=== PATIENT | male | born 1940 | race Caucasian/White ===

== ENCOUNTER 2017-05-15 10:20 | Inpatient (IN) | payer MEDICARE, BC ==
--- NOTE | 2017-04-29 21:50 | HP ---
HISTORY AND PHYSICAL: DATE OF ADMISSION/SURGERY: 05/15/17 DATE OF OFFICE VISIT: 04/28/17 SURGEON: Shiela Avalos MD* (dictated by SARAH Anderson). PROCEDURE: Right total hip arthroplasty. CHIEF COMPLAINT: Right hip pain. HISTORY OF PRESENT ILLNESS: Mr. 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 He has failed conservative management and has elected to proceed with a right total hip arthroplasty, which is scheduled for 05/15/17. PAST MEDICAL HISTORY: Epilepsy, hypertension, sleep apnea, AFib, Parkinson's, and glaucoma. PAST SURGICAL HISTORY: Appendectomy, cataract removal, bilateral total knee arthroplasties, and cholecystectomy. CURRENT MEDICATIONS: 1. Potassium chloride 20 mEq 3 tabs every day. 2. Propafenone HCl ER 425 mg every 12 hours. 3. Carbidopa and levodopa 25/100, take one and half tablets by mouth 20 minutes prior to breakfast, lunch, and dinner. 4. Metoprolol 125 mg daily. 5. Pradaxa 150 mg twice daily. 6. Depakote 500 mg 3 tabs every night. 7. Hydrochlorothiazide 25 mg daily. 8. Amlodipine 10 mg daily. 9. Citrucel 500 mg daily. 10. Allopurinol 100 mg 2 tabs daily. 11. Timolol maleate eyedrops. 12. Duloxetine 60 mg daily. 13. Cholestyramine 4 mg twice daily. ALLERGIES: To PENICILLIN. FAMILY HISTORY: Prostate cancer, breast cancer. SOCIAL HISTORY: He is a 77-year-old gentleman. He lives alone. He does not smoke, use drugs, or alcohol. REVIEW OF SYSTEMS: A complete 14-point review of systems was reviewed with the patient; it was positive for epilepsy. He denies history of DVT, PE, anesthesia problems, hepatitis C, or HIV. PHYSICAL EXAMINATION GENERAL: Well developed, well nourished, in no acute distress. VITAL SIGNS: He stands 5 feet 4 inches tall, weighs 233 pounds, his blood pressure is 130/64, his heart rate is 64. HEENT: Normocephalic, atraumatic. NECK: Supple. No palpable lymph nodes. PULMONARY: Lungs are clear to auscultation bilaterally. CARDIO: Regular rate and rhythm. Strong S1, S2. ABDOMEN: Soft, nontender, and nondistended. NEUROLOGICAL: Alert and oriented x3. Cranial nerves II through XII are intact. MUSCULOSKELETAL: Right lower extremity, the skin is intact. There are no open wounds or abrasions. He has decreased internal and external rotation of the right hip. He walks with an antalgic-type gait favoring his right leg. His lower extremity muscle group strengths are intact at 5/5. He has 2+ dorsalis pedis pulses and intact sensation. ASSESSMENT AND PLAN: Mr. Dewitt is a 77-year-old gentleman with complaints of right hip pain secondary to end-stage osteoarthritis. He has failed conservative management and has elected to proceed with a right total hip arthroplasty, which is scheduled for 05/15/[address] Avalos discussed the risks and benefits of the surgery at today's visit and all of his questions were answered. He will follow up with Dr. Avalos in 2 weeks after the surgery. SARAH ANDERSON [id number]/[facility] #: [id number] MTDAlida
[~2017-05-15 10:20] MED LIST: Buffered Lidocaine 0.9% SYRIN* 5 ML/SYR SYRINGE INTRADERM ONE; Gabapentin CAP(*) 400 MG PO ONE
[2017-05-15] MEDS ORDERED: ceFAZolin 2 GM PREMIX (*) 2 GM/50 ML BAG IVPB ONE (11:00)
[2017-05-15] MEDS ORDERED: Gabapentin CAP(*) 300 MG ONE (11:00)
[2017-05-15] MEDS ORDERED: fentaNYL* 50 MCG/ML 2 ML VIAL (100 MCG VIAL) ONE (13:47)
[2017-05-15] MEDS ORDERED: Midazolam* 1 MG/ML 10 ML VIAL (10 MG) ONE (13:47)
[2017-05-15] MEDS ORDERED: Morphine PF AMP (0.5MG/ML)* 5 MG/10 ML AMP ONE (13:47)
[2017-05-15] MEDS ORDERED: Bupivacaine 0.5% SDV PF* 30 ML VIAL ONE (13:48)
[2017-05-15] MEDS ORDERED: Polyethylene Glycol 3350* 17 GM PACKET PO PRN (14:49)
[2017-05-15] MEDS ORDERED: Bisacodyl SUPP* 10 MG SUPP PR PRN (14:49)
[2017-05-15] MEDS ORDERED: Nalbuphine* 20 MG/ML 1 ML VIAL IV PRN (15:06)
[2017-05-15] MEDS ORDERED: Naloxone* 0.4 MG/ML 1 ML VIAL IV PRN (15:06)
[2017-05-15] MEDS ORDERED: DiMENhydriNATE IV* 50 MG/ML VIAL IV PUSH PRN (15:06)
[2017-05-15] MEDS ORDERED: oxyCODONE/Acetamin 5/325 MG* TAB PO PRN (15:06)
--- NOTE | 2017-05-15 16:53 | RAD ---
INDICATION: Right total hip replacement surgery, preoperative study. COMPARISON: Comparison is made with a prior x-ray study of the right hip from April 28, 2017. TECHNIQUE: 2 portable AP films of the right hip were obtained in the OR prior to the patient's surgery. In addition a third film of the right hip was obtained during the patient's surgery. FINDINGS: The initial films demonstrate severe osteoarthritic change in the right hip. On the third film the patient is undergoing a total right hip replacement surgery. There is an acetabular prostheses in place and a femoral prostheses template in place. IMPRESSION: INTRAOPERATIVE CONTROL FILMS.
--- NOTE | 2017-05-15 18:34 | RAD ---
INDICATION: Status post total right hip replacement surgery. COMPARISON: Correlation is made with prior study from April 28, 2017. TECHNIQUE: An AP view of the pelvis and frontal and lateral views of the right hip were obtained. FINDINGS: The patient is status post total right hip replacement surgery. The bones and prostheses are in normal alignment. No fracture is seen. Incidental note is made of mild to moderate osteoarthritic change in the left hip. IMPRESSION: STATUS POST TOTAL RIGHT HIP REPLACEMENT SURGERY.
[2017-05-15] MEDS ORDERED: [UNRECOGNIZED DRUG - OTHER] PO SCH (21:00)
--- NOTE | 2017-05-15 21:31 | CONS ---
CC: Dr. Graeme Schwartz; Dr. Avalos * MEDICAL CONSULTATION REPORT: DATE OF CONSULT: 05/15/17 REQUESTING PROVIDER: Dr. Shiela Avalos. PRIMARY CARE PROVIDER: Dr. Graeme Schwartz. CONSULTING PROVIDER: SARAH Dougherty SUPERVISING PHYSICIAN: Dr. Clarita Leyva. CHIEF COMPLAINT: Status post right total hip arthroplasty with medical co- management consult for hospitalist. HISTORY OF PRESENT ILLNESS: This is a 77-year-old gentleman with Parkinson's as well as obstructive sleep apnea, paroxysmal atrial fibrillation, well- controlled seizure disorder, hypertension, and hyperlipidemia, who underwent elective right total hip arthroplasty with Dr. Avalos earlier today. Hospitalist group has been asked to consult for medical co-management. The patient was evaluated by his primary care provider as well as primary preparation department supervisor, Dr. Elliott, preoperatively. The patient underwent nuclear stress test earlier this month and his last echocardiogram was completed in February of this year as well. It appears that the patient was treated for urinary tract infection with 7 days of Macrobid preoperatively as his preop urinalysis and culture were positive for greater than 100,000 colonies of enterococcus. Recommendations from Dr. Elliott include holding his Pradaxa for 48 hours preoperatively and to resume postoperatively at the discretion of Orthopedic Surgery. The patient is instructed to continue his metoprolol and Rythmol perioperatively. At the time of evaluation, the patient is still somewhat sedated from anesthesia and unable to provide a full history but he does deny complaints of chest pain, shortness of breath, nausea, vomiting, or abdominal pain. Per primary care provider and Cardiology notes the patient is quite active, engages in regular exercise activities, and is able to climb at least 1 flight of stairs without stopping. PAST MEDICAL HISTORY: 1. Parkinson's. 2. Obstructive sleep apnea, noncompliant with CPAP. 3. Paroxysmal atrial fibrillation, maintained on Rythmol and metoprolol, and anticoagulated chronically with Pradaxa. 4. History of gout. 5. History of seizure disorder. 6. Hypertension. 7. Hyperlipidemia. PAST SURGICAL HISTORY: 1. Bilateral total knee arthroplasties. 2. Cholecystectomy. 3. Appendectomy. HOME MEDICATIONS: 1. Allopurinol 200 mg p.o. daily. 2. Amlodipine 10 mg p.o. daily. 3. Carbidopa/levodopa 1-1/2 tablets p.o. 3 times daily. 4. Pradaxa 150 mg p.o. twice daily. 5. Depakote 1500 mg p.o. at bedtime. 6. Duloxetine 60 mg p.o. daily. 7. Hydrochlorothiazide 25 mg p.o. daily. 8. Metoprolol tartrate 125 mg p.o. daily. 9. Potassium chloride 60 mEq p.o. daily. 10. Rythmol 425 mg p.o. twice daily. 11. Timolol 0.5% solution 1 drop in the right eye each evening. SOCIAL HISTORY: The patient is and lives alone. Nurse's aide helps with his providing medical care. He previously smoked a pipe and consumes 2 to 3 alcoholic beverages each evening. REVIEW OF SYSTEMS: As noted above in HPI, limited review of systems completed and noted to be negative. PHYSICAL EXAM: Most recent vitals, temperature 97.5 degrees Fahrenheit, pulse 52 beats per minute, respiratory rate 16, oxygen saturation 95% on 4 L, blood pressure 103/54 mmHg. General: This is a pleasant elderly gentleman, who is quite lethargic, still recovering from anesthesia in the recovery area. HEENT: Head is normocephalic, atraumatic. Mucous membranes are pink and moist. Cardiovascular: Heart has irregular rate and rhythm without murmurs, rubs, or gallops. Respiratory: Lungs are clear to auscultation without wheezes, crackles , or rhonchi. Abdomen: Abdomen is soft, nontender to palpation. Extremities: He has a hip pillow in place with surgical dressing over the right hip, no significant edema noted. Skin: Limited exam shows no concerning rashes or lesions. DIAGNOSTIC STUDIES/LAB DATA: Reviewed preop labs from 04/28/17, including a CBC and comprehensive metabolic panel. CBC is unremarkable with a preop hemoglobin of 15 g/dL. Preop metabolic panel is unremarkable with a creatinine of 0.95. Imaging: EKG from February 2017 showed sinus rhythm with first-degree block. Nuclear stress testing from 04/23/17 is read as low-risk study without evidence of ischemia or prior infarct. Echocardiogram from February of 2017 shows [id number] LVH with an EF of 55% to 60% and grade 1 diastolic dysfunction. ASSESSMENT AND PLAN: This is a 77-year-old gentleman with Parkinson's, obstructive sleep apnea, paroxysmal atrial fibrillation, seizure disorder, hypertension, hyperlipidemia, who underwent an elective total hip arthroplasty with Dr. Avalos earlier today. Hospitalist group has been consulted for medical co-management. 1. Status post right total hip arthroplasty - postoperative management including pain control, DVT prophylaxis, and discharge planning will be per Orthopedic Surgery. 2. Parkinson's - plan to continue his current home doses of Sinemet at this time. 3. Paroxysmal atrial fibrillation - plan to continue with Rythmol and metoprolol. Pradaxa has been held preoperatively, can be resumed postoperatively per clearance from Orthopedic Surgery. 4. Obstructive sleep apnea - the patient is not compliant with CPAP. 5. Seizure disorder - this is reportedly well controlled and we will plan to continue his home doses of Depakote and initiate seizure precautions during hospital stay. 6. Hypertension - the patient is hypotensive postoperatively. We will continue his beta erin but hold hydrochlorothiazide postop day 1 and if his metabolic panel is within normal limits, can resume for postop day 2. 7. Hyperlipidemia. 8. Code status. The patient is full code. 9. DVT prophylaxis will be per Orthopedic Surgery. He has Lovenox ordered. Recommend resuming Pradaxa when deemed appropriate by Orthopedic Surgery. 10. Healthcare proxy is the patient's daughter, Iamn Mcmanus. DISPOSITION: The patient is being admitted to orthopedic surgery service, hospitalist group will continue to follow along postoperatively. SARAH DOUGHERTY [id number]/[facility] #: [id number] RADHA
[2017-05-15] MEDS ORDERED: PROPAFENONE 325 MG PO ONE (22:00)
[2017-05-15] MEDS: Clindamycin 600 MG IVPREMIX(* 600 MG/50 ML SDV IV SCH (22:16)
[2017-05-15] MEDS: Timolol 0.5% OPTH.SOL* BTL RIGHT EYE SCH (22:20)
[2017-05-15] MEDS: Magnesium Hydroxide LIQ* 30 ML UDC PO SCH (22:22)
[2017-05-15] MEDS: Docusate CAP* 100 MG PO SCH (22:23)
[2017-05-15] MEDS: Divalproex DR TAB(*) 500 MG PO SCH (22:25)
[2017-05-16] MEDS: Clindamycin 600 MG IVPREMIX(* 600 MG/50 ML SDV IV SCH ×2 (04:09→11:21)
[2017-05-16] MEDS ORDERED: diPHENhydraMINE PO* 25 MG PO PRN (06:00)
[2017-05-16] MEDS ORDERED: Ondansetron INJ* 2 MG/ML VIAL IV PRN (06:00)
[2017-05-16] MEDS ORDERED: oxyCODONE TAB* 5 MG TAB PO PRN (06:00)
--- NOTE | 2017-05-16 07:08 | OP ---
OPERATIVE NOTE: DATE OF OPERATION: 05/15/17 DATE OF : 38 ATTENDING SURGEON: Shiela Avalos MD. METAL BONDING PRESS OPERATOR: SARAH Vásquez. Ms. Castro did help throughout the procedure with preparation of the leg, wound retraction, manipul ation of the hip, and would closure. ANESTHESIOLOGIST: Dr. Christian. ANESTHESIA: Spinal epidural. PRE-OP DIAGNOSIS: Severe endstage degenerative osteoarthritis of the right hip joint. POST-OP DIAGNOSIS: Severe endstage degenerative osteoarthritis of the right hip joint. OPERATIVE PROCEDURE: Right total hip arthroplasty. HARDWARE USED: This is uncemented Dierks total hip hardware. For the cup, a 58 cluster hole shell Tritanium cup. For the insert, a Trident X3 44F polyethylene insert, one single 25-mm cancellous bon e screw was used. For the femur, an Accolade TMZF, size 4.5 with a 127-degree neck. For the head, a 44 -2.5 ceramic V40 LFIT femoral head. COMPLICATIONS: None. EBL: 500 cc. SPECIMEN: Femoral head and acetabular reamings sent to pathology. BRIEF HISTORY/INDICATION: Mr. Dewitt is a 77-year-old gentleman with years of increasingly sever e right hip pain. He failed conservative treatment with antiinflammatories, pain medication, and amb ulatory assistive devices as well as physical therapy. Due to continued pain and decreased quality o f life, he elected to undergo a right total hip arthroplasty. Radiographs confirmed neap-ph-janh art hritis of the right hip. Informed consent was obtained from the patient. He understood the risks of surgery included but were not limited to bleeding, infection, damage to nearby structures, continued pain, need for further surgery, intraoperative fracture, nerve palsy, hardware failure or loosening, dislocation, leg length discrepancies, stroke, heart attack, blood clot, and . He wished to pr oceed. INTRAOPERATIVE FINDINGS: Intraoperatively, the patient had a markedly degenerative hip joint with fu ll-thickness loss of cartilage in the acetabulum and femoral head. He had a significant osteophyte fo rmation and calcification of the labrum. DESCRIPTION OF PROCEDURE: Mr. Dewitt was identified in the preanesthesia unit. His right lower e xtremity was marked as the correct operative site. Informed consent was signed and placed in the [facility] rt. The patient was taken to the operating room and placed under spinal epidural anesthesia without difficulty. Rubio catheter was placed. He was placed in the left lateral decubitus position on the peg board with all bony prominences well padded. Right lower extremity was prepped and draped in the usual sterile fashion. Preop time-out was made to correctly identify the patient, side, and site. Appropriate perioperative antibiotics were given within 1 hour of incision. A 16-cm posterior hip incision was made with a 10-blade. This was carried down sharply to the latera l fascia layer. There was at least 8 cm of subcutaneous fat. Lateral fascia layer was incised in matthew e with the skin incision. A large amount of fibrosis and bursitis along the trochanteric region was identified and excised. The piriformis and conjoint tendons were elevated off the posterolateral femu r using electrocautery and tagged with #5 Ethibonds. Next, the posterolateral capsular flap was made with electrocautery and tagged with #5 Ethibonds. The hip was carefully dislocated. Lesser troch t o center of the femoral head measured 60 mm. Oscillating saw was used to make the appropriate femora l neck cut and the femoral head was removed. The femur was carefully retracted anteriorly. After ap propriate placement of retractors, the acetabulum was easily visualized. There was a large amount of calcified labrum and osteophyte around the acetabulum. Anteriorly, some of this was removed. The ac etabulum was sequentially reamed up to a size 57 reamer. The 57 reamer had good fit with an establis hed subchondral bleeding bone bed. Trial 57 had good fit. Acetabular hardware chosen was a Tritaniu m cluster hole shell, size 58F. This was impacted without difficulty. Good stability was obtained. Appropriate abduction angle and anteversion was obtained. A single 25-mm screw was placed in the sup eroposterior quadrant for extra stability. A polyethylene liner was chosen. Trident X3 44F liner wa s chosen and impacted into the acetabulum. Stability of the liner was checked and rechecked and note d to be stable. Attention was next turned to preparation of the proximal femur. Canal finder and box cut osteotome w ere used to enter the proximal femur. Proximal femur was sequentially broached up to a size 4.5. e 4.5 broach had excellent fit. The 4.5 broach was left in and a 127 neck trial with a 44 head trial was chosen. Lesser troch to center of the femoral head measured 62 mm. The hip was reduced and carolyne en through range of motion. Hip was stable in all positions. There was good soft tissue tension and leg lengths were appropriate. The hip was carefully dislocated. The trials were all removed. Final implant chosen was an Accolade TMZF, size 4.5 with a 127-degree neck. This was impacted into the femoral canal without difficulty. This did sit up 2 mm more than the broach head. Therefore, a 44 -2.5 ceramic LFIT V40 femoral head was chosen as the final head. This was impacted onto the femoral neck without difficulty. Hip was reduced and taken through a range of motion. The hip was stable in all positions. The hip was copiou sly irrigated with sterile saline. Previously tagged capsule and tendons were reapproximated to the posterolateral femur through 2 trochanteric drill holes. The lateral fascia layer was closed using i nterrupted #1 Vicryls. The rest of the incision was closed in a layered fashion using 0 and 2-0 Vicry ls. Skin was closed using running Monocryl with Dermabond. Sterile Adaptic, 4x4s, and paper tape were used to cover the incision. The patient's anesthesia was reversed without difficulty. He was taken to the PACU in stable condition. Intended weightbearing w ill be weightbearing as tolerated. Intended DVT prophylaxis will be Coumadin with a Lovenox bridge. [id number]/[facility] #: [id number]
--- NOTE | 2017-05-16 07:41 | PN ---
Progress Note - Progress Note Date of Service: 05/16/17 SOAP: Subjective: Pt. is alert, nad. Low UOP overnight. Objective: RLE - hip dressing c/d/i. thigh swollen but compressible. distally nvi with + df/pf, full sens lt, 2+ dp pulse. Vital Signs: Temp Pulse Resp BP Pulse Ox 99.2 F 66 16 91/55 97 05/16/17 03:31 05/16/17 03:31 05/16/17 03:31 05/16/17 03:31 05/16/17 03:31 Laboratory Results - last 24 hr 05/15/17 05/15/17 10:36 10:36 INR (Anticoag Therapy) 1.00 APTT 31.4 Blood Type O Positive Antibody Screen Negative Assessment: 77 yo M pod 1 s/p RTHA Plan: PT/OT - wbat with post hip precautions Low UOP and hypotension - 1 L LR bolus given over 4 hours AM labs Pending lovenox in hospital - home on baseline pradaxa - no coumadin
[2017-05-16] MEDS ORDERED: Hydrochlorothiazide TAB* 25 MG PO SCH (09:00)
[2017-05-16] MEDS ORDERED: Potassium Chloride LIQUID* 20 MEQ PACKET PO SCH (09:00)
[2017-05-16] MEDS ORDERED: amLODIPine TAB* 5 MG PO SCH (09:00)
[2017-05-16] MEDS ORDERED: PROPAFENONE PO SCH ×2 (09:00)
[2017-05-16] MEDS: Metoprolol Tartrate TAB* 50 mg PO SCH (09:10)
[2017-05-16] MEDS: oxyCODONE/Acetamin 5/325 MG* TAB PO PRN ×3 (09:11→20:44)
[2017-05-16] MEDS: Vitamin THERAPEUTIC TAB PO SCH (09:11)
[2017-05-16] MEDS: Allopurinol TAB* 100 MG PO SCH (09:11)
[2017-05-16] MEDS: Docusate CAP* 100 MG PO SCH ×2 (09:11→20:44)
[2017-05-16] MEDS: DULoxetine DR CAP* 60 MG CAP.DR PO SCH (09:11)
[2017-05-16] MEDS: Enoxaparin(*) 40 MG/0.4 ML SYR SUBCUT SCH (09:12)
[2017-05-16] MEDS: Magnesium Hydroxide LIQ* 30 ML UDC PO SCH ×3 (09:12→20:49)
[2017-05-16] MEDS: PROPAFENONE PO SCH ×2 (09:16→20:47)
[2017-05-16 09:31] LABS: Hematocrit 30 % (42-52); Hemoglobin 9.9 g/dl (14.0-18.0)
[2017-05-16 09:41] LABS: Calcium 7.9 mg/dL (8.6-10.3); EGFR African American 46.3 (>60)
[2017-05-16 09:42] LABS: Potassium 5.5 mmol/L (3.5-5.0)
[2017-05-16] MEDS ORDERED: Dextrose 50% Syringe 50 ML* 25 GM/50 ML SYRINGE IV PUSH PRN ×3 (10:43→18:50)
[2017-05-16] MEDS ORDERED: Insulin LISPRO* 1 UNITS UNIT SUBCUT ONE ×3 (10:43→18:50)
[2017-05-16] MEDS ORDERED: NS 0.9% 1000 ML* 1,000 ML IV SCH (10:45)
[2017-05-16] MEDS ORDERED: Dextrose 50% VIAL 50 ml ONE (11:05)
[2017-05-16] MEDS: Carbidopa/Levodop 25/100 MG TAB(*) PO SCH ×2 (11:21→15:59)
[2017-05-16 14:20] LABS: BUN/Creatinine Ratio 16.7 (8-20); EGFR African American 38.4 (>60); EGFR Non-African American 29.9 (>60)
[2017-05-16 14:21] LABS: Potassium 5.4 mmol/L (3.5-5.0)
[2017-05-16] MEDS ORDERED: Sodium Polystyrene ORAL.SOL* 15 GM/60 ML BTL PO ONE ×2 (15:02→18:47)
[2017-05-16] MEDS: NS 0.9% 1000 ML* 1,000 ML IV SCH ×2 (15:13→22:43)
[2017-05-16 15:26] LABS: Urine Random Sodium < 18 mmol/L
[2017-05-16 16:29] LABS: Hematocrit 30 % (42-52); Hemoglobin 9.8 g/dl (14.0-18.0); Mean Corpuscular HGB Conc 33 g/dl (31-36); Mean Corpuscular Hemoglobin 33 pg (27-31); Mean Corpuscular Volume 101 fL (80-94); Mean Platelet Volume 8 um3 (7.4-10.4); Red Blood Count 2.97 10^6/ul (4.0-5.4); Red Cell Distribution Width 14 % (10.5-15); White Blood Count 18.5 10^3/ul (3.5-10.8)
[2017-05-16 16:30] LABS: Add Diff/Slide Review? Slide Review Added; Comments Flag Yes
--- NOTE | 2017-05-16 16:36 | PN ---
Subjective Date of Service: 05/16/17 Interval History: Patient is confused today with no comparison or family member to compare to baseline. Patient denies any pain or other acute complaint including palpitations, chest pain, SOB, dysuria, N/V, F/C, abdominal pain, or other pain. Patient had moderate hyperkalemia on morning labs with no symptoms or EKG changes. Insulin and dextrose given with only a drop for 5.5 to 5.4. Kayexelate given after. Family History: Unchanged from Admission Social History: Unchanged from Admission Past Medical History: Unchanged from Admission Objective Active Medications: Acetaminophen (Tylenol Tab*) 650 mg PO Q4H PRN PRN Reason: FEVER/PAIN Allopurinol (Zyloprim Tab*) 200 mg PO QAM [facility] Last Admin: 05/16/17 09:11 Dose: 200 mg Amlodipine Besylate (Norvasc Tab*) 10 mg PO QAM [facility] Last Admin: 05/16/17 09:11 Dose: 10 mg Bisacodyl (Dulcolax Supp*) 10 mg CO DAILY PRN PRN Reason: constipation Carbidopa/Levodopa (Sinemet 25/100 Tab(*)) 1.5 tab PO TID AC [facility] Last Admin: 05/16/17 15:59 Dose: 1.5 tab Dextrose (D50w Syringe 50 Ml*) 12.5 gm IV PUSH .FOR FS < 60 - SS PRN PRN Reason: FS < 60 Dextrose (D50w Syringe 50 Ml*) 25 gm IV PUSH ONCE PRN PRN Reason: FS < 60 Diphenhydramine HCl (Benadryl Po*) 25 mg PO Q6H PRN PRN Reason: itching Divalproex Sodium (Depakote Dr Tab(*)) 1,500 mg PO BEDTIME [facility] Last Admin: 05/15/17 22:25 Dose: 1,500 mg Docusate Sodium (Colace Cap*) 100 mg PO BID [facility] Last Admin: 05/16/17 09:11 Dose: 100 mg Duloxetine HCl (Cymbalta Cap*) 60 mg PO QAM [facility] Last Admin: 05/16/17 09:11 Dose: 60 mg Enoxaparin Sodium (Lovenox(*)) 40 mg SUBCUT Q24H [facility] Last Admin: 05/16/17 09:12 Dose: 40 mg Sodium Chloride (Ns 0.9% 1000 Ml*) 1,000 mls @ 250 mls/hr IV PER RATE [facility] Sodium Chloride (Ns 0.9% 1000 Ml*) 1,000 mls @ 150 mls/hr IV PER RATE [facility] Stop: 05/17/17 21:54 Last Admin: 05/16/17 15:13 Dose: 150 mls/hr Magnesium Hydroxide (Milk Of Magnesia Liq*) 30 ml PO BID [facility] Last Admin: 05/16/17 09:12 Dose: 30 ml Metoprolol Tartrate (Lopressor Tab*) 125 mg PO QAM [facility] Last Admin: 05/16/17 09:10 Dose: 125 mg Morphine Sulfate (Morphine Inj (Syringe)*) 2 mg IV Q2H PRN PRN Reason: PAIN - SEVERE Multivitamins (Theragran Tab*) 1 tab PO DAILY [facility] Last Admin: 05/16/17 09:11 Dose: 1 tab Pto: Propafenone Er (425 Cap) 1 admin PO BID [facility] Last Admin: 05/16/17 09:16 Dose: 1 admin Ondansetron HCl (Zofran Inj*) 4 mg IV Q6H PRN PRN Reason: nausea Oxycodone HCl (Roxycodone Tab*) 10 mg PO Q4H PRN PRN Reason: PAIN - MODERATE TO SEVERE Oxycodone/Acetaminophen (Percocet 5/325 Tab*) 1 tab PO Q4H PRN PRN Reason: PAIN Oxycodone/Acetaminophen (Percocet 5/325 Tab*) 2 tab PO Q4H PRN PRN Reason: PAIN Last Admin: 05/16/17 09:11 Dose: 2 tab Polyethylene Glycol/Electrolytes (Miralax*) 17 gm PO DAILY PRN PRN Reason: Constipation Timolol Maleate (Timoptic 0.5% Opth*) 1 drop RIGHT EYE QPM [facility] Last Admin: 05/15/17 22:20 Dose: 1 drop Vital Signs 05/15/17 05/15/17 05/15/17 17:15 17:20 17:25 Temperature 97.5 F Pulse Rate 52 52 53 Respiratory 16 14 14 Rate Blood Pressure 103/54 100/59 109/72 (mmHg) O2 Sat by Pulse 95 95 97 Oximetry 05/15/17 05/15/17 05/15/17 17:30 17:45 18:00 Temperature Pulse Rate 63 53 52 Respiratory 16 13 11 Rate Blood Pressure 110/47 104/33 107/46 (mmHg) O2 Sat by Pulse 98 98 98 Oximetry 05/15/17 05/15/17 05/15/17 18:15 18:30 19:00 Temperature Pulse Rate 53 53 53 Respiratory 12 13 12 Rate Blood Pressure 104/46 90/46 101/48 (mmHg) O2 Sat by Pulse 98 97 97 Oximetry 05/15/17 05/15/17 05/15/17 19:15 19:28 19:59 Temperature 97.5 F Pulse Rate 56 55 55 Respiratory 16 16 16 Rate Blood Pressure 102/45 102/47 117/51 (mmHg) O2 Sat by Pulse 98 97 97 Oximetry 05/15/17 05/15/17 05/15/17 20:33 21:29 21:59 Temperature 97.5 F Pulse Rate 56 59 Respiratory 14 18 18 Rate Blood Pressure 95/28 100/41 (mmHg) O2 Sat by Pulse 93 95 Oximetry 05/15/17 05/16/17 05/16/17 22:34 00:26 01:35 Temperature 98.4 F 97.9 F Pulse Rate 63 62 66 Respiratory 22 18 18 Rate Blood Pressure 96/45 92/43 93/45 (mmHg) O2 Sat by Pulse 96 93 93 Oximetry 05/16/17 05/16/17 05/16/17 03:31 07:19 08:00 Temperature 99.2 F 98.7 F Pulse Rate 66 67 Respiratory 16 17 18 Rate Blood Pressure 91/55 109/49 (mmHg) O2 Sat by Pulse 97 94 94 Oximetry 05/16/17 05/16/17 05/16/17 09:11 11:14 11:36 Temperature 98.3 F Pulse Rate 81 Respiratory 18 18 17 Rate Blood Pressure 87/38 (mmHg) O2 Sat by Pulse 98 Oximetry 05/16/17 05/16/17 05/16/17 11:40 15:32 16:00 Temperature 97.7 F Pulse Rate 63 Respiratory 17 Rate Blood Pressure 92/48 98/33 (mmHg) O2 Sat by Pulse 90 98 Oximetry Oxygen Devices in Use Now: Nasal Cannula - 2L Appearance: Patient is a 77yo male who appears stated age and is sitting in the chair in NAD. Eyes: No Scleral Icterus, PERRLA Ears/Nose/Mouth/Throat: NL Teeth, Lips, Gums, Clear Oropharnyx, - - Dry mucous membranes. Neck: NL Appearance and Movements; NL JVP, Trachea Midline Respiratory: Symmetrical Chest Expansion and Respiratory Effort, Clear to Auscultation Cardiovascular: NL Sounds; No Murmurs; No JVD, RRR, No Edema Abdominal: NL Sounds; No Tenderness; No Distention, No Hepatosplenomegaly Lymphatic: No Cervical Adenopathy Extremities: No Edema, No Clubbing, Cyanosis Skin: No Rash or Ulcers, No Nodules or Sclerosis Neurological: Alert and Oriented x 3, NL Sensation, NL Muscle Strength and Tone , - - CN II-XII intact. Slight tremor. Result Diagrams: 05/16/17 16:10 05/16/17 13:53 Assess/Plan/Problems-Billing Assessment: Patient is a 77yo male with a PMH significant for Parkinson's, HTN, HLD, Seizure disorder, and paroxysmal Atrial Fibrillation who is POD #1 from a R DORON. Patient has no pain, but has GLORIA with a FeNa of .1% and hyperkalemia. - Patient Problems (1) Post-operative state Current Visit: Yes Status: Acute Code(s): Z98.890 - OTHER SPECIFIED POSTPROCEDURAL STATES SNOMED Code(s): 55614720 Comment: Patient has no pain. Has a catheter and is producing only a small amout of urine. FeNa shows prerenal GLORIA. Patient has received 2L fluid and will continue with 2L more overnight. Patient has hyperkalemia without EKG changes which was unresopnsive to Insulin and Dextrose, patient given kayexelate. Patient denies BM or flatus. (2) GLORIA (acute kidney injury) Current Visit: Yes Status: Acute Code(s): N17.9 - ACUTE KIDNEY FAILURE, UNSPECIFIED SNOMED Code(s): 98041990 Comment: Patient has been hypotensive with a stable H/H. Responded somwhat to fluids. FeNa .1% indicating prerenal etiology, may represent early ATN. Patient had UTI preoperatively. Will recheck UA. Continue fluids, has received 2L and is scheduled for 2L more. Will recheck BMP tonight and in morning. (3) Hyperkalemia Current Visit: Yes Status: Acute Code(s): E87.5 - HYPERKALEMIA SNOMED Code (s): 95032756 Comment: Patient's K+ was 5.5 on morning lab which decreased to 5.4 after Insulin/ Dextrose. Given Kayexelate and will recheck. No EKG changes or symptoms. Likely related to GLORIA. (4) Parkinsons disease Current Visit: Yes Status: Acute Code(s): G20 - PARKINSON'S DISEASE SNOMED Code(s): 08184200 Comment: Signs of moderate Parkinson's, continue sinemet. (5) Paroxysmal A-fib Current Visit: Yes Status: Acute Code(s): I48.0 - PAROXYSMAL ATRIAL FIBRILLATION SNOMED Code(s): 773410148 Comment: Currently in NSR. Continue Metoprolol and Propafenone. Patient is hypotensive, will continue to monitor. (6) Hypertension Current Visit: Yes Status: Acute Code(s): I10 - ESSENTIAL (PRIMARY) HYPERTENSION SNOMED Code(s): 19172734 Comment: Hypotensive on metoprolol, continue to hold HCTZ, hold amlodipine, and hold timolol. Will resume when clinically indicated. (7) Seizure disorder Current Visit: Yes Status: Acute Code(s): G40.909 - EPILEPSY, UNSP, NOT INTRACTABLE, WITHOUT STATUS EPILEPTICUS SNOMED Code(s): 393035817 Comment: Well controlled. Continue depakote, seizure precautions. (8) MICHAEL (obstructive sleep apnea) Current Visit: Yes Status: Acute Code(s): G47.33 - OBSTRUCTIVE SLEEP APNEA ( ADULT) (PEDIATRIC) SNOMED Code(s): 65481536 Comment: Not Compliant with CPAP at home. (9) DVT prophylaxis Current Visit: Yes Status: Acute Code(s): BLB4105 - SNOMED Code(s): 427281192 Comment: Heparin SubQ and then Pradaxa at Discharge. (10) Full code status Current Visit: Yes Status: Acute Code(s): Z78.9 - OTHER SPECIFIED HEALTH STATUS SNOMED Code(s): 261678608 Status and Disposition: Disposition per primary team. Plan for PMRU on Friday.
[2017-05-16] MEDS: Timolol 0.5% OPTH.SOL* BTL RIGHT EYE SCH (16:43)
[2017-05-16 16:53] LABS: Eosinophils % 1 % (0-6); Immature Granulocytes 12 % (0-9); Neutrophil % 63 % (38-83)
[2017-05-16 16:54] LABS: Basophilic Stippling 1+; Macrocytosis 1+
[2017-05-16 18:16] LABS: BUN/Creatinine Ratio 16.1 (8-20); Calcium 7.8 mg/dL (8.6-10.3); EGFR African American 35.5 (>60); EGFR Non-African American 27.6 (>60)
[2017-05-16] MEDS ORDERED: Calcium Gluconate INJ* 1 GM in NS 0.9% 50 ML* 50 ML IVPB ONE (18:58)
[2017-05-16 19:15] LABS: Urine Bacteria Absent (Absent); Urine Bilirubin Negative (Negative); Urine Glucose Negative (Negative); Urine Nitrite Negative (Negative)
[2017-05-16] MEDS ORDERED: Insulin REGULAR(*) 1 UNITS UNIT IV PUSH ONE (20:05)
[2017-05-16] MEDS: Divalproex DR TAB(*) 500 MG PO SCH (20:44)
[2017-05-16 23:21] LABS: BUN/Creatinine Ratio 18.2 (8-20); Calcium 7.9 mg/dL (8.6-10.3); EGFR African American 37.4 (>60); EGFR Non-African American 29.1 (>60)
[2017-05-16 23:27] LABS: Potassium 5.5 mmol/L (3.5-5.0)
[2017-05-17] MEDS: oxyCODONE/Acetamin 5/325 MG* TAB PO PRN ×2 (01:02→21:11)
[2017-05-17] MEDS: Morphine INJ* 2 MG/ML 1 ML SYRINGE (TWO MG - NEW SYRINGE VERSION) IV PRN ×3 (01:06→20:46)
[2017-05-17 06:44] LABS: Hematocrit 28 % (42-52)
[2017-05-17 07:00] LABS: BUN/Creatinine Ratio 22.2 (8-20); Calcium 7.9 mg/dL (8.6-10.3); EGFR African American 44.6 (>60); EGFR Non-African American 34.7 (>60)
[2017-05-17 07:19] LABS: Potassium 5.4 mmol/L (3.5-5.0)
--- NOTE | 2017-05-17 08:20 | PN ---
Progress Note - Progress Note Date of Service: 05/17/17 SOAP: Subjective: Pt. is alert, states he has not had gas or BM. States he has not been OOB. Objective: RLE - dressing changed - inc c/d/i. thigh swollen, soft. distally nvi. B groin with skin crease breakdown. Vital Signs: Temp Pulse Resp BP Pulse Ox 97.8 F 75 16 104/43 93 05/17/17 07:19 05/17/17 07:19 05/17/17 07:19 05/17/17 07:19 05/17/17 07:19 Laboratory Results - last 24 hr 05/16/17 05/16/17 05/16/17 09:14 09:14 09:14 WBC RBC Hgb 9.9 L Hct 30 L MCV MCH MCHC RDW Plt Count MPV Immature Gran % (Auto) Neut % (Auto) Lymph % (Auto) Platte % (Auto) Eos % (Auto) Baso % (Auto) Absolute Neuts (auto) Absolute Lymphs (auto) Absolute Monos (auto) Absolute Eos (auto) Absolute Basos (auto) Absolute Nucleated RBC Neutrophils % Band Neutrophils % Lymphocytes % Monocytes % Eosinophils % Basophils % Nucleated RBC % Normal RBC Morphology Basophilic Stippling Macrocytosis INR (Anticoag Therapy) 1.16 H Sodium 134 Potassium 5.5 H Chloride 102 Carbon Dioxide 29 Anion Gap 3 BUN 33 H Creatinine 1.83 H Est GFR ( Amer) 46.3 Est GFR (Non-Af Amer) 36.0 BUN/Creatinine Ratio 18.0 Glucose 109 H POC Glucose (mg/dL) Calcium 7.9 L Urine Color Urine Appearance Urine pH Ur Specific [place] Urine Protein Urine Ketones Urine Blood Urine Nitrate Urine Bilirubin Urine Urobilinogen Ur Leukocyte Esterase Urine WBC (Auto) Urine RBC (Auto) Urine Bacteria Ur Random Creatinine Ur Random Sodium Urine Glucose 05/16/17 05/16/17 05/16/17 11:17 12:16 13:39 WBC RBC Hgb Hct MCV MCH MCHC RDW Plt Count MPV Immature Gran % (Auto) Neut % (Auto) Lymph % (Auto) Platte % (Auto) Eos % (Auto) Baso % (Auto) Absolute Neuts (auto) Absolute Lymphs (auto) Absolute Monos (auto) Absolute Eos (auto) Absolute Basos (auto) Absolute Nucleated RBC Neutrophils % Band Neutrophils % Lymphocytes % Monocytes % Eosinophils % Basophils % Nucleated RBC % Normal RBC Morphology Basophilic Stippling Macrocytosis INR (Anticoag Therapy) Sodium Potassium Chloride Carbon Dioxide Anion Gap BUN Creatinine Est GFR ( Amer) Est GFR (Non-Af Amer) BUN/Creatinine Ratio Glucose POC Glucose (mg/dL) 291 H 153 H 91 Calcium Urine Color Urine Appearance Urine pH Ur Specific [place] Urine Protein Urine Ketones Urine Blood Urine Nitrate Urine Bilirubin Urine Urobilinogen Ur Leukocyte Esterase Urine WBC (Auto) Urine RBC (Auto) Urine Bacteria Ur Random Creatinine Ur Random Sodium Urine Glucose 05/16/17 05/16/17 05/16/17 13:53 14:15 14:48 WBC RBC Hgb Hct MCV MCH MCHC RDW Plt Count MPV Immature Gran % (Auto) Neut % (Auto) Lymph % (Auto) Platte % (Auto) Eos % (Auto) Baso % (Auto) Absolute Neuts (auto) Absolute Lymphs (auto) Absolute Monos (auto) Absolute Eos (auto) Absolute Basos (auto) Absolute Nucleated RBC Neutrophils % Band Neutrophils % Lymphocytes % Monocytes % Eosinophils % Basophils % Nucleated RBC % Normal RBC Morphology Basophilic Stippling Macrocytosis INR (Anticoag Therapy) Sodium 134 Potassium 5.4 H Chloride 102 Carbon Dioxide 30 Anion Gap 2 BUN 36 H Creatinine 2.15 H Est GFR ( Amer) 38.4 Est GFR (Non-Af Amer) 29.9 BUN/Creatinine Ratio 16.7 Glucose 65 L POC Glucose (mg/dL) 102 H Calcium 8.0 L Urine Color Urine Appearance Urine pH Ur Specific [place] Urine Protein Urine Ketones Urine Blood Urine Nitrate Urine Bilirubin Urine Urobilinogen Ur Leukocyte Esterase Urine WBC (Auto) Urine RBC (Auto) Urine Bacteria Ur Random Creatinine 351.06 Ur Random Sodium < 18 Urine Glucose 05/16/17 05/16/17 05/16/17 16:10 17:53 18:30 WBC 18.5 H RBC 2.97 L Hgb 9.8 L Hct 30 L MCV 101 H MCH 33 H MCHC 33 RDW 14 Plt Count 182 MPV 8 Immature Gran % (Auto) 12 H Neut % (Auto) 69.5 Lymph % (Auto) 15.4 L Platte % (Auto) 14.1 H Eos % (Auto) 0.6 Baso % (Auto) 0.4 Absolute Neuts (auto) 12.9 H Absolute Lymphs (auto) 2.8 Absolute Monos (auto) 2.6 H Absolute Eos (auto) 0.1 Absolute Basos (auto) 0.1 Absolute Nucleated RBC 0 Neutrophils % 63 Band Neutrophils % 12 H Lymphocytes % 8 L Monocytes % 15 H Eosinophils % 1 Basophils % 1 Nucleated RBC % 0 Normal RBC Morphology Not Reportable Basophilic Stippling 1+ Macrocytosis 1+ INR (Anticoag Therapy) Sodium 135 Potassium 6.0 H Chloride 103 Carbon Dioxide 29 Anion Gap 3 BUN 37 H Creatinine 2.30 H Est GFR ( Amer) 35.5 Est GFR (Non-Af Amer) 27.6 BUN/Creatinine Ratio 16.1 Glucose 120 H POC Glucose (mg/dL) Calcium 7.8 L Urine Color [place] Urine Appearance Cloudy Urine pH 5.0 Ur Specific [place] 1.024 Urine Protein 1+(30 mg/dl) H Urine Ketones Trace H Urine Blood 2+ H Urine Nitrate Negative Urine Bilirubin Negative Urine Urobilinogen Negative Ur Leukocyte Esterase 1+ H Urine WBC (Auto) 3+(>20/hpf) H Urine RBC (Auto) 3+(>10/hpf) H Urine Bacteria Absent Ur Random Creatinine Ur Random Sodium Urine Glucose Negative 05/16/17 05/16/17 05/16/17 21:17 22:05 22:52 WBC RBC Hgb Hct MCV MCH MCHC RDW Plt Count MPV Immature Gran % (Auto) Neut % (Auto) Lymph % (Auto) Platte % (Auto) Eos % (Auto) Baso % (Auto) Absolute Neuts (auto) Absolute Lymphs (auto) Absolute Monos (auto) Absolute Eos (auto) Absolute Basos (auto) Absolute Nucleated RBC Neutrophils % Band Neutrophils % Lymphocytes % Monocytes % Eosinophils % Basophils % Nucleated RBC % Normal RBC Morphology Basophilic Stippling Macrocytosis INR (Anticoag Therapy) Sodium 134 Potassium 5.5 H Chloride 103 Carbon Dioxide 28 Anion Gap 3 BUN 40 H Creatinine 2.20 H Est GFR ( Amer) 37.4 Est GFR (Non-Af Amer) 29.1 BUN/Creatinine Ratio 18.2 Glucose 100 POC Glucose (mg/dL) 179 H 130 H Calcium 7.9 L Urine Color Urine Appearance Urine pH Ur Specific [place] Urine Protein Urine Ketones Urine Blood Urine Nitrate Urine Bilirubin Urine Urobilinogen Ur Leukocyte Esterase Urine WBC (Auto) Urine RBC (Auto) Urine Bacteria Ur Random Creatinine Ur Random Sodium Urine Glucose 05/16/17 05/17/17 05/17/17 23:34 00:45 05:46 WBC RBC Hgb 9.0 L Hct 28 L MCV MCH MCHC RDW Plt Count MPV Immature Gran % (Auto) Neut % (Auto) Lymph % (Auto) [place] % (Auto) Eos % (Auto) Baso % (Auto) Absolute Neuts (auto) Absolute Lymphs (auto) Absolute Monos (auto) Absolute Eos (auto) Absolute Basos (auto) Absolute Nucleated RBC Neutrophils % Band Neutrophils % Lymphocytes % Monocytes % Eosinophils % Basophils % Nucleated RBC % Normal RBC Morphology Basophilic Stippling Macrocytosis INR (Anticoag Therapy) Sodium Potassium Chloride Carbon Dioxide Anion Gap BUN Creatinine Est GFR ( Amer) Est GFR (Non-Af Amer) BUN/Creatinine Ratio Glucose POC Glucose (mg/dL) 133 H 131 H Calcium Urine Color Urine Appearance Urine pH Ur Specific [place] Urine Protein Urine Ketones Urine Blood Urine Nitrate Urine Bilirubin Urine Urobilinogen Ur Leukocyte Esterase Urine WBC (Auto) Urine RBC (Auto) Urine Bacteria Ur Random Creatinine Ur Random Sodium Urine Glucose 05/17/17 05:46 WBC RBC Hgb Hct MCV MCH MCHC RDW Plt Count MPV Immature Gran % (Auto) Neut % (Auto) Lymph % (Auto) [place]atte % (Auto) Eos % (Auto) Baso % (Auto) Absolute Neuts (auto) Absolute Lymphs (auto) Absolute Monos (auto) Absolute Eos (auto) Absolute Basos (auto) Absolute Nucleated RBC Neutrophils % Band Neutrophils % Lymphocytes % Monocytes % Eosinophils % Basophils % Nucleated RBC % Normal RBC Morphology Basophilic Stippling Macrocytosis INR (Anticoag Therapy) Sodium 135 Potassium 5.4 H Chloride 104 Carbon Dioxide 27 Anion Gap 4 BUN 42 H Creatinine 1.89 H Est GFR ( Amer) 44.6 Est GFR (Non-Af Amer) 34.7 BUN/Creatinine Ratio 22.2 H Glucose 95 POC Glucose (mg/dL) Calcium 7.9 L Urine Color Urine Appearance Urine pH Ur Specific [place] Urine Protein Urine Ketones Urine Blood Urine Nitrate Urine Bilirubin Urine Urobilinogen Ur Leukocyte Esterase Urine WBC (Auto) Urine RBC (Auto) Urine Bacteria Ur Random Creatinine Ur Random Sodium Urine Glucose Assessment: 77 yo M pod 2 s/p RTHA Plan: 1- need bid groin skin care, heel booties, qshift position changes 2- mobilize with PT TODAY - d/w desirae de la cruz PT 3- oobtc TID with all meals 4- appreciate hospitalist management of BESS and hyperkalemia
[2017-05-17] MEDS ORDERED: Sodium Polystyrene RECTAL* 30 GM/120 ML RECTAL.SUS PR ONE (08:30)
[2017-05-17] MEDS: Metoprolol Tartrate TAB* 50 mg PO SCH (08:43)
[2017-05-17] MEDS: DULoxetine DR CAP* 60 MG CAP.DR PO SCH (08:43)
[2017-05-17] MEDS: Vitamin THERAPEUTIC TAB PO SCH (08:43)
[2017-05-17] MEDS: Magnesium Hydroxide LIQ* 30 ML UDC PO SCH ×2 (08:44→21:08)
[2017-05-17] MEDS: Docusate CAP* 100 MG PO SCH ×2 (08:44→21:12)
[2017-05-17] MEDS: Carbidopa/Levodop 25/100 MG TAB(*) PO SCH ×3 (08:44→16:36)
[2017-05-17] MEDS: Allopurinol TAB* 100 MG PO SCH (08:44)
[2017-05-17] MEDS: Enoxaparin(*) 40 MG/0.4 ML SYR SUBCUT SCH (08:50)
[2017-05-17] MEDS: PROPAFENONE PO SCH ×2 (11:05→21:12)
[2017-05-17 11:08] LABS: BUN/Creatinine Ratio 24.4 (8-20); Calcium 8.1 mg/dL (8.6-10.3); EGFR African American 48.4 (>60); EGFR Non-African American 37.6 (>60); Potassium 4.9 mmol/L (3.5-5.0)
[2017-05-17] MEDS ORDERED: Magnesium Sulfate 2 GM IV* 2 GM/50 ML BAG IVPB ONE (11:40)
--- NOTE | 2017-05-17 11:58 | RAD ---
HISTORY: Altered mental status, weakness COMPARISONS: October 12, 2003 TECHNIQUE: Multiple contiguous axial CT scans were obtained of the head without intravenous contrast. FINDINGS: HEMORRHAGE/INFARCT: There is no hemorrhage or acute infarct. MASSES/SHIFT: There is no mass or shift. EXTRA-AXIAL SPACES: There are no extra-axial fluid collections. SULCI AND VENTRICLES: The sulci and ventricles are normal in size and position for the patient's stated age. CEREBRUM: There are no focal parenchymal abnormalities. BRAINSTEM: There are no focal parenchymal abnormalities. CEREBELLUM: There are no focal parenchymal abnormalities. VESSELS: The vessels are grossly normal. PARANASAL SINUSES: The paranasal sinuses are clear. ORBITS: There is a small radio opaque foreign body in the palpebral soft tissues of the right orbit, stable from 2003 BONES AND SOFT TISSUE: No bone or soft tissue abnormalities are noted. OTHER: None IMPRESSION: NO ACUTE INTRACRANIAL PATHOLOGY.
--- NOTE | 2017-05-17 11:59 | RAD ---
HISTORY: Tachypnea, dyspnea COMPARISONS: April 28, 2017 VIEWS: 3: Frontal and lateral views of the chest. FINDINGS: CARDIOMEDIASTINAL SILHOUETTE: The cardiomediastinal silhouette is normal. EZEKIEL: The ezekiel are normal. PLEURA: There is blunting of the costophrenic angles. LUNG PARENCHYMA: The lung volumes are low. The lungs are clear. ABDOMEN: The upper abdomen is clear. There is no subphrenic gas. BONES AND SOFT TISSUES: No bone or soft tissue abnormalities are noted. OTHER: None. IMPRESSION: LOW LUNG VOLUMES. SMALL BILATERAL PLEURAL EFFUSIONS. NO ACTIVE CARDIOPULMONARY DISEASE.
[2017-05-17] MEDS ORDERED: Furosemide TAB* 20 MG PO ONE (13:22)
--- NOTE | 2017-05-17 16:29 | PN ---
Subjective Date of Service: 05/17/17 Interval History: Patient has been consistently lethargic since the surgery, improving somewhat overnight but still sleeping frequently on and off. Patient is A/Ox3 and able to follow commands but is easily distractable. Family states patient is normally "sharp" but most recent MOCA with Neurologist was . Patient had weakness noted when PT attempted to work with him. Having only 2/5 strength in bilateral LE, worse in left than right. Patient was able to perform somewhat better with provider, with 3/5 strength in hip flexors and 4/5 strength in foot dorsiflexion and plantarflexion. Patient has improved weakness in LUE from exam yesterday when family was concerned. No cranial nerve abnormalities on exam. CT of the brain normal. Patient denies any complaints besides pain and heaviness in his B/L LE around the ankles. Patient had no CP. N/V, F/C, Abdominal pain, or other pain. Patient complained of mild and brief pain around catheter site. Patient had a small BM today. Family History: Unchanged from Admission Social History: Unchanged from Admission Past Medical History: Unchanged from Admission Objective Active Medications: Acetaminophen (Tylenol Tab*) 650 mg PO Q4H PRN PRN Reason: FEVER/PAIN Allopurinol (Zyloprim Tab*) 200 mg PO QAM [facility] Last Admin: 05/17/17 08:44 Dose: 200 mg Bisacodyl (Dulcolax Supp*) 10 mg [place] DAILY PRN PRN Reason: constipation Carbidopa/Levodopa (Sinemet 25/100 Tab(*)) 1.5 tab PO TID AC [facility] Last Admin: 05/17/17 12:15 Dose: 1.5 tab Dextrose (D50w Syringe 50 Ml*) 25 gm IV PUSH ONCE PRN PRN Reason: FS < 60 Last Admin: 05/16/17 20:37 Dose: 25 gm Diphenhydramine HCl (Benadryl Po*) 25 mg PO Q6H PRN PRN Reason: itching Divalproex Sodium (Depakote Dr Tab(*)) 1,500 mg PO BEDTIME [facility] Last Admin: 05/16/17 20:44 Dose: 1,500 mg Docusate Sodium (Colace Cap*) 100 mg PO BID [facility] Last Admin: 05/17/17 08:44 Dose: 100 mg Duloxetine HCl (Cymbalta Cap*) 60 mg PO QAM [facility] Last Admin: 05/17/17 08:43 Dose: 60 mg Enoxaparin Sodium (Lovenox(*)) 40 mg SUBCUT Q24H [facility] Last Admin: 05/17/17 08:50 Dose: 40 mg Magnesium Hydroxide (Milk Of Magnesia Liq*) 30 ml PO BID [facility] Last Admin: 05/17/17 08:44 Dose: 30 ml Metoprolol Tartrate (Lopressor Tab*) 125 mg PO QAM [facility] Last Admin: 05/17/17 08:43 Dose: 125 mg Morphine Sulfate (Morphine Inj (Syringe)*) 2 mg IV Q2H PRN PRN Reason: PAIN - SEVERE Last Admin: 05/17/17 12:14 Dose: 2 mg Multivitamins (Theragran Tab*) 1 tab PO DAILY [facility] Last Admin: 05/17/17 08:43 Dose: 1 tab Pto: Propafenone Er (425 Cap) 1 admin PO BID [facility] Last Admin: 05/17/17 11:05 Dose: 1 admin Ondansetron HCl (Zofran Inj*) 4 mg IV Q6H PRN PRN Reason: nausea Oxycodone HCl (Roxycodone Tab*) 10 mg PO Q4H PRN PRN Reason: PAIN - MODERATE TO SEVERE Oxycodone/Acetaminophen (Percocet 5/325 Tab*) 1 tab PO Q4H PRN PRN Reason: PAIN Last Admin: 05/17/17 01:02 Dose: 1 tab Oxycodone/Acetaminophen (Percocet 5/325 Tab*) 2 tab PO Q4H PRN PRN Reason: PAIN Last Admin: 05/16/17 09:11 Dose: 2 tab Polyethylene Glycol/Electrolytes (Miralax*) 17 gm PO DAILY PRN PRN Reason: Constipation Vital Signs 05/16/17 05/16/17 05/16/17 16:43 19:11 19:48 Temperature 98.1 F Pulse Rate 70 Respiratory 20 18 20 Rate Blood Pressure 102/50 (mmHg) O2 Sat by Pulse 93 Oximetry 05/16/17 05/16/17 05/16/17 20:00 20:44 23:55 Temperature 98.5 F Pulse Rate 72 Respiratory 20 22 20 Rate Blood Pressure 98/32 (mmHg) O2 Sat by Pulse 96 Oximetry 05/16/17 05/17/17 05/17/17 23:56 00:00 00:56 Temperature Pulse Rate Respiratory 20 Rate Blood Pressure 112/52 (mmHg) O2 Sat by Pulse 94 Oximetry 05/17/17 05/17/17 05/17/17 01:02 01:06 03:39 Temperature Pulse Rate Respiratory 22 22 16 Rate Blood Pressure (mmHg) O2 Sat by Pulse Oximetry 05/17/17 05/17/17 05/17/17 03:42 03:44 07:19 Temperature 97.2 F 97.8 F Pulse Rate 73 75 Respiratory 16 16 16 Rate Blood Pressure 101/41 104/43 (mmHg) O2 Sat by Pulse 95 93 Oximetry 05/17/17 05/17/17 05/17/17 08:00 10:34 11:45 Temperature 98.6 F Pulse Rate 77 Respiratory 28 20 20 Rate Blood Pressure 99/45 (mmHg) O2 Sat by Pulse 96 Oximetry 05/17/17 05/17/17 05/17/17 12:14 15:00 15:01 Temperature Pulse Rate Respiratory 20 18 20 Rate Blood Pressure (mmHg) O2 Sat by Pulse Oximetry 05/17/17 05/17/17 15:05 15:57 Temperature 97.4 F Pulse Rate 76 Respiratory 20 16 Rate Blood Pressure 109/49 (mmHg) O2 Sat by Pulse 96 Oximetry Oxygen Devices in Use Now: Nasal Cannula - 4.5L Appearance: Patient is a 77yo male who appears stated age and is sitting in the bed in NAD. Eyes: No Scleral Icterus, PERRLA Ears/Nose/Mouth/Throat: NL Teeth, Lips, Gums, Clear Oropharnyx, Mucous Membranes Moist Neck: NL Appearance and Movements; NL JVP, Trachea Midline Respiratory: Symmetrical Chest Expansion and Respiratory Effort, - - Slight inspiratory and expiratory crackles in B/L LL Cardiovascular: NL Sounds; No Murmurs; No JVD, RRR, - - 1+ pitting edema in B/L LE up to the knees. Pulses 2+ in B/L Radial and Left DP and PT areas. Pulses 1+ in DP and PT in R foot, brisk capillary refill. Abdominal: NL Sounds; No Tenderness; No Distention, No Hepatosplenomegaly Lymphatic: No Cervical Adenopathy Extremities: No Clubbing, Cyanosis Skin: No Nodules or Sclerosis, - - Surgical incision covered by CDI dressing. No signs of hematoma or ecchymosis. Neurological: Alert and Oriented x 3, NL Sensation, - - Reflexes 2+ in B/L Biceps, Patellar and Achilles tendons. Strength 5/5 in RUE distally and proximally. Strength 4/5 in LUE distally and proximally. Strength 3/5 and symmetric in B/L LE proximally and 4/5 in B/L LE distally. Result Diagrams: 05/17/17 05:46 05/17/17 10:37 Assess/Plan/Problems-Billing Assessment: Patient is a 77yo male with a PMH significant for Parkinson's, HTN, HLD, Seizure disorder, and paroxysmal Atrial Fibrillation who is POD #1 from a R DORON. Patient has no pain, but has GLORIA with a FeNa of .1% and hyperkalemia. - Patient Problems (1) Post-operative state Current Visit: Yes Status: Acute Code(s): Z98.890 - OTHER SPECIFIED POSTPROCEDURAL STATES SNOMED Code(s): 13400466 Comment: Patient has no pain at surgical incision. Has a catheter and is producing only a small amout of urine. FeNa shows prerenal GLORIA. Patient has received 4L fluid with improvement in Renal function. Hyperkalemia resolved. (2) GLORIA (acute kidney injury) Current Visit: Yes Status: Acute Code(s): N17.9 - ACUTE KIDNEY FAILURE, UNSPECIFIED SNOMED Code(s): 11273724 Comment: Patient has been low end of normotensive with a stable H/H. Responded to fluids , currently 1.81. FeNa .1% indicating prerenal etiology, may represent early ATN. Patient had UTI preoperatively. UA shows Blood, RBC, Leukocyte esterase and WBC. Patient was treated with Bactrim for UTI preoperatively. Waiting on culture, will not treat at this time. (3) Hyperkalemia Current Visit: Yes Status: Acute Code(s): E87.5 - HYPERKALEMIA SNOMED Code (s): 06927943 Comment: Patient's K+ now decreased to 4.7 after 45mL kayexalate and 2 rounds of 10u insulin and dextrose. Was asymptomatic, will continue to monitor. (4) Parkinsons disease Current Visit: Yes Status: Acute Code(s): G20 - PARKINSON'S DISEASE SNOMED Code(s): 79336410 Comment: Signs of moderate Parkinson's, continue sinemet. Could be contributing to postoperative weakness. (5) Paroxysmal A-fib Current Visit: Yes Status: Acute Code(s): I48.0 - PAROXYSMAL ATRIAL FIBRILLATION SNOMED Code(s): 818827248 Comment: Currently in NSR. Continue Metoprolol and Propafenone. Patient is normotensive, will continue to monitor. (6) Hypertension Current Visit: Yes Status: Acute Code(s): I10 - ESSENTIAL (PRIMARY) HYPERTENSION SNOMED Code(s): 56150389 Comment: Normotensive on metoprolol, continue to hold HCTZ, hold amlodipine, and hold timolol. Will resume when clinically indicated. (7) Weakness Current Visit: Yes Status: Acute Code(s): R53.1 - WEAKNESS SNOMED Code(s) : 26164766 Comment: Unable to work with PT today due to weakness. Slight improvement in interval between exams. Worse on left than right like parkinson's tremor. CT of the head shows no CVA. Could be due to hyperkalemia, hypomagnesemia, post operative state , parkinson's disease or some combination. Will fix electrolytes, continue simemet and encourage movement and consult neuro if no improvement. (8) Seizure disorder Current Visit: Yes Status: Acute Code(s): G40.909 - EPILEPSY, UNSP, NOT INTRACTABLE, WITHOUT STATUS EPILEPTICUS SNOMED Code(s): 803279124 Comment: Well controlled. Continue depakote, seizure precautions. (9) MICHAEL (obstructive sleep apnea) Current Visit: Yes Status: Acute Code(s): G47.33 - OBSTRUCTIVE SLEEP APNEA ( ADULT) (PEDIATRIC) SNOMED Code(s): 63872313 Comment: Not Compliant with CPAP at home. (10) DVT prophylaxis Current Visit: Yes Status: Acute Code(s): TQK2163 - SNOMED Code(s): 680841244 Comment: Heparin SubQ and then Pradaxa at Discharge. (11) Full code status Current Visit: Yes Status: Acute Code(s): Z78.9 - OTHER SPECIFIED HEALTH STATUS SNOMED Code(s): 638775987 Status and Disposition: Disposition per primary team. Plan for PMRU if able to participate.
[2017-05-17] MEDS: Divalproex DR TAB(*) 500 MG PO SCH (21:11)
[2017-05-18] MEDS: Morphine INJ* 2 MG/ML 1 ML SYRINGE (TWO MG - NEW SYRINGE VERSION) IV PRN ×2 (00:28→13:16)
[2017-05-18] MEDS: oxyCODONE/Acetamin 5/325 MG* TAB PO PRN ×2 (03:07→18:08)
[2017-05-18 05:24] LABS: Hematocrit 26 % (42-52); Hemoglobin 8.5 g/dl (14.0-18.0); Mean Corpuscular HGB Conc 33 g/dl (31-36); Mean Corpuscular Hemoglobin 33 pg (27-31); Mean Corpuscular Volume 100 fL (80-94); Mean Platelet Volume 8 um3 (7.4-10.4); Red Blood Count 2.57 10^6/ul (4.0-5.4); Red Cell Distribution Width 14 % (10.5-15); White Blood Count 12.9 10^3/ul (3.5-10.8)
[2017-05-18 05:25] LABS: Comments Flag Yes
[2017-05-18 05:54] LABS: Albumin 2.4 g/dL (3.2-5.2); BUN/Creatinine Ratio 32.7 (8-20); C Reactive Protein 278.63 mg/L (< 5.00); Calcium 8.2 mg/dL (8.6-10.3); EGFR African American 80.7 (>60); EGFR Non-African American 62.8 (>60); Globulin 2.5 g/dL (2-4); Magnesium 2.1 mg/dL (1.9-2.7); Potassium 4.6 mmol/L (3.5-5.0); Total Bilirubin 0.4 mg/dL (0.2-1.0); Total Protein 4.9 g/dL (6.4-8.9)
[2017-05-18] MEDS: Magnesium Hydroxide LIQ* 30 ML UDC PO SCH ×2 (08:26→21:46)
[2017-05-18] MEDS: DULoxetine DR CAP* 60 MG CAP.DR PO SCH (08:26)
[2017-05-18] MEDS: Vitamin THERAPEUTIC TAB PO SCH (08:26)
[2017-05-18] MEDS: Docusate CAP* 100 MG PO SCH ×2 (08:26→21:47)
[2017-05-18] MEDS: Allopurinol TAB* 100 MG PO SCH (08:26)
[2017-05-18] MEDS: Enoxaparin(*) 40 MG/0.4 ML SYR SUBCUT SCH (08:27)
[2017-05-18] MEDS: Carbidopa/Levodop 25/100 MG TAB(*) PO SCH ×3 (08:27→16:39)
[2017-05-18] MEDS: Metoprolol Tartrate TAB* 50 mg PO SCH (08:27)
[2017-05-18] MEDS: PROPAFENONE PO SCH ×2 (08:27→21:47)
--- NOTE | 2017-05-18 09:03 | PN ---
Progress Note - Progress Note Date of Service: 05/18/17 SOAP: Subjective: Pt. is alert, reports he got out of bed yesterday. He has had weakness BLE - CT head negative Objective: RLE - dressing c/d/i. thigh soft, distally +df/pf, 2+ dp pulse. Vital Signs: Temp Pulse Resp BP Pulse Ox 97.6 F 71 18 114/54 97 05/18/17 07:15 05/18/17 07:15 05/18/17 07:27 05/18/17 08:28 05/18/17 07:37 Laboratory Results - last 24 hr 05/17/17 05/17/17 05/18/17 10:37 10:37 05:05 WBC 12.9 H RBC 2.57 L Hgb 8.5 L Hct 26 L MCV 100 H MCH 33 H MCHC 33 RDW 14 Plt Count 129 L MPV 8 Neut % (Auto) 76.8 Lymph % (Auto) 9.0 L Jones % (Auto) 13.0 H Eos % (Auto) 0.8 Baso % (Auto) 0.4 Absolute Neuts (auto) 9.9 H Absolute Lymphs (auto) 1.2 Absolute Monos (auto) 1.7 H Absolute Eos (auto) 0.1 Absolute Basos (auto) 0.1 Absolute Nucleated RBC 0 Nucleated RBC % 0 Sodium 136 Potassium 4.9 Chloride 105 Carbon Dioxide 27 Anion Gap 4 BUN 43 H Creatinine 1.76 H Est GFR ( Amer) 48.4 Est GFR (Non-Af Amer) 37.6 BUN/Creatinine Ratio 24.4 H Glucose 99 Calcium 8.1 L Magnesium 1.7 L Total Bilirubin AST ALT Alkaline Phosphatase Total Creatine Kinase C-Reactive Protein Total Protein Albumin Globulin Albumin/Globulin Ratio 05/18/17 05:05 WBC RBC Hgb Hct MCV MCH MCHC RDW Plt Count MPV Neut % (Auto) Lymph % (Auto) Jones % (Auto) Eos % (Auto) Baso % (Auto) Absolute Neuts (auto) Absolute Lymphs (auto) Absolute Monos (auto) Absolute Eos (auto) Absolute Basos (auto) Absolute Nucleated RBC Nucleated RBC % Sodium 135 Potassium 4.6 Chloride 103 Carbon Dioxide 30 Anion Gap 2 BUN 37 H Creatinine 1.13 Est GFR ( Amer) 80.7 Est GFR (Non-Af Amer) 62.8 BUN/Creatinine Ratio 32.7 H Glucose 100 Calcium 8.2 L Magnesium 2.1 Total Bilirubin 0.40 AST 31 ALT 8 Alkaline Phosphatase 155 H Total Creatine Kinase 130 C-Reactive Protein 278.63 H Total Protein 4.9 L Albumin 2.4 L Globulin 2.5 Albumin/Globulin Ratio 1.0 Assessment: 77 yo M with multiple medical comorbidities POD 3 s/p RTHA Plan: wbat rle - post hip precautions pt/ot oobtc with meals heel protection and qshift position changes d/w hospitalist - will get neuro consult due to parkisons' and weakness renal insuff and hyperkalemia improving today
[2017-05-18] MEDS ORDERED: Furosemide TAB* 20 MG PO ONE ×2 (09:15→17:54)
[2017-05-18] MEDS ORDERED: Furosemide TAB* 20 MG ONE (18:06)
--- NOTE | 2017-05-18 18:43 | PN ---
Subjective Date of Service: 05/18/17 Interval History: Patient is still lethargic and weak today, hard to keep engaged in a conversation. Denies any acute complaints including SOB, N/V, F/C, abdominal pain or Diarrhea. Patient able to stand with PT and nursing staff, but unable to ambulate. Persistent weakness in LE and limited cooperation with testing. Family History: Unchanged from Admission Social History: Unchanged from Admission Past Medical History: Unchanged from Admission Objective Active Medications: Acetaminophen (Tylenol Tab*) 650 mg PO Q4H PRN PRN Reason: FEVER/PAIN Allopurinol (Zyloprim Tab*) 200 mg PO QAM [facility] Last Admin: 05/18/17 08:26 Dose: 200 mg Bisacodyl (Dulcolax Supp*) 10 mg [place] DAILY PRN PRN Reason: constipation Carbidopa/Levodopa (Sinemet 25/100 Tab(*)) 1.5 tab PO TID [facility] Last Admin: 05/18/17 16:39 Dose: 1.5 tab Dextrose (D50w Syringe 50 Ml*) 25 gm IV PUSH ONCE PRN PRN Reason: FS < 60 Last Admin: 05/16/17 20:37 Dose: 25 gm Diphenhydramine HCl (Benadryl Po*) 25 mg PO Q6H PRN PRN Reason: itching Divalproex Sodium (Depakote Dr Tab(*)) 1,500 mg PO BEDTIME [facility] Last Admin: 05/17/17 21:11 Dose: 1,500 mg Docusate Sodium (Colace Cap*) 100 mg PO BID [facility] Last Admin: 05/18/17 08:26 Dose: 100 mg Duloxetine HCl (Cymbalta Cap*) [facility] Last Admin: 05/18/17 08:26 Dose: 60 mg Enoxaparin Sodium (Lovenox(*)) 40 mg SUBCUT Q24H [facility] Last Admin: 05/18/17 08:27 Dose: 40 mg Magnesium Hydroxide (Milk Of Magnesia Liq*) 30 ml PO BID [facility] Last Admin: 05/18/17 08:26 Dose: 30 ml Metoprolol Tartrate (Lopressor Tab*) 125 mg PO QAM [facility] Last Admin: 05/18/17 08:27 Dose: 125 mg Multivitamins (Theragran Tab*) 1 tab PO DAILY [facility] Last Admin: 05/18/17 08:26 Dose: 1 tab Pto: Propafenone Er (425 Cap) 1 admin PO BID [facility] Last Admin: 05/18/17 08:27 Dose: 1 admin Ondansetron HCl (Zofran Inj*) 4 mg IV Q6H PRN PRN Reason: nausea Oxycodone HCl (Roxycodone Tab*) 10 mg PO Q4H PRN PRN Reason: PAIN - MODERATE TO SEVERE Oxycodone/Acetaminophen (Percocet 5/325 Tab*) 1 tab PO Q4H PRN PRN Reason: PAIN Last Admin: 05/18/17 18:08 Dose: 1 tab Oxycodone/Acetaminophen (Percocet 5/325 Tab*) 2 tab PO Q4H PRN PRN Reason: PAIN Last Admin: 05/16/17 09:11 Dose: 2 tab Polyethylene Glycol/Electrolytes (Miralax*) 17 gm PO DAILY PRN PRN Reason: Constipation Vital Signs 05/17/17 05/17/17 05/17/17 19:38 20:00 20:46 Temperature 97.7 F Pulse Rate 78 Respiratory 16 18 20 Rate Blood Pressure 117/43 (mmHg) O2 Sat by Pulse 98 Oximetry 05/17/17 05/17/17 05/17/17 21:11 22:27 23:57 Temperature 98.9 F Pulse Rate 79 Respiratory 18 18 16 Rate Blood Pressure 128/40 (mmHg) O2 Sat by Pulse 86 Oximetry 05/18/17 05/18/17 05/18/17 00:00 00:23 00:28 Temperature Pulse Rate Respiratory 20 20 Rate Blood Pressure (mmHg) O2 Sat by Pulse 92 Oximetry 05/18/17 05/18/17 05/18/17 00:31 03:07 03:12 Temperature Pulse Rate Respiratory 22 20 Rate Blood Pressure (mmHg) O2 Sat by Pulse 91 Oximetry 05/18/17 05/18/17 05/18/17 03:20 06:45 07:15 Temperature 98.8 F 97.6 F Pulse Rate 76 71 Respiratory 16 16 18 Rate Blood Pressure 113/40 105/42 (mmHg) O2 Sat by Pulse 98 97 Oximetry 05/18/17 05/18/17 05/18/17 07:27 07:37 08:28 Temperature Pulse Rate Respiratory 18 Rate Blood Pressure 114/54 (mmHg) O2 Sat by Pulse 97 Oximetry 05/18/17 05/18/17 05/18/17 11:20 11:30 13:16 Temperature 97.8 F Pulse Rate 65 Respiratory 18 18 Rate Blood Pressure 93/40 104/54 (mmHg) O2 Sat by Pulse 97 Oximetry 05/18/17 05/18/17 05/18/17 14:44 15:21 16:00 Temperature 98.6 F Pulse Rate 63 Respiratory 18 16 Rate Blood Pressure 108/40 (mmHg) O2 Sat by Pulse 96 96 Oximetry 05/18/17 18:08 Temperature Pulse Rate Respiratory 20 Rate Blood Pressure (mmHg) O2 Sat by Pulse Oximetry Oxygen Devices in Use Now: Nasal Cannula - 4L Appearance: Patient is a 77yo male who appears stated age and is sitting in the bed lethargically. Eyes: No Scleral Icterus, PERRLA Ears/Nose/Mouth/Throat: NL Teeth, Lips, Gums, Clear Oropharnyx, Mucous Membranes Moist Neck: NL Appearance and Movements; NL JVP, Trachea Midline Respiratory: Symmetrical Chest Expansion and Respiratory Effort, - - Slight crackles in B/L lung bases. Cardiovascular: NL Sounds; No Murmurs; No JVD, RRR, - - Swelling noted diffusely , not concentrated in legs. Pulses 2+ in B/L Radial, DP, PT areas. Abdominal: No Hepatosplenomegaly, - - BS present and normoactive in all 4 quadrants. No mass or tenderness. Distended. Lymphatic: No Cervical Adenopathy Extremities: No Clubbing, Cyanosis Skin: No Nodules or Sclerosis, - - CDI dressing over right hip wound. No signs of infection. No other rash. Neurological: Alert and Oriented x 3, - - CN II-XII intact. Diffuse weakness and poor participation with exam. Biceps, Quadriceps, Achilles reflexes 1+ B/L. Result Diagrams: 05/18/17 05:05 05/18/17 05:05 Microbiology and Other Data: Microbiology 05/16/17 18:30 Urine Culture - Final Urine No Growth (<1,000 CFU/mL) Assess/Plan/Problems-Billing Assessment: Patient is a 77yo male with a PMH significant for Parkinson's, HTN, HLD, Seizure disorder, and paroxysmal Atrial Fibrillation who is POD #1 from a R DORON. Patient has no pain, but has GLORIA with a FeNa of .1% and hyperkalemia. - Patient Problems (1) Post-operative state Current Visit: Yes Status: Acute Code(s): Z98.890 - OTHER SPECIFIED POSTPROCEDURAL STATES SNOMED Code(s): 28730453 Comment: Patient has increased pain at surgical incision whe pain medication decreased. Hyperkalemia resolved. Had large BM on 05/17, sarkar still in place for fluid monitoring and producing adequate concentrated urine. (2) GLORIA (acute kidney injury) Current Visit: Yes Status: Acute Code(s): N17.9 - ACUTE KIDNEY FAILURE, UNSPECIFIED SNOMED Code(s): 53121394 Comment: Patient has been low end of normotensive with H/H slowly decreasing with no evidence of continued bleeding. Responded to fluids, cret 1.13 which is near beasline. FeNa was .1% indicating prerenal etiology, may represent early ATN. Patient had UTI preoperatively. UA shows Blood, RBC, Leukocyte esterase and WBC. Patient was treated with Bactrim for UTI preoperatively. Culture negative, no other signs of UTI, will not give antibiotics at this time. (3) Hyperkalemia Current Visit: Yes Status: Acute Code(s): E87.5 - HYPERKALEMIA SNOMED Code (s): 60131616 Comment: Resolved, K+ now 4.6, will continue to monitor. (4) Parkinsons disease Current Visit: Yes Status: Acute Code(s): G20 - PARKINSON'S DISEASE SNOMED Code(s): 22550826 Comment: Signs of moderate Parkinson's, continue sinemet. Appreciate neurology input, likely not contributing greatly to weakness. (5) Paroxysmal A-fib Current Visit: Yes Status: Acute Code(s): I48.0 - PAROXYSMAL ATRIAL FIBRILLATION SNOMED Code(s): 483104555 Comment: Currently in NSR. Continue Metoprolol and Propafenone. Patient is normotensive, will continue to monitor. Will attempt to keep K+ above 4.0.. (6) Hypertension Current Visit: Yes Status: Acute Code(s): I10 - ESSENTIAL (PRIMARY) HYPERTENSION SNOMED Code(s): 50860026 Comment: Normotensive on metoprolol, continue to hold HCTZ, hold amlodipine, and hold timolol. Will resume when clinically indicated. (7) Weakness Current Visit: Yes Status: Acute Code(s): R53.1 - WEAKNESS SNOMED Code(s) : 33858436 Comment: Able to work with PT and stand today but not ambulate. Still significantly weak diffusely on exam. CT of the head shows no CVA. Hyperkalemia, hypomagnesemia corrected. Appreciate neurology input, not likely due to parkinson's. Most likely due to postoperative state, pain medication and poor oral intake. Will decrease pain medication, encourage high calorie intake and have nursing staff, PT and family work to get as active as possible. (8) Seizure disorder Current Visit: Yes Status: Acute Code(s): G40.909 - EPILEPSY, UNSP, NOT INTRACTABLE, WITHOUT STATUS EPILEPTICUS SNOMED Code(s): 589242725 Comment: Well controlled. Continue depakote, seizure precautions. Depakote level 51, ammonia 39. (9) MICHAEL (obstructive sleep apnea) Current Visit: Yes Status: Acute Code(s): G47.33 - OBSTRUCTIVE SLEEP APNEA ( ADULT) (PEDIATRIC) SNOMED Code(s): 35803015 Comment: Not Compliant with CPAP at home. Will do overnight pulse oximetry with oxygen on to see if this is contributing to daytime sedation. (10) Edema Current Visit: Yes Status: Acute Code(s): R60.9 - EDEMA, UNSPECIFIED SNOMED Code(s): 143901794 Comment: Generalized edema probably related to IV fluid and decreased urinary output. Treated with lasix 20mg POx3 to this point, will continue to gently diurese and monitor renal function. (11) Elevated C-reactive protein (CRP) Current Visit: Yes Status: Acute Code(s): R79.82 - ELEVATED C-REACTIVE PROTEIN (CRP) SNOMED Code(s): 972970859 Comment: Unknown etiology, WBC count decreasing, afebrile, urine culture negative, CXR shows no infiltrate. Surgical incision shows no signs of infection. Possibly due to surgery. Will actively monitor for signs of infection and treat if indicated. (12) DVT prophylaxis Current Visit: Yes Status: Acute Code(s): OQU3739 - SNOMED Code(s): 449822471 Comment: Heparin SubQ and then Pradaxa at Discharge. (13) Full code status Current Visit: Yes Status: Acute Code(s): Z78.9 - OTHER SPECIFIED HEALTH STATUS SNOMED Code(s): 556359006 Status and Disposition: Disposition per primary team. Plan for PMRU if able to participate.
[2017-05-18] MEDS: Divalproex DR TAB(*) 500 MG PO SCH (21:47)
--- NOTE | 2017-05-18 23:32 | CONS ---
CC: Dr. Jeimy Woodall * NEUROLOGY CONSULTATION: DATE OF CONSULTATION: 05/18/17 REFERRING PROVIDER: SARAH Ramirez LOCATION: He is an inpatient, 446. CHIEF COMPLAINT: Weakness, confusion, parkinsonism. HISTORY OF PRESENT ILLNESS: Lionel Dewitt is a 77-year-old man who underwent a right total hip replacement on 05/15/17. He follows with Dr. Jeimy Woodall for parkinsonism on Sinemet and a history of epilepsy, on Depakote. There was a question that he might have had a drug-induced parkinsonism from the Depakote, but it was planned to maintain it through the surgery and then possibly switch at followup. He is ambulatory with a wide-based gait according to Dr. Woodall's last note and has a bilateral upper extremity tremor. Postoperatively, he has been somewhat lethargic, confused, and generally weak. I was ask to see him in evaluation. PAST MEDICAL HISTORY: His past medical history is notable for parkinsonism, epilepsy, osteoarthritis, sleep apnea, atrial fibrillation, glaucoma, hypertension. MEDICATIONS: Medications at the time of admission included: 1. Depakote 1500 mg p.o. q.h.s. 2. Duloxetine 60 mg p.o. daily. 3. Sinemet 25/100 one and a half p.o. t.i.d. prior to meals. 4. Pradaxa 150 mg p.o. b.i.d. 5. Metoprolol 125 mg p.o. daily. 6. Hydrochlorothiazide 25 mg p.o. daily. 7. Amlodipine 10 mg p.o. daily. 8. Allopurinol 200 mg p.o. daily. 9. Propafenone ER 420 mg p.o. q.12 hours. 10. Potassium supplementation. ALLERGIES: He is said to be allergic to PENICILLIN. PHYSICAL EXAMINATION: He received IV morphine about 30 minutes before my evaluation and he is pretty lethargic. Vital Signs: Temperature 97.8 orally. Blood pressure 93/40 when last checked, 114/54 before that. Heart rates in the 60s and seems fairly regular. Lungs are clear anterolaterally. Neurologically, he is pretty lethargic, but wakes to answer some questions. He denies headache, but admits to feeling "lousy." He has hip pain and apparently some abdominal pain and has not been eating. Eye movements are full. Facial musculature reveals some mild hypomimia, which is symmetric. Speech is mildly dysarthric. 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 He has poor attention and concentration. He can wiggle both feet, but I did not test his proximal musculature. DIAGNOSTIC STUDIES/LABORATORY DATA: Laboratory data is reviewed and his hemoglobin most recently is 8.5, down from 15 on 04/28/17. His platelet counts are low at 129,000, down from 182 yesterday. White blood cell count is up to 12.9. Chemistry profile notable for BUN of 37, it was at a high of 43 yesterday. Creatinine is normal today at 1.13, it was up to 2.2 on 05/16/17. Calcium is low at 8.2, it was 7.9 on 05/16/17. Albumin is down to 2.4 from 3.8 preoperatively. Magnesium is 2.1 today after supplementation, it was 1.7 yesterday. The electrolytes are unremarkable. He had a preoperative valproic acid level on 04/30/[address] of the brain is reviewed and reveals atrophy, but I do not see any evidence of prior or acute infarctions. IMPRESSION AND PLAN: Impression is that of encephalopathy secondary to mild cognitive impairment at baseline, opioid use, azotemia which is corrected, and weakness which may have been in part from hyperkalemia and hypomagnesemia both of which have been corrected. He also may be becoming hypoxic in his sleep, has a history of sleep apnea. We recommend checking an ammonia level because of his chronic Depakote use, check another Depakote level, and also vitamin B12 level as MCV is elevated. Also, recommend an overnight oximetry study and initiation of CPAP if he is desaturating. Clearly it would be beneficial to minimize opioid analgesia as soon as possible in regards to his mentation. It would also be important to get calories into this gentleman as his albumin has dropped. I discussed my impression with Stepan Villasenor. [id number]/[facility] #: [id number] [facility]ER[facility] CHILDREN'S HOSPITALAlida
[2017-05-19] MEDS: oxyCODONE/Acetamin 5/325 MG* TAB PO PRN (03:50)
[2017-05-19 06:00] LABS: Hematocrit 24 % (42-52); Hemoglobin 8.2 g/dl (14.0-18.0); Mean Corpuscular HGB Conc 34 g/dl (31-36); Mean Corpuscular Hemoglobin 34 pg (27-31); Mean Corpuscular Volume 100 fL (80-94); Mean Platelet Volume 8 um3 (7.4-10.4); Red Blood Count 2.44 10^6/ul (4.0-5.4); Red Cell Distribution Width 14 % (10.5-15); White Blood Count 11.6 10^3/ul (3.5-10.8)
[2017-05-19 06:13] LABS: Albumin 2.3 g/dL (3.2-5.2); BUN/Creatinine Ratio 42.9 (8-20); EGFR African American 95.1 (>60); Globulin 2.5 g/dL (2-4); Magnesium 2.2 mg/dL (1.9-2.7); Potassium 4.7 mmol/L (3.5-5.0); Total Bilirubin 0.5 mg/dL (0.2-1.0); Total Protein 4.8 g/dL (6.4-8.9)
[2017-05-19] MEDS ORDERED: Furosemide IV* 10 MG/ML 2 ML VIAL (20 MG) IV ONE (09:01)
[2017-05-19] MEDS: Acetaminophen TAB* 325 MG PO PRN ×2 (09:02→14:00)
[2017-05-19] MEDS: Metoprolol Tartrate TAB* 50 mg PO SCH (09:03)
[2017-05-19] MEDS: Carbidopa/Levodop 25/100 MG TAB(*) PO SCH ×3 (09:11→17:17)
[2017-05-19] MEDS: DULoxetine DR CAP* 60 MG CAP.DR PO SCH (09:14)
[2017-05-19] MEDS: Enoxaparin(*) 40 MG/0.4 ML SYR SUBCUT SCH (09:16)
--- NOTE | 2017-05-19 09:38 | RAD ---
INDICATION: Hypoxia. COMPARISON: Comparison is made with a prior chest x-ray study from May 17, 2017. TECHNIQUE: A portable view of the chest was obtained. FINDINGS: Cardiac and mediastinal contours appear to be within normal limits. The lungs are underinflated and grossly clear. No pleural effusion is seen. IMPRESSION: NO EVIDENCE FOR ACUTE FINDING.
[2017-05-19 10:22] LABS: FIO2 4
[2017-05-19 10:27] LABS: PCO2 Arterial 53 mmHg (35-45)
--- NOTE | 2017-05-19 11:37 | PN ---
Progress Note - Progress Note Date of Service: 05/19/17 SOAP: Subjective: 77 y/o male s/p R DORON by DR. Avalos 05/15/2017. Patient continues to be lethargic , getting work up by hospitalist including PE/ DVT. Pt c/o b/l heel pain. Able to be roused, c/o decreased sleep overnight due to "night class". Daughter at bedside, concerned about post-op care at rehabilitation facility due to recent of family member at a SNF. Objective: General- reclined in chair, responsive to touch, questions, fatigued appearing. MSK- Incision C/D/I, no drainage noted, minimal ecchymosis around incision, thigh soft, no induration/ warmth. + calf tenderness b/l, however patient states tenderness with palpation in upper extremities as well. Vital Signs Temp 97.9 F 05/19/17 07:22 Pulse 66 05/19/17 07:22 Resp 16 05/19/17 07:22 BP 117/43 05/19/17 07:22 Pulse Ox 87 05/19/17 07:22 Intake & Output 05/18/17 05/19/17 05/19/17 18:59 06:59 18:59 Intake Total 470 100 500 Output Total 250 975 300 Balance 220 -875 200 Weight 224 lb 6.4 oz Intake: Oral 470 100 500 Output: Urine 0 400 Rubio 250 575 300 Other: Date of Last Bowel 05/19/17 Movement # Bowel Movements 1 Estimated Stool Amount Large Assessment: POD #4 s/p right DORON with Dr. Avalos. Plan: 1. PMRU consult placed 2. DVT/ PE workup 3. Continue lethargy - appreciate hospitalist input 4. Encourage OOB/ PT, increase activity 5. DVT prophylaxis lovenox 6. Acute renal failure - improved Active Medications Generic Name Dose Route Start Last Admin Trade Name Freq PRN Reason Stop Dose Admin Acetaminophen 650 mg 05/15/17 14:49 05/19/17 09:02 Tylenol Tab* PO 650 mg Q4H PRN Administration FEVER/PAIN Allopurinol 200 mg 05/16/17 09:00 05/19/17 12:44 Zyloprim Tab* PO 200 mg QAM PUSHPA Administration Bisacodyl 10 mg 05/15/17 14:49 Dulcolax Supp* [place] DAILY PRN constipation Carbidopa/Levodopa 1.5 tab 05/16/17 11:30 05/19/17 12:44 Sinemet 25/100 Tab(*) PO 1.5 tab TID AC PUSHPA Administration Dextrose 25 gm 05/16/17 18:50 05/16/17 20:37 D50w Syringe 50 Ml* IV PUSH 25 gm ONCE PRN Administration FS < 60 Diphenhydramine HCl 25 mg 05/16/17 06:00 Benadryl Po* PO Q6H PRN itching Divalproex Sodium 1,500 mg 05/15/17 21:00 05/18/17 21:[address] Tab(*) PO 1,500 mg BEDTIME PUSHPA Administration Docusate Sodium 100 mg 05/15/17 21:00 05/19/17 12:43 Colace Cap* PO 100 mg BID PUSHPA Administration Duloxetine HCl 60 mg 05/16/17 09:00 05/19/17 09:14 Cymbalta Cap* PO 60 mg QAM PUSHPA Administration Enoxaparin Sodium 40 mg 05/16/17 09:00 05/19/17 09:16 Lovenox(*) SUBCUT 40 mg Q24H PUSHPA Administration Magnesium Hydroxide 30 ml 05/15/17 21:00 05/19/17 12:56 Milk Of Magnesia Liq* PO Not Given BID PUSHPA Metoprolol Tartrate 125 mg 05/16/17 09:00 05/19/17 09:03 Lopressor Tab* PO 125 mg QAM PUSHPA Administration Multivitamins 1 tab 05/16/17 09:00 05/19/17 12:43 Theragran Tab* PO 1 tab DAILY PUSHPA Administration Pto: Propafenone Er 1 admin 05/16/17 09:00 05/19/17 12:46 425 Cap PO 1 admin BID PUSHPA Administration Ondansetron HCl 4 mg 05/16/17 06:00 Zofran Inj* IV Q6H PRN nausea Oxycodone HCl 10 mg 05/16/17 06:00 Roxycodone Tab* PO Q4H PRN PAIN - MODERATE TO SEVERE Oxycodone/Acetaminophen 1 tab 05/16/17 06:00 05/19/17 03:50 Percocet 5/325 Tab* PO 1 tab Q4H PRN Administration PAIN Oxycodone/Acetaminophen 2 tab 05/16/17 06:00 05/16/17 09:11 Percocet 5/325 Tab* PO 2 tab Q4H PRN Administration PAIN Polyethylene Glycol/Electrolytes 17 gm 05/15/17 14:49 Miralax* PO DAILY PRN Constipation Laboratory Results - last 24 hr 05/18/17 05/18/17 05/19/17 16:39 16:39 05:52 WBC 11.6 H RBC 2.44 L Hgb 8.2 L Hct 24 L MCV 100 H MCH 34 H MCHC 34 RDW 14 Plt Count 128 L MPV 8 Neut % (Auto) 76.9 Lymph % (Auto) 10.6 L Lawrence % (Auto) 10.6 H Eos % (Auto) 1.3 Baso % (Auto) 0.6 Absolute Neuts (auto) 8.9 H Absolute Lymphs (auto) 1.2 Absolute Monos (auto) 1.2 H Absolute Eos (auto) 0.2 Absolute Basos (auto) 0.1 Absolute Nucleated RBC 0.01 Nucleated RBC % 0 Patient Temperature ABG pH ABG pH (Temp Correct) ABG pCO2 ABG pCO2 (Temp Corrct ABG pO2 ABG pO2 (Temp Correct ABG HCO3 ABG O2 Saturation ABG Base Excess Respiration Rate O2 Delivery Device Ventilator Type Vent Mode FiO2 Inspiratory Time PEEP Pressure Support Pressure Control EPAP IPAP BiPAP Sodium Potassium Chloride Carbon Dioxide Anion Gap BUN Creatinine Est GFR ( Amer) Est GFR (Non-Af Amer) BUN/Creatinine Ratio Glucose Calcium Magnesium Total Bilirubin AST ALT Alkaline Phosphatase Ammonia 39 Total Protein Albumin Globulin Albumin/Globulin Ratio Prealbumin Vitamin B12 542 Valproic Acid 51.0 05/19/17 05/19/17 05:52 10:15 WBC RBC Hgb Hct MCV MCH MCHC RDW Plt Count MPV Neut % (Auto) Lymph % (Auto) Lawrence % (Auto) Eos % (Auto) Baso % (Auto) Absolute Neuts (auto) Absolute Lymphs (auto) Absolute Monos (auto) Absolute Eos (auto) Absolute Basos (auto) Absolute Nucleated RBC Nucleated RBC % Patient Temperature Not Reportable ABG pH 7.43 ABG pH (Temp Correct) Not Reportable ABG pCO2 53 H ABG pCO2 (Temp Corrct Not Reportable ABG pO2 81 ABG pO2 (Temp Correct Not Reportable ABG HCO3 32.4 H ABG O2 Saturation 97.3 ABG Base Excess 9.6 H Respiration Rate Not Reportable O2 Delivery Device nasal cannula Ventilator Type Not Reportable Vent Mode Not Reportable FiO2 4 Inspiratory Time Not Reportable PEEP Not Reportable Pressure Support Not Reportable Pressure Control Not Reportable EPAP Not Reportable IPAP Not Reportable BiPAP Not Reportable Sodium 136 Potassium 4.7 Chloride 101 Carbon Dioxide 33 H Anion Gap 2 BUN 42 H Creatinine 0.98 Est GFR ( Amer) 95.1 Est GFR (Non-Af Amer) 74.0 BUN/Creatinine Ratio 42.9 H Glucose 101 H Calcium 8.0 L Magnesium 2.2 Total Bilirubin 0.50 AST 24 ALT 7 Alkaline Phosphatase 157 H Ammonia Total Protein 4.8 L Albumin 2.3 L Globulin 2.5 Albumin/Globulin Ratio 0.9 L Prealbumin 7 L Vitamin B12 Valproic Acid
[2017-05-19] MEDS: Docusate CAP* 100 MG PO SCH ×2 (12:43→22:27)
[2017-05-19] MEDS: Vitamin THERAPEUTIC TAB PO SCH (12:43)
[2017-05-19] MEDS: Allopurinol TAB* 100 MG PO SCH (12:44)
[2017-05-19] MEDS: PROPAFENONE PO SCH ×2 (12:46→22:30)
--- NOTE | 2017-05-19 12:54 | PN ---
Subjective Date of Service: 05/19/17 Interval History: Patient very sedated and uncooperative when examined around 0800. O2 found to be down to 73% when cannula taken off. ABG ordered which showed slight hypercapnea. Complains of pain in B/L heels. No other complaints of pain. Palpable cord in right calf without tenderness. Patient has persistent anasarca which is symmetric in LE. US of LE pending to assess for Blood Clots. Patient's most recent narcotic pain medication at 0300. Incentive spirometer and importance of oral intake discussed with family. Patient gotten up to chair and stimulated by conversation with family and is much more alert when examined at 1230. Family History: Unchanged from Admission Social History: Unchanged from Admission Past Medical History: Unchanged from Admission Objective Active Medications: Acetaminophen (Tylenol Tab*) 650 mg PO Q4H PRN PRN Reason: FEVER/PAIN Last Admin: 05/19/17 09:02 Dose: 650 mg Allopurinol (Zyloprim Tab*) 200 mg PO QAM [facility] Last Admin: 05/18/17 08:26 Dose: 200 mg Bisacodyl (Dulcolax Supp*) 10 mg [place] DAILY PRN PRN Reason: constipation Carbidopa/Levodopa (Sinemet 25/100 Tab(*)) 1.5 tab PO TID AC [facility] Last Admin: 05/19/17 09:11 Dose: 1.5 tab Dextrose (D50w Syringe 50 Ml*) 25 gm IV PUSH ONCE PRN PRN Reason: FS < 60 Last Admin: 05/16/17 20:37 Dose: 25 gm Diphenhydramine HCl (Benadryl Po*) 25 mg PO Q6H PRN PRN Reason: itching Divalproex Sodium (Depakote Dr Tab(*)) 1,500 mg PO BEDTIME [facility] Last Admin: 05/18/17 21:47 Dose: 1,500 mg Docusate Sodium (Colace Cap*) 100 mg PO BID [facility] Last Admin: 05/18/17 21:47 Dose: 100 mg Duloxetine HCl (Cymbalta Cap*) 60 mg PO QAM [facility] Last Admin: 05/19/17 09:14 Dose: 60 mg Enoxaparin Sodium (Lovenox(*)) 40 mg SUBCUT Q24H [facility] Last Admin: 05/19/17 09:16 Dose: 40 mg Magnesium Hydroxide (Milk Of Magnesia Liq*) 30 ml PO BID [facility] Last Admin: 05/18/17 21:46 Dose: 30 ml Metoprolol Tartrate (Lopressor Tab*) 125 mg PO QAM [facility] Last Admin: 05/19/17 09:03 Dose: 125 mg Multivitamins (Theragran Tab*) 1 tab PO DAILY [facility] Last Admin: 05/18/17 08:26 Dose: 1 tab Pto: Propafenone Er (425 Cap) 1 admin PO BID [facility] Last Admin: 05/18/17 21:47 Dose: 1 admin Ondansetron HCl (Zofran Inj*) 4 mg IV Q6H PRN PRN Reason: nausea Oxycodone HCl (Roxycodone Tab*) 10 mg PO Q4H PRN PRN Reason: PAIN - MODERATE TO SEVERE Oxycodone/Acetaminophen (Percocet 5/325 Tab*) 1 tab PO Q4H PRN PRN Reason: PAIN Last Admin: 05/19/17 03:50 Dose: 1 tab Oxycodone/Acetaminophen (Percocet 5/325 Tab*) 2 tab PO Q4H PRN PRN Reason: PAIN Last Admin: 05/16/17 09:11 Dose: 2 tab Polyethylene Glycol/Electrolytes (Miralax*) 17 gm PO DAILY PRN PRN Reason: Constipation Vital Signs 05/18/17 05/18/17 05/18/17 13:16 14:44 15:21 Temperature 98.6 F Pulse Rate 63 Respiratory 18 18 16 Rate Blood Pressure 108/40 (mmHg) O2 Sat by Pulse 96 Oximetry 05/18/17 05/18/17 05/18/17 16:00 18:08 19:09 Temperature 97.8 F Pulse Rate 65 Respiratory 20 16 Rate Blood Pressure 113/37 (mmHg) O2 Sat by Pulse 96 98 Oximetry 05/18/17 05/18/17 05/18/17 19:51 20:00 21:24 Temperature Pulse Rate Respiratory 18 Rate Blood Pressure 114/48 (mmHg) O2 Sat by Pulse 93 Oximetry 05/18/17 05/18/17 05/19/17 23:28 23:48 00:00 Temperature 97.2 F Pulse Rate 66 Respiratory 18 20 Rate Blood Pressure 112/39 (mmHg) O2 Sat by Pulse 95 95 Oximetry 05/19/17 05/19/1705/19/17 03:11 03:50 07:20 Temperature Pulse Rate 66 Respiratory 20 18 16 Rate Blood Pressure 117/41 (mmHg) O2 Sat by Pulse 96 Oximetry 05/19/17 07:22 Temperature 97.9 F Pulse Rate 66 Respiratory 16 Rate Blood Pressure 117/43 (mmHg) O2 Sat by Pulse 87 Oximetry Oxygen Devices in Use Now: Nasal Cannula - 4L Appearance: Patient is a 77yo male who appears stated age and is sitting in the bed lethargically. Eyes: No Scleral Icterus, PERRLA Ears/Nose/Mouth/Throat: NL Teeth, Lips, Gums, Clear Oropharnyx, Mucous Membranes Moist Neck: NL Appearance and Movements; NL JVP, Trachea Midline Respiratory: Symmetrical Chest Expansion and Respiratory Effort, - - Slight crackles in Lower lobes, Stable from previous exam. Cardiovascular: NL Sounds; No Murmurs; No JVD, RRR, - - mild anasarca. Abdominal: NL Sounds; No Tenderness; No Distention, No Hepatosplenomegaly Lymphatic: No Cervical Adenopathy Extremities: No Clubbing, Cyanosis Skin: - - Surgical incision CDI without signs of infection. Neurological: Alert and Oriented x 3, - - CNII-XII intact. Generalized weakness present but somewhat improved since last exam. Result Diagrams: 05/19/17 05:52 05/19/17 05:52 Microbiology and Other Data: Microbiology 05/16/17 18:30 Urine Culture - Final Urine No Growth (<1,000 CFU/mL) Assess/Plan/Problems-Billing Assessment: Patient is a 77yo male with a PMH significant for Parkinson's, HTN, HLD, Seizure disorder, and paroxysmal Atrial Fibrillation who is POD #4 from a RTHA. Patient had GLORIA, Hyperkalemia which are now resolved. Patient has continued to be lethargic and weak, improving with decrease in pain medication and stimulation. - Patient Problems (1) Post-operative state Current Visit: Yes Status: Acute Code(s): Z98.890 - OTHER SPECIFIED POSTPROCEDURAL STATES SNOMED Code(s): 62854916 Comment: No pain at surgical site, only pain in B/L heels. Hyperkalemia resolved. Had large BM on 05/17 and 05/18, sarkar still in place for fluid monitoring and producing adequate concentrated urine. (2) GLORIA (acute kidney injury) Current Visit: Yes Status: Acute Code(s): N17.9 - ACUTE KIDNEY FAILURE, UNSPECIFIED SNOMED Code(s): 75747556 Comment: Patient normotensive with H/H slowly decreasing with no evidence of continued bleeding. Responded to fluids, cret at baseline. FeNa was .1% indicating prerenal etiology. Patient had UTI preoperatively. UA shows Blood, RBC, Leukocyte esterase and WBC. Patient was treated with Bactrim for UTI preoperatively. Culture negative, no other signs of UTI, will not give antibiotics at this time. (3) Hyperkalemia Current Visit: Yes Status: Acute Code(s): E87.5 - HYPERKALEMIA SNOMED Code (s): 49606239 Comment: Resolved, K+ now 4.7, will continue to monitor. (4) Parkinsons disease Current Visit: Yes Status: Acute Code(s): G20 - PARKINSON'S DISEASE SNOMED Code(s): 92141365 Comment: Signs of moderate Parkinson's, continue sinemet. Appreciate neurology input, likely not contributing greatly to weakness. (5) Paroxysmal A-fib Current Visit: Yes Status: Acute Code(s): I48.0 - PAROXYSMAL ATRIAL FIBRILLATION SNOMED Code(s): 402072888 Comment: Currently in NSR. Continue Metoprolol and Propafenone. Patient is normotensive, will continue to monitor. Will attempt to keep K+ above 4.0.. (6) Hypertension Current Visit: Yes Status: Acute Code(s): I10 - ESSENTIAL (PRIMARY) HYPERTENSION SNOMED Code(s): 14990996 Comment: Normotensive on metoprolol, continue to hold HCTZ, hold amlodipine, and hold timolol. Will resume when clinically indicated. (7) Weakness Current Visit: Yes Status: Acute Code(s): R53.1 - WEAKNESS SNOMED Code(s) : 14977988 Comment: Able to work with PT and stand today but not ambulate. Still significantly weak diffusely on exam. CT of the head shows no CVA. Hyperkalemia, hypomagnesemia corrected. Appreciate neurology input, not likely due to parkinson's. Most likely due to postoperative state, pain medication and poor oral intake. Will decrease pain medication, encourage high calorie intake and have nursing staff, PT and family work to get as active as possible. (8) Seizure disorder Current Visit: Yes Status: Acute Code(s): G40.909 - EPILEPSY, UNSP, NOT INTRACTABLE, WITHOUT STATUS EPILEPTICUS SNOMED Code(s): 490599732 Comment: Well controlled. Continue depakote, seizure precautions. Depakote level 51, ammonia 39. (9) MICHAEL (obstructive sleep apnea) Current Visit: Yes Status: Acute Code(s): G47.33 - OBSTRUCTIVE SLEEP APNEA ( ADULT) (PEDIATRIC) SNOMED Code(s): 72111527 Comment: Not Compliant with CPAP at home. Will do overnight pulse oximetry with oxygen on to see if this is contributing to daytime sedation. (10) Edema Current Visit: Yes Status: Acute Code(s): R60.9 - EDEMA, UNSPECIFIED SNOMED Code(s): 341996302 Comment: Generalized edema probably related to IV fluid and decreased urinary output. Treated with lasix 20mg POx3 and Lasix IV 20mg to this point, will continue to gently diurese and monitor renal function. (11) Elevated C-reactive protein (CRP) Current Visit: Yes Status: Acute Code(s): R79.82 - ELEVATED C-REACTIVE PROTEIN (CRP) SNOMED Code(s): 399462098 Comment: Unknown etiology, WBC count decreasing, afebrile, urine culture negative, CXR shows no infiltrate. Surgical incision shows no signs of infection. Possibly due to surgery. Will actively monitor for signs of infection and treat if indicated. (12) Anemia Current Visit: Yes Status: Acute Code(s): D64.9 - ANEMIA, UNSPECIFIED SNOMED Code(s): 432033508 Comment: Slow decrease in H/H at 8.5 down from 15.1 preoperatively. Likely represents intraoperative blood loss and dilutional change. No signs of current bleeding. B12 normal. (13) Hypoalbuminemia Current Visit: Yes Status: Acute Code(s): E88.09 - OTH DISORDERS OF PLASMA- PROTEIN METABOLISM, NEC SNOMED Code(s): 669822258 Comment: Likely represents acute malnutrition, prealbumin 7. Will encourage high calorie foods and monitor. 1+ protein in urine, despite anascarca, not likely representing protein wasting nephropathy. (14) Hypoxia Current Visit: Yes Status: Acute Code(s): R09.02 - HYPOXEMIA SNOMED Code(s ): 891644235 Comment: Patient continues to need 4L O2. CXR shows low lung volumes without infiltrate. B/L pleural effusions. Does not wear O2 at home. Possibly due to atelectasis. US LE to assess for blood clots. PE on differential due to post operative state. Will continue to diurese. (15) Full code status Current Visit: Yes Status: Acute Code(s): Z78.9 - OTHER SPECIFIED HEALTH STATUS SNOMED Code(s): 362603619 (16) DVT prophylaxis Current Visit: Yes Status: Acute Code(s): HVV5511 - SNOMED Code(s): 038870837 Comment: Heparin SubQ and then Pradaxa at Discharge. Status and Disposition: Disposition per primary team. Plan for PMRU if able to participate. YFN/Home being discussed.
[2017-05-19] MEDS: Magnesium Hydroxide LIQ* 30 ML UDC PO SCH ×2 (12:56→22:30)
--- NOTE | 2017-05-19 15:03 | RAD ---
HISTORY: Right greater than left lower extremity swelling and pain. The patient is status post right hip replacement 4 days earlier. TECHNIQUE: Multiple transverse and longitudinal ultrasound images were obtained of the veins of the bilateral lower extremities using grayscale, color Doppler, and spectral Doppler imaging with and without compression and with augmentation. FINDINGS: VEINS: The common femoral vein, deep femoral vein, femoral vein and popliteal vein are compressible throughout their course, with normal flow on color Doppler imaging and normal response to augmentation on spectral Doppler imaging. Bilaterally the peroneal veins exhibited appropriate augmentation but the Doppler flow is incomplete. SOFT TISSUES: Evidence of subcutaneous edema is seen overlying the bilateral legs, more severely affecting the right lower leg and the left. IMPRESSION: 1. No sonographic evidence of femoral-popliteal deep vein thrombosis. 2. There is questionable nonocclusive thrombus involving the peroneal veins, more severely affecting the right than the left. 3. Subcutaneous edema is evident overlying the right worse than left lower legs.
[2017-05-19] MEDS ORDERED: Iohexol 350* (CONTRAST) 500 ML MDV IV ONE (20:01)
--- NOTE | 2017-05-19 21:47 | RAD ---
INDICATION: RIGHT hip pain. Clinical concern for potential PE. COMPARISON: May 19, 2017 chest radiograph and March 22, 2004 CT. TECHNIQUE: Multidetector CT images were obtained from the lung apices to the upper abdomen with 85 mL Omnipaque 350 IV contrast. Pulmonary angiogram protocol. Multiplanar reformation including with maximum intensity projection. REPORT: Motion artifact degrades image quality. Calcified pleural plaques. Minimal bilateral dependent pleural effusions and mild dependent atelectasis. Negative for pneumothorax. 1.6 cm short axis diameter RIGHT infrahilar lymph node new compared with the 2004 exam. No additional enlarged thoracic lymph nodes evident. Upper normal heart size. Negative for pericardial effusion. Normal diameter thoracic aorta with mild atherosclerotic plaque. Negative for aortic dissection. Motion artifact limits sensitivity of the CT pulmonary angiogram. No compelling filling defects are identified at the mean through segmental and where visualized subsegmental pulmonary arteries to indicate pulmonary embolus. Images through the upper abdomen are remarkable for a 1.2 cm diameter splenic artery aneurysm without change compared with the 2004 exam. Multilevel segmental ossification of the anterior longitudinal ligament of the thoracic spine consistent with Diffuse Idiopathic Skeletal Hyperostosis (DISH). Negative for suspicious focal osseous lesions or fractures. IMPRESSION: 1. Calcified pleural plaques. 2. Minimal bilateral dependent pleural effusions and dependent atelectasis. 3. 1.6 cm short axis enlarged RIGHT infrahilar lymph node. 4. Limited CT pulmonary angiogram due to motion artifact without compelling evidence for pulmonary embolism.
[2017-05-19] MEDS: Divalproex DR TAB(*) 500 MG PO SCH (22:26)
[2017-05-20] MEDS: oxyCODONE/Acetamin 5/325 MG* TAB PO PRN (01:53)
[2017-05-20 06:18] LABS: Hematocrit 25 % (42-52); Hemoglobin 8.2 g/dl (14.0-18.0); Mean Corpuscular HGB Conc 34 g/dl (31-36); Mean Corpuscular Hemoglobin 33 pg (27-31); Mean Corpuscular Volume 99 fL (80-94); Mean Platelet Volume 8 um3 (7.4-10.4); Red Blood Count 2.47 10^6/ul (4.0-5.4); Red Cell Distribution Width 14 % (10.5-15); White Blood Count 10.5 10^3/ul (3.5-10.8)
[2017-05-20 06:35] LABS: Albumin 2.4 g/dL (3.2-5.2); BUN/Creatinine Ratio 46.2 (8-20); Calcium 8.3 mg/dL (8.6-10.3); EGFR African American 103.6 (>60); EGFR Non-African American 80.6 (>60); Globulin 2.5 g/dL (2-4); Magnesium 2.1 mg/dL (1.9-2.7); Potassium 4.4 mmol/L (3.5-5.0); Total Bilirubin 0.5 mg/dL (0.2-1.0); Total Protein 4.9 g/dL (6.4-8.9)
--- NOTE | 2017-05-20 07:49 | PN ---
Progress Note - Progress Note Date of Service: 05/20/17 SOAP: Subjective: Pt. is sleeping in bed, does wake up to my voice and follows commands. Objective: RLE - dressing c/d/i, distally nvi, distal edema improved. thigh swelling improved. Vital Signs: Temp Pulse Resp BP Pulse Ox 97.9 F 63 16 110/41 98 05/20/17 03:38 05/20/17 03:38 05/20/17 05:04 05/20/17 03:38 05/20/17 03:38 Laboratory Results - last 24 hr 05/19/17 05/20/17 05/20/17 10:15 05:51 05:51 WBC 10.5 RBC 2.47 L Hgb 8.2 L Hct 25 L MCV 99 H MCH 33 H MCHC 34 RDW 14 Plt Count 151 MPV 8 Neut % (Auto) 72.3 Lymph % (Auto) 14.2 L [place] % (Auto) 11.4 H Eos % (Auto) 1.8 Baso % (Auto) 0.3 Absolute Neuts (auto) 7.6 Absolute Lymphs (auto) 1.5 Absolute Monos (auto) 1.2 H Absolute Eos (auto) 0.2 Absolute Basos (auto) 0 Absolute Nucleated RBC 0.01 Nucleated RBC % 0.1 Patient Temperature Not Reportable ABG pH 7.43 ABG pH (Temp Correct) Not Reportable ABG pCO2 53 H ABG pCO2 (Temp Corrct Not Reportable ABG pO2 81 ABG pO2 (Temp Correct Not Reportable ABG HCO3 32.4 H ABG O2 Saturation 97.3 ABG Base Excess 9.6 H Respiration Rate Not Reportable O2 Delivery Device nasal cannula Ventilator Type Not Reportable Vent Mode Not Reportable FiO2 4 Inspiratory Time Not Reportable PEEP Not Reportable Pressure Support Not Reportable Pressure Control Not Reportable EPAP Not Reportable IPAP Not Reportable BiPAP Not Reportable Sodium 136 Potassium 4.4 Chloride 99 L Carbon Dioxide 35 H Anion Gap 2 BUN 42 H Creatinine 0.91 Est GFR ( Amer) 103.6 Est GFR (Non-Af Amer) 80.6 BUN/Creatinine Ratio 46.2 H Glucose 108 H Calcium 8.3 L Magnesium 2.1 Total Bilirubin 0.50 AST 23 ALT 14 Alkaline Phosphatase 206 H Total Creatine Kinase 54 Total Protein 4.9 L Albumin 2.4 L Globulin 2.5 Albumin/Globulin Ratio 1.0 Assessment: 77 yo M pod 5 s/p RTHA Plan: possible popliteal dvt - CT chest negative appreciate hospitalist and neuro consults oobtc for meals ambulate as tolerated - cont PT/OT MUST HAVE HEEL PROTECTION ON WHEN IN BED QSHIFT POSITION CHANGES
[2017-05-20] MEDS: Carbidopa/Levodop 25/100 MG TAB(*) PO SCH ×3 (08:19→16:37)
[2017-05-20] MEDS: Allopurinol TAB* 100 MG PO SCH (08:20)
[2017-05-20] MEDS: Metoprolol Tartrate TAB* 50 mg PO SCH (08:20)
[2017-05-20] MEDS: DULoxetine DR CAP* 60 MG CAP.DR PO SCH (08:20)
[2017-05-20] MEDS: Vitamin THERAPEUTIC TAB PO SCH (08:20)
[2017-05-20] MEDS: PROPAFENONE PO SCH ×2 (08:20→20:28)
[2017-05-20] MEDS: Magnesium Hydroxide LIQ* 30 ML UDC PO SCH ×3 (08:20→20:30)
[2017-05-20] MEDS: Docusate CAP* 100 MG PO SCH ×2 (08:20→20:27)
[2017-05-20] MEDS ORDERED: Dabigatran CAP(NF) 150 MG CAP PO SCH (09:00)
[2017-05-20] MEDS: CMC:Dabigatran CAP(NF) 150 MG CAP PO SCH ×2 (10:20→20:27)
--- NOTE | 2017-05-20 13:54 | PN ---
Subjective Date of Service: 05/20/17 Interval History: Patient has no acute complaints. Patient denies CP, SOB, N/V, F/C, Abdominal Pain, Diarrhea, or constipation. Patient continues to put out poor effort with PT/OT but is more alert in general. Discussed YFN placement with family and care management and they are amenable. Patient found to have possible B/L DVT on doppler and CTA was negative. Family History: Unchanged from Admission Social History: Unchanged from Admission Past Medical History: Unchanged from Admission Objective Active Medications: Acetaminophen (Tylenol Tab*) 650 mg PO Q4H PRN PRN Reason: FEVER/PAIN Last Admin: 05/19/17 14:00 Dose: 650 mg Allopurinol (Zyloprim Tab*) 200 mg PO QAM [facility] Last Admin: 05/20/17 08:20 Dose: 200 mg Bisacodyl (Dulcolax Supp*) 10 mg NC DAILY PRN PRN Reason: constipation Carbidopa/Levodopa (Sinemet 25/100 Tab(*)) 1.5 tab PO TID AC [facility] Last Admin: 05/20/17 12:05 Dose: 1.5 tab Dabigatran (Pradaxa Cap(Nf)) 150 mg PO BID [facility] Last Admin: 05/20/17 10:20 Dose: 150 mg Dextrose (D50w Syringe 50 Ml*) 25 gm IV PUSH ONCE PRN PRN Reason: FS < 60 Last Admin: 05/16/17 20:37 Dose: 25 gm Diphenhydramine HCl (Benadryl Po*) 25 mg PO Q6H PRN PRN Reason: itching Divalproex Sodium (Depakote Dr Tab(*)) 1,500 mg PO BEDTIME [facility] Last Admin: 05/19/17 22:26 Dose: 1,500 mg Docusate Sodium (Colace Cap*) 100 mg PO BID [facility] Last Admin: 05/20/17 08:20 Dose: 100 mg Duloxetine HCl (Cymbalta Cap*) 60 mg PO QAM [facility] Last Admin: 05/20/17 08:20 Dose: 60 mg Magnesium Hydroxide (Milk Of Magnesia Liq*) 30 ml PO BID [facility] Last Admin: 05/20/17 08:20 Dose: 30 ml Metoprolol Tartrate (Lopressor Tab*) 125 mg PO QAM [facility] Last Admin: 05/20/17 08:20 Dose: 125 mg Multivitamins (Theragran Tab*) 1 tab PO DAILY [facility] Last Admin: 05/20/17 08:20 Dose: 1 tab Pto: Propafenone Er (425 Cap) 1 admin PO BID [facility] Last Admin: 05/20/17 08:20 Dose: 1 admin Ondansetron HCl (Zofran Inj*) 4 mg IV Q6H PRN PRN Reason: nausea Oxycodone HCl (Roxycodone Tab*) 10 mg PO Q4H PRN PRN Reason: PAIN - MODERATE TO SEVERE Oxycodone/Acetaminophen (Percocet 5/325 Tab*) 1 tab PO Q4H PRN PRN Reason: PAIN Last Admin: 05/19/17 03:50 Dose: 1 tab Oxycodone/Acetaminophen (Percocet 5/325 Tab*) 2 tab PO Q4H PRN PRN Reason: PAIN Last Admin: 05/20/17 01:53 Dose: 2 tab Polyethylene Glycol/Electrolytes (Miralax*) 17 gm PO DAILY PRN PRN Reason: Constipation Vital Signs 05/19/17 05/19/17 05/19/17 15:13 16:00 19:37 Temperature 97.4 F 99.1 F Pulse Rate 63 66 Respiratory 16 16 Rate Blood Pressure 109/42 120/41 (mmHg) O2 Sat by Pulse 100 100 98 Oximetry 05/19/17 05/19/17 05/20/17 20:00 23:40 00:00 Temperature 98.8 F Pulse Rate 69 Respiratory 16 20 Rate Blood Pressure 131/48 (mmHg) O2 Sat by Pulse 99 99 Oximetry 05/20/17 05/20/17 05/20/17 01:53 03:38 05:04 Temperature 97.9 F Pulse Rate 63 Respiratory 16 14 16 Rate Blood Pressure 110/41 (mmHg) O2 Sat by Pulse 98 Oximetry 05/20/17 05/20/17 05/20/17 07:48 08:00 12:10 Temperature 98.3 F 97.2 F Pulse Rate 66 61 Respiratory 20 18 18 Rate Blood Pressure 121/43 114/43 (mmHg) O2 Sat by Pulse 96 96 100 Oximetry Oxygen Devices in Use Now: Nasal Cannula Appearance: Patient is a 77yo male who appears stated age and is sitting in the bed in [facility]. Eyes: No Scleral Icterus, PERRLA Ears/Nose/Mouth/Throat: NL Teeth, Lips, Gums, Clear Oropharnyx, Mucous Membranes Moist Neck: NL Appearance and Movements; NL JVP, Trachea Midline Respiratory: Symmetrical Chest Expansion and Respiratory Effort, - - Slight inspiratory crackles in lower lobes. Improved from previous exam. Cardiovascular: NL Sounds; No Murmurs; No JVD, RRR, - - Decreased widespread edema. Abdominal: NL Sounds; No Tenderness; No Distention, No Hepatosplenomegaly Lymphatic: No Cervical Adenopathy Extremities: No Edema, No Clubbing, Cyanosis, - - Surgical incision CDI without sign of infection. Skin: No Rash or Ulcers, No Nodules or Sclerosis, - Neurological: Alert and Oriented x 3, - - Widespread weakness, but poor effort with testing. Result Diagrams: 05/20/17 05:51 05/20/17 05:51 Microbiology and Other Data: Microbiology 05/16/17 18:30 Urine Culture - Final Urine No Growth (<1,000 CFU/mL) Assess/Plan/Problems-Billing Assessment: Patient is a 77yo male with a PMH significant for Parkinson's, HTN, HLD, Seizure disorder, and paroxysmal Atrial Fibrillation who is POD #4 from a RTHA. Patient had GLORIA, Hyperkalemia which are now resolved. Patient has continued to be lethargic and weak, improving with decrease in pain medication and stimulation. - Patient Problems (1) Post-operative state Current Visit: Yes Status: Acute Code(s): Z98.890 - OTHER SPECIFIED POSTPROCEDURAL STATES SNOMED Code(s): 64205293 Comment: No pain at surgical site, only pain in B/L heels. Hyperkalemia resolved. Had large BM on 05/17 and 05/18, sarkar still in place for fluid monitoring and producing adequate more dilute urine. (2) GLORIA (acute kidney injury) Current Visit: Yes Status: Acute Code(s): N17.9 - ACUTE KIDNEY FAILURE, UNSPECIFIED SNOMED Code(s): 79755602 Comment: Patient normotensive with H/H slowly decreasing with no evidence of continued bleeding. Responded to fluids, cret at baseline. FeNa was .1% indicating prerenal etiology. Patient had UTI preoperatively. UA shows Blood, RBC, Leukocyte esterase and WBC. Patient was treated with Bactrim for UTI preoperatively. Culture negative, no other signs of UTI, will not give antibiotics at this time. (3) Hyperkalemia Current Visit: Yes Status: Acute Code(s): E87.5 - HYPERKALEMIA SNOMED Code (s): 22276595 Comment: Resolved, K+ now 4.4, will continue to monitor. (4) Parkinsons disease Current Visit: Yes Status: Acute Code(s): G20 - PARKINSON'S DISEASE SNOMED Code(s): 32568347 Comment: Signs of moderate Parkinson's, continue sinemet. Appreciate neurology input, likely not contributing greatly to weakness. (5) Paroxysmal A-fib Current Visit: Yes Status: Acute Code(s): I48.0 - PAROXYSMAL ATRIAL FIBRILLATION SNOMED Code(s): 535315844 Comment: Currently in NSR. Continue Metoprolol and Propafenone. Patient is normotensive, will continue to monitor. Will attempt to keep K+ above 4.0.. (6) Hypertension Current Visit: Yes Status: Acute Code(s): I10 - ESSENTIAL (PRIMARY) HYPERTENSION SNOMED Code(s): 64949688 Comment: Normotensive on metoprolol, continue to hold HCTZ, hold amlodipine, and hold timolol. Will resume when clinically indicated. (7) Weakness Current Visit: Yes Status: Acute Code(s): R53.1 - WEAKNESS SNOMED Code(s) : 35190519 Comment: Able to work with PT and stand today but not ambulate. Still significantly weak diffusely on exam. CT of the head shows no CVA. Hyperkalemia, hypomagnesemia corrected. Appreciate neurology input, not likely due to parkinson's. Most likely due to postoperative state, pain medication and poor oral intake. Will decrease pain medication, encourage high calorie intake and have nursing staff, PT and family work to get as active as possible. (8) Seizure disorder Current Visit: Yes Status: Acute Code(s): G40.909 - EPILEPSY, UNSP, NOT INTRACTABLE, WITHOUT STATUS EPILEPTICUS SNOMED Code(s): 161547897 Comment: Well controlled. Continue depakote, seizure precautions. Depakote level 51, ammonia 39 on 05/18 (9) MICHAEL (obstructive sleep apnea) Current Visit: Yes Status: Acute Code(s): G47.33 - OBSTRUCTIVE SLEEP APNEA ( ADULT) (PEDIATRIC) SNOMED Code(s): 33647705 Comment: Not Compliant with CPAP at home. Overnight Pulse oximetry normal on O2 therapy. (10) Edema Current Visit: Yes Status: Acute Code(s): R60.9 - EDEMA, UNSPECIFIED SNOMED Code(s): 674699559 Comment: Generalized edema probably related to IV fluid and decreased urinary output. Treated with lasix 20mg POx3 and Lasix IV 20mg to this point, will continue to gently diurese and monitor renal function. (11) Elevated C-reactive protein (CRP) Current Visit: Yes Status: Acute Code(s): R79.82 - ELEVATED C-REACTIVE PROTEIN (CRP) SNOMED Code(s): 750434282 Comment: Unknown etiology, WBC count decreasing, afebrile, urine culture negative, CXR shows no infiltrate. Surgical incision shows no signs of infection. Possibly due to surgery. Will actively monitor for signs of infection and treat if indicated. (12) Anemia Current Visit: Yes Status: Acute Code(s): D64.9 - ANEMIA, UNSPECIFIED SNOMED Code(s): 694524637 Comment: Slow decrease in H/H at 8.2 down from 15.1 preoperatively. Likely represents intraoperative blood loss and dilutional change. No signs of current bleeding. B12 normal. (13) Hypoalbuminemia Current Visit: Yes Status: Acute Code(s): E88.09 - OTH DISORDERS OF PLASMA- PROTEIN METABOLISM, NEC SNOMED Code(s): 935305430 Comment: Likely represents acute malnutrition, prealbumin 7. Will encourage high calorie foods and monitor. 1+ protein in urine, despite anascarca, not likely representing protein wasting nephropathy. (14) Hypoxia Current Visit: Yes Status: Acute Code(s): R09.02 - HYPOXEMIA SNOMED Code(s ): 557814928 Comment: Patient continues to need 4L O2. CXR shows low lung volumes without infiltrate. B/L pleural effusions. Does not wear O2 at home. Possibly due to atelectasis. Small non-obstructed B/L LE blood clots. CTA negative. Will continue to diurese as indicated and wean O2 as tolerated. (15) Lower extremity deep venous thrombosis Current Visit: Yes Status: Acute Code(s): I82.409 - ACUTE EMBOLISM AND THOMBOS UNSP DEEP VN UNSP LOWER EXTREMITY SNOMED Code(s): 376726609 Comment: Possible small bilateral non-obstructing DVTs. Will resume pradaxa now and monitor. (16) Full code status Current Visit: Yes Status: Acute Code(s): Z78.9 - OTHER SPECIFIED HEALTH STATUS SNOMED Code(s): 467540120 (17) DVT prophylaxis Current Visit: Yes Status: Acute Code(s): YPF2251 - SNOMED Code(s): 471590037 Comment: Pradaxa Status and Disposition: Disposition per primary team. Plan for PMRU if able to participate. YFN/Home being discussed.
[2017-05-20] MEDS: Divalproex DR TAB(*) 500 MG PO SCH (20:27)
[2017-05-21] MEDS: oxyCODONE/Acetamin 5/325 MG* TAB PO PRN ×2 (00:34→15:27)
[2017-05-21 06:50] LABS: Hematocrit 24 % (42-52); Hemoglobin 8.1 g/dl (14.0-18.0); Mean Corpuscular HGB Conc 33 g/dl (31-36); Mean Corpuscular Hemoglobin 33 pg (27-31); Mean Corpuscular Volume 100 fL (80-94); Mean Platelet Volume 8 um3 (7.4-10.4); Red Blood Count 2.44 10^6/ul (4.0-5.4); Red Cell Distribution Width 14 % (10.5-15); White Blood Count 10.9 10^3/ul (3.5-10.8)
[2017-05-21 07:05] LABS: Albumin 2.3 g/dL (3.2-5.2); BUN/Creatinine Ratio 41.7 (8-20); Calcium 8.3 mg/dL (8.6-10.3); EGFR African American 113.7 (>60); EGFR Non-African American 88.4 (>60); Globulin 2.5 g/dL (2-4); Magnesium 2.1 mg/dL (1.9-2.7); Potassium 4.5 mmol/L (3.5-5.0); Total Bilirubin 0.5 mg/dL (0.2-1.0); Total Protein 4.8 g/dL (6.4-8.9)
[2017-05-21] MEDS: PROPAFENONE PO SCH ×2 (07:57→21:13)
[2017-05-21] MEDS: Carbidopa/Levodop 25/100 MG TAB(*) PO SCH ×3 (07:57→15:26)
[2017-05-21] MEDS: Metoprolol Tartrate TAB* 50 mg PO SCH (07:57)
[2017-05-21] MEDS: Vitamin THERAPEUTIC TAB PO SCH (07:57)
[2017-05-21] MEDS: Docusate CAP* 100 MG PO SCH ×2 (07:57→21:14)
[2017-05-21] MEDS: CMC:Dabigatran CAP(NF) 150 MG CAP PO SCH ×2 (07:57→21:14)
[2017-05-21] MEDS: Allopurinol TAB* 100 MG PO SCH (07:57)
[2017-05-21] MEDS: DULoxetine DR CAP* 60 MG CAP.DR PO SCH (07:57)
[2017-05-21] MEDS: Magnesium Hydroxide LIQ* 30 ML UDC PO SCH ×2 (07:57→21:14)
[2017-05-21 10:45] LABS: T4 4.33 mcg/mL (6.09-12.23)
[2017-05-21 10:48] LABS: TSH (Thyroid Stimulating Horm) 3.8 mcIU/mL (0.34-5.60)
[2017-05-21 10:55] LABS: Total T3 0.4 ng/mL (0.87-1.78)
--- NOTE | 2017-05-21 14:14 | PN ---
Progress Note - Progress Note Date of Service: 05/21/17 SOAP: Subjective: []Patient seen at bedside. He was lethargic but did respond appropriately to my questions. He denies hip pain, chest pain, shortness of breath. Objective: [] Vital Signs Temp 97.4 F 05/21/17 08:27 Pulse 65 05/21/17 08:27 Resp 16 05/21/17 08:27 BP 118/42 05/21/17 08:27 Pulse Ox 97 05/21/17 08:27 Intake & Output 05/20/17 05/21/17 05/21/17 18:59 06:59 18:59 Intake Total 300 600 Output Total 725 450 250 Balance -425 150 -250 Weight 244 lb 4.8 oz Intake: Oral 300 600 Output: Urine 0 Rubio 725 450 250 Other: # Bowel Movements 0 Laboratory Last Values WBC 10.9 10^3/ul (3.5-10.8) H 05/21/17 06:42 RBC 2.44 10^6/ul (4.0-5.4) L 05/21/17 06:42 Hgb 8.1 g/dl (14.0-18.0) L 05/21/17 06:42 Hct 24 % (42-52) L 05/21/17 06:42 MCV 100 fL (80-94) H 05/21/17 06:42 MCH 33 pg (27-31) H 05/21/17 06:42 MCHC 33 g/dl (31-36) 05/21/17 06:42 RDW 14 % (10.5-15) 05/21/17 06:42 Plt Count 164 10^3/ul (150-450) 05/21/17 06:42 MPV 8 um3 (7.4-10.4) 05/21/17 06:42 Immature Gran % (Auto) 12 % (0-9) H 05/16/17 16:10 Neut % (Auto) 65.8 % (38-83) 05/21/17 06:42 Lymph % (Auto) 17.3 % (25-47) L 05/21/17 06:42 [place] % (Auto) 12.5 % (1-9) H 05/21/17 06:42 Eos % (Auto) 3.4 % (0-6) 05/21/17 06:42 Baso % (Auto) 1.0 % (0-2) 05/21/17 06:42 Absolute Neuts (auto) 7.2 10^3/ul (1.5-7.7) 05/21/17 06:42 Absolute Lymphs (auto) 1.9 10^3/ul (1.0-4.8) 05/21/17 06:42 Absolute Monos (auto) 1.4 10^3/ul (0-0.8) H 05/21/17 06:42 Absolute Eos (auto) 0.4 10^3/ul (0-0.6) 05/21/17 06:42 Absolute Basos (auto) 0.1 10^3/ul (0-0.2) 05/21/17 06:42 Absolute Nucleated RBC 0.01 10^3/ul 05/21/17 06:42 Neutrophils % 63 % (38-83) 05/16/17 16:10 Band Neutrophils % 12 % (0-8) H 05/16/17 16:10 Lymphocytes % 8 % (25-47) L 05/16/17 16:10 Monocytes % 15 % (0-13) H 05/16/17 16:10 Eosinophils % 1 % (0-6) 05/16/17 16:10 Basophils % 1 % (0-2) 05/16/17 16:10 Nucleated RBC % 0.1 05/21/17 06:42 Normal RBC Morphology Not Reportable 05/16/17 16:10 Basophilic Stippling 1+ 05/16/17 16:10 Macrocytosis 1+ 05/16/17 16:10 INR (Anticoag Therapy) 1.16 (0.89-1.11) H 05/16/17 09:14 APTT 31.4 seconds (26.0-36.3) 05/15/17 10:36 Patient Temperature Not Reportable 05/19/17 10:15 ABG pH 7.43 (7.35-7.45) 05/19/17 10:15 ABG pH (Temp Correct) Not Reportable 05/19/17 10:15 ABG pCO2 53 mmHg (35-45) H 05/19/17 10:15 ABG pCO2 (Temp Corrct Not Reportable 05/19/17 10:15 ABG pO2 81 mmHg (80-100) 05/19/17 10:15 ABG pO2 (Temp Correct Not Reportable 05/19/17 10:15 ABG HCO3 32.4 mmol/L (19-31) H 05/19/17 10:15 ABG O2 Saturation 97.3 % (95-98) 05/19/17 10:15 ABG Base Excess 9.6 (-2.0-2.0) H 05/19/17 10:15 Respiration Rate Not Reportable 05/19/17 10:15 O2 Delivery Device nasal cannula 05/19/17 10:15 Ventilator Type Not Reportable 05/19/17 10:15 Vent Mode Not Reportable 05/19/17 10:15 FiO2 4 05/19/17 10:15 Inspiratory Time Not Reportable 05/19/17 10:15 PEEP Not Reportable 05/19/17 10:15 Pressure Support Not Reportable 05/19/17 10:15 Pressure Control Not Reportable 05/19/17 10:15 EPAP Not Reportable 05/19/17 10:15 IPAP Not Reportable 05/19/17 10:15 BiPAP Not Reportable 05/19/17 10:15 Sodium 137 mmol/L (133-145) 05/21/17 06:42 Potassium 4.5 mmol/L (3.5-5.0) 05/21/17 06:42 Chloride 99 mmol/L (101-111) L 05/21/17 06:42 Carbon Dioxide 34 mmol/L (22-32) H 05/21/17 06:42 Anion Gap 4 mmol/L (2-11) 05/21/17 06:42 BUN 35 mg/dL (6-24) H 05/21/17 06:42 Creatinine 0.84 mg/dL (0.67-1.17) 05/21/17 06:42 Est GFR ( Amer) 113.7 (>60) 05/21/17 06:42 Est GFR (Non-Af Amer) 88.4 (>60) 05/21/17 06:42 BUN/Creatinine Ratio 41.7 (8-20) H 05/21/17 06:42 Glucose 99 mg/dL (70-100) 05/21/17 06:42 POC Glucose (mg/dL) 131 mg/dL (70-100) H 05/17/17 00:45 Calcium 8.3 mg/dL (8.6-10.3) L 05/21/17 06:42 Magnesium 2.1 mg/dL (1.9-2.7) 05/21/17 06:42 Total Bilirubin 0.50 mg/dL (0.2-1.0) 05/21/17 06:42 AST 25 U/L (13-39) 05/21/17 06:42 ALT 17 U/L (7-52) 05/21/17 06:42 Alkaline Phosphatase 208 U/L (34-104) H 05/21/17 06:42 Ammonia 39 mol/L (16-53) 05/18/17 16:39 Total Creatine Kinase 54 U/L (10-223) 05/20/17 05:51 C-Reactive Protein 278.63 mg/L (< 5.00) H 05/18/17 05:05 Total Protein 4.8 g/dL (6.4-8.9) L 05/21/17 06:42 Albumin 2.3 g/dL (3.2-5.2) L 05/21/17 06:42 Globulin 2.5 g/dL (2-4) 05/21/17 06:42 Albumin/Globulin Ratio 0.9 (1-3) L 05/21/17 06:42 Prealbumin 7 mg/dL (18-38) L 05/19/17 05:52 Vitamin B12 542 pg/mL (180-914) 05/18/17 16:39 TSH 3.80 mcIU/mL (0.34-5.60) 05/21/17 06:42 Thyroxine (T4) 4.33 mcg/mL (6.09-12.23) L 05/21/17 06:42 Total T3 0.40 ng/mL (0.87-1.78) L 05/21/17 06:42 Urine Color [place] 05/16/17 18:30 Urine Appearance Cloudy 05/16/17 18:30 Urine pH 5.0 (5-9) 05/16/17 18:30 Ur Specific [place] 1.024 (1.010-1.030) 05/16/17 18:30 Urine Protein 1+(30 mg/dl) (Negative) H 05/16/17 18:30 Urine Ketones Trace (Negative) H 05/16/17 18:30 Urine Blood 2+ (Negative) H 05/16/17 18:30 Urine Nitrate Negative (Negative) 05/16/17 18:30 Urine Bilirubin Negative (Negative) 05/16/17 18:30 Urine Urobilinogen Negative (Negative) 05/16/17 18:30 Ur Leukocyte Esterase 1+ (Negative) H 05/16/17 18:30 Urine WBC (Auto) 3+(>20/hpf) (Absent) H 05/16/17 18:30 Urine RBC (Auto) 3+(>10/hpf) (Absent) H 05/16/17 18:30 Urine Bacteria Absent (Absent) 05/16/17 18:30 Ur Random Creatinine 351.06 mg/dL 05/16/17 14:15 Ur Random Sodium < 18 mmol/L 05/16/17 14:15 Urine Glucose Negative (Negative) 05/16/17 18:30 Valproic Acid 51.0 mcg/mL (50-100) 05/18/17 16:39 Blood Type O Positive 05/15/17 10:36 Antibody Screen Negative 05/15/17 10:36 General: Laying in bed lethargic. Cooperative. RLE: Dressing changed. Incision is clean, dry, intact without erythema of wound edge and no discharge. Bilateral lower extremities: DF/PF intact, DP/PT pulses 2+. 2+ pitting edema bl. Sensation intact distally. Assessment: []s/p right total hip arthroplasty 05/15/17, Dr. Avalos possible b/l DVT, no PE Plan: []Ambulate as tolerated. Out of bed to chair for meals. Continue PT/OT Hospitalist co-managing YFN planned 05/22 or 05/23
--- NOTE | 2017-05-21 15:19 | PN ---
Subjective Date of Service: 05/21/17 Interval History: Patient lethargic in the morning but improved later in the day. Still A/Ox3 but has new behavioral concerns consisting of making inappropriate comments to female staff members and stating that he feels his family has trapped him here and will not believe that he has problems with his hip. Family History: Unchanged from Admission Social History: Unchanged from Admission Past Medical History: Unchanged from Admission Objective Active Medications: Acetaminophen (Tylenol Tab*) 650 mg PO Q4H PRN PRN Reason: FEVER/PAIN Last Admin: 05/19/17 14:00 Dose: 650 mg Allopurinol (Zyloprim Tab*) 200 mg PO QAM [facility] Last Admin: 05/21/17 07:57 Dose: 200 mg Bisacodyl (Dulcolax Supp*) 10 mg [place] DAILY PRN PRN Reason: constipation Carbidopa/Levodopa (Sinemet 25/100 Tab(*)) 1.5 tab PO TID AC [facility] Last Admin: 05/21/17 11:59 Dose: 1.5 tab Dabigatran (Pradaxa Cap(Nf)) 150 mg PO BID [facility] Last Admin: 05/21/17 07:57 Dose: 150 mg Dextrose (D50w Syringe 50 Ml*) 25 gm IV PUSH ONCE PRN PRN Reason: FS < 60 Last Admin: 05/16/17 20:37 Dose: 25 gm Diphenhydramine HCl (Benadryl Po*) 25 mg PO Q6H PRN PRN Reason: itching Divalproex Sodium (Depakote Dr Tab(*)) 1,500 mg PO BEDTIME [facility] Last Admin: 05/20/17 20:27 Dose: 1,500 mg Docusate Sodium (Colace Cap*) 100 mg PO BID [facility] Last Admin: 05/21/17 07:57 Dose: 100 mg Duloxetine HCl (Cymbalta Cap*) 60 mg PO QAM [facility] Last Admin: 05/21/17 07:57 Dose: 60 mg Magnesium Hydroxide (Milk Of Magnesia Liq*) 30 ml PO BID [facility] Last Admin: 05/21/17 07:57 Dose: 30 ml Metoprolol Tartrate (Lopressor Tab*) 125 mg PO QAM [facility] Last Admin: 05/21/17 07:57 Dose: 125 mg Multivitamins (Theragran Tab*) 1 tab PO DAILY [facility] Last Admin: 05/21/17 07:57 Dose: 1 tab Pto: Propafenone Er (425 Cap) 1 admin PO BID [facility] Last Admin: 05/21/17 07:57 Dose: 1 admin Ondansetron HCl (Zofran Inj*) 4 mg IV Q6H PRN PRN Reason: nausea Oxycodone/Acetaminophen (Percocet 5/325 Tab*) 1 tab PO Q4H PRN PRN Reason: PAIN Last Admin: 05/19/17 03:50 Dose: 1 tab Polyethylene Glycol/Electrolytes (Miralax*) 17 gm PO DAILY PRN PRN Reason: Constipation Vital Signs 05/20/17 05/20/17 05/20/17 15:34 15:57 19:18 Temperature 97.9 F 98.3 F Pulse Rate 66 69 Respiratory 17 18 Rate Blood Pressure 119/41 119/42 (mmHg) O2 Sat by Pulse 94 94 98 Oximetry 05/20/17 05/20/17 05/21/17 19:31 23:48 00:00 Temperature 98.5 F Pulse Rate 72 Respiratory 17 20 Rate Blood Pressure 119/45 (mmHg) O2 Sat by Pulse 93 93 Oximetry 05/21/17 05/21/17 05/21/17 00:34 02:43 03:30 Temperature 99.4 F Pulse Rate 66 Respiratory 20 20 20 Rate Blood Pressure 146/45 (mmHg) O2 Sat by Pulse 90 Oximetry 05/21/17 05/21/17 05/21/17 07:29 08:00 08:06 Temperature 97.7 F Pulse Rate 64 Respiratory 18 Rate Blood Pressure 122/42 (mmHg) O2 Sat by Pulse 97 97 Oximetry 05/21/17 08:27 Temperature 97.4 F Pulse Rate 65 Respiratory 16 Rate Blood Pressure 118/42 (mmHg) O2 Sat by Pulse 97 Oximetry Oxygen Devices in Use Now: Nasal Cannula Appearance: Patient is a 77yo male who appears stated age and is sitting in the bed in [facility]. Eyes: No Scleral Icterus, PERRLA Ears/Nose/Mouth/Throat: NL Teeth, Lips, Gums, Clear Oropharnyx, Mucous Membranes Moist Neck: NL Appearance and Movements; NL JVP, Trachea Midline Respiratory: Symmetrical Chest Expansion and Respiratory Effort, - - Slight insipratory crackles in B/L LL Cardiovascular: NL Sounds; No Murmurs; No JVD, RRR, - - 3+ pitting edema in RLE and 2+ pitting edema in LLE. Continued swelling in subcutaneous tissues diffusely. Unchanged from previous exam. Abdominal: NL Sounds; No Tenderness; No Distention, No Hepatosplenomegaly Lymphatic: No Cervical Adenopathy Extremities: No Edema, No Clubbing, Cyanosis Skin: No Rash or Ulcers, No Nodules or Sclerosis Neurological: Alert and Oriented x 3, - - Diffusely weak with poor effort. Normal Reflexes, sensation intact. Result Diagrams: 05/21/17 06:42 05/21/17 06:42 Microbiology and Other Data: Microbiology 05/16/17 18:30 Urine Culture - Final Urine No Growth (<1,000 CFU/mL) Assess/Plan/Problems-Billing Assessment: Patient is a 77yo male with a PMH significant for Parkinson's, HTN, HLD, Seizure disorder, and paroxysmal Atrial Fibrillation who is POD #5 from a RTHA. Patient had GLORIA, Hyperkalemia which are now resolved. Patient has continued to be lethargic and weak, improving with decrease in pain medication and stimulation. - Patient Problems (1) Post-operative state Current Visit: Yes Status: Acute Code(s): Z98.890 - OTHER SPECIFIED POSTPROCEDURAL STATES SNOMED Code(s): 84582514 Comment: No pain at surgical site, only pain in B/L heels. Hyperkalemia resolved. Had large BM on 05/17 and 05/18, Rubio removed and incontinent of urine without retention. (2) GLORIA (acute kidney injury) Current Visit: Yes Status: Acute Code(s): N17.9 - ACUTE KIDNEY FAILURE, UNSPECIFIED SNOMED Code(s): 38092169 Comment: Patient normotensive with H/H slowly decreasing with no evidence of continued bleeding. Responded to fluids, cret at baseline. FeNa was .1% indicating prerenal etiology. Patient had UTI preoperatively. UA shows Blood, RBC, Leukocyte esterase and WBC. Patient was treated with Bactrim for UTI preoperatively. Culture negative, no other signs of UTI, will not give antibiotics at this time. (3) Delirium Current Visit: Yes Status: Acute Code(s): R41.0 - DISORIENTATION, UNSPECIFIED SNOMED Code(s): 6135933 Comment: Patient showing signs of delirium with fluctuating mental status, hypoactivity, and significant risk factors including immobilization, hospitalization, and narcotic pain medication. No other cause identified. Underlying dementia with a MOCA of 18/30 at most recent neurologist appointment. (4) Hyperkalemia Current Visit: Yes Status: Acute Code(s): E87.5 - HYPERKALEMIA SNOMED Code (s): 53028422 Comment: Resolved, K+ now 4.5, will continue to monitor. (5) Parkinsons disease Current Visit: Yes Status: Acute Code(s): G20 - PARKINSON'S DISEASE SNOMED Code(s): 29611926 Comment: Signs of moderate Parkinson's, continue sinemet. Appreciate neurology input, likely not contributing greatly to weakness. (6) Paroxysmal A-fib Current Visit: Yes Status: Acute Code(s): I48.0 - PAROXYSMAL ATRIAL FIBRILLATION SNOMED Code(s): 213071602 Comment: Currently in NSR. Continue Metoprolol and Propafenone. Patient is normotensive, will continue to monitor. Will attempt to keep K+ above 4.0.. (7) Hypertension Current Visit: Yes Status: Acute Code(s): I10 - ESSENTIAL (PRIMARY) HYPERTENSION SNOMED Code(s): 78360485 Comment: Normotensive on metoprolol, continue to hold HCTZ, hold amlodipine, and hold timolol. Will resume when clinically indicated. (8) Weakness Current Visit: Yes Status: Acute Code(s): R53.1 - WEAKNESS SNOMED Code(s) : 71188725 Comment: Able to work with PT and stand today but not ambulate. Still significantly weak diffusely on exam. CT of the head shows no CVA. Hyperkalemia, hypomagnesemia corrected. Appreciate neurology input, not likely due to parkinson's. Most likely due to postoperative state, pain medication and poor oral intake. Will decrease pain medication, encourage high calorie intake and have nursing staff, PT and family work to get as active as possible. (9) Seizure disorder Current Visit: Yes Status: Acute Code(s): G40.909 - EPILEPSY, UNSP, NOT INTRACTABLE, WITHOUT STATUS EPILEPTICUS SNOMED Code(s): 427772009 Comment: Well controlled. Continue depakote, seizure precautions. Depakote level 51, ammonia 39 on 05/18 (10) MICHAEL (obstructive sleep apnea) Current Visit: Yes Status: Acute Code(s): G47.33 - OBSTRUCTIVE SLEEP APNEA ( ADULT) (PEDIATRIC) SNOMED Code(s): 18178402 Comment: Not Compliant with CPAP at home. Overnight Pulse oximetry normal on O2 therapy. (11) Edema Current Visit: Yes Status: Acute Code(s): R60.9 - EDEMA, UNSPECIFIED SNOMED Code(s): 875765581 Comment: Generalized edema probably related to IV fluid and decreased urinary output. Treated with lasix 20mg POx3 and Lasix IV 20mg to this point, will continue to gently diurese and monitor renal function. (12) Elevated C-reactive protein (CRP) Current Visit: Yes Status: Acute Code(s): R79.82 - ELEVATED C-REACTIVE PROTEIN (CRP) SNOMED Code(s): 464673805 Comment: Unknown etiology, WBC count decreasing, afebrile, urine culture negative, CXR shows no infiltrate. Surgical incision shows no signs of infection. Possibly due to surgery. Will actively monitor for signs of infection and treat if indicated. (13) Anemia Current Visit: Yes Status: Acute Code(s): D64.9 - ANEMIA, UNSPECIFIED SNOMED Code(s): 295849443 Comment: Slow decrease in H/H at 8.1 down from 15.1 preoperatively. Likely represents intraoperative blood loss and dilutional change. No signs of current bleeding. B12 normal. (14) Hypoalbuminemia Current Visit: Yes Status: Acute Code(s): E88.09 - OTH DISORDERS OF PLASMA- PROTEIN METABOLISM, NEC SNOMED Code(s): 850880391 Comment: Likely represents acute malnutrition, prealbumin 7. Will encourage high calorie foods and monitor. 1+ protein in urine, despite anascarca, not likely representing protein wasting nephropathy. (15) Hypoxia Current Visit: Yes Status: Acute Code(s): R09.02 - HYPOXEMIA SNOMED Code(s ): 109517548 Comment: Patient continues to need 3L O2. CXR shows low lung volumes without infiltrate. B/L pleural effusions. Does not wear O2 at home. Possibly due to atelectasis and anemia. Small non-obstructed B/L LE blood clots. CTA negative. Will continue to diurese as indicated and wean O2 as tolerated. (16) Lower extremity deep venous thrombosis Current Visit: Yes Status: Acute Code(s): I82.409 - ACUTE EMBOLISM AND THOMBOS UNSP DEEP VN UNSP LOWER EXTREMITY SNOMED Code(s): 377647847 Comment: Possible small bilateral non-obstructing DVTs. Will resume pradaxa now and monitor. (17) Full code status Current Visit: Yes Status: Acute Code(s): Z78.9 - OTHER SPECIFIED HEALTH STATUS SNOMED Code(s): 272888809 (18) DVT prophylaxis Current Visit: Yes Status: Acute Code(s): DPV7977 - SNOMED Code(s): 331097230 Comment: Pradaxa Status and Disposition: Discharge to [facility] being discussed. Estimated within next 1-2 days.
[2017-05-21] MEDS: Divalproex DR TAB(*) 500 MG PO SCH (21:14)
[2017-05-22 05:26] LABS: Add Diff/Slide Review? Slide Review Added; Comments Flag Yes; Hematocrit 25 % (42-52); Hemoglobin 8.3 g/dl (14.0-18.0); Mean Corpuscular HGB Conc 34 g/dl (31-36); Mean Corpuscular Hemoglobin 33 pg (27-31); Mean Corpuscular Volume 99 fL (80-94); Mean Platelet Volume 8 um3 (7.4-10.4); Red Blood Count 2.48 10^6/ul (4.0-5.4); Red Cell Distribution Width 14 % (10.5-15); White Blood Count 12.6 10^3/ul (3.5-10.8)
[2017-05-22 05:43] LABS: BUN/Creatinine Ratio 37.8 (8-20); Calcium 8.1 mg/dL (8.6-10.3); EGFR African American 116.9 (>60); EGFR Non-African American 90.9 (>60); Potassium 4.4 mmol/L (3.5-5.0)
[2017-05-22] MEDS: oxyCODONE/Acetamin 5/325 MG* TAB PO PRN (05:54)
--- NOTE | 2017-05-22 09:17 | PN ---
Progress Note - Progress Note Date of Service: 05/22/17 SOAP: Subjective: []Patient seen out of bed in chair. He complains of pain over his surgical site. He denies chest pain, shortness of breath, leg numbness. Objective: [] Vital Signs Temp 98.0 F 05/22/17 03:10 Pulse 66 05/22/17 03:10 Resp 16 05/22/17 09:58 BP 116/44 05/22/17 03:10 Pulse Ox 98 05/22/17 03:10 Intake & Output 05/21/17 05/22/17 05/22/17 18:59 06:59 18:59 Intake Total 590 440 120 Output Total 250 Balance 340 440 120 Weight 242 lb Intake: Oral 590 440 120 Output: Rubio 250 Other: Estimated Void Large # Bowel Movements 0 # Voids 2 Laboratory Last Values WBC 12.6 10^3/ul (3.5-10.8) H 05/22/17 05:15 RBC 2.48 10^6/ul (4.0-5.4) L 05/22/17 05:15 Hgb 8.3 g/dl (14.0-18.0) L 05/22/17 05:15 Hct 25 % (42-52) L 05/22/17 05:15 MCV 99 fL (80-94) H 05/22/17 05:15 MCH 33 pg (27-31) H 05/22/17 05:15 MCHC 34 g/dl (31-36) 05/22/17 05:15 RDW 14 % (10.5-15) 05/22/17 05:15 Plt Count 204 10^3/ul (150-450) 05/22/17 05:15 MPV 8 um3 (7.4-10.4) 05/22/17 05:15 Immature Gran % (Auto) 12 % (0-9) H 05/16/17 16:10 Neut % (Auto) 69.5 % (38-83) 05/22/17 05:15 Lymph % (Auto) 14.2 % (25-47) L 05/22/17 05:15 [place] % (Auto) 11.9 % (1-9) H 05/22/17 05:15 Eos % (Auto) 3.2 % (0-6) 05/22/17 05:15 Baso % (Auto) 1.2 % (0-2) 05/22/17 05:15 Absolute Neuts (auto) 8.8 10^3/ul (1.5-7.7) H 05/22/17 05:15 Absolute Lymphs (auto) 1.8 10^3/ul (1.0-4.8) 05/22/17 05:15 Absolute Monos (auto) 1.5 10^3/ul (0-0.8) H 05/22/17 05:15 Absolute Eos (auto) 0.4 10^3/ul (0-0.6) 05/22/17 05:15 Absolute Basos (auto) 0.1 10^3/ul (0-0.2) 05/22/17 05:15 Absolute Nucleated RBC 0.02 10^3/ul 05/22/17 05:15 Neutrophils % 63 % (38-83) 05/16/17 16:10 Band Neutrophils % 12 % (0-8) H 05/16/17 16:10 Lymphocytes % 8 % (25-47) L 05/16/17 16:10 Monocytes % 15 % (0-13) H 05/16/17 16:10 Eosinophils % 1 % (0-6) 05/16/17 16:10 Basophils % 1 % (0-2) 05/16/17 16:10 Nucleated RBC % 0.1 05/22/17 05:15 Normal RBC Morphology Not Reportable 05/16/17 16:10 Basophilic Stippling 1+ 05/16/17 16:10 Macrocytosis 1+ 05/16/17 16:10 INR (Anticoag Therapy) 1.16 (0.89-1.11) H 05/16/17 09:14 APTT 31.4 seconds (26.0-36.3) 05/15/17 10:36 Patient Temperature Not Reportable 05/19/17 10:15 ABG pH 7.43 (7.35-7.45) 05/19/17 10:15 ABG pH (Temp Correct) Not Reportable 05/19/17 10:15 ABG pCO2 53 mmHg (35-45) H 05/19/17 10:15 ABG pCO2 (Temp Corrct Not Reportable 05/19/17 10:15 ABG pO2 81 mmHg (80-100) 05/19/17 10:15 ABG pO2 (Temp Correct Not Reportable 05/19/17 10:15 ABG HCO3 32.4 mmol/L (19-31) H 05/19/17 10:15 ABG O2 Saturation 97.3 % (95-98) 05/19/17 10:15 ABG Base Excess 9.6 (-2.0-2.0) H 05/19/17 10:15 Respiration Rate Not Reportable 05/19/17 10:15 O2 Delivery Device nasal cannula 05/19/17 10:15 Ventilator Type Not Reportable 05/19/17 10:15 Vent Mode Not Reportable 05/19/17 10:15 FiO2 4 05/19/17 10:15 Inspiratory Time Not Reportable 05/19/17 10:15 PEEP Not Reportable 05/19/17 10:15 Pressure Support Not Reportable 05/19/17 10:15 Pressure Control Not Reportable 05/19/17 10:15 EPAP Not Reportable 05/19/17 10:15 IPAP Not Reportable 05/19/17 10:15 BiPAP Not Reportable 05/19/17 10:15 Sodium 136 mmol/L (133-145) 05/22/17 05:15 Potassium 4.4 mmol/L (3.5-5.0) 05/22/17 05:15 Chloride 98 mmol/L (101-111) L 05/22/17 05:15 Carbon Dioxide 35 mmol/L (22-32) H 05/22/17 05:15 Anion Gap 3 mmol/L (2-11) 05/22/17 05:15 BUN 31 mg/dL (6-24) H 05/22/17 05:15 Creatinine 0.82 mg/dL (0.67-1.17) 05/22/17 05:15 Est GFR ( Amer) 116.9 (>60) 05/22/17 05:15 Est GFR (Non-Af Amer) 90.9 (>60) 05/22/17 05:15 BUN/Creatinine Ratio 37.8 (8-20) H 05/22/17 05:15 Glucose 111 mg/dL (70-100) H 05/22/17 05:15 POC Glucose (mg/dL) 131 mg/dL (70-100) H 05/17/17 00:45 Calcium 8.1 mg/dL (8.6-10.3) L 05/22/17 05:15 Magnesium 2.1 mg/dL (1.9-2.7) 05/21/17 06:42 Total Bilirubin 0.50 mg/dL (0.2-1.0) 05/21/17 06:42 AST 25 U/L (13-39) 05/21/17 06:42 ALT 17 U/L (7-52) 05/21/17 06:42 Alkaline Phosphatase 208 U/L (34-104) H 05/21/17 06:42 Ammonia 39 mol/L (16-53) 05/18/17 16:39 Total Creatine Kinase 54 U/L (10-223) 05/20/17 05:51 C-Reactive Protein 126.29 mg/L (< 5.00) H 05/22/17 05:15 Total Protein 4.8 g/dL (6.4-8.9) L 05/21/17 06:42 Albumin 2.3 g/dL (3.2-5.2) L 05/21/17 06:42 Globulin 2.5 g/dL (2-4) 05/21/17 06:42 Albumin/Globulin Ratio 0.9 (1-3) L 05/21/17 06:42 Prealbumin 7 mg/dL (18-38) L 05/19/17 05:52 Vitamin B12 542 pg/mL (180-914) 05/18/17 16:39 TSH 3.80 mcIU/mL (0.34-5.60) 05/21/17 06:42 Thyroxine (T4) 4.33 mcg/mL (6.09-12.23) L 05/21/17 06:42 Total T3 0.40 ng/mL (0.87-1.78) L 05/21/17 06:42 Urine Color [place] 05/16/17 18:30 Urine Appearance Cloudy 05/16/17 18:30 Urine pH 5.0 (5-9) 05/16/17 18:30 Ur Specific [place] 1.024 (1.010-1.030) 05/16/17 18:30 Urine Protein 1+(30 mg/dl) (Negative) H 05/16/17 18:30 Urine Ketones Trace (Negative) H 05/16/17 18:30 Urine Blood 2+ (Negative) H 05/16/17 18:30 Urine Nitrate Negative (Negative) 05/16/17 18:30 Urine Bilirubin Negative (Negative) 05/16/17 18:30 Urine Urobilinogen Negative (Negative) 05/16/17 18:30 Ur Leukocyte Esterase 1+ (Negative) H 05/16/17 18:30 Urine WBC (Auto) 3+(>20/hpf) (Absent) H 05/16/17 18:30 Urine RBC (Auto) 3+(>10/hpf) (Absent) H 05/16/17 18:30 Urine Bacteria Absent (Absent) 05/16/17 18:30 Ur Random Creatinine 351.06 mg/dL 05/16/17 14:15 Ur Random Sodium < 18 mmol/L 05/16/17 14:15 Urine Glucose Negative (Negative) 05/16/17 18:30 Valproic Acid 51.0 mcg/mL (50-100) 05/18/17 16:39 Blood Type O Positive 05/15/17 10:36 Antibody Screen Negative 05/15/17 10:36 General: Lethargic though more interactive than yesterday. Calm, cooperative. RLE: incision clean, dry and intact though dressing shows evidence of yellow nonpurulant discharge. Dressing changed. Calf with 3+ pitting edema. DF/PF intact. Capillary refill brisk distally. DP/PT 1+ difficult to palpate with edema LLE: 2+ pitting edema. DF/PF intact. DP/PT 2+. Assessment: []s/p right total hip arthroplasty Dr Avalos. Plan: []WBAT PT/OT Has bed offers from nursing homes, family deciding. Appreciate hospitalist co-managing- not yet medically stable for discharge. Has bed accepted at [facility]
--- NOTE | 2017-05-22 09:55 | PN ---
Subjective Date of Service: 05/22/17 Interval History: Mr. Dewitt states that he is feeling better today though he remains weak. He reports pain in his right wrist. He denies other complaint including chest pain, SOB, nausea, or abdominal pain. Family History: Unchanged from Admission Social History: Unchanged from Admission Past Medical History: Unchanged from Admission Objective Active Medications: Acetaminophen (Tylenol Tab*) 650 mg PO Q4H PRN Allopurinol (Zyloprim Tab*) 200 mg PO QAM [facility] Bisacodyl (Dulcolax Supp*) 10 mg [place] DAILY PRN Carbidopa/Levodopa (Sinemet 25/100 Tab(*)) 1.5 tab PO TID AC [facility] Dabigatran (Pradaxa Cap(Nf)) 150 mg PO BID [facility] Dextrose (D50w Syringe 50 Ml*) 25 gm IV PUSH ONCE PRN Diphenhydramine HCl (Benadryl Po*) 25 mg PO Q6H PRN Divalproex Sodium (Depakote Dr Tab(*)) 1,500 mg PO BEDTIME [facility] Docusate Sodium (Colace Cap*) 100 mg PO BID [facility] Duloxetine HCl (Cymbalta Cap*) 60 mg PO QAM [facility] Magnesium Hydroxide (Milk Of Magnesia Liq*) 30 ml PO BID [facility] Metoprolol Tartrate (Lopressor Tab*) 125 mg PO QAM [facility] Multivitamins (Theragran Tab*) 1 tab PO DAILY [facility] Pto: Propafenone Er (425 Cap) 1 admin PO BID [facility] Ondansetron HCl (Zofran Inj*) 4 mg IV Q6H PRN Oxycodone/Acetaminophen (Percocet 5/325 Tab*) 1 tab PO Q4H PRN Polyethylene Glycol/Electrolytes (Miralax*) 17 gm PO DAILY PRN Vital Signs: Temp Pulse Resp BP Pulse Ox 98.0 F 66 16 116/44 98 05/22/17 03:10 05/22/17 03:10 05/22/17 09:58 05/22/17 03:10 05/22/17 03:10 Oxygen Devices in Use Now: None, Nasal Cannula Appearance: Male sitting up in chair in NAD Eyes: No Scleral Icterus Ears/Nose/Mouth/Throat: Mucous Membranes Moist Neck: Trachea Midline Respiratory: Symmetrical Chest Expansion and Respiratory Effort, Clear to Auscultation Cardiovascular: NL Sounds; No Murmurs; No JVD, No Edema Abdominal: NL Sounds; No Tenderness; No Distention Lymphatic: No Cervical Adenopathy Extremities: - - +2 pitting edema to R LE, + 1 edema otherwise Neurological: - - Alert and oriented x 3, generally weak but has +3-4 strength in extremities Nutrition: Taking PO's Result Diagrams: 05/22/17 05:15 05/22/17 05:15 Microbiology and Other Data: . Assess/Plan/Problems-Billing Assessment: Mr. Dewitt is a 77yo male with a PMH significant for Parkinson's, HTN, HLD, seizure disorder, and paroxysmal Atrial Fibrillation who is POD #5 from a RTHA. Patient had GLORIA and hyperkalemia which are now resolved. - Patient Problems (1) Weakness Comment: - Still significantly weak diffusely on exam, though improved. - Appreciate neurology input, not likely due to parkinson's. Most likely due to postoperative state, pain medication and poor oral intake. CT brain negative. Will decrease pain medication, encourage high calorie intake and have nursing staff, PT and family work to get as active as possible. (2) Delirium Comment: - Improved today. - Patient showing signs of delirium with fluctuating mental status, hypoactivity , and significant risk factors including immobilization, hospitalization, and narcotic pain medication. No other cause identified. Underlying dementia with a MOCA of 18/30 at most recent neurologist appointment. (3) Edema Comment: - Continued edema though primarily in R (operative) leg. - 40mg IV lasix x 1 now, creatinine normal. Thus far has been treated with lasix 20mg PO x 3 and Lasix IV 20mg to this point. (4) Hypoxia Comment: - Resolved. - CXR shows low lung volumes without infiltrate. B/L pleural effusions. Does not wear O2 at home. Possibly due to atelectasis and anemia. Small non- obstructed B/L LE blood clots. CTA negative. Will continue to diurese as indicated. (5) Hypothyroidism Comment: - TSH 3 but T4 low. - Start low dose levothyroxine. (6) Lower extremity deep venous thrombosis Comment: - Possible small bilateral non-obstructing DVTs. - Continue pradaxa. (7) Status post total hip replacement, right Comment: - No acute issues identified per ortho, ok for discharge from their perspective. (8) GLORIA (acute kidney injury) Comment: - Resolved. (9) Anemia Comment: - Stable. - Slow decrease in H/H at 8.1 down from 15.1 preoperatively. Likely represents intraoperative blood loss and dilutional change. No signs of current bleeding. (10) Elevated C-reactive protein (CRP) Comment: - Resolving. - Unknown etiology but suspect secondary to surgery. WBC count decreasing, afebrile, urine culture negative, CXR shows no infiltrate. Surgical incision shows no signs of infection. Possibly due to surgery. Will actively monitor for signs of infection and treat if indicated. (11) Hyperkalemia Comment: Resolved, K+ now 4.5, will continue to monitor. (12) Hypertension Comment: Normotensive on metoprolol, continue to hold HCTZ, hold amlodipine, and hold timolol. Will resume when clinically indicated. (13) Hypoalbuminemia Comment: Likely represents acute malnutrition, prealbumin 7. Will encourage high calorie foods and monitor. 1+ protein in urine, despite anascarca, not likely representing protein wasting nephropathy. (14) MICHAEL (obstructive sleep apnea) Comment: - Not Compliant with CPAP at home. - Overnight Pulse oximetry normal on O2 therapy. - Component of CO2 retention likely contributing to encephalopathy. (15) Parkinsons disease Comment: - Signs of moderate Parkinson's, Appreciate neurology input, likely not contributing greatly to weakness. - Continue sinemet. (16) Paroxysmal A-fib Comment: - Currently in NSR. - Continue Metoprolol and Propafenone. (17) Seizure disorder Comment: - Well controlled. Continue depakote, seizure precautions. - Depakote level 51, ammonia 39 on 05/18 (18) DVT prophylaxis Comment: Pradaxa (19) Full code status Status and Disposition: Discharge to [facility] being discussed. Estimated within next 1-2 days.
[2017-05-22] MEDS: Carbidopa/Levodop 25/100 MG TAB(*) PO SCH ×3 (10:07→17:05)
[2017-05-22] MEDS: PROPAFENONE PO SCH ×2 (10:07→21:15)
[2017-05-22] MEDS: Vitamin THERAPEUTIC TAB PO SCH (10:08)
[2017-05-22] MEDS: Metoprolol Tartrate TAB* 50 mg PO SCH (10:08)
[2017-05-22] MEDS: DULoxetine DR CAP* 60 MG CAP.DR PO SCH (10:09)
[2017-05-22] MEDS: CMC:Dabigatran CAP(NF) 150 MG CAP PO SCH ×2 (10:09→21:14)
[2017-05-22] MEDS: Allopurinol TAB* 100 MG PO SCH (10:09)
[2017-05-22] MEDS: Magnesium Hydroxide LIQ* 30 ML UDC PO SCH ×3 (10:10→21:18)
[2017-05-22] MEDS: Docusate CAP* 100 MG PO SCH ×2 (10:10→21:18)
[2017-05-22] MEDS ORDERED: Furosemide IV* 10 MG/ML VIAL (40 MG) IV ONE (10:42)
[2017-05-22 10:43] LABS: C Reactive Protein 126.29 mg/L (< 5.00)
--- NOTE | 2017-05-22 16:54 | RAD ---
INDICATION: RIGHT wrist pain and limited range of motion. Osteoarthritis. COMPARISON: None. TECHNIQUE: AP, lateral, and oblique views RIGHT wrist. REPORT: Mild diastases at the scapholunate interval and increased scapholunate angle suspicious for some age indeterminate scapholunate ligament tear. No fracture evident. Mild chondrocalcinosis throughout. Mild osteophytosis and moderately severe joint space narrowing at the basal joint of the thumb. Suggestion of small loose bodies along the volar and dorsal margin of the carpus on the lateral view. Soft tissue swelling most prominent along the ulnar aspect. 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 Stigmata of age indeterminate scapholunate ligament tear. Soft tissue swelling most prominent along the ulnar aspect.
[2017-05-22] MEDS: Divalproex DR TAB(*) 500 MG PO SCH (21:14)
--- NOTE | 2017-05-22 23:00 | CONS ---
NEUROLOGY CONSULT FOLLOWUP: DATE OF FOLLOWUP: 05/22/17. He is an inpatient, room 446. HOSPITALIST: Savana Abla NP CHIEF COMPLAINT: Mental status changes. Since my last visit with Mr. Dewitt, on 05/18/17 he has had a very slow progression with a fluctuating course, specifically in regard to his mental status. Sometimes, he is described as confused and somnolent and other times, he is more interactive. He is variably interactive with the physical therapist and is not always willing to participate. He denies headaches or change in vision. He said he is eating okay and denies abdominal problems. MEDICATIONS: Medications are reviewed and he remains on carbidopa/levodopa one and a half tablets t.i.d., Pradaxa 150 mg p.o. b.i.d., allopurinol 200 mg p.o. q.a.m., Depakote 1500 mg p.o. q.h.s., Cymbalta 60 mg p.o. q.a.m., levothyroxine , metoprolol 125 mg p.o. q.a.m., oxycodone/acetaminophen 5/325 which he has been getting about 1 a day. PHYSICAL EXAMINATION: He has been afebrile for several days at least, his blood pressure is running typically between about 40 to 50 diastolic and about a 120 systolic. Oxygen saturations are in the high 90s on supplemental oxygen. He is quite alert and recognizes me when I come in the room. He recalls that one of my partners is Dr. Jeimy Woodall, who is his neurologist. He recalls he first started seeing her down in [facility]. His memory seems pretty good at the moment and language is generally fluent. There is some mild psychomotor retardation, but he is able to ask questions and make some jokes as well. Mr. Dewitt is making a slow recovery from his surgery, but I do not think it is too unusual in the setting with the patient with at least a mild dementia before the procedure and some postoperative complications in terms of azotemia. He is still pretty anemic, and with his history of sleep apnea and refuses to use the CPAP machine, he may be having significant carbon dioxide retention contributing to his encephalopathy. This is a difficult situation to treat; however, he refuses CPAP. Currently, he seems to be doing pretty well and I reviewed the case and examined Mr. Dewitt. Savana Alba will continue to follow and call me if changes develop. [id number]/[facility] #: [id number] RADHA
[2017-05-23] MEDS ORDERED: Levothyroxine TAB* 25 MCG TAB PO SCH (06:00)
[2017-05-23 07:04] LABS: Hematocrit 27 % (42-52); Hemoglobin 8.9 g/dl (14.0-18.0); Mean Corpuscular HGB Conc 34 g/dl (31-36); Mean Corpuscular Hemoglobin 33 pg (27-31); Mean Corpuscular Volume 99 fL (80-94); Mean Platelet Volume 7 um3 (7.4-10.4); Red Blood Count 2.68 10^6/ul (4.0-5.4); Red Cell Distribution Width 14 % (10.5-15); White Blood Count 16.3 10^3/ul (3.5-10.8)
[2017-05-23 07:10] LABS: Add Diff/Slide Review? Slide Review Added; Comments Flag Yes
[2017-05-23 07:23] LABS: BUN/Creatinine Ratio 35.3 (8-20); Calcium 8.3 mg/dL (8.6-10.3); EGFR African American 112.1 (>60); EGFR Non-African American 87.2 (>60); Potassium 4.1 mmol/L (3.5-5.0)
[2017-05-23] MEDS: Metoprolol Tartrate TAB* 50 mg PO SCH (08:23)
[2017-05-23] MEDS: DULoxetine DR CAP* 60 MG CAP.DR PO SCH (08:23)
[2017-05-23] MEDS: CMC:Dabigatran CAP(NF) 150 MG CAP PO SCH ×2 (08:23→21:48)
[2017-05-23] MEDS: PROPAFENONE PO SCH ×2 (08:24→21:49)
[2017-05-23] MEDS: Allopurinol TAB* 100 MG PO SCH (08:24)
[2017-05-23] MEDS: Vitamin THERAPEUTIC TAB PO SCH (08:24)
[2017-05-23] MEDS: Docusate CAP* 100 MG PO SCH ×2 (08:24→21:49)
[2017-05-23] MEDS: Magnesium Hydroxide LIQ* 30 ML UDC PO SCH ×2 (08:24→21:49)
[2017-05-23] MEDS: Carbidopa/Levodop 25/100 MG TAB(*) PO SCH ×3 (08:24→16:51)
[2017-05-23 09:18] LABS: FIO2 2
[2017-05-23 09:20] LABS: PCO2 Arterial 48 mmHg (35-45)
--- NOTE | 2017-05-23 09:37 | RAD ---
HISTORY: Hypoxia COMPARISONS: May 19, 2017 VIEWS: 1: frontal portable view of the chest at 9:09 AM FINDINGS: LINES AND TUBES: None. CARDIOMEDIASTINAL SILHOUETTE: The cardiomediastinal silhouette is normal for portable technique. PLEURA: The costophrenic angles are sharp. No pleural abnormalities are noted. LUNG PARENCHYMA: The lung volumes are low. The lungs are clear accounting for the phase of respiration. ABDOMEN: The upper abdomen is clear. There is no subphrenic gas. BONES AND SOFT TISSUES: No bone or soft tissue abnormalities are noted. IMPRESSION: LOW LUNG VOLUMES. NO ACTIVE CARDIOPULMONARY DISEASE.
--- NOTE | 2017-05-23 12:38 | PN ---
Progress Note - Progress Note Date of Service: 05/23/17 SOAP: Subjective: 77 y/o male s/p R DORON with complications post-op. Patient responsive to questions, confused about place ("i'm at the [facility]") and time (believes [facility] president). Denies pain, no other complaints/ concerns. VSS, poor O2 stats on RA. Objective: General- Well appearing, nAD, A not oriented resting in bed MSK- + DF/PF b/l, neg homans sign, dressing intact, no drainage noted, incision c/d/i, PT 2+ b/l, moderate edema b/l LEs Vital Signs Temp 97.5 F 05/23/17 11:15 Pulse 65 05/23/17 11:15 Resp 18 05/23/17 11:15 BP 114/41 05/23/17 11:15 Pulse Ox 98 05/23/17 11:15 Intake & Output 05/22/17 05/23/17 05/23/17 18:59 06:59 18:59 Intake Total 560 660 250 Balance 560 660 250 Weight 112.128 kg Intake: Oral 560 660 250 Other: Estimated Void Large Large # Bowel Movements 1 Estimated Stool Amount Small # Voids 2 2 Assessment: Stable 77 y/o male s/p R DORON orthopedically with multiple medical co- morbidities. Plan: - Continued abnoraml labs, ABGs with ALkalosis- Patient under hospitalist service, will continue to monitor and clear when able to go to SNF - SNF bed- currently accepted at [facility] - Continue PT, OOB as much as possible - Active Medications Generic Name Dose Route Start Last Admin Trade Name Freq PRN Reason Stop Dose Admin Acetaminophen 650 mg 05/15/17 14:49 05/19/17 14:00 Tylenol Tab* PO 650 mg Q4H PRN Administration FEVER/PAIN Allopurinol 200 mg 05/16/17 09:00 05/23/17 08:24 Zyloprim Tab* PO 200 mg QAM PUSHPA Administration Bisacodyl 10 mg 05/15/17 14:49 Dulcolax Supp* [place] DAILY PRN constipation Carbidopa/Levodopa 1.5 tab 05/16/17 11:30 05/23/17 08:24 Sinemet 25/100 Tab(*) PO 1.5 tab TID AC PUSHPA Administration Dabigatran 150 mg 05/20/17 09:00 05/23/17 08:23 Pradaxa Cap(Nf) PO 150 mg BID PUSHPA Administration Dextrose 25 gm 05/16/17 18:50 05/16/17 20:37 D50w Syringe 50 Ml* IV PUSH 25 gm ONCE PRN Administration FS < 60 Divalproex Sodium 1,500 mg 05/15/17 21:00 05/22/17 21:[address] Tab(*) PO 1,500 mg BEDTIME PUSHPA Administration Docusate Sodium 100 mg 05/15/17 21:00 05/23/17 08:24 Colace Cap* PO 100 mg BID PUSHPA Administration Duloxetine HCl 30 mg 05/23/17 10:04 Cymbalta Cap* PO QAM PUSHPA Magnesium Hydroxide 30 ml 05/15/17 21:00 05/23/17 08:24 Milk Of Magnesia Liq* PO Not Given BID PUSHPA Metoprolol Tartrate 125 mg 05/16/17 09:00 05/23/17 08:23 Lopressor Tab* PO 125 mg QAM PUSHPA Administration Multivitamins 1 tab 05/16/17 09:00 05/23/17 08:24 Theragran Tab* PO 1 tab DAILY PUSHPA Administration Pto: Propafenone Er 1 admin 05/16/17 09:00 05/23/17 08:24 425 Cap PO 1 admin BID PUSHPA Administration Ondansetron HCl 4 mg 05/16/17 06:00 Zofran Inj* IV Q6H PRN nausea Polyethylene Glycol/Electrolytes 17 gm 05/15/17 14:49 Miralax* PO DAILY PRN Constipation
--- NOTE | 2017-05-23 16:35 | PN ---
Subjective Date of Service: 05/23/17 Interval History: Mr. Dewitt's mental status has waxed and waned today. On follow up this afternoon, he is appropriate and visiting with multiple family members. He reports pain to his right wrist but denies other complaint including chest pain , SOB, nasuea, or abdominal pain. Family History: Unchanged from Admission Social History: Unchanged from Admission Past Medical History: Unchanged from Admission Objective Active Medications: Acetaminophen (Tylenol Tab*) 650 mg PO Q4H PRN Allopurinol (Zyloprim Tab*) 200 mg PO QAM PUSHPA Bisacodyl (Dulcolax Supp*) [address] DAILY PRN Carbidopa/Levodopa (Sinemet 25/100 Tab(*)) 1.5 tab PO TID AC PUSHPA Dabigatran (Pradaxa Cap(Nf)) 150 mg PO BID PUSHPA Dextrose (D50w Syringe 50 Ml*) 25 gm IV PUSH ONCE PRN Divalproex Sodium (Depakote Dr Tab(*)) 1,500 mg PO BEDTIME PUSHPA Docusate Sodium (Colace Cap*) 100 mg PO BID PUSHPA Duloxetine HCl (Cymbalta Cap*) 30 mg PO QAM PUSHPA Cefazolin Sodium 1 gm/ Sodium (Chloride) 50 mls @ 200 mls/hr IVPB Q8H PUSHPA Magnesium Hydroxide (Milk Of Magnesia Liq*) 30 ml PO BID PUSHPA Metoprolol Tartrate (Lopressor Tab*) 125 mg PO QAM PUSHPA Multivitamins (Theragran Tab*) 1 tab PO DAILY PUSHPA Pto: Propafenone Er (425 Cap) 1 admin PO BID PUSHPA Ondansetron HCl (Zofran Inj*) 4 mg IV Q6H PRN Polyethylene Glycol/Electrolytes (Miralax*) 17 gm PO DAILY PRN Vital Signs: Temp Pulse Resp BP Pulse Ox 97.5 F 65 18 114/41 98 05/23/17 11:15 05/23/17 11:15 05/23/17 11:15 05/23/17 11:15 05/23/17 11:15 Oxygen Devices in Use Now: Nasal Cannula, Other - Intermittent O2 needs, primarily at night Appearance: Elderly male sitting up in chair in NAD Eyes: No Scleral Icterus Ears/Nose/Mouth/Throat: NL Teeth, Lips, Gums Respiratory: Symmetrical Chest Expansion and Respiratory Effort, Clear to Auscultation Cardiovascular: NL Sounds; No Murmurs; No JVD, - - + 2 edema in R hand and in R leg, no significant edema otherwise Abdominal: NL Sounds; No Tenderness; No Distention Extremities: - - see above Skin: No Rash or Ulcers Neurological: Alert and Oriented x 3, - - +4 strength Nutrition: Taking PO's Result Diagrams: 05/23/17 06:55 05/23/17 06:55 Microbiology and Other Data: . Assess/Plan/Problems-Billing Assessment: Mr. Dewitt is a 77yo male with a PMH significant for Parkinson's, HTN, HLD, seizure disorder, and paroxysmal Atrial Fibrillation who is POD #5 from a RTHA. Patient had GLORIA and hyperkalemia which are now resolved. - Patient Problems (1) Weakness Comment: - Symptoms wax and wane, patient has been better in the afternoons. - Appreciate neurology input, suspect related to delirium. Not likely due to parkinson's. (2) Delirium Comment: - Waxes and wanes. - Patient showing signs of delirium with fluctuating mental status, hypoactivity , and significant risk factors including immobilization, hospitalization, and narcotic pain medication. No other cause identified. Underlying dementia with a MOCA of 18/30 at most recent neurologist appointment. - Stopped oxycodone, tramadol available prn. Reduced cymbalta. (3) Leukocytosis Comment: - WBC rising but CRP falling, afebrile. - Recheck in AM and continue to monitor for active infection. Could be related to wrist cellulitis. Will check procalcitonin. (4) Elevated C-reactive protein (CRP) Comment: - Resolving. - Unknown etiology but suspect secondary to surgery. WBC count decreasing, afebrile, urine culture negative, CXR shows no infiltrate. Surgical incision shows no signs of infection. Possibly due to surgery. Will actively monitor for signs of infection and treat if indicated. (5) Edema Comment: - Continued edema though primarily in R (operative) leg. - Patient now with CONTRACTION ALKALOSIS secondary to diuretic therapy. - Recommend to elevate R U and LE at all times. (6) Hypoxia Comment: - Appears to primarily be noted at night, suspect related to MICHAEL. - CXR shows low lung volumes without infiltrate. B/L pleural effusions. CTA negative. (7) Right wrist pain Comment: - Suspect secondary to cellulitis and edema related to IV and fluids. - Wrist xray negative. - IV site moved, started cefazolin. (8) Hypothyroidism Comment: - TSH 3, no thyroid replacement therapy indicated. (9) Lower extremity deep venous thrombosis Comment: - Possible small bilateral non-obstructing DVTs. - Continue pradaxa. (10) Status post total hip replacement, right Comment: - No acute issues identified per ortho, ok for discharge from their perspective. (11) GLORIA (acute kidney injury) Comment: - Resolved. (12) Anemia Comment: - Stable. - Slow decrease in H/H at 8.9 down from 15.1 preoperatively. Likely represents intraoperative blood loss and dilutional change. No signs of current bleeding. (13) Hypertension Comment: Normotensive on metoprolol, continue to hold HCTZ, amlodipine, and timolol. Will resume when clinically indicated. (14) Hypoalbuminemia Comment: Likely represents acute malnutrition, prealbumin 7. Will encourage high calorie foods and monitor. Only 1+ protein in urine. (15) MICHAEL (obstructive sleep apnea) Comment: - Not Compliant with CPAP at home. - Overnight Pulse oximetry normal on O2 therapy. - Component of CO2 retention likely contributing to encephalopathy. (16) Parkinsons disease Comment: - Signs of moderate Parkinson's, Appreciate neurology input, likely not contributing greatly to weakness. - Continue sinemet. (17) Paroxysmal A-fib Comment: - Currently in NSR. - Continue Metoprolol and Propafenone. (18) Seizure disorder Comment: - Well controlled. Continue depakote, seizure precautions. - Depakote level 51, ammonia 39 on 05/18 (19) DVT prophylaxis Comment: Pradaxa (20) Full code status Status and Disposition: Discharge to [facility] being discussed. Estimated within next 1-2 days.
[2017-05-23] MEDS: ceFAZolin 1 GM VIAL(*) 1 GM in NS 0.9% 50 ML* 50 ML IVPB SCH (16:52)
[2017-05-23] MEDS ORDERED: diPHENhydraMINE PO* 25 MG PO PRN (21:44)
[2017-05-23] MEDS: Divalproex DR TAB(*) 500 MG PO SCH (21:49)
[2017-05-24] MEDS: ceFAZolin 1 GM VIAL(*) 1 GM in NS 0.9% 50 ML* 50 ML IVPB SCH ×3 (01:08→17:02)
[2017-05-24 06:45] LABS: Hematocrit 23 % (42-52); Mean Corpuscular HGB Conc 34 g/dl (31-36); Mean Corpuscular Hemoglobin 33 pg (27-31); Mean Corpuscular Volume 98 fL (80-94); Mean Platelet Volume 7 um3 (7.4-10.4); Red Cell Distribution Width 14 % (10.5-15); White Blood Count 13.7 10^3/ul (3.5-10.8)
[2017-05-24 06:49] LABS: Comments Flag Yes
[2017-05-24 06:53] LABS: BUN/Creatinine Ratio 29.9 (8-20); Calcium 7.8 mg/dL (8.6-10.3); EGFR African American 109.1 (>60); EGFR Non-African American 84.9 (>60); Potassium 3.8 mmol/L (3.5-5.0)
[2017-05-24] MEDS: Allopurinol TAB* 100 MG PO SCH (08:04)
[2017-05-24] MEDS: PROPAFENONE PO SCH ×2 (08:05→21:53)
[2017-05-24] MEDS: Carbidopa/Levodop 25/100 MG TAB(*) PO SCH ×4 (08:05→17:02)
[2017-05-24] MEDS: Metoprolol Tartrate TAB* 50 mg PO SCH (08:05)
[2017-05-24] MEDS: Vitamin THERAPEUTIC TAB PO SCH (08:05)
[2017-05-24] MEDS: DULoxetine DR CAP* 30 MG CAP.DR PO SCH (08:05)
[2017-05-24] MEDS: CMC:Dabigatran CAP(NF) 150 MG CAP PO SCH ×2 (08:05→21:53)
[2017-05-24] MEDS: Docusate CAP* 100 MG PO SCH ×2 (08:10→21:53)
[2017-05-24] MEDS: Magnesium Hydroxide LIQ* 30 ML UDC PO SCH ×2 (08:11→21:53)
[2017-05-24 09:32] LABS: Urine Bilirubin Negative (Negative); Urine Glucose Negative (Negative); Urine Nitrite Negative (Negative)
--- NOTE | 2017-05-24 09:42 | PN ---
Progress Note - Progress Note Date of Service: 05/24/17 SOAP: Subjective: Pt. is awake and alert today. Objective: RUE - wrist is swollen and ttp. Pain with movement. NVI RLE - dressing c/d/i. thigh swollen. distally +df/pf. Vital Signs: Temp Pulse Resp BP Pulse Ox 98.8 F 71 18 121/38 92 05/24/17 07:30 05/24/17 07:30 05/24/17 07:30 05/24/17 07:30 05/24/17 07:30 Laboratory Results - last 24 hr 05/24/17 05/24/17 05/24/17 05:58 05:58 05:58 WBC 13.7 H RBC 2.40 L Hgb 8.0 L Hct 23 L MCV 98 H MCH 33 H MCHC 34 RDW 14 Plt Count 329 MPV 7 L Neut % (Auto) 66.9 Lymph % (Auto) 17.[address] [place] % (Auto) 13.0 H Eos % (Auto) 2.6 Baso % (Auto) 0.3 Absolute Neuts (auto) 9.2 H Absolute Lymphs (auto) 2.4 Absolute Monos (auto) 1.8 H Absolute Eos (auto) 0.4 Absolute Basos (auto) 0 Absolute Nucleated RBC 0.01 Nucleated RBC % 0.1 Sodium 133 Potassium 3.8 Chloride 94 L Carbon Dioxide 36 H Anion Gap 3 BUN 26 H Creatinine 0.87 Est GFR ( Amer) 109.1 Est GFR (Non-Af Amer) 84.9 BUN/Creatinine Ratio 29.9 H Glucose 95 Calcium 7.8 L Procalcitonin 0.2 Urine Color Urine Appearance Urine pH Ur Specific [place] Urine Protein Urine Ketones Urine Blood Urine Nitrate Urine Bilirubin Urine Urobilinogen Ur Leukocyte Esterase Urine Glucose Urine Ascorbic Acid Blood Type Antibody Screen Crossmatch 05/24/17 05/24/17 05:58 09:00 WBC RBC Hgb Hct MCV MCH MCHC RDW Plt Count MPV Neut % (Auto) Lymph % (Auto) [place] % (Auto) Eos % (Auto) Baso % (Auto) Absolute Neuts (auto) Absolute Lymphs (auto) Absolute Monos (auto) Absolute Eos (auto) Absolute Basos (auto) Absolute Nucleated RBC Nucleated RBC % Sodium Potassium Chloride Carbon Dioxide Anion Gap BUN Creatinine Est GFR ( Amer) Est GFR (Non-Af Amer) BUN/Creatinine Ratio Glucose Calcium Procalcitonin Urine Color Yellow Urine Appearance Clear Urine pH 7.0 Ur Specific [place] 1.017 Urine Protein Negative Urine Ketones Trace H Urine Blood Negative Urine Nitrate Negative Urine Bilirubin Negative Urine Urobilinogen Negative Ur Leukocyte Esterase Negative Urine Glucose Negative Urine Ascorbic Acid * H Blood Type O Positive Antibody Screen Negative Crossmatch See Detail Assessment: 77 yo M s/p LTHA- postop course complicated with renal insuff, lab abnormalities , generalized weakness and delirium Plan: appreciate hospitalist care R wrist - will order removable splint for immobilization. xrays show advanced OA RLE - wbat PT/OT plan d/c to snf when medically stable
--- NOTE | 2017-05-24 15:59 | PN ---
Subjective Date of Service: 05/24/17 Interval History: Mr. Dewitt is more lethargic today on examination. He does awaken and follow commands. He asks to be left alone and is annoyed with questioning. He only seems to complain of pain to his right wrist. Family History: Unchanged from Admission Social History: Unchanged from Admission Past Medical History: Unchanged from Admission Objective Active Medications: Acetaminophen (Tylenol Tab*) 650 mg PO Q4H PRN Allopurinol (Zyloprim Tab*) 200 mg PO QAM PUSHPA Bisacodyl (Dulcolax Supp*) 10 mg NM DAILY PRN Carbidopa/Levodopa (Sinemet 25/100 Tab(*)) 1.5 tab PO TID AC PUSHPA Dabigatran (Pradaxa Cap(Nf)) 150 mg PO BID PUSHPA Dextrose (D50w Syringe 50 Ml*) 25 gm IV PUSH ONCE PRN Diphenhydramine HCl (Benadryl Po*) 25 mg PO BEDTIME PRN Divalproex Sodium (Depakote Dr Tab(*)) 1,500 mg PO BEDTIME PUSHPA Docusate Sodium (Colace Cap*) 100 mg PO BID PUSHPA Duloxetine HCl (Cymbalta Cap*) 30 mg PO QAM PUSHPA Cefazolin Sodium 1 gm/ Sodium (Chloride) 50 mls @ 200 mls/hr IVPB Q8H PUSHPA Magnesium Hydroxide (Milk Of Magnesia Liq*) 30 ml PO BID PUSHPA Metoprolol Tartrate (Lopressor Tab*) 125 mg PO QAM PUSHPA Multivitamins (Theragran Tab*) 1 tab PO DAILY PUSHPA Pto: Propafenone Er (425 Cap) 1 admin PO BID PUSHPA Ondansetron HCl (Zofran Inj*) 4 mg IV Q6H PRN Polyethylene Glycol/Electrolytes (Miralax*) 17 gm PO DAILY PRN Tramadol HCl (Ultram*) 50 mg PO Q8H PRN Vital Signs: Temp Pulse Resp BP Pulse Ox 98.6 F 65 16 117/34 98 05/24/17 15:30 05/24/17 15:30 05/24/17 15:30 05/24/17 15:30 05/24/17 15:50 Oxygen Devices in Use Now: Nasal Cannula Appearance: Elderly male lying in bed in NAD Eyes: No Scleral Icterus Ears/Nose/Mouth/Throat: Mucous Membranes Moist Neck: Trachea Midline Respiratory: Symmetrical Chest Expansion and Respiratory Effort, Clear to Auscultation Cardiovascular: NL Sounds; No Murmurs; No JVD, - - +3 edema to R LE, +2 to L LE , +2 to R UE, +1 LUE Abdominal: NL Sounds; No Tenderness; No Distention Skin: No Rash or Ulcers Neurological: - - Awakens to mild physical stimuli, follows commands, reluctant to move R hand and wrist due to pain but otherwise noted to move all extremities equally though very weakly, no facial asymmetry, speech clear Nutrition: Taking PO's Result Diagrams: 05/24/17 05:58 05/24/17 05:58 Microbiology and Other Data: . Assess/Plan/Problems-Billing Assessment: Mr. Dewitt is a 77yo male with a PMH significant for Parkinson's, HTN, HLD, seizure disorder, and paroxysmal Atrial Fibrillation who is POD #5 from a RTHA. Patient had GLORIA and hyperkalemia which are now resolved. - Patient Problems (1) Weakness Comment: - Symptoms wax and wane, though he is less interactive today. - Appreciate neurology input, suspect related to delirium. Not likely due to parkinson's. (2) Delirium Comment: - Waxes and wanes. - Patient showing signs of delirium with fluctuating mental status, hypoactivity , and significant risk factors including immobilization, hospitalization, and narcotic pain medication. No other cause identified. Underlying dementia with a MOCA of 18/30 at most recent neurologist appointment. - Stopped oxycodone, tramadol available prn. Reduced cymbalta. (3) Anemia Comment: - Stable but drifted down to 8. - Plan for one unit PRBC given patient's age and overall poor recovery thus far. (4) Leukocytosis Comment: - WBC falling again. CRP falling, afebrile. (5) Elevated C-reactive protein (CRP) Comment: - Resolving. - Unknown etiology but suspect secondary to surgery. WBC count decreasing, afebrile, urine culture negative, CXR shows no infiltrate. Surgical incision shows no signs of infection. Possibly due to surgery. Will actively monitor for signs of infection and treat if indicated. (6) Edema Comment: - Continued edema though primarily in R (operative) leg. - Patient now with CONTRACTION ALKALOSIS secondary to diuretic therapy. - Recommend to elevate R U and LE at all times. - Likely driven by patient's very low protein stores, nutrition consult ordered , protein shakes provided at meals. (7) Hypoxia Comment: - Pt with 2L NC requirement. - CXR shows low lung volumes without infiltrate. B/L pleural effusions. CTA negative. - Recommend mobility and incentive spirometry. (8) Right wrist pain Comment: - Appreciate ortho assessing wrist, question osteoarthritis. I also question if it could be gout based on severity of pain even to light touch and history of gout, will start colchicine. Could also be secondary to cellulitis and edema related to IV and fluids, continue cefazolin for now. - Wrist xray negative. (9) Hypothyroidism Comment: - TSH 3, no thyroid replacement therapy indicated. (10) Lower extremity deep venous thrombosis Comment: - Possible small bilateral non-obstructing DVTs. - Continue pradaxa. (11) Status post total hip replacement, right Comment: - No acute issues identified per ortho, ok for discharge from their perspective. (12) GLORIA (acute kidney injury) Comment: - Resolved. (13) Hypertension Comment: - Normotensive. - Continue metoprolol, continue to hold HCTZ, amlodipine, and timolol. Will resume when clinically indicated. (14) Hypoalbuminemia Comment: - Likely represents acute malnutrition, prealbumin 7, family confirm signs of depression. Will encourage high calorie foods and monitor. Only 1+ protein in urine. (15) MICHAEL (obstructive sleep apnea) Comment: - Not Compliant with CPAP at home. - Overnight Pulse oximetry normal on O2 therapy. - Component of CO2 retention likely contributing to encephalopathy. (16) Parkinsons disease Comment: - Signs of moderate Parkinson's, Appreciate neurology input, likely not contributing greatly to weakness. - Continue sinemet. (17) Paroxysmal A-fib Comment: - Currently in NSR. - Continue Metoprolol and Propafenone. (18) Seizure disorder Comment: - Well controlled. Continue depakote, seizure precautions. - Depakote level 51, ammonia 39 on 05/18 (19) DVT prophylaxis Comment: - Pradaxa (20) Full code status Status and Disposition: Discharge to [facility] being discussed.
[2017-05-24] MEDS ORDERED: Colchicine* 0.6 MG TAB PO SCH (16:00)
[2017-05-24] MEDS: traMADol TAB* 50 MG PO PRN (17:02)
[2017-05-24] MEDS: Divalproex DR TAB(*) 500 MG PO SCH (21:52)
[2017-05-25] MEDS: ceFAZolin 1 GM VIAL(*) 1 GM in NS 0.9% 50 ML* 50 ML IVPB SCH ×3 (01:09→16:37)
[2017-05-25] MEDS: traMADol TAB* 50 MG PO PRN ×2 (03:31→22:11)
[2017-05-25 05:50] LABS: Hematocrit 26 % (42-52); Hemoglobin 8.6 g/dl (14.0-18.0)
[2017-05-25] MEDS: Carbidopa/Levodop 25/100 MG TAB(*) PO SCH ×3 (07:19→16:37)
[2017-05-25] MEDS: Magnesium Hydroxide LIQ* 30 ML UDC PO SCH ×2 (08:29→22:08)
[2017-05-25] MEDS: Docusate CAP* 100 MG PO SCH ×2 (08:29→22:07)
[2017-05-25] MEDS: DULoxetine DR CAP* 30 MG CAP.DR PO SCH (09:43)
[2017-05-25] MEDS: Allopurinol TAB* 100 MG PO SCH (09:43)
[2017-05-25] MEDS: Colchicine* 0.6 MG TAB PO SCH ×2 (09:44→22:11)
[2017-05-25] MEDS: PROPAFENONE PO SCH ×2 (09:44→22:11)
[2017-05-25] MEDS: CMC:Dabigatran CAP(NF) 150 MG CAP PO SCH ×2 (09:44→22:11)
[2017-05-25] MEDS: Vitamin THERAPEUTIC TAB PO SCH (09:54)
[2017-05-25] MEDS: Metoprolol Tartrate TAB* 50 mg PO SCH (09:54)
--- NOTE | 2017-05-25 11:28 | PN ---
Subjective Date of Service: 05/25/17 Interval History: Mr. Dewitt is doing ok today. He is a bit drowsy but reponds to questions appropriately. He is able to move his right hand and wrist with a little less pain. There seems to be some improvement in his edema. He denies other complaint. Family History: Unchanged from Admission Social History: Unchanged from Admission Past Medical History: Unchanged from Admission Objective Active Medications: Acetaminophen (Tylenol Tab*) 650 mg PO Q4H PRN Allopurinol (Zyloprim Tab*) 200 mg PO QAM PUSHPA Bisacodyl (Dulcolax Supp*) 10 mg VT DAILY PRN Carbidopa/Levodopa (Sinemet 25/100 Tab(*)) 1.5 tab PO TID AC PUSHPA Colchicine (Colcrys*) 0.6 mg PO BID PUSHPA Dabigatran (Pradaxa Cap(Nf)) 150 mg PO BID PUSHPA Dextrose (D50w Syringe 50 Ml*) 25 gm IV PUSH ONCE PRN Diphenhydramine HCl (Benadryl Po*) 25 mg PO BEDTIME PRN Divalproex Sodium (Depakote Dr Tab(*)) 1,500 mg PO BEDTIME PUSHPA Docusate Sodium (Colace Cap*) 100 mg PO BID PUSHPA Duloxetine HCl (Cymbalta Cap*) 30 mg PO QAM PUSHPA Cefazolin Sodium 1 gm/ Sodium (Chloride) 50 mls @ 200 mls/hr IVPB Q8H PUSHPA Magnesium Hydroxide (Milk Of Magnesia Liq*) 30 ml PO BID PUSHPA Metoprolol Tartrate (Lopressor Tab*) 125 mg PO QAM PUSHPA Multivitamins (Theragran Tab*) 1 tab PO DAILY [facility] Pto: Propafenone Er (425 Cap) 1 admin PO BID PUSHPA Ondansetron HCl (Zofran Inj*) 4 mg IV Q6H PRN Polyethylene Glycol/Electrolytes (Miralax*) 17 gm PO DAILY PRN Tramadol HCl (Ultram*) 50 mg PO Q8H PRN Vital Signs: Temp Pulse Resp BP Pulse Ox 99.7 F 70 22 128/43 96 05/25/17 07:23 05/25/17 07:23 05/25/17 07:23 05/25/17 07:23 05/25/17 07:23 Oxygen Devices in Use Now: Nasal Cannula Appearance: Male sitting up in chair in NAD Eyes: No Scleral Icterus Ears/Nose/Mouth/Throat: Mucous Membranes Moist Neck: Trachea Midline Respiratory: Symmetrical Chest Expansion and Respiratory Effort, Clear to Auscultation Cardiovascular: NL Sounds; No Murmurs; No JVD, - - +3 edema, R > L Abdominal: NL Sounds; No Tenderness; No Distention Lymphatic: No Cervical Adenopathy Skin: No Rash or Ulcers Neurological: - - Awakens easily to voice, answers questions appropriately, moves all extremities weakly Nutrition: Taking PO's Result Diagrams: 05/25/17 05:05 05/24/17 05:58 Microbiology and Other Data: . Assess/Plan/Problems-Billing Assessment: Mr. Dewitt is a 77yo male with a PMH significant for Parkinson's, HTN, HLD, seizure disorder, and paroxysmal Atrial Fibrillation who is POD #5 from a RTHA. Patient had GLORIA and hyperkalemia which are now resolved. - Patient Problems (1) Weakness Comment: - Symptoms continue to wax and wane, but he remains very weak, uses EZ stand for transfers. - Appreciate neurology input, suspect related to delirium. Not likely due to parkinson's. (2) Delirium Comment: - Waxes and wanes. - Patient showing signs of delirium with fluctuating mental status, hypoactivity , and significant risk factors including immobilization, hospitalization, and narcotic pain medication. No other cause identified. Underlying dementia with a MOCA of 18/30 at most recent neurologist appointment. - Stopped oxycodone, tramadol available prn. Reduced cymbalta. (3) Anemia Comment: - Hgb responded approproiately to one unit PRBC given yesterday. Now 8.6. - Secondary to acute blood loss after hip surgery. (4) Leukocytosis Comment: - WBC falling again. CRP falling, afebrile. - Recheck in AM. (5) Elevated C-reactive protein (CRP) Comment: - Resolving. - Suspect secondary to surgery. WBC count decreasing, afebrile, urine culture negative, CXR shows no infiltrate. Surgical incision shows no signs of infection. Possibly due to surgery. - Treating for possible cellulitis to right wrist. (6) Edema Comment: - Continued edema though primarily in R (operative) leg. - Patient developed contraction alkalosis secondary to diuretic therapy. - Recommend to elevate R U and LE at all times. - Likely driven by patient's very low protein stores, nutrition consult ordered , protein shakes provided at meals. (7) Hypoxia Comment: - Pt with 2L NC requirement. - CXR shows low lung volumes without infiltrate. B/L pleural effusions. CTA negative. - Recommend mobility and incentive spirometry. (8) Right wrist pain Comment: - Appreciate ortho assessing wrist, question osteoarthritis. I also question if it could be gout based on severity of pain even to light touch and history of gout, will continue colchicine. Could also be secondary to cellulitis and edema related to IV site and fluids, continue cefazolin for now. - Wrist xray negative. (9) Hypothyroidism Comment: - TSH 3, no thyroid replacement therapy indicated. (10) Lower extremity deep venous thrombosis Comment: - Possible small bilateral non-obstructing DVTs. - Continue pradaxa. (11) Status post total hip replacement, right Comment: - No acute issues identified per ortho, ok for discharge from their perspective. (12) GLORIA (acute kidney injury) Comment: - Resolved. (13) Hypertension Comment: - Normotensive. - Continue metoprolol, continue to hold HCTZ, amlodipine, and timolol. Will resume when clinically indicated. (14) Hypoalbuminemia Comment: - Acute malnutrition, prealbumin 7, family confirm signs of depression. Will encourage high calorie foods and monitor. Only 1+ protein in urine. (15) MICHAEL (obstructive sleep apnea) Comment: - Not Compliant with CPAP at home. - Overnight Pulse oximetry normal on O2 therapy. (16) Parkinsons disease Comment: - Signs of moderate Parkinson's, Appreciate neurology input, likely not contributing greatly to weakness. - Continue sinemet. (17) Paroxysmal A-fib Comment: - Currently in NSR. - Continue Metoprolol and Propafenone. (18) Seizure disorder Comment: - Well controlled. Continue depakote, seizure precautions. - Depakote level 51, ammonia 39 on 05/18 (19) DVT prophylaxis Comment: - Pradaxa (20) Full code status Status and Disposition: Discharge to [facility], likely 05/26/17 if medically stable.
--- NOTE | 2017-05-25 12:53 | PN ---
Progress Note - Progress Note Date of Service: 05/25/17 SOAP: Subjective: Pt. is alert, son at bedside. Reports R wrist is painful. Objective: RUE - wrist with edema. nvi. RLE l- distally +df/pf, inc c/d/i. Vital Signs: Temp Pulse Resp BP Pulse Ox 98.0 F 66 20 113/42 93 05/25/17 11:39 05/25/17 11:39 05/25/17 11:39 05/25/17 11:39 05/25/17 11:39 Laboratory Results - last 24 hr 05/24/17 05/25/17 05:58 05:05 Hgb 8.6 L Hct 26 L Blood Type O Positive Antibody Screen Negative Crossmatch See Detail Assessment: 77 yo M s/p RTHA with postop complications - including gm, delirium, weakness. Plan: wbat rue/rle oobtc pt/ot plan snf tomorrow
[2017-05-25] MEDS: Divalproex DR TAB(*) 500 MG PO SCH (22:10)
[2017-05-26] MEDS: ceFAZolin 1 GM VIAL(*) 1 GM in NS 0.9% 50 ML* 50 ML IVPB SCH ×2 (01:25→09:00)
[2017-05-26 05:32] LABS: Hematocrit 25 % (42-52); Hemoglobin 8.6 g/dl (14.0-18.0); Mean Corpuscular HGB Conc 34 g/dl (31-36); Mean Corpuscular Hemoglobin 32 pg (27-31); Mean Corpuscular Volume 96 fL (80-94); Mean Platelet Volume 7 um3 (7.4-10.4); Red Blood Count 2.66 10^6/ul (4.0-5.4); Red Cell Distribution Width 15 % (10.5-15); White Blood Count 14.6 10^3/ul (3.5-10.8)
[2017-05-26 05:33] LABS: Add Diff/Slide Review? Slide Review Added; Comments Flag Yes
[2017-05-26] MEDS: PROPAFENONE PO SCH (09:00)
[2017-05-26] MEDS: Metoprolol Tartrate TAB* 50 mg PO SCH (09:00)
[2017-05-26] MEDS: DULoxetine DR CAP* 30 MG CAP.DR PO SCH (09:01)
[2017-05-26] MEDS: Carbidopa/Levodop 25/100 MG TAB(*) PO SCH ×2 (09:01→11:17)
[2017-05-26] MEDS: Allopurinol TAB* 100 MG PO SCH (09:02)
[2017-05-26] MEDS: CMC:Dabigatran CAP(NF) 150 MG CAP PO SCH (09:02)
[2017-05-26] MEDS: Vitamin THERAPEUTIC TAB PO SCH (09:02)
[2017-05-26] MEDS: Colchicine* 0.6 MG TAB PO SCH (09:02)
[2017-05-26] MEDS: Docusate CAP* 100 MG PO SCH (09:02)
[2017-05-26] MEDS: Magnesium Hydroxide LIQ* 30 ML UDC PO SCH (09:04)
[2017-05-26 11:10] VITALS: BP 115/46
--- NOTE | 2017-05-26 11:43 | DS ---
CC: Dr. Avalos; Dr. Woodall; [facility] * DATE OF ADMISSION: 05/15/2017. DATE OF DISCHARGE: 05/26/2017. DISCHARGING PROVIDER: SARAH Dougherty. SUPERVISING PHYSICIAN: Dr. Moiz Johnson * (dictated by SARAH Dougherty). PRIMARY CARE PROVIDER: Dr. Graeme Schwartz. CONSULTING NEUROLOGIST: Dr. Cesar. PRIMARY NEUROLOGIST: Dr. Woodall. ORTHOPEDIC SURGEON: Dr. Avalos. PRIMARY DISCHARGE DIAGNOSES: 1. Status post right total hip arthroplasty. 2. Acute encephalopathy with postoperative delirium - resolving. 3. Postop anemia with one unit of packed red blood cells transfused 05/24/2017. 4. Right wrist pain - perhaps secondary to gouty flare or exacerbation of osteoarthritis treated empirically with Colchicine and Cefazolin. 5. Lower extremity edema - likely secondary to hypoalbuminemia and immobilization. 6. Lower extremity DVT's, small, possible bilateral nonobstructing DVT's chronically anticoagulated on Pradaxa. 7. Acute kidney injury and hypotension postoperatively - now resolved. SECONDARY DISCHARGE DIAGNOSES: 1. Hypertension. 2. Obstructive sleep apnea, noncompliant with CPAP therapy. 3. Parkinson's disease, followed by Dr. Woodall. 4. Paroxysmal A-fib which is currently rate controlled and chronically anticoagulated. 5. Seizure disorder with therapeutic Depakote levels, normal ammonia. DISCHARGE MEDICATIONS: 1. Allopurinol 200 mg p.o. daily. 2. Amlodipine 10 mg p.o. daily. 3. Sinemet 1.5 tablets p.o. 3 times daily. 4. Colchicine 0.6 mg p.o. twice daily times 7 days. 5. Pradaxa 150 mg p.o. twice daily. 6. Diphenhydramine/acetaminophen one tablet p.o. at bedtime as needed for insomnia. 7. Depakote 1500 mg p.o. at bedtime. 8. Cymbalta 60 mg p.o. daily. 9. Hydrochlorothiazide 25 mg p.o. daily. 10. Methylcellulose one tablet p.o. daily. 11. Metoprolol tartrate 125 mg p.o. daily. 12. Rythmol 425 mg p.o. twice daily. 13. Timolol 0.5% solution one drop in the right eye each evening. 14. Tramadol 50 mg p.o. q.8 hours as needed for pain. Medication changes: 1. Colchicine times 7 days. 2. Tramadol as needed. HOSPITAL COURSE: This is a 77-year-old gentleman with a known history of Parkinson's disease, as well as paroxysmal A-fib, seizure disorder, obstructive sleep apnea, hypertension, and hypothyroidism who presented to the hospital for an elective right total hip arthroplasty with Dr. Avalos on 05/15/2017. The patient's postoperative course was complicated by hypotension, acute kidney injury and delirium. The patient did have some mild to moderate postoperative anemia requiring transfusion of one unit of packed red blood cells with a hemoglobin of 8.0 at the lowest, transfused up to 8.6 at the time of discharge. The patient's acute kidney injury resolved with IV fluid, resuscitation and his creatinine is 0.8 at the time of discharge. The patient was evaluated by Neurology with his postop delirium and associated diffuse weakness. Neurology suggested checking ammonia levels due to his chronic Depakote therapy which are within normal limits and checking serum Depakote levels which were therapeutic. Imaging of his brain showed no acute process. The patient's opiate use was limited and his mental status improved slowly throughout his hospital stay and was not quite back to baseline, but near at the time of discharge. The patient was noted to have significant lower extremity edema. Lower extremity Doppler was completed which showed a questionable nonocclusive thrombus involving the peroneal veins bilaterally, but no evidence of femoral popliteal DVT's. A CTA of his chest was also completed to evaluate for PE as he was mildly hypoxic. There was no evidence of PE appreciated on CTA. The patient was previously anticoagulated with Pradaxa which had been interrupted briefly for his surgery and subsequently reinitiated. His lower extremity edema was thought to be more likely due to the IV fluids that he received and associated hypoalbuminemia. The patient was complaining of right wrist pain without known associated trauma. He underwent x-rays of the wrist which showed some osteoarthritis, but no other acute changes. His wrist was evaluated by Orthopedic Surgery. There was questions as to whether he had an associated cellulitis versus a gouty flare versus exacerbation of his osteoarthritis. He was empirically treated with Colchicine and Cefazolin with limited improvement in his wrist. He is still complaining of some pain and limited range of motion at the time of discharge. DISPOSITION AND FOLLOW-UP PLAN: The patient is being discharged to [facility] for subacute rehab. He has generalized weakness. Pain at surgical sites is well-controlled with rare use of Tramadol. He is still complaining of right wrist pain and has some intermittent confusion, although seems to be well-oriented at the time of discharge exam. He requires follow-up with Dr. Avalos in approximately one week. This appointment has been made for him on his behalf for the 02 of June at 1:[address] Avalos's office. Recommend follow-up with his primary care provider following discharge from [facility]. SARAH DOUGHERTY [id number]/CPS #: [id number] RADHA
--- NOTE | 2017-05-26 14:35 | PN ---
Progress Note - Progress Note Date of Service: 05/26/17 SOAP: Subjective: []Patient seen at bedside. He denies hip pain, SOB, chest pain or leg numbness. Objective: [] Vital Signs Temp 98.1 F 05/26/17 11:05 Pulse 63 05/26/17 11:05 Resp 16 05/26/17 11:05 BP 115/46 05/26/17 11:05 Pulse Ox 100 05/26/17 11:05 Intake & Output 05/25/17 05/26/17 05/26/17 18:59 06:59 18:59 Intake Total 1443 715 220 Output Total 0 0 Balance 1443 715 220 Weight 248 lb 9.6 oz Intake: IV Fluids 45 30 30 ABX - CEFAZOLIN 45 30 30 IVPB 58 55 70 ABX - CEFAZOLIN 58 55 70 Oral 1340 630 120 Output: Urine 0 0 Other: Estimated Void Large Small # Bowel Movements 1 Estimated Stool Amount Small Small # Voids 2 1 Laboratory Last Values WBC 14.6 10^3/ul (3.5-10.8) H 05/26/17 05:24 RBC 2.66 10^6/ul (4.0-5.4) L 05/26/17 05:24 Hgb 8.6 g/dl (14.0-18.0) L 05/26/17 05:24 Hct 25 % (42-52) L 05/26/17 05:24 MCV 96 fL (80-94) H 05/26/17 05:24 MCH 32 pg (27-31) H 05/26/17 05:24 MCHC 34 g/dl (31-36) 05/26/17 05:24 RDW 15 % (10.5-15) 05/26/17 05:24 Plt Count 446 10^3/ul (150-450) 05/26/17 05:24 MPV 7 um3 (7.4-10.4) L 05/26/17 05:24 Immature Gran % (Auto) 12 % (0-9) H 05/16/17 16:10 Neut % (Auto) 64.1 % (38-83) 05/26/17 05:24 Lymph % (Auto) 17.2 % (25-47) L 05/26/17 05:24 [place] % (Auto) 13.6 % (1-9) H 05/26/17 05:24 Eos % (Auto) 4.2 % (0-6) 05/26/17 05:24 Baso % (Auto) 0.9 % (0-2) 05/26/17 05:24 Absolute Neuts (auto) 9.4 10^3/ul (1.5-7.7) H 05/26/17 05:24 Absolute Lymphs (auto) 2.5 10^3/ul (1.0-4.8) 05/26/17 05:24 Absolute Monos (auto) 2.0 10^3/ul (0-0.8) H 05/26/17 05:24 Absolute Eos (auto) 0.6 10^3/ul (0-0.6) 05/26/17 05:24 Absolute Basos (auto) 0.1 10^3/ul (0-0.2) 05/26/17 05:24 Absolute Nucleated RBC 0 10^3/ul 05/26/17 05:24 Neutrophils % 63 % (38-83) 05/16/17 16:10 Band Neutrophils % 12 % (0-8) H 05/16/17 16:10 Lymphocytes % 8 % (25-47) L 05/16/17 16:10 Monocytes % 15 % (0-13) H 05/16/17 16:10 Eosinophils % 1 % (0-6) 05/16/17 16:10 Basophils % 1 % (0-2) 05/16/17 16:10 Nucleated RBC % 0 05/26/17 05:24 Normal RBC Morphology Not Reportable 05/16/17 16:10 Basophilic Stippling 1+ 05/16/17 16:10 Macrocytosis 1+ 05/16/17 16:10 INR (Anticoag Therapy) 1.16 (0.89-1.11) H 05/16/17 09:14 APTT 31.4 seconds (26.0-36.3) 05/15/17 10:36 Patient Temperature Not Reportable 05/23/17 09:10 ABG pH 7.51 (7.35-7.45) H 05/23/17 09:10 ABG pH (Temp Correct) Not Reportable 05/23/17 09:10 ABG pCO2 48 mmHg (35-45) H 05/23/17 09:10 ABG pCO2 (Temp Corrct Not Reportable 05/23/17 09:10 ABG pO2 75 mmHg (80-100) L 05/23/17 09:10 ABG pO2 (Temp Correct Not Reportable 05/23/17 09:10 ABG HCO3 35.5 mmol/L (19-31) H 05/23/17 09:10 ABG O2 Saturation 97.3 % (95-98) 05/23/17 09:10 ABG Base Excess 13.7 (-2.0-2.0) H 05/23/17 09:10 Respiration Rate Not Reportable 05/23/17 09:10 O2 Delivery Device nasal cannula 05/23/17 09:10 Ventilator Type Not Reportable 05/23/17 09:10 Vent Mode Not Reportable 05/23/17 09:10 FiO2 2 05/23/17 09:10 Inspiratory Time Not Reportable 05/23/17 09:10 PEEP Not Reportable 05/23/17 09:10 Pressure Support Not Reportable 05/23/17 09:10 Pressure Control Not Reportable 05/23/17 09:10 EPAP Not Reportable 05/23/17 09:10 IPAP Not Reportable 05/23/17 09:10 BiPAP Not Reportable 05/23/17 09:10 Sodium 133 mmol/L (133-145) 05/24/17 05:58 Potassium 3.8 mmol/L (3.5-5.0) 05/24/17 05:58 Chloride 94 mmol/L (101-111) L 05/24/17 05:58 Carbon Dioxide 36 mmol/L (22-32) H 05/24/17 05:58 Anion Gap 3 mmol/L (2-11) 05/24/17 05:58 BUN 26 mg/dL (6-24) H 05/24/17 05:58 Creatinine 0.87 mg/dL (0.67-1.17) 05/24/17 05:58 Est GFR ( Amer) 109.1 (>60) 05/24/17 05:58 Est GFR (Non-Af Amer) 84.9 (>60) 05/24/17 05:58 BUN/Creatinine Ratio 29.9 (8-20) H 05/24/17 05:58 Glucose 95 mg/dL (70-100) 05/24/17 05:58 POC Glucose (mg/dL) 131 mg/dL (70-100) H 05/17/17 00:45 Calcium 7.8 mg/dL (8.6-10.3) L 05/24/17 05:58 Magnesium 2.1 mg/dL (1.9-2.7) 05/21/17 06:42 Total Bilirubin 0.50 mg/dL (0.2-1.0) 05/21/17 06:42 AST 25 U/L (13-39) 05/21/17 06:42 ALT 17 U/L (7-52) 05/21/17 06:42 Alkaline Phosphatase 208 U/L (34-104) H 05/21/17 06:42 Ammonia 39 mol/L (16-53) 05/18/17 16:39 Total Creatine Kinase 54 U/L (10-223) 05/20/17 05:51 C-Reactive Protein 126.29 mg/L (< 5.00) H 05/22/17 05:15 Total Protein 4.8 g/dL (6.4-8.9) L 05/21/17 06:42 Albumin 2.3 g/dL (3.2-5.2) L 05/21/17 06:42 Globulin 2.5 g/dL (2-4) 05/21/17 06:42 Albumin/Globulin Ratio 0.9 (1-3) L 05/21/17 06:42 Prealbumin 7 mg/dL (18-38) L 05/19/17 05:52 Vitamin B12 542 pg/mL (180-914) 05/18/17 16:39 Procalcitonin 0.2 ng/mL (<0.6) 05/24/17 05:58 TSH 3.80 mcIU/mL (0.34-5.60) 05/21/17 06:42 Thyroxine (T4) 4.33 mcg/mL (6.09-12.23) L 05/21/17 06:42 Total T3 0.40 ng/mL (0.87-1.78) L 05/21/17 06:42 Urine Color Yellow 05/24/17 09:00 Urine Appearance Clear 05/24/17 09:00 Urine pH 7.0 (5-9) 05/24/17 09:00 Ur Specific [place] 1.017 (1.010-1.030) 05/24/17 09:00 Urine Protein Negative (Negative) 05/24/17 09:00 Urine Ketones Trace (Negative) H 05/24/17 09:00 Urine Blood Negative (Negative) 05/24/17 09:00 Urine Nitrate Negative (Negative) 05/24/17 09:00 Urine Bilirubin Negative (Negative) 05/24/17 09:00 Urine Urobilinogen Negative (Negative) 05/24/17 09:00 Ur Leukocyte Esterase Negative (Negative) 05/24/17 09:00 Urine WBC (Auto) 3+(>20/hpf) (Absent) H 05/16/17 18:30 Urine RBC (Auto) 3+(>10/hpf) (Absent) H 05/16/17 18:30 Urine Bacteria Absent (Absent) 05/16/17 18:30 Ur Random Creatinine 351.06 mg/dL 05/16/17 14:15 Ur Random Sodium < 18 mmol/L 05/16/17 14:15 Urine Glucose Negative (Negative) 05/24/17 09:00 Urine Ascorbic Acid * (Negative) H 05/24/17 09:00 Valproic Acid 51.0 mcg/mL (50-100) 05/18/17 16:39 Blood Type O Positive 05/24/17 05:58 Antibody Screen Negative 05/24/17 05:58 Crossmatch See Detail 05/24/17 05:58 General: Patient seen OOB in chair. He was calm and cooperative, in no acute distress RLE: incision CDI without erythema of wound edge. Bilateral lower extremities: 2+ edema distally, calves are nontender and nonerythematous. DF/PF intact. Assessment: []s/p right total hip arthroplasty postop complications - including gm, delirium, weakness. Plan: []WBAT DC to [facility] today Daily dressing change and PRN Pradaxa
== END 2017-05-26 12:50 | DRG 469 ==
LOC: AA 10:20 → SSU 20:24 → MEDTELE 05-16 19:09
PROVIDERS: ADMIT Orthopaedic Surgery Adult Reconstructive Orthopaedic Surgery; ATTEND Internal Medicine
PROC: 0SR904A Replacement of Right Hip Joint with Ceramic on Polyethylene Synthetic Substitute, Uncemented, Open Approach (ICD-10-PCS; principal; 2017-05-15 13:00)
PROC: 30233N1 Transfusion of Nonautologous Red Blood Cells into Peripheral Vein, Percutaneous Approach (ICD-10-PCS; 2017-05-24)
DX: M16.11 Unilateral primary osteoarthritis, right hip (principal); G93.40 Encephalopathy, unspecified; N17.9 Acute kidney failure, unspecified; J90 Pleural effusion, not elsewhere classified; E87.3 Alkalosis; F05 Delirium due to known physiological condition; I95.9 Hypotension, unspecified; E87.5 Hyperkalemia; D62 Acute posthemorrhagic anemia; L03.113 Cellulitis of right upper limb; I82.493 Acute embolism and thrombosis of other specified deep vein of lower extremity, bilateral; E83.42 Hypomagnesemia; G20 Parkinson's disease; I48.0 Paroxysmal atrial fibrillation; G40.909 Epilepsy, unspecified, not intractable, without status epilepticus; E78.5 Hyperlipidemia, unspecified; G47.33 Obstructive sleep apnea (adult) (pediatric); H40.9 Unspecified glaucoma; F11.90 Opioid use, unspecified, uncomplicated; I10 Essential (primary) hypertension; Z96.653 Presence of artificial knee joint, bilateral; M25.751 Osteophyte, right hip; R47.1 Dysarthria and anarthria; R79.89 Other specified abnormal findings of blood chemistry; R09.02 Hypoxemia; R79.82 Elevated C-reactive protein (CRP); E03.9 Hypothyroidism, unspecified; F02.80 Dementia in other diseases classified elsewhere, unspecified severity, without behavioral disturbance, psychotic disturbance, mood disturbance, and anxiety; M19.031 Primary osteoarthritis, right wrist; M10.9 Gout, unspecified; Z79.01 Long term (current) use of anticoagulants; Z90.49 Acquired absence of other specified parts of digestive tract; Z88.0 Allergy status to penicillin; Z80.3 Family history of malignant neoplasm of breast; Z80.42 Family history of malignant neoplasm of prostate; Z91.19 Patient's noncompliance with other medical treatment and regimen; Z98.49 Cataract extraction status, unspecified eye
CPT/HCPCS: 36415; 36600; 70450; 71010; 71020; 71275; 80048; 80053; 80164; 81003; 81015; 82140; 82550; 82570; 82607; 82803; 83735; 84134; 84145; 84300; 84436; 84443; 84479; 85014; 85018; 85025; 85610; 85730; 86140; 86850; 86900; 86901; 86922; 87040; 87086; 88304; 88311; 93005; 93970; 94762; A9270-GY; C1713; C1776; J0610; J0690; J1650; J1940; J2250; J2270; J3010; J3475; P9040; Q9967

== ENCOUNTER 2017-10-16 15:26 | Emergency (ER) | payer MEDICARE, BC ==
--- NOTE | 2017-10-16 16:12 | ED ---
Laceration/Wound HPI - HPI Summary HPI Summary: 77-year-old male presents with left leg laceration today. He states he is walking he struck his leg on a screw on his walker. He denies any fall. He denies any pain. He has a laceration to his left joiner that continues to bleed. He is on blood thinner but does not know which one. On blood thinner for A. fib. He has full range of motion of his leg. Believes his immunizations are up -to-date. No foreign body in the wound. has history of parkinson so decreased sensation at baseline. - History of Current Complaint Stated Complaint: LFT LEG LAC. Time Seen by Provider: 10/16/17 15:30 Pain Intensity: 0 - Additional Pertinent History Primary Care Physician: [id number] - Allergy/Home Medications Allergies/Adverse Reactions: Allergies Allergy/AdvReac Type Severity Reaction Status Date / Time Penicillins Allergy Hives Verified 10/16/17 15:28 PMH/Surg Hx/FS Hx/Imm Hx Endocrine/Hematology History: Reports: Hx Anticoagulant Therapy - aggregnox Cardiovascular History: Reports: Hx Hypercholesterolemia, Hx Hypertension, Other Cardiovascular Problems/Disorders - 2017 ANTI QUAGULATION MEDS Respiratory History: Reports: Hx Sleep Apnea - current CPAP user GI History: Reports: Hx Gall Bladder Disease, Other GI Disorders - CONSTIPATION AND DIARRHEA ISSUES IN THE PAST Musculoskeletal History: Reports: Hx Arthritis - ARTHRITIS IN KNEES AND HIPS Sensory History: Reports: Hx Cataracts, Hx Glaucoma - RIGHT, Hx Hearing Aid Denies: Hx Contacts or Glasses Opthamlomology History: Reports: Hx Cataracts, Hx Glaucoma - RIGHT Denies: Hx Contacts or Glasses Neurological History: Reports: Hx Seizures Psychiatric History: Reports: Hx Depression - ON MEDS after wifes - Surgical History Surgery Procedure, Year, and Place: cholecystectomy; bilat TKR; appendectomy; cateracts; right DORON Hx Anesthesia Reactions: No Infectious Disease History: No Infectious Disease History: Denies: Traveled Outside the [place] in Last 30 Days - Family History Known Family History: Positive: Unknown - Social History Alcohol Use: None Substance Use Type: Reports: None Smoking Status (MU): Never Smoked Tobacco Review of Systems Negative: Fever Negative: Chest Pain Negative: Shortness Of Breath Positive: Other - left leg lac All Other Systems Reviewed And Are Negative: Yes Physical Exam Triage Information Reviewed: Yes Vital Signs On Initial Exam: Initial Vitals Temp Pulse Resp BP Pulse Ox 98 F 62 16 130/56 96 10/16/17 15:27 10/16/17 15:27 10/16/17 15:27 10/16/17 15:27 10/16/17 15:27 Vital Signs Reviewed: Yes Appearance: Positive: Well-Appearing Skin: Positive: Warm, Dry, Other - 6cm by 4cm flap like skin tear Head/Face: Positive: Normal Head/Face Inspection Eyes: Positive: Normal, Conjunctiva Clear Respiratory/Lung Sounds: Positive: Clear to Auscultation, Breath Sounds Present Cardiovascular: Positive: Normal, RRR Musculoskeletal: Positive: Strength/ROM Intact - left leg, Other - good pulses, capillary refill<2 secs Neurological: Positive: Normal Psychiatric: Positive: Normal Procedures - Laceration/Wound Repair 1 Location: Other - left leg Description: Irregular Length, Depth and Shape: 6cm by 4cm flap like skin tear Irrigated w/ Saline (ccs): 500 Laceration/Wound Explored: no foreign body removed Closure: Skin Adhesive, SteriStrips Sterile Dressing Applied?: Yes - xeroform, telfa, and coband Diagnostics - Vital Signs Vital Signs Temp Pulse Resp BP Pulse Ox 10/16/17 15:27 98 F 62 16 130/56 96 - Laboratory Lab Statement: Any lab studies that have been ordered have been reviewed, and results considered in the medical decision making process. Laceration Repair Course/Dx - Course Course Of Treatment: 77-year-old male presents with left leg laceration today. He states he is walking he struck his leg on a screw on his walker. He denies any fall. He denies any pain. He has a laceration to his left joiner that continues to bleed. He is on blood thinner but does not know which one. On blood thinner for A. fib. He has full range of motion of his leg. Believes his immunizations are up-to-date. No foreign body in the wound. On exam has a 6 cm x 4 cm flap-like skin tear of left joiner. Minimal bleeding present. Cleaned area and tried to realign as best as possible and glue and steriistriped. Placed pressure dressing. Unable to suture due to thinness of skin will try through. Will have continue to placed pressure dressing on area. Patient understands agrees plan. - Differential Dx Differental Diagnoses: Abrasion, Avulsion, Laceration - Clinical Impression Provider Diagnoses: Laceration of left leg Discharge - Sign-Out/Discharge Documenting (check all that apply): Discharge - Discharge Plan Condition: Good Disposition: HOME Patient Education Materials: Skin Adhesive Care (ED) Referrals: Graeme Schwartz MD [Primary Care Provider] - Additional Instructions: Place ice on area, elevate Take Tylenol for pain as needed every 6 hours Glue will fall off on own Keep pressure dressing on area and change once a day until starts to heal Keep dry for first 48 hours Return to ED if develop any signs of infection or any new or worsening symptoms - Billing Disposition and Condition Condition: GOOD Disposition: HOME
[2017-10-16 16:20] VITALS: BP 120/57
== END 2017-10-16 16:31 | disposition home or self-care (01) ==
LOC: ED 15:26
DX: S81.812A Laceration without foreign body, left lower leg, initial encounter (principal); W22.8XXA Striking against or struck by other objects, initial encounter; Y92.9 Unspecified place or not applicable; I48.91 Unspecified atrial fibrillation; Z79.01 Long term (current) use of anticoagulants; E78.00 Pure hypercholesterolemia, unspecified; I10 Essential (primary) hypertension; G47.30 Sleep apnea, unspecified; F32.9 Major depressive disorder, single episode, unspecified; Z88.0 Allergy status to penicillin
CPT/HCPCS: 12002; 99281

== ENCOUNTER 2017-12-28 12:49 | Observation (INO) | payer MEDICARE, BC ==
[2017-12-28] MEDS ORDERED: methylPREDNISolone 125 MG* 2 ML VIAL IV ONE (14:58)
--- OUTSIDE RECORDS SUMMARY | 2017-12-28 15:19 | XMS REPORT ---
:1940 External Reference #:[id number] Author Organization [employer] Address [address] [place] [address] [place] [address] Phone [phone] Care Team Providers Name Role Phone Citlaly Riley DO Care Team Information Stave Inspector Unavailable Jeni Schwartz M.D. Primary Care Physician Unavailable Payers Type Date Identification Numbers Payment Provider Subscriber Medicare Primary Policy Number: [id number] Medicare Juju Dewitt SR Group Name: Retired [address] PayID: [id number] JUDY Coulter [id number] [facility] B Policy Number: [id number] [facility] Juju Dewitt SR Group Number: [id number] [address] Group Name: [place] [address] PayID: [id number] Problems Date Description Provider Status Onset: 04/19/2014 Obstructive sleep apnea of Pricila Altamirano DNP, RN, Active adult [employer] Onset: 07/08/2014 Obstructive sleep apnea Samantha Shipley MD Active syndrome Onset: 07/08/2014 Obesity Samantha Shipley MD Active Onset: 02/08/2015 Thoracic Aortic Ectasia Zuhair Elliott M.D., [facility], Active FASNC Onset: 03/29/2015 Restless legs Jeimy Woodall M.D. Active Onset: 03/29/2015 Parkinson's disease Jeimy Woodall M.D. Active Note: ideopathic vs. medication side effect Onset: 03/29/2015 Localization-related epilepsy Jeimy Woodall M.D. Active Onset: 07/28/2015 Localized, primary osteoarthritis of Shiela Avalos M.D. Active the pelvic region and thigh Onset: 10/19/2015 Morbid obesity Samantha Shipley MD Active Onset: 03/05/2016 Paroxysmal atrial fibrillation Zuhair Elliott M.D., Active FAC, FASNC Onset: 10/21/2016 Mild cognitive disorder Jeimy Woodall M.D. Active Note: MoCA: October 2016: (of note, admits to baseline difficulty with math) Family History Date Family Member(s) Problem(s) Comments General Prostate Cancer Mother ; pt not sure of what Social History Type Date Description Comments Marital Status Lives With Occupation Retired ETOH Use Denies alcohol use Smoking Patient is a former smoker smoked a pipe when he was 15 yrs old, for one year Recreational Drug Use Denies Drug Use Daily Caffeine soda once in a while Exercise Type/Frequency Exercises regularly Physical therapy, along with home exercises General Hx Text Allergies, Adverse Reactions, Alerts Date Description Reaction Status Severity Comments 11/10/2013 Penicillin active Medications Medication Date Status Form Strength Qnty SIG Indications Ordering Provider Carbidopa-Levodopa 10/28 Active Tablets 10-100mg tab 1 by G20 mouth three [place], times a day [employer] [employer] [facility] Acetaminophen 10/28 Active Tablets 325mg 60tab 2 tablets s by mouth [place], every 6 [facility] hours as needed for pain/fever Cymbalta 10/[address] 60mg 30cap 1 by mouth F33.9 Part s every day [place], [employer] Diphenhydramine-Ac 10/28 Active 25-500 1 tab Po Kristin etaminophen prn at hs [place], [facility] Colace 10/28 Active Capsules 100mg 90cap 1 tab by s mouth bid [place], [facility] Methylcellulose 10/28 Active 1 tab PO qd K59.00 Kristin Tablet prn [place], TURNER Vitamin D3 10/28 Active Tablets 5000Unit 90tab take 1 tab E55.9 s by mouth [place], daily [facility] Walker Mccormick 05/13 Active Misc 1-07/14" 1unit Use as Shiela Wheels/ s ivonne. Robbie, Adjustment dx: lewis SAL M.D. Holes/-07/14" Commode Bedside 05/13 Active Misc 1unit Use as s directed Robbie, dx: lewis SAL M.D. Raised Toilet Seat 04/28 Active Misc 1unit use after M25.551 s right total Robbie, hip M.D. arthroplast y Propafenone HCL ER 07/28 Active Caps ER 425mg 180ca one tab by Zuhair 12HR ps mouth every Brownlee 12 hours Too Elliott, [facility], [facility] Metoprolol 01/25 Active Tablets 100mg 90tab 1 by mouth I10 Zuhair Succinate ER 24HR s every day Kem Elliott M.D., [facility], [facility] Pradaxa 12/14 Active Capsules 150mg 180ca 1 cap by Zuhair ps mouth twice Brownlee a day Too Elliott, [facility], [facility] Depakote ER 11/12 Active Tablets 500mg 270ta take 3 ER 24HR bs tablets by Arsenio, mouth every M.D. night at bedtime Amlodipine Active Tablets 10mg 90tab 1 by mouth Unknown Besylate /0000 s every day Ascorbic Acid Active Tablets 500mg 30tab 1 by mouth Unknown /0000 s every day Allopurinol Active Tablets 100mg give 300 mg Unknown /0000 PO qd Timolol Maleate Active Solution 0.5% 1 gtt right Unknown /0000 eye Q hs Prednisone Active Tablets 10mg one tab by Unknown /0000 mouth daily Tramadol HCL Active Tablets 50mg 1 tablets Unknown /0000 by mouth every 6 hours as needed pain Bactrim DS 04/29 Hx Tablets 800-160mg 6tabs take 1 by mouth twice Robbie, - a day for 3 M.D. Levetiracetam 01/22 Hx Tablets 500mg 120ta take 1 by G40.209 bs mouth at [facility], - night x 2 M.D. 04/08 weeks; 1 twice a day x 2 weeks; then 1 in am and 1 in pm x 2 weeks; then 2 tabs 2x a day Potassium Chloride 05/14 Hx Tablets 20Meq 270ta 3 tabs by Zuhair ER ER bs mouth every - day 10/28 M.D., FACC, ELLEN Potassium Chloride 05/13 Hx Tablets 20Meq 240ta 3 tabs by Zuhair ER ER bs mouth every - day , 05/13 M.D. FACC, ELLEN Lortab 07/28 Hx Tablets 5-325mg 60tab 1 or 2 M25.561 Shiela s tablets q8 Robbie, - hours as M.D. 03/14 needed pain Carbidopa-Levodopa 12/08 Hx Tablets 25-100mg 405ta take 1.5 G20 Jeimy bs tablet by Talisha, - mouth 20 M.D. prior to breakfast, lunch and dinner Metoprolol 01/25 Hx Tablets 25mg 90tab 1 by mouth Zuhair Succinate ER 24HR s every day Brownlee - along with , 10/28 a 100mg tab M.D., FACC, ELLEN Metoprolol 01/21 Hx Tablets 125mg 1 by mouth Zuhair Succinate ER 24HR every day Kem Elliott, 01/25 M.D., FACC, ELLEN Rythmol SR 02/15 Hx Caps ER 325mg 180ca 1 cap by Zuhair 12HR ps mouth twice - a day Elliott, 02/15 M.D., FACC, ELLEN Rythmol SR 02/15 Hx Caps ER 425mg 180ca one tablet 12HR ps by mouth Brownlee - every , 07/27 hours M.D. FACC, ELLEN Metoprolol 12/21 Hx Tablets 25mg 30tab 1 by mouth Zuhair Succinate ER ER 24HR s every day Brownlee - along with Elliott, 01/21 100mg M.D., tablet FACC, ELLEN Metoprolol 11/23 Hx Tablets 100mg 30tab 1 by mouth Zuhair Succinate ER ER 24HR s every day Kem Elliott, 01/21 M.D., FACC, ELLEN Rythmol SR 05/21 Hx Caps ER 325mg 180ca 1 po bid Zuhair 12HR ps Kem Elliott, 02/15 M.D., FAC, ELLEN Magnesium 05/14 Hx Tablets 200mg 30tab 1 po qd Zuhair s Kem Elliott, 11/08 M.D., FAC, ELLEN Klor-Con M20 05/14 Hx Tablets 20Meq 270ta 3 tabs by ER bs mouth every - Earl, 07/27 M.D., [facility], ELLEN Rythmol SR 04/20 Hx Caps ER 225mg 180ca 1 po bid 12HR ps Kem Elliott, 05/21 M.D., FAC, ELLEN Klor-Con M20 04/08 Hx Tablets 20Meq 180ta 2 Tabs PO Zuhair ER bs Daily Kem Elliott, 05/14 M.D., [facility], ELLEN Cholestyramine Hx Packet 4gm 1 packet [place], twice a MD Ric - day. mixed 10/20 w (patient not taking) Hydrochlorothiazid Hx Tablets 25mg 90tab 1 by mouth Unknown e /0000 s every day - 10/28 Vitamin D High Hx Capsules 1000Unit 1 by mouth Unknown Potency /0000 every day - 03/04 Combivent Hx Aerosol 18-103mcg 1unit 2 puffs by Unknown /0000 /Act s mouth twice - a day 07/27 Potassium Chloride Hx Solution 20Meq/50M 3 tabs once Jeimy /0000 L a day Jordin Woodall M.D. 05/[address] 60mg take 1 Unknown /0000 Part capsule by - mouth once 10/28 Nystatin-Triamcino Hx Ointment 300769-0. apply to Unknown lone /0000 1Unit/GM- affected - % area On The 03/07 Skin twice a day Cholestyramine Hx Packet 4gm 2x a day Unknown /0000 - 10/28 Lactobacillus Hx Capsules 1 tab by Unknown Extra Strength /0000 mouth bid - 12/18 Medications Administered in Office Medication Date Status Form Strength Qnty SIG Indications Ordering Provider Technetium TC Administered Injection Ica Nuclear 99M 017 Schedule Tetrofosmin, Per Unit Dose Up To 40 Millicuries Inj, Administered Injection Karri S. Regadenoson, 017 Adams, DO 0.1 MG FACC Technetium TC Administered Injection Karri S. 99M 017 Adams, DO Tetrofosmin, FACC Per Unit Dose Up To 40 Millicuries Vital Signs Date Vital Result Comment 10/24/2017 Height 64 inches 5'4" Heart Rate 62 /min BP Systolic Sitting 128 mmHg BP Diastolic Sitting 78 mmHg Pain Level 0 O2 % BldC Oximetry 91 % 06/02/2017 Height 64 inches 5'4" Weight 233.00 lb Heart Rate 68 /min BP Systolic 104 mmHg BP Diastolic 60 mmHg Body Temperature 96.8 F Pain Level 0 BMI (Body Mass Index) 40.0 kg/m2 04/30/2017 Height 64 inches 5'4" Weight 233.00 lb with shoes Heart Rate 76 /min BP Systolic Sitting 90 mmHg Lue lg cuff BP Diastolic Sitting 60 mmHg Lue lg cuff BP Systolic Standing 90 mmHg Lue lg cuff BP Diastolic Standing 64 mmHg Lue lg cuff BMI (Body Mass Index) 40.0 kg/m2 Ejection Fraction 55-60% date 02/05/17 ECHO 04/28/2017 Height 64 inches 5'4" Weight 233.00 lb Heart Rate 64 /min BP Systolic 130 mmHg BP Diastolic 64 mmHg BMI (Body Mass Index) 40.0 kg/m2 04/09/2017 Height 64 inches 5'4" Weight 224.00 lb Heart Rate 64 /min BP Systolic Sitting 140 mmHg BP Diastolic Sitting 84 mmHg Respiratory Rate 16 /min BMI (Body Mass Index) 38.4 kg/m2 03/24/2017 Height 64 inches 5'4" Weight 231.00 lb Heart Rate 48 /min BP Systolic 116 mmHg BP Diastolic 67 mmHg Body Temperature 97.6 F Pain Level 5 BMI (Body Mass Index) 39.6 kg/m2 03/03/2017 Height 64 inches 5'4" Weight 232.00 lb with shoes Heart Rate 66 /min BP Systolic Sitting 118 mmHg Rue reg cuff BP Diastolic Sitting 70 mmHg Rue reg cuff Respiratory Rate 17 /min BMI (Body Mass Index) 39.8 kg/m2 Ejection Fraction 55-60% 02/05/2017-echo 01/22/2017 Height 64 inches 5'4" Weight 226.00 lb Heart Rate 62 /min BP Systolic Sitting 126 mmHg BP Diastolic Sitting 72 mmHg Respiratory Rate 16 /min BMI (Body Mass Index) 38.8 kg/m2 12/06/2016 Height 64 inches 5'4" Weight 236.00 lb Heart Rate 58 /min BP Systolic 118 mmHg BP Diastolic 68 mmHg Respiratory Rate 13 /min Pain Level 8 BMI (Body Mass Index) 40.5 kg/m2 10/21/2016 Height 64 inches 5'4" Weight 239.00 lb Heart Rate 72 /min BP Systolic Sitting 120 mmHg BP Diastolic Sitting 74 mmHg Respiratory Rate 14 /min BMI (Body Mass Index) 41.0 kg/m2 06/20/2016 Height 64 inches 5'4" Weight 238.00 lb Heart Rate 68 /min BP Systolic Sitting 122 mmHg BP Diastolic Sitting 76 mmHg Respiratory Rate 14 /min BMI (Body Mass Index) 40.8 kg/m2 03/05/2016 Height 64 inches 5'4" Weight 245.50 lb with shoes Heart Rate 62 /min BP Systolic Sitting 126 mmHg BP Diastolic Sitting 64 mmHg Respiratory Rate 18 /min BMI (Body Mass Index) 42.1 kg/m2 Ejection Fraction 55-60% 01/31/16 10/19/2015 Height 64 inches 5'4" Weight 256.00 lb Heart Rate 65 /min BP Systolic Sitting 126 mmHg BP Diastolic Sitting 70 mmHg Respiratory Rate 20 /min O2 % BldC Oximetry 96 % BMI (Body Mass Index) 43.9 kg/m2 10/04/2015 Height 64 inches 5'4" Weight 256.00 lb Heart Rate 62 /min BP Systolic Sitting 120 mmHg BP Diastolic Sitting 62 mmHg BMI (Body Mass Index) 43.9 kg/m2 08/28/2015 Height 64 inches 5'4" Weight 262.00 lb Pain Level 0 BMI (Body Mass Index) 45.0 kg/m2 07/28/2015 Height 64 inches 5'4" Weight 262.00 lb Heart Rate 62 /min BP Systolic 117 mmHg BP Diastolic 61 mmHg BMI (Body Mass Index) 45.0 kg/m2 03/29/2015 Weight 284.00 lb Heart Rate 60 /min BP Systolic Sitting 126 mmHg BP Diastolic Sitting 76 mmHg Respiratory Rate 16 /min 02/28/2015 Heart Rate 64 /min BP Systolic Sitting 136 mmHg BP Diastolic Sitting 78 mmHg Respiratory Rate 22 /min O2 % BldC Oximetry 97 % 02/08/2015 Height 68 inches 5'8" Weight 276.00 lb Heart Rate 62 /min BP Systolic Sitting 126 mmHg LA, Lg cuff BP Diastolic Sitting 70 mmHg LA, Lg cuff BP Systolic Standing 128 mmHg LA BP Diastolic Standing 70 mmHg LA Respiratory Rate 16 /min BMI (Body Mass Index) 42.0 kg/m2 Ejection Fraction 55-60% 01/23/2015 12/08/2014 Height 68 inches 5'8" Weight 300.00 lb Heart Rate 68 /min BP Systolic Sitting 130 mmHg BP Diastolic Sitting 64 mmHg Respiratory Rate 16 /min BMI (Body Mass Index) 45.6 kg/m2 10/10/2014 Height 68 inches 5'8" Weight 299.00 lb Heart Rate 64 /min BP Systolic Sitting 118 mmHg BP Diastolic Sitting 62 mmHg Respiratory Rate 16 /min BMI (Body Mass Index) 45.5 kg/m2 07/08/2014 Height 68 inches 5'8" Weight 300.00 lb Heart Rate 61 /min BP Systolic Sitting 136 mmHg BP Diastolic Sitting 78 mmHg Respiratory Rate 20 /min O2 % BldC Oximetry 97 % BMI (Body Mass Index) 45.6 kg/m2 05/18/2014 Height 66 inches 5'6" Weight 308.00 lb Heart Rate 60 /min BP Systolic Sitting 118 mmHg BP Diastolic Sitting 60 mmHg Respiratory Rate 20 /min BMI (Body Mass Index) 49.7 kg/m2 04/19/2014 Height 66 inches 5'6" Weight 302.00 lb Heart Rate 62 /min BP Systolic Sitting 133 mmHg BP Diastolic Sitting 54 mmHg Respiratory Rate 20 /min O2 % BldC Oximetry 97 % Ra BMI (Body Mass Index) 48.7 kg/m2 01/21/2014 Height 66 inches 5'6" Weight 303.50 lb Heart Rate 60 /min BP Systolic Sitting 124 mmHg BP Diastolic Sitting 64 mmHg BP Systolic Standing 122 mmHg BP Diastolic Standing 60 mmHg Respiratory Rate 16 /min BMI (Body Mass Index) 49.0 kg/m2 11/10/2013 Height 66 inches 5'6" Weight 297.00 lb Heart Rate 62 /min BP Systolic Sitting 130 mmHg BP Diastolic Sitting 70 mmHg Respiratory Rate 16 /min BMI (Body Mass Index) 47.9 kg/m2 Results Test Date Test Result H/L Range Note Laboratory test finding 10/29/2017 C Reactive Protein 3.69 mg/L < 5.00 1 , 2 Erythrocyte Sed Rate 8 mm/Hr 0-40 1, 3 Uric Acid 6.2 mg/dL 4.4-7.6 1, 4 Connective Tissue Panel 10/29/2017 Anti-Nuclear Antibody 0.4 U 1, 5 Cyclic Citrullinated Peptide <15.6 U 1, 6 Interpretation See Comment 1, 7 Laboratory test finding 10/29/2017 Rheumatoid Factor <10 IU/mL 0-14 1, 8 Hla B27 10/29/2017 Hla B27 Negative 1, 9 Hla B27 Interp See Comment 1, 10 Laboratory test finding 10/29/2017 Lyme Disease Serology Negative Negative 1, 11 Laboratory test finding 04/30/2017 Valproic Acid 90.0 g/mL 50-100 12 (Depakene) Comp Metabolic Panel 04/28/2017 Sodium 143 mmol/L 133-145 13 Potassium 4.3 mmol/L 3.5-5.0 13 Chloride 103 mmol/L 101-111 13 Co2 Carbon Dioxide 36 mmol/L High 22-32 13 Anion Gap 4 mmol/L 2-11 13 Glucose 82 mg/dL 70-100 13 Blood Urea Nitrogen 26 mg/dL High 6-24 13 Creatinine 0.95 mg/dL 0.67-1.17 13 BUN/Creatinine Ratio 27.4 High 8-20 13 Calcium 9.1 mg/dL 8.6-10.3 13 Total Protein 6.6 g/dL 6.4-8.9 13 Albumin 3.8 g/dL 3.2-5.2 13 Globulin 2.8 g/dL 2-4 13 Albumin/Globulin Ratio 1.4 1-3 13 Total Bilirubin 0.30 mg/dL 0.2-1.0 13 Alkaline Phosphatase 89 U/L 34-104 13 Alt 14 U/L 7-52 13 Ast 16 U/L 13-39 13 Egfr Non- 76.7 >60 13 Egfr 98.6 >60 13, 14 Urine Culture And 04/28/2017 Urine Culture SEE RESULT BELOW 13, 15 Sensitivities CBC No Diff 04/28/2017 White Blood Count 8.4 10^3/uL 3.5-10.8 13 Red Blood Count 4.49 10^6/uL 4.0-5.4 13 Hemoglobin 15.0 g/dL 14.0-18.0 13 Hematocrit 46 % 42-52 13 Mean Corpuscular Volume 101 fL High 80-94 13 Mean Corpuscular Hemoglobin 33 pg High 27-31 13 Mean Corpuscular HGB Conc 33 g/dL 31-36 13 Red Cell Distribution Width 14 % 10.5-15 13 Platelet Count 196 10^3/uL 150-450 13 Mean Platelet Volume 8 um3 7.4-10.4 13 Urinalysis Profile 04/28/2017 Urine Color [place] 13 Urine Appearance Cloudy 13 Urine Specific [place] 1.027 1.010-1.030 13 Urine pH 5.0 5-9 13 Urine Urobilinogen Negative Negative 13 Urine Ketones Trace Negative 13 Urine Protein 1+(30 mg/dL) Negative 13 Urine Leukocytes 2+ Negative 13 Urine Blood Negative Negative 13 * * Negative 13, 16 Urine Nitrite Negative Negative 13 Urine Bilirubin Negative Negative 13 Urine Glucose Negative Negative 13 Urine White Blood Cell 3+(>20/hpf) Absent 13 Urine Red Blood Cell Trace(0-2/hpf) Absent 13 Urine Bacteria 1+ Absent 13 Urine Squamous Epithelial Cell Present Absent 13 Urine Hyaline Casts Present Absent 13 Urine Amorphous Crystals Present Absent 13 Inr/Protime 04/28/2017 Inr 1.10 0.89-1.11 13 Type & Screen 04/28/2017 Patient Blood Type O Positive 13 Antibody Screen NEGATIVE 13 Laboratory test 04/28/2017 Partial Thrombo 43.0 seconds High 26.0-36.3 13 , 17 finding Time PTT Laboratory test 04/09/2017 Valproic Acid 38.0 g/mL Low 50-100 finding (Depakene) CBC Auto Diff 02/18/2017 White Blood Count 9.7 10^3/uL 3.5-10.8 Red Blood Count 4.38 10^6/uL 4.0-5.4 Hemoglobin 14.4 g/dL 14.0-18.0 Hematocrit 44 % 42-52 Mean Corpuscular Volume 99 fL High 80-94 Mean Corpuscular Hemoglobin 33 pg High 27-31 Mean Corpuscular HGB Conc 33 g/dL 31-36 Red Cell Distribution Width 14 % 10.5-15 Platelet Count 223 10^3/uL 150-450 Mean Platelet Volume 8 um3 7.4-10.4 Abs Neutrophils 5.1 10^3/uL 1.5-7.7 Abs Lymphocytes 3.2 10^3/uL 1.0-4.8 Abs Monocytes 0.9 10^3/uL High 0-0.8 Abs Eosinophils 0.4 10^3/uL 0-0.6 Abs Basophils 0.1 10^3/uL 0-0.2 Abs Nucleated RBC 0 10^3/uL Granulocyte % 53.0 % 38-83 Lymphocyte % 32.8 % 25-47 Monocyte % 8.9 % 1-9 Eosinophil % 4.0 % 0-6 Basophil % 1.3 % 0-2 Nucleated Red Blood Cells % 0 Comp Metabolic Panel 02/18/2017 Sodium 139 mmol/L 133-145 Potassium 4.6 mmol/L 3.5-5.0 Chloride 103 mmol/L 101-111 Co2 Carbon Dioxide 30 mmol/L 22-32 Anion Gap 6 mmol/L 2-11 Glucose 95 mg/dL 70-100 Blood Urea Nitrogen 34 mg/dL High 6-24 Creatinine 1.09 mg/dL 0.67-1.17 BUN/Creatinine Ratio 31.2 High 8-20 Calcium 8.7 mg/dL 8.6-10.3 Total Protein 6.2 g/dL Low 6.4-8.9 Albumin 3.6 g/dL 3.2-5.2 Globulin 2.6 g/dL 2-4 Albumin/Globulin Ratio 1.4 1-3 Total Bilirubin 0.40 mg/dL 0.2-1.0 Alkaline Phosphatase 95 U/L 34-104 Alt 13 U/L 7-52 Ast 18 U/L 13-39 Egfr Non- 65.4 >60 Egfr 84.1 >60 18 Lipid Profile (Trig/Chol/HDL) 02/18/2017 Triglycerides 106 mg/dL 19 Cholesterol 116 mg/dL 20 HDL Cholesterol 32.7 mg/dL 21 LDL Cholesterol 62 mg/dL 22 Vitamin B12 And Folate Serum 10/29/2016 Vitamin B12 438 pg/mL 180-914 23 Folate 16.35 ng/mL >3.99 Laboratory test finding 10/29/2016 TSH (Thyroid Stimulating 2.03 mcIU/mL 0.34-5.60 Horm) Free T4 0.99 ng/dL 0.61-1.12 CBC Auto Diff 06/20/2016 White Blood Count 9.5 10^3/uL 3.5-10.8 Red Blood Count 4.52 10^6/uL 4.0-5.4 Hemoglobin 14.8 g/dL 14.0-18.0 Hematocrit 44 % 42-52 Mean Corpuscular Volume 98 fL High 80-94 Mean Corpuscular Hemoglobin 33 pg High 27-31 Mean Corpuscular HGB Conc 33 g/dL 31-36 Red Cell Distribution Width 15 % 10.5-15 Platelet Count 216 10^3/uL 150-450 Mean Platelet Volume 8 um3 7.4-10.4 Abs Neutrophils 6.3 10^3/uL 1.5-7.7 Abs Lymphocytes 2.3 10^3/uL 1.0-4.8 Abs Monocytes 0.6 10^3/uL 0-0.8 Abs Eosinophils 0.2 10^3/uL 0-0.6 Abs Basophils 0.1 10^3/uL 0-0.2 Abs Nucleated RBC 0 10^3/uL Granulocyte % 66.4 % 38-83 Lymphocyte % 23.7 % Low 25-47 Monocyte % 6.3 % 1-9 Eosinophil % 2.1 % 0-6 Basophil % 1.5 % 0-2 Nucleated Red Blood Cells % 0 Liver Function Panel 06/20/2016 Total Protein 6.5 g/dL 6.4-8.9 Albumin 3.7 g/dL 3.2-5.2 Globulin 2.8 g/dL 2-4 Albumin/Globulin Ratio 1.3 1-3 Total Bilirubin 0.40 mg/dL 0.2-1.0 Direct Bilirubin 0.10 mg/dL 0.03-0.18 Indirect Bilirubin 0.3 mg/dL 0.3-1.0 Alkaline Phosphatase 102 U/L 34-104 Alt 6 U/L Low 7-52 Ast 14 U/L 13-39 Laboratory test finding 06/20/2016 Valproic Acid (Depakene) 77.0 g/mL 50-100 24 CBC Auto Diff 09/19/2015 White Blood Count 7.6 10^3/uL 3.5-10.8 Red Blood Count 4.44 10^6/uL 4.0-5.4 Hemoglobin 15.1 g/dL 14.0-18.0 Hematocrit 45 % 42-52 Mean Corpuscular Volume 101 fL High 80-94 Mean Corpuscular Hemoglobin 34 pg High 27-31 Mean Corpuscular HGB Conc 34 g/dL 31-36 Red Cell Distribution Width 14 % 10.5-15 Platelet Count 171 10^3/uL 150-450 Mean Platelet Volume 8 um3 7.4-10.4 Abs Neutrophils 4.6 10^3/uL 1.5-7.7 Abs Lymphocytes 2.2 10^3/uL 1.0-4.8 Abs Monocytes 0.5 10^3/uL 0-0.8 Abs Eosinophils 0.2 10^3/uL 0-0.6 Abs Basophils 0.1 10^3/uL 0-0.2 Abs Nucleated RBC 0 10^3/uL Granulocyte % 60.5 % 38-83 Lymphocyte % 29.7 % 25-47 Monocyte % 6.9 % 1-9 Eosinophil % 2.2 % 0-6 Basophil % 0.7 % 0-2 Nucleated Red Blood Cells % 0 Comp Metabolic Panel 09/19/2015 Sodium 138 mmol/L 133-145 Potassium 4.0 mmol/L 3.5-5.0 Chloride 103 mmol/L 101-111 Co2 Carbon Dioxide 26 mmol/L 22-32 Anion Gap 9 mmol/L 2-11 Glucose 109 mg/dL High 70-100 Blood Urea Nitrogen 12 mg/dL 6-24 Creatinine 0.87 mg/dL 0.67-1.17 BUN/Creatinine Ratio 13.8 8-20 Calcium 9.0 mg/dL 8.6-10.3 Total Protein 6.2 g/dL Low 6.4-8.9 Albumin 3.8 g/dL 3.2-5.2 Globulin 2.4 g/dL 2-4 Albumin/Globulin Ratio 1.6 1-3 Total Bilirubin 0.50 mg/dL 0.2-1.0 Alkaline Phosphatase 77 U/L 34-104 Alt 4 U/L Low 7-52 Ast 11 U/L Low 13-39 Egfr Non- 85.3 >60 Egfr 109.7 >60 25 Lipid Profile (Trig/Chol/HDL) 09/19/2015 Triglycerides 121 mg/dL 26 Cholesterol 128 mg/dL 27 HDL Cholesterol 28.7 mg/dL 28 LDL Cholesterol 75 mg/dL 29 Laboratory test finding 09/19/2015 Uric Acid 5.5 mg/dL 4.4-7.6 Comp Metabolic Panel 04/04/2015 Sodium 140 mmol/L 133-145 Potassium 4.2 mmol/L 3.5-5.0 Chloride 106 mmol/L 101-111 Co2 Carbon Dioxide 28 mmol/L 22-32 Anion Gap 6 mmol/L 2-11 Glucose 95 mg/dL 70-100 Blood Urea Nitrogen 14 mg/dL 6-24 Creatinine 0.76 mg/dL 0.67-1.17 BUN/Creatinine Ratio 18.4 8-20 Calcium 8.9 mg/dL 8.6-10.3 Total Protein 6.1 g/dL Low 6.4-8.9 Albumin 3.9 g/dL 3.2-5.2 Globulin 2.2 g/dL 2-4 Albumin/Globulin Ratio 1.8 1-3 Total Bilirubin 0.40 mg/dL 0.2-1.0 Alkaline Phosphatase 61 U/L 34-104 Alt < 3 U/L Low 7-52 Ast 9 U/L Low 13-39 Egfr Non- 99.7 >60 Egfr 128.2 >60 30 CBC Auto Diff 04/04/2015 White Blood Count 7.6 10^3/uL 4.8-10.8 Red Blood Count 4.38 10^6/uL 4.0-5.4 Hemoglobin 14.6 g/dL 14.0-18.0 Hematocrit 45 % 42-52 Mean Corpuscular Volume 102 fL High 80-94 Mean Corpuscular Hemoglobin 33 pg High 27-31 Mean Corpuscular HGB Conc 33 g/dL 31-36 Red Cell Distribution Width 15 % 10.5-15 Platelet Count 185 10^3/uL 150-450 Mean Platelet Volume 8 um3 7.4-10.4 Abs Neutrophils 4.5 10^3/uL 1.5-7.7 Abs Lymphocytes 2.5 10^3/uL 1.0-4.8 Abs Monocytes 0.4 10^3/uL 0-0.8 Abs Eosinophils 0.2 10^3/uL 0-0.6 Abs Basophils 0.1 10^3/uL 0-0.2 Abs Nucleated RBC 0 10^3/uL Granulocyte % 58.4 % 38-83 Lymphocyte % 32.2 % 25-47 Monocyte % 5.7 % 1-9 Eosinophil % 2.4 % 0-6 Basophil % 1.3 % 0-2 Nucleated Red Blood Cells % 0.1 Laboratory test finding 04/04/2015 Valproic Acid (Depakene) 57.0 g/mL 50-100 CBC Auto Diff 10/20/2014 White Blood Count 7.3 10^3/uL 4.8-10.8 Red Blood Count 4.47 10^6/uL 4.0-5.4 Hemoglobin 14.5 g/dL 14.0-18.0 Hematocrit 44 % 42-52 Mean Corpuscular Volume 99 fL High 80-94 Mean Corpuscular Hemoglobin 33 pg High 27-31 Mean Corpuscular HGB Conc 33 g/dL 31-36 Red Cell Distribution Width 14 % 10.5-15 Platelet Count 177 10^3/uL 150-450 Mean Platelet Volume 8 um3 7.4-10.4 Abs Neutrophils 4.4 10^3/uL 1.5-7.7 Abs Lymphocytes 2.2 10^3/uL 1.0-4.8 Abs Monocytes 0.5 10^3/uL 0-0.8 Abs Eosinophils 0.1 10^3/uL 0-0.6 Abs Basophils 0 10^3/uL 0-0.2 Abs Nucleated RBC 0 10^3/uL Granulocyte % 60.1 % 38-83 Lymphocyte % 30.2 % 25-47 Monocyte % 7.2 % 1-9 Eosinophil % 1.8 % 0-6 Basophil % 0.7 % 0-2 Nucleated Red Blood Cells % 0 Liver Function Panel 10/20/2014 Total Protein 6.5 g/dL 6.4-8.9 Albumin 3.9 g/dL 3.2-5.2 Globulin 2.6 g/dL 2-4 Albumin/Globulin Ratio 1.5 1-3 Total Bilirubin 0.40 mg/dL 0.2-1.0 Direct Bilirubin 0.10 mg/dL 0.03-0.18 Indirect Bilirubin 0.3 mg/dL 0.3-1.0 Alkaline Phosphatase 66 U/L 34-104 Alt 6 U/L Low 7-52 Ast 8 U/L Low 13-39 Comp Metabolic Panel 10/20/2014 Sodium 141 mmol/L 133-145 Potassium 4.5 mmol/L 3.5-5.0 Chloride 104 mmol/L 101-111 Co2 Carbon Dioxide 32 mmol/L 22-32 Anion Gap 5 mmol/L 2-11 Glucose 85 mg/dL 70-100 Blood Urea Nitrogen 19 mg/dL 6-24 Creatinine 1.00 mg/dL 0.67-1.17 BUN/Creatinine Ratio 19.0 8-20 Calcium 9.1 mg/dL 8.6-10.3 Total Protein 6.6 g/dL 6.4-8.9 Albumin 3.9 g/dL 3.2-5.2 Globulin 2.7 g/dL 2-4 Albumin/Globulin Ratio 1.4 1-3 Total Bilirubin 0.50 mg/dL 0.2-1.0 Alkaline Phosphatase 67 U/L 34-104 Alt 6 U/L Low 7-52 Ast 8 U/L Low 13-39 Egfr Non- 72.8 >60 Egfr 93.7 >60 31 Lipid Profile (Trig/Chol/HDL) 10/20/2014 Triglycerides 99 mg/dL 32 Cholesterol 110 mg/dL 33 HDL Cholesterol 29.4 mg/dL 34 LDL Cholesterol 61 mg/dL 35 Laboratory test finding 10/20/2014 Uric Acid 7.5 mg/dL 4.4-7.6 Magnesium 1.9 mg/dL 1.9-2.7 Vitamin B12 And Folate Serum 11/10/2013 Vitamin B12 479 pg/mL 180-914 36 Folate 13.10 ng/mL >3.99 Laboratory test finding 11/03/2013 Valproic Acid 52 g/mL 50.0-100.0 CBC Auto Diff 09/10/2013 White Blood Count 9.8 10^3/uL 4.8-10.8 Red Blood Count 4.36 10^6/uL 4.0-5.4 Hemoglobin 14.6 g/dL 14.0-18.0 Hematocrit 43 % 42-52 Mean Corpuscular Volume 99 fL High 80-94 Mean Corpuscular Hemoglobin 33 pg High 27-31 Mean Corpuscular HGB Conc 34 g/dL 31-36 Red Cell Distribution Width 14 % 10.5-15 Platelet Count 241 10^3/uL 150-450 Mean Platelet Volume 8 um3 7.4-10.4 Abs Neutrophils 6.3 10^3/uL 1.5-7.7 Abs Lymphocytes 2.2 10^3/uL 1.0-4.8 Abs Monocytes 1.0 10^3/uL High 0-0.8 Abs Eosinophils 0.2 10^3/uL 0-0.6 Abs Basophils 0.1 10^3/uL 0-0.2 Abs Nucleated RBC 0 10^3/uL Granulocyte % 65.0 % 38-83 Lymphocyte % 22.1 % Low 25-47 Monocyte % 9.8 % High 1-9 Eosinophil % 2.0 % 0-6 Basophil % 1.1 % 0-2 Nucleated Red Blood Cells % 0 Comp Metabolic Panel 09/10/2013 Sodium 140 mmol/L 133-145 Potassium 4.7 mmol/L 3.7-5.6 Chloride 105 mmol/L 101-111 Co2 Carbon Dioxide 25 mmol/L 22-32 Anion Gap 10 mmol/L 2-11 Glucose 98 mg/dL 70-100 Blood Urea Nitrogen 20 mg/dL 6-24 Creatinine 1.04 mg/dL 0.67-1.17 BUN/Creatinine Ratio 19.2 8-20 Calcium 8.9 mg/dL 8.6-10.3 Total Protein 6.7 g/dL 6.4-8.9 Albumin 4.1 g/dL 3.2-5.2 Globulin 2.6 g/dL 2-4 Albumin/Globulin Ratio 1.6 1-3 Total Bilirubin 0.50 mg/dL 0.2-1.0 Alkaline Phosphatase 61 U/L 34-104 Alt 8 U/L 7-52 Ast 10 U/L Low 13-39 Egfr Non- 69.8 >60 Egfr 89.8 >60 37 Lipid Profile (Trig/Chol/HDL) 09/10/2013 Triglycerides 91 mg/dL 38 Cholesterol 109 mg/dL 39 HDL Cholesterol 31.1 mg/dL 40 LDL Cholesterol 60 mg/dL 41 Laboratory test finding 09/10/2013 Uric Acid 8.4 mg/dL High 4.4-7.6 42 PSA Screening 0.222 ng/mL 0-4.000 43 Laboratory test finding 05/18/2013 Magnesium 1.9 mg/dL 1.7-2.6 Laboratory test finding 02/17/2013 Magnesium 1.9 mg/dL 1.7-2.6 44 TSH (Thyroid Stimulating Horm) 2.33 miu/mL 0.34-5.60 45 Basic Metabolic Panel 02/17/2013 Sodium 142 mmol/L 133-145 Potassium 4.4 mmol/L 3.5-5.0 Chloride 107 mmol/L 101-111 Co2 Carbon Dioxide 29.0 mmol/L 22-32 Anion Gap 6.0 mmol/L 2-11 Glucose 103 mg/dL High 70-100 Blood Urea Nitrogen 19 mg/dL 6-24 Creatinine 0.90 mg/dL 0.50-1.40 BUN/Creatinine Ratio 21.1 High 8-20 Calcium 9.5 mg/dL 8.1-9.9 Egfr Non- 82.5 >60 Egfr 106.1 >60 46 CBC No Diff 02/17/2013 White Blood Count 9.5 10^3/uL 4.8-10.8 Red Blood Count 4.69 10^6/uL 4.0-5.4 Hemoglobin 15.2 g/dL 14.0-18.0 Hematocrit 46 % 42-52 Mean Corpuscular Volume 98 fL High 80-94 Mean Corpuscular Hemoglobin 32 pg High 27-31 Mean Corpuscular HGB Conc 33 g/dL 31-36 Red Cell Distribution Width 14 % 10.5-15 Platelet Count 179 10^3/uL 150-450 Mean Platelet Volume 8 um3 7.4-10.4 Laboratory test finding 05/22/2012 Magnesium 2.0 mg/dL 1.7-2.6 Basic Metabolic Panel 05/22/2012 Sodium 138 mmol/L 133-145 Potassium 4.4 mmol/L 3.5-5.0 Chloride 104 mmol/L 101-111 Co2 Carbon Dioxide 26.0 mmol/L 22-32 Anion Gap 8.0 mmol/L 2-11 Glucose 93 mg/dL 70-100 Blood Urea Nitrogen 14 mg/dL 6-24 Creatinine 0.90 mg/dL 0.50-1.40 BUN/Creatinine Ratio 15.6 8-20 Calcium 8.8 mg/dL 8.1-9.9 Egfr Non- 82.7 >60 Egfr 106.4 >60 47 Laboratory test finding 05/13/2012 Magnesium 1.8 mg/dL 1.7-2.6 TSH (Thyroid Stimulating Horm) 2.56 MIU/ML 0.34-5.60 Basic Metabolic Panel 05/13/2012 Sodium 142 mmol/L 133-145 Potassium 3.6 mmol/L 3.5-5.0 Chloride 106 mmol/L 101-111 Co2 Carbon Dioxide 28.0 mmol/L 22-32 Anion Gap 8.0 mmol/L 2-11 Glucose 98 mg/dL 70-100 Blood Urea Nitrogen 19 mg/dL 6-24 Creatinine 1.00 mg/dL 0.50-1.40 BUN/Creatinine Ratio 19.0 8-20 Calcium 8.6 mg/dL 8.1-9.9 Egfr Non- 73.2 >60 Egfr 94.2 >60 48 CBC No Diff 05/13/2012 White Blood Count 8.6 10^3/uL 4.8-10.8 Red Blood Count 4.16 10^6/uL 4.0-5.4 Hemoglobin 13.7 g/dL Low 14.0-18.0 Hematocrit 40 % Low 42-52 Mean Corpuscular Volume 96 fL High 80-94 Mean Corpuscular Hemoglobin 33 pg High 27-31 Mean Corpuscular HGB Conc 34 g/dL 31-36 Red Cell Distribution Width 15 % 10.5-15 Platelet Count 132 10^3/uL Low 150-450 Mean Platelet Volume 9 um3 7.4-10.4 Basic Metabolic Panel 04/07/2012 Sodium 135 mmol/L 133-145 Potassium 3.8 mmol/L 3.5-5.0 Chloride 105 mmol/L 101-111 Co2 Carbon Dioxide 28.0 mmol/L 22-32 Anion Gap 2.0 mmol/L 2-11 Glucose 108 mg/dL High 70-100 Blood Urea Nitrogen 14 mg/dL 6-24 Creatinine 1.20 mg/dL 0.50-1.40 BUN/Creatinine Ratio 11.7 8-20 Calcium 8.4 mg/dL 8.1-9.9 Egfr Non- 59.3 >60 Egfr 76.3 >60 49 1 [id number] [facility] Room Number 109 2 Acute inflammation: >10.00 3 [id number] [facility], Room Number 109 [id number] [place] [address] [address], Room Number 109 5 REFERENCE VALUE <=1.0 (Negative) 6 REFERENCE VALUE <20.0 (Negative) 7 Tests for antibodies to dsDNA and ZAKIA antigens are not performed automatically unless the JUNI result is > or= 3.0 U. Studies performed at [facility] indicate that positive JUNI results <3.0 U are rarely accompanied by positive second order tests. Test Performed by: [facility] [place] [facility] [address] [place] [address] 8 Performed by [employer], [address] [place] [id number] [email or web address], Axel Bush MD - Lab. Director Test Performed by: [employer] [facility] [address] [place] [address] 9 REFERENCE VALUE Not Applicable 10 RESULT: HLA-B27 antigen was not detected. ADDITIONAL INFORMATION Method: Flow Cytometry Performing Laboratory CLIA# [id number] Test Performed by: [facility] - [address] [address] 11 No evidence of antibodies to B. burgdorferi detected. False negative results may occur in recently infected patients (<=2 weeks) due to low or undetectable antibody levels to B. burgdorferi. If recent exposure is suspected, a second sample should be collected and tested in 2-4 weeks. Test Performed by: [facility] [address] [place] [address] 12 ORDERED 04/12/17 EXPIRES 10/11/17 DRAW IN AM PRIOR TO FIRST DOSE CC:[email or web address] 13 AA 05/15 14 Because ethnic data is not always readily available, this report includes an eGFR for both -Americans and non- Americans. The National Kidney Disease Education Program (NKDEP) does not endorse the use of the MDRD equation for patients that are not between the ages of 18 and 70, are , have extremes of body size, muscle mass, or nutritional status, or are non- or non-. According to the National Kidney Foundation, irrespective of diagnosis, the stage of the disease is based on the level of kidney function: Stage Description GFR(mL/min/1.73 m(2)) 1 Kidney damage with normal or decreased GFR 90 2 Kidney damage with mild decrease in GFR 60-89 3 Moderate decrease in GFR 30-59 4 Severe decrease in GFR 15-29 5 Kidney failure <15 (or dialysis) 15 SEE RESULT BELOW Name: JOEL GUTIERREZJUJU Cooper : [address]: Shiela Avalos MD Acct: [id number] Unit: [id number] AGE: 77 Location: PAT Re04/28/17 SEX: M Status: REG REF SPEC: [id number] DALE: 04/28/[address]: Shiela Avalos MD REQ: [id number] RECD: 04/28/17 STATUS: NATALYA BROWN DR: Zuhair Woodall MD _ SOURCE: URINE SPDESC: ORDERED: Urine Culture COMMENTS: YELENA 05/15 QUERIES: Urine Source: Clean Catch Procedure Result Reported Site Urine Culture Final 04/30/17822 ML Organism 1 ENTEROCOCCUS FAECALIS [place] Count >100,000 (Many) CFU/ML 1. ENTEROCOCCUS FAECALIS M.I.C. RX --------- ------ Ampicillin <=2 S Penicillin 8 S Ciprofloxacin 1 S Gentamicin High Level R Levofloxacin 1 S Linezolid 1 S Nitrofurantoin <=16 S * Quinupristin/Dalfopristin 4 R * Streptomycin High Level S Tetracycline >=16 R Tigecycline <=0.12 S Vancomycin <=0.5 S Imipenem-Deduced S * Ampicillin/Sulbactam-Deduced S CONTINUED ON NEXT PAGE * ML=Testing performed at Main Lab DEPARTMENT OF PATHOLOGY, [address] [place] [address] Héctor Block M.D. Director [facility] # [id number] Patient: JUJU DEWITT SR [id number] (Continued) Specimen: [id number] Collected: 04/28/17 Received: 04/28/17 (Continued) Procedure Result Reported Site Urine Culture Final (continued) * These antibiotics are not available in the [facility] Formulary Contact the Microbiology Department for any additional antibiotic reporting. * ML - MAIN LAB (PSC1) . END OF REPORT * ML=Testing performed at Main Lab DEPARTMENT OF PATHOLOGY, [address] [place] [address] Héctor Block M.D. Director [facility] # [id number] 16 *Ascorbic acid is present which may interfere with detection of blood. 17 AA 05/15 18 Because ethnic data is not always readily available, this report includes an eGFR for both -Americans and non- Americans. The National Kidney Disease Education Program (NKDEP) does not endorse the use of the MDRD equation for patients that are not between the ages of 18 and 70, are , have extremes of body size, muscle mass, or nutritional status, or are non- or non-. According to the National Kidney Foundation, irrespective of diagnosis, the stage of the disease is based on the level of kidney function: Stage Description GFR(mL/min/1.73 m(2)) 1 Kidney damage with normal or decreased GFR 90 2 Kidney damage with mild decrease in GFR 60-89 3 Moderate decrease in GFR 30-59 4 Severe decrease in GFR 15-29 5 Kidney failure <15 (or dialysis) 19 Desirable <150 Borderline high 150-199 High 200-499 Very High >500 20 Desirable <200 Borderline high 200-239 High >239 21 Low <40 Desirable: 40-60 High: >60 22 Desirable: <100 mg/dL Near Optimal: 100-129 mg/dL Borderline High: 130-159 mg/dL High: 160-189 mg/dL Very High: >189 mg/dL 23 Normal Range 180 to 914 Indeterminate Range 145 to 180 Deficient Range <145 24 Draw prior to AM dose of medication Copy Result to: JENI SCHWARTZ ([id number]) 25 Because ethnic data is not always readily available, this report includes an eGFR for both -Americans and non- Americans. The National Kidney Disease Education Program (NKDEP) does not endorse the use of the MDRD equation for patients that are not between the ages of 18 and 70, are , have extremes of body size, muscle mass, or nutritional status, or are non- or non-. According to the National Kidney Foundation, irrespective of diagnosis, the stage of the disease is based on the level of kidney function: Stage Description GFR(mL/min/1.73 m(2)) 1 Kidney damage with normal or decreased GFR 90 2 Kidney damage with mild decrease in GFR 60-89 3 Moderate decrease in GFR 30-59 4 Severe decrease in GFR 15-29 5 Kidney failure <15 (or dialysis) 26 Desirable <150 Borderline high 150-199 High 200-499 Very High >500 27 Desirable <200 Borderline high 200-239 High >239 28 Low <40 Desirable: 40-60 High: >60 29 Desirable: <100 mg/dL Near Optimal: 100-129 mg/dL Borderline High: 130-159 mg/dL High: 160-189 mg/dL Very High: >189 mg/dL 30 Because ethnic data is not always readily available, this report includes an eGFR for both -Americans and non- Americans. The National Kidney Disease Education Program (NKDEP) does not endorse the use of the MDRD equation for patients that are not between the ages of 18 and 70, are , have extremes of body size, muscle mass, or nutritional status, or are non- or non-. According to the National Kidney Foundation, irrespective of diagnosis, the stage of the disease is based on the level of kidney function: Stage Description GFR(mL/min/1.73 m(2)) 1 Kidney damage with normal or decreased GFR 90 2 Kidney damage with mild decrease in GFR 60-89 3 Moderate decrease in GFR 30-59 4 Severe decrease in GFR 15-29 5 Kidney failure <15 (or dialysis) 31 Because ethnic data is not always readily available, this report includes an eGFR for both -Americans and non- Americans. The National Kidney Disease Education Program (NKDEP) does not endorse the use of the MDRD equation for patients that are not between the ages of 18 and 70, are , have extremes of body size, muscle mass, or nutritional status, or are non- or non-. According to the National Kidney Foundation, irrespective of diagnosis, the stage of the disease is based on the level of kidney function: Stage Description GFR(mL/min/1.73 m(2)) 1 Kidney damage with normal or decreased GFR 90 2 Kidney damage with mild decrease in GFR 60-89 3 Moderate decrease in GFR 30-59 4 Severe decrease in GFR 15-29 5 Kidney failure <15 (or dialysis) 32 Desirable <150 Borderline high 150-199 High 200-499 Very High >500 33 Desirable <200 Borderline high 200-239 High >239 34 Low <40 Desirable: 40-60 High: >60 35 Desirable: <100 mg/dL Near Optimal: 100-129 mg/dL Borderline High: 130-159 mg/dL High: 160-189 mg/dL Very High: >189 mg/dL 36 Normal Range 180 to 914 Indeterminate Range 145 to 180 Deficient Range <145 37 Because ethnic data is not always readily available, this report includes an eGFR for both -Americans and non- Americans. The National Kidney Disease Education Program (NKDEP) does not endorse the use of the MDRD equation for patients that are not between the ages of 18 and 70, are , have extremes of body size, muscle mass, or nutritional status, or are non- or non-. According to the National Kidney Foundation, irrespective of diagnosis, the stage of the disease is based on the level of kidney function: Stage Description GFR(mL/min/1.73 m(2)) 1 Kidney damage with normal or decreased GFR 90 2 Kidney damage with mild decrease in GFR 60-89 3 Moderate decrease in GFR 30-59 4 Severe decrease in GFR 15-29 5 Kidney failure <15 (or dialysis) 38 Desirable <150 Borderline high 150-199 High 200-499 Very High >500 39 Desirable <200 Borderline high 200-239 High >239 40 Low <40 Desirable: 40-60 High: >60 41 Desirable <100 Near Optimal 100-129 Borderline high 130-159 High 160-189 Very High >189 42 FASTING 43 Serum levels of PSA measured using the [employer] DXI Hybritech immunoassay should not be interpreted as absolute evidence of the presence or absence of disease. The PSA value should be used in conjunction with other pertinent clinical diagnostic procedures. A PSA value in the range of 0.1 to 0.6 ng/ml is indeterminate if being used as an indicator of recurrent or residual disease. The values obtained with different assay methods or kits cannot be used interchangeably. 44 PT HAS PROCEDURE AT 1PM TODAY RUN TEST GRUPO 45 PT HAS PROCEDURE AT 1PM TODAY RUN TEST GRUPO 46 Because ethnic data is not always readily available, this report includes an eGFR for both -Americans and non- Americans. The National Kidney Disease Education Program (NKDEP) does not endorse the use of the MDRD equation for patients that are not between the ages of 18 and 70, are , have extremes of body size, muscle mass, or nutritional status, or are non- or non-. According to the National Kidney Foundation, irrespective of diagnosis, the stage of the disease is based on the level of kidney function: Stage Description GFR(mL/min/1.73 m(2)) 1 Kidney damage with normal or decreased GFR 90 2 Kidney damage with mild decrease in GFR 60-89 3 Moderate decrease in GFR 30-59 4 Severe decrease in GFR 15-29 5 Kidney failure <15 (or dialysis) 47 Because ethnic data is not always readily available, this report includes an eGFR for both -Americans and non- Americans. The National Kidney Disease Education Program (NKDEP) does not endorse the use of the MDRD equation for patients that are not between the ages of 18 and 70, are , have extremes of body size, muscle mass, or nutritional status, or are non- or non-. According to the National Kidney Foundation, irrespective of diagnosis, the stage of the disease is based on the level of kidney function: Stage Description GFR(mL/min/1.73 m(2)) 1 Kidney damage with normal or decreased GFR 90 2 Kidney damage with mild decrease in GFR 60-89 3 Moderate decrease in GFR 30-59 4 Severe decrease in GFR 15-29 5 Kidney failure <15 (or dialysis) 48 Because ethnic data is not always readily available, this report includes an eGFR for both -Americans and non- Americans. The National Kidney Disease Education Program (NKDEP) does not endorse the use of the MDRD equation for patients that are not between the ages of 18 and 70, are , have extremes of body size, muscle mass, or nutritional status, or are non- or non-. According to the National Kidney Foundation, irrespective of diagnosis, the stage of the disease is based on the level of kidney function: Stage Description GFR(mL/min/1.73 m(2)) 1 Kidney damage with normal or decreased GFR 90 2 Kidney damage with mild decrease in GFR 60-89 3 Moderate decrease in GFR 30-59 4 Severe decrease in GFR 15-29 5 Kidney failure <15 (or dialysis) 49 Because ethnic data is not always readily available, this report includes an eGFR for both -Americans and non- Americans. The National Kidney Disease Education Program (NKDEP) does not endorse the use of the MDRD equation for patients that are not between the ages of 18 and 70, are , have extremes of body size, muscle mass, or nutritional status, or are non- or non-. According to the National Kidney Foundation, irrespective of diagnosis, the stage of the disease is based on the level of kidney function: Stage Description GFR(mL/min/1.73 m(2)) 1 Kidney damage with normal or decreased GFR 90 2 Kidney damage with mild decrease in GFR 60-89 3 Moderate decrease in GFR 30-59 4 Severe decrease in GFR 15-29 5 Kidney failure <15 (or dialysis) Procedures Date CPT Code Description Status 05/16/2017 59803 EKG, Interpretation Only Completed 05/15/2017 72714 THR Total Hip Replacement Completed 05/15/2017 89822 THR Total Hip Replacement Completed 04/30/2017 76244 EKG Tracing & Interpretation Completed 04/21/2017 75390 Stress Test Completed 04/21/2017 79174 Myocardial Perfusion Imaging Tomographic (Spect) Completed Multiple Studies 03/03/2017 13423 EKG Tracing & Interpretation Completed 02/05/2017 27263 ECHO Transthoracic, Real-Time 2D With Doppler And Color Completed Flow 03/05/2016 74837 EKG Tracing & Interpretation Completed 01/31/2016 08513 ECHO Transthoracic, Real-Time 2D With Doppler And Color Completed Flow 02/08/2015 77155 EKG Tracing & Interpretation Completed 01/23/2015 29620 ECHO Transthoracic, Real-Time 2D With Doppler And Color Completed Flow 01/21/2014 29495 EKG Tracing & Interpretation Completed 12/30/2013 44765 ECHO Transthoracic, Real-Time 2D With Doppler And Color Completed Flow 03/22/2013 51102 EKG Tracing & Interpretation Completed 02/17/2013 21810 Cardioversion Completed 02/17/2013 53061 EKG Tracing & Interpretation Completed 02/17/2013 29982 EKG Tracing & Interpretation Completed 02/17/2013 52034 EKG, Interpretation Only Completed 12/18/2012 74001 ECHO Transthoracic, Real-Time 2D With Doppler And Color Completed Flow 07/23/2012 96025 EKG Tracing & Interpretation Completed 05/21/2012 36682 EKG Tracing & Interpretation Completed 05/13/2012 70466 EKG, Interpretation Only Completed 05/13/2012 43526 EKG Tracing & Interpretation Completed 05/13/2012 23376 Cardioversion Completed 04/27/2012 73584 EKG Tracing & Interpretation Completed 03/03/2012 63471 Polysomnography Sleep Staging 4+ Parameters W/Cpap Completed 01/16/2012 94606 Polysomnography Sleep Staging 4+ Parameters W/Cpap Completed 12/23/2011 88409 Polysomnography Sleep Staging 4+ Parameters Completed 12/23/2011 53787 Polysomnography Sleep Staging 4+ Parameters Completed 08/14/2009 81462 EKG, Interpretation Only Completed 08/14/2009 02642 Insert Non-Tunneled Venous Catether Completed Encounters Type Date Location Provider CPT E/M Dx Office Visit 12/19/2017 1:45p [facility] Jeimy Woodall M.D. 08867 G20 [facility] [place] F03.90 G40.909 Office Visit 12/01/2017 8:[facility]a [facility] Kristin Lynntory, [place] [address] G20 R60.0 I10 M10.9 S81.802D Z96.641 I48.0 G40.89 Office Visit 11/21/2017 9:15a [facility] Citlaly Riley D.O. 49432 G20 I48.0 M10.9 S81.802D Office Visit 10/24/2017 10:00a [facility] Alejandro Holland, 17869 M10.9 Delma Gage M10.031 M25.571 M06.4 Office Visit 10/09/2017 11:30a [facility] Citlaly Riley D.O. 99873 G20 Z96.641 M10.031 I48.0 Office Visit 08/22/2017 8:15a [facility] Kristin Twyla, [place] [address] G20 R60.0 R19.5 Z96.641 Office Visit 08/20/2017 8:30a [facility] [place] [address] R60.0 M25.531 M25.572 M25.571 Office Visit 08/18/2017 8:30a [facility] Kristin Leahtory, [place] [address]49 M10.031 L03.116 Office Visit 07/28/2017 8:00a [facility] Kristindillon [place], [place] [address] M25.531 R60.0 Office Visit 07/23/2017 8:15a [facility] [place] [address] M10.031 Office Visit 07/22/2017 9:00a [facility] [place] [address] M25.531 Office Visit 07/17/2017 11:30a [facility] [place] [address] R60.0 Office Visit 07/08/2017 8:30a [facility] Nasrin Nunez, [place] [address] K62.5 Office Visit 06/28/2017 9:15a [facility] Svitlana Mae M.D. 40419 M10.031 M10.071 R60.0 Z96.641 Office Visit 06/11/2017 8:45a [facility] Kristin [place], [facility] 33174 M25.531 Office Visit 06/03/2017 8:15a [facility] Citlaly Riley D.O. 59853 I48.0 G20 I10 G47.33 Z96.641 Office Visit 05/30/2017 8:00a [facility] Kristin [place], [facility] 86255 R60.0 M25.531 Z96.641 Office Visit 05/26/2017 12:40p [facility] [address] N17.9 Assoc,pc [place] Hospitalists I48.0 Z96.641 G20 Office Visit 05/25/2017 12:39p [facility]pc Savana Alba N.P. 49262 N17.9 Hospitalists I48.0 Z96.641 G20 Office Visit 05/24/2017 12:38p [facility]pc Savana Alba, N.P. 41030 N17.9 Hospitalists I48.0 Z96.641 G20 Office Visit 05/23/2017 12:38p [facility]pc Savana Alba N.P. 26507 N17.9 Hospitalists I48.0 Z96.641 G20 Office Visit 05/22/2017 12:37p [facility]pc Savana Alba N.P. 90337 N17.9 Hospitalists I48.0 Z96.641 G20 Office Visit 05/22/2017 2:04p [facility] [place] 57578 G93.40 Too Cesar Office Visit 05/21/2017 12:36p [facility],anthony Villasenor, 49541 Z96.641 Hospitalists PA G20 I48.0 N17.9 Office Visit 05/20/2017 10:16a [facility],pc SARAH Ramirez 40083 G20 Hospitalists I48.0 N17.9 Z96.641 Office Visit 05/19/2017 10:15a [facility],SARAH De La Vega 39562 G20 Hospitalists I48.0 N17.9 Z96.641 Office Visit 05/18/2017 10:14a [facility],pc SARAH Ramirez 86533 G20 Hospitalists I48.0 N17.9 Z96.641 Office Visit 05/18/2017 9:49a [facility] [place] 09147 G93.40 Too Cesar Office Visit 05/17/2017 10:13a [facility],pc Stepan Villasenor, 49863 G20 Hospitalists PA I48.0 N17.9 Z96.641 Office Visit 05/16/2017 10:13a [facility],pc SARAH Ramirez 24765 G20 Hospitalists I48.0 N17.9 Office Visit 05/15/2017 10:11a [facility] Margi, 81488 G20 Assoc, SARAH Hospitalists I48.0 G40.909 Z96.641 Office Visit 04/30/2017 11:30a [facility] Zuhair Elliott, 34061 I48.0 Delma Gage, [facility] M16.11 Z01.810 Office Visit 04/09/2017 3:00p [facility] Jeimy Woodall M.D. 34960 G40.209 Services Of Sustainability Analyst G20 Office Visit 03/24/2017 2:00p [facility] Shiela Avalos M.D. 60432 M25.551 C.M.A. M16.11 Office Visit 03/03/2017 1:15p [facility] Zuhair Elliott, 11517 I48.0 Delma Gage, [facility] Office Visit 01/22/2017 2:30p [facility] Jeimy Woodall M.D. 80870 G20 Services Of [employer]ustainability Analyst G25.81 G40.209 G31.84 Office Visit 12/06/2016 10:15a [facility] Shiela Avalos M.D. 58691 M16.11 C.M.A. M25.551 Office Visit 10/21/2016 2:00p [facility] Jeimy Woodall M.D. 83457 G20 Services Of Sustainability Analyst G25.81 G40.209 Office Visit 06/20/2016 2:30p [facility] Jeimy Woodall M.D. 84796 G20 Services Of Sustainability Analyst G25.81 G40.209 Z79.899 Office Visit 03/05/2016 2:00p [facility] Zuhair Elliott, 70806 I48.0 Delma Gage, NATHANAEL, [facility] Office Visit 10/19/2015 3:15p [facility] [address] G47.33 Services Of Sustainability Analyst E66.01 Office Visit 10/04/2015 11:00a [facility] Jeimy Woodall M.D. 78170 G20 Services Of [employer]ustainability Analyst G25.81 G40.209 F32.9 Office Visit 08/28/2015 1:00p [facility] Shiela Avalos M.D. 17091 M16.11 C.M.A. M25.551 M25.512 Office Visit 07/28/2015 10:30a [facility] Shiela Avalos M.D. 98058 M25.561 C.M.A. M25.551 M16.11 M25.461 Office Visit 03/29/2015 11:45a [facility] Jeimy Woodall M.D. 79225 G25.81 Services Of Sustainability Analyst G20 G40.009 Z79.899 Office Visit 02/28/2015 10:45a [facility] [place] [address] 327.23 Services Of Sustainability Analyst 278.00 Office Visit 02/08/2015 10:30a [facility] Zuhair Elliott, 19322 447.71 [facility] Gage, [facility] 401.9 Office Visit 12/08/2014 11:45a [facility] Jeimy Woodall M.D. 08761 345.40 Services Of Sustainability Analyst 332.0 333.94 Office Visit 10/10/2014 2:45p [facility] Jeimy Woodall M.D. 69511 345.40 Services Of Sustainability Analyst 333.1 332.0 Office Visit 07/08/2014 10:45a [facility] [place] [address] 327.23 Services Of Sustainability Analyst 278.00 Office Visit 05/18/2014 11:00a [facility] Jeimy Woodall M.D. 31360 345.40 Services Of Sustainability Analyst 333.1 Office Visit 04/19/2014 1:30p [facility] Pricila Altamirano, 11394 327.23 Services Of [facility] DNP, RN, [employer]- Office Visit 01/21/2014 10:45a [facility] Zuhair Brownlee Elliott, 92258 427.31 Sustainability Analyst Too, FACC, [facility] Office Visit 11/10/2013 11:00a [facility] Jeimy Woodall M.D. 77349 345.40 Services Of [facility] 333.1 780.79 Office Visit 03/22/2013 9:45a [facility] Brownlee Elliott, 28411 427.32 Sustainability Analyst Too, FACC, FASUT Office Visit 02/17/2013 12:39p [facility] Brownlee Elliott, 56758 427.32 Sustainability Analyst Too, FACC, FASUT Office Visit 12/28/2012 10:30a [facility] Brownlee Elliott, 50041 441.2 Sustainability Analyst Too, FACC, FASUT Office Visit 11/12/2012 11:30a [facility] Jeimy Woodall, 82483 345.40 Services Of Sustainability Analyst M.DNunu Office Visit 07/23/2012 11:30a [facility] Zuh[facility] Brownlee Elliott, 23019 785.1 Sustainability Analyst Too, FACC, [facility] 427.31 Office Visit 05/21/2012 10:30a [facility] Brownlee Elliott, 35641 427.31 Sustainability Analyst Too, FACC, FASUT Office Visit 05/13/2012 9:23a [facility] Brownlee Elliott, 53703 427.81 Sustainability Analyst Too, FACC, FASNC Office Visit 03/10/2012 9:54a [facility] Chip Cabrera 26740 327.23 Center M.D. Office Visit 01/27/2012 11:28a [facility] Chip Cabrera 58491 327.23 Center M.D. Office Visit 01/15/2012 11:25a [facility] Chip Cabrera 43027 327.23 Center M.D. Office Visit 08/19/2009 2:45a [facility], Clarita Ocampo, 34092 274.9 Hospitalists M.D. 715.90 Office Visit 08/18/2009 3:30a [facility], Clarita Ocampo, 99798 274.9 Hospitalists M.D. Office Visit 08/17/2009 12:45a [facility], Corey Anderson, 42353 585.6 Hospitalists M.D. 575.0 285.9 401.9 Office Visit 08/16/2009 12:30a [facility], Zaki Zepeda D.O. 53177 585.6 Hospitalists 575.0 285.9 401.9 Office Visit 08/15/2009 12:30a [facility], Alida Belcher.ONunu 92620 575.0 Hospitalists 458.9 276.2 285.9 518.0 Office Visit 08/14/2009 2:15a [facility], Alida Belcher.O. 36338 575.0 Hospitalists 518.81 584.9 458.9 285.9 345.90 278.00 Plan of Care Future Appointment(s):08/21/2018 3:15 pm - Jeimy Woodall M.D. at [facility]05/29/2018 3:00 pm - Jeimy Woodall M.D. at [facility] Of [facility]12/19/2017 - Jeimy Woodall M.D.G20 Parkinson's diseaseFollow up:please update HIPPA with son Juju Please schedule every 3 month visit. (30 min)F03.90 Unspecified dementia without behavioral disturbanceRecommendations:You can not drive. for memory: 1. Exercise 2. Hydration 3. Regular meals 4. Socialization 5. Sleep: goal is 8 hours.G40.909 Epilepsy, unsp, not intractable, without status epilepticus
--- NOTE | 2017-12-28 15:32 | RAD ---
INDICATION: Right ankle injury COMPARISON: None TECHNIQUE: AP, lateral, and oblique views were obtained. FINDINGS: There is no acute bony change. There is mild tibiotalar osteoarthritis. There are prominent heel spurs. There are extensive vascular calcifications. There is edema. IMPRESSION: NO ACUTE BONY FINDINGS.
--- NOTE | 2017-12-28 15:32 | RAD ---
INDICATION: Right foot pain COMPARISON: None TECHNIQUE: AP, lateral, and oblique views were obtained. FINDINGS: There is moderate underlying osteoarthritic change about the midfoot. There is moderate to advanced osteoarthritis but the first MTP joint. There is osteoarthritis but the tibiotalar joint. Diffuse edema is present over the dorsum of foot but there is also generalized foot and ankle edema. There are vascular calcifications. IMPRESSION: UNDERLYING OSTEOARTHRITIS. NO DEFINITIVE ACUTE FINDINGS. DEPENDENT EDEMA.
--- NOTE | 2017-12-28 15:32 | RAD ---
INDICATION: Right elbow pain COMPARISON: None TECHNIQUE: AP, lateral, and oblique views were obtained. FINDINGS: There is osteopenia. There are osteoarthritic changes about the coronoid process. There are mild irregularities about the medial and lateral condyles consistent with epicondylitis. There are mild irregularities about the radial head but there is no definitive fracture. There may been a remote injury. There is no fat-pad displacement. A true lateral was not included, however. IMPRESSION: NO DEFINITIVE FRACTURE. UNDERLYING OSTEOARTHRITIS. SUGGEST FOLLOW-UP INDICATED.
[2017-12-28 15:40] LABS: ABS Basophils 0.1 10^3/ul (0-0.2); ABS Eosinophils 0.1 10^3/ul (0-0.6); ABS Lymphocytes 1.7 10^3/ul (1.0-4.8); ABS Monocytes 1.1 10^3/ul (0-0.8); ABS Neutrophils 6.1 10^3/ul (1.5-7.7); ABS Nucleated RBC 0 10^3/ul; Eosinophil % 0.8 % (0-6); Hematocrit 36 % (42-52); Hemoglobin 12.2 g/dl (14.0-18.0); Lymphocyte % 18.4 % (25-47); Mean Corpuscular HGB Conc 34 g/dl (31-36); Mean Corpuscular Hemoglobin 33 pg (27-31); Mean Corpuscular Volume 100 fL (80-94); Mean Platelet Volume 7.7 um3 (7.4-10.4); Nucleated Red Blood Cells % 0; Platelet Count 179 10^3/ul (150-450); Red Blood Count 3.66 10^6/ul (4.00-5.40); Red Cell Distribution Width 15 % (10.5-15); White Blood Count 9.1 10^3/ul (3.5-10.8)
[2017-12-28 15:56] LABS: EGFR Non-African American 87.2 (>60)
[2017-12-28] MEDS: Colchicine* 0.6 MG TAB PO SCH (16:23)
[2017-12-28 18:39] LABS: Urine Appearance Clear; Urine Blood Negative (Negative); Urine Color Yellow; Urine Ketones Trace (Negative); Urine Protein Negative (Negative); Urine Specific Gravity 1.023 (1.010-1.030); Urine Urobilinogen Negative (Negative)
[2017-12-28] MEDS ORDERED: Ketorolac INJ* 30 MG/ML 1 ML VIAL IV PUSH ONE (19:56)
[2017-12-28 21:26] LABS: Uric Acid 3.5 mg/dL (4.4-7.6)
[2017-12-28] MEDS ORDERED: Morphine INJ* 2 MG/ML 1 ML CARPUJECT IV PRN (21:27)
[2017-12-28] MEDS ORDERED: Morphine VIAL* 4 MG/ML VIAL (1 ml vial) IV ONE ×2 (21:39)
--- NOTE | 2017-12-28 22:23 | ED ---
Blanca Lino Elizabeth, scribed for Ashlyn Boyer MD on 12/28/17 at 1421 . Lower Extremity - HPI Summary HPI Summary: This patient is a 77 year old M presenting to [facility] with a chief complaint of worsening difficulty ambulating since this morning. The patients son reports that the patient hit his right elbow on the side of the bed 2 days ago. The patient rates the pain 9/10 in severity. Symptoms aggravated by bearing weight. Symptoms alleviated by nothing. Patient reports pain in his right ankle, in his right calf, and in his right elbow since 1 day ago. The patients son also reports that the patients elbow is warm to the touch and the patients right calf is more erythematous than usual. Patient denies shortness of breath or any numbness or tingling. Patient has hx of gout in his wrists and the patients son notes that his symptoms are similar to a previous flare-up. The patient lives at [facility] and typically ambulates with the aid of a walker. Patient has hx of HTN and Parkinson's. - History of Current Complaint Chief Complaint: EDExtremityLower Stated Complaint: WEAKNESS Time Seen by Provider: 12/28/17 13:11 Hx Obtained From: Patient, Family/Assembly Line Worker - patient's son Mechanism Of Injury: Unknown Onset of Pain: Hours - since this morning Onset/Duration: Still Present - 2 days Severity Initially: Moderate Severity Currently: Moderate Pain Intensity: 9 Pain Scale Used: 0-10 Numeric Timing: Constant Location: Is Discrete @ - right elbow, right ankle Associated Signs And Symptoms: Positive: Swelling, Redness Aggravating Factor(s): Standing, Ambulation, Weight Bearing Alleviating Factor(s): Nothing Able to Bear Weight: No - Allergies/Home Medications Allergies/Adverse Reactions: Allergies Allergy/AdvReac Type Severity Reaction Status Date / Time Penicillins Allergy Hives Verified 10/16/17 15:28 PMH/Surg Hx/FS Hx/Imm Hx Endocrine/Hematology History: Reports: Hx Anticoagulant Therapy - aggregnox Cardiovascular History: Reports: Hx Hypercholesterolemia, Hx Hypertension, Other Cardiovascular Problems/Disorders - 2017 ANTI QUAGULATION MEDS Respiratory History: Reports: Hx Sleep Apnea - current CPAP user GI History: Reports: Hx Gall Bladder Disease, Other GI Disorders - CONSTIPATION AND DIARRHEA ISSUES IN THE PAST Musculoskeletal History: Reports: Hx Arthritis - ARTHRITIS IN KNEES AND HIPS Sensory History: Reports: Hx Cataracts, Hx Glaucoma - RIGHT, Hx Hearing Aid Denies: Hx Contacts or Glasses Opthamlomology History: Reports: Hx Cataracts, Hx Glaucoma - RIGHT Denies: Hx Contacts or Glasses Neurological History: Reports: Hx Seizures Psychiatric History: Reports: Hx Depression - ON MEDS after wifes - Surgical History Surgery Procedure, Year, and Place: cholecystectomy; bilat TKR; appendectomy; cateracts; right DORON Hx Anesthesia Reactions: No Infectious Disease History: No Infectious Disease History: Denies: Traveled Outside the [place] in Last 30 Days - Family History Known Family History: Positive: Unknown - Social History Alcohol Use: None Substance Use Type: Reports: None Smoking Status (MU): Never Smoked Tobacco Review of Systems Negative: Epistaxis Negative: Shortness Of Breath, Cough Negative: Vomiting Positive: Arthralgia - right ankle pain, right elbow pain, Myalgia - right calf pain, Edema - in right ankle, right calf All Other Systems Reviewed And Are Negative: Yes Physical Exam - Summary Physical Exam Summary: Appearance: Well-appearing, Well-nourished Skin: Warm Eyes: Normal ENT: Normal Neck: Supple, nontender Respiratory: Clear to auscultation Cardiovascular: Regular rate, regular rhythm. Normal S1, S2. Abdomen: Soft, nontender Musculoskeletal: Right olecranon erythema, tenderness, swelling. Right malleolar erythema, gendernalized tenderness, and swelling over the medial and lateral right ankle. Neurological: Normal, A&Ox3 Psychiatric: Normal General: No acute distress Triage Information Reviewed: Yes Vital Signs On Initial Exam: Initial Vitals Pulse Pulse Ox 65 93 12/28/17 12:59 12/28/17 12:59 Vital Signs Reviewed: Yes Diagnostics - Vital Signs Vital Signs Temp Pulse Resp BP Pulse Ox 12/28/17 13:01 65 92 12/28/17 13:00 98.6 F 65 18 108/48 92 12/28/17 12:59 65 93 - Laboratory Lab Results: Lab Results 12/28/17 12/28/17 12/28/17 Range/Units 15:32 15:32 18:02 WBC 9.1 (3.5-10.8) 10^3/ul RBC 3.66 L (4.00-5.40) 10^6/ul Hgb 12.2 L (14.0-18.0) g/dl Hct 36 L (42-52) % MCV 100 H (80-94) fL MCH 33 H (27-31) pg MCHC 34 (31-36) g/dl RDW 15 (10.5-15) % Plt Count 179 (150-450) 10^3/ul MPV 7.7 (7.4-10.4) um3 Neut % (Auto) 67.0 (38-83) % Lymph % (Auto) 18.4 L (25-47) % [place] % (Auto) 12.5 H (0-7) % Eos % (Auto) 0.8 (0-6) % Baso % (Auto) 1.3 (0-2) % Absolute Neuts (auto) 6.1 (1.5-7.7) 10^3/ul Absolute Lymphs (auto) 1.7 (1.0-4.8) 10^3/ul Absolute Monos (auto) 1.1 H (0-0.8) 10^3/ul Absolute Eos (auto) 0.1 (0-0.6) 10^3/ul Absolute Basos (auto) 0.1 (0-0.2) 10^3/ul Absolute Nucleated RBC 0 10^3/ul Nucleated RBC % 0 Sodium 138 (135-145) mmol/L Potassium 4.1 (3.5-5.0) mmol/L Chloride 104 (101-111) mmol/L Carbon Dioxide 30 (22-32) mmol/L Anion Gap 4 (2-11) mmol/L BUN 15 (6-24) mg/dL Creatinine 0.85 (0.67-1.17) mg/dL Est GFR ( Amer) 105.5 (>60) Est GFR (Non-Af Amer) 87.2 (>60) BUN/Creatinine Ratio 17.6 (8-20) Glucose 111 H (70-100) mg/dL Calcium 8.7 (8.6-10.3) mg/dL Total Bilirubin 0.40 (0.2-1.0) mg/dL AST 11 L (13-39) U/L ALT 4 L (7-52) U/L Alkaline Phosphatase 113 H (34-104) U/L Total Protein 5.8 L (6.4-8.9) g/dL Albumin 3.0 L (3.2-5.2) g/dL Globulin 2.8 (2-4) g/dL Albumin/Globulin Ratio 1.1 (1-3) Urine Color Yellow Urine Appearance Clear Urine pH 5.0 (5-9) Ur Specific [place] 1.023 (1.010-1.030) Urine Protein Negative (Negative) Urine Ketones Trace A (Negative) Urine Blood Negative (Negative) Urine Nitrate Negative (Negative) Urine Bilirubin Negative (Negative) Urine Urobilinogen Negative (Negative) Ur Leukocyte Esterase Negative (Negative) Urine Glucose Negative (Negative) Urine Ascorbic Acid * A (Negative) Result Diagrams: 12/28/17 15:32 12/28/17 15:32 Lab Statement: Any lab studies that have been ordered have been reviewed, and results considered in the medical decision making process. - Radiology Right Foot XR Xray Interpretation: No Acute Changes - IMPRESSION: UNDERLYING OSTEOARTHRITIS. NO DEFINITIVE ACUTE FINDINGS. DEPENDENT EDEMA. Dr. Boyer has reviewed this report. Radiology Interpretation Completed By: Radiologist Right Ankle XR Xray Interpretation: No Acute Changes - IMPRESSION: NO ACUTE BONY FINDINGS. Dr. Boyer has reviewed this report. Radiology Interpretation Completed By: Radiologist Right Elbow XR Xray Interpretation: No Acute Changes - IMPRESSION: NO DEFINITIVE FRACTURE. UNDERLYING OSTEOARTHRITIS. SUGGEST FOLLOW-UP INDICATED. Dr. Boyer has reviewed this report. Radiology Interpretation Completed By: Radiologist Lower Extremity Course/Dx - Course Course Of Treatment: Pt still cannot ambulate on his own after dose of solumerol and colchicine. XR right elbow and right ankle neg for fx. Spoke to Dr Andrews and erna admit for intractable pain for his current gouty flare - Diagnoses Provider Diagnoses: Gout flare, Intractable pain Discharge - Sign-Out/Discharge Documenting (check all that apply): Discharge/Admit/Transfer - Discharge Plan Condition: Stable Disposition: ADMITTED TO [facility] Discharge Disposition Comment: admit to [facility] [place] Referrals: Graeme Schwartz MD [Primary Care Provider] - The documentation as recorded by the Blanca queen Elizabeth accurately reflects the service I personally performed and the decisions made by Merlin fall Euni, MD.
--- NOTE | 2017-12-28 22:33 | HP ---
H&P (Free Text) History and Physical: PCP: Tawny Schwartz MD Date/Time: 12/28/2017 4820 CC: pain HPI: Mr Dewitt is a 77YO male HX Parkinsonism, AFIB, seizure disorder, HTN, MICHAEL, gout who presents with onset this AM of R elbow and R ankle pain. He recalls bumping his R elbow yesterday and states this feels like his previous attacks of gout. The pain and swelling are preventing him from being able to ambulate despite 2 doses of IV analgesics in ED. He denies chest pain, abdominal pain, SOB, palpitations, N/V/D, F/C, cough, congestion, changes in bowel/bladder, or other issues. PMedHx Parkinsonism AFIB seizure disorder HTN MICHAEL gout Ambulatory Orders Nursing to reconcile. Dabigatran CAP(NF) [Pradaxa CAP(NF)] 150 mg PO BID 04/23/12 Diphenhydramine-Acetaminophen [Tylenol Pm Extra Strength] 1 tab PO BEDTIME PRN 04/23/[address] TAB(*) [Depakote DR TAB(*)] 1,500 mg PO BEDTIME 04/23/12 Hydrochlorothiazide TAB* [Hydrodiuril TAB*] 25 mg PO QAM 04/23/12 Metoprolol Tartrate TAB* [Lopressor TAB*] 125 mg PO QAM 04/23/12 amLODIPine TAB* [Norvasc 5 mg TAB*] 10 mg PO QAM 04/23/12 Propafenone ER (NF) [Rythmol SR (NF)] 425 mg PO BID 08/11/12 Anti Diarrhea Medication 1 cap PO Q6HR PRN 01/07/14 Methylcellulose [Citrucel] 1 tab PO QAM 01/07/14 Allopurinol TAB* [Zyloprim 100 MG TAB*] 200 mg PO QAM 04/28/17 Cabidopa-Levodopa 1.5 tab PO TID 04/28/[address] CAP* [Cymbalta CAP*] 60 mg PO QAM 04/28/17 Timolol 0.5% OPTH.HAMIDA* [Timoptic 0.5% Opth*] 1 drop RIGHT EYE QPM 04/28/17 Colchicine* [Colcrys*] 0.6 mg PO BID #0 tab 05/26/17 traMADol TAB* [Ultram*] 50 mg PO Q8H PRN tab MDD 150 mg 05/26/17 Allergies Penicillins Allergy (Verified 10/16/17 15:28) Hives PSurgHx cataract extraction cholecystectomy appendectomy R DORON B TKA SocHx: no tobacco, alcohol, or recreational drugs; lives alone; full code status FamHx: positive for prostate CA & breast CA ROS: as above, otherwise reviewed and all were negative vitals: Vital Signs Temp 37.0 C 12/28/17 13:00 Pulse 66 12/28/17 18:29 Resp 18 12/28/17 21:44 BP 105/50 12/28/17 21:29 Pulse Ox 91 12/28/17 18:29 Intake & Output 12/27/17 12/28/17 12/28/17 23:59 11:59 23:59 Intake Total 4 Balance 4 Weight 108.862 kg Intake: IV Fluids 2 IVPB 2 Constitutional: NAD, normally developed, overweight elderly white male HEENM: atraumatic; sclera/conjunctiva: anicteric/clear; hearing: clinically mildly decreased; oropharynx: clear, mucosa moist Neck: soft tissue: non-tender; thyroid: normal Pulmonary: clear to auscultation bilaterally, good aeration, no accessory muscle use CV: RR/RR, normal S1S2, no carotid bruit, no jugular venous distention, 2+ B DP/ PT, 1+ LLE/2+ RLE edema, 1+ R elbow edema Abdominal: soft, non-distended, non-tender, no rebound/guarding/rigidity, normoactive bowel sounds, no hepatosplenomegaly or masses, no costovertebral angle tenderness Musculoskeletal: general: grossly intact, moderately tender R Integumental: normal appearance and texture of exposed skin Psychiatric orientation: AA&O to PP, mostly situation affect: calm mood: cooperative eye contact: good content: mostly reliable (initially stated it was his hip bothering him, but corrected when his son spoke up) memory: mildly off ? recent pain medication responses: timely insight: fair to good Testing: Lab Results 12/28/17 12/28/17 12/28/17 Range/Units 15:32 15:32 18:02 WBC 9.1 (3.5-10.8) 10^3/ul RBC 3.66 L (4.00-5.40) 10^6/ul Hgb 12.2 L (14.0-18.0) g/dl Hct 36 L (42-52) % MCV 100 H (80-94) fL MCH 33 H (27-31) pg MCHC 34 (31-36) g/dl RDW 15 (10.5-15) % Plt Count 179 (150-450) 10^3/ul MPV 7.7 (7.4-10.4) um3 Neut % (Auto) 67.0 (38-83) % Lymph % (Auto) 18.4 L (25-47) % [place] % (Auto) 12.5 H (0-7) % Eos % (Auto) 0.8 (0-6) % Baso % (Auto) 1.3 (0-2) % Absolute Neuts (auto) 6.1 (1.5-7.7) 10^3/ul Absolute Lymphs (auto) 1.7 (1.0-4.8) 10^3/ul Absolute Monos (auto) 1.1 H (0-0.8) 10^3/ul Absolute Eos (auto) 0.1 (0-0.6) 10^3/ul Absolute Basos (auto) 0.1 (0-0.2) 10^3/ul Absolute Nucleated RBC 0 10^3/ul Nucleated RBC % 0 Sodium 138 (135-145) mmol/L Potassium 4.1 (3.5-5.0) mmol/L Chloride 104 (101-111) mmol/L Carbon Dioxide 30 (22-32) mmol/L Anion Gap 4 (2-11) mmol/L BUN 15 (6-24) mg/dL Creatinine 0.85 (0.67-1.17) mg/dL Est GFR ( Amer) 105.5 (>60) Est GFR (Non-Af Amer) 87.2 (>60) BUN/Creatinine Ratio 17.6 (8-20) Glucose 111 H (70-100) mg/dL Uric Acid 3.5 L (4.4-7.6) mg/dL Calcium 8.7 (8.6-10.3) mg/dL Total Bilirubin 0.40 (0.2-1.0) mg/dL AST 11 L (13-39) U/L ALT 4 L (7-52) U/L Alkaline Phosphatase 113 H (34-104) U/L Total Protein 5.8 L (6.4-8.9) g/dL Albumin 3.0 L (3.2-5.2) g/dL Globulin 2.8 (2-4) g/dL Albumin/Globulin Ratio 1.1 (1-3) Urine Color Yellow Urine Appearance Clear Urine pH 5.0 (5-9) Ur Specific [employer] 1.023 (1.010-1.030) Urine Protein Negative (Negative) Urine Ketones Trace A (Negative) Urine Blood Negative (Negative) Urine Nitrate Negative (Negative) Urine Bilirubin Negative (Negative) Urine Urobilinogen Negative (Negative) Ur Leukocyte Esterase Negative (Negative) Urine Glucose Negative (Negative) Urine Ascorbic Acid * A (Negative) XRY elbow, personally reviewed: IMPRESSION: NO DEFINITIVE FRACTURE. UNDERLYING OSTEOARTHRITIS. SUGGEST FOLLOW-UP INDICATED. XRY ankle, personally reviewed: IMPRESSION: NO ACUTE BONY FINDINGS. XRY foot, personally reviewed: IMPRESSION: UNDERLYING OSTEOARTHRITIS. NO DEFINITIVE ACUTE FINDINGS. DEPENDENT EDEMA. Impression: 77M HX Parkinsonism, AFIB, seizure disorder, HTN, MICHAEL, gout presents with intractable pain suspected 2nd acute gout attack DIAGNOSIS & PLAN Primary intractable R elbow & ankle pain suspected 2nd acute gout attack : given 30mg IV ketoroac, 125mg methylprednisolone, & 4mg IV morphine in ED : continue pain control : check ESR & CRP : PT evaluation : consider US R U&L extremities in AM, if no improvement : supportive care Secondary Parkinsonism : review meds once reconciled AFIB : review meds once reconciled seizure disorder : review meds once reconciled HTN : review meds once reconciled MICHAEL : intolerant of CPAP : uses 1.5L HS oxygen, continue gout : review meds once reconciled Admission Rational: observation for intractable pain DVTp: continue dabigatran, SCDs Code Status: full HCP: sonLionel
[2017-12-28] MEDS ORDERED: Melatonin 3 MG TAB PO PRN (23:19)
[2017-12-28] MEDS ORDERED: oxyCODONE TAB* 5 MG TAB PO PRN (23:19)
[2017-12-28] MEDS ORDERED: Ondansetron ODT TAB* 4 MG PO PRN (23:21)
[2017-12-28] MEDS ORDERED: Ibuprofen TAB* 400 MG PO PRN (23:21)
[2017-12-29] MEDS ORDERED: Divalproex DR TAB(*) 500 MG PO SCH (01:00)
[2017-12-29] MEDS ORDERED: PROPAFENONE 225 MG PO ONE (01:00)
[2017-12-29] MEDS: CMCS: Dabigatran CAP(NF) 150 MG CAP PO SCH ×2 (02:15→09:31)
[2017-12-29] MEDS ORDERED: Omeprazole CAP* 20 MG PO SCH (06:00)
[2017-12-29 07:07] LABS: ABS Basophils 0 10^3/ul (0-0.2); ABS Eosinophils 0 10^3/ul (0-0.6); ABS Lymphocytes 1.5 10^3/ul (1.0-4.8); ABS Monocytes 0.1 10^3/ul (0-0.8); ABS Neutrophils 8.6 10^3/ul (1.5-7.7); ABS Nucleated RBC 0 10^3/ul; Eosinophil % 0 % (0-6); Hematocrit 36 % (42-52); Hemoglobin 12.2 g/dl (14.0-18.0); Lymphocyte % 14.4 % (25-47); Mean Corpuscular HGB Conc 34 g/dl (31-36); Mean Corpuscular Hemoglobin 33 pg (27-31); Mean Corpuscular Volume 99 fL (80-94); Mean Platelet Volume 7.7 um3 (7.4-10.4); Nucleated Red Blood Cells % 0.1; Platelet Count 194 10^3/ul (150-450); Red Blood Count 3.67 10^6/ul (4.00-5.40); Red Cell Distribution Width 15 % (10.5-15); White Blood Count 10.2 10^3/ul (3.5-10.8)
[2017-12-29 07:25] LABS: EGFR Non-African American 75.8 (>60)
[2017-12-29] MEDS ORDERED: Metoprolol Succinate XL TAB* 100 MG PO SCH (09:00)
[2017-12-29] MEDS ORDERED: amLODIPine TAB* 5 MG PO SCH (09:00)
[2017-12-29] MEDS ORDERED: Docusate CAP* 100 MG PO SCH (09:00)
[2017-12-29] MEDS ORDERED: DULoxetine DR CAP* 60 MG CAP.DR PO SCH (09:00)
[2017-12-29] MEDS ORDERED: Hydrochlorothiazide TAB* 25 MG PO SCH (09:00)
[2017-12-29] MEDS: Carbidopa/Levodop 10/100 MG TAB(*) PO SCH ×2 (09:31→14:46)
[2017-12-29] MEDS: PROPAFENONE 425 MG PO SCH ×2 (09:41→12:11)
[2017-12-29] MEDS: Colchicine* 0.6 MG TAB PO SCH (11:19)
--- NOTE | 2017-12-29 11:41 | PN ---
Subjective Date of Service: 12/29/17 Interval History: Seen this AM with daughter at bedside Elbow and ankle improved but he was unable to stand and walk with PT today Not requiring pain medications unless walking Feels LE are more swollen x months Objective Active Medications: Amlodipine Besylate (Norvasc Tab*) 10 mg PO QAM [facility] Last Admin: 12/29/17 09:29 Dose: 10 mg Carbidopa/Levodopa (Sinemet 10/100 Tab(*)) 1 tab PO TID [facility] Last Admin: 12/29/17 09:31 Dose: 1 tab Colchicine (Colcrys*) 0.6 mg PO DAILY [facility] Last Admin: 12/29/17 11:19 Dose: 0.6 mg Dabigatran (Pradaxa Cap(Nf)) 150 mg PO BID [facility] Last Admin: 12/29/17 09:31 Dose: 150 mg Divalproex Sodium (Depakote Dr Tab(*)) 1,500 mg PO BEDTIME [facility] Last Admin: 12/29/17 02:16 Dose: Not Given Docusate Sodium (Colace Cap*) 200 mg PO BID [facility] Last Admin: 12/29/17 09:29 Dose: 200 mg Duloxetine HCl (Cymbalta Cap*) [facility] [place] Admin: 12/29/17 09:31 Dose: 60 mg Hydrochlorothiazide (Hydrodiuril Tab*) [facility] [place] Admin: 12/29/17 09:30 Dose: 25 mg Ibuprofen (Motrin Tab*) 400 mg PO Q6H PRN PRN Reason: pain Melatonin (Melatonin) 3 mg PO BEDTIME PRN; Protocol PRN Reason: Sleep Metoprolol Succinate (Toprol Xl Tab*) [facility] [place] Admin: 12/29/17 09:30 Dose: 100 mg Omeprazole (Prilosec Cap*) 20 mg PO DAILY@0600 [facility] Last Admin: 12/29/17 05:53 Dose: 20 mg Ondansetron HCl (Zofran Odt Tab*) 4 mg PO Q6H PRN PRN Reason: n/v Oxycodone HCl (Roxycodone Tab*) 5 mg PO Q4H PRN PRN Reason: PAIN Propafenone HCl (Rythmol Er (Nf)) 425 mg PO BID [facility] Last Admin: 12/29/17 09:41 Dose: Not Given Timolol Maleate (Timoptic 0.5% Opth*) 1 drop RIGHT EYE QPM [facility]USH[facility] Vital Signs - 8 hr 12/29/17 12/29/17 04:10 07:38 Temperature 97.9 F 97.9 F Pulse Rate 60 61 Respiratory 16 16 Rate Blood Pressure 145/44 119/53 (mmHg) O2 Sat by Pulse 94 91 Oximetry Oxygen Devices in Use Now: None Appearance: NAD Eyes: No Scleral Icterus, PERRLA Ears/Nose/Mouth/Throat: Clear Oropharnyx, Mucous Membranes Moist Neck: NL Appearance and Movements; NL JVP, Trachea Midline Respiratory: Symmetrical Chest Expansion and Respiratory Effort, Clear to Auscultation Cardiovascular: RRR Abdominal: NL Sounds; No Tenderness; No Distention, No Hepatosplenomegaly Lymphatic: No Cervical Adenopathy Extremities: - - 2+ LE edema Skin: - - left pre tibial ulcer, dry, no cellulitis Neurological: Alert and Oriented x 3, - - difficult hearing Result Diagrams: 12/29/17 06:47 12/29/17 06:47 Additional Lab and Data: Lab Results 12/28/17 12/28/17 12/28/17 Range/Units 15:32 15:32 18:02 WBC 9.1 (3.5-10.8) 10^3/ul RBC 3.66 L (4.00-5.40) 10^6/ul Hgb 12.2 L (14.0-18.0) g/dl Hct 36 L (42-52) % MCV 100 H (80-94) fL MCH 33 H (27-31) pg MCHC 34 (31-36) g/dl RDW 15 (10.5-15) % Plt Count 179 (150-450) 10^3/ul MPV 7.7 (7.4-10.4) um3 Neut % (Auto) 67.0 (38-83) % Lymph % (Auto) 18.4 L (25-47) % [place] % (Auto) 12.5 H (0-7) % Eos % (Auto) 0.8 (0-6) % Baso % (Auto) 1.3 (0-2) % Absolute Neuts (auto) 6.1 (1.5-7.7) 10^3/ul Absolute Lymphs (auto) 1.7 (1.0-4.8) 10^3/ul Absolute Monos (auto) 1.1 H (0-0.8) 10^3/ul Absolute Eos (auto) 0.1 (0-0.6) 10^3/ul Absolute Basos (auto) 0.1 (0-0.2) 10^3/ul Absolute Nucleated RBC 0 10^3/ul Nucleated RBC % 0 Sodium 138 (135-145) mmol/L Potassium 4.1 (3.5-5.0) mmol/L Chloride 104 (101-111) mmol/L Carbon Dioxide 30 (22-32) mmol/L Anion Gap 4 (2-11) mmol/L BUN 15 (6-24) mg/dL Creatinine 0.85 (0.67-1.17) mg/dL Est GFR ( Amer) 105.5 (>60) Est GFR (Non-Af Amer) 87.2 (>60) BUN/Creatinine Ratio 17.6 (8-20) Glucose 111 H (70-100) mg/dL Calcium 8.7 (8.6-10.3) mg/dL Total Bilirubin 0.40 (0.2-1.0) mg/dL AST 11 L (13-39) U/L ALT 4 L (7-52) U/L Alkaline Phosphatase 113 H (34-104) U/L Total Protein 5.8 L (6.4-8.9) g/dL Albumin 3.0 L (3.2-5.2) g/dL Globulin 2.8 (2-4) g/dL Albumin/Globulin Ratio 1.1 (1-3) Urine Color Yellow Urine Appearance Clear Urine pH 5.0 (5-9) Ur Specific [place] 1.023 (1.010-1.030) Urine Protein Negative (Negative) Urine Ketones Trace A (Negative) Urine Blood Negative (Negative) Urine Nitrate Negative (Negative) Urine Bilirubin Negative (Negative) Urine Urobilinogen Negative (Negative) Ur Leukocyte Esterase Negative (Negative) Urine Glucose Negative (Negative) Urine Ascorbic Acid * A (Negative) Assess/Plan/Problems-Billing Assessment: 77 yo M h/o gout, afib, seizure d/o, HTN, MICHAEL, parkinsonism p/w right elbow and right foot/ankle pain - Patient Problems (1) Pain Comment: Describes fall with elbow strike. Predominantly used right foot to stand. Suspect ankle strain in setting of fall 2/2 parkinsons. Gout in setting of trauma possible with rapid improvement s/p high dose steroids IV c/w allopurinol, colchicine oxycodone PRN PT/OT Ice to right foot/ankle (2) Parkinsons disease Comment: Continue sinemet. walks with walker at baseline suspect contributed to fall (3) Paroxysmal A-fib Comment: Continue Metoprolol and Propafenone. (4) Seizure disorder Comment: Continue depakote, seizure precautions. (5) DVT prophylaxis Comment: Pradaxa
[2017-12-29 16:42] VITALS: BP 122/50
[2017-12-29] MEDS ORDERED: Timolol 0.5% OPTH.SOL* BTL RIGHT EYE SCH (18:00)
--- NOTE | 2017-12-30 03:49 | DS ---
CC: Dr. Schwartz * DISCHARGE SUMMARY: DATE OF ADMISSION: 12/28/17 DATE OF DISCHARGE: 12/29/17 PRIMARY CARE PROVIDER: Dr. Schwartz. FOLLOWUP: With Dr. Schwartz today at 04:30 p.m. PRIMARY DIAGNOSES: Right elbow and right ankle pain. SECONDARY DIAGNOSES: Include: 1. Parkinsonism with mild dementia. 2. Atrial fibrillation. 3. Seizure disorder. 4. Hypertension. 5. Obstructive sleep apnea. 6. Gout. MEDICATIONS ON DISCHARGE: Unchanged from admission, include: 1. Tramadol 50 mg every 8 hours as needed. 2. Amlodipine 10 mg daily. 3. Timolol eyedrops 0.5% right eye in the evening. 4. Propafenone 425 mg twice daily. 5. Metoprolol tartrate 125 mg daily. 6. Methylcellulose 1 tab daily. 7. Hydrochlorothiazide 25 mg daily. 8. Depakote 1500 mg at bedtime. 9. Tylenol PM 1 tab bedtime as needed. 10. Dabigatran 150 mg twice daily. 11. Duloxetine 60 mg in the morning. 12. Colchicine 0.6 mg twice daily. 13. Carbidopa levodopa 1.5 mg every 3 hours. 14. Antidiarrheal medication as needed every 6 hours. 15. Allopurinol 200 mg in the morning. PERTINENT LABORATORY DATA: ESR 33, CRP 76, white blood cell count 9.1, 67% neutrophils. PERTINENT IMAGING: Ankle, elbow, and foot plain films without evidence of fracture, but with evidence of osteoarthritis. HISTORY OF PRESENT ILLNESS AND HOSPITAL COURSE: This is a 77-year-old man with past medical history as outlined in the history of present illness on the day of admission, presented to the hospital with about a week of decreasing exertional tolerance, unclear to identify limited by what, although daughter indicates has had bilateral lower extremity edema for at least 1 week and then yesterday or the day before (history is varying) had a fall and hit his right elbow on the railing of his bed without head strike or loss of consciousness. He had worsening right elbow and right ankle pain and presented to the emergency room where he required IV analgesics and was admitted to the hospital for pain control. He received ketorolac as well as a 125 mg IV methylprednisolone and several doses of morphine with last dose prior to midnight on the day prior to discharge with resolution of his right elbow pain and his right ankle pain. On my exam on the day of discharge, there was no erythema on the right elbow nor the right ankle and he had no pain with passive or active range of motion or palpation. No effusions. He notes his pain was similar to previous history of gouty pain, although his resolution was faster. I discussed at length with patient and his daughter that he should maintain his legs elevated when in bed and compression stockings when out of bed to target improvement in his lower extremity edema. He is to continue allopurinol and colchicine without change from home medication. I suspected that his pain was potentially of mild gouty flare in the setting of trauma with fall and having potentially twisting of his ankle, had resolved on the day of discharge. He is to follow up with Dr. Schwartz today. I encouraged and discussed further interrogation of his lower extremity edema if necessary, although first line of therapy would remain elevation of his legs and compression stockings. The patient's daughter acknowledged understanding. Additionally of note, he has an approximately 2 cm healing ulcer in his pretibial region of his left lower extremity, which he obtained from a fall while he was at [facility]. There is no evidence of cellulitis or infection surrounding this area. Reasons to return to the hospital included, but not limited to recurrent or worsening symptoms including chest pain, shortness of breath, nausea, vomiting, lightheadedness, fevers, chills, night sweats, erythema, worsening pain in any of his joints, inability to obtain or tolerate medications, bleeding from any source discussed with the patient and his daughter, they acknowledged understanding. TIME SPENT: Greater than 60 minutes were spent on discharge of this patient, greater than half the time spent [id number] with the patient. [id number]/[facility] #: [id number] [facility]
== END 2017-12-29 17:49 | disposition home or self-care (01) ==
LOC: ED 12:49 → MED 22:17
PROVIDERS: ADMIT Hospitalist; ATTEND Internal Medicine
DX: M25.521 Pain in right elbow (principal); M25.571 Pain in right ankle and joints of right foot; M10.9 Gout, unspecified; G31.83 Neurocognitive disorder with Lewy bodies; F02.80 Dementia in other diseases classified elsewhere, unspecified severity, without behavioral disturbance, psychotic disturbance, mood disturbance, and anxiety; I48.91 Unspecified atrial fibrillation; I10 Essential (primary) hypertension; G47.33 Obstructive sleep apnea (adult) (pediatric)
CPT/HCPCS: 36415; 80048; 80053; 81003; 84550; 85025; 85652; 86140; 96365; 96375; 99285; A9270-GY; G0378; G8978-GP-CL; G8979-GP-CI; G8987-GO-CJ; G8988-GO-CI; J1885; J2270; J2930

== ENCOUNTER 2018-01-27 09:37 | Inpatient (IN) | payer MEDICARE, OTHER ==
--- OUTSIDE RECORDS SUMMARY | 2018-01-27 10:04 | XMS REPORT ---
:1940 External Reference #:[id number] Author Organization [facility] Address [address] [place] [address] Phone [phone] Care Team Providers Name Role Phone Graeme Schwartz M.D. 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 Active stage Onset: 04/11/2015 Presence of intraocular lens Alejandro Shelton M.D. Active Onset: Gout Active Onset: Decreased hearing Active Onset: 05/07/2016 Bilateral primary open angle glaucoma Alejandro Shelton M.D. Active Onset: 11/12/2016 Bilateral primary open angle glaucoma Alejandro Shelton M.D. 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 Family History Date Family Member(s) Problem(s) Comments General No Current Problems Social History Type Date Description Comments Marital Status Legal Status: Occupation [employer] Work[employer] Work Status Retired ETOH Use Denies alcohol use Smoking Patient has never smoked Recreational Drug Use Denies Drug Use Daily Caffeine Does Not Consume Caffeine Allergies, Adverse Reactions, Alerts Date Description Reaction Status Severity Comments 10/03/2014 Penicillin active Medications Medication Date Status Form Strength Qnty SIG Indications Ordering Provider Timolol Maleate 08/28/ Active GFS 0.5% 90 1 drop Alejandro Carcamo Ophthalmic Gel 2012 right eye Skyler Shelton every day M.DNunu Cholestyramine / Active Packet 4gm Unknown 0000 Pradaxa / Active Capsules 150mg Unknown 0000 Amlodipine / Active Tablets 10mg Unknown Besylate 0000 Allopurinol / Active Tablets 100mg Unknown 0000 Propafenone HCL / Active Caps ER 425mg Unknown ER 0000 12HR Metoprolol / Active Tablets ER 100mg Unknown Succinate ER 0000 24HR Colcrys / Active Tablets 0.6mg Unknown 0000 Nystatin-Triamci / Active Ointment 840135-4. Unknown nolone 0000 1Unit/GM- % Duloxetine HCL / Active Caps DR 60mg Unknown 0000 Part Tramadol HCL / Active Tablets 50mg Unknown 0000 Carbidopa-Levodo / Active Tablets 10-100mg Unknown pa 0000 Divalproex / Active Tablets DR 500mg Unknown Sodium 0000 Ra Vitamin D-3 / Active Tablets 1000Unit take 1 Unknown 0000 tablet by mouth once daily for Supplement Betamethasone / Hx Cream 0.05% apply to Unknown Dipropionate 0000 - affected 10/29/ area twice 2016 a day if needed Results Description No Information Procedures Date CPT Code Description Status 06/19/2017 91470 Patient No Show For Appt Completed 11/12/2016 08442 Visual Field Exam Extended Completed 11/12/2016 74593 Est Patient Intermediate Exam Completed 05/07/2016 69378 Scanning Computerized Ophthalmic Diagnostic Imag Completed Posterior Seg On 05/07/2016 02698 Est Patient Comprehensive Exam Completed 10/31/2015 91470 Visual Field Exam Extended Completed 10/31/2015 04011 Est Patient Intermediate Exam Completed 04/11/2015 34133 Fundus Photography With Interpretation And Report Completed 04/11/2015 13528 Est Patient Comprehensive Exam Completed 10/03/2014 71222 Visual Field Exam Extended Completed 10/03/2014 13551 Gonioscopy Completed 10/03/2014 14903 Est Patient Intermediate Exam Completed 04/01/2014 11418 Est Patient Comprehensive Exam Completed 04/01/2014 55442 Visual Field Exam Extended Completed 04/01/2014 33106 Fundus Photography With Interpretation And Report Completed 09/21/2013 42787 Est Patient Intermediate Exam Completed 09/17/2013 00793 Visual Field Exam Extended Completed 03/30/2013 38285 Scanning Computerized Ophthalmic Diagnostic Imag Completed Posterior Seg On 03/30/2013 50796 Est Patient Comprehensive Exam Completed 09/29/2012 71574 Visual Field Exam Extended Completed 09/29/2012 61814 Est Patient Intermediate Exam Completed 03/31/2012 67840 Est Patient Intermediate Exam Completed 01/13/2012 55078 Visual Field Exam Extended Completed 12/31/2011 47523 Scanning Computerized Ophthalmic Diagnostic Imag Completed Posterior Seg On 12/31/2011 57885 Est Patient Intermediate Exam Completed 06/25/2011 09281 Fundus Photography With Interpretation And Report Completed 06/25/2011 41582 Visual Field Exam Extended Completed 06/25/2011 51975 Est Patient Intermediate Exam Completed 01/08/2011 15725 Est Patient Intermediate Exam Completed 01/08/2011 36616 Visual Field Exam Extended Completed 07/05/2010 99230 Scanning Laser W/Interp And Report Completed 07/05/2010 37929 Est Patient Comprehensive Exam Completed 12/26/2009 77247 Visual Field Exam Extended Completed 12/26/2009 07226 Est Patient Comprehensive Exam Completed 06/27/2009 14090 Scanning Laser W/Interp And Report Completed 06/27/2009 56653 Est Patient Intermediate Exam Completed 12/07/2008 28796 Fundus Photography With Interpretation And Report Completed 12/07/2008 43760 Visual Field Exam Extended Completed 12/07/2008 09294 Est Patient Intermediate Exam Completed 09/20/2008 30963 Trabeculoplasty By Laser Surgery Completed 07/26/2008 40021 Trabeculoplasty By Laser Surgery Completed 06/28/2008 86441 Visual Field Exam Extended Completed 05/20/2008 83510 Visual Field Exam Extended Completed 05/20/2008 34994 Est Patient Intermediate Exam Completed 01/13/2008 70984 Est Patient Intermediate Exam Completed 10/14/2007 17633 Visual Field Exam Extended Completed 10/14/2007 65755 Est Patient Intermediate Exam Completed 07/10/2007 33833 Scanning Laser W/Interp And Report Completed 01/29/2007 94514 Est Patient Intermediate Exam Completed 10/29/2006 86576 Extracapsular Cataract Extraction W/Intraocular Lens Completed 10/23/2006 51938 Ophthalmic Biometry Completed 10/22/2006 55449 Extracapsular Cataract Extraction W/Intraocular Lens Completed 10/17/2006 95040 Ophthalmic Biometry Completed 10/17/2006 42342 Computerized Corneal Topography Completed 09/17/2006 49479 Scanning Laser W/Interp And Report Completed 09/17/2006 88959 Visual Field Exam Extended Completed 09/17/2006 41829 Pachymetry Completed 09/11/2006 35904 Fundus Photography With Interpretation And Report Completed 09/11/2006 51429 New Patient Intermediate Exam Completed Encounters Type Date Location Provider CPT E/M Dx Office Visit 10/22/2013 10:15a Alejandro Shelton MD, Estela Yadav O.D. [id number] 365.73 pc Office Visit 03/10/2009 8:45a Alejandro Shelton MD, Alejandro Shelton, 76627 365.11 pc M.D. Office Visit 11/04/2008 9:00a Alejandro Shelton MD, Alejandro Shelton, 93613 365.11 pc M.D. Office Visit 09/08/2008 10:30a Alejandro Shelton MD, Alejandro Shelton, 03946 365.11 pc M.D. Office Visit 06/28/2008 9:45a Alejandro Shelton MD, Alejandro Shelton, 77706 365.11 pc M.D. Office Visit 07/10/2007 10:15a Alejandro Shelton MD, Alejandro Shelton, 43902 365.11 pc M.D. Office Visit 09/25/2006 9:15a Alejandro Shelton MD, Alejandro Shelton, 54066 365.11 anthony Gage Plan of Care 01/02/2018 - Alejandro Shelton M.D.[id number] Primary open-angle glaucoma, bilateral, moderate stageComments:Smoking can increase the risk of developing or worsening any eye related disease, as well as affect your overall health. If you are a smoker, we strongly recommend that you quit.If you are not a smoker , we strongly recommend that you do not start. Your glaucoma is stable at this time.Your eye pressure is within an acceptable range, and your testing does not show any further deterioration at this time. Please continue your treatment.Follow up:6 Month Follow Up DFE/IOP Photos You can expect to have your eyes dilated at your next visit. If Dr. Shelton orders any additional testing , it may require extra time. We recommend that you bring sunglasses, as dilation drops often make you light sensitive until they wear off. We always recommend you bring someone to drive you home if you are uncomfortable driving with your eyes dilated. If you have any questions before your next visit, feel free to call our office at .[email or web address]. Presence of intraocular lensComments:The artificial lens implants in both eyes appear to be stable at this time.D23.11 Ot benign neoplasm skin/ right eyelid, including canthusComments:USE CUTEMOL LOTION ON THE RIGHT LOWER LID SPOT 2 TIMES A DAY
--- OUTSIDE RECORDS SUMMARY | 2018-01-27 10:04 | XMS REPORT ---
:1940 External Reference #:[id number] Author Organization [facility] Address [address] [place] [address] Phone [phone] Care Team Providers Name Role Phone Graeme Schwartz M.D. Primary Care Physician Unavailable Payers Type Date Identification Numbers Payment Provider Subscriber Medicare Primary Effective: Policy Number: Medicare - NGS Lionel Cooper 1999 [id number] Renate PayID: [id number] [address] [place] [address] Commercial Policy Number: [id number] [place] Plan Lionel Dewitt Group Number: [id number] [address] PayID: [id number] [place] [address] Medigap Part B Policy Number: [id number] BS [place] [employer] Lionel Dewitt PayID: [id number] [address] [address] [place] [address] Problems Date Description Provider Status Onset: Appendectomy [...] Description Comments Marital Status 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 Unknown nolone 0000 1Unit/GM- % Duloxetine HCL [...] Procedures Date CPT Code Description Status 06/19/2017 16369 Patient No Show For Appt Completed 11/12/2016 85611 Visual Field Exam Extended Completed 11/12/2016 98754 Est Patient Intermediate Exam Completed 05/07/2016 88364 Scanning Computerized Ophthalmic Diagnostic Imag Completed Posterior Seg On 05/07/2016 02933 Est Patient Comprehensive Exam Completed 10/31/2015 50689 Visual Field Exam Extended Completed 10/31/2015 91212 Est Patient Intermediate Exam Completed 04/11/2015 31306 Fundus Photography With Interpretation And Report Completed 04/11/2015 46101 Est Patient Comprehensive Exam Completed 10/03/2014 06346 Visual Field Exam Extended Completed 10/03/2014 89968 Gonioscopy Completed 10/03/2014 09731 Est Patient Intermediate Exam Completed 04/01/2014 21735 Est Patient Comprehensive Exam Completed 04/01/2014 42358 Visual Field Exam Extended Completed 04/01/2014 69589 Fundus Photography With Interpretation And Report Completed 09/21/2013 22720 Est Patient Intermediate Exam Completed 09/17/2013 05839 Visual Field Exam Extended Completed 03/30/2013 58241 Scanning Computerized Ophthalmic Diagnostic Imag Completed Posterior Seg On 03/30/2013 87950 Est Patient Comprehensive Exam Completed 09/29/2012 45309 Visual Field Exam Extended Completed 09/29/2012 47989 Est Patient Intermediate Exam Completed 03/31/2012 71308 Est Patient Intermediate Exam Completed 01/13/2012 31123 Visual Field Exam Extended Completed 12/31/2011 89597 Scanning Computerized Ophthalmic Diagnostic Imag Completed Posterior Seg On 12/31/2011 64544 Est Patient Intermediate Exam Completed 06/25/2011 73922 Fundus Photography With Interpretation And Report Completed 06/25/2011 13960 Visual Field Exam Extended Completed 06/25/2011 86374 Est Patient Intermediate Exam Completed 01/08/2011 25425 Est Patient Intermediate Exam Completed 01/08/2011 55582 Visual Field Exam Extended Completed 07/05/2010 95403 Scanning Laser W/Interp And Report Completed 07/05/2010 41018 Est Patient Comprehensive Exam Completed 12/26/2009 28058 Visual Field Exam Extended Completed 12/26/2009 10605 Est Patient Comprehensive Exam Completed 06/27/2009 26782 Scanning Laser W/Interp And Report Completed 06/27/2009 05725 Est Patient Intermediate Exam Completed 12/07/2008 42766 Fundus Photography With Interpretation And Report Completed 12/07/2008 04924 Visual Field Exam Extended Completed 12/07/2008 20384 Est Patient Intermediate Exam Completed 09/20/2008 74520 Trabeculoplasty By Laser Surgery Completed 07/26/2008 28946 Trabeculoplasty By Laser Surgery Completed 06/28/2008 01826 Visual Field Exam Extended Completed 05/20/2008 17407 Visual Field Exam Extended Completed 05/20/2008 37575 Est Patient Intermediate Exam Completed 01/13/2008 82695 Est Patient Intermediate Exam Completed 10/14/2007 96006 Visual Field Exam Extended Completed 10/14/2007 24654 Est Patient Intermediate Exam Completed 07/10/2007 41215 Scanning Laser W/Interp And Report Completed 01/29/2007 35031 Est Patient Intermediate Exam Completed 10/29/2006 40620 Extracapsular Cataract Extraction W/Intraocular Lens Completed 10/23/2006 69743 Ophthalmic Biometry Completed 10/22/2006 15205 Extracapsular Cataract Extraction W/Intraocular Lens Completed 10/17/2006 58599 Ophthalmic Biometry Completed 10/17/2006 24415 Computerized Corneal Topography Completed 09/17/2006 59532 Scanning Laser W/Interp And Report Completed 09/17/2006 36584 Visual Field Exam Extended Completed 09/17/2006 29689 Pachymetry Completed 09/11/2006 63797 Fundus Photography With Interpretation And Report Completed 09/11/2006 70286 New Patient Intermediate Exam Completed Encounters Type Date Location Provider CPT E/M Dx Office Visit 10/22/2013 10:15a Alejandro Shelton MD, Estela Yadav O.D. 92928 365.73 pc Office Visit 03/10/2009 8:45a Alejandro Shelton MD, Alejandro Shelton, 91144 365.11 pc M.D. Office Visit 11/04/2008 9:00a Alejandro Shelton MD, Alejandro Shelton, 26161 365.11 pc M.D. Office Visit 09/08/2008 10:30a Alejandro Shelton MD, Alejandro Shelton, 11804 365.11 pc M.D. Office Visit 06/28/2008 9:45a Alejandro Shelton MD, Alejandro Shelton, 28653 365.11 pc M.D. Office Visit 07/10/2007 10:15a Alejandro Shelton MD, Alejandro Shelton, 03765 365.11 pc M.D. Office Visit 09/25/2006 9:15a Alejandro Shelton MD, Alejandro [place], 82426 365.11 anthony Gage Plan of Care Future Appointment(s):07/09/2018 12:00 pm - Alejandro Shelton M.D. at Alejandro Shelton MD, 01/02/2018 - Alejandro Shelton M.D.[id number] Primary open-angle glaucoma, bilateral, moderate stageComments:Smoking can increase the risk of developing or worsening any eye related disease, as well as affect your overall health. If you are a smoker, we strongly recommend that you quit.If you are not a smoker, we strongly recommend that you do not start. Your glaucoma is stable at this time.Your eye pressure is within an acceptable range, and your testing does not show any further deterioration at this time. Please continue your treatment.Follow up:6 Month Follow Up DFE/IOP Photos You can expect to have your eyes dilated at your next visit. If Dr. Shelton orders any additional testing, it may require extra time. We recommend that you bring sunglasses, as dilation drops often make you light sensitive until they wear off. We always recommend you bring someone to drive you home if you are uncomfortable driving with your eyes dilated. If you have any questions before your next visit, feel free to call our office at .Z96.1 Presence of intraocular lensComments:The artificial lens implants in both eyes appear to be stable at this time.D23.11 Ot benign neoplasm skin/ right eyelid, including canthusComments:USE CUTEMOL LOTION ON THE RIGHT LOWER LID SPOT 2 TIMES A DAY
[2018-01-27 10:09] LABS: Urine Appearance Clear; Urine Blood Negative (Negative); Urine Color Straw; Urine Ketones Negative (Negative); Urine Protein Negative (Negative); Urine Specific Gravity 1.006 (1.010-1.030); Urine Urobilinogen Negative (Negative)
[2018-01-27 10:25] LABS: ABS Basophils 0.1 10^3/ul (0-0.2); ABS Eosinophils 0.3 10^3/ul (0-0.6); ABS Monocytes 1.2 10^3/ul (0-0.8); ABS Neutrophils 6.9 10^3/ul (1.5-7.7); ABS Nucleated RBC 0 10^3/ul; Eosinophil % 2.8 % (0-6); Hematocrit 38 % (42-52); Hemoglobin 12.6 g/dl (14.0-18.0); Lymphocyte % 18.9 % (25-47); Mean Corpuscular HGB Conc 33 g/dl (31-36); Mean Corpuscular Hemoglobin 33 pg (27-31); Mean Corpuscular Volume 99 fL (80-94); Mean Platelet Volume 7.6 um3 (7.4-10.4); Nucleated Red Blood Cells % 0.1; Platelet Count 201 10^3/ul (150-450); Red Blood Count 3.84 10^6/ul (4.00-5.40); Red Cell Distribution Width 16 % (10.5-15); White Blood Count 10.4 10^3/ul (3.5-10.8)
[2018-01-27 10:39] LABS: EGFR Non-African American 69.7 (>60)
--- NOTE | 2018-01-27 10:57 | RAD ---
HISTORY: pain, subacute trauma, flank pain COMPARISONS: None TECHNIQUE: Multiple contiguous axial CT scans were obtained of the lumbar spine without intravenous contrast, with coronal and sagittal multiplanar reformations. FINDINGS: SPINAL CANAL: Evaluation of the central canal is limited on CT technique; however, there is no obvious canalicular mass or epidural hemorrhage. ALIGNMENT: There is trace retrolisthesis of L1 on L2. There is a mild scoliotic curvature of the spine. VERTEBRAL BODIES: There is diffuse osteopenia. There is multilevel anterolateral marginal osteophyte formation the vertebral bodies are preserved in height. There is a hemangioma of L1. There is no displaced fracture. JOINTS: There is extensive facet osteoarthritis. MUSCULATURE: Unremarkable INTERVERTEBRAL DISCS: There is diffuse loss of intervertebral disc height throughout the spine. AXIAL IMAGES: T11-T12: There is mild right neural foraminal area. There is a prominent osteophyte from the right facet joint with mild narrowing of the central canal. T12-L1: There is bilateral facet hypertrophy. There is moderate bilateral neuroforaminal narrowing. There is no osseous central canal stenosis. L1-L2: There is bilateral uncovertebral and facet hypertrophy. There is severe bilateral neural foraminal narrowing. There is no osseous central canal stenosis. L2-L3: There is bilateral facet hypertrophy. There is ligamentous hypertrophy. There is marginal osteophyte formation at the neural foramina bilaterally. There is severe bilateral neural foraminal narrowing. There is moderate narrowing of the central canal. L3-L4: There is bilateral facet hypertrophy. There is marginal osteophyte formation at the neural foramina bilaterally. There is severe bilateral neural foraminal narrowing. There is moderate narrowing of the central canal. L4-L5: There is bilateral facet hypertrophy. There is marginal osteophyte formation at the neural foramina bilaterally. There is severe bilateral neuroforaminal narrowing. There is moderate narrowing of the central canal. L5-S1: There is bilateral facet hypertrophy. There is marginal osteophyte formation at the neural foramina bilaterally. There is severe bilateral neuroforaminal narrowing. There is moderate narrowing of the central canal. SOFT TISSUES: The visualized soft tissues of the abdomen are unremarkable. OTHER: There is a nondisplaced fracture of the posterior aspect of the right 11th rib. This is best seen on axial image 5 of series 2. IMPRESSION: 1. OSTEOPENIA. 2. DEGENERATIVE DISC DISEASE AND OSTEOARTHRITIS. 3. THERE IS MODERATE NARROWING OF CENTRAL CANAL AT L2-L3 THROUGH L5-S1 WITH MILD NARROWING AT T11-T12. 4. THERE IS MULTILEVEL NEUROFORAMINAL NARROWING DESCRIBED ABOVE. 5. THERE IS A NONDISPLACED FRACTURE OF THE POSTERIOR RIGHT 11TH RIB
--- NOTE | 2018-01-27 13:01 | RAD ---
HISTORY: pain, subacute trauma, right hip pain COMPARISONS: May 15, 2017 VIEWS: 3, Frontal view of the pelvis with frontal and frog-leg views of the right hip FINDINGS: BONE DENSITY: There is diffuse osteopenia. BONES: The patient is status post right hip arthroplasty. There is no hardware failure or osteolysis. JOINTS: The patient status post right hip arthroplasty. There is osteoporosis of the left hip and SI joints. ALIGNMENT: There is no dislocation. SOFT TISSUES: Unremarkable. OTHER FINDINGS: Degenerative changes are noted of the spine. IMPRESSION: 1. OSTEOPENIA. 2. STATUS POST RIGHT HIP ARTHROPLASTY. 3. NO ACUTE OSSEOUS INJURY. IF SYMPTOMS PERSIST, RECOMMEND REPEAT IMAGING
--- NOTE | 2018-01-27 13:02 | RAD ---
INDICATION: Rib injury status post fall. COMPARISON: There is is made with prior chest x-ray study from May 17, 2017. TECHNIQUE: AP views of the ribs were obtained and an AP view of the chest was obtained sitting. FINDINGS: No fracture or significant focal osseous abnormality is seen. The heart is within normal limits in size. The lungs are clear. There is no evidence for pneumothorax or pleural effusion. IMPRESSION: NO EVIDENCE FOR FRACTURE.
--- NOTE | 2018-01-27 13:40 | ED ---
Back Pain - HPI Summary HPI Summary: Patient is a 78-year-old male who presents emergency department with chief complaint of low back pain. Patient currently resides with his son who is present and who history was obtained from. Patient's son states that he has been complaining of worsening, diffuse pain over the last several days. He states that patient typically ambulate with a walker but has been unable to walk secondary to pain. He is prescribed tramadol which she took today which did improve pain. Patient's son states that he didn't have a small fall several days ago where he lost his balance on the toilet and injured right side of ribs and right hip pain. Otherwise patient has not been sick recently, no chest pain, shortness of breath, fever, abdominal pain, vomiting, diarrhea, urinary symptoms. Symptoms are moderate in severity. Movement makes symptoms worse. Rest makes symptoms better. - History of Current Complaint Chief Complaint: EDFlankPain Stated Complaint: FLANK PAIN Time Seen by Provider: 01/27/18 09:45 Hx Obtained From: Family/Viscosity Inspector Pain Intensity: 8 - Allergies/Home Medications Allergies/Adverse Reactions: Allergies Allergy/AdvReac Type Severity Reaction Status Date / Time Penicillins Allergy Hives Verified 10/16/17 15:28 Home Medications: Home Medications Allopurinol TAB* [Zyloprim 100 MG TAB*] 100 mg PO BID 01/27/18 [History Confirmed 01/27/18] Carbidopa/Levodop 25/100 MG(*) [Sinemet 25/100 TAB(*)] 1.5 tab PO TID 01/27/18 [ History Confirmed 01/27/18] Cholecalciferol TAB* [Vitamin D TAB*] 5,000 unit PO DAILY 01/27/18 [History Confirmed 01/27/18] DULoxetine DR CAP* [Cymbalta CAP*] 60 mg PO QAM 01/27/18 [History Confirmed ] Dabigatran CAP(NF) [Pradaxa CAP(NF)] 150 mg PO BID 01/27/18 [History Confirmed 01/27/18] Furosemide TAB* [Lasix TAB*] 20 mg PO QAM 01/27/18 [History Confirmed 01/27/18] Metoprolol Succinate XL TAB* [Toprol XL TAB*] 100 mg PO DAILY 01/27/18 [History Confirmed 01/27/18] Potassium Chlor TAB* [Klor Con ER TAB*] 10 meq PO DAILY 01/27/18 [History Confirmed 01/27/18] Propafenone HCl [Propafenone HCl ER] 425 mg PO BID 01/27/18 [History Confirmed 01/27/18] Timolol 0.5% OPTH.HAMIDA* [Timoptic 0.5% Opth*] 1 drop RIGHT EYE DAILY 01/27/18 [ History Confirmed 01/27/18] amLODIPine TAB* [Norvasc 5 mg TAB*] 10 mg PO DAILY 01/27/18 [History Confirmed 01/27/18] PMH/Surg Hx/FS Hx/Imm Hx Previously Healthy: Yes Endocrine/Hematology History: Reports: Hx Anticoagulant Therapy - aggregnox Cardiovascular History: Reports: Hx Hypercholesterolemia, Hx Hypertension, Other Cardiovascular Problems/Disorders - 2017 ANTI QUAGULATION MEDS Respiratory History: Reports: Hx Sleep Apnea - current CPAP user GI History: Reports: Hx Gall Bladder Disease, Other GI Disorders - CONSTIPATION AND DIARRHEA ISSUES IN THE PAST Musculoskeletal History: Reports: Hx Arthritis - ARTHRITIS IN KNEES AND HIPS, Hx Gout Sensory History: Reports: Hx Cataracts, Hx Glaucoma - RIGHT, Hx Hearing Problem Denies: Hx Contacts or Glasses, Hx Hearing Aid Opthamlomology History: Reports: Hx Cataracts, Hx Glaucoma - RIGHT Denies: Hx Contacts or Glasses Neurological History: Reports: Hx Seizures, Other Neuro Impairments/Disorders - Parkinsons Psychiatric History: Reports: Hx Depression - ON MEDS after wifes - Surgical History Surgery Procedure, Year, and Place: cholecystectomy; bilat TKR; appendectomy; cateracts; right DORON Hx Anesthesia Reactions: No Infectious Disease History: No Infectious Disease History: Denies: Traveled Outside the [place] in Last 30 Days - Family History Known Family History: Positive: Unknown - Social History Occupation: Retired Lives: With Family Alcohol Use: None Substance Use Type: Reports: None Smoking Status (MU): Never Smoked Tobacco Review of Systems Constitutional: Negative Eyes: Negative ENT: Negative Cardiovascular: Negative Respiratory: Negative Gastrointestinal: Negative Genitourinary: Negative Positive: Other - Back pain Positive: Other - Chronic wound to left lower leg Neurological: Negative All Other Systems Reviewed And Are Negative: Yes Physical Exam Triage Information Reviewed: Yes Vital Signs On Initial Exam: Initial Vitals Pulse BP Pulse Ox 59 118/57 98 01/27/18 09:38 01/27/18 09:38 01/27/18 09:38 Vital Signs Reviewed: Yes Appearance: Positive: Well-Appearing - Pt. lying in bed in NAD. Family present. Skin: Positive: Warm, Dry, Other - Superficial healing wound to left LEs. Head/Face: Positive: Normal Head/Face Inspection Eyes: Positive: Normal Neck: Positive: Supple Respiratory/Lung Sounds: Positive: Clear to Auscultation, Breath Sounds Present Cardiovascular: Positive: Normal, RRR Abdomen Description: Positive: Nontender, Soft Musculoskeletal: Positive: Other - 5/5 strength in bilateral LEs. No pitting edema. No calf tenderness. Mid midline lumbar tenderness. Neurological: Positive: CN Intact II-III Psychiatric: Positive: Affect/Mood Appropriate Diagnostics - Vital Signs Vital Signs Temp Pulse Resp BP Pulse Ox 01/27/18 11:08 60 128/57 96 01/27/18 11:00 60 98 01/27/18 10:38 60 114/71 97 01/27/18 10:08 59 125/59 99 01/27/18 10:04 60 99 01/27/18 09:40 97.2 F 58 16 118/57 97 01/27/18 09:38 59 118/57 98 - Laboratory Lab Results: Lab Results 01/27/18 01/27/18 01/27/18 Range/Units 09:52 10:08 10:08 WBC 10.4 (3.5-10.8) 10^3/ul RBC 3.84 L (4.00-5.40) 10^6/ul Hgb 12.6 L (14.0-18.0) g/dl Hct 38 L (42-52) % MCV 99 H (80-94) fL MCH 33 H (27-31) pg MCHC 33 (31-36) g/dl RDW 16 H (10.5-15) % Plt Count 201 (150-450) 10^3/ul MPV 7.6 (7.4-10.4) um3 Neut % (Auto) 66.2 (38-83) % Lymph % (Auto) 18.9 L (25-47) % [place] % (Auto) 11.4 H (0-7) % Eos % (Auto) 2.8 (0-6) % Baso % (Auto) 0.7 (0-2) % Absolute Neuts (auto) 6.9 (1.5-7.7) 10^3/ul Absolute Lymphs (auto) 2.0 (1.0-4.8) 10^3/ul Absolute Monos (auto) 1.2 H (0-0.8) 10^3/ul Absolute Eos (auto) 0.3 (0-0.6) 10^3/ul Absolute Basos (auto) 0.1 (0-0.2) 10^3/ul Absolute Nucleated RBC 0 10^3/ul Nucleated RBC % 0.1 Sodium 137 (135-145) mmol/L Potassium 4.2 (3.5-5.0) mmol/L Chloride 98 L (101-111) mmol/L Carbon Dioxide 34 H (22-32) mmol/L Anion Gap 5 (2-11) mmol/L BUN 18 (6-24) mg/dL Creatinine 1.03 (0.67-1.17) mg/dL Est GFR ( Amer) 84.3 (>60) Est GFR (Non-Af Amer) 69.7 (>60) BUN/Creatinine Ratio 17.5 (8-20) Glucose 104 H (70-100) mg/dL Calcium 8.8 (8.6-10.3) mg/dL Total Bilirubin 0.50 (0.2-1.0) mg/dL AST 10 L (13-39) U/L ALT < 3 L (7-52) U/L Alkaline Phosphatase 118 H (34-104) U/L C-React Prot High Sens 35.15 H (<2.00) mg/L Total Protein 6.0 L (6.4-8.9) g/dL Albumin 3.1 L (3.2-5.2) g/dL Globulin 2.9 (2-4) g/dL Albumin/Globulin Ratio 1.1 (1-3) Urine Color Straw Urine Appearance Clear Urine pH 5.0 (5-9) Ur Specific [place] 1.006 L (1.010-1.030) Urine Protein Negative (Negative) Urine Ketones Negative (Negative) Urine Blood Negative (Negative) Urine Nitrate Negative (Negative) Urine Bilirubin Negative (Negative) Urine Urobilinogen Negative (Negative) Ur Leukocyte Esterase Negative (Negative) Urine Glucose Negative (Negative) Result Diagrams: 01/27/18 10:08 01/27/18 10:08 Lab Statement: Any lab studies that have been ordered have been reviewed, and results considered in the medical decision making process. Back Pain Course/Dx - Course Course Of Treatment: Patient presenting for evaluation of low back pain and difficulty walking. He is afebrile with stable vital signs. Initially patient states he was [address] scan and lumbar spine ordered. Blood work is at patient's baseline. CT scan shows no spinous stenosis and degenerative disc disease, also noted is a nondisplaced fracture of the posterior right 11th rib. X-ray of chest, ribs and right hip were also obtained which are negative for acute findings. Results were discussed with patient and son. He is concerned there is something else going on given patient's symptoms today. Patient was examined by Dr. Sen, who is like a CT scan of brain and pelvis. He is concerned with patient's weakness to legs. Pt. will be signed out to Dr. Sen for CT results and neuro consult. - Diagnoses Provider Diagnoses: Back pain, Weakness, Ambulatory dysfunction Discharge - Sign-Out/Discharge Documenting (check all that apply): Sign-Out Patient Signing out patient TO: Clayton Sen - Discharge Plan Condition: Stable Referrals: Graeme Schwartz MD [Primary Care Provider] - - Billing Disposition and Condition Condition: STABLE
[2018-01-27] MEDS ORDERED: Ondansetron ODT TAB* 4 MG PO ONE (14:40)
[2018-01-27] MEDS ORDERED: Morphine VIAL* 4 MG/ML VIAL (1 ml vial) IV ONE (14:40)
--- NOTE | 2018-01-27 15:17 | RAD ---
HISTORY: FALL WEAKNESS COMPARISONS: May 17, 2017 TECHNIQUE: Multiple contiguous axial CT scans were obtained of the head without intravenous contrast. FINDINGS: HEMORRHAGE/INFARCT: There is no hemorrhage or acute infarct. MASSES/SHIFT: There is no mass or shift. EXTRA-AXIAL SPACES: There are no extra-axial fluid collections. SULCI AND VENTRICLES: There is mild diffuse and proportional enlargement of the sulci and ventricles. CEREBRUM: There are no focal parenchymal abnormalities. BRAINSTEM: There are no focal parenchymal abnormalities. CEREBELLUM: There are no focal parenchymal abnormalities. VESSELS: The vessels are grossly normal. PARANASAL SINUSES: The paranasal sinuses are clear. ORBITS: The orbits are unremarkable. BONES AND SOFT TISSUE: No bone or soft tissue abnormalities are noted. OTHER: None IMPRESSION: NO ACUTE INTRACRANIAL PATHOLOGY.
[2018-01-27] MEDS ORDERED: Morphine INJ* 2 MG/ML 1 ML SYRINGE (TWO MG - NEW SYRINGE VERSION) ONE (15:23)
--- NOTE | 2018-01-27 15:23 | RAD ---
HISTORY: FALL R HIP PAIN COMPARISONS: Plain film dated January 27, 2018 TECHNIQUE: Multiple contiguous axial CT images are obtained of the pelvis, with coronal and sagittal multiplanar reconstructions, without intravenous contrast administration. FINDINGS: BONE DENSITY: There is diffuse osteopenia. BONES: The patient is status post right hip arthroplasty. There is no hardware failure or osteolysis or appreciable periprosthetic fracture. Elsewhere, there is no displaced fracture. JOINTS: The patient is status post right hip arthroplasty. There is moderate osteoarthritis of the left hip. There is moderate osteoarthritis of the SI joints. MUSCULATURE: There is moderate atrophy. ALIGNMENT: There is no dislocation. SOFT TISSUES: There is atherosclerosis of the abdominal aorta. There is mild soft tissue edema of the right anterior thigh, without appreciable intramuscular hematoma. OTHER FINDINGS: There is degenerative disc disease and osteoarthritis of the lower lumbar spine as described on the CT of the lumbar spine performed the same date. IMPRESSION: 1. OSTEOPENIA. 2. STATUS POST RIGHT HIP ARTHROPLASTY. 3. OSTEOARTHRITIS. 4. NO ACUTE OSSEOUS INJURY. IF SYMPTOMS PERSIST, RECOMMEND REPEAT IMAGING.
--- NOTE | 2018-01-27 18:05 | ADMNOTE ---
Subjective Date of Service: 01/27/18 Interval History: ADMISSION HISTORY AND PHYSICAL EXAM: Allergies Allergy/AdvReac Type Severity Reaction Status Date / Time Penicillins Allergy Hives Verified 10/16/17 15:28 Home Medications Medication Instructions Recorded Confirmed Type Allopurinol TAB* [Zyloprim 100 MG 100 mg PO BID 01/27/18 01/27/18 History TAB*] Carbidopa/Levodop 25/100 MG(*) 1.5 tab PO TID 01/27/18 01/27/18 History [Sinemet 25/100 TAB(*)] Cholecalciferol TAB* [Vitamin D 5,000 unit PO DAILY 01/27/18 01/27/18 History TAB*] DULoxetine DR CAP* [Cymbalta CAP*] 60 mg PO QAM 01/27/18 01/27/18 History Dabigatran CAP(NF) [Pradaxa 150 mg PO BID 01/27/18 01/27/18 History CAP(NF)] Furosemide TAB* [Lasix TAB*] 20 mg PO QAM 01/27/18 01/27/18 History Metoprolol Succinate XL TAB* 100 mg PO DAILY 01/27/18 01/27/18 History [Toprol XL TAB*] Potassium Chlor TAB* [Klor Con ER 10 meq PO DAILY 01/27/18 01/27/18 History TAB*] Propafenone HCl [Propafenone HCl 425 mg PO BID 01/27/18 01/27/18 History ER] Timolol 0.5% OPTH.HAMIDA* [Timoptic 1 drop RIGHT EYE DAILY 01/27/18 01/27/18 History 0.5% Opth*] amLODIPine TAB* [Norvasc 5 mg TAB*] 10 mg PO DAILY 01/27/18 01/27/18 History HPI: The patient fell on 01/28 but did not c/o low back pain untl 01/30. It became progressively worse and yesterday he did not get out of bed all day. He has aides 3 hrs/d 7 d/wk. He did respond somewhat to tramadol.but still hurt too much to get OOB. The ambulance brought him here. He took all his Family History: Findings - Prostate and breast ca. Social History: Findings - QUit pipe smoking many yrs ago. Lives with his son who is his SDM. 2 daughters. No alcohol abuse. Past Medical History: Findings - Parkinson's, gout, atrial fib, seizure disorder 20 yrs ago--no AED, MICHAEL won't use CPAP. R DORON, BTKA, cholecystectomy, appy, cataract sx. Review of Systems - Measurements Intake and Output: Intake and Output Last 24 Hours 01/25/18 01/26/18 01/27/18 01/28/18 06:59 06:59 06:59 06:59 Weight 280 lb - Review of Systems Constitutional Symptoms: Negative: Weight Gain, Weight Loss, Weakness, Fatigue, Fever, Night Sweats, Unexplained Falls, Other Dermatology: Positive: Normal HEENT: Positive: Normal Eyes: Positive: Normal Thyroid: Positive: Normal Pulmonary: Positive: Normal Cardiology: Positive: Swelling of Ankles - in past, reason for furosemide Gastroenterology: Positive: Normal Genital - Urinary: Positive: Normal Musculoskeletal: Positive: Low Back Pain Endocrinology: Positive: Normal Hematologic/Lymphatic: Positive: Use of Anticoagulant Neurology: Positive: Other - Parkinson's Psychiatry: Positive: Normal Allergic/Immunologic: Negative: Hx Anaphylaxis, Hx Angioedema, Hx Environmental, Hx Seasonal, Athsma, Hx HIV, Immunocompromise, Swollen Glands LymphNodes, Other Objective Vital Signs - 8 hr 01/27/18 01/27/18 01/27/18 10:04 10:08 10:38 Pulse Rate 60 59 60 Respiratory Rate Blood Pressure 125/59 114/71 (mmHg) O2 Sat by Pulse 99 99 97 Oximetry 01/27/18 01/27/18 01/27/18 11:00 11:08 11:38 Pulse Rate 60 60 60 Respiratory Rate Blood Pressure 128/57 111/52 (mmHg) O2 Sat by Pulse 98 96 97 Oximetry 01/27/18 01/27/18 01/27/18 12:00 12:08 13:00 Pulse Rate 61 60 60 Respiratory Rate Blood Pressure 110/48 (mmHg) O2 Sat by Pulse 98 97 97 Oximetry 01/27/18 01/27/18 01/27/18 13:08 13:38 14:00 Pulse Rate 60 61 61 Respiratory Rate Blood Pressure 131/65 128/56 (mmHg) O2 Sat by Pulse 97 98 98 Oximetry 01/27/18 01/27/18 01/27/18 14:08 14:19 14:20 Pulse Rate 60 61 61 Respiratory Rate Blood Pressure 134/66 134/66 134/66 (mmHg) O2 Sat by Pulse 96 97 96 Oximetry 01/27/18 01/27/18 14:38 15:26 Pulse Rate Respiratory 18 Rate Blood Pressure 136/63 (mmHg) O2 Sat by Pulse Oximetry Oxygen Devices in Use Now: None Appearance: Alert, supine on ED stretcher. Neutral affect. Looks comfortable at rest but winces when others change his position. Eyes: No Scleral Icterus Ears/Nose/Mouth/Throat: Clear Oropharnyx, Mucous Membranes Moist Neck: NL Appearance and Movements; NL JVP, No Thyroid Enlargement, Masses Respiratory: Symmetrical Chest Expansion and Respiratory Effort, Clear to Auscultation, Clear to Percussion Cardiovascular: NL Sounds; No Murmurs; No JVD, RRR, No Edema, - Abdominal: NL Sounds; No Tenderness; No Distention, No Hepatosplenomegaly, - Extremities: No Edema, No Clubbing, Cyanosis, - Skin: No Rash or Ulcers, No Nodules or Sclerosis, - Neurological: Alert and Oriented x 3, NL Sensation, - - Hand sports marketing specialist 4/5 BL, foot dorsiflexion 4/5 BL. Result Diagrams: 01/27/18 10:08 01/27/18 10:08 Additional Lab and Data: Lab Results 01/27/18 01/27/18 01/27/18 Range/Units 09:52 10:08 10:08 WBC 10.4 (3.5-10.8) 10^3/ul RBC 3.84 L (4.00-5.40) 10^6/ul Hgb 12.6 L (14.0-18.0) g/dl Hct 38 L (42-52) % MCV 99 H (80-94) fL MCH 33 H (27-31) pg MCHC 33 (31-36) g/dl RDW 16 H (10.5-15) % Plt Count 201 (150-450) 10^3/ul MPV 7.6 (7.4-10.4) um3 Neut % (Auto) 66.2 (38-83) % Lymph % (Auto) 18.9 L (25-47) % [place] % (Auto) 11.4 H (0-7) % Eos % (Auto) 2.8 (0-6) % Baso % (Auto) 0.7 (0-2) % Absolute Neuts (auto) 6.9 (1.5-7.7) 10^3/ul Absolute Lymphs (auto) 2.0 (1.0-4.8) 10^3/ul Absolute Monos (auto) 1.2 H (0-0.8) 10^3/ul Absolute Eos (auto) 0.3 (0-0.6) 10^3/ul Absolute Basos (auto) 0.1 (0-0.2) 10^3/ul Absolute Nucleated RBC 0 10^3/ul Nucleated RBC % 0.1 Sodium 137 (135-145) mmol/L Potassium 4.2 (3.5-5.0) mmol/L Chloride 98 L (101-111) mmol/L Carbon Dioxide 34 H (22-32) mmol/L Anion Gap 5 (2-11) mmol/L BUN 18 (6-24) mg/dL Creatinine 1.03 (0.67-1.17) mg/dL Est GFR ( Amer) 84.3 (>60) Est GFR (Non-Af Amer) 69.7 (>60) BUN/Creatinine Ratio 17.5 (8-20) Glucose 104 H (70-100) mg/dL Calcium 8.8 (8.6-10.3) mg/dL Total Bilirubin 0.50 (0.2-1.0) mg/dL AST 10 L (13-39) U/L ALT < 3 L (7-52) U/L Alkaline Phosphatase 118 H (34-104) U/L C-React Prot High Sens 35.15 H (<2.00) mg/L Total Protein 6.0 L (6.4-8.9) g/dL Albumin 3.1 L (3.2-5.2) g/dL Globulin 2.9 (2-4) g/dL Albumin/Globulin Ratio 1.1 (1-3) Urine Color Straw Urine Appearance Clear Urine pH 5.0 (5-9) Ur Specific [place] 1.006 L (1.010-1.030) Urine Protein Negative (Negative) Urine Ketones Negative (Negative) Urine Blood Negative (Negative) Urine Nitrate Negative (Negative) Urine Bilirubin Negative (Negative) Urine Urobilinogen Negative (Negative) Ur Leukocyte Esterase Negative (Negative) Urine Glucose Negative (Negative) Assess/Plan/Problems-Billing Assessment: - Patient Problems (1) Low back pain Current Visit: Yes Status: Acute Code(s): M54.5 - LOW BACK PAIN SNOMED Code(s): 231923589 Comment: MRI pending. Tramadol PRN plus scheduled APAP. (2) Parkinsons disease Current Visit: No Status: Acute Code(s): G20 - PARKINSON'S DISEASE SNOMED Code(s): 70959997 Comment: Continue home dose of sinemet. Pain is currently limting his ambulation. (3) Paroxysmal A-fib Current Visit: No Status: Acute Code(s): I48.0 - PAROXYSMAL ATRIAL FIBRILLATION SNOMED Code(s): 713919790 Comment: Continue Metoprolol and Propafenone, dabigatran. (4) Hypoxia Current Visit: No Status: Acute Code(s): R09.02 - HYPOXEMIA SNOMED Code(s) : 912172690 Comment: - Pt with 2L NC requirement. - CXR shows low lung volumes without infiltrate. B/L pleural effusions. CTA negative. - Recommend mobility and incentive spirometry. (5) MICHAEL (obstructive sleep apnea) Current Visit: No Status: Acute Code(s): G47.33 - OBSTRUCTIVE SLEEP APNEA ( ADULT) (PEDIATRIC) SNOMED Code(s): 99465232 Comment: - Not Compliant with CPAP at home--last used abaout 3 yrs ago. - Overnight Pulse oximetry on RA ordered.
[2018-01-27] MEDS: Carbidopa/Levodop 25/100 MG TAB(*) PO SCH ×2 (18:29→22:04)
--- NOTE | 2018-01-27 19:32 | RAD ---
INDICATION: Evaluate for metallic foreign body. TECHNIQUE: Frontal and lateral views of the orbits were obtained. FINDINGS: There appears to be a 2.5 mm metallic foreign body present within the right orbit. No significant osseous abnormality is noted. IMPRESSION: THERE IS A METALLIC FOREIGN BODY WITHIN THE RIGHT ORBIT WHICH IS A CONTRAINDICATION TO MRI SCANNING.
[2018-01-27] MEDS: Dexamethasone TAB* 4 MG PO ONE ×2 (21:00→21:55)
[2018-01-27] MEDS ORDERED: PROPAFENONE 425 MG PO SCH (21:00)
[2018-01-27] MEDS: CMC: Dabigatran CAP(NF) 150 MG CAP PO SCH (21:06)
[2018-01-27] MEDS: Acetaminophen TAB* 325 MG PO SCH (21:06)
[2018-01-27] MEDS: Allopurinol TAB* 100 MG PO SCH (21:07)
--- NOTE | 2018-01-27 21:28 | CONS ---
NEUROLOGY CONSULTATION REPORT: DATE OF CONSULT: 01/27/18 CONSULTING PHYSICIAN: Clayton Sen MD REASON FOR NEUROLOGICAL CONSULTATION: Bilateral lower extremity weakness and recurrent falls. CHIEF COMPLAINT: Leg weakness. HISTORY OF PRESENT ILLNESS: Mr. Lionel Dewitt is a 78-year-old right- handed man, who has history of Parkinson's disease for 10-15 years. The patient follows up with Dr. Woodall. He was last seen by Dr. Woodall 1 month ago. His Sinemet was adjusted and changed to Sinemet 25/100 1.5 tablets 3 times daily. He was taking 10/100 one tablet 3 times daily for 9 months prior to this adjustment. Since this adjustment, the tremors have improved significantly and the patient's gait essentially improved. The patient was hospitalized from May due to elective right hip replacement surgery.. He was in a rehabilitation for close to 9 months. He continued to have restriction in his mobility since the surgery. He is heavily dependent on a walker. Today, the patient is accompanied by his son, Lionel Staley, who provided most of the medical history. The patient has had a subacute progression of worsening gait problems, lower extremity weakness, and falls for the last 1 week. It all started last Friday/Friday, 01/20/18-01/21/18. The patient at baseline walks with a walker. A week and half ago, he was able to ambulate with a walker independently. He was cleared by PT 2 weeks ago as there were no further recommendations in regard to his ambulation. Earlier last week, the patient started developing edema in the lower extremity. He was still walking with a walker, but holding the walker "extremely tightly." He was tired. He could not walk for more than 25 feet. His son stated that he would tip over at times. On Friday, the patient was using the commode when he slipped off the commode and fell to the ground. He did not lose consciousness. He did not hit his head. Since then, the patient's left lower extremities became weaker. By night, the patient was complaining of back pain radiating to the left hip. By Friday, he had a visiting nurse come and see him and he was having trouble ambulating with the nurse. The patient spent the days in bed on Friday and Friday. Since he was not improving, the son decided to bring him to the emergency room for further evaluation. The patient denied any urinary incontinence. The patient denied any neck pain. He states that he has a 3/10 back pain that mostly is localized in the low back region. The pain does not radiate into the lower extremities. The pain is dull and achy in nature. He denied any fevers or chills. He does moan in pain when trying to move around in bed. This type of back pain is new and has been there for a few days now. The patient was on prednisone for approximately 4 months. The prednisone was discontinued 1 month ago. The patient's son stated that since this discontinuation of prednisone, the patient's gait has worsened. The patient does not take any statins. He denied any neck pain. PAST MEDICAL HISTORY: Parkinson's disease, on Sinemet; atrial fibrillation, on Pradaxa and propafenone. PAST SURGICAL HISTORY: Right hip surgery, bilateral knee replacement, cholecystectomy, cataract surgery. MEDICATIONS: 1. Vitamin D. 2. Amlodipine 10 mg daily. 3. Potassium chloride 10 mEq daily. 4. Furosemide 20 mg p.o. every morning. 5. Timolol 0.5% ophthalmic solution 1 drop in the right eye daily. 6. Metoprolol succinate 100 mg p.o. daily. 7. Propafenone 425 mg p.o. twice daily. 8. Dabigatran 150 mg p.o. twice daily. 9. Cymbalta 60 mg every morning. 10. Carbidopa/levodopa 25/100, 1.5 tablets by mouth 3 times daily. 11. Allopurinol 100 mg by mouth twice daily. ALLERGIES: To PENICILLIN. FAMILY HISTORY: His mother of alcohol abuse. He has no family history of stroke or seizures. 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 He denied any tobacco or alcohol use. REVIEW OF SYSTEMS: A 14-point review of systems was obtained and otherwise negative except for what was mentioned in the HPI. PHYSICAL EXAM: Vitals: Temperature of 97.2, pulse rate of 60, oxygen saturation 97% on room air, blood pressure of 118/57. General: Well-nourished , well- developed, elderly man, who appears to be fatigued. He is cooperative. He is hard of hearing. Head: Normocephalic, atraumatic without any obvious abnormalities. Eyes: Conjunctivae/corneas are clear with no scleral icterus. Neck: Supple and symmetrical with no carotid bruits. No lymphadenopathy. Lungs are clear to auscultation bilaterally with nonlabored breathing. Cardiovascular: Regular rate, rhythm with normal S1, S2. Extremities: Limited range of motion of bilateral upper extremities at the shoulder region due to rotator cuff injury. Skin: No skin lesion. He does have a laceration on the left lower extremity that is covered. Dressing is clean. Psych: Affect is broad and normal mood. Neurological Examination: Mental Status: Awake and alert, oriented to person, place, time, and general circumstances. He does have psychomotor slowing. He has no dysarthria. He has hypophonia. Cranial Nerves: Normal confrontation bilaterally. Pupils mid range and reactive to light. Normal consensual response. Extraocular muscles are intact. No ptosis. Sensation intact on forehead, cheeks, and jaw region. Questionable mild facial droop on the right side of the face, but this is chronic according to his son. Difficulty in hearing throughout the history process and I needed to speak slightly louder due to hearing impairment. Symmetrical palatal elevation. Normal strength against shoulder shrug resistance. Tongue is symmetrical and midline with no atrophy. Motor: There is no abnormal movement except for slight resting tremor mostly at the ankles and foot and mildly in the upper extremity. The frequency is about 4 to 6 Hz high amplitude tremor. Otherwise, minimal cogwheel rigidity. No fasciculation. Again, restricted range of motion of the shoulder. Shoulder abduction was 4/ 5 bilaterally, more weaker on the left than the right. Otherwise, elbow flexion and extension, wrist flexion and extension, finger abduction is 5/5. Hip flexion is now 4/5 on the right and 3/5 on the left. Hip abduction is 4/5 on the right, 4/5 on the left. Knee flexion 4/5 on the left and 5/5 on the right, extension 5/5 bilaterally. Ankle dorsiflexion and plantarflexion are 5/ 5 bilaterally. Great toe extension is 4/5 on the right and 4- /5 on the left. Reflexes: Right/left, brachioradialis 1/1, biceps 1/1, triceps 1/1, patella 1/0 , ankle 0/0, plantar flexor bilaterally. Sensation is reduced to light touch, pinprick, and temperature sensation in distal to proximal sensory gradient demarcation around the mid shins bilaterally. He had absent vibratory sensation at the great toes and reduced vibratory sensation at the medial malleolus at 4 seconds on the right and 5 seconds on the left. Proprioception at the great toe was intact. He also had decreased sensation in the left leg in a dermatomal distribution at L2-3 and L3-4. Coordination: Normal finger-to- nose. Gait was not assessed due to the patient's lower extremity weakness. DIAGNOSTIC STUDIES/LAB DATA: WBC of 10.4, hemoglobin 12.6, hematocrit of 38, platelet function of 201. Sodium of 137, potassium of 4.2, anion gap of 5, BUN of 18, creatinine of 1.03. Urinalysis: No pyuria. CT of the head was obtained today and showed no acute intracranial abnormality. He has global cerebral atrophy. CT of the lumbar spine showed moderate narrowing of the central canal at L2-L3 through L5-S1. He has osteopenia. He has degenerative disk disease. He had multilevel neural foraminal stenosis, worse on the right L2-L3, L3-L4 than the left. Pelvis CT showed no acute osseous injury. ASSESSMENT: 1. Mr. Linoel Dewitt is a 78-year-old man with history of Parkinson's disease, on Sinemet, who presents with progressive lower extremity weakness mostly involving the left lower extremity as well as one fall last week - I suspect that the cause of his presentation is multifactorial and is mostly related to degenerative disk disease of the lumbar spine affecting the L2-L3 and L3-L4 myotomal distribution. In addition, the patient has longstanding Parkinson's disease as well as peripheral neuropathy on examination that are I am sure causing some worsening of his mobility in addition to the lumbar spine disease. 2. Parkinson's disease - on Sinemet 25/100 1.5 tablets 3 times a day. He seems to be stable in the sense that he has minimal tremors and no cogwheel rigidity. I will continue the same dose at this time. 3. History of atrial fibrillation, on Pradaxa - the patient is at high risk for falls. We will continue the anticoagulation therapy for now. PLAN: 1. I ordered the following laboratory testing: TSH, CK, and B12 to evaluate for metabolic causes of lower extremity weakness. 2. Start the patient on Decadron 4 mg p.o. daily for the next 5-7 days. Please start the patient on a PPI and continue his vitamin D and calcium supplementation while he is on steroids. 3. The elevation in CRP needs further evaluation. Can this be elevated due to his history of gout. We may consider also ordering an ESR level. 4. Please consult Physical Therapy. 5. The patient will need rehabilitation. 6. If the patient tolerates steroids, I may start Azilect in order to help with the patient's Parkinson's disease and especially his gait. I did not want to initiate both medications the same time. 7. Continue neuro checks every 4 hours. 8. Please admit to the hospitalist service. 9. I ordered an MRI of the lumbar spine without contrast to evaluate the degree of lumbar spine disease. The patient would not be a candidate nor does the patient want any surgery, but this is to confirm the degree of his arthritis in the low back. I discussed these findings with the patient's son, Lionel Staley, as well as Dr. Sen. TIME SPENT: I spent a total of 75 minutes and greater than 50% of that was spent directly reviewing the medical chart, obtaining history, examining the patient, and discussing the treatment plan and prognosis. Our goal here is to get him back on his feet, may be ambulate using a walker by participating in rehabilitation and therapies. [id number]/CPS #: [id number] RADHA
[2018-01-27] MEDS ORDERED: PROPAFENONE 225 MG PO ONE (22:00)
[2018-01-28] MEDS ORDERED: Furosemide TAB* 20 MG PO SCH (09:00)
[2018-01-28] MEDS: Carbidopa/Levodop 25/100 MG TAB(*) PO SCH ×3 (09:27→20:59)
[2018-01-28] MEDS: Acetaminophen TAB* 325 MG PO SCH ×4 (09:28→20:58)
[2018-01-28] MEDS: Potassium Chlor TAB* 10 MEQ TAB.ER PO SCH (09:30)
[2018-01-28] MEDS: Allopurinol TAB* 100 MG PO SCH ×2 (09:30→20:57)
[2018-01-28] MEDS: Timolol 0.5% OPTH.SOL* BTL RIGHT EYE SCH (09:31)
[2018-01-28] MEDS: CMC: Dabigatran CAP(NF) 150 MG CAP PO SCH ×2 (09:32→20:58)
[2018-01-28] MEDS: DULoxetine DR CAP* 30 MG CAP.DR PO SCH (09:32)
[2018-01-28] MEDS: Metoprolol Succinate XL TAB* 100 MG PO SCH (09:38)
[2018-01-28] MEDS: traMADol TAB* 50 MG PO PRN (09:45)
[2018-01-28] MEDS: Cholecalciferol TAB* 1000 UNITS PO SCH (11:30)
[2018-01-28] MEDS: PROPAFENONE 425 MG PO SCH ×2 (11:43→20:59)
--- NOTE | 2018-01-28 16:05 | PN ---
Subjective Date of Service: 01/28/18 Interval History: Pain about the same as yesterday. No bowel c/o. Appetite OK. No new c/o. Family History: Findings - Prostate and breast ca. Social History: Findings - QUit pipe smoking many yrs ago. Lives with his son who is his SDM. 2 daughters. No alcohol abuse. Past Medical History: Findings - Parkinson's, gout, atrial fib, seizure disorder 20 yrs ago--no AED, MICHAEL won't use CPAP. R DORON, BTKA, cholecystectomy, appy, cataract sx. Objective Active Medications: Acetaminophen (Tylenol Tab*) 650 mg PO QID [facility] Last Admin: 01/28/18 13:43 Dose: 650 mg Allopurinol (Zyloprim Tab*) 100 mg PO BID [facility] Last Admin: 01/28/18 09:30 Dose: 100 mg Baclofen (Lioresal Tab*) 5 mg PO BID [facility] Carbidopa/Levodopa (Sinemet 25/100 Tab(*)) 1.5 tab PO TID [facility] Last Admin: 01/28/18 13:42 Dose: 1.5 tab Cholecalciferol (Vitamin D Tab*) 2,000 units PO DAILY [facility] Last Admin: 01/28/18 11:30 Dose: 2,000 units Dabigatran (Pradaxa Cap(Nf)) 150 mg PO BID [facility] Last Admin: 01/28/18 09:32 Dose: 150 mg Duloxetine HCl (Cymbalta Cap*) 30 mg PO QAM [facility] Last Admin: 01/28/18 09:32 Dose: 30 mg Metoprolol Succinate (Toprol Xl Tab*) 50 mg PO DAILY [facility] Last Admin: 01/28/18 09:38 Dose: 50 mg Potassium Chloride (Klor Con Er Tab*) 10 meq PO DAILY [facility] Last Admin: 01/28/18 09:30 Dose: 10 meq Prednisone (Deltasone Tab*) 40 mg PO DAILY [facility] Stop: 01/30/18 23:59 Propafenone HCl (Rythmol Er (Nf)) 425 mg PO BID [facility] Last Admin: 01/28/18 11:43 Dose: 425 mg Timolol Maleate (Timoptic 0.5% Opth*) 1 drop RIGHT EYE DAILY [facility] Last Admin: 01/28/18 09:31 Dose: 1 drop Tramadol HCl (Ultram*) 50 mg PO Q8H PRN PRN Reason: PAIN Last Admin: 01/28/18 09:45 Dose: 50 mg Vital Signs - 8 hr 01/28/18 01/28/18 01/28/18 08:00 09:45 10:36 Temperature Pulse Rate 67 Respiratory 12 12 12 Rate Blood Pressure 111/47 (mmHg) O2 Sat by Pulse 98 Oximetry 01/28/18 01/28/18 11:08 12:53 Temperature 97.1 F Pulse Rate 64 Respiratory 15 15 Rate Blood Pressure 112/49 (mmHg) O2 Sat by Pulse 99 Oximetry Oxygen Devices in Use Now: None Appearance: Alert, in a chair. Flat affect, looks comfortable. Eyes: No Scleral Icterus Extremities: No Edema, No Clubbing, Cyanosis, - Neurological: Alert and Oriented x 3, NL Sensation - Parkinsonian facies. No tremo. Result Diagrams: 01/27/18 10:08 01/27/18 10:08 Additional Lab and Data: Lab Results 01/27/18 01/27/18 01/27/18 Range/Units 09:52 10:08 10:08 WBC 10.4 (3.5-10.8) 10^3/ul RBC 3.84 L (4.00-5.40) 10^6/ul Hgb 12.6 L (14.0-18.0) g/dl Hct 38 L (42-52) % MCV 99 H (80-94) fL MCH 33 H (27-31) pg MCHC 33 (31-36) g/dl RDW 16 H (10.5-15) % Plt Count 201 (150-450) 10^3/ul MPV 7.6 (7.4-10.4) um3 Neut % (Auto) 66.2 (38-83) % Lymph % (Auto) 18.9 L (25-47) % [place] % (Auto) 11.4 H (0-7) % Eos % (Auto) 2.8 (0-6) % Baso % (Auto) 0.7 (0-2) % Absolute Neuts (auto) 6.9 (1.5-7.7) 10^3/ul Absolute Lymphs (auto) 2.0 (1.0-4.8) 10^3/ul Absolute Monos (auto) 1.2 H (0-0.8) 10^3/ul Absolute Eos (auto) 0.3 (0-0.6) 10^3/ul Absolute Basos (auto) 0.1 (0-0.2) 10^3/ul Absolute Nucleated RBC 0 10^3/ul Nucleated RBC % 0.1 Sodium 137 (135-145) mmol/L Potassium 4.2 (3.5-5.0) mmol/L Chloride 98 L (101-111) mmol/L Carbon Dioxide 34 H (22-32) mmol/L Anion Gap 5 (2-11) mmol/L BUN 18 (6-24) mg/dL Creatinine 1.03 (0.67-1.17) mg/dL Est GFR ( Amer) 84.3 (>60) Est GFR (Non-Af Amer) 69.7 (>60) BUN/Creatinine Ratio 17.5 (8-20) Glucose 104 H (70-100) mg/dL Calcium 8.8 (8.6-10.3) mg/dL Total Bilirubin 0.50 (0.2-1.0) mg/dL AST 10 L (13-39) U/L ALT < 3 L (7-52) U/L Alkaline Phosphatase 118 H (34-104) U/L C-React Prot High Sens 35.15 H (<2.00) mg/L Total Protein 6.0 L (6.4-8.9) g/dL Albumin 3.1 L (3.2-5.2) g/dL Globulin 2.9 (2-4) g/dL Albumin/Globulin Ratio 1.1 (1-3) Urine Color Straw Urine Appearance Clear Urine pH 5.0 (5-9) Ur Specific [place] 1.006 L (1.010-1.030) Urine Protein Negative (Negative) Urine Ketones Negative (Negative) Urine Blood Negative (Negative) Urine Nitrate Negative (Negative) Urine Bilirubin Negative (Negative) Urine Urobilinogen Negative (Negative) Ur Leukocyte Esterase Negative (Negative) Urine Glucose Negative (Negative) Assess/Plan/Problems-Billing Assessment: - Patient Problems (1) Low back pain Current Visit: Yes Status: Acute Code(s): M54.5 - LOW BACK PAIN SNOMED Code(s): 306583015 Comment: He can't have MRI due to metallic FB in R orbit. Tramadol PRN plus scheduled APAP. Short course prednisone 40 mg daily start 01/28 4 PM. He had DXM 8 mg in ED 01/27. (2) Parkinsons disease Current Visit: No Status: Acute Code(s): G20 - PARKINSON'S DISEASE SNOMED Code(s): 74267036 Comment: Continue home dose of sinemet. Dr. Mosquera ordered baclofen to start 01/28 PM. Pain is currently limting his ambulation. (3) Paroxysmal A-fib Current Visit: No Status: Acute Code(s): I48.0 - PAROXYSMAL ATRIAL FIBRILLATION SNOMED Code(s): 040225818 Comment: Continue Metoprolol and Propafenone, dabigatran. (4) Hypoxia Current Visit: No Status: Acute Code(s): R09.02 - HYPOXEMIA SNOMED Code(s) : 908018337 Comment: - Pt with 2L NC requirement. - CXR shows low lung volumes without infiltrate. B/L pleural effusions. CTA negative. - Recommend mobility and incentive spirometry. (5) MICHAEL (obstructive sleep apnea) Current Visit: No Status: Acute Code(s): G47.33 - OBSTRUCTIVE SLEEP APNEA ( ADULT) (PEDIATRIC) SNOMED Code(s): 25537911 Comment: - Not Compliant with CPAP at home--last used abaout 3 yrs ago. - Overnight Pulse oximetry on RA ordered.
[2018-01-28] MEDS: predniSONE TAB* 20 MG PO SCH (16:49)
[2018-01-28] MEDS: Baclofen TAB* 10 MG PO SCH (21:01)
[2018-01-29] MEDS ORDERED: Melatonin 3 MG TAB PO PRN (03:09)
[2018-01-29] MEDS: Timolol 0.5% OPTH.SOL* BTL RIGHT EYE SCH (09:48)
[2018-01-29] MEDS: Cholecalciferol TAB* 1000 UNITS PO SCH (09:48)
[2018-01-29] MEDS: predniSONE TAB* 20 MG PO SCH (09:49)
[2018-01-29] MEDS: Allopurinol TAB* 100 MG PO SCH ×2 (09:49→21:52)
[2018-01-29] MEDS: Potassium Chlor TAB* 10 MEQ TAB.ER PO SCH (09:49)
[2018-01-29] MEDS: DULoxetine DR CAP* 30 MG CAP.DR PO SCH (09:49)
[2018-01-29] MEDS: Acetaminophen TAB* 325 MG PO SCH ×4 (09:49→21:49)
[2018-01-29] MEDS: CMC: Dabigatran CAP(NF) 150 MG CAP PO SCH ×2 (09:50→21:50)
[2018-01-29] MEDS: PROPAFENONE 425 MG PO SCH ×2 (09:51→21:45)
[2018-01-29] MEDS: Baclofen TAB* 10 MG PO SCH ×2 (09:53→21:52)
[2018-01-29] MEDS: Metoprolol Succinate XL TAB* 100 MG PO SCH (09:54)
[2018-01-29] MEDS: Carbidopa/Levodop 25/100 MG TAB(*) PO SCH ×3 (09:55→21:49)
[2018-01-29] MEDS: traMADol TAB* 50 MG PO PRN (10:50)
--- NOTE | 2018-01-29 11:30 | PN ---
NEUROLOGY PROGRESS NOTE: DATE OF SERVICE: 01/28/18 PRIMARY PROVIDER: Lukasz Cintron MD CHIEF COMPLAINT: Neurology is following for evaluation of lower extremity weakness and back pain. SUBJECTIVE: The patient continues to complain of back pain. He received Decadron, which seemed to slightly help as he is able to sit at the nearby chair today. However, the pain is mostly localized into the lower spine, it is achy in nature, nonradiating today, and not associated with any impairment in his bowel or bladder functions. He denied any fevers or chills. He has trouble moving around due to stimulation and induction of the pain. REVIEW OF SYSTEMS: He denies any neck pain. He denies any new weakness. I discussed the case wit Dr. Roberts from Radiology. The patient was unable to undergo an MRI of the lumbar spine yesterday due to some metal behind his eye. This is a problem because further evaluation cannot be completed at this time. CT myelogram is not really indicated if surgery is not considered since the family and the patient refused any potential surgical interventions. After reviewing the case with Dr. 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 Typically, patients with this condition can develop significant amount of low back pain. MEDICATIONS: 1. Acetaminophen 650 mg by mouth 4 times a day. 2. Allopurinol 100 mg by mouth twice daily. 3. Carbidopa/levodopa 1.5 tablets p.o. 3 times daily. 4. Vitamin D 2000 units p.o. daily. 5. Pradaxa 150 mg p.o. twice daily. 6. Cymbalta 30 mg in the morning. 7. Metoprolol 50 mg daily. 8. Potassium chloride 10 mEq p.o. daily. 9. Propafenone 425 mg twice daily. 10. Timolol 1 drop in the right eye. 11. Tramadol 50 mg p.o. every 8 hours as needed. PHYSICAL EXAMINATION: Vitals: Temperature 97.1, pulse rate of 64, respiratory rate of 18, oxygen saturation 99, blood pressure of 112/48. General: A well- nourished, well-developed elderly man who appears to be slightly distressed due to the low back pain. He is cooperative. He is hard of hearing. Head: Normocephalic, atraumatic. Neck: Supple, symmetrical with no carotid bruit. No lymphadenopathy. Cardiovascular: Regular rate, rhythm. Normal S1, S2. Extremities: Limited range of motion of bilateral upper extremity due to rotator cuff injury. Psych: Affect is broad and normal mood. Neurological Examination: The patient is awake and alert; oriented to person, place, time, and general circumstances. He does have psychomotor slowing. He has no dysarthria. He does have mild hypophonia. He has masked facies. Cranial Nerves: Normal confrontation bilaterally. Pupils equal, round, reactive to light. There are no facial asymmetry. Tongue is symmetric in midline. He has difficulty in hearing throughout the history process. Motor: There is no abnormal movement except for slight resting tremor, mostly at the ankles. There were no tremors, steady on upper extremities. The patient had trouble with hip flexion, which was graded as 4/5 on the right and 3/5 on the left. He also has trouble with knee extension, which is graded as 4/5 on the left and 4+ on the right. Otherwise, he is 5/5 in the distal lower extremities. Reflexes 1 + throughout except 0 at the left patella and 0 at bilateral ankles. Plantar flexor bilaterally. Sensation is reduced to light touch and pinprick and temperature sensation in the distal to proximal sensory gradient, demarcation around the mid shins bilaterally. Did not assess gait due to his pain. ASSESSMENT: Mr. Lionel Dewitt is a 78-year-old with history of Parkinson's , on Sinemet. The Parkinson's seems to be well control. He has subacute low back pain limiting his ability to mobilize with some associated symptoms of lower extremity weakness, mostly involving the left lower extremity. 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 I do not suspect the patient has an epidural abscess given the lack of fever and normal white count. I am not quite sure why the CRP is elevated at this point. I wonder if the patient has any underlying inflammatory disease or it could be elevated related to gout although he does not appear to be in a flare-up. I do not suspect he has an epidural hematoma since it would have been picked up on the CT of the lumbar spine. CT myelogram is not indicated as the patient is not interested in any surgical prevention and wants to focus on conservative management with medication and physical therapy. This should be our goal at this point. I started the patient on prednisone 40 mg daily for the next 3-4 days. Also started the patient on low-dose baclofen 5 mg twice daily. Side effects of baclofen include but are not limited to, and were discussed with the patient, drowsiness. He should not stop baclofen abruptly. We can consider starting gabapentin or other medications to help with his pain if this is ineffective. Epidural steroid injection may be an option in the future, but he would need to be off Pradaxa. 2. Parkinson's disease, stable on Sinemet 25/100 mg 1.5 tablets 3 times daily. I am not going to add Azilect since the patient's Parkinson is under control. He needs physical therapy. I discussed the case with Dr. Lukasz Cintron MD TIME SPENT: I also spent a total of 30 minutes and greater than 50% was spent directly reviewing the medical chart, examining the patient, education, counseling, and discussing the treatment plan. I discussed the treatment plan with the patient's granddaughter, who is Lionel Gonzalez's niece, who is a nurse here at [facility], who verbalized understanding. I will follow up in the morning. [id number]/[facility] #: [id number] RADHA
[2018-01-29] MEDS: Gabapentin CAP(*) 100 MG PO SCH ×2 (13:32→21:50)
--- NOTE | 2018-01-29 15:35 | PN ---
Subjective Date of Service: 01/29/18 Interval History: Pt seen and examined. Meds and labs reviewed ROS: Complains of 10/10 back pain. Denied WAGNER/dizziness, F/C, N/V, CP, SOB, increased cough, sputum production, abd pain, diarrhea, constipation, dysuria, myalgias, arthralgias, throat pain, and new skin lesions. The rest of the 14 point ROS are unremarkable. PHYSICAL EXAM: GEN APPEARANCE: Awake, not in acute distress HEENT: NC/AT, PERRLA, moist oral mucosa, (-) throat erythema NECK: Soft, supple, (-) cervical LAD, (-)JVD HEART: S1S2 WNL, RRR, No MRG CHEST: CTA, BL, GAE, No W/R/R ABD: Soft, ND/NT, NABS 4x Q EXT: No C/C/E SKIN: Warm to touch PSYCH: No active psychosis, hallucinations, depression, SI/HI Family History: Findings - Prostate and breast ca. Social History: Findings - QUit pipe smoking many yrs ago. Lives with his son who is his SDM. 2 daughters. No alcohol abuse. Past Medical History: Findings - Parkinson's, gout, atrial fib, seizure disorder 20 yrs ago--no AED, MICHAEL won't use CPAP. R DORON, BTKA, cholecystectomy, appy, cataract sx. Objective Active Medications: Acetaminophen (Tylenol Tab*) 650 mg PO QID [facility] Last Admin: 01/29/18 13:31 Dose: 650 mg Allopurinol (Zyloprim Tab*) 100 mg PO BID [facility] Last Admin: 01/29/18 09:49 Dose: 100 mg Baclofen (Lioresal Tab*) 5 mg PO BID [facility] Last Admin: 01/29/18 09:53 Dose: 5 mg Carbidopa/Levodopa (Sinemet 25/100 Tab(*)) 1.5 tab PO TID [facility] Last Admin: 01/29/18 13:32 Dose: 1.5 tab Cholecalciferol (Vitamin D Tab*) 2,000 units PO DAILY [facility] Last Admin: 01/29/18 09:48 Dose: 2,000 units Dabigatran (Pradaxa Cap(Nf)) 150 mg PO BID [facility] Last Admin: 01/29/18 09:50 Dose: 150 mg Duloxetine HCl (Cymbalta Cap*) 30 mg PO QAM [facility] Last Admin: 01/29/18 09:49 Dose: 30 mg Gabapentin (Neurontin Cap(*)) 100 mg PO TID [facility] Last Admin: 01/29/18 13:32 Dose: 100 mg Lidocaine (Lidoderm 5% Patch*) 1 patch TRANSDERM DAILY [facility] Melatonin (Melatonin) 3 mg PO BEDTIME PRN; Protocol PRN Reason: Sleep Last Admin: 01/29/18 03:29 Dose: 3 mg Metoprolol Succinate (Toprol Xl Tab*) 50 mg PO DAILY [facility] Last Admin: 01/29/18 09:54 Dose: 50 mg Morphine Sulfate (Ms Contin(*)) 15 mg PO BID [facility] Pharmacy Profile Note (Lidocaine Patch Remove*) 1 note N/A 2100 [facility] Potassium Chloride (Klor Con Er Tab*) 10 meq PO DAILY [facility] Last Admin: 01/29/18 09:49 Dose: 10 meq Prednisone (Deltasone Tab*) 40 mg PO DAILY [facility] Stop: 01/30/18 23:59 Last Admin: 01/29/18 09:49 Dose: 40 mg Propafenone HCl (Rythmol Er (Nf)) 425 mg PO BID [facility] Last Admin: 01/29/18 09:51 Dose: 425 mg Timolol Maleate (Timoptic 0.5% Opth*) 1 drop RIGHT EYE DAILY [facility] Last Admin: 01/29/18 09:48 Dose: 1 drop Tramadol HCl (Ultram*) 50 mg PO Q8H PRN PRN Reason: PAIN Last Admin: 01/29/18 10:50 Dose: 50 mg Vital Signs - 8 hr 01/29/18 01/29/18 01/29/18 08:00 08:34 10:50 Temperature 98.2 F Pulse Rate 65 Respiratory 17 19 18 Rate Blood Pressure 135/62 (mmHg) O2 Sat by Pulse 97 Oximetry 01/29/18 01/29/18 01/29/18 11:15 12:20 13:32 Temperature 97.5 F Pulse Rate 65 Respiratory 20 18 17 Rate Blood Pressure 108/44 (mmHg) O2 Sat by Pulse 99 Oximetry Oxygen Devices in Use Now: Nasal Cannula Result Diagrams: 01/27/18 10:08 01/27/18 10:08 Additional Lab and Data: Lab Results 01/27/18 01/27/18 01/27/18 Range/Units 09:52 10:08 10:08 WBC 10.4 (3.5-10.8) 10^3/ul RBC 3.84 L (4.00-5.40) 10^6/ul Hgb 12.6 L (14.0-18.0) g/dl Hct 38 L (42-52) % MCV 99 H (80-94) fL MCH 33 H (27-31) pg MCHC 33 (31-36) g/dl RDW 16 H (10.5-15) % Plt Count 201 (150-450) 10^3/ul MPV 7.6 (7.4-10.4) um3 Neut % (Auto) 66.2 (38-83) % Lymph % (Auto) 18.9 L (25-47) % [place] % (Auto) 11.4 H (0-7) % Eos % (Auto) 2.8 (0-6) % Baso % (Auto) 0.7 (0-2) % Absolute Neuts (auto) 6.9 (1.5-7.7) 10^3/ul Absolute Lymphs (auto) 2.0 (1.0-4.8) 10^3/ul Absolute Monos (auto) 1.2 H (0-0.8) 10^3/ul Absolute Eos (auto) 0.3 (0-0.6) 10^3/ul Absolute Basos (auto) 0.1 (0-0.2) 10^3/ul Absolute Nucleated RBC 0 10^3/ul Nucleated RBC % 0.1 Sodium 137 (135-145) mmol/L Potassium 4.2 (3.5-5.0) mmol/L Chloride 98 L (101-111) mmol/L Carbon Dioxide 34 H (22-32) mmol/L Anion Gap 5 (2-11) mmol/L BUN 18 (6-24) mg/dL Creatinine 1.03 (0.67-1.17) mg/dL Est GFR ( Amer) 84.3 (>60) Est GFR (Non-Af Amer) 69.7 (>60) BUN/Creatinine Ratio 17.5 (8-20) Glucose 104 H (70-100) mg/dL Calcium 8.8 (8.6-10.3) mg/dL Total Bilirubin 0.50 (0.2-1.0) mg/dL AST 10 L (13-39) U/L ALT < 3 L (7-52) U/L Alkaline Phosphatase 118 H (34-104) U/L C-React Prot High Sens 35.15 H (<2.00) mg/L Total Protein 6.0 L (6.4-8.9) g/dL Albumin 3.1 L (3.2-5.2) g/dL Globulin 2.9 (2-4) g/dL Albumin/Globulin Ratio 1.1 (1-3) Urine Color Straw Urine Appearance Clear Urine pH 5.0 (5-9) Ur Specific [place] 1.006 L (1.010-1.030) Urine Protein Negative (Negative) Urine Ketones Negative (Negative) Urine Blood Negative (Negative) Urine Nitrate Negative (Negative) Urine Bilirubin Negative (Negative) Urine Urobilinogen Negative (Negative) Ur Leukocyte Esterase Negative (Negative) Urine Glucose Negative (Negative) Assess/Plan/Problems-Billing Assessment: - Patient Problems (1) Low back pain Current Visit: Yes Status: Acute Code(s): M54.5 - LOW BACK PAIN SNOMED Code(s): 511923554 Comment: -Likely mostly related to degenerative disc disease affecting L2-L3 and L3-L4 mytomal distribution -Continue PT - He can't have MRI due to metallic FB in R orbit. Tramadol PRN plus scheduled APAP. Short course prednisone 40 mg daily start 01/28 4 PM. He had DXM 8 mg in ED 01/27. -Continue Prednisone, Tramadol, Tylenol -Will add Gabapentin and Lidocaine patch (2) Parkinsons disease Current Visit: No Status: Acute Code(s): G20 - PARKINSON'S DISEASE SNOMED Code(s): 53806521 Comment: -Continue home dose of sinemet. Dr. Mosquera ordered baclofen to start 01/28 PM. -Pain is currently limting his ambulation. -Appreciate Dr. Gandhi input (3) Paroxysmal A-fib Current Visit: No Status: Acute Code(s): I48.0 - PAROXYSMAL ATRIAL FIBRILLATION SNOMED Code(s): 567260687 Comment: Continue Metoprolol and Propafenone, dabigatran. (4) Hypoxia Current Visit: Yes Status: Acute Code(s): R09.02 - HYPOXEMIA SNOMED Code(s ): 413988780 Comment: -Likely due to MICHAEL - Pt with 2L NC requirement at night and will ask for pt to have repeat O/N oximetry to titrate Sats>/=90% - CXR shows NAD - Recommend mobility and incentive spirometry. (5) MICHAEL (obstructive sleep apnea) Current Visit: No Status: Acute Code(s): G47.33 - OBSTRUCTIVE SLEEP APNEA ( ADULT) (PEDIATRIC) SNOMED Code(s): 10176129 Comment: - Not Compliant with CPAP at home--last used abaout 3 yrs ago. - Please see above discussion (6) DVT prophylaxis Current Visit: No Status: Acute Code(s): GXP9943 - SNOMED Code(s): 512475191 Comment: -Pt on Dabigatran Status and Disposition: -For possible STR placement
[2018-01-29] MEDS: Lidocaine PATCH 5%* 1 PATCH TRANSDERM SCH (17:05)
[2018-01-29] MEDS ORDERED: Acetaminophen TAB* 325 MG PO SCH (21:00)
[2018-01-29] MEDS: Morphine TAB Extended Release (*) 15 MG TAB.ER PO SCH (21:46)
[2018-01-30] MEDS: Lidocaine Patch REMOVE* 1 NOTE MISC SCH ×2 (00:14→21:22)
--- NOTE | 2018-01-30 03:00 | PN ---
NEUROLOGY PROGRESS NOTE: DATE OF SERVICE: 01/29/18 PRIMARY PROVIDER: Dr. Childress. CHIEF COMPLAINT: Mild back pain. SUBJECTIVE: The patient's back pain decreased from 10/10 to 1/10 this afternoon. He participated with physical therapy. He was able to walk with a walker. He is impressed with his progress. He continues to have memory problem due to his chronic dementia. MEDICATIONS: 1. Acetaminophen 650 mg 4 times a day as scheduled. 2. Allopurinol 100 mg p.o. twice daily. 3. Baclofen 5 mg p.o. twice daily. 4. Carbidopa levodopa 25/100, 1.5 tablets by mouth 3 times a day. 5. Vitamin D 2000 units p.o. daily. 6. Dabigatran 150 mg p.o. twice daily. 7. Cymbalta 30 mg p.o. in the morning. 8. Gabapentin that was added today by Dr. Childress, 100 mg by mouth 3 times daily. 9. Lidocaine patch, 1 patch transdermal daily. 10. Melatonin 3 mg p.o. at bedtime. 11. Metoprolol 50 mg p.o. daily. 12. Morphine sulfate 15 mg p.o. twice daily. 13. Potassium chloride 10 mEq p.o. daily. 14. Prednisone 40 mg p.o. daily for the next 3 days. 15. Propafenone 425 mg p.o. twice daily. 16. Tramadol 50 mg by mouth every 8 hours as needed for pain. REVIEW OF SYSTEMS: He denied any chest pain, shortness of breath, or palpitations. He denied any neck pain. He denied any new weakness. He actually thinks his lower extremity weakness is significantly improved. PHYSICAL EXAMINATION: Vitals: Temperature 97.5, pulse rate of 65, respiratory rate of 18, oxygen saturation of 99%, blood pressure 108/44. General: A well- nourished, well-developed elderly man, who is presently demented, who is in no acute distress at this time. He is impressed by the lack of significant back pain. He is cooperative. He is hard of hearing and he has his hearing aids on. Head: Normocephalic, atraumatic. Neck is supple, symmetrical with no carotid bruits. Neurologic Examination: The patient is awake and alert, oriented to person, place, and time and general circumstances. He does have psychomotor slowing. He has no dysarthria. He has mild hypophonia. He has masked facies. Cranial Nerves: Normal confrontation bilaterally. No facial asymmetry. Motor : There is no abnormal movement except for mild tremors in the upper extremities bilaterally. The tremors are resting tremors with a frequency of 3 to 4 Hz, moderate to high in amplitude. The patient has 4/5 strength in hip flexion on the left, mostly restricted due to slight tenderness in the low back , otherwise he has 5/5 strength in the lower extremity, which has improved compared to yesterday. Reflexes: 1+ throughout the upper extremity except 0 at ankles and knees bilaterally. Sensation is intact to light touch throughout. He still has distal to proximal sensory greatly demarcated around the mid shins bilaterally. He is able to stand with minimal assistance. LABORATORY DATA: No new laboratory data was obtained since 01/27/18. ASSESSMENT: 1. Mr. Lionel Dewitt is a 78-year-old male with history of Parkinson's disease controlled on Sinemet. He presented to [facility] on with subacute low back pain. During the same time, he had a fall last week. The pain seems to be under control this afternoon. The patient was able to participate with physical therapy and was able to walk, which he has not done so for a few days. Dr. Childress has added lidocaine patch as well as gabapentin. We can continue the prednisone for a total of 4 days and then discontinue. Continue low-dose baclofen 5 mg twice daily. He should be discharged with this medication. 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 I do not suspect any epidural abscess or epidural hematoma in the setting of anticoagulation therapy since the studies have been negative. Plus he is clinical improving and his pain is getting better. MRI testing cannot be performed due to metallic behind the eye. 2. Parkinson's disease. He is stable on the current regimen, Sinemet 25/100 mg one and half tablets 3 times daily. Please follow up with Dr. Hedy Woodall in 3- 4 weeks after discharge. We will arrange for a followup appointment. The patient will benefit from rehabilitation. I do not have any further neurological recommendations at this point. I will sign off, please contact me for any questions or concerns. [id number]/[facility] #: [id number] RADHA
[2018-01-30] MEDS ORDERED: NS 0.9% 1000 ML* 500 ML IV ONE (03:45)
[2018-01-30 07:09] LABS: ABS Basophils 0 10^3/ul (0-0.2); ABS Eosinophils 0 10^3/ul (0-0.6); ABS Lymphocytes 1.5 10^3/ul (1.0-4.8); ABS Monocytes 1.2 10^3/ul (0-0.8); ABS Neutrophils 12.4 10^3/ul (1.5-7.7); ABS Nucleated RBC 0 10^3/ul; Eosinophil % 0 % (0-6); Hematocrit 37 % (42-52); Hemoglobin 12.1 g/dl (14.0-18.0); Mean Corpuscular HGB Conc 33 g/dl (31-36); Mean Corpuscular Hemoglobin 33 pg (27-31); Mean Corpuscular Volume 99 fL (80-94); Mean Platelet Volume 7.3 um3 (7.4-10.4); Nucleated Red Blood Cells % 0; Platelet Count 262 10^3/ul (150-450); Red Blood Count 3.71 10^6/ul (4.00-5.40); Red Cell Distribution Width 16 % (10.5-15); White Blood Count 15.2 10^3/ul (3.5-10.8)
[2018-01-30 07:23] LABS: EGFR Non-African American 78.4 (>60)
[2018-01-30] MEDS: Timolol 0.5% OPTH.SOL* BTL RIGHT EYE SCH (08:37)
[2018-01-30] MEDS: Baclofen TAB* 10 MG PO SCH ×2 (08:39→21:16)
[2018-01-30] MEDS: Carbidopa/Levodop 25/100 MG TAB(*) PO SCH ×3 (08:40→21:16)
[2018-01-30] MEDS: Lidocaine PATCH 5%* 1 PATCH TRANSDERM SCH (08:41)
[2018-01-30] MEDS: Metoprolol Succinate XL TAB* 100 MG PO SCH (08:41)
[2018-01-30] MEDS: PROPAFENONE 425 MG PO SCH ×2 (08:42→21:18)
[2018-01-30] MEDS: Acetaminophen TAB* 325 MG PO SCH ×4 (08:42→21:15)
[2018-01-30] MEDS: CMC: Dabigatran CAP(NF) 150 MG CAP PO SCH ×2 (08:43→21:17)
[2018-01-30] MEDS: predniSONE TAB* 20 MG PO SCH (08:43)
[2018-01-30] MEDS: DULoxetine DR CAP* 30 MG CAP.DR PO SCH (08:43)
[2018-01-30] MEDS: Gabapentin CAP(*) 100 MG PO SCH ×3 (08:44→21:17)
[2018-01-30] MEDS: Cholecalciferol TAB* 1000 UNITS PO SCH (08:44)
[2018-01-30] MEDS: Morphine TAB Extended Release (*) 15 MG TAB.ER PO SCH ×2 (08:45→21:18)
[2018-01-30] MEDS: Potassium Chlor TAB* 10 MEQ TAB.ER PO SCH (08:45)
[2018-01-30] MEDS: Allopurinol TAB* 100 MG PO SCH ×2 (08:45→21:18)
[2018-01-30] MEDS ORDERED: NS 0.9% 1000 ML* 1,000 ML IV SCH (10:15)
--- NOTE | 2018-01-30 10:42 | RAD ---
Indication: Leukocytosis. Comparison: January 27, 2018 Technique: Upright AP 1050 hours Report: Suboptimal inspiration with resulting mild crowding of the pulmonary markings. No focal pulmonary lesion, compelling alveolar consolidation, pleural effusion, pneumothorax. Cardiomegaly. Unremarkable central pulmonary vasculature and mediastinal contours. IMPRESSION: #. Low lung volumes with mild crowding of the pulmonary markings. #. No evidence for pneumonia.
--- NOTE | 2018-01-30 16:57 | PN ---
Subjective Date of Service: 01/30/18 Interval History: Pt seen and examined. Meds and labs reviewed. No O/N issues. Pt no longer complains of back pain since med changes yesterday. Family requests a NeuroSx consult. Spoke with Dr. Hurst. Please see discussion below. ROS: Denied WAGNER/dizziness, F/C, N/V, CP, SOB, increased cough, sputum production , abd pain, diarrhea, constipation, dysuria, myalgias, arthralgias, throat pain , and new skin lesions. The rest of the 14 point ROS are unremarkable. PHYSICAL EXAM: GEN APPEARANCE: Awake, not in acute distress HEENT: NC/AT, PERRLA, moist oral mucosa, (-) throat erythema NECK: Soft, supple, (-) cervical LAD, (-)JVD HEART: S1S2 WNL, RRR, No MRG CHEST: CTA, BL, GAE, No W/R/R ABD: Soft, ND/NT, NABS 4x Q EXT: No C/C/E SKIN: Warm to touch PSYCH: No active psychosis, hallucinations, depression, SI/HI Family History: Findings - Prostate and breast ca. Social History: Findings - QUit pipe smoking many yrs ago. Lives with his son who is his SDM. 2 daughters. No alcohol abuse. Past Medical History: Findings - Parkinson's, gout, atrial fib, seizure disorder 20 yrs ago--no AED, MICHAEL won't use CPAP. R DORON, BTKA, cholecystectomy, appy, cataract sx. Objective Active Medications: Acetaminophen (Tylenol Tab*) 650 mg PO QID [facility] Last Admin: 01/30/18 14:04 Dose: 650 mg Allopurinol (Zyloprim Tab*) 100 mg PO BID [facility] Last Admin: 01/30/18 08:45 Dose: 100 mg Baclofen (Lioresal Tab*) 5 mg PO BID [facility] Last Admin: 01/30/18 08:39 Dose: 5 mg Carbidopa/Levodopa (Sinemet 25/100 Tab(*)) 1.5 tab PO TID [facility] Last Admin: 01/30/18 14:03 Dose: 1.5 tab Cholecalciferol (Vitamin D Tab*) 2,000 units PO DAILY [facility] Last Admin: 01/30/18 08:44 Dose: 2,000 units Dabigatran (Pradaxa Cap(Nf)) 150 mg PO BID [facility] Last Admin: 01/30/18 08:43 Dose: 150 mg Duloxetine HCl (Cymbalta Cap*) 30 mg PO QAM [facility] Last Admin: 01/30/18 08:43 Dose: 30 mg Gabapentin (Neurontin Cap(*)) 100 mg PO TID [facility] Last Admin: 01/30/18 14:04 Dose: 100 mg Sodium Chloride (Ns 0.9% 1000 Ml*) 1,000 mls @ 75 mls/hr IV PER RATE [facility] Stop: 01/30/18 23:34 Last Admin: 01/30/18 10:50 Dose: 75 mls/hr Lidocaine (Lidoderm 5% Patch*) 1 patch TRANSDERM DAILY [facility] Last Admin: 01/30/18 08:41 Dose: 1 patch Melatonin (Melatonin) 3 mg PO BEDTIME PRN; Protocol PRN Reason: Sleep Last Admin: 01/29/18 03:29 Dose: 3 mg Metoprolol Succinate (Toprol Xl Tab*) 50 mg PO DAILY [facility] Last Admin: 01/30/18 08:41 Dose: 50 mg Morphine Sulfate (Ms Contin(*)) 15 mg PO BID [facility] Last Admin: 01/30/18 08:45 Dose: 15 mg Pharmacy Profile Note (Lidocaine Patch Remove*) 1 note N/A 2100 [facility] Last Admin: 01/30/18 00:14 Dose: 1 note Potassium Chloride (Klor Con Er Tab*) 10 meq PO DAILY [facility] Last Admin: 01/30/18 08:45 Dose: 10 meq Prednisone (Deltasone Tab*) 40 mg PO DAILY [facility] Stop: 01/30/18 23:59 Last Admin: 01/30/18 08:43 Dose: 40 mg Propafenone HCl (Rythmol Er (Nf)) 425 mg PO BID [facility] Last Admin: 01/30/18 08:42 Dose: 425 mg Timolol Maleate (Timoptic 0.5% Opth*) 1 drop RIGHT EYE DAILY [facility] Last Admin: 01/30/18 08:37 Dose: 1 drop Tramadol HCl (Ultram*) 50 mg PO Q8H PRN PRN Reason: PAIN Last Admin: 01/29/18 10:50 Dose: 50 mg Vital Signs - 8 hr 01/30/18 01/30/18 01/30/18 10:50 10:51 11:15 Temperature 97.4 F Pulse Rate 58 Respiratory 16 16 20 Rate Blood Pressure 125/56 (mmHg) O2 Sat by Pulse 100 Oximetry 01/30/18 01/30/18 14:04 15:11 Temperature 98.2 F Pulse Rate 61 Respiratory 19 20 Rate Blood Pressure 104/52 (mmHg) O2 Sat by Pulse 100 Oximetry Oxygen Devices in Use Now: Nasal Cannula Result Diagrams: 01/30/18 06:49 01/30/18 06:49 Additional Lab and Data: Lab Results 01/27/18 01/27/18 01/27/18 Range/Units 09:52 10:08 10:08 WBC 10.4 (3.5-10.8) 10^3/ul RBC 3.84 L (4.00-5.40) 10^6/ul Hgb 12.6 L (14.0-18.0) g/dl Hct 38 L (42-52) % MCV 99 H (80-94) fL MCH 33 H (27-31) pg MCHC 33 (31-36) g/dl RDW 16 H (10.5-15) % Plt Count 201 (150-450) 10^3/ul MPV 7.6 (7.4-10.4) um3 Neut % (Auto) 66.2 (38-83) % Lymph % (Auto) 18.9 L (25-47) % [place] % (Auto) 11.4 H (0-7) % Eos % (Auto) 2.8 (0-6) % Baso % (Auto) 0.7 (0-2) % Absolute Neuts (auto) 6.9 (1.5-7.7) 10^3/ul Absolute Lymphs (auto) 2.0 (1.0-4.8) 10^3/ul Absolute Monos (auto) 1.2 H (0-0.8) 10^3/ul Absolute Eos (auto) 0.3 (0-0.6) 10^3/ul Absolute Basos (auto) 0.1 (0-0.2) 10^3/ul Absolute Nucleated RBC 0 10^3/ul Nucleated RBC % 0.1 Sodium 137 (135-145) mmol/L Potassium 4.2 (3.5-5.0) mmol/L Chloride 98 L (101-111) mmol/L Carbon Dioxide 34 H (22-32) mmol/L Anion Gap 5 (2-11) mmol/L BUN 18 (6-24) mg/dL Creatinine 1.03 (0.67-1.17) mg/dL Est GFR ( Amer) 84.3 (>60) Est GFR (Non-Af Amer) 69.7 (>60) BUN/Creatinine Ratio 17.5 (8-20) Glucose 104 H (70-100) mg/dL Calcium 8.8 (8.6-10.3) mg/dL Total Bilirubin 0.50 (0.2-1.0) mg/dL AST 10 L (13-39) U/L ALT < 3 L (7-52) U/L Alkaline Phosphatase 118 H (34-104) U/L C-React Prot High Sens 35.15 H (<2.00) mg/L Total Protein 6.0 L (6.4-8.9) g/dL Albumin 3.1 L (3.2-5.2) g/dL Globulin 2.9 (2-4) g/dL Albumin/Globulin Ratio 1.1 (1-3) Urine Color Straw Urine Appearance Clear Urine pH 5.0 (5-9) Ur Specific [place] 1.006 L (1.010-1.030) Urine Protein Negative (Negative) Urine Ketones Negative (Negative) Urine Blood Negative (Negative) Urine Nitrate Negative (Negative) Urine Bilirubin Negative (Negative) Urine Urobilinogen Negative (Negative) Ur Leukocyte Esterase Negative (Negative) Urine Glucose Negative (Negative) Assess/Plan/Problems-Billing Assessment: - Patient Problems (1) Low back pain Current Visit: Yes Status: Acute Code(s): M54.5 - LOW BACK PAIN SNOMED Code(s): 315593072 Comment: -Likely mostly related to degenerative disc disease affecting L2-L3 and L3-L4 mytomal distribution -Spoke with Dr. Hurst and suggested MRI, however, per MR tech, pt failed orbital x-ray and has a metallic foreign body due to his previous occupation that precludes MRI -Will await any further reccomendations from Dr. Hurst -Continue PT - He can't have MRI due to metallic FB in R orbit. Tramadol PRN plus scheduled APAP. Short course prednisone 40 mg daily start 01/28 4 PM. He had DXM 8 mg in ED 01/27. -Continue Prednisone, Tramadol, Tylenol -Continue with Morphine, Gabapentin, and Lidocaine patch -Appreciate Dr. Gandhi F/UContinue Prednisone for 4 more days, then D/C; F/U with Dr. Woodall in 3-4 weeks -Continue low dose Baclofen (2) Parkinsons disease Current Visit: No Status: Acute Code(s): G20 - PARKINSON'S DISEASE SNOMED Code(s): 27300812 Comment: -Continue home dose of sinemet. Dr. Mosquera ordered baclofen to start 01/28 PM. -Pain control has improved -Appreciate Dr. Gandhi input (3) Paroxysmal A-fib Current Visit: No Status: Acute Code(s): I48.0 - PAROXYSMAL ATRIAL FIBRILLATION SNOMED Code(s): 426471846 Comment: Continue Metoprolol and Propafenone, dabigatran. (4) Hypoxia Current Visit: Yes Status: Acute Code(s): R09.02 - HYPOXEMIA SNOMED Code(s ): 334868432 Comment: -Likely due to MICHAEL - Pt with 2L NC requirement at night due to desaturation due to MICHAEL - CXR shows NAD - Recommend mobility and incentive spirometry. (5) MICHAEL (obstructive sleep apnea) Current Visit: No Status: Acute Code(s): G47.33 - OBSTRUCTIVE SLEEP APNEA ( ADULT) (PEDIATRIC) SNOMED Code(s): 16522236 Comment: - Not Compliant with CPAP at home--last used abaout 3 yrs ago. - Please see above discussion (6) DVT prophylaxis Current Visit: No Status: Acute Code(s): HKP7022 - SNOMED Code(s): 995343696 Comment: -Pt on Dabigatran Status and Disposition: -Accepted to [facility] with bed availability this Friday
[2018-01-30 23:37] LABS: Urine Appearance Clear; Urine Blood Negative (Negative); Urine Color Amber; Urine Ketones Trace (Negative); Urine Protein Negative (Negative); Urine Specific Gravity 1.026 (1.010-1.030); Urine Urobilinogen Negative (Negative)
[2018-01-31] MEDS: Metoprolol Succinate XL TAB* 100 MG PO SCH (09:47)
[2018-01-31] MEDS: Carbidopa/Levodop 25/100 MG TAB(*) PO SCH ×3 (09:48→20:33)
[2018-01-31] MEDS: DULoxetine DR CAP* 30 MG CAP.DR PO SCH (09:48)
[2018-01-31] MEDS: Cholecalciferol TAB* 1000 UNITS PO SCH (09:48)
[2018-01-31] MEDS: Allopurinol TAB* 100 MG PO SCH ×2 (09:48→20:35)
[2018-01-31] MEDS: Morphine TAB Extended Release (*) 15 MG TAB.ER PO SCH ×2 (09:49→20:36)
[2018-01-31] MEDS: CMC: Dabigatran CAP(NF) 150 MG CAP PO SCH ×2 (09:50→20:35)
[2018-01-31] MEDS: Baclofen TAB* 10 MG PO SCH ×2 (09:50→20:35)
[2018-01-31] MEDS: Acetaminophen TAB* 325 MG PO SCH ×4 (09:51→20:39)
[2018-01-31] MEDS: Potassium Chlor TAB* 10 MEQ TAB.ER PO SCH (09:51)
[2018-01-31] MEDS: Gabapentin CAP(*) 100 MG PO SCH ×3 (09:51→20:37)
[2018-01-31] MEDS: PROPAFENONE 425 MG PO SCH ×2 (09:52→20:40)
[2018-01-31] MEDS: Timolol 0.5% OPTH.SOL* BTL RIGHT EYE SCH (09:52)
--- NOTE | 2018-01-31 11:05 | CONSULT ---
Consult Consult: Neurosurgery Consult Date of Admission: 01/27/18 Date of Consult: 01/31/18 Reason for Consult: Low back pain Referring Provider: Dr. Childress HPI: This is a 78 year old male with past medical history significant for parkinsons disease and afib who [place] [facility] [place] with complaint of low back pain and lower extremity weakness with recent fall. He is unable to provide many details of the history. He states that he fell while in the bathroom recently. He states that the back pain began after he arrived at the ED. However , he states that he has experienced lower extremity pain and weakness with ambulation for a long time. He uses a rolling walker at home. He denies numbness and tingling in the lower extremities. CT of the lumbar spine was reviewed today showing stenosis. Past Medical History: 1. Parkinsons Disease 2. Atrial fibrillation 3. MICHAEL 4. Gout Past Surgical History: 1. Right DORON 2. Bilateral TKA 3. Appendectomy 4. Cataract extractions Home Medications: 1. Allopurinol TAB* [Zyloprim 100 MG TAB*] 100 mg PO BID 01/27/18 [History Confirmed 01/27/18] 2. Carbidopa/Levodop 25/100 MG(*) [Sinemet 25/100 TAB(*)] 1.5 tab PO TID [History Confirmed 01/27/18] 3. Cholecalciferol TAB* [Vitamin D TAB*] 5,000 unit PO DAILY 01/27/18 [History Confirmed 01/27/18] 4. DULoxetine DR CAP* [Cymbalta CAP*] 60 mg PO QAM 01/27/18 [History Confirmed 01/27/18] 5. Dabigatran CAP(NF) [Pradaxa CAP(NF)] 150 mg PO BID 01/27/18 [History Confirmed 01/27/18] 6. Furosemide TAB* [Lasix TAB*] 20 mg PO QAM 01/27/18 [History Confirmed ] 7. Metoprolol Succinate XL TAB* [Toprol XL TAB*] 100 mg PO DAILY 01/27/18 [ History Confirmed 01/27/18] 8. Potassium Chlor TAB* [Klor Con ER TAB*] 10 meq PO DAILY 01/27/18 [History Confirmed 01/27/18] 9. Propafenone HCl [Propafenone HCl ER] 425 mg PO BID 01/27/18 [History Confirmed 01/27/18] 10. Timolol 0.5% OPTH.HAMIDA* [Timoptic 0.5% Opth*] 1 drop RIGHT EYE DAILY [History Confirmed 01/27/18] 11. amLODIPine TAB* [Norvasc 5 mg TAB*] 10 mg PO DAILY 01/27/18 [History Confirmed 01/27/18] Allergies: 1. Penicillins Social History: This patient currently lives with his son. No tobacco or alcohol use. ROS: Full ROS completed. Pertinent findings stated in HPI and all others negative. Patient unable to provide accurate history. Physical Exam: Vital Signs: Temp Pulse Resp BP Pulse Ox 97.8 F 56 16 138/63 99 01/31/18 07:32 01/31/18 07:32 01/31/18 09:51 01/31/18 07:32 01/31/18 07:32 General: Patient is alert and laying comfortably in bed. NAD. Oriented to person and place. HEENT: Head is normocephalic and atraumatic. PERRL, EOMI. Hearing decreased. Moist mucus membranes. Neck: Supple and symmetric. Nontender. CV: Pedal pulses difficult to palpate secondary to pedal edema bilaterally. Lungs: Breathing is nonlabored and lungs are clear. Abdomen: The abdomen is rounded, soft, nontender. NABS. Neuro: Speech is clear, able to answer questions. Disoriented to time. CN II- XII intact. Sensation intact throughout. Upper extremity strength 5/5 bilaterally. Lower extremity strength: Hip flexors 4/5 bilateral, quadriceps 4/ 5 bilaterally, hamstrings 5/5 bilaterally, dorsiflexion and plantarflexion 5/5 bilaterally, EHL 5/[address] lumbar spine on 01/27/18 shows stenosis and degenerative disc disease. Assessment and Plan: This is a 78 year old male with past medical history significant for parkinsons and afib who [place] [facility] [place] a [place] with complaint of low back pain and lower extremity weakness. CT lumbar spine shows stenosis and degenerative disc disease. He is unable to undergo MRI secondary to metal fragment in the eye. I have discussed with the patient that the additional imaging with CT myelogram would need to be obtained in order to discuss possible surgical options. However, he is not interested in lumbar spine surgery and would like to continue with current therapies. Physical therapy and rehab is recommended.
[2018-01-31] MEDS: Lidocaine PATCH 5%* 1 PATCH TRANSDERM SCH (13:19)
--- NOTE | 2018-01-31 15:19 | PN ---
Subjective Date of Service: 01/31/18 Interval History: Pt seen and examined. Meds and labs reviewed ROS: 6/10 back pain. Denied WAGNER/dizziness, F/C, N/V, CP, SOB, increased cough, sputum production, abd pain, diarrhea, constipation, dysuria, , throat pain, and new skin lesions. The rest of the 14 point ROS are unremarkable. PHYSICAL EXAM: GEN APPEARANCE: Awake, not in acute distress HEENT: NC/AT, PERRLA, moist oral mucosa, (-) throat erythema NECK: Soft, supple, (-) cervical LAD, (-)JVD HEART: S1S2 WNL, RRR, No MRG CHEST: CTA, BL, GAE, No W/R/R ABD: Soft, ND/NT, NABS 4x Q EXT: No C/C/E SKIN: Warm to touch PSYCH: No active psychosis, hallucinations, depression, SI/HI Family History: Findings - Prostate and breast ca. Social History: Findings - QUit pipe smoking many yrs ago. Lives with his son who is his SDM. 2 daughters. No alcohol abuse. Past Medical History: Findings - Parkinson's, gout, atrial fib, seizure disorder 20 yrs ago--no AED, MICHAEL won't use CPAP. R DORON, BTKA, cholecystectomy, appy, cataract sx. Objective Active Medications: Acetaminophen (Tylenol Tab*) 650 mg PO QID [facility] Last Admin: 01/31/18 13:52 Dose: 650 mg Allopurinol (Zyloprim Tab*) 100 mg PO BID [facility] Last Admin: 01/31/18 09:48 Dose: 100 mg Baclofen (Lioresal Tab*) 5 mg PO BID [facility] Last Admin: 01/31/18 09:50 Dose: 5 mg Carbidopa/Levodopa (Sinemet 25/100 Tab(*)) 1.5 tab PO TID [facility] Last Admin: 01/31/18 13:51 Dose: 1.5 tab Cholecalciferol (Vitamin D Tab*) 2,000 units PO DAILY [facility] Last Admin: 01/31/18 09:48 Dose: 2,000 units Dabigatran (Pradaxa Cap(Nf)) 150 mg PO BID [facility] Last Admin: 01/31/18 09:50 Dose: 150 mg Duloxetine HCl (Cymbalta Cap*) 30 mg PO QAM [facility] Last Admin: 01/31/18 09:48 Dose: 30 mg Gabapentin (Neurontin Cap(*)) 200 mg PO TID [facility] Lidocaine (Lidoderm 5% Patch*) 1 patch TRANSDERM DAILY [facility] Last Admin: 01/31/18 13:19 Dose: 1 patch Melatonin (Melatonin) 3 mg PO BEDTIME PRN; Protocol PRN Reason: Sleep Last Admin: 01/29/18 03:29 Dose: 3 mg Metoprolol Succinate (Toprol Xl Tab*) 50 mg PO DAILY [facility] Last Admin: 01/31/18 09:47 Dose: 50 mg Morphine Sulfate (Ms Contin(*)) 15 mg PO BID [facility] Last Admin: 01/31/18 09:49 Dose: 15 mg Pharmacy Profile Note (Lidocaine Patch Remove*) 1 note N/A 2100 [facility] Last Admin: 01/30/18 21:22 Dose: 1 note Potassium Chloride (Klor Con Er Tab*) 10 meq PO DAILY [facility] Last Admin: 01/31/18 09:51 Dose: 10 meq Propafenone HCl (Rythmol Er (Nf)) 425 mg PO BID [facility] Last Admin: 01/31/18 09:52 Dose: 425 mg Timolol Maleate (Timoptic 0.5% Opth*) 1 drop RIGHT EYE DAILY [facility] Last Admin: 01/31/18 09:52 Dose: 1 drop Tramadol HCl (Ultram*) 50 mg PO Q8H PRN PRN Reason: PAIN Last Admin: 01/29/18 10:50 Dose: 50 mg Vital Signs - 8 hr 01/31/18 01/31/18 01/31/18 07:32 09:49 09:51 Temperature 97.8 F Pulse Rate 56 Respiratory 13 16 16 Rate Blood Pressure 138/63 (mmHg) O2 Sat by Pulse 99 Oximetry 01/31/18 13:50 Temperature Pulse Rate Respiratory 14 Rate Blood Pressure (mmHg) O2 Sat by Pulse Oximetry Oxygen Devices in Use Now: Nasal Cannula Result Diagrams: 01/30/18 06:49 01/30/18 06:49 Additional Lab and Data: Lab Results 01/27/18 01/27/18 01/27/18 Range/Units 09:52 10:08 10:08 WBC 10.4 (3.5-10.8) 10^3/ul RBC 3.84 L (4.00-5.40) 10^6/ul Hgb 12.6 L (14.0-18.0) g/dl Hct 38 L (42-52) % MCV 99 H (80-94) fL MCH 33 H (27-31) pg MCHC 33 (31-36) g/dl RDW 16 H (10.5-15) % Plt Count 201 (150-450) 10^3/ul MPV 7.6 (7.4-10.4) um3 Neut % (Auto) 66.2 (38-83) % Lymph % (Auto) 18.9 L (25-47) % [place] % (Auto) 11.4 H (0-7) % Eos % (Auto) 2.8 (0-6) % Baso % (Auto) 0.7 (0-2) % Absolute Neuts (auto) 6.9 (1.5-7.7) 10^3/ul Absolute Lymphs (auto) 2.0 (1.0-4.8) 10^3/ul Absolute Monos (auto) 1.2 H (0-0.8) 10^3/ul Absolute Eos (auto) 0.3 (0-0.6) 10^3/ul Absolute Basos (auto) 0.1 (0-0.2) 10^3/ul Absolute Nucleated RBC 0 10^3/ul Nucleated RBC % 0.1 Sodium 137 (135-145) mmol/L Potassium 4.2 (3.5-5.0) mmol/L Chloride 98 L (101-111) mmol/L Carbon Dioxide 34 H (22-32) mmol/L Anion Gap 5 (2-11) mmol/L BUN 18 (6-24) mg/dL Creatinine 1.03 (0.67-1.17) mg/dL Est GFR ( Amer) 84.3 (>60) Est GFR (Non-Af Amer) 69.7 (>60) BUN/Creatinine Ratio 17.5 (8-20) Glucose 104 H (70-100) mg/dL Calcium 8.8 (8.6-10.3) mg/dL Total Bilirubin 0.50 (0.2-1.0) mg/dL AST 10 L (13-39) U/L ALT < 3 L (7-52) U/L Alkaline Phosphatase 118 H (34-104) U/L C-React Prot High Sens 35.15 H (<2.00) mg/L Total Protein 6.0 L (6.4-8.9) g/dL Albumin 3.1 L (3.2-5.2) g/dL Globulin 2.9 (2-4) g/dL Albumin/Globulin Ratio 1.1 (1-3) Urine Color Straw Urine Appearance Clear Urine pH 5.0 (5-9) Ur Specific [place] 1.006 L (1.010-1.030) Urine Protein Negative (Negative) Urine Ketones Negative (Negative) Urine Blood Negative (Negative) Urine Nitrate Negative (Negative) Urine Bilirubin Negative (Negative) Urine Urobilinogen Negative (Negative) Ur Leukocyte Esterase Negative (Negative) Urine Glucose Negative (Negative) Microbiology and Other Data: Microbiology 01/30/18 13:51 Aerobic Blood Culture - Preliminary Blood Venous No Growth Day 1 Anaerobic Blood Culture - Preliminary No Growth Day 1 01/30/18 12:58 Aerobic Blood Culture - Preliminary Blood Venous No Growth Day 1 Anaerobic Blood Culture - Preliminary No Growth Day 1 Assess/Plan/Problems-Billing Assessment: - Patient Problems (1) Low back pain Current Visit: Yes Status: Acute Code(s): M54.5 - LOW BACK PAIN SNOMED Code(s): 166611786 Comment: -Appreciate F/U by NeuroSx (Ms. Buenrostro) and given pt is not interested in surgical intervention, CT myelogram would need to be obtained, given this would only be helpful per Ms. Buenrostro if surgery is being considered; for optimized medical therapy -Will increase Gabapentin -Likely mostly related to degenerative disc disease affecting L2-L3 and L3-L4 mytomal distribution -Spoke with Dr. Hurst and suggested MRI, however, per MR tech, pt failed orbital x-ray and has a metallic foreign body due to his previous occupation that precludes MRI -Will await any further reccomendations from Dr. Hurst -Continue PT -Continue Prednisone, Tramadol, Tylenol -Continue with Morphine, Gabapentin, and Lidocaine patch -Appreciate Dr. Gandhi F/UContinue Prednisone for 3 more days, then D/C; F/U with Dr. Woodall in 3-4 weeks -Continue low dose Baclofen (2) Parkinsons disease Current Visit: No Status: Acute Code(s): G20 - PARKINSON'S DISEASE SNOMED Code(s): 58381808 Comment: -Continue home dose of sinemet. Dr. Mosquera ordered baclofen to start 01/28 PM. -Pain control has improved -Appreciate Dr. Gandhi input (3) Paroxysmal A-fib Current Visit: No Status: Acute Code(s): I48.0 - PAROXYSMAL ATRIAL FIBRILLATION SNOMED Code(s): 572467583 Comment: Continue Metoprolol and Propafenone, dabigatran. (4) Hypoxia Current Visit: Yes Status: Acute Code(s): R09.02 - HYPOXEMIA SNOMED Code(s ): 668021171 Comment: -Likely due to MICHAEL - Pt with 2L NC requirement at night due to desaturation due to MICHAEL - CXR shows NAD - Recommend mobility and incentive spirometry. (5) MICHAEL (obstructive sleep apnea) Current Visit: No Status: Acute Code(s): G47.33 - OBSTRUCTIVE SLEEP APNEA ( ADULT) (PEDIATRIC) SNOMED Code(s): 25447689 Comment: - Not Compliant with CPAP at home--last used abaout 3 yrs ago. - Please see above discussion (6) DVT prophylaxis Current Visit: No Status: Acute Code(s): EYE3684 - SNOMED Code(s): 822370462 Comment: -Pt on Dabigatran Status and Disposition: -Accepted to [facility] with bed availability this Friday
[2018-01-31] MEDS: Lidocaine Patch REMOVE* 1 NOTE MISC SCH (20:45)
[2018-01-31] MEDS ORDERED: Tamsulosin CAP* 0.4 MG PO SCH (21:00)
[2018-01-31] MEDS ORDERED: Magnesium Hydroxide LIQ* 30 ML UDC PO ONE (21:51)
[2018-02-01] MEDS: Acetaminophen TAB* 325 MG PO SCH ×2 (08:47→12:14)
[2018-02-01] MEDS: CMC: Dabigatran CAP(NF) 150 MG CAP PO SCH (08:48)
[2018-02-01] MEDS: Allopurinol TAB* 100 MG PO SCH (08:48)
[2018-02-01] MEDS: Gabapentin CAP(*) 100 MG PO SCH ×2 (08:49→14:10)
[2018-02-01] MEDS: DULoxetine DR CAP* 30 MG CAP.DR PO SCH (08:49)
[2018-02-01] MEDS: Potassium Chlor TAB* 10 MEQ TAB.ER PO SCH (08:49)
[2018-02-01] MEDS: Baclofen TAB* 10 MG PO SCH (08:50)
[2018-02-01] MEDS: Morphine TAB Extended Release (*) 15 MG TAB.ER PO SCH (08:50)
[2018-02-01] MEDS: Cholecalciferol TAB* 1000 UNITS PO SCH (08:51)
[2018-02-01] MEDS: Metoprolol Succinate XL TAB* 100 MG PO SCH (08:51)
[2018-02-01] MEDS: Carbidopa/Levodop 25/100 MG TAB(*) PO SCH ×2 (08:52→14:09)
[2018-02-01] MEDS: Timolol 0.5% OPTH.SOL* BTL RIGHT EYE SCH (08:53)
[2018-02-01] MEDS: Lidocaine PATCH 5%* 1 PATCH TRANSDERM SCH (08:53)
[2018-02-01] MEDS: PROPAFENONE 425 MG PO SCH (09:03)
[2018-02-01] MEDS ORDERED: predniSONE TAB* 10 MG PO ONE (09:19)
[2018-02-01] MEDS ORDERED: Torsemide TAB* 20 MG PO SCH (11:00)
[2018-02-01 12:18] VITALS: BP 112/54
--- NOTE | 2018-02-01 13:35 | DS ---
CC: Dr. Cintron; Dr. Clayton Sen; Dr. Hurst; Dr. Graeme Schwartz DISCHARGE SUMMARY: DATE OF ADMISSION: DATE OF DISCHARGE: 02/01/18 DISCHARGE DIAGNOSES: As follows: 1. Severe low back pain secondary to lumbar spine stenosis and degenerative disk disease, MRI could not be done secondary to metal fragment in right eye discovered by x-ray screen. 2. History of Parkinson's disease. 3. History of paroxysmal atrial fibrillation. 4. Hypoxia, likely secondary to obstructive sleep apnea, deferred to PCP for outpatient sleep study, for 2 L nasal cannula placement q.h.s. 5. Bilateral lower extremity edema, chronic. HISTORY OF PRESENT ILLNESS/HOSPITAL COURSE: The patient is a 78-year-old gentleman with history of Parkinson's disease, atrial fibrillation, and MICHAEL, who presented to see [facility] due to his complaints of low back pain and lower extremity weakness with his recent fall. He, unfortunately, is a poor historian and unable to provide many details of his history. He mentioned that when he fell in the bathroom recently, his severe back pain began. During his hospitalization stay, his pain medications were titrated to effect with good results with currently 0/10 back pain. More specifically, he was placed on gabapentin, lidocaine patch, scheduled Tylenol dosing, prednisone, tramadol, and morphine. He was also seen in consultation by both neurosurgery service and Neurology. Neurology mentions to continue rapid titration of prednisone and currently will require only 2 more days of prednisone therapy, then discontinue, and once discharged, will be given prednisone 20 mg x1 on Friday and then 10 mg x1 on Friday, then discontinue. Per Neurosurgery, given the patient declined any further surgical modality to control his pain and given the metallic fragment incidentally found on his x-ray screen, Neurosurgery declined to do any CT myelography given this is only done for any prospective surgical candidate and hence will defer. The patient's pain has been well controlled as described above and prior to his discharge, his diuretics were then resumed and his Lasix was changed to torsemide. He was given a dose of torsemide prior to his discharge. He had been advised to follow up and/or call his PCP/facility MD at [facility] within 3 days post discharge and we will defer to any subsequent medication changes on official evaluation. To continue with weight management, heart-healthy, and low - salt diet, and to call my office regarding any questions, concerns, and/or further clarifications regarding his discharge plans and/or prescriptions and to take his medications as prescribed. PHYSICAL EXAMINATION: Shows the most recent vital signs of record with blood pressure of 110/50, 57 beats per minute heart rate, 95% saturation, temperature of 98.3 degrees Fahrenheit. General appearance: The patient is awake, alert, and oriented x3, not in acute distress. HEENT: Normocephalic, atraumatic. PERRLA. Extraocular muscles intact. Negative for icterus. Moist oral mucosa. Negative throat erythema. Neck is soft, supple with no cervical lymphadenopathy. No JVD. Heart: S1, S2 within normal limits. Regular rate and rhythm. No murmurs, rubs, or gallops. Chest: Clear to auscultation bilaterally. Good air entry. No wheezes, rales, or rhonchi. Abdomen is soft, nondistended, nontender. Normoactive bowel sounds times 4 quadrants. Extremities: No cyanosis, clubbing, with 1 to 2+ bilateral lower extremity edema, chronic. Psychiatric: No active psychosis or depression. No suicidal or homicidal ideation. Skin is warm to touch. DISCHARGE MEDICATIONS: As follows: 1. Tylenol 650 mg p.o. four times a day. 2. Allopurinol 100 mg p.o. b.i.d. 3. Baclofen 5 mg p.o. b.i.d. 4. Sinemet 25/100 mg tab, 1.5 tabs p.o. t.i.d. 5. Cholecalciferol supplementation. 6. Dabigatran 150 mg p.o. b.i.d. 7. Duloxetine 60 mg p.o. q.a.m. 8. Gabapentin 200 mg p.o. t.i.d. 9. Lidocaine patch to lower back. 10. Melatonin 3 mg p.o. q.h.s. 11. Metoprolol succinate 50 mg p.o. daily. 12. Potassium 10 mEq p.o. daily. 13. Propafenone 425 mg p.o. b.i.d. 14. Tamsulosin 0.4 mg p.o. q.h.s. 15. Timolol eye drops to right eye daily. 16. Torsemide 20 mg p.o. daily. 17. Tramadol 50 mg p.o. q.8 p.r.n. TIME SPENT: The total time spent evaluating the patient, reviewing pertinent data, and appropriate documentation is greater than 30 minutes. [id number]/[facility] #: [id number] MTDD
== END 2018-02-01 14:27 | DRG 552 ==
LOC: ED 09:37 → MED 17:54
PROVIDERS: ADMIT Internal Medicine; ATTEND Student in an Organized Health Care Education/Training Program
DX: M51.36 Other intervertebral disc degeneration, lumbar region (principal); M48.061 Spinal stenosis, lumbar region without neurogenic claudication; G20 Parkinson's disease; I48.0 Paroxysmal atrial fibrillation; G47.33 Obstructive sleep apnea (adult) (pediatric); R60.0 Localized edema; M48.27 Kissing spine, lumbosacral region; R09.02 Hypoxemia; M10.9 Gout, unspecified; Z96.641 Presence of right artificial hip joint; Z96.653 Presence of artificial knee joint, bilateral; Z88.0 Allergy status to penicillin; Z79.899 Other long term (current) drug therapy; Z80.3 Family history of malignant neoplasm of breast; Z80.42 Family history of malignant neoplasm of prostate; Z87.891 Personal history of nicotine dependence; Z81.1 Family history of alcohol abuse and dependence
CPT/HCPCS: 36415; 70030; 70450; 71045; 71111; 72131; 72192; 80053; 81003; 82550; 82607; 83735; 84100; 84443; 85025; 86141; 87040; 94762; 99284; A9270-GY; G8978-GP-CM; G8979-GP-CK; G8987-GO-CM; G8988-GO-CJ; J2270; J7512; J8540

== ENCOUNTER 2018-02-01 11:36 | Inpatient (IN) | payer MEDICARE, BC ==
[2018-02-01] MEDS ORDERED: Senna TAB PO PRN (14:46)
[2018-02-01] MEDS ORDERED: Magnesium Hydroxide LIQ* 30 ML UDC PO PRN (14:46)
[2018-02-01] MEDS ORDERED: Bisacodyl SUPP* 10 MG SUPP PR PRN (14:46)
[2018-02-01] MEDS ORDERED: Polyethylene Glycol 3350* 17 GM PACKET PO PRN (15:00)
[2018-02-01] MEDS: Morphine TAB Extended Release (*) 15 MG TAB.ER PO SCH (15:40)
--- NOTE | 2018-02-01 18:20 | HP ---
ADMISSION HISTORY AND PHYSICAL: DATE OF ADMISSION: 02/01/18 REASON FOR ADMISSION: Parkinson's disease. HISTORY OF PRESENT ILLNESS: Lionel Dewitt is a 77-year-old male with Parkinson's disease. The patient had a right total hip replacement done in May of 2017. Following the right total hip replacement, the patient had an acute encephalopathy, which was slowly resolving. The patient went to [facility] to do rehabilitation. He had a long stay at [facility] and stayed there until December of 2017. In December of 2017, his son felt, he could not return home and he moved in with his son. The patient had an additional hospitalization in late December of 2017 when he had what was felt to be an acute gouty flare causing him right ankle and right elbow pain. He has been on allopurinol since. The patient came into the hospital acutely on 01/27/18. He was not able to ambulate, which was a change in his status. After examining him in the emergency room, it was felt that he seemed to have an episode of back pain, which was causing him to be unable to ambulate. He was admitted to the hospital. An attempt was made to get an MRI, but the patient apparently has metal in his eye, which precludes him from having an MRI. He was seen by Neurology, who started him on low-dose morphine, MS Contin 15 mg twice a day, as well as a steroid pack and baclofen. The patient seemed to do better following this. He has failed to have physical therapy and occupational therapy needs. He is now being admitted for inpatient rehab so that he might return to independent living. PAST MEDICAL HISTORY: Significant for atrial fibrillation. He is on chronic anticoagulation because of it. In addition, he has a history of obstructive sleep apnea, although does not tolerate a CPAP machine. He has a history of gout, hypertension, and Parkinson's disease. CURRENT MEDICATIONS: Include: 1. Allopurinol. 2. Baclofen. 3. Sinemet. 4. Pradaxa. 5. Cymbalta. 6. Neurontin. 7. Toprol. 8. MS Contin. 9. Demadex. 10. Potassium. 11. Prednisone. 12. Rythmol. 13. Flomax, which was started acutely during this hospitalization because of trouble urinating. ALLERGIES: The patient has allergies listed to PENICILLIN. SOCIAL HISTORY: The patient is moving in to an apartment that the son is building him in his garage. There will be no steps to enter. Family will be nearby. Currently, the son administers his morning and afternoon medications as well as his evening medications. The son is his healthcare proxy and power of ruffling machine operator. The patient is a nonsmoker, nondrinker. REVIEW OF SYSTEMS: The patient reports some difficulty with constipation. PHYSICAL EXAMINATION VITAL SIGNS: The patient's temperature is 98.1, blood pressure is 110/54, pulse 56, respirations 14. HEENT: His extraocular movements appear to be intact. He does have a hearing aid bilaterally. NECK: Supple. LUNGS: Sound clear to auscultation bilaterally. HEART: Sounds are regular. S1 and S2 are audible. ABDOMEN: Soft and nontender. EXTREMITIES: Show a slightly increased tone. I did not detect any tremor. His peripheral pulses were intact. NEUROLOGIC: The patient is awake. He is alert. He is oriented to himself. Muscle strength is about 4+/5 throughout. FUNCTIONAL EXAM: He transfers with [id number] amount of assistance. ASSESSMENT: 1. Parkinson's disease. 2. Low back pain. PLAN: Our plan is to integrate him into a comprehensive and therapeutic rehab program on the following goals: 1. Physical Therapy will see the patient. They are going to work on functional transfer training, ambulation training with a walker. 2. Occupational Therapy will see the patient, work on his activities of daily living including toileting and toilet transfers. 3. Continue Pradaxa for both atrial fibrillation and DVT prophylaxis. 4. For his Parkinson's disease, we are going to continue his Sinemet. 5. For his back pain, for now, we are going to continue his gabapentin, his baclofen, and his morphine. He also has been using a Lidoderm patch. 6. For his atrial fibrillation, we will continue his Toprol-XL, his Rythmol, and his Pradaxa. 7. For prostatic hypertrophy and urinary hesitancy, we are going to continue Flomax. 8. We will taper him down of his prednisone. 9. Family training as appropriate. 10. For gout, we will continue allopurinol. 11. client services account manager will be closely involved to make sure that any services and equipment the patient requires are in place prior to discharge. 12. Home with appropriate services. ESTIMATED LENGTH OF STAY: 10 days. [id number]/[facility] #: [id number] MTDAlida
[2018-02-01] MEDS: Lidocaine Patch REMOVE* 1 NOTE MISC SCH (21:30)
[2018-02-01] MEDS: Carbidopa/Levodop 25/100 MG TAB(*) PO SCH (21:40)
[2018-02-01] MEDS: Gabapentin CAP(*) 100 MG PO SCH (21:41)
[2018-02-01] MEDS: Baclofen TAB* 10 MG PO SCH (21:42)
[2018-02-01] MEDS: CMCS - Dabigatran CAP(NF) 150 MG CAP PO SCH (21:42)
[2018-02-01] MEDS: Allopurinol TAB* 100 MG PO SCH (21:43)
[2018-02-01] MEDS: Docusate CAP* 100 MG PO SCH (21:43)
[2018-02-01] MEDS: Tamsulosin CAP* 0.4 MG PO SCH (21:44)
[2018-02-01] MEDS: PROPAFENONE 425 MG PO SCH (21:46)
[2018-02-02] MEDS: Morphine TAB Extended Release (*) 15 MG TAB.ER PO SCH (04:18)
[2018-02-02 05:49] LABS: ABS Basophils 0 10^3/ul (0-0.2); ABS Eosinophils 0.1 10^3/ul (0-0.6); ABS Lymphocytes 1.6 10^3/ul (1.0-4.8); ABS Monocytes 0.8 10^3/ul (0-0.8); ABS Neutrophils 8.6 10^3/ul (1.5-7.7); ABS Nucleated RBC 0 10^3/ul; Eosinophil % 0.6 % (0-6); Hematocrit 35 % (42-52); Hemoglobin 11.3 g/dl (14.0-18.0); Lymphocyte % 14.2 % (25-47); Mean Corpuscular HGB Conc 33 g/dl (31-36); Mean Corpuscular Hemoglobin 32 pg (27-31); Mean Corpuscular Volume 98 fL (80-94); Mean Platelet Volume 6.9 um3 (7.4-10.4); Nucleated Red Blood Cells % 0; Platelet Count 244 10^3/ul (150-450); Red Blood Count 3.52 10^6/ul (4.00-5.40); Red Cell Distribution Width 15 % (10.5-15); White Blood Count 11.1 10^3/ul (3.5-10.8)
[2018-02-02 06:08] LABS: EGFR Non-African American 81.4 (>60)
[2018-02-02] MEDS: PROPAFENONE 425 MG PO SCH ×2 (09:12→21:35)
[2018-02-02] MEDS: DULoxetine DR CAP* 30 MG CAP.DR PO SCH (09:14)
[2018-02-02] MEDS: Allopurinol TAB* 100 MG PO SCH ×2 (09:14→21:22)
[2018-02-02] MEDS: Carbidopa/Levodop 25/100 MG TAB(*) PO SCH ×3 (09:14→21:22)
[2018-02-02] MEDS: Torsemide TAB* 20 MG PO SCH (09:14)
[2018-02-02] MEDS: CMCS - Dabigatran CAP(NF) 150 MG CAP PO SCH ×2 (09:14→21:19)
[2018-02-02] MEDS: Gabapentin CAP(*) 100 MG PO SCH ×3 (09:14→21:19)
[2018-02-02] MEDS: Metoprolol Succinate XL TAB* 50 MG PO SCH (09:15)
[2018-02-02] MEDS: Timolol 0.5% OPTH.SOL* BTL RIGHT EYE SCH (09:15)
[2018-02-02] MEDS: Docusate CAP* 100 MG PO SCH ×2 (09:15→21:19)
[2018-02-02] MEDS: Potassium Chlor TAB* 10 MEQ TAB.ER PO SCH (09:15)
[2018-02-02] MEDS: predniSONE TAB* 20 MG PO SCH (09:15)
[2018-02-02] MEDS: Baclofen TAB* 10 MG PO SCH ×2 (09:28→21:21)
[2018-02-02] MEDS: Lidocaine PATCH 5%* 1 PATCH TRANSDERM SCH (09:28)
[2018-02-02 15:19] LABS: Urine Appearance Clear; Urine Blood Negative (Negative); Urine Color Straw; Urine Ketones Negative (Negative); Urine Protein Negative (Negative); Urine Red Blood Cell 1+(3-5/hpf) (Absent); Urine Specific Gravity 1.006 (1.010-1.030); Urine Urobilinogen Negative (Negative); Urine White Blood Cell 3+(>20/hpf) (Absent)
--- NOTE | 2018-02-02 17:15 | PN ---
Progress Note Date of Service: 02/02/18 Note: JUJU MALDONADO was visited. Therapy notes read and reviewed. He has seen slightly more confused according to the granddaughter. His urine was foul smelling and we sent a urine c/w a UTI. He is PCN allergic. Current Medications: Active Medications Generic Name Dose Route Start Last Admin Trade Name Freq PRN Reason Stop Dose Admin Acetaminophen 650 mg 02/01/18 14:46 Tylenol Tab* PO Q6H PRN FEVER/HEADACHE Allopurinol 100 mg 02/01/18 21:00 02/02/18 09:14 Zyloprim Tab* PO 100 mg BID PUSHPA Administration Baclofen 5 mg 02/01/18 21:00 02/02/18 09:28 Lioresal Tab* PO 5 mg BID PUSHPA Administration Bisacodyl 10 mg 02/01/18 14:46 Dulcolax Supp* OH DAILY PRN CONSTIPATION Carbidopa/Levodopa 1.5 tab 02/01/18 21:00 02/02/18 14:07 Sinemet 25/100 Tab(*) PO 1.5 tab TID PUSHPA Administration Dabigatran 150 mg 02/01/18 21:00 02/02/18 09:14 Pradaxa Cap(Nf) PO 150 mg BID PUSHPA Administration Docusate Sodium 100 mg 02/01/18 21:00 02/02/18 09:15 Colace Cap* PO 100 mg BID PUSHPA Administration Duloxetine HCl 30 mg 02/02/18 09:00 02/02/18 09:14 Cymbalta Cap* PO 30 mg DAILY PUSHPA Administration Gabapentin 200 mg 02/01/18 21:00 02/02/18 14:06 Neurontin Cap(*) PO 200 mg TID PUSHPA Administration Lidocaine 1 patch 02/02/18 09:00 02/02/18 09:28 Lidoderm 5% Patch* TRANSDERM 1 patch DAILY PUSHPA Administration Magnesium Hydroxide 30 ml 02/01/18 14:46 Milk Of Magnesia Liq* PO Q6H PRN CONSTIPATION Metoprolol Succinate 50 mg 02/02/18 09:00 02/02/18 09:15 Toprol Xl Tab* PO 50 mg DAILY PUSHPA Administration Pharmacy Profile Note 1 note 02/01/18 21:00 02/01/18 21:30 Lidocaine Patch Remove* N/A 1 note 2100 PUSHPA Administration Polyethylene Glycol/Electrolytes 17 gm 02/01/18 15:00 Miralax* PO DAILY PRN CONSTIPATION Potassium Chloride 10 meq 02/02/18 09:00 02/02/18 09:15 Klor Con Er Tab* PO 10 meq DAILY PUSHPA Administration Prednisone 20 mg 02/02/18 09:00 02/02/18 09:15 Deltasone Tab* PO 02/03/18 23:59 20 mg DAILY PUSHPA Administration Propafenone HCl 425 mg 02/01/18 21:00 02/02/18 09:12 Rythmol Er (Nf) PO Not Given Q12HR PUSHPA Senna 2 tab 02/01/18 14:46 Senokot Tab* PO BEDTIME PRN CONSTIPATION Tamsulosin HCl 0.4 mg 02/01/18 21:00 02/01/18 21:44 Flomax Cap* PO 0.4 mg BEDTIME PUSHPA Administration Timolol Maleate 1 drop 02/02/18 09:00 02/02/18 09:15 Timoptic 0.5% Opth* RIGHT EYE 1 drop DAILY PUSHPA Administration Torsemide 20 mg 02/02/18 09:00 02/02/18 09:14 Demadex* PO 20 mg DAILY PUSHPA Administration Trimethoprim/Sulfamethoxazole 1 tab 02/02/18 21:00 Bactrim Ds 800/160 Tab* PO 02/07/18 23:59 BID PUSHPA Vital Signs: Vital Signs Temp Pulse Resp BP Pulse Ox 98.5 F 67 18 116/52 95 02/02/18 15:57 02/02/18 15:57 02/02/18 15:57 02/02/18 15:57 02/02/18 15:57 Lab Results: Laboratory Results - last 24 hr 02/02/18 02/02/18 02/02/18 05:27 05:27 14:45 WBC 11.1 H RBC 3.52 L Hgb 11.3 L Hct 35 L MCV 98 H MCH 32 H MCHC 33 RDW 15 Plt Count 244 MPV 6.9 L Neut % (Auto) 77.4 Lymph % (Auto) 14.2 L Gregg % (Auto) 7.6 H Eos % (Auto) 0.6 Baso % (Auto) 0.2 Absolute Neuts (auto) 8.6 H Absolute Lymphs (auto) 1.6 Absolute Monos (auto) 0.8 Absolute Eos (auto) 0.1 Absolute Basos (auto) 0 Absolute Nucleated RBC 0 Nucleated RBC % 0 Sodium 138 Potassium 4.5 Chloride 97 L Carbon Dioxide 36 H Anion Gap 5 BUN 34 H Creatinine 0.90 Est GFR ( Amer) 98.5 Est GFR (Non-Af Amer) 81.4 BUN/Creatinine Ratio 37.8 H Glucose 118 H Calcium 8.5 L Total Bilirubin 0.50 AST 23 ALT 9 Alkaline Phosphatase 197 H Total Protein 5.6 L Albumin 3.2 Globulin 2.4 Albumin/Globulin Ratio 1.3 Urine Color Straw Urine Appearance Clear Urine pH 5.0 Ur Specific [place] 1.006 L Urine Protein Negative Urine Ketones Negative Urine Blood Negative Urine Nitrate Negative Urine Bilirubin Negative Urine Urobilinogen Negative Ur Leukocyte Esterase 3+ A Urine WBC (Auto) 3+(>20/hpf) A Urine RBC (Auto) 1+(3-5/hpf) A Urine Bacteria Absent Urine Glucose Negative Exam: GENERAL: In good spirits, answers questions LUNGS: Clear bilaterally HEART: reg rhythm ABDOMEN: Soft +BS EXTREMITIES: Slightly increased tone NEUROLOGIC: alert oriented to self. Muscle strength 4+/5 Assessment/Plan: 1. Parkinson's Disease: PT/OT. Sinemet TID 2. Confusion: Holding MS COntin. Treat UTI 3. UTI: Will try Bactrim. 4. Back Pain: Taper prednisone 5. Paroxysmal A fib: Pradaxa/Toprol/Rythmol 6. Urinary Hesitancy: Flomax 7. DVT prophylaxis: Pradaxa 8. Advanced Directives: DNR. Has MOLST 02/02/18 17:12
[2018-02-02] MEDS: Tamsulosin CAP* 0.4 MG PO SCH (21:19)
[2018-02-02] MEDS: Sulfamethox/Trimethoprim DS 800/160* TAB PO SCH (21:21)
[2018-02-02] MEDS: Lidocaine Patch REMOVE* 1 NOTE MISC SCH (21:30)
[2018-02-03] MEDS: Baclofen TAB* 10 MG PO SCH ×2 (09:08→20:53)
[2018-02-03] MEDS: Carbidopa/Levodop 25/100 MG TAB(*) PO SCH ×3 (09:09→20:56)
[2018-02-03] MEDS: predniSONE TAB* 20 MG PO SCH (09:10)
[2018-02-03] MEDS: PROPAFENONE 425 MG PO SCH ×2 (09:10→20:56)
[2018-02-03] MEDS: Allopurinol TAB* 100 MG PO SCH ×2 (09:10→21:00)
[2018-02-03] MEDS: Sulfamethox/Trimethoprim DS 800/160* TAB PO SCH ×2 (09:10→20:56)
[2018-02-03] MEDS: Torsemide TAB* 20 MG PO SCH (09:10)
[2018-02-03] MEDS: DULoxetine DR CAP* 30 MG CAP.DR PO SCH (09:11)
[2018-02-03] MEDS: Metoprolol Succinate XL TAB* 50 MG PO SCH (09:11)
[2018-02-03] MEDS: Potassium Chlor TAB* 10 MEQ TAB.ER PO SCH (09:11)
[2018-02-03] MEDS: Gabapentin CAP(*) 100 MG PO SCH ×3 (09:11→20:55)
[2018-02-03] MEDS: CMCS - Dabigatran CAP(NF) 150 MG CAP PO SCH ×2 (09:12→20:55)
[2018-02-03] MEDS: Lidocaine PATCH 5%* 1 PATCH TRANSDERM SCH (09:13)
[2018-02-03] MEDS: Docusate CAP* 100 MG PO SCH ×2 (09:13→20:55)
[2018-02-03] MEDS: Timolol 0.5% OPTH.SOL* BTL RIGHT EYE SCH (12:15)
--- NOTE | 2018-02-03 12:46 | PMRUTEAM ---
PMRU: Team Meeting Current Status: Nursing: Current Status Skin Deviations [right thumb] Other Skin Deviations [Right Elbow] Laceration Skin Deviations [Left Lower Abrasion Leg] Skin Deviation Description [ nail bitten down into nail bed; pt declines any right thumb] intervention Skin Deviation Description [ healing Right Elbow] Skin Deviation Description [ 4 months old injury from walker. Left Lower Leg] Bladder Current Status voids, incontinent. UTI Bowel Current Status bm 02/02. colace held Nutrition Current Status appetite good Medication Current Status needs reinforcement Physical Therapy: Current Status Bed Mobility Assistance Min Assist,Mod Assist,Not Tested Transfer Moblility Assistance Supervision,Contact Guard Assist Transfer/Bed Mobility Rolling Walker Recommended Devices Ambulation Assistance Supervision,Contact Guard Assist,Not Tested Ambulation Assistive Devices Rolling Walker Number of Feet Patient 50' x 2 Ambulated Stairs Assistance Not Tested Stairs Recommended Devices Two Rails Number of Stairs 6 Occupational Therapy: Current Status Upper Body Dressing Mod Assist Lower Body Dressing Max Asst Bathing Mod Assist Toileting Max Asst Toilet Transfer Contact Guard Assist Shower Transfer Min Assist Eating Independent Rec Therapy: Current Status Summary of Assessment and Pt. was open to conversation - engaged and Clinical Impression cooperative. Pt. identified with interests and active involvement in them prior to admission. Pt . was open to continued visits. Treatment Goals Pt. will engage in leisure activities while on the unit. Treatment Plan Provide RT services and encourage involvement. Social Work: Current Status Discharge Plan return home with home care svs and family support Potential for Family Training pt's family is involved and supportive Anticipated Discharge Home Destination Discharge With home care svs and family support Nutrition: Current Status Monitoring Adm for rehab r/t parkinsons disease, low back pain. Receiving regular diet/texture, and intake is good/meeting needs. No issues with constipation or skin breakdown. Slight hyperglycemia noted (118) but likely not significant. No specific further nutrition intervention anticipated. Goals: Physical Therapy: Initial Goals Bed Mobility Assistance Independent Transfer Mobility Assistance Independent Transfer/Bed Mobility Rolling Walker Recommended Devices Ambulation Independent Ambulation Recommended Devices Rolling Walker Ambulation Distance 150 Stairs Assistance Independent Stair Recommended Devices Two Rails Number of Stairs 5 Physical Therapy: Updated Goals Bed Mobility Assistance Independent Transfer Mobility Assistance Independent Transfer/Bed Mobility Rolling Walker Recommended Devices Ambulation Assistance Independent Ambulation Distance (ft) 150 Stairs Assistance Independent Stairs Recommended Devices Two Rails Number of Stairs 5 Occupational Therapy: Initial Goals Goals to be Completed in (Days 10-14 ) Upper Body Bathing Routine Supervision/Set Up Lower Body Bathing Routine Minimal Contact Assist Upper Body Dressing Routine Supervision/Set Up Lower Body Dressing Routine Minimal Contact Assist Toilet Hygeine and Clothing Modified Independent with Management Routine Toilet Transfer Routine Modified Independent with Step-In Shower Transfer Supervision/Set Up Routine Functional Transfers for ADL Modified Independent with Grooming Routine Modified Independent with Feeding Routine Modified Independent with Nursing: Goals Bladder Goal independent Bowel Goal independent Nutrition Goal 100% of all meals Medication Goal supervision Nutrition: Goals Intervention Goals 1. Maintain adequate oral intake to support maintenance of lean body mass w/o contributing to undesirable weight gain. 2. Maintain glycemic control per inpatient parameters. Social Work: Goals Discharge Plan return home with home care svs and family support Potential for Family Training pt's family is involved and supportive Anticipated Discharge Home Destination Discharge With home care svs and family support Care Plan: Care Plan ADL's - Improve/Maintain Start: 02/02/18 15:08 Freq: DAILY Status: Active Target: Protocol: Activity Type Activity Date Activity User E-Sign Co-Sign Detail Recorded Client Recorded Date Recorded By Document 02/03/18 10:26 [id number] 02/03/18 10:26 [id number] 02/03/18 10:26 [facility] Outcome: ADL's/ADL Transfers Orders/Interventions Occupational Therapy Evaluation & Treatment Device Yes Patient to receive OT 5x/wk for 60-120 Therex min/day Self Care Management Group Therapy Neuromuscular ReEducation UE/LE ADL's with Assist Yes ADL Transfers with Assist Yes Toileting: Transfers,Clothing Management Yes ,Hygeine w/Assist Light Kitchen/Laundry w/Assist Yes Progression Toward Outcome/Goals Progressing Outcome/Goals Met Pt. educated on the use of AE for LB dressing this date. Pt . continues to require the same amount of assist but anticipated to increase independence with practice and time. DVT Prophylaxis- Improve/Maintain Start: 02/01/18 19:29 Freq: QSHIFT Status: Active Target: Protocol: Activity Type Activity Date Activity User E-Sign Co-Sign Detail Recorded Client Recorded Date Recorded By Document 02/03/18 02:22 [id number] 02/03/18 02:23 [id number] 02/03/18 02:22 [facility] Outcome: DVT Prophylaxis Outcome/Goals Complies with DVT Prophylaxis /Treatment Demonstrates Knowledge of DVT Prevention/ Treatment Progression Toward Outcome/Goals Progressing Discharge Planning - Improve/Maintain Start: 02/01/18 19:29 Freq: DAILY Status: Active Target: Protocol: Activity Type Activity Date Activity User E-Sign Co-Sign Detail Recorded Client Recorded Date Recorded By Document 02/03/18 02:22 [id number] 02/03/18 02:23 [id number] 02/03/18 02:22 [facility] Outcome: Discharge Planning Update Patient Family Yes Outcome/Goals Demonstrates Understanding of Discharge Plan Progression Toward Outcome/Goals Progressing Neurological- Improve/Maintain Start: 02/01/18 19:29 Freq: QSHIFT Status: Active Target: Protocol: Activity Type Activity Date Activity User E-Sign Co-Sign Detail Recorded Client Recorded Date Recorded By Document 02/03/18 02:22 [id number] 02/03/18 02:23 [id number] 02/03/18 02:22 [facility] Outcome: Neurological Weakness/Aphasia Weakness Outcome/Goals Prevent Avoidable Neurological Decline Demonstrate Knowledge of Prevention/Tx of Neuro Disorders/ Complication Progression Toward Outcome/Goals Progressing Pain/Comfort- Improve/Maintain Start: 02/01/18 19:29 Freq: QSHIFT Status: Active Target: Protocol: Activity Type Activity Date Activity User E-Sign Co-Sign Detail Recorded Client Recorded Date Recorded By Document 02/03/18 02:22 [id number] 02/03/18 02:23 [id number] 02/03/18 02:22 [facility] Outcome: Pain/Comfort Outcome/Goals Demonstrates Knowledge and Use of Available Comfort Measures Achieves Acceptable Comfort/Pain Level as Determined by Patient/Condit Progression Toward Outcome/Goals Progressing Outcome/Goals Met Comment pt denied pain Respiratory - Improve/Maintain Start: 02/01/18 19:29 Freq: QSHIFT Status: Active Target: Protocol: Activity Type Activity Date Activity User E-Sign Co-Sign Detail Recorded Client Recorded Date Recorded By Document 02/03/18 02:22 [id number] 02/03/18 02:23 [id number] 02/03/18 02:22 [facility] Outcome: Respiratory Does Patient Have a Trach No Outcome/Goals Maintain/ Improve Baseline Respiratory Status Prevent Pneumonia/ Atelectasis Progression Toward Outcome/Goals Progressing Outcome/Goals Met Comment [address] Safety- Improve/Maintain Start: 02/01/18 19:29 Freq: QSHIFT Status: Active Target: Protocol: Activity Type Activity Date Activity User E-Sign Co-Sign Detail Recorded Client Recorded Date Recorded By Document 02/03/18 02:22 [id number] 02/03/18 02:23 [id number] 02/03/18 02:22 [facility] Outcome: Safety Outcome/Goals Remain Free of Injury or Harm Progression Toward Outcome/Goals Progressing Outcome/Goals Met Comment RODO armed Medicine Note: Length of Stay: 10 days Anticipated Discharge Destination: Home Tentative Discharge Date: February 13, 2018 Discharged to: Home with son
--- NOTE | 2018-02-03 13:06 | PN ---
Progress Note Date of Service: 02/03/18 Note: JUJU Cooper JOEL was visited. Therapy notes read and reviewed. He was discussed in interdisciplinary team rounds. Some concerns about his ability to live alone, even with aide time. His urine grew out Proteus. Await sensitivities Current Medications: Active Medications Generic Name Dose Route Start Last Admin Trade Name Freq PRN Reason Stop Dose Admin Acetaminophen 650 mg 02/01/18 14:46 Tylenol Tab* PO Q6H PRN FEVER/HEADACHE Allopurinol 100 mg 02/01/18 21:00 02/03/18 09:10 Zyloprim Tab* PO 100 mg BID PUSHPA Administration Baclofen 5 mg 02/01/18 21:00 02/03/18 09:08 Lioresal Tab* PO 5 mg BID PUSHPA Administration Bisacodyl 10 mg 02/01/18 14:46 Dulcolax Supp* [place] DAILY PRN CONSTIPATION Carbidopa/Levodopa 1.5 tab 02/01/18 21:00 02/03/18 09:09 Sinemet 25/100 Tab(*) PO 1.5 tab TID PUSHPA Administration Dabigatran 150 mg 02/01/18 21:00 02/03/18 09:12 Pradaxa Cap(Nf) PO 150 mg BID PUSHPA Administration Docusate Sodium 100 mg 02/01/18 21:00 02/03/18 09:13 Colace Cap* PO Not Given BID PUSHPA Duloxetine HCl 30 mg 02/02/18 09:00 02/03/18 09:11 Cymbalta Cap* PO 30 mg DAILY PUSHPA Administration Gabapentin 200 mg 02/01/18 21:00 02/03/18 09:11 Neurontin Cap(*) PO 200 mg TID PUSHPA Administration Lidocaine 1 patch 02/02/18 09:00 02/03/18 09:13 Lidoderm 5% Patch* TRANSDERM 1 patch DAILY PUSHPA Administration Magnesium Hydroxide 30 ml 02/01/18 14:46 Milk Of Magnesia Liq* PO Q6H PRN CONSTIPATION Metoprolol Succinate 50 mg 02/02/18 09:00 02/03/18 09:11 Toprol Xl Tab* PO 50 mg DAILY PUSHPA Administration Pharmacy Profile Note 1 note 02/01/18 21:00 02/02/18 21:30 Lidocaine Patch Remove* N/A 1 note 2100 PUSHPA Administration Polyethylene Glycol/Electrolytes 17 gm 02/01/18 15:00 Miralax* PO DAILY PRN CONSTIPATION Potassium Chloride 10 meq 02/02/18 09:00 02/03/18 09:11 Klor Con Er Tab* PO 10 meq DAILY PUSHPA Administration Prednisone 20 mg 02/02/18 09:00 02/03/18 09:10 Deltasone Tab* PO 02/03/18 23:59 20 mg DAILY PUSHPA Administration Propafenone HCl 425 mg 02/01/18 21:00 02/03/18 09:10 Rythmol Er (Nf) PO 425 mg Q12HR PUSHPA Administration Senna 2 tab 02/01/18 14:46 Senokot Tab* PO BEDTIME PRN CONSTIPATION Tamsulosin HCl 0.4 mg 02/01/18 21:00 02/02/18 21:19 Flomax Cap* PO 0.4 mg BEDTIME PUSHPA Administration Timolol Maleate 1 drop 02/02/18 09:00 02/03/18 12:15 Timoptic 0.5% Opth* RIGHT EYE 1 drop DAILY PUSHPA Administration Torsemide 20 mg 02/02/18 09:00 02/03/18 09:10 Demadex* PO 20 mg DAILY PUSHPA Administration Trimethoprim/Sulfamethoxazole 1 tab 02/02/18 21:00 02/03/18 09:10 Bactrim Ds 800/160 Tab* PO 02/07/18 23:59 1 tab BID PUSHPA Administration Vital Signs: Vital Signs Temp Pulse Resp BP Pulse Ox 97.9 F 69 18 125/62 99 02/02/18 23:54 02/02/18 23:54 02/03/18 12:18 02/02/18 23:54 02/03/18 00:05 Lab Results: Laboratory Results - last 24 hr 02/02/18 14:45 Urine Color Straw Urine Appearance Clear Urine pH 5.0 Ur Specific [place] 1.006 L Urine Protein Negative Urine Ketones Negative Urine Blood Negative Urine Nitrate Negative Urine Bilirubin Negative Urine Urobilinogen Negative Ur Leukocyte Esterase 3+ A Urine WBC (Auto) 3+(>20/hpf) A Urine RBC (Auto) 1+(3-5/hpf) A Urine Bacteria Absent Urine Glucose Negative Exam: GENERAL: In good spirits, answers questions LUNGS: Clear bilaterally HEART: reg rhythm ABDOMEN: Soft +BS EXTREMITIES: Slightly increased tone NEUROLOGIC: alert oriented to self. Muscle strength 4+/5 Assessment/Plan: 1. Parkinson's Disease: PT/OT. Sinemet TID 2. Confusion: Holding MS COntin. Treat UTI 3. UTI: Cx: 25-50K Proteus. Await sensitivities. Bactrim day #2. 4. Back Pain: Taper prednisone 5. Paroxysmal A fib: Pradaxa/Toprol/Rythmol 6. Urinary Hesitancy: Flomax 7. DVT prophylaxis: Pradaxa 8. Advanced Directives: DNR. Has MOLST 02/03/18 13:07
[2018-02-03] MEDS: Tamsulosin CAP* 0.4 MG PO SCH (21:00)
[2018-02-03] MEDS: Lidocaine Patch REMOVE* 1 NOTE MISC SCH (21:16)
[2018-02-04] MEDS: PROPAFENONE 425 MG PO SCH ×2 (08:12→20:24)
[2018-02-04] MEDS: Baclofen TAB* 10 MG PO SCH ×2 (08:12→20:25)
[2018-02-04] MEDS: Sulfamethox/Trimethoprim DS 800/160* TAB PO SCH ×2 (08:13→20:24)
[2018-02-04] MEDS: CMCS - Dabigatran CAP(NF) 150 MG CAP PO SCH ×2 (08:13→20:24)
[2018-02-04] MEDS: Allopurinol TAB* 100 MG PO SCH ×2 (08:13→20:26)
[2018-02-04] MEDS: Potassium Chlor TAB* 10 MEQ TAB.ER PO SCH (08:13)
[2018-02-04] MEDS: Torsemide TAB* 20 MG PO SCH (08:13)
[2018-02-04] MEDS: Docusate CAP* 100 MG PO SCH ×2 (08:13→20:24)
[2018-02-04] MEDS: Metoprolol Succinate XL TAB* 50 MG PO SCH (08:13)
[2018-02-04] MEDS: Carbidopa/Levodop 25/100 MG TAB(*) PO SCH ×3 (08:14→20:25)
[2018-02-04] MEDS: Gabapentin CAP(*) 100 MG PO SCH ×3 (08:14→20:24)
[2018-02-04] MEDS: DULoxetine DR CAP* 30 MG CAP.DR PO SCH (08:14)
[2018-02-04] MEDS: Timolol 0.5% OPTH.SOL* BTL RIGHT EYE SCH (08:19)
[2018-02-04] MEDS: Lidocaine PATCH 5%* 1 PATCH TRANSDERM SCH (12:01)
[2018-02-04] MEDS ORDERED: Valproic Acid CAP(*) 250 MG PO ONE (15:16)
--- NOTE | 2018-02-04 20:20 | PN ---
Progress Note Date of Service: 02/04/18 Note: JUJU MALDONADO was visited. Therapy notes read and reviewed. He had another episode of staring followed by feeling like he needed to sit. I called neurology and spoke with Dr. Cesar who reviewed his records and informed the the patient has a history of seizures and normally takes Depakote ER 1500 mg at bedtime. Not sure how this fell off his med list. I gave him a dose of short- acting depakote at 1600 and will resume Depakote ER. This likely explains his episodes. Current Medications: Active Medications Generic Name Dose Route Start Last Admin Trade Name Freq PRN Reason Stop Dose Admin Acetaminophen 650 mg 02/01/18 14:46 Tylenol Tab* PO Q6H PRN FEVER/HEADACHE Allopurinol 100 mg 02/01/18 21:00 02/04/18 08:13 Zyloprim Tab* PO 100 mg BID PUSHPA Administration Baclofen 5 mg 02/01/18 21:00 02/04/18 08:12 Lioresal Tab* PO 5 mg BID PUSHPA Administration Bisacodyl 10 mg 02/01/18 14:46 Dulcolax Supp* [place] DAILY PRN CONSTIPATION Carbidopa/Levodopa 1.5 tab 02/01/18 21:00 02/04/18 13:00 Sinemet 25/100 Tab(*) PO 1.5 tab TID PUSHPA Administration Dabigatran 150 mg 02/01/18 21:00 02/04/18 08:13 Pradaxa Cap(Nf) PO 150 mg BID PUSHPA Administration Divalproex Sodium 1,500 mg 02/04/18 21:00 Depakote Er Tab(*) PO BEDTIME PUSHPA Docusate Sodium 100 mg 02/01/18 21:00 02/04/18 08:13 Colace Cap* PO 100 mg BID PUSHPA Administration Duloxetine HCl 30 mg 02/02/18 09:00 02/04/18 08:14 Cymbalta Cap* PO 30 mg DAILY PUSHPA Administration Gabapentin 200 mg 02/01/18 21:00 02/04/18 13:01 Neurontin Cap(*) PO 200 mg TID PUSHPA Administration Lidocaine 1 patch 02/02/18 09:00 02/04/18 12:01 Lidoderm 5% Patch* TRANSDERM 1 patch DAILY PUSHPA Administration Magnesium Hydroxide 30 ml 02/01/18 14:46 Milk Of Magnesia Liq* PO Q6H PRN CONSTIPATION Metoprolol Succinate 50 mg 02/02/18 09:00 02/04/18 08:13 Toprol Xl Tab* PO 50 mg DAILY PUSHPA Administration Pharmacy Profile Note 1 note 02/01/18 21:00 02/03/18 21:16 Lidocaine Patch Remove* N/A 1 note 2100 PUSHPA Administration Polyethylene Glycol/Electrolytes 17 gm 02/01/18 15:00 Miralax* PO DAILY PRN CONSTIPATION Potassium Chloride 10 meq 02/02/18 09:00 02/04/18 08:13 Klor Con Er Tab* PO 10 meq DAILY PUSHPA Administration Propafenone HCl 425 mg 02/01/18 21:00 02/04/18 08:12 Rythmol Er (Nf) PO 425 mg Q12HR PUSHPA Administration Senna 2 tab 02/01/18 14:46 02/03/18 20:55 Senokot Tab* PO 2 tab BEDTIME PRN Administration CONSTIPATION Tamsulosin HCl 0.4 mg 02/01/18 21:00 02/03/18 21:00 Flomax Cap* PO 0.4 mg BEDTIME PUSHPA Administration Timolol Maleate 1 drop 02/02/18 09:00 02/04/18 08:19 Timoptic 0.5% Opth* RIGHT EYE 1 drop DAILY PUSHPA Administration Torsemide 20 mg 02/02/18 09:00 02/04/18 08:13 Demadex* PO 20 mg DAILY PUSHPA Administration Trimethoprim/Sulfamethoxazole 1 tab 02/02/18 21:00 02/04/18 08:13 Bactrim Ds 800/160 Tab* PO 02/07/18 23:59 1 tab BID PUSHPA Administration Vital Signs: Vital Signs Temp Pulse Resp BP Pulse Ox 97.9 F 66 16 128/49 97 02/04/18 16:16 02/04/18 16:16 02/04/18 16:16 02/04/18 16:16 02/04/18 18:28 Exam: GENERAL: In good spirits, answers questions LUNGS: Clear bilaterally HEART: reg rhythm ABDOMEN: Soft +BS EXTREMITIES: Slightly increased tone NEUROLOGIC: alert oriented to self. Muscle strength 4+/5 Assessment/Plan: 1. Parkinson's Disease: PT/OT. Sinemet TID 2. Confusion: Treat UTI and seizures 3. UTI: Cx: 25-50K Proteus. Sensitive to Bactrim. Bactrim day #09/08. 4. Back Pain: Taper prednisone 5. Paroxysmal A fib: Pradaxa/Toprol/Rythmol 6. Urinary Hesitancy: Flomax 7. DVT prophylaxis: Pradaxa 8. Advanced Directives: DNR. Has MOLST 9. Seizure Disorder: Depakote ER 1500 mg at HS 02/04/18 20:20
[2018-02-04] MEDS: Divalproex ER TAB(*) 500 MG PO SCH (20:23)
[2018-02-04] MEDS: Tamsulosin CAP* 0.4 MG PO SCH (20:24)
[2018-02-04] MEDS: Lidocaine Patch REMOVE* 1 NOTE MISC SCH (20:30)
[2018-02-04] MEDS: Acetaminophen TAB* 325 MG PO PRN (23:07)
[2018-02-05] MEDS: PROPAFENONE 425 MG PO SCH ×2 (08:38→21:12)
[2018-02-05] MEDS: Sulfamethox/Trimethoprim DS 800/160* TAB PO SCH ×2 (08:38→21:08)
[2018-02-05] MEDS: Potassium Chlor TAB* 10 MEQ TAB.ER PO SCH (08:38)
[2018-02-05] MEDS: Baclofen TAB* 10 MG PO SCH ×2 (08:38→21:08)
[2018-02-05] MEDS: Torsemide TAB* 20 MG PO SCH (08:38)
[2018-02-05] MEDS: Docusate CAP* 100 MG PO SCH ×2 (08:39→21:08)
[2018-02-05] MEDS: Allopurinol TAB* 100 MG PO SCH ×2 (08:39→21:11)
[2018-02-05] MEDS: DULoxetine DR CAP* 30 MG CAP.DR PO SCH (08:39)
[2018-02-05] MEDS: Gabapentin CAP(*) 100 MG PO SCH ×3 (08:39→21:08)
[2018-02-05] MEDS: Carbidopa/Levodop 25/100 MG TAB(*) PO SCH ×3 (08:39→21:06)
[2018-02-05] MEDS: Metoprolol Succinate XL TAB* 50 MG PO SCH (08:39)
[2018-02-05] MEDS: CMCS - Dabigatran CAP(NF) 150 MG CAP PO SCH ×2 (08:39→21:08)
[2018-02-05] MEDS: Timolol 0.5% OPTH.SOL* BTL RIGHT EYE SCH (08:43)
[2018-02-05] MEDS: Lidocaine PATCH 5%* 1 PATCH TRANSDERM SCH (11:43)
--- NOTE | 2018-02-05 18:22 | PN ---
Progress Note Date of Service: 02/05/18 Note: JUJU MALDONADO was visited. Therapy notes read and reviewed. On Depakote ER with no further events. Did ok with therapy today. On Bactrim for UTI Current Medications: Active Medications Generic Name Dose Route Start Last Admin Trade Name Freq PRN Reason Stop Dose Admin Acetaminophen 650 mg 02/01/18 14:46 02/04/18 23:07 Tylenol Tab* PO 650 mg Q6H PRN Administration FEVER/HEADACHE Allopurinol 100 mg 02/01/18 21:00 02/05/18 08:39 Zyloprim Tab* PO 100 mg BID PUSHPA Administration Baclofen 5 mg 02/01/18 21:00 02/05/18 08:38 Lioresal Tab* PO 5 mg BID PUSHPA Administration Bisacodyl 10 mg 02/01/18 14:46 Dulcolax Supp* [place] DAILY PRN CONSTIPATION Carbidopa/Levodopa 1.5 tab 02/01/18 21:00 02/05/18 13:56 Sinemet 25/100 Tab(*) PO 1.5 tab TID PUSHPA Administration Dabigatran 150 mg 02/01/18 21:00 02/05/18 08:39 Pradaxa Cap(Nf) PO 150 mg BID PUSHPA Administration Divalproex Sodium 1,500 mg 02/04/18 21:00 02/04/18 20:23 Depakote Er Tab(*) PO 1,500 mg BEDTIME PUSHPA Administration Docusate Sodium 100 mg 02/01/18 21:00 02/05/18 08:39 Colace Cap* PO 100 mg BID PUSHPA Administration Duloxetine HCl 30 mg 02/02/18 09:00 02/05/18 08:39 Cymbalta Cap* PO 30 mg DAILY PUSHPA Administration Gabapentin 200 mg 02/01/18 21:00 02/05/18 13:56 Neurontin Cap(*) PO 200 mg TID PUSHPA Administration Lidocaine 1 patch 02/02/18 09:00 02/05/18 11:43 Lidoderm 5% Patch* TRANSDERM 1 patch DAILY PUSHPA Administration Magnesium Hydroxide 30 ml 02/01/18 14:46 Milk Of Magnesia Liq* PO Q6H PRN CONSTIPATION Metoprolol Succinate 50 mg 02/02/18 09:00 02/05/18 08:39 Toprol Xl Tab* PO 50 mg DAILY PUSHPA Administration Pharmacy Profile Note 1 note 02/01/18 21:00 02/04/18 20:30 Lidocaine Patch Remove* N/A 1 note 2100 PUSHPA Administration Polyethylene Glycol/Electrolytes 17 gm 02/01/18 15:00 Miralax* PO DAILY PRN CONSTIPATION Potassium Chloride 10 meq 02/02/18 09:00 02/05/18 08:38 Klor Con Er Tab* PO 10 meq DAILY PUSHPA Administration Propafenone HCl 425 mg 02/01/18 21:00 02/05/18 08:38 Rythmol Er (Nf) PO 425 mg Q12HR PUSHPA Administration Senna 2 tab 02/01/18 14:46 02/03/18 20:55 Senokot Tab* PO 2 tab BEDTIME PRN Administration CONSTIPATION Tamsulosin HCl 0.4 mg 02/01/18 21:00 02/04/18 20:24 Flomax Cap* PO 0.4 mg BEDTIME PUSHPA Administration Timolol Maleate 1 drop 02/02/18 09:00 02/05/18 08:43 Timoptic 0.5% Opth* RIGHT EYE 1 drop DAILY PSUHPA Administration Torsemide 20 mg 02/02/18 09:00 02/05/18 08:38 Demadex* PO 20 mg DAILY PUSHPA Administration Trimethoprim/Sulfamethoxazole 1 tab 02/02/18 21:00 02/05/18 08:38 Bactrim Ds 800/160 Tab* PO 02/07/18 23:59 1 tab BID PUSHPA Administration Vital Signs: Vital Signs Temp Pulse Resp BP Pulse Ox 98.5 F 66 20 109/50 99 02/05/18 16:25 02/05/18 16:25 02/05/18 18:00 02/05/18 16:25 02/05/18 17:43 Exam: GENERAL: In good spirits, answers questions LUNGS: Clear bilaterally HEART: reg rhythm ABDOMEN: Soft +BS EXTREMITIES: Slightly increased tone NEUROLOGIC: alert oriented to self. Muscle strength 4+/5 Assessment/Plan: 1. Parkinson's Disease: PT/OT. Sinemet TID 2. Confusion: Treat UTI and seizures 3. UTI: Cx: 25-50K Proteus. Sensitive to Bactrim. Bactrim day #4/5. 4. Back Pain: Prednisone finished. Gabapentin, low dose 5. Paroxysmal A fib: Pradaxa/Toprol/Rythmol 6. Urinary Hesitancy: Flomax 7. DVT prophylaxis: Pradaxa 8. Advanced Directives: DNR. Has MOLST 9. Seizure Disorder: Depakote ER 1500 mg at HS 02/05/18 18:24
[2018-02-05] MEDS: Tamsulosin CAP* 0.4 MG PO SCH (21:06)
[2018-02-05] MEDS: Divalproex ER TAB(*) 500 MG PO SCH (21:12)
[2018-02-05] MEDS: Lidocaine Patch REMOVE* 1 NOTE MISC SCH (21:18)
[2018-02-06] MEDS: CMCS - Dabigatran CAP(NF) 150 MG CAP PO SCH ×2 (09:26→20:58)
[2018-02-06] MEDS: DULoxetine DR CAP* 30 MG CAP.DR PO SCH (09:26)
[2018-02-06] MEDS: Torsemide TAB* 20 MG PO SCH (09:26)
[2018-02-06] MEDS: Allopurinol TAB* 100 MG PO SCH ×2 (09:26→20:59)
[2018-02-06] MEDS: PROPAFENONE 425 MG PO SCH ×2 (09:26→21:03)
[2018-02-06] MEDS: Baclofen TAB* 10 MG PO SCH ×2 (09:26→20:56)
[2018-02-06] MEDS: Sulfamethox/Trimethoprim DS 800/160* TAB PO SCH ×2 (09:27→20:58)
[2018-02-06] MEDS: Metoprolol Succinate XL TAB* 50 MG PO SCH (09:27)
[2018-02-06] MEDS: Gabapentin CAP(*) 100 MG PO SCH ×3 (09:27→20:54)
[2018-02-06] MEDS: Docusate CAP* 100 MG PO SCH ×2 (09:27→20:55)
[2018-02-06] MEDS: Carbidopa/Levodop 25/100 MG TAB(*) PO SCH ×3 (09:27→20:59)
[2018-02-06] MEDS: Potassium Chlor TAB* 10 MEQ TAB.ER PO SCH (09:27)
[2018-02-06] MEDS: Timolol 0.5% OPTH.SOL* BTL RIGHT EYE SCH (09:35)
[2018-02-06] MEDS: Lidocaine PATCH 5%* 1 PATCH TRANSDERM SCH (09:35)
--- NOTE | 2018-02-06 12:19 | PN ---
Progress Note Date of Service: 02/06/18 Note: JUJU Cooper JOEL was visited. Nursing and therapy notes read and reviewed. No chest pain, shortness of breath or abdominal pain. We discussed his history of "dizziness." This has been going on for months intermittently when he is up walking and is no worse here than it was at home. When it occurs he stops what he is doing and finds a place to sit and rest. He feels better after 20-30 minutes. No vertigo. It is more of a light-headed sensation. Current Medications: Active Medications Generic Name Dose Route Start Last Admin Trade Name Freq PRN Reason Stop Dose Admin Acetaminophen 650 mg 02/01/18 14:46 02/04/18 23:07 Tylenol Tab* PO 650 mg Q6H PRN Administration FEVER/HEADACHE Allopurinol 100 mg 02/01/18 21:00 02/06/18 09:26 Zyloprim Tab* PO 100 mg BID PUSHPA Administration Baclofen 5 mg 02/01/18 21:00 02/06/18 09:26 Lioresal Tab* PO 5 mg BID PUSHPA Administration Bisacodyl 10 mg 02/01/18 14:46 Dulcolax Supp* [place] DAILY PRN CONSTIPATION Carbidopa/Levodopa 1.5 tab 02/01/18 21:00 02/06/18 09:27 Sinemet 25/100 Tab(*) PO 1.5 tab TID PUSHPA Administration Dabigatran 150 mg 02/01/18 21:00 02/06/18 09:26 Pradaxa Cap(Nf) PO 150 mg BID PUSHPA Administration Divalproex Sodium 1,500 mg 02/04/18 21:00 02/05/18 21:12 Depakote Er Tab(*) PO 1,500 mg BEDTIME PUSHPA Administration Docusate Sodium 100 mg 02/01/18 21:00 02/06/18 09:27 Colace Cap* PO 100 mg BID PUSHPA Administration Duloxetine HCl 30 mg 02/02/18 09:00 02/06/18 09:26 Cymbalta Cap* PO 30 mg DAILY PUSHPA Administration Gabapentin 200 mg 02/01/18 21:00 02/06/18 09:27 Neurontin Cap(*) PO 200 mg TID PUSHPA Administration Lidocaine 1 patch 02/02/18 09:00 02/06/18 09:35 Lidoderm 5% Patch* TRANSDERM 1 patch DAILY PUSHPA Administration Magnesium Hydroxide 30 ml 02/01/18 14:46 Milk Of Magnesia Liq* PO Q6H PRN CONSTIPATION Metoprolol Succinate 50 mg 02/02/18 09:00 02/06/18 09:27 Toprol Xl Tab* PO 50 mg DAILY PUSHPA Administration Pharmacy Profile Note 1 note 02/01/18 21:00 02/05/18 21:18 Lidocaine Patch Remove* N/A 1 note 2100 PUSHPA Administration Polyethylene Glycol/Electrolytes 17 gm 02/01/18 15:00 Miralax* PO DAILY PRN CONSTIPATION Potassium Chloride 10 meq 02/02/18 09:00 02/06/18 09:27 Klor Con Er Tab* PO 10 meq DAILY PUSHPA Administration Propafenone HCl 425 mg 02/01/18 21:00 02/06/18 09:26 Rythmol Er (Nf) PO 425 mg Q12HR PUSHPA Administration Senna 2 tab 02/01/18 14:46 02/03/18 20:55 Senokot Tab* PO 2 tab BEDTIME PRN Administration CONSTIPATION Tamsulosin HCl 0.4 mg 02/01/18 21:00 02/05/18 21:06 Flomax Cap* PO 0.4 mg BEDTIME PUSHPA Administration Timolol Maleate 1 drop 02/02/18 09:00 02/06/18 09:35 Timoptic 0.5% Opth* RIGHT EYE 1 drop DAILY PUSHPA Administration Torsemide 20 mg 02/02/18 09:00 02/06/18 09:26 Demadex* PO 20 mg DAILY PUSHPA Administration Trimethoprim/Sulfamethoxazole 1 tab 02/02/18 21:00 02/06/18 09:27 Bactrim Ds 800/160 Tab* PO 02/07/18 23:59 1 tab BID PUSHPA Administration Vital Signs: Vital Signs Temp Pulse Resp BP Pulse Ox 98.3 F 65 16 111/50 97 02/06/18 05:10 02/06/18 05:10 02/06/18 09:27 02/06/18 05:10 02/06/18 05:10 Exam: GENERAL: No acute distress. Alert and appropriate. LUNGS: Clear to auscultation bilaterally HEART: regular rate and rhythm ABDOMEN: Soft, +BS, non-tender, non-distended EXTREMITIES: No edema NEUROLOGIC: Muscle strength 4+/5 BUE/BLE with normal sensation. Assessment/Plan: 1. Parkinson's Disease: PT/OT. Sinemet TID 2. Confusion: Treat UTI and seizures 3. UTI: Cx: 25-50K Proteus. Sensitive to Bactrim. Bactrim day #11/08. 4. Back Pain: Prednisone finished. Gabapentin, low dose 5. Paroxysmal A fib: Pradaxa/Toprol/Rythmol 6. Urinary Hesitancy: Flomax 7. DVT prophylaxis: Pradaxa 8. Advanced Directives: DNR. Has MOLST 9. Seizure Disorder: Depakote ER 1500 mg at HS 10. Dizziness: This is a chronic issue. 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 I discussed importance of recognizing his dizziness and finding a place to sit. At home he will have a new apartment and thinks this will be a good place. 02/06/18 12:20
[2018-02-06] MEDS: Tamsulosin CAP* 0.4 MG PO SCH (20:55)
[2018-02-06] MEDS: Divalproex ER TAB(*) 500 MG PO SCH (20:56)
[2018-02-06] MEDS: Lidocaine Patch REMOVE* 1 NOTE MISC SCH (21:06)
[2018-02-07] MEDS: PROPAFENONE 425 MG PO SCH ×2 (09:01→21:54)
[2018-02-07] MEDS: Carbidopa/Levodop 25/100 MG TAB(*) PO SCH ×3 (09:01→21:56)
[2018-02-07] MEDS: Docusate CAP* 100 MG PO SCH ×2 (09:02→21:59)
[2018-02-07] MEDS: Torsemide TAB* 20 MG PO SCH (09:02)
[2018-02-07] MEDS: DULoxetine DR CAP* 30 MG CAP.DR PO SCH (09:02)
[2018-02-07] MEDS: Gabapentin CAP(*) 100 MG PO SCH ×3 (09:02→21:58)
[2018-02-07] MEDS: Allopurinol TAB* 100 MG PO SCH ×2 (09:03→21:59)
[2018-02-07] MEDS: Potassium Chlor TAB* 10 MEQ TAB.ER PO SCH (09:03)
[2018-02-07] MEDS: Baclofen TAB* 10 MG PO SCH ×2 (09:03→21:55)
[2018-02-07] MEDS: Metoprolol Succinate XL TAB* 50 MG PO SCH (09:04)
[2018-02-07] MEDS: Sulfamethox/Trimethoprim DS 800/160* TAB PO SCH ×2 (09:04→21:58)
[2018-02-07] MEDS: Timolol 0.5% OPTH.SOL* BTL RIGHT EYE SCH (09:06)
[2018-02-07] MEDS: CMCS - Dabigatran CAP(NF) 150 MG CAP PO SCH ×2 (09:06→21:56)
[2018-02-07] MEDS: Lidocaine PATCH 5%* 1 PATCH TRANSDERM SCH (10:50)
--- NOTE | 2018-02-07 13:04 | PN ---
Progress Note Date of Service: 02/07/18 Note: JUJU SALGADOCHER was visited. Nursing and therapy notes read and reviewed. Therapists report 2-3 staring episodes daily in therapy when he is standing. He is less responsive. Pt reports he is aware of these events which are the same as what was happening at home. He recognizes these as precursors to getting a seizure, but it has been over a year since he has had a seizure. At home he sits when this occurs. No chest pain, shortness of breath or abdominal pain. Current Medications: Active Medications Generic Name Dose Route Start Last Admin Trade Name Freq PRN Reason Stop Dose Admin Acetaminophen 650 mg 02/01/18 14:46 02/04/18 23:07 Tylenol Tab* PO 650 mg Q6H PRN Administration FEVER/HEADACHE Allopurinol 100 mg 02/01/18 21:00 02/07/18 09:03 Zyloprim Tab* PO 100 mg BID PUSHPA Administration Baclofen 5 mg 02/01/18 21:00 02/07/18 09:03 Lioresal Tab* PO 5 mg BID PUSHPA Administration Bisacodyl 10 mg 02/01/18 14:46 Dulcolax Supp* [place] DAILY PRN CONSTIPATION Carbidopa/Levodopa 1.5 tab 02/01/18 21:00 02/07/18 09:01 Sinemet 25/100 Tab(*) PO 1.5 tab TID PUSHPA Administration Dabigatran 150 mg 02/01/18 21:00 02/07/18 09:06 Pradaxa Cap(Nf) PO 150 mg BID PUSHPA Administration Divalproex Sodium 1,500 mg 02/04/18 21:00 02/06/18 20:56 Depakote Er Tab(*) PO 1,500 mg BEDTIME PUSHPA Administration Docusate Sodium 100 mg 02/01/18 21:00 02/07/18 09:02 Colace Cap* PO 100 mg BID PUSHPA Administration Duloxetine HCl 30 mg 02/02/18 09:00 02/07/18 09:02 Cymbalta Cap* PO 30 mg DAILY PUSHPA Administration Gabapentin 200 mg 02/01/18 21:00 02/07/18 09:02 Neurontin Cap(*) PO 200 mg TID PUSHPA Administration Lidocaine 1 patch 02/02/18 09:00 02/07/18 10:50 Lidoderm 5% Patch* TRANSDERM 1 patch DAILY PUSHPA Administration Magnesium Hydroxide 30 ml 02/01/18 14:46 Milk Of Magnesia Liq* PO Q6H PRN CONSTIPATION Metoprolol Succinate 50 mg 02/02/18 09:00 02/07/18 09:04 Toprol Xl Tab* PO 50 mg DAILY PUSHPA Administration Pharmacy Profile Note 1 note 02/01/18 21:00 02/06/18 21:06 Lidocaine Patch Remove* N/A 1 note 2100 PUSHPA Administration Polyethylene Glycol/Electrolytes 17 gm 02/01/18 15:00 Miralax* PO DAILY PRN CONSTIPATION Potassium Chloride 10 meq 02/02/18 09:00 02/07/18 09:03 Klor Con Er Tab* PO 10 meq DAILY PUSHPA Administration Propafenone HCl 425 mg 02/01/18 21:00 02/07/18 09:01 Rythmol Er (Nf) PO 425 mg Q12HR PUSHPA Administration Senna 2 tab 02/01/18 14:46 02/03/18 20:55 Senokot Tab* PO 2 tab BEDTIME PRN Administration CONSTIPATION Tamsulosin HCl 0.4 mg 02/01/18 21:00 02/06/18 20:55 Flomax Cap* PO 0.4 mg BEDTIME PUSHPA Administration Timolol Maleate 1 drop 02/02/18 09:00 02/07/18 09:06 Timoptic 0.5% Opth* RIGHT EYE 1 drop DAILY PUSHPA Administration Torsemide 20 mg 02/02/18 09:00 02/07/18 09:02 Demadex* PO 20 mg DAILY PUSHPA Administration Trimethoprim/Sulfamethoxazole 1 tab 02/02/18 21:00 02/07/18 09:04 Bactrim Ds 800/160 Tab* PO 02/07/18 23:59 1 tab BID PUSHPA Administration Vital Signs: Vital Signs Temp Pulse Resp BP Pulse Ox 97.9 F 63 18 116/50 97 02/07/18 05:32 02/07/18 05:32 02/07/18 11:21 02/07/18 05:32 02/07/18 08:00 Exam: GENERAL: No acute distress. Alert and appropriate. LUNGS: Clear to auscultation bilaterally HEART: regular rate and rhythm ABDOMEN: Soft, +BS, non-tender, non-distended EXTREMITIES: No edema NEUROLOGIC: Muscle strength 4+/5 BUE/BLE with normal sensation. Assessment/Plan: 1. Parkinson's Disease: PT/OT. Sinemet TID 2. Seizure Disorder: I d/w with neurologist transverse abdominal muscle surgeon. I ordered valproic acid level. If normal, will order EEG for Friday. If low, consider need to reload. For now, continue Depakote ER 1500 mg at HS 3. UTI: Cx: 25-50K Proteus sensitive to Bactrim. Bactrim ends today. 4. Back Pain: Prednisone finished. Gabapentin, low dose 5. Paroxysmal A fib: Pradaxa/Toprol/Rythmol 6. Urinary Hesitancy: Flomax 7. DVT prophylaxis: Pradaxa 8. Advanced Directives: DNR. Has MOLST 02/07/18 13:02
[2018-02-07] MEDS: Divalproex ER TAB(*) 500 MG PO SCH (21:53)
[2018-02-07] MEDS: Tamsulosin CAP* 0.4 MG PO SCH (21:54)
[2018-02-07] MEDS: Lidocaine Patch REMOVE* 1 NOTE MISC SCH (22:01)
[2018-02-08] MEDS: Carbidopa/Levodop 25/100 MG TAB(*) PO SCH ×3 (09:37→20:22)
[2018-02-08] MEDS: CMCS - Dabigatran CAP(NF) 150 MG CAP PO SCH ×2 (09:38→20:24)
[2018-02-08] MEDS: Potassium Chlor TAB* 10 MEQ TAB.ER PO SCH (09:38)
[2018-02-08] MEDS: Gabapentin CAP(*) 100 MG PO SCH ×3 (09:38→20:25)
[2018-02-08] MEDS: Allopurinol TAB* 100 MG PO SCH ×2 (09:38→20:25)
[2018-02-08] MEDS: Docusate CAP* 100 MG PO SCH ×2 (09:38→20:24)
[2018-02-08] MEDS: Baclofen TAB* 10 MG PO SCH ×2 (09:38→20:21)
[2018-02-08] MEDS: Metoprolol Succinate XL TAB* 50 MG PO SCH (09:39)
[2018-02-08] MEDS: Torsemide TAB* 20 MG PO SCH (09:39)
[2018-02-08] MEDS: DULoxetine DR CAP* 30 MG CAP.DR PO SCH (09:39)
[2018-02-08] MEDS: PROPAFENONE 425 MG PO SCH ×2 (09:40→20:25)
[2018-02-08] MEDS: Timolol 0.5% OPTH.SOL* BTL RIGHT EYE SCH (09:47)
[2018-02-08] MEDS: Lidocaine PATCH 5%* 1 PATCH TRANSDERM SCH (11:21)
--- NOTE | 2018-02-08 11:22 | PN ---
Progress Note Date of Service: 02/08/18 Note: JUJU Cooper JOEL was visited. Nursing notes read and reviewed. Pt denies any aura episodes yesterday, as does nursing, but not up as much as during the week with therapies. No chest pain, shortness of breath or abdominal pain. Current Medications: Active Medications Generic Name Dose Route Start Last Admin Trade Name Freq PRN Reason Stop Dose Admin Acetaminophen 650 mg 02/01/18 14:46 02/04/18 23:07 Tylenol Tab* PO 650 mg Q6H PRN Administration FEVER/HEADACHE Allopurinol 100 mg 02/01/18 21:00 02/08/18 09:38 Zyloprim Tab* PO 100 mg BID PUSHPA Administration Baclofen 5 mg 02/01/18 21:00 02/08/18 09:38 Lioresal Tab* PO 5 mg BID PUSHPA Administration Bisacodyl 10 mg 02/01/18 14:46 Dulcolax Supp* [place] DAILY PRN CONSTIPATION Carbidopa/Levodopa 1.5 tab 02/01/18 21:00 02/08/18 09:37 Sinemet 25/100 Tab(*) PO 1.5 tab TID PUSHPA Administration Dabigatran 150 mg 02/01/18 21:00 02/08/18 09:38 Pradaxa Cap(Nf) PO 150 mg BID PUSHPA Administration Divalproex Sodium 1,500 mg 02/04/18 21:00 02/07/18 21:53 Depakote Er Tab(*) PO 1,500 mg BEDTIME PUSHPA Administration Docusate Sodium 100 mg 02/01/18 21:00 02/08/18 09:38 Colace Cap* PO 100 mg BID PUSHPA Administration Duloxetine HCl 30 mg 02/02/18 09:00 02/08/18 09:39 Cymbalta Cap* PO 30 mg DAILY PUSHPA Administration Gabapentin 200 mg 02/01/18 21:00 02/08/18 09:38 Neurontin Cap(*) PO 200 mg TID PUSHPA Administration Lidocaine 1 patch 02/02/18 09:00 02/07/18 10:50 Lidoderm 5% Patch* TRANSDERM 1 patch DAILY PUSHPA Administration Magnesium Hydroxide 30 ml 02/01/18 14:46 Milk Of Magnesia Liq* PO Q6H PRN CONSTIPATION Metoprolol Succinate 50 mg 02/02/18 09:00 02/08/18 09:39 Toprol Xl Tab* PO 50 mg DAILY PUSHPA Administration Pharmacy Profile Note 1 note 02/01/18 21:00 02/07/18 22:01 Lidocaine Patch Remove* N/A 1 note 2100 PUSHPA Administration Polyethylene Glycol/Electrolytes 17 gm 02/01/18 15:00 Miralax* PO DAILY PRN CONSTIPATION Potassium Chloride 10 meq 02/02/18 09:00 02/08/18 09:38 Klor Con Er Tab* PO 10 meq DAILY PUSHPA Administration Propafenone HCl 425 mg 02/01/18 21:00 02/08/18 09:40 Rythmol Er (Nf) PO 425 mg Q12HR PUSHPA Administration Senna 2 tab 02/01/18 14:46 02/03/18 20:55 Senokot Tab* PO 2 tab BEDTIME PRN Administration CONSTIPATION Tamsulosin HCl 0.4 mg 02/01/18 21:00 02/07/18 21:54 Flomax Cap* PO 0.4 mg BEDTIME PUSHPA Administration Timolol Maleate 1 drop 02/02/18 09:00 02/08/18 09:47 Timoptic 0.5% Opth* RIGHT EYE 1 drop DAILY PUSHPA Administration Torsemide 20 mg 02/02/18 09:00 02/08/18 09:39 Demadex* PO 20 mg DAILY PUSHPA Administration Vital Signs: Vital Signs Temp Pulse Resp BP Pulse Ox 97.9 F 65 18 103/31 97 02/08/18 06:55 02/08/18 06:55 02/08/18 09:38 02/08/18 06:55 02/08/18 06:55 Orthostatics: Can't get standing since he puts significant weight through his arms. Lying 116/42, 65; Sitting 103/31, 65 Lab Results: Laboratory Results - last 24 hr 02/07/18 13:28 Valproic Acid 57.0 Exam: GENERAL: No acute distress. Alert and appropriate. LUNGS: Clear to auscultation bilaterally HEART: regular rate and rhythm ABDOMEN: Soft, +BS, non-tender, non-distended EXTREMITIES: No edema NEUROLOGIC: Muscle strength 4+/5 BUE/BLE with normal sensation. Assessment/Plan: 1. Parkinson's Disease: PT/OT. Sinemet TID 2. 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 Valproic acid level is in normal range. EEG on Friday. Continue Depakote ER 1500 mg at HS. I updated daughter here visiting on 02/07. 3. UTI: Proteus sensitive to Bactrim. s/p 5 days bactrim. 4. Back Pain: Prednisone finished. Gabapentin, low dose 5. Paroxysmal A fib: Pradaxa/Toprol/Rythmol 6. Urinary Hesitancy: Flomax 7. DVT prophylaxis: Pradaxa 8. Advanced Directives: DNR. Has MOLST 02/08/18 11:18
[2018-02-08] MEDS: Tamsulosin CAP* 0.4 MG PO SCH (20:21)
[2018-02-08] MEDS: Divalproex ER TAB(*) 500 MG PO SCH (20:27)
[2018-02-08] MEDS: Lidocaine Patch REMOVE* 1 NOTE MISC SCH (20:39)
[2018-02-09] MEDS: Acetaminophen TAB* 325 MG PO PRN ×3 (00:28→13:28)
[2018-02-09 05:14] LABS: ABS Basophils 0.1 10^3/ul (0-0.2); ABS Eosinophils 0.4 10^3/ul (0-0.6); ABS Lymphocytes 2.8 10^3/ul (1.0-4.8); ABS Monocytes 0.7 10^3/ul (0-0.8); ABS Neutrophils 6.5 10^3/ul (1.5-7.7); ABS Nucleated RBC 0 10^3/ul; Eosinophil % 3.5 % (0-6); Hematocrit 32 % (42-52); Hemoglobin 10.9 g/dl (14.0-18.0); Lymphocyte % 27.2 % (25-47); Mean Corpuscular HGB Conc 34 g/dl (31-36); Mean Corpuscular Hemoglobin 33 pg (27-31); Mean Corpuscular Volume 98 fL (80-94); Mean Platelet Volume 7.4 um3 (7.4-10.4); Nucleated Red Blood Cells % 0; Platelet Count 253 10^3/ul (150-450); Red Blood Count 3.28 10^6/ul (4.00-5.40); Red Cell Distribution Width 16 % (10.5-15); White Blood Count 10.5 10^3/ul (3.5-10.8)
[2018-02-09] MEDS: Carbidopa/Levodop 25/100 MG TAB(*) PO SCH ×3 (08:04→20:35)
[2018-02-09] MEDS: Baclofen TAB* 10 MG PO SCH ×2 (08:04→20:37)
[2018-02-09] MEDS: Potassium Chlor TAB* 10 MEQ TAB.ER PO SCH (08:05)
[2018-02-09] MEDS: Docusate CAP* 100 MG PO SCH ×2 (08:05→20:36)
[2018-02-09] MEDS: Torsemide TAB* 20 MG PO SCH (08:05)
[2018-02-09] MEDS: PROPAFENONE 425 MG PO SCH ×2 (08:05→20:38)
[2018-02-09] MEDS: Allopurinol TAB* 100 MG PO SCH ×2 (08:06→20:35)
[2018-02-09] MEDS: Metoprolol Succinate XL TAB* 50 MG PO SCH (08:06)
[2018-02-09] MEDS: DULoxetine DR CAP* 30 MG CAP.DR PO SCH (08:06)
[2018-02-09] MEDS: Gabapentin CAP(*) 100 MG PO SCH ×3 (08:07→20:36)
[2018-02-09] MEDS: CMCS - Dabigatran CAP(NF) 150 MG CAP PO SCH ×2 (08:08→20:34)
[2018-02-09] MEDS: Lidocaine PATCH 5%* 1 PATCH TRANSDERM SCH (08:09)
[2018-02-09] MEDS: Timolol 0.5% OPTH.SOL* BTL RIGHT EYE SCH (08:09)
--- NOTE | 2018-02-09 17:58 | PN ---
Progress Note Date of Service: 02/09/18 Note: JUJU Cooper JOEL was visited. Therapy notes read and reviewed. A bit of concern about his returning home. However, his skilled benefit may be used up. Will need to discuss with family Current Medications: Active Medications Generic Name Dose Route Start Last Admin Trade Name Freq PRN Reason Stop Dose Admin Acetaminophen 650 mg 02/01/18 14:46 02/09/18 13:28 Tylenol Tab* PO 650 mg Q6H PRN Administration FEVER/HEADACHE Allopurinol 100 mg 02/01/18 21:00 02/09/18 08:06 Zyloprim Tab* PO 100 mg BID PUSHPA Administration Baclofen 5 mg 02/01/18 21:00 02/09/18 08:04 Lioresal Tab* PO 5 mg BID PUSHPA Administration Bisacodyl 10 mg 02/01/18 14:46 Dulcolax Supp* [place] DAILY PRN CONSTIPATION Carbidopa/Levodopa 1.5 tab 02/01/18 21:00 02/09/18 13:28 Sinemet 25/100 Tab(*) PO 1.5 tab TID PUSHPA Administration Dabigatran 150 mg 02/01/18 21:00 02/09/18 08:08 Pradaxa Cap(Nf) PO 150 mg BID PUSHPA Administration Divalproex Sodium 1,500 mg 02/04/18 21:00 02/08/18 20:27 Depakote Er Tab(*) PO 1,500 mg BEDTIME PUSHPA Administration Docusate Sodium 100 mg 02/01/18 21:00 02/09/18 08:05 Colace Cap* PO 100 mg BID PUSHPA Administration Duloxetine HCl 30 mg 02/02/18 09:00 02/09/18 08:06 Cymbalta Cap* PO 30 mg DAILY PUSHPA Administration Gabapentin 200 mg 02/01/18 21:00 02/09/18 13:28 Neurontin Cap(*) PO 200 mg TID PUSHPA Administration Lidocaine 1 patch 02/02/18 09:00 02/09/18 08:09 Lidoderm 5% Patch* TRANSDERM 1 patch DAILY PUSHPA Administration Magnesium Hydroxide 30 ml 02/01/18 14:46 Milk Of Magnesia Liq* PO Q6H PRN CONSTIPATION Metoprolol Succinate 50 mg 02/02/18 09:00 02/09/18 08:06 Toprol Xl Tab* PO 50 mg DAILY PUSHPA Administration Pharmacy Profile Note 1 note 02/01/18 21:00 02/08/18 20:39 Lidocaine Patch Remove* N/A 1 note 2100 PUSHPA Administration Polyethylene Glycol/Electrolytes 17 gm 02/01/18 15:00 02/09/18 11:36 Miralax* PO 17 gm DAILY PRN Administration CONSTIPATION Potassium Chloride 10 meq 02/02/18 09:00 02/09/18 08:05 Klor Con Er Tab* PO 10 meq DAILY PUSHPA Administration Propafenone HCl 425 mg 02/01/18 21:00 02/09/18 08:05 Rythmol Er (Nf) PO 425 mg Q12HR PUSHPA Administration Senna 2 tab 02/01/18 14:46 02/03/18 20:55 Senokot Tab* PO 2 tab BEDTIME PRN Administration CONSTIPATION Tamsulosin HCl 0.4 mg 02/01/18 21:00 02/08/18 20:21 Flomax Cap* PO 0.4 mg BEDTIME PUSHPA Administration Timolol Maleate 1 drop 02/02/18 09:00 02/09/18 08:09 Timoptic 0.5% Opth* RIGHT EYE 1 drop DAILY PUSHPA Administration Torsemide 20 mg 02/02/18 09:00 02/09/18 08:05 Demadex* PO 20 mg DAILY PUSHPA Administration Vital Signs: Vital Signs Temp Pulse Resp BP Pulse Ox 98.4 F 65 22 109/51 98 02/09/18 16:04 02/09/18 16:04 02/09/18 16:04 02/09/18 16:04 02/09/18 16:04 Lab Results: Laboratory Results - last 24 hr 02/09/18 02/09/18 04:52 04:52 WBC 10.5 RBC 3.28 L Hgb 10.9 L Hct 32 L MCV 98 H MCH 33 H MCHC 34 RDW 16 H Plt Count 253 MPV 7.4 Neut % (Auto) 61.8 Lymph % (Auto) 27.2 [place] % (Auto) 6.9 Eos % (Auto) 3.5 Baso % (Auto) 0.6 Absolute Neuts (auto) 6.5 Absolute Lymphs (auto) 2.8 Absolute Monos (auto) 0.7 Absolute Eos (auto) 0.4 Absolute Basos (auto) 0.1 Absolute Nucleated RBC 0 Nucleated RBC % 0 Sodium 138 Potassium 4.2 Chloride 102 Carbon Dioxide 31 Anion Gap 5 BUN 31 H Creatinine 1.19 H Est GFR ( Amer) 71.4 Est GFR (Non-Af Amer) 59.0 BUN/Creatinine Ratio 26.1 H Glucose 91 Calcium 8.9 Total Bilirubin 0.40 AST 12 L ALT 7 Alkaline Phosphatase 196 H Total Protein 5.7 L Albumin 3.1 L Globulin 2.6 Albumin/Globulin Ratio 1.2 Exam: GENERAL: No acute distress. Alert and appropriate. LUNGS: Clear to auscultation bilaterally HEART: regular rate and rhythm ABDOMEN: Soft, +BS, non-tender, non-distended EXTREMITIES: No edema NEUROLOGIC: Muscle strength 4+/5 BUE/BLE with normal sensation. Assessment/Plan: 1. Parkinson's Disease: PT/OT. Sinemet TID 2. Seizure Disorder: EEG today. Continue Depakote ER 1500 mg at HS. 3. Back Pain: Prednisone finished. Gabapentin, low dose 4. Paroxysmal A fib: Pradaxa/Toprol/Rythmol 5. Urinary Hesitancy: Flomax 6. DVT prophylaxis: Pradaxa 7. Advanced Directives: DNR. Has MOLST 02/09/18 17:59
[2018-02-09] MEDS: Divalproex ER TAB(*) 500 MG PO SCH (20:37)
[2018-02-09] MEDS: Tamsulosin CAP* 0.4 MG PO SCH (20:37)
[2018-02-09] MEDS: Lidocaine Patch REMOVE* 1 NOTE MISC SCH (20:43)
--- NOTE | 2018-02-10 00:40 | EEG ---
ELECTROENCEPHALOGRAPHY: DATE OF STUDY: 02/09/18 - ROOM #[id number] DATE READ: 02/09/18 DURATION OF STUDY: 10:14 AM - 11:01 AM ORDERING PROVIDER: Irlanda Philip MD MEDICATIONS: Neurontin, Cymbalta, Colace, Dabigatran, Sinemet, Lioresal, Zyloprim CLINICAL PROBLEM: The patient is a 78-year-old male with history of intermittent dizziness and past medical history of epilepsy. This EEG was ordered to evaluate for epileptiform abnormalities. CLINICAL STATUS: Awake and drowsy. REPORT: The background consisted of a mixed frequency slowing the delta and theta range with appropriate organization and clearly defined anterior- posterior voltage. There was awake and slow background rhythm of 7 Hz, which was symmetrical and showed normal reactivity. There were intermittent, rare, low-amplitude, polymorphic, but predominantly delta slowing seen diffusely throughout the recording lasting 1 to 2 seconds. Attenuation of the occipital rhythm accompanied drowsiness. Hyperventilation photic stimulations were not performed. There were no electrographic seizures. CLINICAL IMPRESSION: This is an abnormal awake and drowsy EEG due to a slow posterior dominant rhythm and rare intermittent diffuse slowing. Otherwise, there is normal organization reactivity. These findings are suggestive of a mild nonspecific encephalopathy, which can be seen in the setting of toxic- metabolic disturbance, hypoxic-ischemic encephalopathy, or as a result of sedative use. Clinical correlation is recommended. [id number] #: [id number] MTDD
[2018-02-10] MEDS: PROPAFENONE 425 MG PO SCH ×2 (09:01→21:38)
[2018-02-10] MEDS: CMCS - Dabigatran CAP(NF) 150 MG CAP PO SCH ×2 (09:01→21:41)
[2018-02-10] MEDS: Carbidopa/Levodop 25/100 MG TAB(*) PO SCH ×3 (09:01→21:44)
[2018-02-10] MEDS: Baclofen TAB* 10 MG PO SCH ×2 (09:01→21:41)
[2018-02-10] MEDS: DULoxetine DR CAP* 30 MG CAP.DR PO SCH (09:02)
[2018-02-10] MEDS: Acetaminophen TAB* 325 MG PO PRN ×2 (09:03→14:11)
[2018-02-10] MEDS: Allopurinol TAB* 100 MG PO SCH ×2 (09:03→21:43)
[2018-02-10] MEDS: Gabapentin CAP(*) 100 MG PO SCH ×3 (09:04→21:39)
[2018-02-10] MEDS: Docusate CAP* 100 MG PO SCH ×2 (09:04→21:43)
[2018-02-10] MEDS: Torsemide TAB* 20 MG PO SCH (09:04)
[2018-02-10] MEDS: Potassium Chlor TAB* 10 MEQ TAB.ER PO SCH (09:05)
[2018-02-10] MEDS: Metoprolol Succinate XL TAB* 50 MG PO SCH (09:05)
[2018-02-10] MEDS: Timolol 0.5% OPTH.SOL* BTL RIGHT EYE SCH (09:06)
[2018-02-10] MEDS: Lidocaine PATCH 5%* 1 PATCH TRANSDERM SCH (09:38)
--- NOTE | 2018-02-10 12:49 | PMRUTEAM ---
PMRU: Team Meeting Current Status: Nursing: Current Status Skin Deviations [right thumb] Wound Skin Deviations [Right Elbow] Abrasion Skin Deviations [Left Lower Abrasion Leg] Skin Deviation Description [ improving right thumb] Skin Deviation Description [ no deviation noted Right Elbow] Skin Deviation Description [ scar Left Lower Leg] Bladder Current Status voids, incontinent Bowel Current Status bm 02/09 Nutrition Current Status appetite good Medication Current Status needs reinforcement Physical Therapy: Current Status Bed Mobility Assistance Supervision Transfer Moblility Assistance Supervision,Contact Guard Assist Transfer/Bed Mobility Rolling Walker Recommended Devices Ambulation Assistance Supervision,Contact Guard Assist Ambulation Assistive Devices Rolling Walker Number of Feet Patient 150' Ambulated Stairs Assistance Not Tested Stairs Recommended Devices Two Rails Number of Stairs 3 Occupational Therapy: Current Status Upper Body Dressing Supervision,Mod Assist Lower Body Dressing Min Assist,Mod Assist Bathing Min Assist,Mod Assist Toileting Contact Guard Assist,Min Assist Toilet Transfer Supervision,Contact Guard Assist Shower Transfer Supervision,Contact Guard Assist Eating Ind with Adaptive Equip Rec Therapy: Current Status Summary of Assessment and Pt. was open to conversation - engaged and Clinical Impression cooperative. Pt. identified with interests and active involvement in them prior to admission. Pt . was open to continued visits. Treatment Goals Pt. will engage in leisure activities while on the unit. Treatment Plan Provide RT services and encourage involvement. Social Work: Current Status Discharge Plan return home with home care svs and family support Potential for Family Training pt's family is involved and supportive Anticipated Discharge Home Destination Discharge With home care svs and family support Nutrition: Current Status Monitoring Adm for rehab r/t parkinsons disease, low back pain. Receiving regular diet/texture, and intake is good/meeting needs. No issues with constipation or skin breakdown. Slight hyperglycemia noted (118) but likely not significant. No specific further nutrition intervention anticipated. Speech: Current Status Assessment Patient is progressing as expected. Speech Current Status Goal 1 Moderate Impairment Goals: Physical Therapy: Initial Goals Bed Mobility Assistance Independent Transfer Mobility Assistance Independent Transfer/Bed Mobility Rolling Walker Recommended Devices Ambulation Independent Ambulation Recommended Devices Rolling Walker Ambulation Distance 150 Stairs Assistance Independent Stair Recommended Devices Two Rails Number of Stairs 5 Physical Therapy: Updated Goals Bed Mobility Assistance Independent Transfer Mobility Assistance Independent Transfer/Bed Mobility Rolling Walker Recommended Devices Ambulation Assistance Independent Ambulation Distance (ft) 150 Stairs Assistance Independent Stairs Recommended Devices Two Rails Number of Stairs 5 Occupational Therapy: Initial Goals Goals to be Completed in (Days 10-14 ) Upper Body Bathing Routine Supervision/Set Up Lower Body Bathing Routine Minimal Contact Assist Upper Body Dressing Routine Supervision/Set Up Lower Body Dressing Routine Minimal Contact Assist Toilet Hygeine and Clothing Modified Independent with Management Routine Toilet Transfer Routine Modified Independent with Step-In Shower Transfer Supervision/Set Up Routine Functional Transfers for ADL Modified Independent with Grooming Routine Modified Independent with Feeding Routine Modified Independent with Nursing: Goals Bladder Goal independent Bowel Goal independent Nutrition Goal 100% of all meals Medication Goal supervision Nutrition: Goals Intervention Goals 1. Adequate PO intake to maintain lean body mass and hydration w/o promoting undesired gain 2. Electrolytes will remain WNL w/ adequate PO intake 3. Intake will support skin integrity w/o pressure related breakdown 4. Achieve regularity of BM w/o constipation or diarrhea Speech: Goals Speech Goal 1 Problem Solving Speech Evaluation Status Goal Moderate Impairment 1 Speech Current Status Goal 1 Moderate Impairment Speech Discharge Status Goal 1 Mild Impairment Goal 1 Comments Problem Solving Long-Term Goal: Pt will use compensatory strategies to solve moderately complex routine problems, with 100% accuracy, Independently, for ADLs such as shopping, time and money management. Short-Term Goal: Pt will use compensatory strategies to solve moderately complex routine problems, with 80% accuracy, given Moderate skilled instruction and cueing. Status: Progressing as expected. LONG LINE TEAMSTER presented verbal and printed instruction in memory strategies to encode and retrieve items. Given 4 pictures for 15 seconds, patient kael'ly recalled 3/4 immediately. For each item, LONG LINE TEAMSTER instructed patient to attend to each by naming it, gesturing, describing, and relating a personal story. Patient consistently recalled each item up to 4/4 items immediately after attending to each, and continue dot recall 4/4 for delays up to 3 minutes. After 10 minute delay concentrating on another activity, patient recalled 2/4 i'ly, and 2 more given his gestural cue. LONG LINE TEAMSTER presented a short article fo patient to read, and patient summarized the action accurately without detiuals such as names. LONG LINE TEAMSTER directed patient to reread and select detail keywords, including 2 personal names, a place name and a distance number. After review of selected detials, patient recalled 2/4 new details I'ly, and required reminders to recall 2 more details. Speech Goal 2 Memory Speech Goal 2 Comments Memory Long-Term Goal: Pt will use compensatory strategies to encode and retrieve 5/5 new items after delay of 30 minutes, Independently, for independence in mobility safety, ADLs and community access. Short-term Goal: Pt will use compensatory strategies to encode and retrieve 3/4 new items after delay of 5 minutes, given Moderate skilled instruction and cueing. Social Work: Goals Discharge Plan return home with home care svs and family support Potential for Family Training pt's family is involved and supportive Anticipated Discharge Home Destination Discharge With home care svs and family support Care Plan: Care Plan ADL's - Improve/Maintain Start: 02/02/18 15:08 Freq: DAILY Status: Active Target: Protocol: Activity Type Activity Date Activity User E-Sign Co-Sign Detail Recorded Client Recorded Date Recorded By Document 02/05/18 14:40 [id number] [id number] 02/05/18 14:40 [id number] 02/05/18 14:40 PMRU Outcome: ADL's/ADL Transfers Orders/Interventions Occupational Therapy Evaluation & Treatment Device Yes Patient to receive OT 5x/wk for 60-120 Therex min/day Self Care Management Group Therapy Neuromuscular ReEducation UE/LE ADL's with Assist Yes ADL Transfers with Assist Yes Toileting: Transfers,Clothing Management Yes ,Hygeine w/Assist Light Kitchen/Laundry w/Assist Yes Progression Toward Outcome/Goals Progressing Outcome/Goals Met Pt no longer reports feeling nauseous or lightheaded during self- care routine. Pt needs verbal cueing for hip precautions. Pt able to don socks using sock aide, though afterward reported that he doesn't wear socks at home. Communication-Improve/Maintain Start: 02/03/18 17:53 Freq: DAILY Status: Active Target: Protocol: Activity Type Activity Date Activity User E-Sign Co-Sign Detail Recorded Client Recorded Date Recorded By Document 02/09/18 21:23 [id number] 02/09/18 21:24 [id number] 02/09/18 21:23 PMRU Outcome: Communication/Cognitive Status Other Outcomes/Goals Problem Solving Long-Term Goal: Pt will use compensatory strategies to solve moderately complex routine problems, with 100% accuracy, Independently, for ADLs such as shopping, time and money management. Short-Term Goal : Pt will use compensatory strategies to solve moderately complex routine problems, with 80% accuracy, given Moderate skilled instruction and cueing. Status: Progressing as expected. Memory Long-Term Goal: Pt will use compensatory strategies to encode and retrieve 5/5 new items after delay of 30 minutes, Independently, for independence in mobility safety, ADLs and community access. Short-term Goal : Pt will use compensatory strategies to encode and retrieve 3/4 new items after delay of 5 minutes, given Moderate skilled instruction and cueing. Status: Progressing as expected. Progression Toward Outcomes/Goals Progressing DVT Prophylaxis- Improve/Maintain Start: 02/01/18 19:29 Freq: QSHIFT Status: Active Target: Protocol: Activity Type Activity Date Activity User E-Sign Co-Sign Detail Recorded Client Recorded Date Recorded By Document 02/10/18 08:30 [id number] 02/10/18 10:49 [id number] 02/10/18 08:30 PMRU Outcome: DVT Prophylaxis Outcome/Goals Complies with DVT Prophylaxis /Treatment Demonstrates Knowledge of DVT Prevention/ Treatment TEDS Stockings on Every AM, Off at HS Progression Toward Outcome/Goals Progressing Discharge Planning - Improve/Maintain Start: 02/01/18 19:29 Freq: DAILY Status: Active Target: Protocol: Activity Type Activity Date Activity User E-Sign Co-Sign Detail Recorded Client Recorded Date Recorded By Document 02/09/18 21:23 [id number] 02/09/18 21:24 [id number] 02/09/18 21:23 PMRU Outcome: Discharge Planning Update Patient Family No Outcome/Goals Demonstrates Understanding of Discharge Plan Progression Toward Outcome/Goals Progressing Neurological- Improve/Maintain Start: 02/01/18 19:29 Freq: QSHIFT Status: Active Target: Protocol: Activity Type Activity Date Activity User E-Sign Co-Sign Detail Recorded Client Recorded Date Recorded By Document 02/10/18 08:30 [id number] 02/10/18 10:49 [id number] 02/10/18 08:30 PMRU Outcome: Neurological Weakness/Aphasia Weakness Outcome/Goals Improve Neurological Status Prevent Avoidable Neurological Decline Demonstrate Knowledge of Prevention/Tx of Neuro Disorders/ Complication Maintain/ Improve Strength/ROM Progression Toward Outcome/Goals Progressing Pain/Comfort- Improve/Maintain Start: 02/01/18 19:29 Freq: QSHIFT Status: Complete Target: Protocol: Activity Type Activity Date Activity User E-Sign Co-Sign Detail Recorded Client Recorded Date Recorded By Document 02/08/18 08:00 [id number] 02/08/18 15:49 [id number] 02/08/18 08:00 PMRU Outcome: Pain/Comfort Outcome/Goals Demonstrates Knowledge and Use of Available Comfort Measures Achieves Acceptable Comfort/Pain Level as Determined by Patient/Condit Outcome/Goals Met Demonstrates Knowledge and Use of Available Comfort Measures Achieves Acceptable Comfort/Pain Level as Determined by Patient/Condit Respiratory - Improve/Maintain Start: 02/01/18 19:29 Freq: QSHIFT Status: Active Target: Protocol: Activity Type Activity Date Activity User E-Sign Co-Sign Detail Recorded Client Recorded Date Recorded By Document 02/10/18 08:30 [id number] 02/10/18 10:54 [id number] 02/10/18 08:30 PMRU Outcome: Respiratory Does Patient Have a Trach No Outcome/Goals Maintain/ Improve Baseline Respiratory Status Prevent Pneumonia/ Atelectasis Progression Toward Outcome/Goals Progressing Outcome/Goals Met Comment 02 placed at HS Safety- Improve/Maintain Start: 02/01/18 19:29 Freq: QSHIFT Status: Active Target: Protocol: Activity Type Activity Date Activity User E-Sign Co-Sign Detail Recorded Client Recorded Date Recorded By Document 02/10/18 08:30 [id number] 02/10/18 10:54 [id number] 02/10/18 08:30 PMRU Outcome: Safety Outcome/Goals Remain Free of Injury or Harm Cooperates with Safety Measures for Least Restrictive Environment Prevent Falls/ Injury Progression Toward Outcome/Goals Progressing Medicine Note: Length of Stay: 3 days Anticipated Discharge Destination: Home Tentative Discharge Date: TBD Discharged to: [facility]
--- NOTE | 2018-02-10 17:23 | PN ---
Progress Note Date of Service: 02/10/18 Note: JUJU Cooper JOEL was visited. Therapy notes read and reviewed. He was discussed in interdisciplinary team rounds. Concerns about his returning home to his apartment, but he may not have benefit for skilled time. Trying to find that out Current Medications: Active Medications Generic Name Dose Route Start Last Admin Trade Name Freq PRN Reason Stop Dose Admin Acetaminophen 650 mg 02/01/18 14:46 02/10/18 14:11 Tylenol Tab* PO 650 mg Q6H PRN Administration FEVER/HEADACHE Allopurinol 100 mg 02/01/18 21:00 02/10/18 09:03 Zyloprim Tab* PO 100 mg BID PUSHPA Administration Baclofen 5 mg 02/01/18 21:00 02/10/18 09:01 Lioresal Tab* PO 5 mg BID PUSHPA Administration Bisacodyl 10 mg 02/01/18 14:46 Dulcolax Supp* [place] DAILY PRN CONSTIPATION Carbidopa/Levodopa 1.5 tab 02/01/18 21:00 02/10/18 14:12 Sinemet 25/100 Tab(*) PO 1.5 tab TID PUSHPA Administration Dabigatran 150 mg 02/01/18 21:00 02/10/18 09:01 Pradaxa Cap(Nf) PO 150 mg BID PUSHPA Administration Divalproex Sodium 1,500 mg 02/04/18 21:00 02/09/18 20:37 Depakote Er Tab(*) PO 1,500 mg BEDTIME PUSHPA Administration Docusate Sodium 100 mg 02/01/18 21:00 02/10/18 09:04 Colace Cap* PO 100 mg BID PUSHPA Administration Duloxetine HCl 30 mg 02/02/18 09:00 02/10/18 09:02 Cymbalta Cap* PO 30 mg DAILY PUSHPA Administration Gabapentin 200 mg 02/01/18 21:00 02/10/18 14:12 Neurontin Cap(*) PO 200 mg TID PUSHPA Administration Lidocaine 1 patch 02/02/18 09:00 02/10/18 09:38 Lidoderm 5% Patch* TRANSDERM 1 patch DAILY PUSHPA Administration Magnesium Hydroxide 30 ml 02/01/18 14:46 Milk Of Magnesia Liq* PO Q6H PRN CONSTIPATION Metoprolol Succinate 50 mg 02/02/18 09:00 02/10/18 09:05 Toprol Xl Tab* PO 50 mg DAILY PUSHPA Administration Pharmacy Profile Note 1 note 02/01/18 21:00 02/09/18 20:43 Lidocaine Patch Remove* N/A 1 note 2100 PUSHPA Administration Polyethylene Glycol/Electrolytes 17 gm 02/01/18 15:00 02/09/18 11:36 Miralax* PO 17 gm DAILY PRN Administration CONSTIPATION Potassium Chloride 10 meq 02/02/18 09:00 02/10/18 09:05 Klor Con Er Tab* PO 10 meq DAILY PUSHPA Administration Propafenone HCl 425 mg 02/01/18 21:00 02/10/18 09:01 Rythmol Er (Nf) PO 425 mg Q12HR PUSHPA Administration Senna 2 tab 02/01/18 14:46 02/03/18 20:55 Senokot Tab* PO 2 tab BEDTIME PRN Administration CONSTIPATION Tamsulosin HCl 0.4 mg 02/01/18 21:00 02/09/18 20:37 Flomax Cap* PO 0.4 mg BEDTIME PUSHPA Administration Timolol Maleate 1 drop 02/02/18 09:00 02/10/18 09:06 Timoptic 0.5% Opth* RIGHT EYE 1 drop DAILY PUSHPA Administration Torsemide 20 mg 02/02/18 09:00 02/10/18 09:04 Demadex* PO 20 mg DAILY PUSHPA Administration Vital Signs: Vital Signs Temp Pulse Resp BP Pulse Ox 98.2 F 65 16 118/32 99 02/10/18 16:19 02/10/18 16:19 02/10/18 17:03 02/10/18 16:19 02/10/18 16:19 Exam: GENERAL: No acute distress. Alert and appropriate. LUNGS: Clear to auscultation bilaterally HEART: regular rate and rhythm ABDOMEN: Soft, +BS, non-tender, non-distended EXTREMITIES: No edema NEUROLOGIC: Muscle strength 4+/5 BUE/BLE with normal sensation. Assessment/Plan: 1. Parkinson's Disease: PT/OT. Sinemet TID 2. Seizure Disorder: Continue Depakote ER 1500 mg at HS. EEG did not show epileptiform activity 3. Back Pain: Prednisone finished. Gabapentin, low dose 4. Paroxysmal A fib: Pradaxa/Toprol/Rythmol 5. Urinary Hesitancy: Flomax 6. DVT prophylaxis: Pradaxa 7. Advanced Directives: DNR. Has MOLST 02/10/18 17:23
[2018-02-10] MEDS: Divalproex ER TAB(*) 500 MG PO SCH (21:40)
[2018-02-10] MEDS: Tamsulosin CAP* 0.4 MG PO SCH (21:43)
[2018-02-10] MEDS: Lidocaine Patch REMOVE* 1 NOTE MISC SCH (21:48)
[2018-02-11] MEDS: Gabapentin CAP(*) 100 MG PO SCH ×3 (09:51→21:37)
[2018-02-11] MEDS: Allopurinol TAB* 100 MG PO SCH ×2 (09:52→21:38)
[2018-02-11] MEDS: Baclofen TAB* 10 MG PO SCH ×2 (09:52→21:40)
[2018-02-11] MEDS: Carbidopa/Levodop 25/100 MG TAB(*) PO SCH ×3 (09:53→21:40)
[2018-02-11] MEDS: CMCS - Dabigatran CAP(NF) 150 MG CAP PO SCH ×2 (09:54→21:38)
[2018-02-11] MEDS: PROPAFENONE 425 MG PO SCH ×2 (09:55→21:39)
[2018-02-11] MEDS: Potassium Chlor TAB* 10 MEQ TAB.ER PO SCH (09:55)
[2018-02-11] MEDS: Metoprolol Succinate XL TAB* 50 MG PO SCH (09:55)
[2018-02-11] MEDS: DULoxetine DR CAP* 30 MG CAP.DR PO SCH (09:55)
[2018-02-11] MEDS: Docusate CAP* 100 MG PO SCH ×2 (09:55→21:38)
[2018-02-11] MEDS: Torsemide TAB* 20 MG PO SCH (09:56)
[2018-02-11] MEDS: Timolol 0.5% OPTH.SOL* BTL RIGHT EYE SCH (09:56)
[2018-02-11] MEDS: Lidocaine PATCH 5%* 1 PATCH TRANSDERM SCH (09:56)
--- NOTE | 2018-02-11 18:39 | PN ---
Progress Note Date of Service: 02/11/18 Note: JUJU Cooper JOEL was visited. Therapy notes read and reviewed. I had a long meeting with his son who is not sure whether to take him home or go back to [facility]. He has exhausted his SNF benefit and so a three week stay at [facility] would cost $7K. There is no guarantee that he would be independent after three weeks. The son will let us know his decision tomorrow. He will want to see a therapy session if he decides to take him home. He is aware of the significant risk of falling if he elects to bring his father home. Much of what is being observed here (the patient abruptly trying to sit while walking) was happening before he came in. Current Medications: Active Medications Generic Name Dose Route Start Last Admin Trade Name Freq PRN Reason Stop Dose Admin Acetaminophen 650 mg 02/01/18 14:46 02/10/18 14:11 Tylenol Tab* PO 650 mg Q6H PRN Administration FEVER/HEADACHE Allopurinol 100 mg 02/01/18 21:00 02/11/18 09:52 Zyloprim Tab* PO 100 mg BID PUSHPA Administration Baclofen 5 mg 02/01/18 21:00 02/11/18 09:52 Lioresal Tab* PO 5 mg BID PUSHPA Administration Bisacodyl 10 mg 02/01/18 14:46 Dulcolax Supp* UT DAILY PRN CONSTIPATION Carbidopa/Levodopa 1.5 tab 02/01/18 21:00 02/11/18 14:48 Sinemet 25/100 Tab(*) PO 1.5 tab TID PUSHPA Administration Dabigatran 150 mg 02/01/18 21:00 02/11/18 09:54 Pradaxa Cap(Nf) PO 150 mg BID PUSHPA Administration Divalproex Sodium 1,500 mg 02/04/18 21:00 02/10/18 21:40 Depakote Er Tab(*) PO 1,500 mg BEDTIME PUSHPA Administration Docusate Sodium 100 mg 02/01/18 21:00 02/11/18 09:55 Colace Cap* PO 100 mg BID PUSHPA Administration Duloxetine HCl 30 mg 02/02/18 09:00 02/11/18 09:55 Cymbalta Cap* PO 30 mg DAILY PUSHPA Administration Gabapentin 200 mg 02/11/18 21:00 Neurontin Cap(*) PO BID PUSHPA Magnesium Hydroxide 30 ml 02/01/18 14:46 Milk Of Magnesia Liq* PO Q6H PRN CONSTIPATION Metoprolol Succinate 50 mg 02/02/18 09:00 02/11/18 09:55 Toprol Xl Tab* PO 50 mg DAILY PUSHPA Administration Pharmacy Profile Note 1 note 02/01/18 21:00 02/10/18 21:48 Lidocaine Patch Remove* N/A 1 note 2100 PUSHPA Administration Polyethylene Glycol/Electrolytes 17 gm 02/01/18 15:00 02/09/18 11:36 Miralax* PO 17 gm DAILY PRN Administration CONSTIPATION Potassium Chloride 10 meq 02/02/18 09:00 02/11/18 09:55 Klor Con Er Tab* PO 10 meq DAILY PUSHPA Administration Propafenone HCl 425 mg 02/01/18 21:00 02/11/18 09:55 Rythmol Er (Nf) PO 425 mg Q12HR PUSHPA Administration Senna 2 tab 02/01/18 14:46 02/03/18 20:55 Senokot Tab* PO 2 tab BEDTIME PRN Administration CONSTIPATION Tamsulosin HCl 0.4 mg 02/01/18 21:00 02/10/18 21:43 Flomax Cap* PO 0.4 mg BEDTIME PUSHPA Administration Timolol Maleate 1 drop 02/02/18 09:00 02/11/18 09:56 Timoptic 0.5% Opth* RIGHT EYE 1 drop DAILY PUSHPA Administration Torsemide 20 mg 02/02/18 09:00 02/11/18 09:56 Demadex* PO 20 mg DAILY PUSHPA Administration Vital Signs: Vital Signs Temp Pulse Resp BP Pulse Ox 98.2 F 71 18 111/45 97 02/11/18 16:33 02/11/18 16:33 02/11/18 16:33 02/11/18 16:33 02/11/18 16:33 Exam: GENERAL: No acute distress. Alert and appropriate. LUNGS: Clear to auscultation bilaterally HEART: regular rate and rhythm ABDOMEN: Soft, +BS, non-tender, non-distended EXTREMITIES: No edema NEUROLOGIC: Muscle strength 4+/5 BUE/BLE with normal sensation. Assessment/Plan: 1. Parkinson's Disease: PT/OT. Sinemet TID 2. Seizure Disorder: Continue Depakote ER 1500 mg at HS. EEG did not show epileptiform activity 3. Back Pain: Prednisone finished. Gabapentin, low dose 4. Paroxysmal A fib: Pradaxa/Toprol/Rythmol 5. Urinary Hesitancy: Flomax 6. DVT prophylaxis: Pradaxa 7. Advanced Directives: DNR. Has MOLST 02/11/18 18:39
[2018-02-11] MEDS: Tamsulosin CAP* 0.4 MG PO SCH (21:39)
[2018-02-11] MEDS: Divalproex ER TAB(*) 500 MG PO SCH (21:39)
[2018-02-11] MEDS: Lidocaine Patch REMOVE* 1 NOTE MISC SCH (21:48)
[2018-02-12] MEDS: Metoprolol Succinate XL TAB* 50 MG PO SCH (07:38)
[2018-02-12] MEDS: PROPAFENONE 425 MG PO SCH ×2 (07:38→21:23)
[2018-02-12] MEDS: Torsemide TAB* 20 MG PO SCH (07:39)
[2018-02-12] MEDS: DULoxetine DR CAP* 30 MG CAP.DR PO SCH (07:39)
[2018-02-12] MEDS: CMCS - Dabigatran CAP(NF) 150 MG CAP PO SCH ×2 (07:39→21:24)
[2018-02-12] MEDS: Baclofen TAB* 10 MG PO SCH ×2 (07:39→21:25)
[2018-02-12] MEDS: Potassium Chlor TAB* 10 MEQ TAB.ER PO SCH (07:39)
[2018-02-12] MEDS: Carbidopa/Levodop 25/100 MG TAB(*) PO SCH ×3 (07:39→21:23)
[2018-02-12] MEDS: Docusate CAP* 100 MG PO SCH ×2 (07:39→21:24)
[2018-02-12] MEDS: Allopurinol TAB* 100 MG PO SCH ×2 (07:39→21:24)
[2018-02-12] MEDS: Gabapentin CAP(*) 100 MG PO SCH ×2 (07:40→21:24)
[2018-02-12] MEDS: Timolol 0.5% OPTH.SOL* BTL RIGHT EYE SCH (07:46)
--- NOTE | 2018-02-12 19:31 | PN ---
Progress Note Date of Service: 02/12/18 Note: JUJU Cooper JOEL was visited. Therapy notes read and reviewed. Son is leaning toward a short stay at [facility]. Juju is doing ok overall. Current Medications: Active Medications Generic Name Dose Route Start Last Admin Trade Name Freq PRN Reason Stop Dose Admin Acetaminophen 650 mg 02/01/18 14:46 02/10/18 14:11 Tylenol Tab* PO 650 mg Q6H PRN Administration FEVER/HEADACHE Allopurinol 100 mg 02/01/18 21:00 02/12/18 07:39 Zyloprim Tab* PO 100 mg BID PUSHPA Administration Baclofen 5 mg 02/01/18 21:00 02/12/18 07:39 Lioresal Tab* PO 5 mg BID PUSHPA Administration Bisacodyl 10 mg 02/01/18 14:46 Dulcolax Supp* MS DAILY PRN CONSTIPATION Carbidopa/Levodopa 1.5 tab 02/01/18 21:00 02/12/18 14:11 Sinemet 25/100 Tab(*) PO 1.5 tab TID PUSHPA Administration Dabigatran 150 mg 02/01/18 21:00 02/12/18 07:39 Pradaxa Cap(Nf) PO 150 mg BID PUSHPA Administration Divalproex Sodium 1,500 mg 02/04/18 21:00 02/11/18 21:39 Depakote Er Tab(*) PO 1,500 mg BEDTIME PUSHPA Administration Docusate Sodium 100 mg 02/01/18 21:00 02/12/18 07:39 Colace Cap* PO 100 mg BID PUSHPA Administration Duloxetine HCl 30 mg 02/02/18 09:00 02/12/18 07:39 Cymbalta Cap* PO 30 mg DAILY PUSHPA Administration Gabapentin 200 mg 02/11/18 21:00 02/12/18 07:40 Neurontin Cap(*) PO 200 mg BID PUSHPA Administration Magnesium Hydroxide 30 ml 02/01/18 14:46 Milk Of Magnesia Liq* PO Q6H PRN CONSTIPATION Metoprolol Succinate 50 mg 02/02/18 09:00 02/12/18 07:38 Toprol Xl Tab* PO 50 mg DAILY PUSHPA Administration Pharmacy Profile Note 1 note 02/01/18 21:00 02/11/18 21:48 Lidocaine Patch Remove* N/A 1 note 2100 PUSHPA Administration Polyethylene Glycol/Electrolytes 17 gm 02/01/18 15:00 02/09/18 11:36 Miralax* PO 17 gm DAILY PRN Administration CONSTIPATION Potassium Chloride 10 meq 02/02/18 09:00 02/12/18 07:39 Klor Con Er Tab* PO 10 meq DAILY PUSHPA Administration Propafenone HCl 425 mg 02/01/18 21:00 02/12/18 07:38 Rythmol Er (Nf) PO 425 mg Q12HR PUSHPA Administration Senna 2 tab 02/01/18 14:46 02/03/18 20:55 Senokot Tab* PO 2 tab BEDTIME PRN Administration CONSTIPATION Tamsulosin HCl 0.4 mg 02/01/18 21:00 02/11/18 21:39 Flomax Cap* PO 0.4 mg BEDTIME PUSHPA Administration Timolol Maleate 1 drop 02/02/18 09:00 02/12/18 07:46 Timoptic 0.5% Opth* RIGHT EYE 1 drop DAILY PUSHPA Administration Torsemide 20 mg 02/02/18 09:00 02/12/18 07:39 Demadex* PO 20 mg DAILY PUSHPA Administration Vital Signs: Vital Signs Temp Pulse Resp BP Pulse Ox 97.7 F 66 16 111/79 99 02/12/18 15:55 02/12/18 15:55 02/12/18 15:55 02/12/18 15:55 02/12/18 15:55 Exam: GENERAL: No acute distress. Alert and appropriate. LUNGS: Clear to auscultation bilaterally HEART: regular rate and rhythm ABDOMEN: Soft, +BS, non-tender, non-distended EXTREMITIES: No edema NEUROLOGIC: Muscle strength 4+/5 BUE/BLE with normal sensation. Assessment/Plan: 1. Parkinson's Disease: PT/OT. Sinemet TID 2. Seizure Disorder: Continue Depakote ER 1500 mg at HS. EEG did not show epileptiform activity 3. Back Pain: Prednisone finished. Gabapentin, low dose 4. Paroxysmal A fib: Pradaxa/Toprol/Rythmol 5. Urinary Hesitancy: Flomax 6. DVT prophylaxis: Pradaxa 7. Advanced Directives: DNR. Has MOLST 02/12/18 19:32
[2018-02-12] MEDS: Divalproex ER TAB(*) 500 MG PO SCH (21:23)
[2018-02-12] MEDS: Tamsulosin CAP* 0.4 MG PO SCH (21:25)
[2018-02-12] MEDS: Lidocaine Patch REMOVE* 1 NOTE MISC SCH (21:28)
[2018-02-13 06:19] VITALS: BP 138/63
[2018-02-13] MEDS: Acetaminophen TAB* 325 MG PO PRN (06:37)
[2018-02-13] MEDS: PROPAFENONE 425 MG PO SCH (08:15)
[2018-02-13] MEDS: Metoprolol Succinate XL TAB* 50 MG PO SCH (08:16)
[2018-02-13] MEDS: DULoxetine DR CAP* 30 MG CAP.DR PO SCH (08:16)
[2018-02-13] MEDS: Potassium Chlor TAB* 10 MEQ TAB.ER PO SCH (08:16)
[2018-02-13] MEDS: Torsemide TAB* 20 MG PO SCH (08:16)
[2018-02-13] MEDS: Allopurinol TAB* 100 MG PO SCH (08:17)
[2018-02-13] MEDS: CMCS - Dabigatran CAP(NF) 150 MG CAP PO SCH (08:17)
[2018-02-13] MEDS: Carbidopa/Levodop 25/100 MG TAB(*) PO SCH ×2 (08:18→13:09)
[2018-02-13] MEDS: Baclofen TAB* 10 MG PO SCH (08:19)
[2018-02-13] MEDS: Gabapentin CAP(*) 100 MG PO SCH (08:20)
[2018-02-13] MEDS: Docusate CAP* 100 MG PO SCH (08:28)
[2018-02-13] MEDS: Timolol 0.5% OPTH.SOL* BTL RIGHT EYE SCH (08:47)
--- NOTE | 2018-02-13 13:10 | TRS ---
CC: Dr. Jeimy Woodall; Dr. Graeme Schwartz* TRANSFER SUMMARY: DATE OF ADMISSION: 02/01/18 DATE OF TRANSFER: 02/13/18 DISPOSITION: The patient is being transferred to [facility]*. DISCHARGE DIAGNOSES: 1. Parkinson's disease. 2. Atrial fibrillation. 3. Obstructive sleep apnea. 4. Gout. 5. Hypertension. 6. Urinary tract infection. 7. Seizure disorder. 8. Benign prostatic hypertrophy. HISTORY OF ILLNESS AND HOSPITAL COURSE: For complete history of the events leading up to his rehab stay, please see the history and physical dictated by me on 02/01/18. While on the rehab unit, the patient did have a urinalysis sent , which grew out 50,000 Proteus mirabilis sensitive to Bactrim. He was treated with a 5- day course of Bactrim. The patient appeared to be having seizures while on the rehab unit. It was eventually found that the patient had already been diagnosed with partial seizures and had been on Depakote ER 1500 mg at bedtime, which he was not on since he was admitted to the acute hospital. This was restarted. The patient later had continued aura after restarting his Depakote. His valproic acid level was in the normal range and he had an EEG done, which did not show any epileptiform activity. The patient was tapered off prednisone, which had been started on the acute service for back pain. He also continued to take gabapentin for his back pain. Otherwise, the patient was medically stable. He was seen by both Physical Therapy and Occupational Therapy. He did make gains with both disciplines. With physical therapy at the time of admission, the patient required contact guard to transfer, min assist to ambulate. He was able to ambulate about 100 feet. By the time of discharge, he was supervision to transfer and supervision to ambulate 400 feet. The patient was not able to achieve independence. With occupational therapy at the time of admission, the patient was min assist upper body dressing, min assist lower body dressing. By the time of discharge, he remained min assist for lower body dressing, was able to toilet himself independently. The patient was at some risk for falls at the time of discharge. He is going to be transferred to [facility] to undergo therapy on a slower scale so that he can return home with his son to independent living. DISCHARGE DIET: Regular. DISCHARGE MEDICATIONS: 1. Allopurinol 100 mg twice a day. 2. Baclofen 5 mg twice a day. 3. Sinemet 25/100, [id number] tablets 3 times a day. 4. Pradaxa 150 mg twice daily. 5. Depakote ER 1500 mg at bedtime. 6. Cymbalta 30 mg daily. 7. Neurontin 200 mg twice daily. 8. Toprol-XL 50 mg daily. 9. Rythmol 425 mg every 12 hours. 10. Potassium chloride 10 mEq daily. 11. Flomax 0.4 mg at bedtime. 12. Demadex 20 mg daily. 13. Timoptic 0.5% ophthalmic solution 1 drop to his right eye daily. SERVICES AFTER DISCHARGE: He should have restorative physical therapy and occupational therapy. FOLLOWUP: He can follow up with his neurologist, Dr. Jeimy Woodall as needed. He will also follow up with his primary care doctor, Dr. Graeme Schwartz. [id number]/[facility] #: [id number] [facility]
== END 2018-02-13 14:10 | DRG 57 ==
LOC: PMRU 14:30
PROVIDERS: ADMIT Physical Medicine & Rehabilitation; ATTEND Physical Medicine & Rehabilitation
PROC: F07Z5ZZ Bed Mobility Treatment (ICD-10-PCS; principal; 2018-02-01)
PROC: F07Z9ZZ Gait Training/Functional Ambulation Treatment (ICD-10-PCS; 2018-02-01)
PROC: F07Z8ZZ Transfer Training Treatment (ICD-10-PCS; 2018-02-01)
PROC: F08Z0ZZ Bathing/Showering Techniques Treatment (ICD-10-PCS; 2018-02-01)
PROC: F08Z1ZZ Dressing Techniques Treatment (ICD-10-PCS; 2018-02-01)
PROC: F08Z3ZZ Feeding/Eating Treatment (ICD-10-PCS; 2018-02-01)
DX: G20 Parkinson's disease (principal); N39.0 Urinary tract infection, site not specified; I48.0 Paroxysmal atrial fibrillation; G47.33 Obstructive sleep apnea (adult) (pediatric); M10.9 Gout, unspecified; I10 Essential (primary) hypertension; B96.4 Proteus (mirabilis) (morganii) as the cause of diseases classified elsewhere; G40.909 Epilepsy, unspecified, not intractable, without status epilepticus; N40.1 Benign prostatic hyperplasia with lower urinary tract symptoms; R39.11 Hesitancy of micturition; R42 Dizziness and giddiness; M54.5 Low back pain; Z66 Do not resuscitate; Z96.641 Presence of right artificial hip joint; Z79.01 Long term (current) use of anticoagulants; Z79.891 Long term (current) use of opiate analgesic; Z79.52 Long term (current) use of systemic steroids; Z79.899 Other long term (current) drug therapy; Z88.0 Allergy status to penicillin
CPT/HCPCS: 36415; 80053; 80164; 81003; 81015; 85025; 87077; 87086; 87186; 94762; 95819; A9270-GY; G0515-GO; J7512

== ENCOUNTER 2018-03-24 14:38 | Emergency (ER) | payer MEDICARE, BC ==
--- OUTSIDE RECORDS SUMMARY | 2018-03-24 15:56 | XMS REPORT ---
:1940 External Reference #:[id number] Author Organization [employer] Address [address] [place] [address] [place] [address] Phone [phone] Care Team Providers Name Role Phone Jeni Schwartz M.D. Primary Care Physician Unavailable Payers Type Date Identification Numbers Payment Provider Subscriber Medicare Primary Policy Number: [id number] Medicare Juju Dewitt SR Group Name: Retired [address] PayID: [id number] JUDY Coulter [id number] [facility] Number: [id number] [facility] Juju Dewitt SR Group Number: [id number] [address] Group Name: [place] [address] PayID: [id number] Problems Date Description Provider Status Onset: 04/19/2014 Obstructive sleep apnea of Pricila Altamirano DNP RN, Active adult [employer] Onset: 07/08/2014 Obstructive sleep apnea Samantha Shipley MD Active syndrome Onset: 07/08/2014 Obesity Samantha Shipley MD Active Onset: 02/08/2015 Thoracic Aortic Ectasia Zuhair Elliott M.D., [facility], Active [facility] Onset: 03/29/2015 Restless legs [...] Paroxysmal atrial fibrillation Zuhair Elliott M.D., Active [facility], [facility] Onset: 10/21/2016 Mild cognitive disorder Jeimy Woodall [...] along with home exercises General Hx Text right handed Allergies, Adverse Reactions, Alerts Date Description Reaction Status Severity Comments 11/10/2013 Penicillin active Medications Medication Date Status Form Strength Qnty SIG Indications Ordering Provider Hydrocodone-Acetam 02/17 Active 5-325mg 1 tablet po Unknown ino every 4 hours as needed pain Duloxetine HCL 02/[address] 30mg 1 by mouth Part every day ( Given at [facility] as of 02/14/18) Flomax 02/14 Active Capsules 0.4mg 1 by mouth every day Potassium Chloride 02/14 Active Tablets 10Meq 1 by mouth Unknown ER ER every day Torsemide 02/14 Active Tablets 20mg 1 by mouth every day Oxygen 02/13 Active Misc please use o2 at 2l/min at bedtime Gabapentin 02/13 Active Capsules 100mg 2 cap po twice daily Carbidopa-Levodopa 01/15 Active Tablets 25-100mg 135ta 1.5 tabs by G20 bs mouth, 30 Cowdery, min before M.D. meals, three times a day. Semi-Electric 12/24 Active Misc 1unit for daily [facility] Bed /2017 s use at home Too Woodall Acetaminophen 10/28 Active Tablets 325mg 60tab 2 tablets s by mouth [place], every 6 [employer] hours as needed for pain/fever Cymbalta 10/[address] 60mg 30cap 1 by mouth F33.9 Part s every day( [place], Med change [employer] given a lower dose 30mg daily at [facility]) Diphenhydramine-Ac 10/28 Active 25-500 1 tab Po Kristin etaminophen prn at hs Twyla, [employer] Colace 10/28 Active Capsules 100mg 90cap 1 tab by s mouth bid Twyla, [employer] Methylcellulose 10/28 Active 1 tab PO qd K59.00 Kristin Tablet prn Twyla, [employer] Vitamin D3 10/28 Active Tablets 5000Unit 90tab take 1 tab E55.9 s by mouth [place], daily [employer] Walker [place] 05/13 Active Misc -07/14" 1unit Use as Shiela Wheels/ s directed. Trupti Avalos dx: lewis SAL M.D. Holes/-07/14" Commode Bedside 05/13 Active Misc 1unit Use as Shiela s directed Robbie, dx: lewis SAL M.D. Raised Toilet Seat 04/28 Active Misc 1unit use after M25.551 Shiela s right total seamus Avalos M.D. arthroplast y Propafenone HCL ER 07/28 Active Caps ER 425mg 180ca one tab by Zuhair 12HR ps mouth every Brownlee 12 hours Too Elliott, NATHANAEL, [facility] Pradaxa 12/14 Active Capsules 150mg 180ca 1 cap by Zuhair ps mouth twice Brownlee a day Too Elliott, [facility], [facility] Depakote ER 11/12 Active Tablets 500mg 90tab take 3 ER 24HR s tablets by Cowdery, mouth every M.D. night at bedtime Amlodipine Active Tablets 10mg 90tab 1 by mouth Unknown Bes s every day Ascorbic Acid Active Tablets 500mg 30tab 1 by mouth Unknown /0000 s every day Allopurinol Active Tablets 100mg give 200 mg Unknown PO bid Timolol Maleate Active Solution 0.5% 1 gtt right Unknown / eye Q hs Prednisone Active Tablets 10mg one tab po Unknown daily for gout taper dose Tramadol HCL Active Tablets 50mg 1 tablets Unknown /0000 by mouth every 6 hours as needed pain Bacitracin Active Ointment 500Unit/G apply to Unknown (External) /0000 M affected areas twice a day x 10 days Lactobacillus Active Tablets 1 by mouth Unknown /0000 twice daily Baclofen Active Tablets 5mg 1 tablet po Unknown 0000 every 12 hours as needed muscle spasms Bengay Ultra Active Patches 5% applied to Unknown Strength /0000 L hip topically one time a day for left hip pain Metoprolol Active Tablets 50mg 1 by mouth Unknown Succinate ER /0000 ER 24HR every day ( [facility] discharge 02/01/18 ) Carbidopa-Levodopa 10/28 Hx Tablets 10-100mg 90tab tab 1 by G20 Jeimy s mouth three Cowdery, - times a day M.D. 01/15 Bactrim DS 04/29 Hx Tablets 800-160mg 6tabs take 1 by Shiela mouth twice Robbie, - a day for 3 M.D. Levetiracetam 01/22 Hx Tablets 500mg 120ta take 1 by G40.209 Jeimy bs mouth at [facility], - night x 2 M.D. 04/08 weeks; 1 twice a day x 2 weeks; then 1 in am and 1 in pm x 2 weeks; then 2 tabs 2x a day Potassium Chloride 05/14 Hx Tablets 20Meq 270ta 3 tabs by Zuhair ER bs mouth every - Elliott, 10/28 [facility]. [facility] Potassium Chloride 05/13 Hx Tablets 20Meq 240ta 3 tabs by Zuhair ER ER bs mouth every Brownlee - day Elliott, 05/13 M.D. [facility], ELLEN Lortab 07/28 Hx Tablets 5-325mg 60tab 1 or 2 M25.561 Shiela s tablets q8 Robbie, - hours as M.D. 03/14 needed pain Carbidopa-Levodopa 12/08 Hx Tablets 25-100mg 405ta take 1.5 G20 Jeimy bs tablet by Talisha, - mouth 20 M.D. prior to breakfast, lunch and dinner Metoprolol 01/25 Hx Tablets 25mg 90tab 1 by mouth Zuhair Succinate ER ER 24HR s every day Brownlee - along with Earl, 10/28 a 100mg tab M.D., FACC, ELLEN Metoprolol 01/25 Hx Tablets 100mg 90tab 1 by mouth I10 Zuhair Succinate ER ER 24HR s every day Kem Elliott, 03/02 M.D., FACC, FASDAVID Metoprolol 01/21 Hx Tablets 125mg 1 by mouth Zuhair Succinate ER ER 24HR every day Brownlee - Earl, 01/25 M.D., FACC, FASNC Rythmol SR 02/15 Hx Caps ER 325mg 180ca 1 cap by Zuhair 12HR ps mouth twice - a day Elliott, 02/15 M.D., FACC, MIGUELNC Rythmol SR 02/15 Hx Caps ER 425mg 180ca one tablet Zuhair 12HR ps by mouth - every , 07/27 hours M.D., FACC, ELLEN Metoprolol 12/21 Hx Tablets 25mg 30tab 1 by mouth Zuhair Succinate ER 24HR s every day Brownlee - along with , 01/21 100mg M.D., tablet FACC, ELLEN Metoprolol 11/23 Hx Tablets 100mg 30tab 1 by mouth Zuhair Succinate ER 24HR s every day Kem Elliott, 01/21 M.D., FACC, MIGUELNC Rythmol SR 05/21 Hx Caps ER 325mg 180ca 1 po bid Zuhair 12HR ps Kem Elliott, 02/15 M.D., FACC, ELLEN Magnesium 05/14 Hx Tablets 200mg 30tab 1 po qd Zuhair s Kem Elliott, 11/08 M.D., FACC, ELLEN Klor-Con M20 05/14 Hx Tablets 20Meq 270ta 3 tabs by Zuhair ER bs mouth every - day Elliott, 07/27 M.D., FACC, ELLEN Rythmol SR 04/20 Hx Caps ER 225mg 180ca 1 po bid Zuhair 12HR ps Kem Elliott, 05/21 Too ELLEN SALAZAR Klor-Con M20 04/08 Hx Tablets 20Meq 180ta 2 Tabs PO ER bs Daily Kem Elliott, 05/14 Too ELLEN SALAZAR Cholestyramine Hx Packet 4gm 1 packet [place], / twice a MD Ric - day. mixed [...] - mouth once 10/28 Nystatin-Triamcino Hx Ointment 220363-8. apply to Unknown lone /0000 1Unit/GM- affected - % area On The 03/07 Skin a day Cholestyramine Hx Packet 4gm 2x a day Unknown /0000 - 10/28 Lactobacillus Hx Capsules 1 tab by Unknown Extra Strength /0000 mouth bid - 12/18 Nystatin Hx Powder [id number] topical Unknown /0000 t/GM twice a day - as needed 02/25 Medications Administered in Office Medication Date Status [...] Millicuries Vital Signs Date Vital Result Comment 03/03/2018 Height 64 inches 5'4" Weight 232.00 lb with shoes Heart Rate 68 /min BP Systolic Sitting 110 mmHg Lue reg cuff BP Diastolic Sitting 60 mmHg Lue reg cuff BP Systolic Standing 92 mmHg Lue reg cuff pt states "lightheaded" BP Diastolic Standing 60 mmHg Lue reg cuff pt states "lightheaded" Respiratory Rate 16 /min BMI (Body Mass Index) 39.8 kg/m2 Ejection Fraction 60-65% date 02/25/18 ECHO 02/26/2018 Height 64 inches 5'4" Weight 236.00 lb Heart Rate 78 /min BP Systolic 138 mmHg BP Diastolic 78 mmHg Respiratory Rate 18 /min BMI (Body Mass Index) 40.5 kg/m2 10/24/2017 Height 64 inches 5'4" Heart Rate [...] H/L Range Note Laboratory test finding 10/29/2017 Lyme Disease Serology Negative Negative 1, 2 Laboratory test finding 10/29/2017 C Reactive Protein 3.69 mg/L < 5.00 1 , 3 Erythrocyte Sed Rate 8 mm/Hr 0-40 1, 4 Uric Acid 6.2 mg/dL 4.4-7.6 1, 5 Connective Tissue Panel 10/29/2017 Anti-Nuclear Antibody 0.4 U 1, 6 Cyclic Citrullinated Peptide <15.6 U 1, 7 Interpretation See Comment 1, 8 Hla B27 10/29/2017 Hla B27 Negative 1, 9 Hla B27 Interp See Comment 1, 10 Laboratory test finding 10/29/2017 Rheumatoid Factor <10 IU/mL 0-14 1, 11 Laboratory test finding 04/30/2017 Valproic [...] >60 13 Egfr 98.6 >60 13, 14 CBC No Diff 04/28/2017 White Blood Count [...] 13 Urine Appearance Cloudy 13 Urine Specific [place] 1.027 1.010-1.030 13 Urine pH 5.0 5-9 13 Urine Urobilinogen Negative Negative 13 Urine Ketones Trace Negative 13 Urine Protein 1+(30 mg/dL) Negative 13 Urine Leukocytes 2+ Negative 13 Urine Blood Negative Negative 13 * * Negative 13, 15 Urine Nitrite Negative Negative 13 Urine Bilirubin Negative Negative 13 Urine Glucose Negative Negative 13 Urine White Blood Cell 3+(>20/hpf) Absent 13 Urine Red Blood Cell Trace(0-2/hpf) Absent 13 Urine Bacteria 1+ Absent 13 Urine Squamous Epithelial Cell Present Absent 13 Urine Hyaline Casts Present Absent 13 Urine Amorphous Crystals Present Absent 13 Inr/Protime 04/28/2017 Inr 1.10 0.89-1.11 13 Laboratory test 04/28/2017 Partial Thrombo 43.0 seconds High 26.0-36.3 13 , 16 finding Time PTT Type & Screen 04/28/2017 Patient Blood O Positive 13 Type Antibody Screen NEGATIVE 13 Urine Culture And 04/28/2017 Urine Culture SEE RESULT 13, 17 Sensitivities BELOW Laboratory test 04/09/2017 Valproic Acid 38.0 g/mL [...] finding 11/03/2013 Valproic Acid 52 g/mL 50.0-100.0 Laboratory test finding 09/10/2013 Uric Acid 8.4 mg/dL High 4.4-7.6 37 PSA Screening 0.222 ng/mL 0-4.000 38 Lipid Profile (Trig/Chol/HDL) 09/10/2013 Triglycerides 91 mg/dL 39 Cholesterol 109 mg/dL 40 HDL Cholesterol 31.1 mg/dL 41 LDL Cholesterol 60 mg/dL 42 Comp Metabolic Panel 09/10/2013 Sodium 140 mmol/L [...] Egfr Non- 69.8 >60 Egfr 89.8 >60 43 CBC Auto Diff 09/10/2013 White Blood Count [...] 0-2 Nucleated Red Blood Cells % 0 Laboratory test finding 05/18/2013 Magnesium 1.9 mg/dL [...] Non- 82.7 >60 Egfr 106.4 >60 47 Basic Metabolic Panel 05/13/2012 Sodium 142 mmol/L [...] 150-450 Mean Platelet Volume 9 um3 7.4-10.4 Laboratory test finding 05/13/2012 Magnesium 1.8 mg/dL 1.7-2.6 TSH (Thyroid Stimulating Horm) 2.56 MIU/ML 0.34-5.60 Basic Metabolic Panel 04/07/2012 Sodium 135 mmol/L 133-145 Potassium 3.8 mmol/L 3.5-5.0 Chloride 105 mmol/L 101-111 Co2 Carbon Dioxide 28.0 mmol/L 22-32 Anion Gap 2.0 mmol/L 2-11 Glucose 108 mg/dL High 70-100 Blood Urea Nitrogen 14 mg/dL 6-24 Creatinine 1.20 mg/dL 0.50-1.40 BUN/Creatinine Ratio 11.7 8-20 Calcium 8.4 mg/dL 8.1-9.9 Egfr Non- 59.3 >60 Egfr 76.3 >60 49 1 [id number] [facility] [address], Room Number 109P 2 No evidence of antibodies to B. burgdorferi detected. False negative results may occur in recently infected patients (<=2 weeks) due to low or undetectable antibody levels to B. burgdorferi. If recent exposure is suspected, a second sample should be collected and tested in 2-4 weeks. Test Performed by: [facility] [address] [place] [address] 3 Acute inflammation: >10.00 4 [id number] [facility] [address], Room Number 109P 5 [id number] [facility] [address], Room Number 109P 6 REFERENCE VALUE <=1.0 (Negative) 7 REFERENCE VALUE <20.0 (Negative) 8 Tests for antibodies to dsDNA and ZAKIA antigens are not performed automatically unless the JUNI result is > or= 3.0 U. Studies performed at [facility] indicate that positive JUNI results <3.0 U are rarely accompanied by positive second order tests. Test Performed by: [facility] - [address] [address] 9 REFERENCE VALUE Not Applicable 10 RESULT: HLA-B27 antigen was not detected. ADDITIONAL INFORMATION Method: Flow Cytometry Performing Laboratory CLIA# [id number] Test Performed by: [facility] - [address] [address] 11 Performed by [facility], [address] [place] [id number] [email or web address], Axel Bush MD - Lab. Director Test Performed by: [facility] [address] [place] [address] 12 ORDERED 04/12/17 EXPIRES 10/11/17 DRAW IN [...] 5 Kidney failure <15 (or dialysis) 15 *Ascorbic acid is present which may interfere with detection of blood. 16 05/15 17 SEE RESULT BELOW Name: JUJU DEWITT SR : [address]: Shiela Avalos MD Acct: [id number] Unit: [id number] AGE: 77 Location: [facility] Re04/28/17 SEX: M Status: REG REF SPEC: [id number] DLAE: 04/28/[address] [facility] [address]: Shiela Avalos MD REQ: [id number] RECD: 04/28/17 STATUS: NATALYA BROWN DR: Zuhair Woodall MD _ SOURCE: URINE SPDESC: ORDERED: Urine Culture COMMENTS: 05/15 QUERIES: Urine Source: Clean Catch Procedure Result Reported Site Urine Culture Final 04/30/17- 0823 ML Organism 1 ENTEROCOCCUS FAECALIS [place] Count >100,000 (Many) CFU/ML 1. ENTEROCOCCUS FAECALIS [...] performed at Main Lab DEPARTMENT OF PATHOLOGY, [address] [place] [address] Héctor Block M.D. Director JERILYN # [id number] Patient: JUJU DEWITT SR [id number] (Continued) Specimen: [id number] Collected: 04/28/17 Received: 04/28/17 (Continued) Procedure Result Reported Site Urine Culture Final (continued) * These antibiotics are not available in the [facility] Formulary Contact the Microbiology Department for any additional antibiotic reporting. * ML - MAIN LAB ([facility]) . END OF REPORT * ML=Testing performed at Main Lab DEPARTMENT OF PATHOLOGY, [address] [place] [address] Héctor Block M.D. Director [facility] # [id number] 18 Because ethnic data is not always [...] of medication Copy Result to: JENI SCHWARTZ ([id number]) 25 Because ethnic data is not always [...] 145 to 180 Deficient Range <145 37 FASTING 38 Serum levels of PSA measured using the HexaTech DXI Hybritech immunoassay should not be interpreted [...] methods or kits cannot be used interchangeably. 39 Desirable <150 Borderline high 150-199 High 200-499 Very High >500 40 Desirable <200 Borderline high 200-239 High >239 41 Low <40 Desirable: 40-60 High: >60 42 Desirable <100 Near Optimal 100-129 Borderline high 130-159 High 160-189 Very High >189 43 Because ethnic data is not always readily [...] 15-29 5 Kidney failure <15 (or dialysis) 44 PT HAS PROCEDURE AT 1PM TODAY [...] dialysis) Procedures Date CPT Code Description Status 03/03/2018 00936 EKG Tracing & Interpretation Completed 02/25/2018 52077 ECHO Transthoracic, Real-Time 2D With Doppler And Color Completed Flow 02/09/2018 95504 Electroencephalogram (EEG) Extended Monitoring 41-60 Completed Minutes 05/16/2017 07420 EKG, Interpretation Only Completed 05/15/2017 27095 THR Total Hip Replacement Completed 05/15/2017 49966 THR Total Hip Replacement Completed 04/30/2017 58460 EKG Tracing & Interpretation Completed 04/21/2017 07047 Myocardial Perfusion Imaging Tomographic (Spect) Completed Multiple Studies 04/21/2017 46938 Stress Test Completed 03/03/2017 10478 EKG Tracing & Interpretation Completed 02/05/2017 03579 ECHO Transthoracic, Real-Time 2D With Doppler And Color Completed Flow 03/05/2016 50459 EKG Tracing & Interpretation Completed 01/31/2016 43563 ECHO Transthoracic, Real-Time 2D With Doppler And Color Completed Flow 02/08/2015 89841 EKG Tracing & Interpretation Completed 01/23/2015 80824 ECHO Transthoracic, Real-Time 2D With Doppler And Color Completed Flow 01/21/2014 29751 EKG Tracing & Interpretation Completed 12/30/2013 05278 ECHO Transthoracic, Real-Time 2D With Doppler And Color Completed Flow 03/22/2013 73580 EKG Tracing & Interpretation Completed 02/17/2013 87524 EKG, Interpretation Only Completed 02/17/2013 54966 EKG Tracing & Interpretation Completed 02/17/2013 60270 EKG Tracing & Interpretation Completed 02/17/2013 74300 Cardioversion Completed 12/18/2012 98126 ECHO Transthoracic, Real-Time 2D With Doppler And Color Completed Flow 07/23/2012 06922 EKG Tracing & Interpretation Completed 05/21/2012 37766 EKG Tracing & Interpretation Completed 05/13/2012 96828 Cardioversion Completed 05/13/2012 70196 EKG Tracing & Interpretation Completed 05/13/2012 66279 EKG, Interpretation Only Completed 04/27/2012 77427 EKG Tracing & Interpretation Completed 03/03/2012 76267 Polysomnography Sleep Staging 4+ Parameters W/Cpap Completed 01/16/2012 19649 Polysomnography Sleep Staging 4+ Parameters W/Cpap Completed 12/23/2011 73143 Polysomnography Sleep Staging 4+ Parameters Completed 12/23/2011 51276 Polysomnography Sleep Staging 4+ Parameters Completed 08/14/2009 49838 EKG, Interpretation Only Completed 08/14/2009 33692 Insert Non-Tunneled Venous Catether Completed Encounters Type Date Location Provider CPT E/M Dx Office Visit 03/03/2018 [facility] Zuhair Brownlee Elliott, [address] I48.0 1:45p Delma Gage, [facility], FASIA I77.810 Office Visit 02/26/2018 1:00p [facility] Jeimy Woodall M.D. 09603 G40.909 Services [facility] G20 M25.539 M25.579 Office Visit 02/01/2018 1:57p [facility],anthony Dickens 02155 M54.5 Nicolas Childress MD R09.02 G47.33 Office Visit 01/31/2018 7:00a Neurosurgery Services Carmen Buenrostro PA-C 60923 M48.061 Of [facility] M51.36 Office Visit 01/31/2018 1:56p [facility],anthony Dickens 12153 M54.5 Nicolas Childress MD R09.02 Office Visit 01/30/2018 1:56p [facility] hoff 79466 M54.5 Hospitallilibeth Childress MD R09.02 Office Visit 01/29/2018 7:00a [facility] [address] G20 M51.36 Office Visit 01/29/2018 1:55p [facility],anthony Dickens 63019 M54.5 Nicolas Childress MD R09.02 Office Visit 01/28/2018 7:00a [facility] [address] G20 M51.36 R79.82 Office Visit 01/28/2018 1:55p [facility],anthony Cintron 04665 M54.5 Nicolas Gage R09.02 Office Visit 01/27/2018 1:55p [facility],pc Klever Cintron, 35728 M54.5 Hospitalists Too R09.02 Office Visit 01/27/2018 7:00a [facility] [address] G20 M51.36 G62.9 Office Visit 12/29/2017 11:16a [facility], Chip Gaffney, 61392 M25.521 Hospitalists Too M25.571 Office Visit 12/28/2017 [facility] 77512 M25.521 Assoc,pc Hospitallilibeth BENAVIDES M.D. M25.571 Office Visit 12/19/2017 1:45p [facility] Jeimy Woodall M.D. 32708 G20 Services [facility] F03.90 G40.909 Office Visit 12/01/2017 8[facility] [place] [address] G20 R60.0 I10 M10.9 S81.802D Z96.641 I48.0 G40.89 Office Visit 11/21/2017 9:15a [facility] Citlaly Riley D.O. 06114 G20 I48.0 M10.9 S81.802D Office Visit 10/24/2017 10:00a Rheumatology Services Of Alejandro Holland, 21937 M10.9 Delma Gage M10.031 M25.571 M06.4 Office Visit 10/09/2017 11:30a [facility] Sol Trinh.O. 06135 G20 Z96.641 M10.031 I48.0 Office Visit 08/22/2017 8:15a [facility] [place] [address] G20 R60.0 R19.5 Z96.641 Office Visit 08/20/2017 8:30a [facility] [place] [address] R60.0 M25.531 M25.572 M25.571 Office Visit 08/18/2017 8:30a [facility] [place] [address] M10.031 L03.116 Office Visit 07/28/2017 8:00a Prashant [place], [employer] 33229 M25.531 R60.0 Office Visit 07/23/2017 8:15a Prashant Nunez, [employer] 96313 M10.031 Office Visit 07/22/2017 9:00a Prashant Nunez, [employer] 96890 M25.531 Office Visit 07/17/2017 11:30a Prashant Nunez, [employer] 58007 R60.0 Office Visit 07/08/2017 8:30a Prashant Nunez, [employer] 23141 K62.5 Office Visit 06/28/2017 9:15a Prashant Bean Svitlana Mae M.D. 41146 M10.031 M10.071 R60.0 Z96.641 Office Visit 06/11/2017 8:45a Prashant [place], [employer] 37178 M25.531 Office Visit 06/03/2017 8:15a [facility] Citlaly Riley D.O. 02264 I48.0 G20 I10 G47.33 Z96.641 Office Visit 05/30/2017 8:00a Prashant [place], [employer] 07664 R60.0 M25.531 Z96.641 Office Visit 05/26/2017 12:40p [facility] Moe Kiser, 04590 N17.9 Assoc,pc [place] Hospitalists I48.0 Z96.641 G20 Office Visit 05/25/2017 12:39p [facility],pc Savana Alba, N.P. 04204 N17.9 Hospitalists I48.0 Z96.641 G20 Office Visit 05/24/2017 12:38p [facility],pc Savana Alba N.P. 05628 N17.9 Hospitalists I48.0 Z96.641 G20 Office Visit 05/23/2017 12:38p [facility],pc Savana Alba N.P. 73287 N17.9 Hospitalists I48.0 Z96.641 G20 Office Visit 05/22/2017 12:37p [facility],pc Savana Alba, N.P. 53145 N17.9 Hospitalists I48.0 Z96.641 G20 Office Visit 05/22/2017 2:04p [facility] Adams Orta 95420 G93.40 Too Cesar Office Visit 05/21/2017 12:36p [facility], Stepan Villasenor, 61429 Z96.641 Hospitalists PA G20 I48.0 N17.9 Office Visit 05/20/2017 10:16a [facility], SARAH Ramirez 26846 G20 Hospitalists I48.0 N17.9 Z96.641 Office Visit 05/19/2017 10:15a [facility], SARAH Ramirez 37221 G20 Hospitalists I48.0 N17.9 Z96.641 Office Visit 05/18/2017 10:14a [facility], SARAH Raimrez 64767 G20 Hospitalists I48.0 N17.9 Z96.641 Office Visit 05/18/2017 9:49a [facility] [place] 18187 G93.40 Too Cesar Office Visit 05/17/2017 10:13a [facility], Stepan Villaseonr, 83643 G20 Hospitalists PA I48.0 N17.9 Z96.641 Office Visit 05/16/2017 10:13a [facility], SARAH Ramirez 84121 G20 Hospitalists I48.0 N17.9 Office Visit 05/15/2017 10:11a [facility] Moe Kiser, 16102 G20 Assoc, [place] Hospitalists I48.0 G40.909 Z96.641 Office Visit 04/30/2017 11:30a [facility] Of Zuhair Elliott, 83588 I48.0 Delma aGge, [facility], [facility] M16.11 Z01.810 Office Visit 04/09/2017 3:00p [facility] Jeimy Woodall M.D. 40781 G40.209 Services Of [employer] G20 Office Visit 03/24/2017 2:00p Orthopedic Services Of Shiela Avalos M.D. 58207 M25.551 C.M.ANunu M16.11 Office Visit 03/03/2017 1:15p [facility] Zuhair Elliott, 95224 I48.0 Delma Gage, [facility], [facility] Office Visit 01/22/2017 2:30p [facility] Jeimy Woodall M.D. 35629 G20 Services Of [employer] G25.81 G40.209 G31.84 Office Visit 12/06/2016 10:15a Orthopedic Services Of Shiela Avalos M.D. 76687 M16.11 C.M.A. M25.551 Office Visit 10/21/2016 2:00p [facility] Jeimy Woodall M.D. 00517 G20 Services Of [employer] G25.81 G40.209 Office Visit 06/20/2016 2:30p [facility] Jeimy Woodall M.D. 50531 G20 Services Of [employer] G25.81 G40.209 Z79.899 Office Visit 03/05/2016 2:00p [facility] Zuhair Elliott, 77653 I48.0 Delma Gage, [facility] Office Visit 10/19/2015 3:15p [facility] [place] [address] G47.33 Services Of [employer] E66.01 Office Visit 10/04/2015 11:00a [facility] Jeimy Woodall M.D. 05149 G20 Services Of [employer] G25.81 G40.209 F32.9 Office Visit 08/28/2015 1:00p Orthopedic Services Of Shiela Avalos M.D. 36522 M16.11 C.M.A. M25.551 M25.512 Office Visit 07/28/2015 10:30a [facility] Services Of Shiela Avalos M.D. 81929 M25.561 C.M.A. M25.551 M16.11 M25.461 Office Visit 03/29/2015 11:45a [facility] Jeimy Woodall M.D. 41280 G25.81 Services Of [employer] G20 G40.009 Z79.899 Office Visit 02/28/2015 10:45a [facility] [place] [address] 327.23 Services Of [employer] 278.00 Office Visit 02/08/2015 10:30a [facility] Elliott, 19668 447.71 Delma Gage, FACC, FASNC 401.9 Office Visit 12/08/2014 11:45a [facility] Jeimy Woodall M.D. 46445 345.40 Services Of Cephal[facility]st 332.0 333.94 Office Visit 10/10/2014 2:45p [facility] Jeimy Woodall M.D. 40002 345.40 Services Of Cephalometric [facility]st 333.1 332.0 Office Visit 07/08/2014 10:45a [facility] [place] [address] 327.23 Services Of [facility] 278.00 Office Visit 05/18/2014 11:00a [facility] Jeimy Woodall M.D. 35927 345.40 Services Of [facility] 333.1 Office Visit 04/19/2014 1:30p [facility] Pricila Altamirano 71863 327.23 Services Of [facility] TERE, RN, ELEVATOR RUNNER- Office Visit 01/21/2014 10:45a [facility], 29143 427.31 Delma Gage, FACC, FASIA Office Visit 11/10/2013 11:00a [facility] Jeimy Woodall M.D. 78421 345.40 Services Of [facility] 333.1 780.79 Office Visit 03/22/2013 9:45a [facility], 92260 427.32 Delma Gage, FACC, FASNC Office Visit 02/17/2013 12:39p [facility], 98400 427.32 Cephalometric Analyst Too, FACC, FASNC Office Visit 12/28/2012 10:30a [facility], 32802 441.2 Delma Gage, FACC, FASNC Office Visit 11/12/2012 11:30a [facility] Jeimy Woodall 33908 345.40 Services Of Cephalometric Analyst Too Office Visit 07/23/2012 11:30a [facility], 06500 785.1 Delma Gage, FACC, FASNC 427.31 Office Visit 05/21/2012 10:30a [facility] Kem Elliott, 99993 427.31 Cephalometric Analyst Adalberto.Mateusz, [facility], [facility] Office Visit 05/13/2012 9:23a [facility] [place] Elliott, 38020 427.81 Cephalometric Analyst Too, [facility], [facility] Office Visit 03/10/2012 9:54a [facility] Chip Cabrera, 57651 327.23 Center M.D. Office Visit 01/27/2012 11:28a [facility] Chip Cabrera, 46335 327.23 Center M.D. Office Visit 01/15/2012 11:25a [facility] Chip Cabrera, 67475 327.23 Center M.D. Office Visit 08/19/2009 2:45a [facility], Clarita Ocampo, 68516 274.9 Hospitalists M.D. 715.90 Office Visit 08/18/2009 3:30a [facility], Clarita Ocampo, 06122 274.9 Hospitalists M.D. Office Visit 08/17/2009 12:45a [facility], Corey Barron, 41736 585.6 Hospitalists M.D. 575.0 285.9 401.9 Office Visit 08/16/2009 12:30a [facility], Zaki Zepeda D.O. 92364 585.6 Hospitalists 575.0 285.9 401.9 Office Visit 08/15/2009 12:30a [facility], Zaki Zepeda D.O. 03025 575.0 Hospitalists 458.9 276.2 285.9 518.0 Office Visit 08/14/2009 2:15a [facility], Zaki Zepeda D.O. 23171 575.0 Hospitalists 518.81 584.9 458.9 285.9 345.90 278.00 Plan of Care Future Appointment(s):08/21/2018 3:15 pm - Jeimy Woodall M.D. at [facility]05/29/2018 3:00 pm - Jeimy Woodall M.D. at [facility]03/03/2018 - [facility] Elliott M.D., [facility], BKTRFH47.0 Paroxysmal atrial fibrillationComments:As discussed, I feel your heart and aorta are stable. Please elevate your legs as much as possible.Follow up:one year after echoI77.810 Thoracic aortic ectasiaNew Orders:Echocardiogram
--- OUTSIDE RECORDS SUMMARY | 2018-03-24 15:57 | XMS REPORT ---
:1940 External Reference #:[id number] Author Organization [employer] Address [address] [place] [address] [place] [address] Phone [phone] Care Team Providers Name Role Phone Jeni Schwartz M.D. Primary Care Physician Unavailable Payers Type Date Identification Numbers Payment Provider Subscriber Medicare Primary Policy Number: [id number] Medicare Juju Dewitt SR Group Name: Retired [address] PayID: [id number] JUDY Coulter [id number] [facility] Number: [id number] [facility] Juju Dewitt SR Group Number: [id number] [address] Group Name: [place] [address] PayID: [id number] Problems Date Description Provider Status Onset: 04/19/2014 Obstructive sleep apnea of Pricila Altamirano DNP RN, Active adult MAP PLOTTER-BC Onset: 07/08/2014 Obstructive sleep apnea Samantha Shipley MD Active syndrome Onset: 07/08/2014 Obesity Samantha Shipley MD Active Onset: 02/08/2015 Thoracic Aortic Ectasia Zuhair Elliott M.D., [facility], Active [facility] Onset: 03/29/2015 Restless legs Jeimy [...] Paroxysmal atrial fibrillation Zuhair Elliott M.D., Active [facility] Onset: 10/21/2016 Mild cognitive disorder Jeimy Woodall [...] Strength Qnty SIG Indications Ordering Provider Carbidopa-Levodopa 01/15 Active Tablets 25-100mg 135ta 1.5 tabs by G20 Jeimy bs mouth, 30 Cowdery, min before M.D. meals, three times a day. Semi-Electric 12/24 Active Misc 1unit for daily [facility] Bed /2017 s use at home Too Woodall Acetaminophen 10/28 Active Tablets 325mg 60tab 2 tablets s by mouth [place], every 6 [employer] hours as needed for pain/fever Cymbalta 10/[address] 60mg 30cap 1 by mouth F33.9 Part s every day [place] Diphenhydramine-Ac 10/28 Active 25-500 1 tab Po Kristin etaminophen prn at hs Twyla, TURNER Colace 10/28 Active Capsules 100mg 90cap 1 tab by s mouth bid [place] Methylcellulose 10/28 Active 1 tab PO qd K59.00 Kristin Tablet prn [place] Vitamin D3 10/28 Active Tablets 5000Unit 90tab take 1 tab E55.9 s by mouth [place], daily [employer]IVER Walker Parker 05/13 Active Misc 1-07/14" 1unit Use as Shiela Wheels/ s directed. Robbie, Trupti dx: lewis SAL M.D. Holes/-07/14" Commode Bedside 05/13 Active Misc 1unit Use as s directed Robbie, dx: lewis SAL M.D. Raised Toilet Seat 04/28 Active Misc 1unit use after M25.551 s right total Robbie, hip M.DNunu arthroplast y Propafenone HCL ER 07/28 Active Caps ER 425mg 180ca one tab by Zuhair 12HR ps mouth every Brownlee 12 hours Too Elliott, [facility] Metoprolol 01/25 Active Tablets 100mg 90tab 1 by mouth I10 Zuhair Succinate ER 24HR s every day Kem Elliott M.D., [facility] Pradaxa 12/14 Active Capsules 150mg 180ca 1 cap by Zuhair ps mouth twice Brownlee a day Too Elliott, [facility] Depakote ER 11/12 Active Tablets 500mg 90tab take 3 ER 24HR s tablets by Cowdery, mouth every M.D. night at bedtime Amlodipine Active Tablets 10mg 90tab 1 by mouth Unknown Besylate /0000 s every day Ascorbic Acid Active Tablets 500mg 30tab 1 by mouth Unknown /0000 s every day Allopurinol Active Tablets 100mg give 200 mg Unknown /0000 PO bid Timolol Maleate Active Solution 0.5% 1 gtt right Unknown /0000 eye Q hs Prednisone Active Tablets 5mg one tab by Unknown /0000 mouth daily Tramadol HCL Active Tablets 50mg 1 tablets Unknown /0000 by mouth every 6 hours as needed pain Bacitracin Active Ointment 500Unit/G apply to Unknown (External) /0000 M affected areas twice a day x 10 days Lactobacillus Active Tablets 1 by mouth Unknown /0000 twice daily Carbidopa-Levodopa 10/28 Hx Tablets 10-100mg 90tab tab 1 by G20 s mouth three Cowdery, - times a day M.D. 01/15 Bactrim DS 04/29 Hx Tablets 800-160mg 6tabs take 1 by mouth twice Robbie, - a day for 3 M.D. Levetiracetam 01/22 Hx Tablets 500mg 120ta take 1 by G40.209 bs mouth at [facility], - night x 2 M.D. 04/08 weeks; 1 twice a day x 2 weeks; then 1 in am and 1 in pm x 2 weeks; then 2 tabs 2x a day Potassium Chloride 05/14 Hx Tablets 20Meq 270ta 3 tabs by Zuhair ER bs mouth every - , 10/28 M.D., FACC, ELLEN Potassium Chloride 05/13 Hx Tablets 20Meq 240ta 3 tabs by Zuhair ER ER bs mouth every - , 05/13 M.D. FACC, ELLEN Lortab 07/28 Hx Tablets 5-325mg 60tab 1 or 2 M25.561 s tablets q8 Robbie, - hours as M.D. 03/14 needed Carbidopa-Levodopa 12/08 Hx Tablets 25-100mg 405ta take 1.5 G20 bs tablet by [facility], - mouth 20 M.D. prior to breakfast, lunch and dinner Metoprolol 01/25 Hx Tablets 25mg 90tab 1 by mouth Zuhair Succinate ER 24HR s every day Brownlee - along with , 10/28 a 100mg tab M.D., FACC, ELLEN Metoprolol 01/21 Hx Tablets 125mg 1 by mouth Zuhair Succinate ER 24HR every day Brownlee - , 01/25 M.D. FACC, ELLEN Rythmol SR 02/15 Hx Caps ER 325mg 180ca 1 cap by Zuhair 12HR ps mouth twice Brownlee - a day Elliott, 02/15 M.D. FACC, ELLEN Rythmol SR 02/15 Hx Caps ER 425mg 180ca one tablet Zuhair 12HR ps by mouth Brownlee - every [...] Caps ER 325mg 180ca 1 po bid 12HR ps Kem Elliott, 02/15 M.D., FACC, ELLEN Magnesium 05/14 Hx Tablets 200mg 30tab 1 po qd Zuhair s Kem Elliott, 11/08 M.D., FACC, ELLEN Klor-Con M20 05/14 Hx Tablets 20Meq 270ta 3 tabs by Zuhair ER bs mouth every , 07/27 M.D., FACC, ELLEN Rythmol SR 04/20 Hx Caps ER 225mg 180ca 1 po bid 12HR ps Kem Elliott, 05/21 M.D., FACC, ELLEN Klor-Con M20 04/08 Hx Tablets 20Meq 180ta 2 Tabs PO ER bs Daily Kem Elliott, 05/14 M.D., FAC, ELLEN Cholestyramine Hx Packet 4gm 1 packet [...] - mouth once 10/28 Nystatin-Triamcino Hx Ointment 965462-2. apply to Unknown lone /0000 1Unit/GM- affected - % area On The 03/07 Skin twice /2016 a day Cholestyramine Hx Packet 4gm 2x a day Unknown /0000 - 10/28 Lactobacillus Hx Capsules 1 tab by Unknown Extra Strength /0000 mouth bid - 12/18 Nystatin Hx Powder [id number] topical Unknown /0000 t/GM twice a day [...] Millicuries Vital Signs Date Vital Result Comment 02/26/2018 Height 64 inches 5'4" Weight 236.00 [...] 13 Urine Appearance Cloudy 13 Urine Specific [place] 1.027 1.010-1.030 13 Urine pH 5.0 5-9 [...] 59.3 >60 Egfr 76.3 >60 49 1 [id number] [facility], Room Number 109P 2 Acute inflammation: >10.00 3 [id number] [facility], Room Number 109P 4 [id number] [facility], Room Number 109P 5 REFERENCE VALUE <=1.0 (Negative) 6 REFERENCE VALUE <20.0 (Negative) 7 Tests for antibodies to dsDNA and ZAKIA antigens are not performed automatically unless the JUNI result is > or= 3.0 U. Studies performed at [facility] indicate that positive JUNI results <3.0 U are rarely accompanied by positive second order tests. Test Performed by: [facility] - [address] [address] 8 Performed by [facility], [address] [place] [address] [email or web address], Axel Bush MD - Lab. Director Test Performed by: [facility] [address] [place] [address] 9 REFERENCE VALUE Not Applicable 10 RESULT: HLA-B27 antigen was not detected. ADDITIONAL INFORMATION Method: Flow Cytometry Performing Laboratory CLIA# [id number] Test Performed by: [address] [address] 11 No evidence of antibodies to B. burgdorferi detected. False negative results may occur in recently infected patients (<=2 weeks) due to low or undetectable antibody levels to B. burgdorferi. If recent exposure is suspected, a second sample should be collected and tested in 2-4 weeks. Test Performed by: [facility] - [facility] [address] [place] [address] 12 ORDERED 04/12/17 EXPIRES 10/11/17 DRAW IN [...] (or dialysis) 15 SEE RESULT BELOW Name: JUJU DEWITT SR : [address]: Shiela Avalos MD Acct: [id number] Unit: [id number] AGE: 77 Location: [facility] Re04/28/17 SEX: M Status: REG REF SPEC: [id number] DALE: 04/28/[address]: Shiela Avalos MD REQ: [id number] RECD: 04/28/17 STATUS: COMP DR: Zuhair Woodall MD _ SOURCE: URINE SPDESC: ORDERED: Urine Culture COMMENTS: YELENA 05/15 QUERIES: Urine Source: Clean Catch Procedure Result Reported Site Urine Culture Final 04/30/17- 0823 ML Organism 1 ENTEROCOCCUS FAECALIS Mobile Count >100,000 (Many) CFU/ML 1. ENTEROCOCCUS FAECALIS [...] performed at Main Lab DEPARTMENT OF PATHOLOGY, [address] [place] [address] Héctor Block M.D. Director [facility] # [id number] Patient: JUJU DEWITT SR [id number] (Continued) Specimen: [id number] Collected: 04/28/17 Received: 04/28/17 (Continued) Procedure Result Reported Site Urine Culture Final (continued) * These antibiotics are not available in the [facility] Formulary Contact the Microbiology Department for any additional antibiotic reporting. * ML - MAIN LAB ([facility]) . END OF REPORT * ML=Testing performed at Main Lab DEPARTMENT OF PATHOLOGY, [address] [place] [address] Héctor Block M.D. Director [facility] # [id number] 16 *Ascorbic acid is present which may [...] of medication Copy Result to: JENI SCHWARTZ ([id number]) 25 Because ethnic data is not always [...] Serum levels of PSA measured using the [employer] DXI Hybritech immunoassay should not be interpreted [...] dialysis) Procedures Date CPT Code Description Status 02/25/2018 69676 ECHO Transthoracic, Real-Time 2D With Doppler And Color Completed Flow 05/16/2017 53228 EKG, Interpretation Only Completed 05/15/2017 02437 THR Total Hip Replacement Completed 05/15/2017 90362 THR Total Hip Replacement Completed 04/30/2017 79878 EKG Tracing & Interpretation Completed 04/21/2017 18575 Stress Test Completed 04/21/2017 91743 Myocardial Perfusion Imaging Tomographic (Spect) Completed Multiple Studies 03/03/2017 42639 EKG Tracing & Interpretation Completed 02/05/2017 82551 ECHO Transthoracic, Real-Time 2D With Doppler And Color Completed Flow 03/05/2016 93047 EKG Tracing & Interpretation Completed 01/31/2016 01551 ECHO Transthoracic, Real-Time 2D With Doppler And Color Completed Flow 02/08/2015 69125 EKG Tracing & Interpretation Completed 01/23/2015 06078 ECHO Transthoracic, Real-Time 2D With Doppler And Color Completed Flow 01/21/2014 34687 EKG Tracing & Interpretation Completed 12/30/2013 41897 ECHO Transthoracic, Real-Time 2D With Doppler And Color Completed Flow 03/22/2013 33756 EKG Tracing & Interpretation Completed 02/17/2013 75151 Cardioversion Completed 02/17/2013 02344 EKG Tracing & Interpretation Completed 02/17/2013 42793 EKG Tracing & Interpretation Completed 02/17/2013 91991 EKG, Interpretation Only Completed 12/18/2012 99299 ECHO Transthoracic, Real-Time 2D With Doppler And Color Completed Flow 07/23/2012 44116 EKG Tracing & Interpretation Completed 05/21/2012 12005 EKG Tracing & Interpretation Completed 05/13/2012 00510 EKG, Interpretation Only Completed 05/13/2012 71679 EKG Tracing & Interpretation Completed 05/13/2012 50064 Cardioversion Completed 04/27/2012 58621 EKG Tracing & Interpretation Completed 03/03/2012 84020 Polysomnography Sleep Staging 4+ Parameters W/Cpap Completed 01/16/2012 37650 Polysomnography Sleep Staging 4+ Parameters W/Cpap Completed 12/23/2011 60591 Polysomnography Sleep Staging 4+ Parameters Completed 12/23/2011 59621 Polysomnography Sleep Staging 4+ Parameters Completed 08/14/2009 40837 EKG, Interpretation Only Completed 08/14/2009 48384 Insert Non-Tunneled Venous Catether Completed Encounters Type Date Location Provider CPT E/M Dx Office Visit 02/26/2018 [facility] Jeimy Woodall M.D. 87201 G40.909 1:00p [facility] G20 M25.50 Office Visit 02/01/2018 1:57p [facility],anthony Dickens 55384 M54.5 Hospitalists MD [place] R09.02 G47.33 Office Visit 01/31/2018 1:56p [facility],anthony Dickens 47296 M54.5 Nicolas Childress MD R09.02 Office Visit 01/31/2018 7:00a Neurosurgery Services Carmen Buenrostro PA-C 32367 M48.061 [facility] M51.36 Office Visit 01/30/2018 1:56p [facility],anthony Dickens 58539 M54.5 Nicolas Childress MD R09.02 Office Visit 01/29/2018 1:55p [facility],anthony Dickens 36600 M54.5 Nicolas Childress MD R09.02 Office Visit 01/29/2018 7:00a [facility] [address] G20 M51.36 Office Visit 01/28/2018 7:00a [facility] [address] G20 M51.36 R79.82 Office Visit 01/28/2018 1:55p [facility],pc Klever Cintron, 79958 M54.5 Hospitalists Too R09.02 Office Visit 01/27/2018 7:00a [facility] [address] G20 M51.36 G62.9 Office Visit 01/27/2018 1:55p [facility],pc Klever Cintron, 51177 M54.5 Hospitalists Too R09.02 Office Visit 12/29/2017 11:16a [facility], Chip Gaffney 57175 M25.521 Hospitalists Too M25.571 Office Visit 12/28/2017 11[facility] 26541 M25.521 Assoc, Nicolas BENAVIDES M.D. M25.571 Office Visit 12/19/2017 1:45p [facility] Jeimy Woodall M.D. 54968 G20 [facility] F03.90 G40.909 Office Visit 12/01/2017 8:45a [facility] Kristin Wakefield, TURNER [address]77 G20 R60.0 I10 M10.9 S81.802D Z96.641 I48.0 G40.89 Office Visit 11/21/2017 9:15a [facility] Mateusz TrinhONunu 72114 G20 I48.0 M10.9 S81.802D Office Visit 10/24/2017 10:00a Rheumatology Services Of Alejandro Holland, 08715 M10.9 Delma Gage M10.031 M25.571 M06.4 Office Visit 10/09/2017 11:30a [facility] Sol Trinh.ONunu 19460 G20 Z96.641 M10.031 I48.0 Office Visit 08/22/2017 8:15a [facility] Kristin Wakefield, TURNER 57694 G20 R60.0 R19.5 Z96.641 Office Visit 08/20/2017 8:30a [facility] [place] [address] R60.0 M25.531 M25.572 M25.571 Office Visit 08/18/2017 8:30a Prashant [place], [employer] M[employer] TRUCK DRIVER 13669 M10.031 L03.116 Office Visit 07/28/2017 8:00a Prashant Wakefield, [employer] M[employer] TRUCK DRIVER 42989 M25.531 R60.0 Office Visit 07/23/2017 8:15a Prashant Nunez, [employer] M[employer] TRUCK DRIVER 68072 M10.031 Office Visit 07/22/2017 9:00a Prashant Nunez, READ[employer] M[employer] TRUCK DRIVER 68019 M25.531 Office Visit 07/17/2017 11:30a Prashant Nunez, [employer] M[employer] TRUCK DRIVER 76170 R60.0 Office Visit 07/08/2017 8:30a Prashant Nunez, READ[employer] M[employer] TRUCK DRIVER 67905 K62.5 Office Visit 06/28/2017 9:15a [facility] Svitlana Mae M.D. 81173 M10.031 M10.071 R60.0 Z96.641 Office Visit 06/11/2017 8:45a Prashant [place], [employer] M[employer] TRUCK DRIVER 90849 M25.531 Office Visit 06/03/2017 8:15a [facility] Citlaly Riley D.O. 15276 I48.0 G20 I10 G47.33 Z96.641 Office Visit 05/30/2017 8:00a Prashant [place], [employer] M[employer] TRUCK DRIVER 79982 R60.0 M25.531 Z96.641 Office Visit 05/26/2017 12:40p [facility] Moe Kiser, 58748 N17.9 Assoc,pc PA Hospitalists I48.0 Z96.641 G20 Office Visit 05/25/2017 12:39p [facility],pc Savana Alba N.P. 88020 N17.9 Hospitalists I48.0 Z96.641 G20 Office Visit 05/24/2017 12:38p [facility],pc Savana Alba N.P. 71524 N17.9 Hospitalists I48.0 Z96.641 G20 Office Visit 05/23/2017 12:38p [facility],anthony Alba N.P. 61539 N17.9 Hospitalists I48.0 Z96.641 G20 Office Visit 05/22/2017 12:37p [facility],pc Savana Alba N.P. 17379 N17.9 Hospitalists I48.0 Z96.641 G20 Office Visit 05/22/2017 2:04p [facility] Adams Orta 23209 G93.40 Too Cesar Office Visit 05/21/2017 12:36p [facility],pc Stepan Villasenor, 75494 Z96.641 Hospitalists PA G20 I48.0 N17.9 Office Visit 05/20/2017 10:16a [facility],SARAH De La Vega 77664 G20 Hospitalists I48.0 N17.9 Z96.641 Office Visit 05/19/2017 10:15a [facility],SARAH D eLa Vega 50834 G20 Hospitalists I48.0 N17.9 Z96.641 Office Visit 05/18/2017 10:14a [facility],SARAH De La Vega 02807 G20 Hospitalists I48.0 N17.9 Z96.641 Office Visit 05/18/2017 9:49a [facility] [place] Orta 21807 G93.40 Too Cesar Office Visit 05/17/2017 10:13a [facility], Stepan Villasenor, 05206 G20 Hospitalists PA I48.0 N17.9 Z96.641 Office Visit 05/16/2017 10:13a [facility], SARAH Ramirez 60294 G20 Hospitalists I48.0 N17.9 Office Visit 05/15/2017 10:11a [facility] Moe Kiser, 27144 G20 Assoc, PA Hospitalists I48.0 G40.909 Z96.641 Office Visit 04/30/2017 11:30a [facility] Of Zuhair Elliott, 03303 I48.0 Delma Gage, [facility] M16.11 Z01.810 Office Visit 04/09/2017 3:00p [facility] Jeimy Woodall M.D. 36740 G40.209 [facility] G20 Office Visit 03/24/2017 2:00p Orthopedic Services Of Shiela Avalos M.D. 81552 M25.551 C.M.A. M16.11 Office Visit 03/03/2017 1:15p [facility] Of Zuhair Elliott, 13401 I48.0 Delma Gage, [facility] Office Visit 01/22/2017 2:30p [facility] Jeimy Woodall M.D. 87494 G20 Services Of Banquet Waiter/Waitress G25.81 G40.209 G31.84 Office Visit 12/06/2016 10:15a [facility]opedic Services Of Shiela Avalos M.D. 99354 M16.11 C.M.ANunu M25.551 Office Visit 10/21/2016 2:00p [facility] Jeimy Woodall M.D. 11389 G20 Services Of Banquet Waiter/Waitress G25.81 G40.209 Office Visit 06/20/2016 2:30p [facility] Jeimy Woodall M.D. 06352 G20 Services Of Banquet Waiter/Waitress G25.81 G40.209 Z79.899 Office Visit 03/05/2016 2:00p [facility] Of Zuhair Elliott, 29487 I48.0 Delma Gage, [facility] Office Visit 10/19/2015 3:15p Pul[facility] [address] G47.33 Services Of [employer]quet Waiter/Waitress E66.01 Office Visit 10/04/2015 11:00a [facility] Jeimy Woodall M.D. 08895 G20 Services Of Banquet Waiter/Waitress G25.81 G40.209 F32.9 Office Visit 08/28/2015 1:00p Orthopedic Services Of Shiela Avalos M.D. 48133 M16.11 C.M.A. M25.551 M25.512 Office Visit 07/28/2015 10:30a [facility] Of Shiela Avalos M.D. 21752 M25.561 C.M.A. M25.551 M16.11 M25.461 Office Visit 03/29/2015 11:45a [facility] Jeimy Woodall M.D. 99982 G25.81 Services Of Banquet Waiter/Waitress G20 G40.009 Z79.899 Office Visit 02/28/2015 10:45a [facility] [place] [address] 327.23 Services Of Banquet Waiter/Waitress 278.00 Office Visit 02/08/2015 10:30a [facility] Of Zuhairtran Elliott, 63445 447.71 Delma Gage, FACC, FASNC 401.9 Office Visit 12/08/2014 11:45a [facility] Jeimy Woodall M.D. 41248 345.40 Services Of Ban[facility] Waiter/Waitress 332.0 333.94 Office Visit 10/10/2014 2:45p [facility] Jeimy Woodall M.D. 65949 345.40 Services Of Banquet Waiter/Waitress 333.1 332.0 Office Visit 07/08/2014 10:45a [facility] [place] [address] 327.23 Services Of Banquet Waiter/Waitress 278.00 Office Visit 05/18/2014 11:00a [facility] Jeimy Woodall M.D. 84615 345.40 Services Of Banquet Waiter/Waitress 333.1 Office Visit 04/19/2014 1:30p [facility] Pricila Altamirano 59144 327.23 [facility] TERE, RN, MAP PLOTTER- Office Visit 01/21/2014 10:45a [facility] Of Zuhairtran Elliott, 71296 427.31 Delma Gage, FACC, FASGA Office Visit 11/10/2013 11:00a [facility] Jeimy Woodall M.D. 45110 345.40 Services Of Banquet Waiter/Waitress 333.1 780.79 Office Visit 03/22/2013 9:45a [facility] Of Zuhairtran Elliott, 73382 427.32 Delma Gage, FACC, FASNC Office Visit 02/17/2013 12:39p [facility] Of Zuhairtran Elliott, 10409 427.32 Delma Gage, FACC, FASNC Office Visit 12/28/2012 10:30a [facility] Zuhair Kem Elliott, 12752 441.2 Delma Gage, FACC, FASNC Office Visit 11/12/2012 11:30a [facility] Jeimy Woodall 78659 345.40 Services Of Delma Gage Office Visit 07/23/2012 11:30a [facility] Zuhair Kem Elliott, 50918 785.1 Delma Gage, [facility] 427.31 Office Visit 05/21/2012 10:30a [facility] Of Zuhair Brownlee Elliott, 28482 427.31 Banquet Waiter/Waitress Too, [facility] Office Visit 05/13/2012 9:23a [facility] Zuhair Kem Elliott, 85791 427.81 Banquet Waiter/Waitress Too, [facility] Office Visit 03/10/2012 9:54a [facility] Chip Cabrera, 64968 327.23 Beaumont M.D. Office Visit 01/27/2012 11:28a [facility] Chip Cabrera, 56309 327.23 Beaumont M.D. Office Visit 01/15/2012 11:25a [facility] Chip Cabrera, 94778 327.23 Beaumont M.D. Office Visit 08/19/2009 2:45a [facility], Clarita Ocampo, 05853 274.9 Hospitalists M.D. 715.90 Office Visit 08/18/2009 3:30a [facility], Clarita Ocampo, 96851 274.9 Hospitalists M.D. Office Visit 08/17/2009 12:45a [facility], Corey Barron, 96086 585.6 Hospitalists M.D. 575.0 285.9 401.9 Office Visit 08/16/2009 12:30a [facility], Zaki Zepeda D.O. 83955 585.6 Hospitalists 575.0 285.9 401.9 Office Visit 08/15/2009 12:30a [facility], Zaki Zepeda D.O. 64513 575.0 Hospitalists 458.9 276.2 285.9 518.0 Office Visit 08/14/2009 2:15a [facility], Zaki Zepeda D.O. 70202 575.0 Hospitalists 518.81 584.9 458.9 285.9 345.90 278.00 Plan of Care Future Appointment(s):03/03/2018 1:45 pm - Zuhair Elliott M.D., [facility], [facility] at [facility]08/21/2018 3:15 pm - Jeimy Woodall M.D. at [facility]05/29/2018 3:00 pm - Jeimy Woodall M.D. at [facility]02/26/2018 - Jeimy Woodall M.D.G40.909 Epilepsy, unsp , not intractable, without status epilepticusFollow up:keep follow up in May as scheduled.G20 Parkinson's vggxcvlR20.50 Pain in unspecified jointComments:Our records and patient's son indicate patient was on allopurinol 100mg taking two tablets twice a day. [facility] 100[facility] one tablet twice a day. Perhaps this contributed to the recent joint pain and swelling?Note: med list above has yet to be adjusted. Son will call with clarification after discharge from [facility]
--- NOTE | 2018-03-24 16:26 | RAD ---
HISTORY: WAGNER s/p fall COMPARISONS: November 27, 2017 TECHNIQUE: Multiple contiguous axial CT scans were obtained of the head without intravenous contrast. FINDINGS: HEMORRHAGE/INFARCT: There is no hemorrhage or acute infarct. MASSES/SHIFT: There is no mass or shift. EXTRA-AXIAL SPACES: There are no extra-axial fluid collections. SULCI AND VENTRICLES: The sulci and ventricles are normal in size and position for the patient's stated age. CEREBRUM: There are no focal parenchymal abnormalities. BRAINSTEM: There are no focal parenchymal abnormalities. CEREBELLUM: There are no focal parenchymal abnormalities. VESSELS: The vessels are grossly normal. PARANASAL SINUSES: The paranasal sinuses are clear. 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 BONES AND SOFT TISSUE: No bone or soft tissue abnormalities are noted. OTHER: None IMPRESSION: NO ACUTE INTRACRANIAL PATHOLOGY.
--- NOTE | 2018-03-24 16:31 | RAD ---
HISTORY: Neck pain, fall COMPARISONS: None TECHNIQUE: Multiple contiguous axial CT scans were obtained of the cervical spine without intravenous contrast, with coronal and sagittal multiplanar reformations. FINDINGS: BRAIN: The visualized brain is unremarkable CENTRAL CANAL: Evaluation of the central canal is limited on CT technique, however there is no obvious canalicular mass or epidural hemorrhage. ALIGNMENT: The alignment is normal, without subluxation or dislocation. VERTEBRAL BODIES: There is diffuse osteopenia. Is multilevel anterolateral marginal osteophyte formation. There is no displaced fracture. JOINTS: There is multilevel uncovertebral and facet osteoarthritic change. There is no subluxation or dislocation. MUSCULATURE: Unremarkable INTERVERTEBRAL DISCS: There is diffuse loss of intervertebral disc height. AXIAL IMAGES: There is multilevel degenerative disc disease and osteoarthritis. There is multilevel neuroforaminal narrowing. There is no osseous central canal stenosis.. SOFT TISSUES: The visualized soft tissues of the neck are unremarkable. The prevertebral fat stripe is preserved. OTHER: None. IMPRESSION: OSTEOPENIA. DEGENERATIVE DISC DISEASE AND OSTEOARTHRITIS. NO ACUTE OSSEOUS INJURY TO THE CERVICAL SPINE.
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
--- NOTE | 2018-03-24 16:59 | RAD ---
HISTORY: back pain COMPARISONS: CT dated January 27, 2018 VIEWS: 2 , Frontal and lateral views of the lumbar spine FINDINGS: ALIGNMENT: The alignment is normal. VERTEBRAL BODIES: There is diffuse osteopenia. There is multilevel anterolateral marginal osteophyte formation. The vertebral bodies are stable in height and appearance compared to the January 27, 2018 examination. JOINTS: There is diffuse facet osteoarthritis. INTERVERTEBRAL DISCS: There is diffuse loss of intervertebral disc height. SOFT TISSUE: Unremarkable. OTHER: The pelvis is unremarkable. The lung bases are clear. IMPRESSION: OSTEOPENIA. DEGENERATIVE DISC DISEASE AND OSTEOARTHRITIS.
[2018-03-24 17:53] VITALS: BP 103/50
== END 2018-03-24 17:51 | disposition home or self-care (01) ==
LOC: ED 14:38
DX: S00.03XA Contusion of scalp, initial encounter (principal); W19.XXXA Unspecified fall, initial encounter; Y92.9 Unspecified place or not applicable; G20 Parkinson's disease; F02.80 Dementia in other diseases classified elsewhere, unspecified severity, without behavioral disturbance, psychotic disturbance, mood disturbance, and anxiety; I48.91 Unspecified atrial fibrillation; I10 Essential (primary) hypertension; M85.88 Other specified disorders of bone density and structure, other site; M50.30 Other cervical disc degeneration, unspecified cervical region; M47.812 Spondylosis without myelopathy or radiculopathy, cervical region; M47.816 Spondylosis without myelopathy or radiculopathy, lumbar region; Z79.01 Long term (current) use of anticoagulants; Z79.899 Other long term (current) drug therapy; Z88.0 Allergy status to penicillin
CPT/HCPCS: 70450; 72100; 72125; 99283

== ENCOUNTER 2019-02-11 20:25 | Inpatient (IN) | payer MEDICARE, BC ==
--- OUTSIDE RECORDS SUMMARY | 2019-02-11 20:34 | XMS REPORT | Continuity of Care Document ---
:1940 External Reference #:[id number] Author Name CalvinAamir shelbyley Care Team Providers Name Role Phone Jeni Schwartz M.D. Primary Care Physician Unavailable Payers Date Identification Numbers Payment Provider Subscriber Policy Number: [id number] Medicare Juju Dewitt SR Group Name: Retired [address] PayID: [id number] [place] [address] Policy Number: [id number] [facility] Juju Dewitt SR Group Number: [id number] [address] Group Name: [place] [address] PayID: [id number] Advance Directives Type Date Description Status Comment MOL 05/26/2017 [facility] Current and Verified Problems Active Problems Provider Date Obstructive sleep apnea of adult Pricila Altamirano DNP, RN, [employer]IN [employer]IVER- Onset: Obstructive sleep apnea syndrome Samantha Shipley MD Onset: 07/08/2014 Obesity Samantha Shipley MD Onset: 07/08/2014 Thoracic Aortic Ectasia Zuhair Elliott M.D., [facility], Onset: 02/08/2015 FASNC Restless legs Jeimy Woodall M.D. Onset: 03/29/2015 Parkinson's disease Jeimy Woodall M.D. Onset: 03/29/2015 Note: ideopathic vs. medication side effect Localization-related epilepsy Jeimy Woodall M.D. Onset: 03/29/2015 Localized, primary osteoarthritis of the Shielaroger Avalos M.D. Onset: 07/28/2015 pelvic region and thigh Morbid obesity Samantha Shipley MD Onset: 10/19/2015 Paroxysmal atrial fibrillation Zuhair Elliott M.D., Onset: 03/05/2016 ELLEN SALAZAR Mild cognitive disorder Jeimy Woodall M.D. Onset: 10/21/2016 Note: MoCA: October 2016: (of note, admits to baseline difficulty with math); 12/22: 15 Closed fracture of midcervical section of femur Robert Ramirez MD Onset: 05/2019 Family History Date Family Member(s) Observation Comments General Prostate Cancer Mother ; pt not sure of what Social History Type Date Description Comments Sex Unknown Marital Status Lives With Occupation Retired ETOH Use Denies alcohol use Tobacco Use Start: Unknown End: Patient is a former smoked a pipe when Unknown smoker he was 15 yrs old, for one year Recreational Drug Use Denies Drug Use Smoking Status Reviewed: 01/12/19 Patient is a former smoked a pipe when smoker he was 15 yrs old, for one year Exercise Type/Frequency Exercises regularly Physical therapy, along with home exercises Allergies, Adverse Reactions, Alerts Active Allergies Reaction Severity Comments Date Penicillin 11/10/2013 Medications Active Medications SIG Qnty Indications Ordering Provider Date Prednisone take 6 tablets 120tabs M35.3 Becki Mccoy, 01/28/2019 1mg Tablets by mouth for 4 [employer] 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 2 weeks, then 1 by mouth each day x 2 weeks, then 2 by mouth every day. Propafenone HCL ER 2 tabs twice a Zuhair Elliott, 01/06/2019 225mg Caps day M.D., ELLEN SALAZAR ER 12HR Trazodone HCL 1/2 by mouth 30tabs Robert Ramirez MD 11/02/2018 50mg Tablets every day Methotrexate take 3 36tabs M35.3 DANIEL Javier 06/22/2018 2.5mg Tablets capsules/tablets by mouth once weekly Z79.899 Folic Acid take one 90tabs Alejandro Greenr, 06/22/2018 1mg Tablets capsule/tablet daily M.D. by mouth Caltrate 600+D take one 60tabs M35.3 Alejandro Larsondor, 06/22/2018 capsule/tablet by M.DNunu [id number] mouth twice daily Tablets Flomax 1 by mouth every day Unknown 02/14/2018 0.4mg Capsules Oxygen please use o2 at Unknown 02/13/2018 [facility] 2l/min at bedtime Carbidopa-Levodopa 1.5 tabs by mouth, 30 135tabs G20 Jeimy Woodall, 2017 min before meals, M.D. 25-100mg Tablets three times a day. Semi-Electric for daily use at home 1units Jeimy Woodall, 12/24/2017 Hospital Bed M.DNunu [facility] Acetaminophen 2 tablets by mouth 60tabs [facility] 10/28/2017 325mg every 6 hours as [place] Tablets needed for pain/fever Cymbalta 1 by mouth every day 30caps F33.9 [facility] 10/28/[address] Twyla NP Part Walker Coram Wheels/5 Use as directed. dx: r 1unadwoa Avalos, 2016 Adjustment DORON Gage Holes/-07/14" -07/14" [facility] Commode Bedside Use as directed dx: r 1unadwoa Avalos, 05/13/2017 [facility] DORON Too Raised Toilet Seat use after right total 1units M25.551 Shiela Avalos, hip arthroplasty M.DNunu [facility] Pradaxa 1 cap by mouth twice a 180caps Zuhair Kem 12/14/2012 150mg Capsules day Too Elliott, [facility] Depakote ER take 3 tablets by 90tabs Jeimy Woodall, 11/12/2012 500mg mouth every night at M.D. Tablets ER 24HR bedtime Lisinopril 1 by mouth every day Unknown 2.5mg Tablets Furosemide 1 by mouth every day Unknown 20mg Tablets Ranitidine 150 one by mouth twice a Unknown Maximum Strength day as needed with 150mg prednisone Tablets Metoprolol Succinate 1 tab by mouth every Unknown ER day 50mg Tablets ER 24HR Timolol Maleate 1 gtt right eye Q hs Unknown 0.5% Solution Allopurinol 100 MG daily Unknown 100mg Tablets History Medications Prednisone take two tablets 360tabs Alejandro 08/10/2018 - 1mg Tablets by mouth once Too [place] 01/28/2019 daily in addition to 5mg prednisone, taper by 1 mg every month Prednisone Take one 90tabs Alejandro 06/22/2018 - 5mg Tablets capsule/tablet Too [place] 01/28/2019 daily by mouth Hydrocodone-Acetaminophen 1 tablet po every Unknown 02/17/2018 - 4 hours as needed 06/22/2018 5-325mg pain Duloxetine HCL 1 by mouth every Unknown 02/14/2018 - 30mg Caps DR day ( Given at 06/22/2018 Part [facility] as of 02/14/18) Potassium Chloride ER 1 by mouth every Unknown 02/14/2018 - 10Meq day 01/05/2019 Tablets ER Torsemide 1 by mouth every Unknown 02/14/2018 - 20mg Tablets day 06/22/2018 Gabapentin 2 cap po twice Unknown 02/13/2018 - 100mg Capsules daily 06/22/2018 Carbidopa-Levodopa tab 1 by mouth 90tabs G20 Jeimy 10/28/2017 - 10-100mg three times a day Too Woodall 01/15/2018 Tablets Diphenhydramine-Acetamino 1 tab Po prn at hs [facility] 10/28/2017 - phen [place] 06/22/2018 25-500 Colace 1 tab by mouth bid 90caps [facility] 10/28/2017 - 100mg Capsules (as needed_ [place] 08/06/2018 Methylcellulose Tablet 1 tab PO qd prn K59.00 [facility] 10/28/2017 - [place] 06/22/2018 Vitamin D3 take 1 tab by 90tabs E55.9 [facility] 10/28/2017 - 5000Unit Tablets mouth daily [place] 06/22/2018 Bactrim DS take 1 by mouth 6tabs Shiela Avalos 04/29/2017 - 800-160mg Tablets twice a day for 3 M.D. 04/29/2017 days Levetiracetam take 1 by mouth at 120tabs G40.20 Jeimy 01/22/2017 - 500mg Tablets night x 2 weeks; 9 Too Woodall 04/08/2017 then 1 twice a day x 2 weeks; then 1 in am and 1 in pm x 2 weeks; then 2 tabs 2x a day Potassium Chloride ER 3 tabs by mouth 270tabs Zuhair Brownlee 05/14/2016 - 20Meq every day Too Elliott, 10/28/2017 Tablets ER FACC, FASNC Potassium Chloride ER 3 tabs by mouth 240tabs Zuhair Brownlee 05/13/2016 - 20Meq every day Too Elliott, 05/13/2016 Tablets ER FACC, FASNC Propafenone HCL ER one tab by mouth 180caps Zuhair Brownlee 07/28/2015 - 425mg Caps every 12 hours Too Elliott, 01/06/2019 ER 12HR FACC, FASNC Lortab 1 or 2 tablets q8 60tabs M25.56 Shiela Avalos, 07/28/2015 - 5-325mg Tablets hours as needed 1 M.D. 03/14/2017 pain Carbidopa-Levodopa take 1.5 tablet by 405tabs G20 Jeimy 12/08/2014 - 25-100mg mouth 20 minutes Too Woodall 10/28/2017 Tablets prior to breakfast, lunch and dinner Metoprolol Succinate ER 1 by mouth every 90tabs Zuhair Brownlee 01/25/2014 - 25mg day along with tammie Elliott M.D., 10/28/2017 Tablets ER 24HR 100mg tab FACC, ELLEN Metoprolol Succinate ER 1 by mouth every 90tabs I10 Zuhair Brownlee 01/25/2014 - 100mg day Too Elliott, 03/02/2018 Tablets ER 24HR FACC, FASNC Metoprolol Succinate ER 1 by mouth every Zuhair Brownlee 01/21/2014 - 125mg day Too Elliott, 01/25/2014 Tablets ER 24HR FACC, FASNC Rythmol SR 1 cap by mouth 180caps Zuhair Brownlee 02/15/2013 - 325mg Caps ER 12HR twice a day Too Elliott, 02/15/2013 FACC, ELLEN Rythmol SR one tablet by 180caps Zuhair Brownlee 02/15/2013 - 425mg Caps ER 12HR mouth every 12 Too Elliott, 07/27/2015 hours FACC, ELLEN Metoprolol Succinate ER 1 by mouth every 30tabs Zuhair Kem 12/21/2012 - 25mg day along with Too Elliott, 01/21/2014 Tablets ER 24HR 100mg tablet FACC, ELLEN Metoprolol Succinate ER 1 by mouth every 30tabs Zuhair Kem 11/23/2012 - 100mg day Too Elliott, 01/21/2014 Tablets ER 24HR FACC, FASDAVID Rythmol SR 1 po bid 180caps Zuhair Kem 05/21/2012 - 325mg Caps ER 12HR Too Elliott, 02/15/2013 FACC, ELLEN Klor-Con M20 3 tabs by mouth 270tabs Zuhair Kem 05/14/2012 - 20Meq Tablets ER every day Too Elliott, 07/27/2015 FACC, ELLEN Magnesium 1 po qd 30tabs Zuhair Kem 05/14/2012 - 200mg Tablets Too Elliott, 11/08/2013 FACC, FASNC Rythmol SR 1 po bid 180caps Zuhair Kem 04/20/2012 - 225mg Caps ER 12HR Too Elliott, 05/21/2012 FACC, MIGUELNC Klor-Con M20 2 Tabs PO Daily 180tabs Zuhair Kem 04/08/2012 - 20Meq Tablets ER Too Elliott, 05/14/2012 FACC, ELLEN Diflucan one by mouth x 7 Unknown - 100mg Tablets days 11/01/2018 Miralax take 1 packet Unknown - 3350NF Packet daily as needed 11/01/2018 for constipation Bengay Ultra Strength applied to L hip Unknown - 5% topically one time 08/06/2018 Patches a day for left hip pain Baclofen 1 tablet po every Unknown - 5mg Tablets 12 hours as needed 06/22/2018 muscle spasms Lactobacillus 1 by mouth twice Unknown - Tablets daily 06/22/2018 Bacitracin (External) apply to affected Unknown - areas twice a day 08/06/2018 500Unit/GM Ointment x 10 days Nystatin topical twice a Unknown - 723119Pvlk/GM Powder day as needed 02/25/2018 Tramadol HCL 1 tablets by mouth Unknown - 50mg Tablets every 6 hours as 06/22/2018 needed pain Prednisone one tab po daily Unknown - 10mg Tablets for gout taper 06/22/2018 dose Lactobacillus Extra 1 tab by mouth bid Unknown - Strength 12/18/2017 Capsules Cholestyramine 2x a day Unknown - 4gm Packet 10/28/2017 Nystatin-Triamcinolone apply to affected Unknown - area On The Skin 03/07/2017 225516-5.1Unit/GM-% twice a day Ointment Duloxetine HCL take 1 capsule by Unknown - 60mg Caps DR mouth once daily 10/28/2017 Part Potassium Chloride 3 tabs once a day Jeimy - 20Meq/50ML Too Woodall 05/14/2016 Solution Ascorbic Acid 1 by mouth every 30tabs Unknown - 500mg Tablets day 06/22/2018 Combivent 2 puffs by mouth 1units Unknown - 18-103mcg/Act Aerosol twice a day 07/27/2015 Vitamin D High Potency 1 by mouth every Unknown - 1000Unit day 03/04/2016 Capsules Amlodipine Besylate 1 by mouth every 90tabs Unknown - 10mg day 01/11/2019 Tablets Hydrochlorothiazide 1 by mouth every 90tabs Unknown - 25mg day 10/28/2017 Tablets Cholestyramine 1 packet twice a Ric Webster - 4gm Packet day. mixed w juice 10/20/2016 (patient not taking) Medications Administered in Office Medication SIG Qnty Indications Ordering Provider Date Technetium TC 99M Ica Nuclear Schedule 04/23/2017 Tetrofosmin, Per Unit Dose Up To 40 Millicuries Injection Inj, Regadenoson, 0.1 MG Karri Adams, DO FACC 04/21/2017 Injection Technetium TC 99M Karri Adams, DO FAC 04/21/2017 Tetrofosmin, Per Unit Dose Up To 40 Millicuries Injection Immunizations CPT Code Status Date Vaccine Lot # [id number] Given 06/19/2015 Pneumococcal Conjugate Vaccine 13 Valent For Intramuscular Use [id number] Given 06/22/2008 Pneumonia Vaccine Vital Signs Date Vital Result Comment 01/28/2019 9:58am Height 66 inches 5'6" Heart Rate 80 /min BP Systolic 110 mmHg BP Diastolic 56 mmHg Body Temperature 96.9 F O2 % BldC Oximetry 91 % 01/12/2019 1:28pm Height 66 inches 5'6" Heart Rate 67 /min BP Systolic 138 mmHg BP Diastolic 64 mmHg Respiratory Rate 18 /min 01/06/2019 9:54am Height 66 inches 5'6" Weight 230.00 lb Heart Rate 72 /min BP Systolic Sitting 114 mmHg BP Diastolic Sitting 60 mmHg Respiratory Rate 16 /min BMI (Body Mass Index) 37.1 kg/m2 11/02/2018 1:09pm Height 66 inches 5'6" Weight 230.00 lb Heart Rate 68 /min BP Systolic 108 mmHg BP Diastolic 64 mmHg Respiratory Rate 16 /min BMI (Body Mass Index) 37.1 kg/m2 10/30/2018 8:15am BP Systolic Sitting 84 mmHg BP Diastolic Sitting 58 mmHg 10/29/2018 9:34am Height 70 inches 5'10" Weight 230.00 lb Heart Rate 67 /min BP Systolic 91 mmHg BP Diastolic 57 mmHg Body Temperature 96.7 F O2 % BldC Oximetry 92 % BMI (Body Mass Index) 33.0 kg/m2 10/05/2018 11:08am Height 70 inches 5'10" Weight 250.00 lb BP Systolic 102 mmHg BP Diastolic 58 mmHg Body Temperature 98.5 F Pain Level 0 BMI (Body Mass Index) 35.9 kg/m2 08/10/2018 3:34pm Height 70 inches 5'10" Weight 250.25 lb Heart Rate 61 /min BP Systolic 124 mmHg BP Diastolic 70 mmHg Pain Level 0 O2 % BldC Oximetry 96 % BMI (Body Mass Index) 35.9 kg/m2 08/07/2018 2:57pm Height 70 inches 5'10" Weight 250.25 lb Heart Rate 64 /min BP Systolic Sitting 100 mmHg BP Diastolic Sitting 54 mmHg BMI (Body Mass Index) 35.9 kg/m2 07/08/2018 5:51pm Weight 192.00 lb 06/22/2018 3:34pm Height 64 inches 5'4" Weight 224.00 lb Heart Rate 60 /min BP Systolic Sitting 115 mmHg BP Diastolic Sitting 66 mmHg Respiratory Rate 16 /min Pain Level 0 BMI (Body Mass Index) 38.4 kg/m2 03/03/2018 1:14pm Height 64 inches 5'4" Weight 232.00 lb [...] Ejection Fraction 60-65% date 02/25/18 ECHO 02/26/2018 1:18pm Height 64 inches 5'4" Weight 236.00 lb Heart Rate 78 /min BP Systolic 138 mmHg BP Diastolic 78 mmHg Respiratory Rate 18 /min BMI (Body Mass Index) 40.5 kg/m2 10/24/2017 9:40am Height 64 inches 5'4" Heart Rate 62 /min BP Systolic Sitting 128 mmHg BP Diastolic Sitting 78 mmHg Pain Level 0 O2 % BldC Oximetry 91 % 06/02/2017 1:09pm Height 64 inches 5'4" Weight 233.00 lb Heart Rate 68 /min BP Systolic 104 mmHg BP Diastolic 60 mmHg Body Temperature 96.8 F Pain Level 0 BMI (Body Mass Index) 40.0 kg/m2 04/30/2017 11:01am Height 64 inches 5'4" Weight 233.00 lb with shoes Heart Rate 76 /min BP Systolic Sitting 90 mmHg Lue lg cuff BP Diastolic Sitting 60 mmHg Lue lg cuff BP Systolic Standing 90 mmHg Lue lg cuff BP Diastolic Standing 64 mmHg Lue lg cuff BMI (Body Mass Index) 40.0 kg/m2 Ejection Fraction 55-60% date 02/05/17 ECHO 04/28/2017 1:34pm Height 64 inches 5'4" Weight 233.00 lb Heart Rate 64 /min BP Systolic 130 mmHg BP Diastolic 64 mmHg BMI (Body Mass Index) 40.0 kg/m2 04/09/2017 3:12pm Height 64 inches 5'4" Weight 224.00 lb Heart Rate 64 /min BP Systolic Sitting 140 mmHg BP Diastolic Sitting 84 mmHg Respiratory Rate 16 /min BMI (Body Mass Index) 38.4 kg/m2 03/24/2017 2:10pm Height 64 inches 5'4" Weight 231.00 lb Heart Rate 48 /min BP Systolic 116 mmHg BP Diastolic 67 mmHg Body Temperature 97.6 F Pain Level 5 BMI (Body Mass Index) 39.6 kg/m2 03/03/2017 12:39pm Height 64 inches 5'4" Weight 232.00 lb with shoes Heart Rate 66 /min BP Systolic Sitting 118 mmHg Rue reg cuff BP Diastolic Sitting 70 mmHg Rue reg cuff Respiratory Rate 17 /min BMI (Body Mass Index) 39.8 kg/m2 Ejection Fraction 55-60% 02/05/2017-echo 01/22/2017 2:38pm Height 64 inches 5'4" Weight 226.00 lb Heart Rate 62 /min BP Systolic Sitting 126 mmHg BP Diastolic Sitting 72 mmHg Respiratory Rate 16 /min BMI (Body Mass Index) 38.8 kg/m2 12/06/2016 9:43am Height 64 inches 5'4" Weight 236.00 lb Heart Rate 58 /min BP Systolic 118 mmHg BP Diastolic 68 mmHg Respiratory Rate 13 /min Pain Level 8 BMI (Body Mass Index) 40.5 kg/m2 10/21/2016 1:48pm Height 64 inches 5'4" Weight 239.00 lb Heart Rate 72 /min BP Systolic Sitting 120 mmHg BP Diastolic Sitting 74 mmHg Respiratory Rate 14 /min BMI (Body Mass Index) 41.0 kg/m2 06/20/2016 2:36pm Height 64 inches 5'4" Weight 238.00 lb Heart Rate 68 /min BP Systolic Sitting 122 mmHg BP Diastolic Sitting 76 mmHg Respiratory Rate 14 /min BMI (Body Mass Index) 40.8 kg/m2 03/05/2016 1:24pm Height 64 inches 5'4" Weight 245.50 lb with shoes Heart Rate 62 /min BP Systolic Sitting 126 mmHg BP Diastolic Sitting 64 mmHg Respiratory Rate 18 /min BMI (Body Mass Index) 42.1 kg/m2 Ejection Fraction 55-60% 01/31/16 10/19/2015 2:38pm Height 64 inches 5'4" Weight 256.00 lb Heart Rate 65 /min BP Systolic Sitting 126 mmHg BP Diastolic Sitting 70 mmHg Respiratory Rate 20 /min O2 % BldC Oximetry 96 % BMI (Body Mass Index) 43.9 kg/m2 10/04/2015 10:47am Height 64 inches 5'4" Weight 256.00 lb Heart Rate 62 /min BP Systolic Sitting 120 mmHg BP Diastolic Sitting 62 mmHg BMI (Body Mass Index) 43.9 kg/m2 08/28/2015 12:50pm Height 64 inches 5'4" Weight 262.00 lb Pain Level 0 BMI (Body Mass Index) 45.0 kg/m2 07/28/2015 10:50am Height 64 inches 5'4" Weight 262.00 lb Heart Rate 62 /min BP Systolic 117 mmHg BP Diastolic 61 mmHg BMI (Body Mass Index) 45.0 kg/m2 03/29/2015 11:59am Weight 284.00 lb Heart Rate 60 /min BP Systolic Sitting 126 mmHg BP Diastolic Sitting 76 mmHg Respiratory Rate 16 /min 02/28/2015 10:14am Heart Rate 64 /min BP Systolic Sitting 136 mmHg BP Diastolic Sitting 78 mmHg Respiratory Rate 22 /min O2 % BldC Oximetry 97 % 02/08/2015 10:12am Height 68 inches 5'8" Weight 276.00 lb Heart Rate 62 /min BP Systolic Sitting 126 mmHg LA, Lg cuff BP Diastolic Sitting 70 mmHg LA, Lg cuff BP Systolic Standing 128 mmHg LA BP Diastolic Standing 70 mmHg LA Respiratory Rate 16 /min BMI (Body Mass Index) 42.0 kg/m2 Ejection Fraction 55-60% 01/23/2015 12/08/2014 11:48am Height 68 inches 5'8" Weight 300.00 lb Heart Rate 68 /min BP Systolic Sitting 130 mmHg BP Diastolic Sitting 64 mmHg Respiratory Rate 16 /min BMI (Body Mass Index) 45.6 kg/m2 10/10/2014 2:54pm Height 68 inches 5'8" Weight 299.00 lb Heart Rate 64 /min BP Systolic Sitting 118 mmHg BP Diastolic Sitting 62 mmHg Respiratory Rate 16 /min BMI (Body Mass Index) 45.5 kg/m2 07/08/2014 11:02am Height 68 inches 5'8" Weight 300.00 lb Heart Rate 61 /min BP Systolic Sitting 136 mmHg BP Diastolic Sitting 78 mmHg Respiratory Rate 20 /min O2 % BldC Oximetry 97 % BMI (Body Mass Index) 45.6 kg/m2 05/18/2014 11:01am Height 66 inches 5'6" Weight 308.00 lb Heart Rate 60 /min BP Systolic Sitting 118 mmHg BP Diastolic Sitting 60 mmHg Respiratory Rate 20 /min BMI (Body Mass Index) 49.7 kg/m2 04/19/2014 1:27pm Height 66 inches 5'6" Weight 302.00 lb Heart Rate 62 /min BP Systolic Sitting 133 mmHg BP Diastolic Sitting 54 mmHg Respiratory Rate 20 /min O2 % BldC Oximetry 97 % Ra BMI (Body Mass Index) 48.7 kg/m2 01/21/2014 10:46am Height 66 inches 5'6" Weight 303.50 lb Heart Rate 60 /min BP Systolic Sitting 124 mmHg BP Diastolic Sitting 64 mmHg BP Systolic Standing 122 mmHg BP Diastolic Standing 60 mmHg Respiratory Rate 16 /min BMI (Body Mass Index) 49.0 kg/m2 11/10/2013 10:51am Height 66 inches 5'6" Weight 297.00 lb Heart Rate 62 /min BP Systolic Sitting 130 mmHg BP Diastolic Sitting 70 mmHg Respiratory Rate 16 /min BMI (Body Mass Index) 47.9 kg/m2 Results Test Date Facility Test Result H/L Range Note Laboratory test 10/29/2018 [facility] C Reactive 7.13 mg/L N < 8.[address] [place] [address] [phone] Erythrocyte Sed Rate 27 mm/Hr High 0-19 Vitamin D Total 25(Oh) 44.7 ng/mL N 20-50 1 Comp Metabolic Panel 10/29/2018 [facility] Sodium 142 mmol/L N 135-[address] [place] [address] [phone] Potassium 4.4 mmol/L N 3.5-5.0 Chloride 102 mmol/L N 101-111 Co2 Carbon Dioxide 31 mmol/L N 22-32 Anion Gap 9 mmol/L N 2-11 Calcium 8.8 mg/dL N 8.6-10.3 Albumin 3.2 g/dL N 3.2-5.2 Total Bilirubin 0.30 mg/dL N 0.2-1.0 Glucose 120 mg/dL High 70-100 Blood Urea Nitrogen 25 mg/dL High 6-24 Creatinine 0.90 mg/dL N 0.67-1.17 BUN/Creatinine Ratio 27.8 High 8-20 Total Protein 5.6 g/dL Low 6.4-8.9 Globulin 2.4 g/dL N 2-4 Albumin/Globulin Ratio 1.3 N 1-3 Alkaline Phosphatase 105 U/L High 34-104 Alt 5 U/L Low 7-52 Ast 13 U/L N 13-39 Egfr Non- 81.4 >60 Egfr 98.5 >60 2 CBC Auto Diff 10/29/2018 [facility] White Blood 10.0 10^3/uL N 3.5-10.[address] [place] [address] [phone] Red Blood Count 3.40 10^6/uL Low 4.18-5.48 Hemoglobin 11.2 g/dL Low 14.0-18.0 Hematocrit 34 % Low 36-46 Mean Corpuscular Volume 101 fL High 80-94 Mean Corpuscular Hemoglobin 33 pg High 27-31 Mean Corpuscular HGB Conc 33 g/dL N 31-36 Red Cell Distribution Width 16 % High 10.5-15 Platelet Count 240 10^3/uL N 150-450 Mean Platelet Volume 7.0 fL Low 7.4-10.4 Abs Neutrophils 8.2 10^3/uL High 1.5-7.7 Abs Lymphocytes 1.3 10^3/uL N 1.0-4.8 Abs Monocytes 0.3 10^3/uL N 0-0.8 Abs Eosinophils 0.1 10^3/uL N 0-0.6 Abs Basophils 0 10^3/uL N 0-0.2 Abs Nucleated RBC 0 10^3/uL Granulocyte % 81.6 % Lymphocyte % 13.3 % Monocyte % 3.4 % Eosinophil % 1.3 % Basophil % 0.4 % Nucleated Red Blood Cells % 0 Vitamin B12 And 09/01/2018 [facility] Vitamin B12 367 pg/mL N 180-914 3 Folate Serum [address] [place] [address] [phone] Folate > 20.00 ng/mL >3.99 Iron & Iron Binding 09/01/2018 [facility] Iron 56 g/dL N 50- [address] [place] [address] [phone] Unsaturated Iron Binding < 283 g/dL Total Iron Binding Capacity 298 g/dL N 250-450 Transferrin 213 mg/dL N 203-362 % Iron Saturation 19 % N 15-55 Laboratory test 09/01/2018 [facility] Ferritin 48.4 ng/mL N 24 -[address] [place] [address] [phone] Comp Metabolic Panel 09/01/2018 [facility] Albumin 3.7 g/dL N 3.2-5.[address] [place] [address] [phone] Total Protein 6.0 g/dL Low 6.4-8.9 Globulin 2.3 g/dL N 2-4 Albumin/Globulin Ratio 1.6 N 1-3 Sodium 142 mmol/L N 135-145 Potassium 4.9 mmol/L N 3.5-5.0 Chloride 102 mmol/L N 101-111 Co2 Carbon Dioxide 28 mmol/L N 22-32 Anion Gap 12 mmol/L High 2-11 Glucose 95 mg/dL N 70-100 Blood Urea Nitrogen 27 mg/dL High 6-24 Creatinine 1.10 mg/dL N 0.67-1.17 BUN/Creatinine Ratio 24.5 High 8-20 Calcium 9.0 mg/dL N 8.6-10.3 Total Bilirubin 0.60 mg/dL N 0.2-1.0 Alkaline Phosphatase 60 U/L N 34-104 Alt 8 U/L N 7-52 Ast 16 U/L N 13-39 Egfr Non- 64.6 >60 Egfr 78.1 >60 4 CBC Auto Diff 09/01/2018 [facility] White Blood 8.1 10^3/uL N 3.5-10.[address] [place] [address] [phone] Red Blood Count 3.42 10^6/uL Low 4.00-5.40 Hemoglobin 11.7 g/dL Low 14.0-18.0 Hematocrit 36 % Low 42-52 Mean Corpuscular Volume 106 fL High 80-94 5 Mean Corpuscular Hemoglobin 34 pg High 27-31 Mean Corpuscular HGB Conc 33 g/dL N 31-36 Red Cell Distribution Width 17 % High 10.5-15 Platelet Count 142 10^3/uL Low 150-450 Mean Platelet Volume 7.9 fL N 7.4-10.4 Abs Neutrophils 6.4 10^3/uL N 1.5-7.7 Abs Lymphocytes 1.3 10^3/uL N 1.0-4.8 Abs Monocytes 0.4 10^3/uL N 0-0.8 Abs Eosinophils 0 10^3/uL N 0-0.6 Abs Basophils 0 10^3/uL N 0-0.2 Abs Nucleated RBC 0 10^3/uL Granulocyte % 79.0 % Lymphocyte % 16.1 % Monocyte % 4.4 % Eosinophil % 0.3 % Basophil % 0.2 % Nucleated Red Blood Cells % 0.1 Laboratory test 09/01/2018 [facility] Erythrocyte Sed 6 mm/Hr N 0-20 [address] [place] [address] [phone] C Reactive Protein 2.43 mg/L N <8.01 Laboratory test 08/07/2018 [facility] Erythrocyte Sed 14 mm/Hr N 0-[address] [place] [address] [phone] C Reactive Protein 2.95 mg/L N <8.01 CBC Auto Diff 08/07/2018 [facility] White Blood 10.0 10^3/uL N 3.5-10.[address] [place] [address] [phone] Red Blood Count 3.35 10^6/uL Low 4.00-5.40 Hemoglobin 11.6 g/dL Low 14.0-18.0 Hematocrit 36 % Low 42-52 Mean Corpuscular Volume 107 fL High 80-94 7 Mean Corpuscular Hemoglobin 35 pg High 27-31 Mean Corpuscular HGB Conc 33 g/dL N 31-36 Red Cell Distribution Width 17 % High 10.5-15 Platelet Count 181 10^3/uL N 150-450 Mean Platelet Volume 7.8 fL N 7.4-10.4 Abs Neutrophils 7.3 10^3/uL N 1.5-7.7 Abs Lymphocytes 2.0 10^3/uL N 1.0-4.8 Abs Monocytes 0.6 10^3/uL N 0-0.8 Abs Eosinophils 0 10^3/uL N 0-0.6 Abs Basophils 0 10^3/uL N 0-0.2 Abs Nucleated RBC 0 10^3/uL Granulocyte % 73.3 % Lymphocyte % 20.2 % Monocyte % 6.0 % Eosinophil % 0.3 % Basophil % 0.2 % Nucleated Red Blood Cells % 0.1 Comp Metabolic Panel 08/07/2018 [facility] Sodium 140 mmol/L N 135-[address] [place] [address] [phone] Potassium 5.2 mmol/L High 3.5-5.0 Chloride 100 mmol/L Low 101-111 Co2 Carbon Dioxide 28 mmol/L N 22-32 Anion Gap 12 mmol/L High 2-11 Glucose 81 mg/dL N 70-100 Blood Urea Nitrogen 27 mg/dL High 6-24 Creatinine 1.40 mg/dL High 0.67-1.17 BUN/Creatinine Ratio 19.3 N 8-20 Calcium 8.7 mg/dL N 8.6-10.3 Total Protein 6.0 g/dL Low 6.4-8.9 Albumin 3.8 g/dL N 3.2-5.2 Globulin 2.2 g/dL N 2-4 Albumin/Globulin Ratio 1.7 N 1-3 Total Bilirubin 0.30 mg/dL N 0.2-1.0 Alkaline Phosphatase 70 U/L N 34-104 Alt 8 U/L N 7-52 Ast 13 U/L N 13-39 Egfr Non- 48.9 >60 Egfr 59.2 >60 8 Laboratory test 08/07/2018 [facility] Uric Acid 3.8 mg/dL Low 4.4-7.[address] [place] [address] [phone] Vitamin D Total 25(Oh) 39.8 ng/mL N 20-50 Laboratory test 10/29/2017 [facility] C Reactive 3.69 mg/L N < 5.00 9, [address] [place] [address] [phone] Erythrocyte Sed Rate 8 mm/Hr N 0-40 11 Uric Acid 6.2 mg/dL N 4.4-7.6 12 Connective Tissue 10/29/2017 [facility] Anti-Nuclear 0.4 U [address] [place] [address] [phone] Cyclic Citrullinated Peptide <15.6 U 14 Interpretation See Comment 15 Laboratory test 10/29/2017 [facility] Rheumatoid <10 IU/mL 0- 14 [address] [place] [address] [phone] Hla B27 10/29/2017 [facility] Hla B27 Negative [address] [place] [address] [phone] Hla B27 Interp See Comment 18 Laboratory test 10/29/2017 [facility] Lyme Disease Negative Negative [address] [place] [address] [phone] Laboratory test 04/30/2017 [facility] Valproic Acid 90.0 g/mL N 50-[address] (Depakene) [place] [address] [phone] Comp Metabolic 04/28/2017 [facility] Sodium 143 mmol/L N 133- [address] [place] [address] [phone] Potassium 4.3 mmol/L N 3.5-5.0 Chloride 103 mmol/L N 101-111 Co2 Carbon Dioxide 36 mmol/L High 22-32 Anion Gap 4 mmol/L N 2-11 Glucose 82 mg/dL N 70-100 Blood Urea Nitrogen 26 mg/dL High 6-24 Creatinine 0.95 mg/dL N 0.67-1.17 BUN/Creatinine Ratio 27.4 High 8-20 Calcium 9.1 mg/dL N 8.6-10.3 Total Protein 6.6 g/dL N 6.4-8.9 Albumin 3.8 g/dL N 3.2-5.2 Globulin 2.8 g/dL N 2-4 Albumin/Globulin Ratio 1.4 N 1-3 Total Bilirubin 0.30 mg/dL N 0.2-1.0 Alkaline Phosphatase 89 U/L N 34-104 Alt 14 U/L N 7-52 Ast 16 U/L N 13-39 Egfr Non- 76.7 N >60 Egfr 98.6 N >60 22 CBC No Diff 04/28/2017 [facility] White Blood 8.4 10^3/uL N 3.5-10.[address] [place] [address] [phone] Red Blood Count 4.49 10^6/uL N 4.0-5.4 Hemoglobin 15.0 g/dL N 14.0-18.0 Hematocrit 46 % N 42-52 Mean Corpuscular Volume 101 fL High 80-94 Mean Corpuscular Hemoglobin 33 pg High 27-31 Mean Corpuscular HGB Conc 33 g/dL N 31-36 Red Cell Distribution Width 14 % N 10.5-15 Platelet Count 196 10^3/uL N 150-450 Mean Platelet Volume 8 um3 N 7.4-10.4 Urinalysis Profile 04/28/2017 [facility] Urine Color Iona N [address] [place] [address] [phone] Urine Appearance Cloudy N Urine Specific [place] 1.027 N 1.010-1.030 Urine pH 5.0 N 5-9 Urine Urobilinogen Negative N Negative Urine Ketones Trace Abnormal Negative Urine Protein 1+(30 mg/dL) Abnormal Negative Urine Leukocytes 2+ Abnormal Negative Urine Blood Negative N Negative * * Abnormal Negative 23 Urine Nitrite Negative N Negative Urine Bilirubin Negative N Negative Urine Glucose Negative N Negative Urine White Blood Cell 3+(>20/hpf) Abnormal Absent Urine Red Blood Cell Trace(0-2/hpf) N Absent Urine Bacteria 1+ Abnormal Absent Urine Squamous Epithelial Cell Present Abnormal Absent Urine Hyaline Casts Present Abnormal Absent Urine Amorphous Crystals Present Abnormal Absent Inr/Protime 04/28/2017 [facility] Inr 1.10 N 0.89-1.[address] [place] [address] [phone] Laboratory test 04/28/2017 [facility] Partial 43.0 seconds High 26.0-36.[address] [place] [address] Time PTT [phone] Type & Screen 04/28/2017 [facility] Patient O Positive N [address] [place] [address] [phone] Antibody Screen NEGATIVE N Urine Culture And 04/28/2017 [facility] Urine Culture SEE RESULT [address] [place] [address] [phone] Laboratory test 04/09/2017 [facility] Valproic Acid 38.0 g/mL Low 50-[address] (Depakene) 0 [place], [place] [id number] [phone] CBC Auto Diff 02/18/2017 [facility] White Blood 9.7 10^3/uL N 3.5-[address] Count 0.8 [place], [place] [id number] [phone] Red Blood Count 4.38 10^6/uL N 4.0-5.4 Hemoglobin 14.4 g/dL N 14.0-18.0 Hematocrit 44 % N 42-52 Mean Corpuscular Volume 99 fL High 80-94 Mean Corpuscular Hemoglobin 33 pg High 27-31 Mean Corpuscular HGB Conc 33 g/dL N 31-36 Red Cell Distribution Width 14 % N 10.5-15 Platelet Count 223 10^3/uL N 150-450 Mean Platelet Volume 8 um3 N 7.4-10.4 Abs Neutrophils 5.1 10^3/uL N 1.5-7.7 Abs Lymphocytes 3.2 10^3/uL N 1.0-4.8 Abs Monocytes 0.9 10^3/uL High 0-0.8 Abs Eosinophils 0.4 10^3/uL N 0-0.6 Abs Basophils 0.1 10^3/uL N 0-0.2 Abs Nucleated RBC 0 10^3/uL N Granulocyte % 53.0 % N 38-83 Lymphocyte % 32.8 % N 25-47 Monocyte % 8.9 % N 1-9 Eosinophil % 4.0 % N 0-6 Basophil % 1.3 % N 0-2 Nucleated Red Blood Cells % 0 N Comp Metabolic Panel 02/18/2017 [facility] Sodium 139 mmol/L N 133-145 [address] [place] [address] [phone] Potassium 4.6 mmol/L N 3.5-5.0 Chloride 103 mmol/L N 101-111 Co2 Carbon Dioxide 30 mmol/L N 22-32 Anion Gap 6 mmol/L N 2-11 Glucose 95 mg/dL N 70-100 Blood Urea Nitrogen 34 mg/dL High 6-24 Creatinine 1.09 mg/dL N 0.67-1.17 BUN/Creatinine Ratio 31.2 High 8-20 Calcium 8.7 mg/dL N 8.6-10.3 Total Protein 6.2 g/dL Low 6.4-8.9 Albumin 3.6 g/dL N 3.2-5.2 Globulin 2.6 g/dL N 2-4 Albumin/Globulin Ratio 1.4 N 1-3 Total Bilirubin 0.40 mg/dL N 0.2-1.0 Alkaline Phosphatase 95 U/L N 34-104 Alt 13 U/L N 7-52 Ast 18 U/L N 13-39 Egfr Non- 65.4 N >60 Egfr 84.1 N >60 26 Lipid Profile 02/18/2017 [facility] Triglycerides 106 mg/dL N 27 (Trig/Chol/HDL) [address] [place] [address] [phone] Cholesterol 116 mg/dL N 28 HDL Cholesterol 32.7 mg/dL N 29 LDL Cholesterol 62 mg/dL N 30 Vitamin B12 And 10/29/2016 [facility] Vitamin B12 438 pg/mL N 180-914 31 Folate Serum [address] [place], [place] [id number] [phone] Folate 16.35 ng/mL N >3.99 Laboratory test 10/29/2016 [facility] TSH (Thyroid 2.03 N 0.34 -5.[address] Stimulating mcIU/[place] [address] Horm) [phone] Free T4 0.99 ng/dL N 0.61-1.12 CBC Auto Diff 06/20/2016 [facility] White Blood 9.5 10^3/uL N 3.5-10.[address] [place] [address] [phone] Red Blood Count 4.52 10^6/uL N 4.0-5.4 Hemoglobin 14.8 g/dL N 14.0-18.0 Hematocrit 44 % N 42-52 Mean Corpuscular Volume 98 fL High 80-94 Mean Corpuscular Hemoglobin 33 pg High 27-31 Mean Corpuscular HGB Conc 33 g/dL N 31-36 Red Cell Distribution Width 15 % N 10.5-15 Platelet Count 216 10^3/uL N 150-450 Mean Platelet Volume 8 um3 N 7.4-10.4 Abs Neutrophils 6.3 10^3/uL N 1.5-7.7 Abs Lymphocytes 2.3 10^3/uL N 1.0-4.8 Abs Monocytes 0.6 10^3/uL N 0-0.8 Abs Eosinophils 0.2 10^3/uL N 0-0.6 Abs Basophils 0.1 10^3/uL N 0-0.2 Abs Nucleated RBC 0 10^3/uL N Granulocyte % 66.4 % N 38-83 Lymphocyte % 23.7 % Low 25-47 Monocyte % 6.3 % N 1-9 Eosinophil % 2.1 % N 0-6 Basophil % 1.5 % N 0-2 Nucleated Red Blood Cells % 0 N Liver Function 06/20/2016 [facility] Total Protein 6.5 g/dL N 6.4-8.9 Panel [address] [place] [address] [phone] Albumin 3.7 g/dL N 3.2-5.2 Globulin 2.8 g/dL N 2-4 Albumin/Globulin Ratio 1.3 N 1-3 Total Bilirubin 0.40 mg/dL N 0.2-1.0 Direct Bilirubin 0.10 mg/dL N 0.03-0.18 Indirect Bilirubin 0.3 mg/dL N 0.3-1.0 Alkaline Phosphatase 102 U/L N 34-104 Alt 6 U/L Low 7-52 Ast 14 U/L N 13-39 Laboratory test 06/20/2016 [facility] Valproic Acid 77.0 N 50- 100 32 finding 101 [facility] (Depakene) g/[place] [address] [phone] Laboratory test 09/19/2015 [facility] Uric Acid 5.5 mg/dL N 4.4-7.6 finding [address] [place] [address] [phone] Lipid Profile 09/19/2015 [facility] Triglycerides 121 mg/dL N 33 (Trig/Chol/HDL) [address] [place] [address] [phone] Cholesterol 128 mg/dL N 34 HDL Cholesterol 28.7 mg/dL N 35 LDL Cholesterol 75 mg/dL N 36 Comp Metabolic Panel 09/19/2015 [facility] Sodium 138 mmol/L N 133-145 [address] [place] [address] [phone] Potassium 4.0 mmol/L N 3.5-5.0 Chloride 103 mmol/L N 101-111 Co2 Carbon Dioxide 26 mmol/L N 22-32 Anion Gap 9 mmol/L N 2-11 Glucose 109 mg/dL High 70-100 Blood Urea Nitrogen 12 mg/dL N 6-24 Creatinine 0.87 mg/dL N 0.67-1.17 BUN/Creatinine Ratio 13.8 N 8-20 Calcium 9.0 mg/dL N 8.6-10.3 Total Protein 6.2 g/dL Low 6.4-8.9 Albumin 3.8 g/dL N 3.2-5.2 Globulin 2.4 g/dL N 2-4 Albumin/Globulin Ratio 1.6 N 1-3 Total Bilirubin 0.50 mg/dL N 0.2-1.0 Alkaline Phosphatase 77 U/L N 34-104 Alt 4 U/L Low 7-52 Ast 11 U/L Low 13-39 Egfr Non- 85.3 N >60 Egfr 109.7 N >60 37 CBC Auto Diff 09/19/2015 [facility] White Blood 7.6 10^3/uL N 3.5-10.[address] [place] [address] [phone] Red Blood Count 4.44 10^6/uL N 4.0-5.4 Hemoglobin 15.1 g/dL N 14.0-18.0 Hematocrit 45 % N 42-52 Mean Corpuscular Volume 101 fL High 80-94 Mean Corpuscular Hemoglobin 34 pg High 27-31 Mean Corpuscular HGB Conc 34 g/dL N 31-36 Red Cell Distribution Width 14 % N 10.5-15 Platelet Count 171 10^3/uL N 150-450 Mean Platelet Volume 8 um3 N 7.4-10.4 Abs Neutrophils 4.6 10^3/uL N 1.5-7.7 Abs Lymphocytes 2.2 10^3/uL N 1.0-4.8 Abs Monocytes 0.5 10^3/uL N 0-0.8 Abs Eosinophils 0.2 10^3/uL N 0-0.6 Abs Basophils 0.1 10^3/uL N 0-0.2 Abs Nucleated RBC 0 10^3/uL N Granulocyte % 60.5 % N 38-83 Lymphocyte % 29.7 % N 25-47 Monocyte % 6.9 % N 1-9 Eosinophil % 2.2 % N 0-6 Basophil % 0.7 % N 0-2 Nucleated Red Blood Cells % 0 N Comp Metabolic Panel 04/04/2015 [facility] Sodium 140 mmol/L N 133-[address] [place] [address] [phone] Potassium 4.2 mmol/L N 3.5-5.0 Chloride 106 mmol/L N 101-111 Co2 Carbon Dioxide 28 mmol/L N 22-32 Anion Gap 6 mmol/L N 2-11 Glucose 95 mg/dL N 70-100 Blood Urea Nitrogen 14 mg/dL N 6-24 Creatinine 0.76 mg/dL N 0.67-1.17 BUN/Creatinine Ratio 18.4 N 8-20 Calcium 8.9 mg/dL N 8.6-10.3 Total Protein 6.1 g/dL Low 6.4-8.9 Albumin 3.9 g/dL N 3.2-5.2 Globulin 2.2 g/dL N 2-4 Albumin/Globulin Ratio 1.8 N 1-3 Total Bilirubin 0.40 mg/dL N 0.2-1.0 Alkaline Phosphatase 61 U/L N 34-104 Alt < 3 U/L Low 7-52 Ast 9 U/L Low 13-39 Egfr Non- 99.7 N >60 Egfr 128.2 N >60 38 CBC Auto Diff 04/04/2015 [facility] White Blood 7.6 10^3/uL N 4.8-10.[address] [place] [address] [phone] Red Blood Count 4.38 10^6/uL N 4.0-5.4 Hemoglobin 14.6 g/dL N 14.0-18.0 Hematocrit 45 % N 42-52 Mean Corpuscular Volume 102 fL High 80-94 Mean Corpuscular Hemoglobin 33 pg High 27-31 Mean Corpuscular HGB Conc 33 g/dL N 31-36 Red Cell Distribution Width 15 % N 10.5-15 Platelet Count 185 10^3/uL N 150-450 Mean Platelet Volume 8 um3 N 7.4-10.4 Abs Neutrophils 4.5 10^3/uL N 1.5-7.7 Abs Lymphocytes 2.5 10^3/uL N 1.0-4.8 Abs Monocytes 0.4 10^3/uL N 0-0.8 Abs Eosinophils 0.2 10^3/uL N 0-0.6 Abs Basophils 0.1 10^3/uL N 0-0.2 Abs Nucleated RBC 0 10^3/uL N Granulocyte % 58.4 % N 38-83 Lymphocyte % 32.2 % N 25-47 Monocyte % 5.7 % N 1-9 Eosinophil % 2.4 % N 0-6 Basophil % 1.3 % N 0-2 Nucleated Red Blood Cells % 0.1 N Laboratory test 04/04/2015 [facility] Valproic Acid 57.0 g/mL N 50-[address] ([facility] [place] [address] [phone] CBC Auto Diff 10/20/2014 White Blood 7.3 10^3/uL N 4.8-10.8 Count Red Blood Count 4.47 10^6/uL N 4.0-5.4 Hemoglobin 14.5 g/dL N 14.0-18.0 Hematocrit 44 % N 42-52 Mean Corpuscular Volume 99 fL High 80-94 Mean Corpuscular Hemoglobin 33 pg High 27-31 Mean Corpuscular HGB Conc 33 g/dL N 31-36 Red Cell Distribution Width 14 % N 10.5-15 Platelet Count 177 10^3/uL N 150-450 Mean Platelet Volume 8 um3 N 7.4-10.4 Abs Neutrophils 4.4 10^3/uL N 1.5-7.7 Abs Lymphocytes 2.2 10^3/uL N 1.0-4.8 Abs Monocytes 0.5 10^3/uL N 0-0.8 Abs Eosinophils 0.1 10^3/uL N 0-0.6 Abs Basophils 0 10^3/uL N 0-0.2 Abs Nucleated RBC 0 10^3/uL N Granulocyte % 60.1 % N 38-83 Lymphocyte % 30.2 % N 25-47 Monocyte % 7.2 % N 1-9 Eosinophil % 1.8 % N 0-6 Basophil % 0.7 % N 0-2 Nucleated Red Blood Cells % 0 N Liver Function Panel 10/20/2014 Total Protein 6.5 g/dL N 6.4-8.9 Albumin 3.9 g/dL N 3.2-5.2 Globulin 2.6 g/dL N 2-4 Albumin/Globulin Ratio 1.5 N 1-3 Total Bilirubin 0.40 mg/dL N 0.2-1.0 Direct Bilirubin 0.10 mg/dL N 0.03-0.18 Indirect Bilirubin 0.3 mg/dL N 0.3-1.0 Alkaline Phosphatase 66 U/L N 34-104 Alt 6 U/L Low 7-52 Ast 8 U/L Low 13-39 Comp Metabolic Panel 10/20/2014 [facility] Sodium 141 mmol/L N 133-145 [address] [place] [address] [phone] Potassium 4.5 mmol/L N 3.5-5.0 Chloride 104 mmol/L N 101-111 Co2 Carbon Dioxide 32 mmol/L N 22-32 Anion Gap 5 mmol/L N 2-11 Glucose 85 mg/dL N 70-100 Blood Urea Nitrogen 19 mg/dL N 6-24 Creatinine 1.00 mg/dL N 0.67-1.17 BUN/Creatinine Ratio 19.0 N 8-20 Calcium 9.1 mg/dL N 8.6-10.3 Total Protein 6.6 g/dL N 6.4-8.9 Albumin 3.9 g/dL N 3.2-5.2 Globulin 2.7 g/dL N 2-4 Albumin/Globulin Ratio 1.4 N 1-3 Total Bilirubin 0.50 mg/dL N 0.2-1.0 Alkaline Phosphatase 67 U/L N 34-104 Alt 6 U/L Low 7-52 Ast 8 U/L Low 13-39 Egfr Non- 72.8 N >60 Egfr 93.7 N >60 39 Lipid Profile 10/20/2014 [facility] Triglycerides 99 mg/dL N 40 (Trig/Chol/HDL) [address] [place] [address] [phone] Cholesterol 110 mg/dL N 41 HDL Cholesterol 29.4 mg/dL N 42 LDL Cholesterol 61 mg/dL N 43 Laboratory test 10/20/2014 [facility] Uric Acid 7.5 mg/dL N 4.4-7.6 finding [address] [place] [address] [phone] Magnesium 1.9 mg/dL N 1.9-2.7 Vitamin B12 And Folate Serum 11/10/2013 Vitamin B12 479 pg/mL N 180-914 44 Folate 13.10 ng/mL N >3.99 Laboratory test 11/03/2013 Valproic Acid 52 g/mL N 50.0-100.0 finding Laboratory test 09/10/2013 [facility] Uric Acid 8.4 mg/dL High 4.4-7.6 45 finding [address] [place] [address] [phone] PSA Screening 0.222 ng/mL 0-4.000 46 Lipid Profile 09/10/2013 [facility] Triglycerides 91 mg/dL 47 (Trig/Chol/HDL) [address] [place] [address] [phone] Cholesterol 109 mg/dL 48 HDL Cholesterol 31.1 mg/dL 49 LDL Cholesterol 60 mg/dL 50 Comp Metabolic Panel 09/10/2013 [facility] Sodium 140 mmol/L 133-[address] [place] [address] [phone] Potassium 4.7 mmol/L 3.7-5.6 Chloride 105 mmol/L [...] Egfr Non- 69.8 >60 Egfr 89.8 >60 51 CBC Auto Diff 09/10/2013 [facility] White Blood 9.8 10^3/uL 4.8-10.[address] [place] [address] [phone] Red Blood Count 4.36 10^6/uL 4.0-5.4 Hemoglobin [...] Red Blood Cells % 0 Laboratory test 05/18/2013 [facility] Magnesium 1.9 mg/dL 1.7 -2.6 finding [address] [place] [address] [phone] Laboratory test 02/17/2013 [facility] Magnesium 1.9 mg/dL 1.7 -2.6 52 finding [address] [place] [address] [phone] TSH (Thyroid Stimulating Horm) 2.33 miu/mL 0.34-5.60 53 Basic Metabolic Panel 02/17/2013 [facility] Sodium 142 mmol/L 133-145 [address] [place] [address] [phone] Potassium 4.4 mmol/L 3.5-5.0 Chloride 107 mmol/L 101-111 Co2 Carbon Dioxide 29.0 mmol/L 22-32 Anion Gap 6.0 mmol/L 2-11 Glucose 103 mg/dL High 70-100 Blood Urea Nitrogen 19 mg/dL 6-24 Creatinine 0.90 mg/dL 0.50-1.40 BUN/Creatinine Ratio 21.1 High 8-20 Calcium 9.5 mg/dL 8.1-9.9 Egfr Non- 82.5 >60 Egfr 106.1 >60 54 CBC No Diff 02/17/2013 [facility] White Blood 9.5 10^3/uL 4.8 -10.[address] [place] [address] [phone] Red Blood Count 4.69 10^6/uL 4.0-5.4 Hemoglobin 15.2 g/dL 14.0-18.0 Hematocrit 46 % 42-52 Mean Corpuscular Volume 98 fL High 80-94 Mean Corpuscular Hemoglobin 32 pg High 27-31 Mean Corpuscular HGB Conc 33 g/dL 31-36 Red Cell Distribution Width 14 % 10.5-15 Platelet Count 179 10^3/uL 150-450 Mean Platelet Volume 8 um3 7.4-10.4 Laboratory test 05/22/2012 [facility] Magnesium 2.0 mg/dL 1.7 -2.6 finding [address] [place] [address] [phone] Basic Metabolic 05/22/2012 [facility] Sodium 138 mmol/L 133- 145 Panel [address] [place] [address] [phone] Potassium 4.4 mmol/L 3.5-5.0 Chloride 104 mmol/L 101-111 Co2 Carbon Dioxide 26.0 mmol/L 22-32 Anion Gap 8.0 mmol/L 2-11 Glucose 93 mg/dL 70-100 Blood Urea Nitrogen 14 mg/dL 6-24 Creatinine 0.90 mg/dL 0.50-1.40 BUN/Creatinine Ratio 15.6 8-20 Calcium 8.8 mg/dL 8.1-9.9 Egfr Non- 82.7 >60 Egfr 106.4 >60 55 Basic Metabolic Panel 05/13/2012 [facility] Sodium 142 mmol/L 133-145 [address] [place] [address] [phone] Potassium 3.6 mmol/L 3.5-5.0 Chloride 106 mmol/L 101-111 Co2 Carbon Dioxide 28.0 mmol/L 22-32 Anion Gap 8.0 mmol/L 2-11 Glucose 98 mg/dL 70-100 Blood Urea Nitrogen 19 mg/dL 6-24 Creatinine 1.00 mg/dL 0.50-1.40 BUN/Creatinine Ratio 19.0 8-20 Calcium 8.6 mg/dL 8.1-9.9 Egfr Non- 73.2 >60 Egfr 94.2 >60 56 CBC No Diff 05/13/2012 [facility] White Blood 8.6 10^3/uL 4.8 -10.[address] [place] [address] [phone] Red Blood Count 4.16 10^6/uL 4.0-5.4 Hemoglobin 13.7 g/dL Low 14.0-18.0 Hematocrit 40 % Low 42-52 Mean Corpuscular Volume 96 fL High 80-94 Mean Corpuscular Hemoglobin 33 pg High 27-31 Mean Corpuscular HGB Conc 34 g/dL 31-36 Red Cell Distribution Width 15 % 10.5-15 Platelet Count 132 10^3/uL Low 150-450 Mean Platelet Volume 9 um3 7.4-10.4 Laboratory test 05/13/2012 [facility] Magnesium 1.8 mg/dL 1.7 -2.[address] [place] [address] [phone] TSH (Thyroid Stimulating Horm) 2.56 MIU/ML 0.34-5.60 Basic Metabolic Panel 04/07/2012 [facility] Sodium 135 mmol/L 133-145 [address] [place] [address] [phone] Potassium 3.8 mmol/L 3.5-5.0 Chloride 105 mmol/L 101-111 Co2 Carbon Dioxide 28.0 mmol/L 22-32 Anion Gap 2.0 mmol/L 2-11 Glucose 108 mg/dL High 70-100 Blood Urea Nitrogen 14 mg/dL 6-24 Creatinine 1.20 mg/dL 0.50-1.40 BUN/Creatinine Ratio 11.7 8-20 Calcium 8.4 mg/dL 8.1-9.9 Egfr Non- 59.3 >60 Egfr 76.3 >60 57 1 Total 25-Hydroxyvitamin D2 and D3 (25-OH-VitD) <10 ng/mL (severe deficiency) 10-19 ng/mL (mild to moderate deficiency) 20-50 ng/mL (optimum levels) 51-80 ng/mL (increased risk of hypercalciuria) >80 ng/mL (toxicity possible) 2 Because ethnic data is not always readily [...] 15-29 5 Kidney failure <15 (or dialysis) 3 Normal Range 180 to 914 Indeterminate Range 145 to 180 Deficient Range <145 4 Because ethnic data is not always readily [...] 15-29 5 Kidney failure <15 (or dialysis) 5 Consistent with Previous Results Reported on 08/07/18 6 Test Performed by: [facility] [address] [place] [address] Héctor Block M.D. Director of Laboratory 7 Adult MCV>105,Warmed at 37 for 30 min, change minimal 8 Because ethnic data is not always readily [...] 15-29 5 Kidney failure <15 (or dialysis) 9 [id number] [facility] [address], Room Number 109P 10 Acute inflammation: >10.[address], Room Number 109P 12 [id number] [facility] [address], Room Number 109P 13 REFERENCE VALUE <=1.0 (Negative) 14 REFERENCE VALUE <20.0 (Negative) 15 Tests for antibodies to dsDNA and ZAKIA antigens are not performed automatically unless the JUNI result is > or= 3.0 U. Studies performed at [facility] indicate that positive JUNI results <3.0 U are rarely accompanied by positive second order tests. Test Performed by: [address] [address] 16 Performed by [facility], [address] [place] [id number] [email or web address], Axel Bush MD - Lab. Director Test Performed by: [facility] [address] [place] [id number] 17 REFERENCE VALUE Not Applicable 18 RESULT: HLA-B27 antigen was not detected. ADDITIONAL INFORMATION Method: Flow Cytometry Performing Laboratory CLIA# [id number] Test Performed by: [address] [address] 19 No evidence of antibodies to B. burgdorferi detected. False negative results may occur in recently infected patients (<=2 weeks) due to low or undetectable antibody levels to B. burgdorferi. If recent exposure is suspected, a second sample should be collected and tested in 2-4 weeks. Test Performed by: [facility] [place] [address] [place] [address] 20 ORDERED 04/12/17 EXPIRES 10/11/17 DRAW IN AM PRIOR TO FIRST DOSE CC:[email or web address] 21 AA 05/15 22 Because ethnic data is not always readily [...] 15-29 5 Kidney failure <15 (or dialysis) 23 *Ascorbic acid is present which may interfere with detection of blood. 24 AA 05/15 25 SEE RESULT BELOW Name: JUJU DEWITT SR : [address]: Shiela Avalos MD Acct: [id number] Unit: [id number] AGE: 77 Location: [facility] Re04/28/17 SEX: M Status: REG REF SPEC: [id number] DALE: 04/28/[address] [facility] [address]: Shiela Avalos MD REQ: [id number] RECD: 04/28/17 STATUS: NATALYA BROWN DR: Zuhair Woodall MD _ SOURCE: URINE SPDESC: ORDERED: Urine Culture COMMENTS: YELENA 05/15 QUERIES: Urine Source: Clean Catch Procedure Result Reported Site Urine Culture Final 04/30/17822 ML Organism 1 ENTEROCOCCUS FAECALIS [place] Count >100,000 (Many) CFU/ML 1. ENTEROCOCCUS [...] performed at Main Lab DEPARTMENT OF PATHOLOGY, [address] [place] [address] Héctor Block M.D. Director [facility] # [id number] Patient: JUJU DEWITT SR [id number] (Continued) Specimen: [id number] Collected: 04/28/17 Received: 04/28/17 (Continued) Procedure Result Reported Site Urine Culture Final (continued) * These antibiotics are not available in the [facility] Formulary Contact the Microbiology Department for any additional antibiotic reporting. * ML - MAIN LAB ([facility]) . END OF REPORT * ML=Testing performed at Main Lab DEPARTMENT OF PATHOLOGY, [address] [place] [address] Héctor Block M.D. Director [facility] # [id number] 26 Because ethnic data is not always readily [...] 15-29 5 Kidney failure <15 (or dialysis) 27 Desirable <150 Borderline high 150-199 High 200-499 Very High >500 28 Desirable <200 Borderline high 200-239 High >239 29 Low <40 Desirable: 40-60 High: >60 30 Desirable: <100 mg/dL Near Optimal: 100-129 mg/dL Borderline High: 130-159 mg/dL High: 160-189 mg/dL Very High: >189 mg/dL 31 Normal Range 180 to 914 Indeterminate Range 145 to 180 Deficient Range <145 32 Draw prior to AM dose of medication Copy Result to: JENI SCHWARTZ ([id number]) 33 Desirable <150 Borderline high 150-199 High 200-499 Very High >500 34 Desirable <200 Borderline high 200-239 High >239 35 Low <40 Desirable: 40-60 High: >60 36 Desirable: <100 mg/dL Near Optimal: 100-129 mg/dL Borderline High: 130-159 mg/dL High: 160-189 mg/dL Very High: >189 mg/dL 37 Because ethnic data is not always [...] 5 Kidney failure <15 (or dialysis) 38 Because ethnic data is not always readily [...] 15-29 5 Kidney failure <15 (or dialysis) 39 Because ethnic data is not always readily [...] 15-29 5 Kidney failure <15 (or dialysis) 40 Desirable <150 Borderline high 150-199 High 200-499 Very High >500 41 Desirable <200 Borderline high 200-239 High >239 42 Low <40 Desirable: 40-60 High: >60 43 Desirable: <100 mg/dL Near Optimal: 100-129 mg/dL Borderline High: 130-159 mg/dL High: 160-189 mg/dL Very High: >189 mg/dL 44 Normal Range 180 to 914 Indeterminate Range 145 to 180 Deficient Range <145 45 FASTING 46 Serum levels of PSA measured using the [email or web address] DXI Hybritech immunoassay should not be interpreted [...] methods or kits cannot be used interchangeably. 47 Desirable <150 Borderline high 150-199 High 200-499 Very High >500 48 Desirable <200 Borderline high 200-239 High >239 49 Low <40 Desirable: 40-60 High: >60 50 Desirable <100 Near Optimal 100-129 Borderline high 130-159 High 160-189 Very High >189 51 Because ethnic data is not always readily [...] 15-29 5 Kidney failure <15 (or dialysis) 52 PT HAS PROCEDURE AT 1PM TODAY RUN TEST GRUPO 53 PT HAS PROCEDURE AT 1PM TODAY RUN TEST GRUPO 54 Because ethnic data is not always readily [...] 15-29 5 Kidney failure <15 (or dialysis) 55 Because ethnic data is not always readily [...] 15-29 5 Kidney failure <15 (or dialysis) 56 Because ethnic data is not always readily [...] 15-29 5 Kidney failure <15 (or dialysis) 57 Because ethnic data is not always readily [...] Kidney failure <15 (or dialysis) Procedures Date Code Description Status 09/17/2018 04590 Open TX Of Femoral FX,Promimal End,Neck Internal Fixation Completed 09/17/2018 00515 Open TX Of Femoral FX,Promimal End,Neck Internal Fixation Completed 09/14/2018 35151 ECHO Transthorasic Realtime 2D W Doppler & Color Flow Hosp Completed 09/13/2018 65285 EKG, Interpretation Only Completed 03/03/2018 99859 EKG Tracing & Interpretation Completed 02/25/2018 82885 ECHO Transthoracic, Real-Time 2D With Doppler And Color Completed Flow 02/25/2018 81715 ECHO Transthoracic, Real-Time 2D With Doppler And Color Completed Flow 02/09/2018 04481 Electroencephalogram (EEG) Extended Monitoring 41-60 Completed Minutes 05/16/2017 67023 EKG, Interpretation Only Completed 05/15/2017 98125 THR Total Hip Replacement Completed 05/15/2017 51384 THR Total Hip Replacement Completed 04/30/2017 14777 EKG Tracing & Interpretation Completed 04/21/2017 44703 Stress Test Completed 04/21/2017 54266 Myocardial Perfusion Imaging Tomographic (Spect) Multiple Completed Studies 03/03/2017 36024 EKG Tracing & Interpretation Completed 02/05/2017 32570 ECHO Transthoracic, Real-Time 2D With Doppler And Color Completed Flow 03/05/2016 15194 EKG Tracing & Interpretation Completed 01/31/2016 11388 ECHO Transthoracic, Real-Time 2D With Doppler And Color Completed Flow 02/08/2015 28275 EKG Tracing & Interpretation Completed 01/23/2015 32428 ECHO Transthoracic, Real-Time 2D With Doppler And Color Completed Flow 01/21/2014 65358 EKG Tracing & Interpretation Completed 12/30/2013 52359 ECHO Transthoracic, Real-Time 2D With Doppler And Color Completed Flow 03/22/2013 98722 EKG Tracing & Interpretation Completed 02/17/2013 52845 EKG, Interpretation Only Completed 02/17/2013 14879 EKG Tracing & Interpretation Completed 02/17/2013 08742 EKG Tracing & Interpretation Completed 02/17/2013 61080 Cardioversion Completed 12/18/2012 60811 ECHO Transthoracic, Real-Time 2D With Doppler And Color Completed Flow 07/23/2012 70093 EKG Tracing & Interpretation Completed 05/21/2012 02430 EKG Tracing & Interpretation Completed 05/13/2012 55321 Cardioversion Completed 05/13/2012 62931 EKG Tracing & Interpretation Completed 05/13/2012 42960 EKG, Interpretation Only Completed 04/27/2012 14072 EKG Tracing & Interpretation Completed 03/03/2012 55220 Polysomnography Sleep Staging 4+ Parameters W/Cpap Completed 01/16/2012 31530 Polysomnography Sleep Staging 4+ Parameters W/Cpap Completed 12/23/2011 83414 Polysomnography Sleep Staging 4+ Parameters Completed 12/23/2011 13466 Polysomnography Sleep Staging 4+ Parameters Completed 08/14/2009 39086 EKG, Interpretation Only Completed 08/14/2009 15291 Insert Non-Tunneled Venous Catether Completed Encounters Type Date Location Provider Dx Diagnosis Office Visit 01/12/2019 [facility] Of Robert Ramirez, S72.002D Fx unsp part of 1:30p Nba IVERSON nk of l desi, subs for clos fx w routn heal Office Visit 01/06/2019 [facility] Jeimy Woodall, Z79.52 snf 10:00a M.D. 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 unsp part of Hospitalists neck of left femur, init G20 Parkinson's disease M35.3 Polymyalgia rheumatica I48.0 Paroxysmal atrial fibrillation I11.0 Hypertensive heart disease with heart failure I50.9 Heart failure, unspecified Office Visit 09/19/2018 10:12a [facility] S72.002A Fracture of Assocanthony M.D. unsp part of Hospitalists neck of left femur, init G20 Parkinson's disease M35.3 Polymyalgia rheumatica I48.0 Paroxysmal atrial fibrillation Office Visit 09/18/2018 10:10a [facility] S72.002A Fracture of Assocanthony M.D. unsp part of Hospitalists neck of left femur, init G20 Parkinson's disease M35.3 Polymyalgia rheumatica I48.0 Paroxysmal atrial fibrillation I11.0 Hypertensive heart disease with heart failure I50.9 Heart failure, unspecified Office Visit 09/17/2018 10:08a [facility] S72.002A Fracture of Assocanthony M.D. unsp part of Hospitalists neck of left femur, init G20 Parkinson's disease M35.3 Polymyalgia rheumatica I48.0 Paroxysmal atrial fibrillation I11.0 Hypertensive heart disease with heart failure I50.9 Heart failure, unspecified Office Visit 09/16/2018 4:04p [facility] Kayli Johnsoner, I48.0 Paroxysmal atrial Of Delma Gage fibrillation R60.9 Edema, unspecified J20.9 Acute bronchitis, unspecified S72.002D Fx unsp part of nk of l femr, subs for clos fx w routn heal Office Visit 09/16/2018 10:07a [facility] Klever J96.01 Acute respiratory Assocanthony M.D. failure with Hospitalists hypoxia S72.002A Fracture of unsp part of neck of left femur, init G20 Parkinson's disease M35.3 Polymyalgia rheumatica I50.9 Heart failure, unspecified S72.002D Fx unsp part of nk of l femr, subs for clos fx w routn heal Office Visit 09/16/2018 9:45a W[facility] Penelope Bhatt R23.8 Other skin [facility] Salas, CNC SUPERVISOR changes Z78.9 Other specified health status Office Visit 09/15/2018 Orthopedic Silvia S72.002A Fracture of unsp 9:47a Services Of SARAH Danielson part of neck of C.M.A. left femur, init Office Visit 09/15/2018 Justa Child Z01.810 Encounter for 2:16p Cardiology Of Too Templeton preprocedural [facility] cardiovascular examination S72.002D Fx unsp part of nk of l femr, subs for clos fx w routn heal I50.9 Heart failure, unspecified I48.0 Paroxysmal atrial fibrillation Office Visit 09/15/2018 [facility] Svitlana Mae, S72.002A Fracture of 10:06a anthony Stewart M.D. unsp part of Hospitalists neck of left femur, init G20 Parkinson's disease I48.0 Paroxysmal atrial fibrillation I50.31 Acute diastolic (congestive) heart failure J96.01 Acute respiratory failure with hypoxia Office Visit 09/14/2018 [facility] Svitlana Mae, I50.31 Acute diastolic 10:05a anthony Stewart M.D. (congestive) Hospitalists heart failure G20 Parkinson's disease I11.0 Hypertensive heart disease with heart failure J20.9 Acute bronchitis, unspecified J96.01 Acute respiratory failure with hypoxia I48.0 Paroxysmal atrial fibrillation Office Visit 09/14/2018 Orthopedic Robert Ramirez, S72.032A Displaced 9:47a Services Of midcervical C.M.A. fracture of left femur, init W18.2xxA Fall in (into) shower or empty bathtub, initial encounter Office Visit 09/13/2018 [facility] Svitlana Mae, I50.31 Acute diastolic 10:04a Assocanthony M.D. 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 M10.9 Gout, unspecified Z79.52 snf (current) use of systemic steroids D64.9 Anemia, unspecified Office Visit 08/07/2018 3:00p [facility] Jeimy Woodall, G20 Parkinson's Services Of [place] Gage disease G40.909 Epilepsy, unsp, not intractable, without status epilepticus F03.90 Unspecified dementia without behavioral disturbance Office Visit 07/16/2018 11:30a [facility] Penelope Bhatt R42 Dizziness and Josue CNC SUPERVISOR giddiness R60.9 Edema, unspecified Z66 Do not resuscitate Office Visit 07/09/2018 9:00a [facility] Penelope Bhatt R60.9 Edema, unspecified Salas, CNC SUPERVISOR R42 Dizziness and giddiness Z66 Do not resuscitate Office Visit 07/03/2018 10:30a [facility] Erin Mina G20 Parkinson's disease M10.9 Gout, unspecified G40.909 Epilepsy, unsp, not intractable, without status epilepticus M35.3 Polymyalgia rheumatica I48.0 Paroxysmal atrial fibrillation M48.061 Spinal stenosis, lumbar region without neurogenic sean Z79.52 snf (current) use of systemic steroids I95.9 Hypotension, unspecified Office Visit 06/22/2018 3:00p Rheumatology Alejandro M35.3 Polymyalgia Services Of [facility] Yang Holland. rheumatica Z79.899 Other fdc (current) drug therapy M10.9 Gout, unspecified M48.061 Spinal stenosis, lumbar region without neurogenic sean Z79.52 bed bug exterminator (current) use of systemic steroids Office Visit 03/03/2018 1:45p [facility] Zuhair Brownlee I48.0 Paroxysmal atrial Of [facility] Too Elliott, fibrillation FACC, FASNC I77.810 Thoracic aortic ectasia Office Visit 02/26/2018 [place] Jeimy Woodall, G40.909 Epilepsy, unsp, 1:00p Neurologic M.D. not intractable, Services Of [facility] without status epilepticus G20 Parkinson's disease M25.539 Pain in unspecified wrist M25.579 Pain in unspecified ankle and joints of unspecified foot Office Visit 02/23/2018 8:30a [facility] Kristin Wakefield, M10.9 Gout, unspecified CNC SUPERVISOR Office Visit 02/20/2018 9:00a [facility] Erin G20 Parkinson's MD Leopoldo disease M25.552 Pain in left hip M54.5 Low back pain G40.909 Epilepsy, unsp, not intractable, without status epilepticus I10 Essential (primary) hypertension I48.0 Paroxysmal atrial fibrillation Office Visit 02/17/2018 12:15p [facility] Citlaly Riley, G20 Parkinson' s disease D.O. R53.1 Weakness R26.2 Difficulty in walking, not elsewhere classified M25.551 Pain in right hip W19.xxxA Unspecified fall, initial encounter M48.061 Spinal stenosis, lumbar region without neurogenic sean G40.909 Epilepsy, unsp, not intractable, without status epilepticus I10 Essential (primary) hypertension I48.0 Paroxysmal atrial fibrillation Office Visit 02/01/2018 1:57p [place] Rina Dickens M54.5 Low back Assoc,anthony Childress MD pain Hospitalists R09.02 Hypoxemia G47.33 Obstructive sleep apnea (adult) (pediatric) Office Visit 01/31/2018 7:00a Neurosurgery Carmen Buenrostro, M48.061 Spinal stenosis, Services Of [facility] PA-C lumbar region without neurogenic sean M51.36 Other intervertebral disc degeneration, lumbar region Office Visit 01/31/2018 1:56p [place] Rina Dickens M54.5 Low back Assoc,pc MD [place] pain Hospitalists R09.02 Hypoxemia Office Visit 01/30/2018 1:56p [place] Rina Dickens M54.5 Low back Assoc,pc MD [place] pain Hospitalists R09.02 Hypoxemia Office Visit 01/29/2018 7:00a [facility]ist Tamiko Juarez [facility] MD disease M51.36 Other intervertebral disc degeneration, lumbar region Office Visit 01/29/2018 1:55p [place] Rina Dickens M54.5 Low back Assoc,pc MD [place] pain Hospitalists R09.02 Hypoxemia Office Visit 01/28/2018 7:00a [facility] Tamiko [facility] disease M51.36 Other intervertebral disc degeneration, lumbar region R79.82 Elevated C-reactive protein (CRP) Office Visit 01/28/2018 1:55p [facility] Klever Cintron M54.5 Low back Assoc, Nicolas Gage pain R09.02 Hypoxemia Office Visit 01/27/2018 7:00a [facility]hospitalist Tamiko [facility] disease M51.36 Other intervertebral disc degeneration, lumbar region G62.9 Polyneuropathy, unspecified Office Visit 01/27/2018 1:55p [facility] Klever Cintron M54.5 Low back Assoc, Nicolas Gage pain R09.02 Hypoxemia Office Visit 12/29/2017 11:16a [place] Rina Saunders M25.521 Pain in Assoc, Too Gaffney right elbow Hospitalists M25.571 Pain in right ankle and joints of right foot Office Visit 12/28/2017 11:15a [place] Rina Andrews M25.521 Pain in Assoc,anthony BENAVIDES M.D. right elbow Hospitalists M25.571 Pain in right ankle and joints of right foot Office Visit 12/19/2017 1:45p [place] Neu[facility]ic Jeimy Woodall, G20 Parkinson's Services Of [place] Gage disease F03.90 Unspecified dementia without behavioral disturbance G40.909 Epilepsy, unsp, not intractable, without status epilepticus Office Visit 12/01/2017 8:45a [facility] Kristin Wakefield, G20 Parkinson 's disease CNC SUPERVISOR R60.0 Localized edema I10 Essential (primary) hypertension M10.9 Gout, unspecified S81.802D Unspecified open wound, left lower leg, subsequent encounter Z96.641 Presence of right artificial hip joint I48.0 Paroxysmal atrial fibrillation G40.89 Other seizures Office Visit 11/21/2017 9:15a [place] Vikas Citlaly Riley, G20 Parkinson' s disease D.O. I48.0 Paroxysmal atrial fibrillation M10.9 Gout, unspecified S81.802D Unspecified open wound, left lower leg, subsequent encounter Office Visit 10/24/2017 10:00a Rheumatology Alejandro M10.9 Gout, unspecified Services Of [place] Holland M.D. 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, right wrist I48.0 Paroxysmal atrial fibrillation Office Visit 08/22/2017 8:15a [facility] Kristin Wakefield, G20 Parkinson 's disease CNC SUPERVISOR R60.0 Localized edema R19.5 Other fecal abnormalities Z96.641 Presence of right artificial hip joint Office Visit 08/20/2017 8:30a [facility] Nasrin Nunez NP R60.0 Localized edema M25.531 Pain in right wrist M25.572 Pain in left ankle and joints of left foot M25.571 Pain in right ankle and joints of right foot Office Visit 08/18/2017 8:30a [facility] Kristin Wakefield M10.031 Idiopathic gout, CNC SUPERVISOR right wrist L03.116 Cellulitis of left lower limb Office Visit 07/28/2017 8:00a [place] Vikas Wakefield NP M25.531 Pain in right wrist R60.0 Localized edema Office Visit 07/23/2017 8:15a [facility] Nasrin Nunez M10.031 Idiopathic gout, CNC SUPERVISOR right wrist Office Visit 07/22/2017 9:00a [facility] Nasrin Nunez, M25.531 Pain in right CNC SUPERVISOR wrist Office Visit 07/17/2017 11:30a [facility] Nasrin Blancasch, R60.0 Localized edema CNC SUPERVISOR Office Visit 07/08/2017 8:30a [facility] Nasrin Blancasch, K62.5 Hemorrhage of CNC SUPERVISOR anus and rectum Office Visit 06/28/2017 9:15a [facility] Svitlana Mae, M10.031 Idiopathic gout, M.D. right wrist M10.071 Idiopathic gout, right ankle and foot R60.0 Localized edema Z96.641 Presence of right artificial hip joint Office Visit 06/11/2017 8:45a [facility] Kristin Wakefield, M25.531 Pain in right CNC SUPERVISOR wrist Office Visit 06/03/2017 8:15a [facility] Citlaly Riley, I48.0 Paroxysmal atrial D.O. fibrillation G20 Parkinson's disease I10 Essential (primary) hypertension G47.33 Obstructive sleep apnea (adult) (pediatric) Z96.641 Presence of right artificial hip joint Office Visit 05/30/2017 8:00a [facility] Kristin Leahtory, CNC SUPERVISOR R60.0 Localized edema M25.531 Pain in right wrist Z96.641 Presence of right artificial hip joint Office 05/26/2017 [place] Rina Rosa N17.9 Acute kidney Visit 12:40p Assoc,pc SARAH Kiser failure, Hospitalists unspecified I48.0 Paroxysmal atrial fibrillation Z96.641 Presence of right artificial hip joint G20 Parkinson's disease Office Visit 05/25/2017 12:39p Milagros Tamayo7.9 Acute kidney Assoc,pc N.P. failure, Hospitalists unspecified I48.0 Paroxysmal atrial fibrillation Z96.641 Presence of right artificial hip joint G20 Parkinson's disease Office Visit 05/24/2017 12:38p Milagros Tamayo7.9 Acute kidney Assoc,pc N.P. failure, Hospitalists unspecified I48.0 Paroxysmal atrial fibrillation Z96.641 Presence of right artificial hip joint G20 Parkinson's disease Office Visit 05/23/2017 12:38p [place] [facility] Savana Parth, N17.9 Acute kidney Assoc,pc N.P. failure, Hospitalists unspecified I48.0 Paroxysmal atrial fibrillation Z96.641 Presence of right artificial hip joint G20 Parkinson's disease Office Visit 05/22/2017 12:37p [facility] Savana Alba, N17.9 Acute kidney Assoc,pc N.P. failure, Hospitalists unspecified I48.0 Paroxysmal atrial fibrillation Z96.641 Presence of right artificial hip joint G20 Parkinson's disease Office 05/22/2017 [facility] Adams Orta G93.40 Encephalopathy, Visit 2:04p Clinic Arsenio, unspecified M.D. Office 05/21/2017 [facility] Stepan Z96.641 Presence of right Visit 12:36p Assoc,pc [place] artificial hip Hospitalists joint G20 Parkinson's disease I48.0 Paroxysmal atrial fibrillation N17.9 Acute kidney failure, unspecified Office Visit 05/20/2017 10:16a [place] [address] Parkinson's Assoc,pc [place] disease Hospitalists I48.0 Paroxysmal atrial fibrillation N17.9 Acute kidney failure, unspecified Z96.641 Presence of right artificial hip joint Office Visit 05/19/2017 10:15a [place] [address] Parkinson's Assoc,pc [place] disease Hospitalists I48.0 Paroxysmal atrial fibrillation N17.9 Acute kidney failure, unspecified Z96.641 Presence of right artificial hip joint Office Visit 05/18/2017 10:14a [place] [address] Parkinson's Assoc,pc [place] disease Hospitalists I48.0 Paroxysmal atrial fibrillation N17.9 Acute kidney failure, unspecified Z96.641 Presence of right artificial hip joint Office 05/18/2017 [facility] Adams Orta G93.40 Encephalopathy, Visit 9:49a Clinic Arsenio, unspecified M.D. Office 05/17/2017 [place] [id number] Parkinson's disease Visit 10:13a Assoc,pc Hospitalists [place] I48.0 Paroxysmal atrial fibrillation N17.9 Acute kidney failure, unspecified Z96.641 Presence of right artificial hip joint Office Visit 05/16/2017 10:13a [place] [id number] Parkinson's Assoc,pc [place] disease Hospitalists I48.0 Paroxysmal atrial fibrillation N17.9 Acute kidney failure, unspecified Office Visit 05/15/2017 [facility] G20 Parkinson's 10:11a Assoc,SARAH Perdomo disease Hospitalists I48.0 Paroxysmal atrial fibrillation G40.909 Epilepsy, unsp, not intractable, without status epilepticus Z96.641 Presence of right artificial hip joint Office Visit 04/30/2017 11:30a [facility] Zuhair Brownlee I48.0 Paroxysmal atrial Of [place] Elliott M.D., fibrillation FACC, FASAR M16.11 Unilateral primary osteoarthritis, right hip Z01.810 Encounter for preprocedural cardiovascular examination Office Visit 04/09/2017 3:00p [place] [facility] Jeimy Woodall, G40.209 Local-rel Services Of [place] Gage symptc epi w cmplx prt seiz,not ntrct,w/o stat epi G20 Parkinson's disease Office Visit 03/24/2017 2:00p Orthopedic Services Shiela Avalos, M25.551 Pain in right Of C.M.A. M.DNunu hip M16.11 Unilateral primary osteoarthritis, right hip Office Visit 03/03/2017 1:15p [facility] Zuhair Brownlee I48.0 Paroxysmal atrial Of [place] Elliott M.D., fibrillation FAC, [facility] Office Visit 01/22/2017 2:30p [facility] Jeimy G2Magdalena Parkinson's disease Services Of [place] Woodall M.D. G25.81 Restless legs syndrome G40.209 Local-rel symptc epi w cmplx prt seiz,not ntrct,w/o stat epi G31.84 Mild cognitive impairment, so stated Office Visit 12/06/2016 Orthopedic Shiela M16.11 Unilateral primary 10:15a Services Of Too Avalos osteoarthritis, right C.M.A. hip M25.551 Pain in right hip Office Visit 10/21/2016 2:00p [place] [facility] Jeimy Woodall, G20 Parkinson's Services Of [place] Gage disease G25.81 Restless legs syndrome G40.209 Local-rel symptc epi w cmplx prt seiz,not ntrct,w/o stat epi Office Visit 06/20/2016 2:30p [place] [facility] Jeimy Woodall, G20 Parkinson's Services Of [facility] M.D. disease G25.81 Restless legs syndrome G40.209 Local-rel symptc epi w cmplx prt seiz,not ntrct,w/o stat epi Z79.899 Other fdc (current) drug therapy Office Visit 03/05/2016 2:00p [facility] Zuhairtran Brownlee I48.0 Paroxysmal atrial Of [facility] Too Elliott, fibrillation FACC, FASAR Office Visit 10/19/2015 3:15p Pulmonology And Samantha G47.33 Obstructive sleep Sleep Services Of MD Quinten apnea (adult) Supervisor [employer] (pediatric) E66.01 Morbid (severe) obesity due to excess calories Office Visit 10/04/2015 11:00a [place] [facility] Jeimy Woodall, G20 Parkinson's Services Of [facility] M.D. disease G25.81 Restless legs syndrome G40.209 Local-rel symptc epi w cmplx prt seiz,not ntrct,w/o stat epi F32.9 Major depressive disorder, single episode, unspecified Office Visit 08/28/2015 Orthopedic Shiela M16.11 Unilateral primary 1:00p Services Of Too Avalos osteoarthritis, right C.M.A. hip M25.551 Pain in right hip M25.512 Pain in left shoulder Office Visit 07/28/2015 10:30a Orthopedic Services Shielaana maría Avalos, M25.561 Pain in right Of C.M.A. M.D. knee M25.551 Pain in right hip M16.11 Unilateral primary osteoarthritis, right hip M25.461 Effusion, right knee Office Visit 03/29/2015 11:45a [place] [facility] Jeimy Woodall, G25.81 Restless legs Services Of [facility] M.D. syndrome G20 Parkinson's disease G40.009 Local-rel idio epi w seiz of loc onst,not ntrct,w/o stat epi Z79.899 Other fdc (current) drug therapy Office Visit 02/28/2015 10:45a Pulmonology And Samantha 327.23 Obstructive Sleep Sleep Services Of MD Quinten Apnea Adult & [facility] Pediatric 278.00 Obesity Unspec Office Visit 02/08/2015 10:30a [facility] Zuhairtran Brownlee 447.71 Thoracic Aortic Of [facility] Too Elliott, [employer] [facility], [facility] 401.9 Hypertension Unspec Office Visit 12/08/2014 [place] Jeimy Woodall, 345.40 Local-Related 11:45a Neurologic M.D. Epilepsy W/O Services Of [facility] Mention Of Intractable Epilepsy 332.0 Paralysis Agitans 333.94 Restless Leg Syndrome Office Visit 10/10/2014 [place] Jeimy Woodall, 345.40 Local-Related 2:45p Neurologic M.D. 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 Pediatric Office Visit 01/27/2012 [facility] 327.23 Obstructive Sleep 11:28a Disorder [facility] Rick, Apnea Adult & M.D. Pediatric Office Visit 01/15/2012 [facility] 327.23 Obstructive Sleep 11:25a Disorder [place] Rick, Apnea Adult & M.D. Pediatric Office Visit 08/19/2009 [facility] Clarita 274.9 Gout Unspec 2:45a Assanthony hoff M.D. Hospitalists 715.90 Osteoarthrosis Unspec Genlzd Or Localized Site Unspec Office Visit 08/18/2009 3:30a [facility] [place] 274.9 Gout Unspec Assanthony hoff M.D. 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 Renal Disease Hospitalists 575.0 Cholecystitis Acute 285.9 Anemia Unspec 401.9 Hypertension Unspec Office Visit 08/15/2009 [place] Rina Zepeda 575.0 Cholecystitis Acute 12:30a anthony Stewart D.O. Hospitalists 458.9 Hypotension Unspec 276.2 Acidosis 285.9 Anemia Unspec 518.0 Pulmonary Collapse Office Visit 08/14/2009 [place] Rina Zepeda, 575.0 Cholecystitis Acute 2:15a anthony Stewart D.O. Hospitalists 518.81 Respiratory Failure Acute 584.9 Acute Kidney Failure, Unspecified 458.9 Hypotension Unspec 285.9 Anemia Unspec 345.90 Epilepsy Unspec W/O Intractable 278.00 Obesity Unspec Plan of Treatment Future Appointment(s):03/25/2019 10:30 am - DANIEL Javier at [facility]04/14/2019 1:15 pm - Robert Ramirez MD at [facility]02/17/2019 11:30 am - Jeimy Woodall M.D. at [facility] [id number]/28/2019 - Becki Mccoy, DIDIPM35.3 Polymyalgia rheumaticaNew Medication: Prednisone 1 mg - take 6 tablets by mouth for 4 weeks, then reduce to 5 tab/day every 4 weeks, then to 3 tabs for 4 weeksComments:Please continue taking the methotrexate 3 tabs every Friday and folic acid every day.Take 6 tabs of the 1 mg prednisone daily for 4 weeks, then reduce this to 5 tabs for 4 weeks.Will need to see ou back at that time.The plan is to continue with the taper of this medication by 1 mg every 4 weeksFollow up:8 weeks Needs labs [id number] bed bug exterminator (current) use of systemic steroidsNew Medication:Prednisone 1 mg - take 6 tablets by mouth for 4 weeks, then reduce to 5 tab/day every 4 weeks, then to 3 tabs for 4 [id number] Pain in unspecified kneeNew Medication:Diclofenac Sodium 1 % - apply 4 grams on knees twice dailyComments:Please start using the topical cream on your knees 2 x [id number] Other fdc (current) drug therapy
--- NOTE | 2019-02-11 21:27 | ED ---
Altered Mental Status - HPI Summary HPI Summary: Patient is a 79 y/o M presenting to ED via EMS with complaints of AMS. Patient' s son had reported that the patient had "slumped over" and gotten cold. The patient was not talking, appeared to be not alert, and did not want to eat. Son reports extremities and cheeks were cold. No vomiting reported, normal urination noted. Sx onset around 1745 02/11/19. The son notes that the patient's Sx appeared to have somewhat resolved while he was in the waiting room. Son notes Hx of UTIs with somewhat similar Sx, but notes that Sx with these previous episode onset gradually as opposed to suddenly. At baseline, son reports patient cannot walk but is capable of speaking. He is typically in a wheelchair but the patient can stand with assistance. Son notes that the patient is typically confused, but alert. Patient is on oxygen for his sleep apnea at night. In the room, patient states that he feels fine. He denies SOB and reports that he is not hungry. Level 5 caveat, AMS. - History Of Current Complaint Chief Complaint: EDAltMentalStatus Stated Complaint: AMS PER EMS Time Seen by Provider: 02/11/19 21:10 Hx Obtained From: Family/Applications Chemist - son Hx From Patient Unobtainable Due To: Altered Mental Status Onset/Duration: Still Present, Suddenly Timing: Lasting Hours Character: Confusion Aggravating Factor(s): Unknown Alleviating Factor(s): Unknown Associated Signs And Symptoms: Negative: Vomiting - Allergies/Home Medications Allergies/Adverse Reactions: Allergies Allergy/AdvReac Type Severity Reaction Status Date / Time Penicillins Allergy Hives Verified 02/11/19 21:05 NO MRIs - METAL FRAGMENT IN AdvReac Severe See Comment Uncoded 01/30/18 16:53 EYE Home Medications: Home Medications Duloxetine HCl 60 mg PO DAILY 02/11/19 [History Confirmed 02/11/19] Lamotrigine 25 mg PO DAILY 02/11/19 [History Confirmed 02/11/19] Methotrexate TAB* 7.5 mg PO WEEKLY 02/11/19 [History Confirmed 02/11/19] PMH/Surg Hx/FS Hx/Imm Hx Endocrine/Hematology History: Reports: Hx Anticoagulant Therapy - pradaxa Cardiovascular History: Reports: Hx Atrial Fibrillation, Hx Congestive Heart Failure, Hx Hypercholesterolemia, Hx Hypertension, Other Cardiovascular Problems /Disorders - A-fib Denies: Hx Myocardial Infarction, Hx Pacemaker/ICD Respiratory History: Reports: Hx Chronic Obstructive Pulmonary Disease (COPD), Hx Sleep Apnea, Other Respiratory Problems/Disorders - sleep apnea Denies: Hx Pneumonia GI History: Reports: Hx Gall Bladder Disease, Hx Gastroesophageal Reflux Disease , Other GI Disorders - CONSTIPATION AND DIARRHEA ISSUES IN THE PAST Musculoskeletal History: Reports: Hx Arthritis - Polymyalgia Rheumatica , Hx Gout Sensory History: Reports: Hx Cataracts, Hx Contacts or Glasses - reading glasses @ home., Hx Glaucoma - RIGHT, Hx Hearing Aid, Hx Hearing Problem Opthamlomology History: Reports: Hx Cataracts, Hx Contacts or Glasses - reading glasses @ home., Hx Glaucoma - RIGHT Neurological History: Reports: Hx Dementia, Hx Seizures, Other Neuro Impairments /Disorders - Parkinson's Psychiatric History: Reports: Hx Depression - ON MEDS after 's Denies: Hx Panic Disorder - Surgical History Surgery Procedure, Year, and Place: cholecystectomy; bilat TKR; appendectomy; cataracts; right DORON Hx Anesthesia Reactions: No Infectious Disease History: No Infectious Disease History: Denies: Hx Clostridium Difficile, Traveled Outside the [place] in Last 30 Days - Family History Known Family History: Negative: Blood Disorder - Social History Alcohol Use: None Substance Use Type: Reports: None Smoking Status (MU): Never Smoked Tobacco Review of Systems - ROS Summary Review of Systems Summary: LEVEL 5 CAVEAT, AMS Constitutional: Other - positive - patient was "slumped over" and had gotten cold Gastrointestinal: Other - positive - decreased appetite Negative: Vomiting Positive: no symptoms reported - no urinary issues reported Neurological: Other - positive - confused, not talking All Other Systems Reviewed And Are Negative: No - Comments Additional Review of Systems Comments: LEVEL 5 CAVEAT, AMS Physical Exam - Summary Physical Exam Summary: VITAL SIGNS: Reviewed. GENERAL: Patient is a well-developed and nourished male who is lying comfortable in the stretcher. Patient is not in any acute respiratory distress. HEAD AND FACE: No signs of trauma. No ecchymosis, hematomas or skull depressions. No sinus tenderness. EYES: PERRLA, EOMI x 2, No injected conjunctiva, no nystagmus. EARS: Hearing grossly intact. Ear canals and tympanic membranes are within normal limits. MOUTH: Oropharynx within normal limits. NECK: Supple, trachea is midline, no adenopathy, no JVD, no carotid bruit, no c- spine tenderness, neck with full ROM CHEST: Symmetric, no tenderness at palpation LUNGS: Decreased breath sounds bilaterally. CVS: Regular rate and rhythm, S1 and S2 present, no murmurs or gallops appreciated. ABDOMEN: Soft, non-tender. No signs of distention. No rebound no guarding, and no masses palpated. Bowel sounds are normal. EXTREMITIES: Trace BLE edema. FROM in all major joints, no cyanosis or clubbing. NEURO: Alert and oriented to name. No acute neurological deficits. SKIN: Dry and warm; multiple ecchymotic areas. Triage Information Reviewed: Yes Vital Signs On Initial Exam: Initial Vitals Temp Pulse Resp BP Pulse Ox 99.5 F 85 16 139/56 98 02/11/19 20:52 02/11/19 20:52 02/11/19 20:52 02/11/19 20:52 02/11/19 20:52 Vital Signs Reviewed: Yes Diagnostics - Vital Signs Vital Signs Temp Pulse Resp BP Pulse Ox 02/11/19 20:52 99.5 F 85 16 139/56 98 - Laboratory Result Diagrams: 02/11/19 21:40 02/11/19 21:40 Lab Statement: Any lab studies that have been ordered have been reviewed, and results considered in the medical decision making process. - Radiology CXR Radiology Interpretation Completed By: ED Physician Summary of Radiographic Findings: CXR showed no acute process, pending official report. - EKG 2142 Cardiac Rate: NL - rate of 69 BPM EKG Rhythm: Sinus Rhythm Summary of EKG Findings: EKG showed NSR with rate of 69 BPM, short UT interval is noted. Re-Evaluation - Re-Evaluation First Eval Re-Evaluation Time: 21:27 Comment: Rectal temp is 99.5 F. Second Eval Re-Evaluation Time: 22:06 Comment: Patient's results and labs were discussed with the patient's son. Son is agreeable to have the patient admitted. Altered Mental Statu Course/Dx - Course Course Of Treatment: Patient is a 79 y/o M presenting to ED via EMS with complaints of AMS. Patient's son had reported that the patient had "slumped over " and gotten cold. The patient was not talking, appeared to be not alert, and did not want to eat. Son reports extremities and cheeks were cold. No vomiting reported, normal urination noted. Sx onset around 1745 02/11/19. The son notes that the patient's Sx appeared to have somewhat resolved while he was in the waiting room. Son notes Hx of UTIs with somewhat similar Sx, but notes that Sx with these previous episode onset gradually as opposed to suddenly. At baseline , son reports patient cannot walk but is capable of speaking. He is typically in a wheelchair but the patient can stand with assistance. Son notes that the patient is typically confused, but alert. On physical exam, patient is noted to be alert and oriented to name. He has decreased breath sounds bilaterally and multiple ecchymotic areas. Trace BLE edema is noted as well. EKG showed NSR with rate of 69 BPM, short UT interval is noted. CXR showed no acute process. Labs showed WBC 12.7, RBC 3.78, Hgb 12, Hct 37, MCV 98, MCH 32, RDW 17, plt count 126, MPV 7.3, absolute neuts 11.2, absolute lymphs 0.4, absolute monos 1, INR 1.36, APTT 42, carbon dioxide 34, BUN/creatinine ratio 22.5, glucose 111, ALT 4, total protein 6.2. UA showed trace ketones, 1+ blood, positive nitrate, 1 + leukocyte esterase, 3+ WBC, 2+ RBC, 1+ bacteria. During ED course, patient received one liter of fluids, Levaquin 750 mg IVpremix, Tylenol 975 mg PO and Solu-Cortef 100 mg IV ED ONCE. Patient was not given saline according to sepsis protocol due to concerns for CHF and hypervolemia. Patient was only given 1 liter of fluids as a result. Patient is hemodynamically stable. Results of labs were discussed with the patient, he is agreeable with admission for patient. Patients case was discussed with Dr. Blackmon, Dr. Blackmon accepts for admission. - Diagnoses Provider Diagnoses: Sepsis - Provider Notifications Discussed Care Of Patient With: Rafita Blackmon Time Discussed With Above Provider: 22:16 Instructed by Provider To: Other - Patients case was discussed with Dr. Blackmon, Dr. Blackmon accepts for admission. Discharge - Sign-Out/Discharge Documenting (check all that apply): Patient Departure - admit Patient Received Moderate/Deep Sedation with Procedure: No - Discharge Plan Condition: Stable Disposition: ADMITTED TO [facility] Referrals: Graeme Schwartz MD [Primary Care Provider] - - Attestation Statements Document Initiated by Scribe: Yes Documenting Scribe: ISAAC CARSON Provider For Whom Scribe is Documenting (Include Credential): VADIM MCFADDEN MD Scribe Attestation: IISAAC, scribed for VADIM MCFADDEN MD on 02/11/19 at 2305. Status of Scribe Document: Ready
[2019-02-11] MEDS ORDERED: Acetaminophen TAB* 325 MG PO ONE (21:28)
[2019-02-11] MEDS ORDERED: Hydrocortisone INJ* 100 MG VIAL IV ONE (21:28)
[2019-02-11] MEDS ORDERED: Levofloxacin 750 MG IVPREMIX(* 750 MG/150 ML BAG IVPB ONE (21:29)
[2019-02-11] MEDS ORDERED: NS 0.9% 1000 ML** 1,000 ML IV ONE (21:35)
[2019-02-11 21:48] LABS: ABS Lymphocytes 0.4 10^3/ul (1.0-4.8); ABS Neutrophils 11.2 10^3/ul (1.5-7.7); Eosinophil % 0.2 %; Hematocrit 37 % (42-52); Mean Corpuscular HGB Conc 32 g/dL (31-36); Mean Corpuscular Hemoglobin 32 pg (27-31); Mean Corpuscular Volume 98 fL (80-94); Mean Platelet Volume 7.3 fL (7.4-10.4); Platelet Count 126 10^3/uL (150-450); Red Blood Count 3.78 10^6 /uL (4.18-5.48); Red Cell Distribution Width 17 % (10-15); White Blood Count 12.7 10^3/uL (3.5-10.8)
[2019-02-11 21:56] LABS: INR 1.36 (0.82-1.09)
[2019-02-11 21:59] LABS: Urine Appearance Cloudy; Urine Bacteria 1+ (Absent); Urine Bilirubin Negative (Negative); Urine Blood 1+ (Negative); Urine Color Yellow; Urine Glucose Negative (Negative); Urine Ketones Trace (Negative); Urine Nitrite Positive (Negative); Urine Protein Negative (Negative); Urine Red Blood Cell 2+(6-10/hpf) (Absent); Urine Specific Gravity 1.018 (1.010-1.030); Urine Urobilinogen Negative (Negative); Urine White Blood Cell 3+(>20/hpf) (Absent)
[2019-02-11 22:04] LABS: Albumin 3.6 g/dL (3.2-5.2); Albumin/Globulin Ratio 1.4 (1-3); BUN/Creatinine Ratio 22.5 (8-20); Calcium 8.8 mg/dL (8.6-10.3); EGFR Non-African American 70.3 (>60); Globulin 2.6 g/dL (2-4); Potassium 4.2 mmol/L (3.5-5.0); Total Bilirubin 0.5 mg/dL (0.2-1.0); Total Protein 6.2 g/dL (6.4-8.9)
[2019-02-11 22:05] LABS: Troponin I 0.01 ng/mL (<0.04)
[2019-02-12] MEDS ORDERED: Acetaminophen TAB* 325 MG PO PRN (01:13)
[2019-02-12] MEDS: Carbidopa/Levodop 25/100 MG TAB(*) PO SCH ×4 (03:04→20:48)
[2019-02-12] MEDS: Divalproex ER TAB(*) 500 MG PO SCH ×2 (03:06→20:50)
[2019-02-12] MEDS: Famotidine TAB* 20 MG PO SCH ×2 (03:07→20:50)
[2019-02-12] MEDS: Tamsulosin CAP* 0.4 MG PO SCH ×2 (03:08→20:50)
[2019-02-12] MEDS: Timolol 0.5% OPTH.SOL* BTL RIGHT EYE SCH ×2 (03:09→20:50)
--- NOTE | 2019-02-12 06:07 | HP ---
CC: Dr. Graeme Schwartz* ADMISSION HISTORY AND PHYSICAL: DATE OF ADMISSION: 02/12/19 PRIMARY CARE PROVIDER: Dr. Graeme Schwartz. CHIEF COMPLAINT: Altered mental status. HISTORY OF PRESENT ILLNESS: This is an 79-year-old male with past medical history significant for heart failure with preserved ejection fraction, Parkinson's with mild cognitive impairment, polymyalgia rheumatica, paroxysmal AFib, on anticoagulation, was recently discharged from [facility] 3 weeks ago, was brought in after son noted that the patient was unresponsive. The patient apparently was transferred to his chair and noted to be just unresponsive, not alert, not talking, did not want to eat, and his extremities and body was very cold. No vomiting reported. All these things happened at around 5:45 on 02/11/19. So, son finally after seeing that he was not recovering decided to bring him to the ER for further evaluation. Initially, the son did not call the ambulance right away as the patient does have some mild cognitive impairment and does have waxing and waning of the mental status from [id number] and becomes confused from time-to- time. Upon arrival to the ER, the patient slowly became more alert and was bit more responsive. By the time I saw the patient, he was completely back to his baseline according to the son. Although the only confusion during my evaluation was that he thought we were in January or March, and could not tell the year, but knew that his birthday was last month and he turned 79, which is accurate. He also knew he was in a hospital and knew he wanted to go home. He otherwise offers no other symptoms of UTI, but his previous episodes of mental status change was also due to urinary tract infection. PAST MEDICAL HISTORY: 1. He has heart failure with preserved ejection fraction. 2. History of hypertension. 3. History of gout. 4. History of benign prostatic hypertrophy. 5. History of epilepsy and seizure disorder, but has not had a seizure in many years, currently still on antiseizure medication. 6. History of Parkinson's disease. 7. History of dementia/mild cognitive impairment. 8. Paroxysmal AFib. 9. Obstructive sleep apnea, on 2 L nasal cannula. 10. Polymyalgia rheumatica. 11. Thoracic aortic ectasia. 12. Lumbar spinal stenosis with chronic radiculopathy. PAST SURGICAL HISTORY: Include right and total left knee replacement in 2016, cholecystectomy, appendectomy, hip replacement bilaterally with left one being partial and the right one being total hip replacement. MEDICATIONS: Home medications include: 1. Ranitidine 300 mg p.o. at bedtime. 2. Prednisone 5 mg tablets oral daily. 3. Timolol 0.5 drop ophthalmic right eye daily at bedtime. 4. Flomax 0.4 mg daily at bedtime. 5. Propafenone 425 mg p.o. b.i.d. 6. Metoprolol extended release 50 mg p.o. in the morning. 7. Methotrexate 7.4 mg p.o. weekly. 8. Lisinopril 2.5 mg oral daily. 9. Lamotrigine 25 mg oral daily. 10. Lasix 20 mg every morning. 11. Folic acid 1 mg p.o. daily. 12. Duloxetine 60 mg oral daily. 13. Depakote 1500 mg p.o. at bedtime. 14. Dabigatran 150 mg p.o. b.i.d. 15. Carbidopa/levodopa ahm-ucz-haem tablet p.o. t.i.d. 16. Calcium carbonate with vitamin D one tablet oral at bedtime. 17. Allopurinol 200 mg p.o. b.i.d. 18. Tylenol 650 mg q.6 hours p.r.n. ALLERGIES: The patient is documented to have allergies to PENICILLIN. FAMILY HISTORY: Noncontributory at his age, but there is documentation that mother due to complications of alcoholism, and as did his sister, and the patient's father of old age. SOCIAL HISTORY: The patient used to occasionally smoke a pipe when he was much younger, has not done that for many years. He quit drinking 15 years ago, but never really truly abused alcohol. No other illicit drug use history. 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 He is DNR and according to the son and the son will be the surrogate decision maker, who was present at bedside. The patient lives at son's house, although the patient has his own independent apartment, which was basically the son's garage , which was repurposed into home and was wheelchair compatible and at baseline. The patient does use wheelchair quite a bit, although he is able to sometimes support himself with some assistance. REVIEW OF SYSTEMS: A 14-point review of systems was not very accurate, as the patient was initially very confused and otherwise offered no symptoms whatsoever. PHYSICAL EXAMINATION GENERAL: The patient is awake, alert, and oriented to place and almost oriented to time as well, although he did not reply about the year, but he knew his birthday was last month and he knew, he thought that was in January. VITAL SIGNS: BP was noted to be 159/63, heart rate 63, respiratory rate 24, saturating 95% on 2 L nasal cannula, temperature T-max was documented at 100.1 degrees Fahrenheit temporally. HEAD AND NECK: Atraumatic, normocephalic. Bilateral pupils are reactive. Oral mucosa was moist. Neck: Supple. No jugular venous distention. LUNGS: Clear to auscultation bilaterally. No wheezing, rhonchi or rales. HEART: S1, S2. Regular rate and rhythm. ABDOMEN: Soft, nontender, and nondistended. EXTREMITIES: The patient did have bilateral pitting edema up to the knee, which according to the son is his baseline. DIAGNOSTIC STUDIES/LAB DATA: Lab evaluation: CBC, which shows elevated white count of 12.7, hemoglobin and hematocrit stable, platelet count minimally decreased at 126. Coagulation profile INR elevated at 1.36. Comprehensive metabolic panel was unremarkable except for minimally elevated bicarb at 34. BUN and creatinine was normal. Random glucose minimally elevated at 111, lactic acid within normal limits. Troponin at 0.01. LFTs otherwise were normal. Portable chest x-ray was noted to be grossly normal, official read by radiologist is still pending. Current EKG shows sinus rhythm with prolonged MN interval without any ST elevation with a heart rate of 69. When compared to his previous EKG, it was essentially unchanged from September 2018. IMPRESSION: This is an 79-year-old gentleman with multiple medical problems including mild cognitive impairment, here due to some confusion and altered mental status likely secondary to sepsis from urinary tract infection and metabolic encephalopathy versus toxic encephalopathy. ASSESSMENT AND PLAN: 1. Sepsis secondary to urinary tract infection. We will start the patient on ciprofloxacin IV b.i.d. and follow up cultures and titrate antibiotic accordingly. 2. Altered mental status likely secondary to metabolic encephalopathy and delirium from his urinary tract infection. It should improve as his urinary tract infection improves. 3. History of Parkinson's disease. Restart home medications. 4. Heart failure with preserved ejection fraction. Restart his diuretics. 5. History of hypertension. Restart home medications with holding parameters. 6. History of gout. Restart home medications. 7. History of benign prostatic hypertrophy. The patient already got Folbee in the ER. We will consider stopping it and continue his prostate medications. 8. History of seizure disorder. Restart home medications. 9. History of Parkinson's disease. Restart home medications. 10. History of paroxysmal atrial fibrillation. Restart his anticoagulation. 11. History of obstructive sleep apnea, on 2 L nasal cannula at night. He will continue the oxygen at nighttime. 12. History of polymyalgia rheumatica. Continue his immune modulator therapy. 13. DVT prophylaxis. The patient already on therapeutic Pradaxa and does not need any SCDs, contraindicated due to his lower extremity edema, and no Lovenox or heparin. [id number]/[facility] #: [id number] MTDD
[2019-02-12 07:35] LABS: ABS Lymphocytes 0.9 10^3/ul (1.0-4.8); ABS Monocytes 0.4 10^3/ul (0-0.8); Hematocrit 33 % (42-52); Hemoglobin 11.2 g/dL (14.0-18.0); Lymphocyte % 7.6 %; Mean Corpuscular HGB Conc 34 g/dL (31-36); Mean Corpuscular Hemoglobin 33 pg (27-31); Mean Corpuscular Volume 97 fL (80-94); Mean Platelet Volume 7.7 fL (7.4-10.4); Platelet Count 113 10^3/uL (150-450); Red Blood Count 3.38 10^6 /uL (4.18-5.48); Red Cell Distribution Width 17 % (10-15); White Blood Count 12.3 10^3/uL (3.5-10.8)
[2019-02-12 07:54] LABS: BUN/Creatinine Ratio 21.3 (8-20); Calcium 8.3 mg/dL (8.6-10.3); EGFR African American 93.4 (>60); EGFR Non-African American 77.2 (>60); Potassium 4.5 mmol/L (3.5-5.0)
[2019-02-12] MEDS ORDERED: Methotrexate TAB* 2.5 MG PO SCH (09:00)
[2019-02-12] MEDS ORDERED: Lisinopril TAB* 5 MG PO SCH (09:00)
[2019-02-12] MEDS ORDERED: Ciprofloxacin 400MG IVPREMIX(* 400 MG/200 ML BAG IVPB SCH (10:00)
[2019-02-12] MEDS: lamoTRIgine TAB(*) 25 MG PO SCH (10:39)
[2019-02-12] MEDS: CMCS: Dabigatran CAP(NF) 150 MG CAP PO SCH ×2 (10:40→20:49)
[2019-02-12] MEDS: DULoxetine DR CAP* 60 MG CAP.DR PO SCH (10:40)
[2019-02-12] MEDS: Folic Acid TAB* 1 MG PO SCH (10:40)
[2019-02-12] MEDS: predniSONE TAB* 5 MG PO SCH (10:40)
[2019-02-12] MEDS: Allopurinol TAB* 100 MG PO SCH ×2 (10:41→20:48)
[2019-02-12] MEDS: Furosemide TAB* 20 MG PO SCH (10:41)
[2019-02-12] MEDS: Metoprolol Succinate XL TAB* 50 MG PO SCH (11:43)
[2019-02-12] MEDS: PROPAFENONE 425 MG PO SCH ×2 (11:44→20:50)
[2019-02-12] MEDS: cefTRIAXone* 1 GM in NS 0.9% 50 ML BAG IVPB SCH (11:45)
[2019-02-12] MEDS: Calcium/Vitamin D TAB 250/125* TAB PO SCH (20:48)
--- NOTE | 2019-02-12 22:14 | PN ---
Subjective Date of Service: 02/12/19 Interval History: Patient reports that he is feeling better. Denies fever or chills overnight. Denies n/v/d. Denies abd pain. Denies chest pain or shortness of breath. Called for positive blood culture. T- max 100.1 Urine with E coli family present in the Room reports patient is back to baseline Family History: Unchanged from Admission Social History: Unchanged from Admission Past Medical History: Unchanged from Admission Objective Active Medications: Acetaminophen (Tylenol Tab*) 650 mg PO Q4H PRN PRN Reason: PAIN - MILD Allopurinol (Zyloprim Tab*) 200 mg PO BID [facility] Last Admin: 02/12/19 20:48 Dose: 200 mg Calcium/Vitamin D (Oscal D Tab 250/125*) 1 tab PO BEDTIME [facility] Last Admin: 02/12/19 20:48 Dose: 1 tab Carbidopa/Levodopa (Sinemet 25/100 Tab(*)) 1.5 tab PO TID [facility] Last Admin: 02/12/19 20:48 Dose: 1.5 tab Dabigatran (Pradaxa Cap(Nf)) 150 mg PO BID [facility] Last Admin: 02/12/19 20:49 Dose: 150 mg Divalproex Sodium (Depakote Er Tab(*)) 1,500 mg PO BEDTIME [facility] Last Admin: 02/12/19 20:50 Dose: 1,500 mg Duloxetine HCl (Cymbalta Cap*) 60 mg PO DAILY [facility] Last Admin: 02/12/19 10:40 Dose: 60 mg Famotidine (Pepcid Tab*) 40 mg PO BEDTIME [facility] Last Admin: 02/12/19 20:50 Dose: 40 mg Folic Acid (Folvite Tab*) 1 mg PO DAILY [facility] Last Admin: 02/12/19 10:40 Dose: 1 mg Furosemide (Lasix Tab*) 20 mg PO QAM [facility] Last Admin: 02/12/19 10:41 Dose: 20 mg Ceftriaxone Sodium 1 gm/ (Sodium Chloride) 50 mls @ 100 mls/hr IVPB Q24H [facility] Last Admin: 02/12/19 11:45 Dose: 100 mls/hr Lamotrigine (Lamictal Tab(*)) 25 mg PO DAILY [facility] Last Admin: 02/12/19 10:39 Dose: 25 mg Lisinopril (Prinivil Tab*) 2.5 mg PO DAILY [facility] Last Admin: 02/12/19 11:43 Dose: Not Given Methotrexate (Methotrexate Tab*) 7.5 mg PO Fr@0900 [facility] Last Admin: 02/12/19 11:41 Dose: 7.5 mg Metoprolol Succinate (Toprol Xl Tab*) 50 mg PO QAM [facility] Last Admin: 02/12/19 11:43 Dose: Not Given Prednisone (Deltasone Tab*) 5 mg PO DAILY [facility] Last Admin: 02/12/19 10:40 Dose: 5 mg Propafenone HCl (Rythmol Er (Nf)) 425 mg PO BID [facility] Last Admin: 02/12/19 20:50 Dose: Not Given Tamsulosin HCl (Flomax Cap*) 0.4 mg PO BEDTIME [facility] Last Admin: 02/12/19 20:50 Dose: 0.4 mg Timolol Maleate (Timoptic 0.5% Opth*) 1 drop RIGHT EYE BEDTIME [facility] Last Admin: 02/12/19 20:50 Dose: 1 drop Vital Signs - 8 hr 02/12/19 02/12/19 15:26 19:35 Temperature 97.6 F 97.7 F Pulse Rate 67 72 Respiratory 20 20 Rate Blood Pressure 148/54 122/43 (mmHg) O2 Sat by Pulse 100 98 Oximetry Oxygen Devices in Use Now: Nasal Cannula Appearance: alert and oriented x 3, no acute distress Eyes: No Scleral Icterus Ears/Nose/Mouth/Throat: Clear Oropharnyx, Mucous Membranes Moist Neck: NL Appearance and Movements; NL JVP, Trachea Midline Respiratory: Symmetrical Chest Expansion and Respiratory Effort, - - diminished in the bases bilat Cardiovascular: NL Sounds; No Murmurs; No JVD, No Edema Abdominal: NL Sounds; No Tenderness; No Distention Extremities: No Clubbing, Cyanosis, - - +2 bilat lower ext Skin: No Rash or Ulcers Neurological: Alert and Oriented x 3 Nutrition: Taking PO's Result Diagrams: 02/12/19 07:03 02/12/19 07:03 Microbiology and Other Data: Microbiology 02/11/19 21:38 Urine Culture - Preliminary Urine Escherichia Coli 02/11/19 21:40 Aerobic Blood Culture - Preliminary Blood Venous Anaerobic Blood Culture - Preliminary 02/11/19 21:40 Aerobic Blood Culture - Preliminary Blood Venous Assess/Plan/Problems-Billing Assessment: Mr. Dewitt is an 79 y.o male with pmhx of Parkinson disease, seizures. afib , htn , gout who presented to the ER with altered mental status found to have a UTI and sepsis . - Patient Problems (1) Sepsis Current Visit: Yes Status: Acute Comment: related to e-coli uti now with positive blood cultures - gram negative bacilli - changed antibiotic to ceftriaxone (2) Bacteremia due to Gram-negative bacteria Current Visit: Yes Status: Acute Code(s): R78.81 - BACTEREMIA SNOMED Code( s): 028184666768 Comment: likely r/t - uti e-coli culture - pending prelimary positive for gram negative bacilli - will continue ceftriaxone (3) UTI (urinary tract infection) Current Visit: Yes Status: Acute Comment: - Urine culture with e- coli - susceptibility pending - will change antibiotic to ceftriaxone - Blood cultures positive for gram negative bacilli - afebrile this AM - will continue to monitor temp (4) Parkinsons disease Current Visit: No Status: Acute Code(s): G20 - PARKINSON'S DISEASE SNOMED Code(s): 12418234 Comment: -Continue home dose of sinemet. (5) Paroxysmal A-fib Current Visit: No Status: Acute Code(s): I48.0 - PAROXYSMAL ATRIAL FIBRILLATION SNOMED Code(s): 928451590 Comment: continue rythmol, metoprolol, pradaxa (6) Seizure disorder Current Visit: No Status: Acute Code(s): G40.909 - EPILEPSY, UNSP, NOT INTRACTABLE, WITHOUT STATUS EPILEPTICUS SNOMED Code(s): 820642693 Comment: continue depakote (7) Hypertension Current Visit: No Status: Acute Code(s): I10 - ESSENTIAL (PRIMARY) HYPERTENSION SNOMED Code(s): 07923396 Comment: - Continue metoprolol, will hold lisinopril d/t UTI (8) DVT prophylaxis Current Visit: No Status: Acute Code(s): CXR7269 - SNOMED Code(s): 155059708 Comment: Pradaxa (9) DNR (do not resuscitate) Current Visit: Yes Status: Acute Status and Disposition: inpatient
[2019-02-13 06:59] LABS: ABS Eosinophils 0.1 10^3/ul (0-0.6); ABS Lymphocytes 2.5 10^3/ul (1.0-4.8); ABS Monocytes 0.8 10^3/ul (0-0.8); ABS Neutrophils 5.5 10^3/ul (1.5-7.7); Hematocrit 33 % (42-52); Hemoglobin 11.3 g/dL (14.0-18.0); Lymphocyte % 27.8 %; Mean Corpuscular HGB Conc 35 g/dL (31-36); Mean Corpuscular Hemoglobin 34 pg (27-31); Mean Corpuscular Volume 97 fL (80-94); Mean Platelet Volume 7.7 fL (7.4-10.4); Platelet Count 111 10^3/uL (150-450); Red Blood Count 3.35 10^6 /uL (4.18-5.48); Red Cell Distribution Width 17 % (10-15); White Blood Count 8.9 10^3/uL (3.5-10.8)
[2019-02-13 07:10] LABS: Calcium 8.8 mg/dL (8.6-10.3); Potassium 4.2 mmol/L (3.5-5.0)
[2019-02-13 07:16] LABS: BUN/Creatinine Ratio 25.8 (8-20); EGFR African American 99.5 (>60); EGFR Non-African American 82.2 (>60)
[2019-02-13] MEDS: DULoxetine DR CAP* 60 MG CAP.DR PO SCH (09:03)
[2019-02-13] MEDS: Carbidopa/Levodop 25/100 MG TAB(*) PO SCH ×3 (09:03→21:25)
[2019-02-13] MEDS: Furosemide TAB* 20 MG PO SCH (09:03)
[2019-02-13] MEDS: Folic Acid TAB* 1 MG PO SCH (09:03)
[2019-02-13] MEDS: predniSONE TAB* 5 MG PO SCH (09:03)
[2019-02-13] MEDS: CMCS: Dabigatran CAP(NF) 150 MG CAP PO SCH (09:03)
[2019-02-13] MEDS: Allopurinol TAB* 100 MG PO SCH ×2 (09:03→21:24)
[2019-02-13] MEDS: Metoprolol Succinate XL TAB* 50 MG PO SCH (09:03)
[2019-02-13] MEDS: lamoTRIgine TAB(*) 25 MG PO SCH (09:03)
[2019-02-13] MEDS: PROPAFENONE 425 MG PO SCH ×2 (09:04→11:50)
[2019-02-13] MEDS: PROPAFENONE 225 MG PO SCH ×2 (12:08→21:26)
[2019-02-13] MEDS: cefTRIAXone* 1 GM in NS 0.9% 50 ML BAG IVPB SCH (12:10)
--- NOTE | 2019-02-13 18:57 | PN ---
Subjective Date of Service: 02/13/19 Interval History: Mr. Dewitt denies any complaint. His family confirm that he has dementia and is at baseline. He denies any complaints. Family History: Unchanged from Admission Social History: Unchanged from Admission Past Medical History: Unchanged from Admission Objective Active Medications: Acetaminophen (Tylenol Tab*) 650 mg PO Q4H PRN Allopurinol (Zyloprim Tab*) 200 mg PO BID [facility] Calcium/Vitamin D (Oscal D Tab 250/125*) 1 tab PO BEDTIME [facility] Carbidopa/Levodopa (Sinemet 25/100 Tab(*)) 1.5 tab PO TID [facility] Dabigatran (Pradaxa Cap(Nf)) 150 mg PO BID [facility] Divalproex Sodium (Depakote Er Tab(*)) 1,500 mg PO BEDTIME [facility] Duloxetine HCl (Cymbalta Cap*) 60 mg PO DAILY [facility] Famotidine (Pepcid Tab*) 40 mg PO BEDTIME [facility] Folic Acid (Folvite Tab*) 1 mg PO DAILY [facility] Furosemide (Lasix Tab*) 20 mg PO QAM [facility] Ceftriaxone Sodium 1 gm/ (Sodium Chloride) 50 mls @ 100 mls/hr IVPB Q24H [facility] Lamotrigine (Lamictal Tab(*)) 25 mg PO DAILY [facility] Methotrexate (Methotrexate Tab*) 7.5 mg PO Fr@0900 [facility] Metoprolol Succinate (Toprol Xl Tab*) 50 mg PO QAM [facility] Prednisone (Deltasone Tab*) 5 mg PO DAILY [facility] Propafenone HCl (Rythmol Sr (Nf)) 450 mg PO BID [facility] Tamsulosin HCl (Flomax Cap*) 0.4 mg PO BEDTIME [facility] Timolol Maleate (Timoptic 0.5% Opth*) 1 drop RIGHT EYE BEDTIME [facility] Vital Signs: Temp Pulse Resp BP Pulse Ox 98.3 F 66 18 117/49 96 02/13/19 15:14 02/13/19 15:14 02/13/19 15:14 02/13/19 15:14 02/13/19 15:14 Oxygen Devices in Use Now: None Appearance: Male lying in bed in NAD Eyes: No Scleral Icterus Ears/Nose/Mouth/Throat: Mucous Membranes Moist Neck: Trachea Midline Respiratory: Symmetrical Chest Expansion and Respiratory Effort, Clear to Auscultation Cardiovascular: NL Sounds; No Murmurs; No JVD, No Edema Abdominal: NL Sounds; No Tenderness; No Distention Extremities: No Edema Skin: No Rash or Ulcers Neurological: - - Alert and oriented to self, moves all extremities equally, no facial asymmetry Nutrition: Taking PO's Result Diagrams: 02/13/19 06:30 02/13/19 06:30 Microbiology and Other Data: Microbiology 02/11/19 21:38 Urine Culture - Preliminary Urine Escherichia Coli 02/11/19 21:40 Aerobic Blood Culture - Preliminary Blood Venous Anaerobic Blood Culture - Preliminary 02/11/19 21:40 Aerobic Blood Culture - Preliminary Blood Venous Assess/Plan/Problems-Billing Assessment: Mr. Dewitt is an 79 y.o male with pmhx of Parkinson disease, seizures. afib , htn , gout who presented to the ER with altered mental status found to have a UTI and sepsis, with positive blood cultures for ecoli. - Patient Problems (1) Sepsis Comment: - Related to bacteremia from ecoli uti. (2) Bacteremia due to Gram-negative bacteria Comment: - + ecoli - Continue ceftriaxone. (3) UTI (urinary tract infection) Comment: - Urine culture with e- coli - Continue ceftriaxone for intravenous therapy given bacteremia (4) Paroxysmal A-fib Comment: - continue rythmol, metoprolol, pradaxa (5) Chronic diastolic CHF (congestive heart failure) Comment: - Continue lasix. (6) Hypertension Comment: - Continue metoprolol, will hold lisinopril d/t UTI (7) Polymyalgia rheumatica SNOMED Code(s): 92424050 (8) Parkinsons disease Comment: -Continue home dose of sinemet. (9) MICHAEL (obstructive sleep apnea) Comment: - Not Compliant with CPAP at home--last used abaout 3 yrs ago. - USes 2L NC at night (10) Seizure disorder Comment: - continue depakote (11) DVT prophylaxis Comment: Pradaxa (12) DNR (do not resuscitate) Status and Disposition: inpatient
[2019-02-13] MEDS: DABIGATRAN 150 MG PO SCH (21:25)
[2019-02-13] MEDS: Calcium/Vitamin D TAB 250/125* TAB PO SCH (21:25)
[2019-02-13] MEDS: Tamsulosin CAP* 0.4 MG PO SCH (21:26)
[2019-02-13] MEDS: Famotidine TAB* 20 MG PO SCH (21:26)
[2019-02-13] MEDS: Timolol 0.5% OPTH.SOL* BTL RIGHT EYE SCH (21:26)
[2019-02-13] MEDS: Divalproex ER TAB(*) 500 MG PO SCH (21:35)
[2019-02-14 07:54] LABS: ABS Eosinophils 0.2 10^3/ul (0-0.6); ABS Lymphocytes 2.5 10^3/ul (1.0-4.8); ABS Monocytes 0.6 10^3/ul (0-0.8); ABS Neutrophils 4.6 10^3/ul (1.5-7.7); Eosinophil % 2.5 %; Hematocrit 34 % (42-52); Hemoglobin 11.6 g/dL (14.0-18.0); Lymphocyte % 31.8 %; Mean Corpuscular HGB Conc 34 g/dL (31-36); Mean Corpuscular Hemoglobin 33 pg (27-31); Mean Corpuscular Volume 97 fL (80-94); Mean Platelet Volume 7.7 fL (7.4-10.4); Platelet Count 132 10^3/uL (150-450); Red Blood Count 3.51 10^6 /uL (4.18-5.48); Red Cell Distribution Width 17 % (10-15)
[2019-02-14 08:09] LABS: BUN/Creatinine Ratio 27.5 (8-20); Calcium 8.6 mg/dL (8.6-10.3); EGFR Non-African American 70.3 (>60)
[2019-02-14] MEDS: Metoprolol Succinate XL TAB* 50 MG PO SCH (09:41)
[2019-02-14] MEDS: PROPAFENONE 225 MG PO SCH (09:41)
[2019-02-14] MEDS: Folic Acid TAB* 1 MG PO SCH (09:42)
[2019-02-14] MEDS: Allopurinol TAB* 100 MG PO SCH (09:43)
[2019-02-14] MEDS: DABIGATRAN 150 MG PO SCH (09:43)
[2019-02-14] MEDS: DULoxetine DR CAP* 60 MG CAP.DR PO SCH (09:43)
[2019-02-14] MEDS: predniSONE TAB* 5 MG PO SCH (09:44)
[2019-02-14] MEDS: Furosemide TAB* 20 MG PO SCH (09:44)
[2019-02-14] MEDS: Carbidopa/Levodop 25/100 MG TAB(*) PO SCH ×2 (09:44→13:06)
[2019-02-14] MEDS: lamoTRIgine TAB(*) 25 MG PO SCH (09:44)
[2019-02-14] MEDS: cefTRIAXone* 1 GM in NS 0.9% 50 ML BAG IVPB SCH (10:56)
--- NOTE | 2019-02-14 14:07 | PN ---
Subjective Date of Service: 02/14/19 Interval History: Mr. Dewitt denies complaint and is eager for discharge to home. Family History: Unchanged from Admission Social History: Unchanged from Admission Past Medical History: Unchanged from Admission Objective Active Medications: Acetaminophen (Tylenol Tab*) 650 mg PO Q4H PRN Allopurinol (Zyloprim Tab*) 200 mg PO BID [facility] Calcium/Vitamin D (Oscal D Tab 250/125*) 1 tab PO BEDTIME [facility] Carbidopa/Levodopa (Sinemet 25/100 Tab(*)) 1.5 tab PO TID [facility] Dabigatran (Pradaxa Cap(Nf)) 150 mg PO BID [facility] Divalproex Sodium (Depakote Er Tab(*)) 1,500 mg PO BEDTIME [facility] Duloxetine HCl (Cymbalta Cap*) 60 mg PO DAILY [facility] Famotidine (Pepcid Tab*) 40 mg PO BEDTIME [facility] Folic Acid (Folvite Tab*) 1 mg PO DAILY [facility] Furosemide (Lasix Tab*) 20 mg PO QAM [facility] Ceftriaxone Sodium 1 gm/ (Sodium Chloride) 50 mls @ 100 mls/hr IVPB Q24H [facility] Lamotrigine (Lamictal Tab(*)) 25 mg PO DAILY [facility] Methotrexate (Methotrexate Tab*) 7.5 mg PO Fr@0900 [facility] Metoprolol Succinate (Toprol Xl Tab*) 50 mg PO QAM [facility] Prednisone (Deltasone Tab*) 5 mg PO DAILY [facility] Propafenone HCl (Rythmol Sr (Nf)) 450 mg PO BID [facility] Tamsulosin HCl (Flomax Cap*) 0.4 mg PO BEDTIME [facility] Timolol Maleate (Timoptic 0.5% Opth*) 1 drop RIGHT EYE BEDTIME [facility] Vital Signs: Temp Pulse Resp BP Pulse Ox 978.7 F 64 18 117/34 96 02/14/19 07:44 02/14/19 07:44 02/14/19 08:00 02/14/19 07:44 02/14/19 08:00 Oxygen Devices in Use Now: None Appearance: Male sitting up in bed in NAD Eyes: No Scleral Icterus Ears/Nose/Mouth/Throat: Mucous Membranes Moist Neck: Trachea Midline Respiratory: Symmetrical Chest Expansion and Respiratory Effort, Clear to Auscultation Cardiovascular: NL Sounds; No Murmurs; No JVD, No Edema Abdominal: NL Sounds; No Tenderness; No Distention Extremities: No Edema Skin: No Rash or Ulcers Neurological: NL Muscle Strength and Tone, - - Alert and oriented to self Nutrition: Taking PO's Result Diagrams: 02/14/19 07:24 02/14/19 07:24 Microbiology and Other Data: . Assess/Plan/Problems-Billing Assessment: Mr. Dewitt is an 79 y.o male with pmhx of Parkinson disease, seizures. afib , htn , gout who presented to the ER with altered mental status found to have a UTI and sepsis, with positive blood cultures for ecoli. - Patient Problems (1) Sepsis Comment: - Related to bacteremia from ecoli uti. (2) Bacteremia due to Gram-negative bacteria Comment: - + ecoli - Has been on ceftriaxone since 02/11, ok to switch to oral medications (3) UTI (urinary tract infection) Comment: - Urine culture with e- coli - Complete course of keflex (4) Paroxysmal A-fib Comment: - continue rythmol, metoprolol, pradaxa (5) Chronic diastolic CHF (congestive heart failure) Comment: - Continue lasix. (6) Hypertension Comment: - Continue metoprolol, resume lisinopril (7) Polymyalgia rheumatica SNOMED Code(s): 48292764 (8) Parkinsons disease Comment: -Continue home dose of sinemet. (9) MICHAEL (obstructive sleep apnea) Comment: - Not Compliant with CPAP at home--last used abaout 3 yrs ago. - USes 2L NC at night (10) Seizure disorder Comment: - continue depakote (11) DVT prophylaxis Comment: Pradaxa (12) DNR (do not resuscitate) Status and Disposition: Inpatient. Discharge to home
[2019-02-14 16:36] VITALS: BP 121/48
--- NOTE | 2019-02-14 21:50 | DS ---
CC: Dr. Schwartz * [facility] MEDICINE DISCHARGE SUMMARY: DATE OF ADMISSION: 02/12/19 DATE OF DISCHARGE: 02/14/19 PRIMARY CARE PHYSICIAN: Dr. Schwartz. ATTENDING PHYSICIAN: Dr. Lukasz Cintron * (dictation provided by Savana Alba NP). PRIMARY DIAGNOSIS: Sepsis secondary to E. coli bacteremia from E. coli urinary tract infection. SECONDARY DIAGNOSES: 1. History of heart failure with preserved ejection fraction. 2. History of hypertension. 3. History of gout. 4. BPH. 5. Epilepsy and seizure disorder. 6. Parkinson disease. 7. Dementia with mild cognitive impairment. 8. Paroxysmal atrial fibrillation. 9. Obstructive sleep apnea. 10. Polymyalgia rheumatica. 11. Thoracic aortic ectasia. 12. Lumbar spinal stenosis with chronic radiculopathy. PAST SURGICAL HISTORY: Includes: 1. Right total knee replacement in 2016. 2. Cholecystectomy. 3. Appendectomy. 4. Hip replacement bilaterally. 5. Right total hip replacement. MEDICATIONS: Today at discharge are: 1. Keflex 500 mg p.o. t.i.d. x5 days. 2. Ranitidine 300 mg p.o. at bedtime. 3. Prednisone 5 mg p.o. daily. 4. Timolol ophthalmic solution 0.5% 1 drop to right eye at bedtime. 5. Tamsulosin 0.4 mg p.o. at bedtime. 6. Propafenone ER 425 mg p.o. b.i.d. 7. Metoprolol succinate 50 mg p.o. q.a.m. 8. Methotrexate 7.5 mg p.o. weekly. 9. Lisinopril 2.5 mg p.o. daily. 10. Lamotrigine 25 mg p.o. daily. 11. Furosemide 20 mg p.o. q.a.m. 12. Folic acid 1 mg p.o. daily. 13. Duloxetine 60 mg p.o. daily. 14. Divalproex ER 1500 mg p.o. at bedtime. 15. Dabigatran 150 mg p.o. b.i.d. 16. Carbidopa/levodopa 25/100 one and a half tab p.o. t.i.d. 17. Calcium carbonate with vitamin D3 one tab p.o. at bedtime. 18. Allopurinol 200 mg p.o. b.i.d. 19. Tylenol 650 mg p.o. q.6 hours p.r.n. HOSPITAL COURSE: Mr. Dewitt is an an 79-year-old male who presented to the hospital on 02/12/19 with concern for episode of unresponsiveness and altered mental status. Please see dictated H and P from Dr. Rafita Blackmon for complete details. In brief, the patient was noted to be unresponsive, he felt cold, and he was then brought to the emergency room. The patient had not had any recent illnesses. Upon arrival to the ED, the patient became more alert and by the time of the hospitalist admission, he was back to his baseline, per the son. In the emergency room, he had labs, which showed white blood count of 12.7, his hemoglobin was 12 and hematocrit 37. He had a normal BUN and creatinine. He did have a fever to 100.1. He did have 1+ leukocyte esterase, positive nitrite , and positive bacteria with concern for a urinary tract infection. Mr. Dewitt was admitted to the hospital. He was placed on ceftriaxone for intravenous antibiotic coverage. He ultimately grew E. coli in the urine as well as in the blood cultures. He has been on ceftriaxone since admission. He has remained afebrile. He is back to his baseline in terms of mentation. The recommendation is that he is medically stable for discharge to home to complete a course of antibiotics with 5 additional days of Keflex. He has no pain with urination or anything else to suggest that he has a prostatitis, but certainly if he continues to have urinary tract infections, he should follow up with urology. Mr. Dewitt is medically stable for discharge to home. DISPOSITION: Home. DIET: Regular. ACTIVITY: As tolerated. FOLLOWUP PLANS: 1. Please follow up with Dr. Schwartz regarding this hospitalization. 2. Please consider followup with urology if need be regarding urinary tract infection in male patient with BPH. TIME SPENT: Approximately 60 minutes were spent on the discharge of this patient, more than half the time was spent with the patient at the bedside reviewing the events leading up to and during this hospitalization, performing the physical examination, and reviewing the plan of care. SAVANA ALBA, LARD BLEACHER [id number]/[facility] #: [id number] [facility]SING FACILITYAlida
== END 2019-02-14 17:30 | disposition home health service (06) | DRG 871 ==
LOC: ED 20:25 → MEDTELE 02-12 01:13
PROVIDERS: ADMIT Internal Medicine; ATTEND Internal Medicine
DX: A41.51 Sepsis due to Escherichia coli [E. coli] (principal); G93.41 Metabolic encephalopathy; N39.0 Urinary tract infection, site not specified; I50.32 Chronic diastolic (congestive) heart failure; B96.20 Unspecified Escherichia coli [E. coli] as the cause of diseases classified elsewhere; I11.0 Hypertensive heart disease with heart failure; M10.9 Gout, unspecified; N40.0 Benign prostatic hyperplasia without lower urinary tract symptoms; G40.909 Epilepsy, unspecified, not intractable, without status epilepticus; G20 Parkinson's disease; Z66 Do not resuscitate; F02.80 Dementia in other diseases classified elsewhere, unspecified severity, without behavioral disturbance, psychotic disturbance, mood disturbance, and anxiety; I48.0 Paroxysmal atrial fibrillation; G47.33 Obstructive sleep apnea (adult) (pediatric); M35.3 Polymyalgia rheumatica; I77.810 Thoracic aortic ectasia; M48.061 Spinal stenosis, lumbar region without neurogenic claudication; M54.16 Radiculopathy, lumbar region; Z96.643 Presence of artificial hip joint, bilateral; Z96.653 Presence of artificial knee joint, bilateral; Z79.1 Long term (current) use of non-steroidal anti-inflammatories (NSAID); Z79.52 Long term (current) use of systemic steroids; Z79.899 Other long term (current) drug therapy; Z88.0 Allergy status to penicillin; Z81.1 Family history of alcohol abuse and dependence; Z87.891 Personal history of nicotine dependence; Z99.3 Dependence on wheelchair
CPT/HCPCS: 36415; 71045; 80048; 80053; 81003; 81015; 83605; 84484; 85025; 85610; 85730; 87040; 87077; 87086; 87186; 87205; 93005; 99285; A9270-GY; G8978-GP-CL; G8979-GP-CJ; J0696; J0744; J1720; J7512; J8610

== ENCOUNTER 2019-12-18 15:15 | Inpatient (IN) ==
[2019-12-18] MEDS ORDERED: Furosemide 40 mg/4 ml IV VIAL IV SLOW PU ONE ×2 (15:55→16:11)
[2019-12-18] MEDS ORDERED: NS 0.9% 250 ml 250 ML IV ONE (15:56)
[2019-12-18 16:33] LABS: ABS Basophils 0.1 10^3/ul (0-0.2); ABS Eosinophils 0.1 10^3/ul (0-0.6); ABS Lymphocytes 1.1 10^3/ul (1.0-4.8); ABS Monocytes 0.4 10^3/ul (0-0.8); Hematocrit 39 % (42-52); Hemoglobin 12.8 g/dL (14.0-18.0); Lymphocyte % 15.9 %; Mean Corpuscular HGB Conc 33 g/dL (31-36); Mean Corpuscular Hemoglobin 32 pg (27-31); Mean Corpuscular Volume 98 fL (80-94); Mean Platelet Volume 7.6 fL (7.4-10.4); Platelet Count 149 10^3/uL (150-450); Red Blood Count 3.95 10^6 /uL (4.18-5.48); Red Cell Distribution Width 15 % (10-15); White Blood Count 6.7 10^3/uL (3.5-10.8)
[2019-12-18 16:50] LABS: ALT 6 U/L (7-52); AST 19 U/L (13-39); Albumin 3.6 g/dL (3.2-5.2); Albumin/Globulin Ratio 1.5 (1-3); Alkaline Phosphatase 193 U/L (34-104); Anion Gap 3 mmol/L (2-11); BUN/Creatinine Ratio 20.2 (8-20); Blood Urea Nitrogen 18 mg/dL (6-24); C Reactive Protein 9.22 mg/L (<8.01); CO2 Carbon Dioxide 33 mmol/L (22-32); Calcium 8.8 mg/dL (8.6-10.3); Chloride 103 mmol/L (101-111); EGFR African American 99.5 (>60); EGFR Non-African American 82.2 (>60); Globulin 2.4 g/dL (2-4); Glucose 124 mg/dL (70-100); Potassium 4.3 mmol/L (3.5-5.0); Sodium 139 mmol/L (135-145)
[2019-12-18] MEDS ORDERED: Metoprolol Tartrate 5 mg VIAL 5 ml VIAL (1 mg/ml) IV ONE ×2 (17:59→18:16)
[2019-12-18] MEDS ORDERED: Metoprolol Tartrate 5 mg VIAL 5 ml VIAL (1 mg/ml) ONE (18:00)
[2019-12-18] MEDS ORDERED: Digoxin IV 0.5 MG/2 ML AMP (0.25 MG/ML) IV SLOW PU ONE (18:40)
[2019-12-18 18:52] LABS: Troponin I 0.03 ng/mL (<0.03)
[2019-12-18] MEDS ORDERED: Diltiazem IV push/loading dose 5 MG/ML 5 ML vial (25 mg) IV SLOW PU ONE ×2 (20:21→21:44)
[2019-12-18] MEDS: Carbidopa/Levodop 25/100 MG TAB(*) PO SCH (20:35)
[2019-12-18] MEDS: Heparin 5000 UNITS/ML VIAL(*) 1 ml vial SUBCUT SCH (20:36)
[2019-12-18] MEDS: LORazepam 0.5 mg TAB (*) PO SCH (20:37)
[2019-12-18 20:44] LABS: Troponin I 0.02 ng/mL (<0.03)
[2019-12-18 21:09] LABS: Magnesium 1.6 mg/dL (1.9-2.7)
[2019-12-18] MEDS ORDERED: Magnesium Sulfate IV 3 GM in NS 0.9% 100 ml BAG 100 ML IVPB ONE (21:12)
[2019-12-18 22:21] LABS: Urine Appearance Clear; Urine Bilirubin Negative (Negative); Urine Blood 1+ (Negative); Urine Color Straw; Urine Glucose Negative (Negative); Urine Ketones Negative (Negative); Urine Nitrite Negative (Negative); Urine Protein Negative (Negative); Urine Specific Gravity 1.005 (1.010-1.030); Urine Urobilinogen Negative (Negative)
[2019-12-18 22:45] LABS: Urine Bacteria Absent (Absent); Urine Red Blood Cell Trace(0-2/hpf) (Absent); Urine White Blood Cell Absent (Absent)
[2019-12-19] MEDS: Heparin 5000 UNITS/ML VIAL(*) 1 ml vial SUBCUT SCH (05:10)
[2019-12-19 07:55] LABS: ABS Eosinophils 0.3 10^3/ul (0-0.6); ABS Lymphocytes 1.6 10^3/ul (1.0-4.8); ABS Monocytes 0.6 10^3/ul (0-0.8); Eosinophil % 4.3 %; Hematocrit 35 % (42-52); Lymphocyte % 27.3 %; Mean Corpuscular HGB Conc 34 g/dL (31-36); Mean Corpuscular Hemoglobin 33 pg (27-31); Mean Corpuscular Volume 96 fL (80-94); Mean Platelet Volume 7.8 fL (7.4-10.4); Platelet Count 145 10^3/uL (150-450); Red Blood Count 3.67 10^6 /uL (4.18-5.48); Red Cell Distribution Width 15 % (10-15); White Blood Count 5.9 10^3/uL (3.5-10.8)
[2019-12-19 08:13] LABS: BUN/Creatinine Ratio 19.5 (8-20); Calcium 8.7 mg/dL (8.6-10.3); EGFR African American 109.4 (>60); EGFR Non-African American 90.4 (>60); Potassium 3.9 mmol/L (3.5-5.0)
[2019-12-19] MEDS: LORazepam 0.5 mg TAB (*) PO SCH ×3 (08:36→19:52)
[2019-12-19] MEDS: Carbidopa/Levodop 25/100 MG TAB(*) PO SCH ×3 (08:37→16:40)
[2019-12-19] MEDS: DULoxetine DR 60 mg CAP PO SCH (08:37)
[2019-12-19] MEDS ORDERED: Perflutren Lipid Microsphere 3 ML VIAL ONE (09:31)
[2019-12-19] MEDS ORDERED: Digoxin IV 0.5 MG/2 ML AMP (0.25 MG/ML) IV SLOW PU ONE (10:50)
[2019-12-19 11:05] LABS: Digoxin 1.2 ng/ml (0.8-2.0)
[2019-12-19] MEDS ORDERED: Potassium Chlor 20 meq TAB.ER PO ONE (11:56)
[2019-12-19] MEDS ORDERED: Diltiazem IV BAG D5W Premix 125 MG/125 ML BAG IV SCH (12:00)
[2019-12-20] MEDS: Carbidopa/Levodop 25/100 MG TAB(*) PO SCH ×4 (05:49→17:18)
[2019-12-20 06:17] LABS: ABS Basophils 0.1 10^3/ul (0-0.2); ABS Eosinophils 0.2 10^3/ul (0-0.6); ABS Lymphocytes 1.6 10^3/ul (1.0-4.8); ABS Monocytes 0.7 10^3/ul (0-0.8); Eosinophil % 3.1 %; Hematocrit 36 % (42-52); Hemoglobin 11.8 g/dL (14.0-18.0); Lymphocyte % 19.8 %; Mean Corpuscular HGB Conc 33 g/dL (31-36); Mean Corpuscular Hemoglobin 32 pg (27-31); Mean Corpuscular Volume 97 fL (80-94); Mean Platelet Volume 7.8 fL (7.4-10.4); Platelet Count 142 10^3/uL (150-450); Red Blood Count 3.65 10^6 /uL (4.18-5.48); Red Cell Distribution Width 15 % (10-15); White Blood Count 8.1 10^3/uL (3.5-10.8)
[2019-12-20 06:32] LABS: BUN/Creatinine Ratio 23.7 (8-20); Calcium 8.7 mg/dL (8.6-10.3); EGFR African American 119.4 (>60); EGFR Non-African American 98.7 (>60); Magnesium 1.8 mg/dL (1.9-2.7); Potassium 4.4 mmol/L (3.5-5.0)
[2019-12-20 06:33] LABS: Digoxin 1.1 ng/ml (0.8-2.0)
[2019-12-20] MEDS ORDERED: Magnesium Sulfate IV 3 GM in NS 0.9% 100 ml BAG 100 ML IVPB ONE (08:19)
[2019-12-20] MEDS: LORazepam 0.5 mg TAB (*) PO SCH ×3 (08:44→21:17)
[2019-12-20] MEDS: DULoxetine DR 60 mg CAP PO SCH (08:44)
[2019-12-20 09:03] LABS: TSH (Thyroid Stimulating Horm) 1.88 mcIU/mL (0.34-5.60)
[2019-12-20 09:05] LABS: Free T3 2.4 pg/mL (2.5-3.9)
[2019-12-20 09:08] LABS: Free T4 1.1 ng/dL (0.61-1.12)
[2019-12-20] MEDS: CMCS:Propafenone ER 225 mg CAP (NF) 225 MG CAP.ER PO SCH ×2 (10:51→21:12)
[2019-12-20] MEDS ORDERED: Diltiazem IV BAG D5W Premix 125 MG/125 ML BAG IV SCH (20:00)
[2019-12-21] MEDS: CMCS:Propafenone ER 225 mg CAP (NF) 225 MG CAP.ER PO SCH ×3 (00:17→22:37)
[2019-12-21 06:41] LABS: ABS Basophils 0.1 10^3/ul (0-0.2); ABS Eosinophils 0.3 10^3/ul (0-0.6); ABS Lymphocytes 1.8 10^3/ul (1.0-4.8); ABS Monocytes 0.6 10^3/ul (0-0.8); Eosinophil % 4.3 %; Hematocrit 34 % (42-52); Hemoglobin 11.5 g/dL (14.0-18.0); Lymphocyte % 27.1 %; Mean Corpuscular HGB Conc 33 g/dL (31-36); Mean Corpuscular Hemoglobin 32 pg (27-31); Mean Corpuscular Volume 97 fL (80-94); Mean Platelet Volume 7.9 fL (7.4-10.4); Nucleated Red Blood Cells % 0.1; Platelet Count 144 10^3/uL (150-450); Red Blood Count 3.54 10^6 /uL (4.18-5.48); Red Cell Distribution Width 15 % (10-15); White Blood Count 6.8 10^3/uL (3.5-10.8)
[2019-12-21 06:58] LABS: BUN/Creatinine Ratio 24.3 (8-20); Calcium 8.7 mg/dL (8.6-10.3); EGFR African American 123.1 (>60); EGFR Non-African American 101.8 (>60); Potassium 4.5 mmol/L (3.5-5.0)
[2019-12-21] MEDS ORDERED: LORazepam 0.5 mg TAB (*) PO PRN (08:25)
[2019-12-21] MEDS: LORazepam 0.5 mg TAB (*) PO SCH (08:43)
[2019-12-21] MEDS: DULoxetine DR 60 mg CAP PO SCH (08:45)
[2019-12-21] MEDS: Carbidopa/Levodop 25/100 MG TAB(*) PO SCH ×3 (08:46→16:42)
[2019-12-21] MEDS ORDERED: Naloxone 0.4 mg VIAL 0.4 mg/ml 1 ml VIAL ONE (10:48)
[2019-12-21] MEDS ORDERED: Flumazenil 0.5 mg/5 ml 0.1 MG/ML 5 ml VIAL ONE (10:48)
[2019-12-21] MEDS ORDERED: fentaNYL 100 mcg/2 ml 50 MCG/ML VIAL ONE (10:48)
[2019-12-21] MEDS ORDERED: Midazolam 5 mg/5 ml VIAL 1 mg/ml 5 ml VIAL (5 mg) ONE (10:48)
[2019-12-21] MEDS: Polyethylene Glycol 3350 17 GM PACKET PO PRN (22:40)
[2019-12-22] MEDS: Carbidopa/Levodop 25/100 MG TAB(*) PO SCH ×3 (08:32→17:28)
[2019-12-22] MEDS: DULoxetine DR 60 mg CAP PO SCH (08:33)
[2019-12-22] MEDS: CMCS:Propafenone ER 225 mg CAP (NF) 225 MG CAP.ER PO SCH ×2 (08:34→20:25)
[2019-12-22] MEDS: Polyethylene Glycol 3350 17 GM PACKET PO PRN (11:38)
[2019-12-23 06:39] LABS: ABS Basophils 0.1 10^3/ul (0-0.2); ABS Eosinophils 0.3 10^3/ul (0-0.6); ABS Lymphocytes 1.9 10^3/ul (1.0-4.8); ABS Monocytes 0.8 10^3/ul (0-0.8); Eosinophil % 4.9 %; Hematocrit 34 % (42-52); Hemoglobin 11.2 g/dL (14.0-18.0); Lymphocyte % 27.6 %; Mean Corpuscular HGB Conc 34 g/dL (31-36); Mean Corpuscular Hemoglobin 32 pg (27-31); Mean Corpuscular Volume 97 fL (80-94); Mean Platelet Volume 7.6 fL (7.4-10.4); Platelet Count 155 10^3/uL (150-450); Red Blood Count 3.46 10^6 /uL (4.18-5.48); Red Cell Distribution Width 15 % (10-15); White Blood Count 6.9 10^3/uL (3.5-10.8)
[2019-12-23 06:52] LABS: BUN/Creatinine Ratio 27.4 (8-20); Calcium 8.9 mg/dL (8.6-10.3); EGFR African American 92.3 (>60); EGFR Non-African American 76.3 (>60); Magnesium 1.6 mg/dL (1.9-2.7); Potassium 3.9 mmol/L (3.5-5.0)
[2019-12-23] MEDS: Carbidopa/Levodop 25/100 MG TAB(*) PO SCH ×3 (08:17→15:59)
[2019-12-23] MEDS: CMCS:Propafenone ER 225 mg CAP (NF) 225 MG CAP.ER PO SCH ×2 (08:18→20:06)
[2019-12-23] MEDS: DULoxetine DR 60 mg CAP PO SCH (08:20)
[2019-12-23] MEDS ORDERED: Magnesium Sulfate 2 gm BAG 2 GM/50 ML BAG IVPB ONE (08:31)
[2019-12-23] MEDS ORDERED: Senna TAB 8.6 mg TAB PO PRN (10:24)
[2019-12-23] MEDS: Polyethylene Glycol 3350 17 GM PACKET PO PRN (10:25)
[2019-12-24 06:51] LABS: BUN/Creatinine Ratio 31.6 (8-20); Calcium 8.8 mg/dL (8.6-10.3); EGFR African American 92.3 (>60); EGFR Non-African American 76.3 (>60); Magnesium 1.9 mg/dL (1.9-2.7); Potassium 3.6 mmol/L (3.5-5.0)
[2019-12-24] MEDS: Carbidopa/Levodop 25/100 MG TAB(*) PO SCH ×2 (07:07→11:34)
[2019-12-24] MEDS: DULoxetine DR 60 mg CAP PO SCH (08:03)
[2019-12-24] MEDS: CMCS:Propafenone ER 225 mg CAP (NF) 225 MG CAP.ER PO SCH (08:06)
[2019-12-24 15:22] VITALS: BP 113/53
== END 2019-12-24 16:40 | disposition home or self-care (01) | DRG 291 ==
LOC: ED 15:15 → MEDTELE 18:00
PROVIDERS: ADMIT Internal Medicine; ATTEND Hospitalist

== ENCOUNTER 2021-12-23 20:11 | Observation (INO) ==
[2021-12-23] MEDS ORDERED: Tetan/Diph/Pertus SYR(Tdap) 0.5 ML SYR(BOOSTRIX) use SYR contains LATEX IM ONE (20:44)
[2021-12-23 22:29] LABS: ABS Eosinophils 0.3 10^3/ul (0-0.6); ABS Lymphocytes 1.6 10^3/ul (1.0-4.8); ABS Monocytes 0.6 10^3/ul (0-0.8); ABS Neutrophils 5.6 10^3/ul (1.5-7.7); Eosinophil % 3.2 %; Hematocrit 36 % (42-52); Hemoglobin 12.3 g/dL (14.0-18.0); INR 1.21 (0.86-1.15); Lymphocyte % 19.6 %; Mean Corpuscular HGB Conc 34 g/dL (31-36); Mean Corpuscular Hemoglobin 34 pg (27-31); Mean Corpuscular Volume 100 fL (80-94); Mean Platelet Volume 8.1 fL (7.4-10.4); Platelet Count 126 10^3/uL (150-450); Red Blood Count 3.64 10^6 /uL (4.18-5.48); Red Cell Distribution Width 15 % (10-15); White Blood Count 8.1 10^3/uL (3.5-10.8)
[2021-12-23 22:49] LABS: High Sens Troponin Baseline 19 pg/mL (<20)
[2021-12-23 23:05] LABS: ALT < 3 U/L (7-52); AST 11 U/L (13-39); Albumin 3.9 g/dL (3.2-5.2); Albumin/Globulin Ratio 1.4 (1-3); Alkaline Phosphatase 161 U/L (35-149); Anion Gap 3 mmol/L (2-11); Blood Urea Nitrogen 28 mg/dL (6-24); CO2 Carbon Dioxide 36 mmol/L (22-32); Calcium 9.1 mg/dL (8.6-10.3); Chloride 101 mmol/L (101-111); Creatine Kinase 60 U/L (10-223); Globulin 2.8 g/dL (2-4); Glucose 105 mg/dL (70-100); Sodium 140 mmol/L (135-145); Total Protein 6.7 g/dL (6.4-8.9); eGFR CKD-EPI 59.8 (>60)
[2021-12-24 00:01] LABS: High Sensitivity Troponin 1 Hr 18 pg/mL (<20)
[2021-12-24 00:07] LABS: Urine Appearance Clear; Urine Bilirubin Negative (Negative); Urine Blood Negative (Negative); Urine Color Yellow; Urine Glucose Negative (Negative); Urine Ketones Trace (Negative); Urine Nitrite Negative (Negative); Urine Protein Negative (Negative); Urine Urobilinogen Negative (Negative)
[2021-12-24] MEDS ORDERED: Polyethylene Glycol 3350 17 GM PACKET PO PRN (02:01)
[2021-12-24] MEDS: PROPAFENONE 225 MG PO SCH ×2 (12:16→21:15)
[2021-12-24] MEDS: DULoxetine DR 60 mg CAP PO SCH (12:18)
[2021-12-24] MEDS: Carbidopa/Levodop 25/100 MG TAB PO SCH ×3 (12:22→21:11)
[2021-12-24] MEDS ORDERED: Perflutren Lipid Microsphere 3 ML VIAL ONE (14:23)
[2021-12-24] MEDS ORDERED: Timolol 0.5% OPTH.SOL BTL RIGHT EYE SCH (21:00)
[2021-12-25 05:32] LABS: ABS Eosinophils 0.3 10^3/ul (0-0.6); ABS Monocytes 0.5 10^3/ul (0-0.8); Eosinophil % 3.5 %; Hematocrit 34 % (42-52); Hemoglobin 11.4 g/dL (14.0-18.0); Lymphocyte % 25.3 %; Mean Corpuscular HGB Conc 34 g/dL (31-36); Mean Corpuscular Hemoglobin 34 pg (27-31); Mean Corpuscular Volume 100 fL (80-94); Mean Platelet Volume 8.4 fL (7.4-10.4); Platelet Count 126 10^3/uL (150-450); Red Blood Count 3.36 10^6 /uL (4.18-5.48); Red Cell Distribution Width 15 % (10-15); White Blood Count 7.8 10^3/uL (3.5-10.8)
[2021-12-25 05:54] LABS: C Reactive Protein 5.87 mg/L (<8.01); Calcium 8.7 mg/dL (8.6-10.3); Magnesium 1.9 mg/dL (1.9-2.7); eGFR CKD-EPI 85.6 (>60)
[2021-12-25] MEDS: PROPAFENONE 225 MG PO SCH (08:16)
[2021-12-25] MEDS: DULoxetine DR 60 mg CAP PO SCH (08:17)
[2021-12-25] MEDS: Carbidopa/Levodop 25/100 MG TAB PO SCH ×2 (08:18→13:21)
[2021-12-25 14:37] VITALS: BP 90/52
== END 2021-12-25 15:30 | disposition home or self-care (01) ==
LOC: EDHOLD 20:11 → ED 20:11 → SUATTDRO 12-24 01:47 → EDHOLD 12-24 08:18 → MED 12-24 10:10
PROVIDERS: ADMIT Internal Medicine; ATTEND Student in an Organized Health Care Education/Training Program

== ENCOUNTER 2023-02-21 18:07 | Inpatient (IN) ==
[2023-02-21 19:43] LABS: ABS Basophils 0.1 10^3/uL (0.0-0.1); ABS Eosinophils 0.2 10^3/uL (0.0-0.5); ABS Monocytes 0.5 10^3/uL (0.0-1.1); ABS Neutrophils 4.9 10^3/uL (1.5-7.6); Eosinophil % 2.2 %; Hematocrit 34.9 % (38-53); Hemoglobin 11.9 g/dL (13.2-16.3); Lymphocyte % 26.2 %; Mean Corpuscular Hemoglobin 34.6 pg (27-33); Mean Corpuscular Hgb Conc 34.2 g/dL (31-36); Mean Platelet Volume 7.4 fL (7.5-11.2); Platelet Count 180 10^3/uL (150-450); Red Blood Count 3.45 10^6/uL (4.06-5.63); Red Cell Distribution Width 14.5 % (12-17); White Blood Count 7.6 10^3/uL (3.6-10.2)
[2023-02-21 19:55] LABS: Urine Appearance Clear; Urine Bilirubin Negative (Negative); Urine Blood Negative (Negative); Urine Color Yellow; Urine Glucose Negative (Negative); Urine Ketones Negative (Negative); Urine Nitrite Negative (Negative); Urine Protein Negative (Negative); Urine Specific Gravity 1.006 (1.002-1.030); Urine Urobilinogen Negative (Negative)
[2023-02-21 19:59] LABS: Albumin 3.7 g/dL (3.2-5.2); Albumin/Globulin Ratio 1.3 (1-3); Calcium 9.1 mg/dL (8.6-10.3); Creatinine, Serum 0.91 mg/dL (0.67-1.17); Globulin 2.8 g/dL (2-4); Magnesium 1.8 mg/dL (1.9-2.7); Phosphorus 3.4 mg/dL (2.5-5.0); Potassium 4.5 mmol/L (3.5-5.0); Total Bilirubin 0.6 mg/dL (0.2-1.0); Total Protein 6.5 g/dL (6.4-8.9); eGFR CKD-EPI 83.1 (>60)
[2023-02-21 20:56] LABS: High Sensitivity Troponin 1 Hr 28 pg/mL (<20)
[2023-02-22] MEDS ORDERED: Senna TAB 8.6 mg TAB PO PRN (00:10)
[2023-02-22] MEDS: Carbidopa/Levodop 25/100 MG TAB PO SCH ×4 (01:05→22:21)
[2023-02-22] MEDS: Senna TAB 8.6 mg TAB PO SCH ×2 (01:05→22:20)
[2023-02-22] MEDS: DULoxetine DR 60 mg CAP PO SCH (09:40)
[2023-02-22] MEDS ORDERED: NS 0.9% 250 ml 250 ML IV SCH (16:00)
[2023-02-23 07:32] LABS: ABS Eosinophils 0.3 10^3/uL (0.0-0.5); ABS Lymphocytes 1.7 10^3/uL (1.0-4.8); ABS Monocytes 0.6 10^3/uL (0.0-1.1); ABS Neutrophils 5.7 10^3/uL (1.5-7.6); Eosinophil % 3.2 %; Hematocrit 30.6 % (38-53); Hemoglobin 10.7 g/dL (13.2-16.3); Lymphocyte % 20.9 %; Mean Corpuscular Hemoglobin 34.9 pg (27-33); Mean Corpuscular Volume 99.9 fL (80-97); Mean Platelet Volume 7.4 fL (7.5-11.2); Nucleated Red Blood Cells % 0.1 /100 WBC (0.0-0.4); Platelet Count 159 10^3/uL (150-450); Red Blood Count 3.07 10^6/uL (4.06-5.63); Red Cell Distribution Width 14.5 % (12-17); White Blood Count 8.3 10^3/uL (3.6-10.2)
[2023-02-23 07:33] LABS: Albumin 2.9 g/dL (3.2-5.2); Albumin/Globulin Ratio 1.2 (1-3); Calcium 8.3 mg/dL (8.6-10.3); Creatinine, Serum 0.83 mg/dL (0.67-1.17); Globulin 2.4 g/dL (2-4); Potassium 4.4 mmol/L (3.5-5.0); Total Bilirubin 0.4 mg/dL (0.2-1.0); Total Protein 5.3 g/dL (6.4-8.9); eGFR CKD-EPI 86.3 (>60)
[2023-02-23] MEDS: Carbidopa/Levodop 25/100 MG TAB PO SCH ×3 (10:35→22:28)
[2023-02-23] MEDS: DULoxetine DR 60 mg CAP PO SCH (10:35)
[2023-02-23] MEDS: Senna TAB 8.6 mg TAB PO SCH (22:33)
[2023-02-24 07:12] LABS: AST 9 U/L (13-39); Albumin 2.9 g/dL (3.2-5.2); Albumin/Globulin Ratio 1.2 (1-3); Alkaline Phosphatase 179 U/L (35-149); Anion Gap 3 mmol/L (2-16); Blood Urea Nitrogen 19 mg/dL (6-24); CO2 Carbon Dioxide 34 mmol/L (22-32); Calcium 8.3 mg/dL (8.6-10.3); Chloride 104 mmol/L (101-111); Globulin 2.4 g/dL (2-4); Glucose 97 mg/dL (70-100); Potassium 4.1 mmol/L (3.5-5.0); Sodium 141 mmol/L (135-145); Total Protein 5.3 g/dL (6.4-8.9); eGFR CKD-EPI 90.9 (>60)
[2023-02-24 07:47] LABS: ALT < 3 U/L (7-52)
[2023-02-24 08:29] LABS: ABS Eosinophils 0.3 10^3/uL (0.0-0.5); ABS Lymphocytes 1.9 10^3/uL (1.0-4.8); ABS Monocytes 0.6 10^3/uL (0.0-1.1); ABS Neutrophils 4.9 10^3/uL (1.5-7.6); ABS Nucleated RBC 0.01 10^3/ul; Eosinophil % 3.3 %; Hematocrit 31.6 % (38-53); Lymphocyte % 24.3 %; Mean Corpuscular Hemoglobin 34.9 pg (27-33); Mean Corpuscular Hgb Conc 34.7 g/dL (31-36); Mean Corpuscular Volume 100.5 fL (80-97); Mean Platelet Volume 7.6 fL (7.5-11.2); Nucleated Red Blood Cells % 0.2 /100 WBC (0.0-0.4); Platelet Count 147 10^3/uL (150-450); Red Blood Count 3.15 10^6/uL (4.06-5.63); Red Cell Distribution Width 14.6 % (12-17); White Blood Count 7.7 10^3/uL (3.6-10.2)
[2023-02-24] MEDS: Carbidopa/Levodop 25/100 MG TAB PO SCH ×3 (09:40→22:27)
[2023-02-24] MEDS: DULoxetine DR 60 mg CAP PO SCH (09:40)
[2023-02-24] MEDS ORDERED: Vancomycin 1,500 MG in NS 0.9% 250 ml 250 ML IVPB ONE (14:22)
[2023-02-24] MEDS: Cefepime 2 GM in Dextrose 2 GM/50 ML BAG IV SCH (14:51)
[2023-02-24] MEDS ORDERED: Vancomycin per Pharmacy 1 EA NOTE FOLLOW UP SCH (15:00)
[2023-02-24 15:17] LABS: ABS Eosinophils 0.1 10^3/uL (0.0-0.5); ABS Lymphocytes 0.9 10^3/uL (1.0-4.8); ABS Monocytes 1.3 10^3/uL (0.0-1.1); ABS Neutrophils 13.4 10^3/uL (1.5-7.6); ABS Nucleated RBC 0.01 10^3/ul; Eosinophil % 0.8 %; Hematocrit 33.6 % (38-53); Hemoglobin 11.5 g/dL (13.2-16.3); Lymphocyte % 5.9 %; Mean Corpuscular Hemoglobin 34.2 pg (27-33); Mean Corpuscular Hgb Conc 34.1 g/dL (31-36); Mean Corpuscular Volume 100.3 fL (80-97); Mean Platelet Volume 7.6 fL (7.5-11.2); Platelet Count 178 10^3/uL (150-450); Red Blood Count 3.35 10^6/uL (4.06-5.63); Red Cell Distribution Width 14.5 % (12-17); White Blood Count 15.7 10^3/uL (3.6-10.2)
[2023-02-24 15:19] LABS: Urine Appearance Cloudy; Urine Bilirubin Negative (Negative); Urine Blood 2+ (Negative); Urine Color Yellow; Urine Glucose Negative (Negative); Urine Ketones Trace (Negative); Urine Nitrite Negative (Negative); Urine Protein 1+(30 mg/dL) (Negative); Urine Specific Gravity 1.019 (1.002-1.030); Urine Urobilinogen Negative (Negative)
[2023-02-24 15:27] LABS: Urine Bacteria 1+ (Absent); Urine Red Blood Cell 3+(>10/hpf) (Absent); Urine Squamous Epithelial Cell Present (Absent); Urine White Blood Cell 3+(>20/hpf) (Absent)
[2023-02-24] MEDS ORDERED: NS 0.9% 1000 ml BAG 1,000 ML IV ONE (15:27)
[2023-02-24 15:37] LABS: Albumin 3.3 g/dL (3.2-5.2); Albumin/Globulin Ratio 1.3 (1-3); Calcium 8.8 mg/dL (8.6-10.3); Creatinine, Serum 0.79 mg/dL (0.67-1.17); Globulin 2.5 g/dL (2-4); Magnesium 1.6 mg/dL (1.9-2.7); Potassium 4.5 mmol/L (3.5-5.0); Total Bilirubin 0.6 mg/dL (0.2-1.0); Total Protein 5.8 g/dL (6.4-8.9); eGFR CKD-EPI 87.6 (>60)
[2023-02-24] MEDS ORDERED: Magnesium Sulfate IV 3 GM in NS 0.9% 100 ml BAG 100 ML IVPB ONE (15:50)
[2023-02-24] MEDS ORDERED: Albumin Human 5% 12.5 GM/250 ML BTL IV ONE (18:16)
[2023-02-24 19:22] LABS: Folate > 20.00 ng/mL (5.90-24.80)
[2023-02-24 19:23] LABS: Vitamin B12 430 pg/mL (180-914)
[2023-02-24] MEDS ORDERED: Metoprolol Tartrate 5 mg VIAL 5 ml VIAL (1 mg/ml) IV PRN (20:50)
[2023-02-24] MEDS: Senna TAB 8.6 mg TAB PO SCH (22:27)
[2023-02-25] MEDS: Cefepime 2 GM in Dextrose 2 GM/50 ML BAG IV SCH ×2 (03:04→15:45)
[2023-02-25] MEDS ORDERED: Lactated Ringers 1000 ml BAG 500 ML IV ONE (03:55)
[2023-02-25 05:10] LABS: ABS Basophils 0.1 10^3/uL (0.0-0.1); ABS Eosinophils 0.1 10^3/uL (0.0-0.5); ABS Lymphocytes 2.2 10^3/uL (1.0-4.8); ABS Monocytes 1.4 10^3/uL (0.0-1.1); ABS Neutrophils 14.1 10^3/uL (1.5-7.6); Eosinophil % 0.7 %; Hematocrit 29.7 % (38-53); Hemoglobin 10.1 g/dL (13.2-16.3); Lymphocyte % 12.5 %; Mean Corpuscular Hgb Conc 34.1 g/dL (31-36); Mean Platelet Volume 7.4 fL (7.5-11.2); Platelet Count 129 10^3/uL (150-450); Red Blood Count 2.97 10^6/uL (4.06-5.63); Red Cell Distribution Width 14.9 % (12-17)
[2023-02-25 05:25] LABS: Albumin 2.7 g/dL (3.2-5.2); Albumin/Globulin Ratio 1.2 (1-3); C Reactive Protein 80.31 mg/L (<8.01); Calcium 7.4 mg/dL (8.6-10.3); Creatinine, Serum 0.66 mg/dL (0.67-1.17); Globulin 2.2 g/dL (2-4); Magnesium 2.1 mg/dL (1.9-2.7); Potassium 4.3 mmol/L (3.5-5.0); Total Bilirubin 0.7 mg/dL (0.2-1.0); Total Protein 4.9 g/dL (6.4-8.9); eGFR CKD-EPI 92.5 (>60)
[2023-02-25] MEDS ORDERED: Albumin Human 5% 12.5 GM/250 ML BTL IV ONE (09:35)
[2023-02-25] MEDS: DULoxetine DR 60 mg CAP PO SCH (09:37)
[2023-02-25] MEDS: Carbidopa/Levodop 25/100 MG TAB PO SCH ×3 (09:37→20:25)
[2023-02-25] MEDS: Senna TAB 8.6 mg TAB PO SCH (20:24)
[2023-02-26] MEDS: Cefepime 2 GM in Dextrose 2 GM/50 ML BAG IV SCH (03:39)
[2023-02-26 05:07] LABS: ABS Basophils 0.1 10^3/uL (0.0-0.1); ABS Eosinophils 0.2 10^3/uL (0.0-0.5); ABS Lymphocytes 1.5 10^3/uL (1.0-4.8); ABS Monocytes 0.8 10^3/uL (0.0-1.1); ABS Nucleated RBC 0.01 10^3/ul; Eosinophil % 1.7 %; Hematocrit 29.5 % (38-53); Lymphocyte % 12.9 %; Mean Corpuscular Hemoglobin 34.2 pg (27-33); Mean Corpuscular Hgb Conc 34.1 g/dL (31-36); Mean Corpuscular Volume 100.4 fL (80-97); Mean Platelet Volume 7.7 fL (7.5-11.2); Nucleated Red Blood Cells % 0.1 /100 WBC (0.0-0.4); Platelet Count 141 10^3/uL (150-450); Red Blood Count 2.93 10^6/uL (4.06-5.63); Red Cell Distribution Width 14.6 % (12-17); White Blood Count 11.5 10^3/uL (3.6-10.2)
[2023-02-26 05:25] LABS: Calcium 7.7 mg/dL (8.6-10.3); Creatinine, Serum 0.6 mg/dL (0.67-1.17); Potassium 3.9 mmol/L (3.5-5.0); eGFR CKD-EPI 95.2 (>60)
[2023-02-26] MEDS: DULoxetine DR 60 mg CAP PO SCH (09:54)
[2023-02-26] MEDS: Carbidopa/Levodop 25/100 MG TAB PO SCH ×3 (09:56→20:43)
[2023-02-26] MEDS: cefTRIAXone 2 gm/50 mL D5W 2 GM/50 ML BAG IV SCH ×2 (12:31→14:56)
[2023-02-26] MEDS: Senna TAB 8.6 mg TAB PO SCH ×2 (20:43→20:45)
[2023-02-27 05:42] LABS: ABS Eosinophils 0.2 10^3/uL (0.0-0.5); ABS Lymphocytes 1.8 10^3/uL (1.0-4.8); ABS Monocytes 0.7 10^3/uL (0.0-1.1); ABS Neutrophils 5.8 10^3/uL (1.5-7.6); ABS Nucleated RBC 0.01 10^3/ul; Eosinophil % 2.7 %; Hematocrit 30.1 % (38-53); Hemoglobin 10.5 g/dL (13.2-16.3); Lymphocyte % 20.7 %; Mean Corpuscular Hemoglobin 34.7 pg (27-33); Mean Corpuscular Hgb Conc 34.8 g/dL (31-36); Mean Corpuscular Volume 99.7 fL (80-97); Mean Platelet Volume 7.8 fL (7.5-11.2); Nucleated Red Blood Cells % 0.1 /100 WBC (0.0-0.4); Platelet Count 162 10^3/uL (150-450); Red Blood Count 3.02 10^6/uL (4.06-5.63); Red Cell Distribution Width 14.7 % (12-17); White Blood Count 8.5 10^3/uL (3.6-10.2)
[2023-02-27 06:04] LABS: Calcium 8.5 mg/dL (8.6-10.3); Creatinine, Serum 0.55 mg/dL (0.67-1.17); Potassium 4.1 mmol/L (3.5-5.0); eGFR CKD-EPI 97.7 (>60)
[2023-02-27] MEDS: DULoxetine DR 60 mg CAP PO SCH (11:22)
[2023-02-27] MEDS: Carbidopa/Levodop 25/100 MG TAB PO SCH ×3 (11:30→19:45)
[2023-02-27] MEDS: cefTRIAXone 2 gm/50 mL D5W 2 GM/50 ML BAG IV SCH (12:43)
[2023-02-27] MEDS: Senna TAB 8.6 mg TAB PO SCH (19:46)
[2023-02-28 06:15] LABS: ABS Eosinophils 0.2 10^3/uL (0.0-0.5); ABS Lymphocytes 1.4 10^3/uL (1.0-4.8); ABS Monocytes 0.9 10^3/uL (0.0-1.1); ABS Neutrophils 8.4 10^3/uL (1.5-7.6); Eosinophil % 1.8 %; Lymphocyte % 12.7 %; Mean Corpuscular Hemoglobin 34.5 pg (27-33); Mean Corpuscular Hgb Conc 34.3 g/dL (31-36); Mean Corpuscular Volume 100.6 fL (80-97); Mean Platelet Volume 7.7 fL (7.5-11.2); Platelet Count 164 10^3/uL (150-450); Red Blood Count 3.18 10^6/uL (4.06-5.63); Red Cell Distribution Width 14.6 % (12-17); White Blood Count 10.9 10^3/uL (3.6-10.2)
[2023-02-28 06:45] LABS: Albumin/Globulin Ratio 1.2 (1-3); C Reactive Protein 48.31 mg/L (<8.01); Calcium 8.5 mg/dL (8.6-10.3); Creatinine, Serum 0.56 mg/dL (0.67-1.17); Globulin 2.6 g/dL (2-4); Magnesium 1.8 mg/dL (1.9-2.7); Potassium 4.1 mmol/L (3.5-5.0); Total Bilirubin 0.5 mg/dL (0.2-1.0); Total Protein 5.6 g/dL (6.4-8.9); eGFR CKD-EPI 97.2 (>60)
[2023-02-28] MEDS ORDERED: Magnesium Sulfate IV 1GM/100ML 1 GM/100 ML BAG IV ONE (08:00)
[2023-02-28] MEDS: cefTRIAXone 1 gm/50 mL D5W 1 GM/50 ML BAG IV SCH (09:06)
[2023-02-28] MEDS: Carbidopa/Levodop 25/100 MG TAB PO SCH ×3 (09:08→21:07)
[2023-02-28] MEDS: DULoxetine DR 60 mg CAP PO SCH (09:08)
[2023-02-28] MEDS: Senna TAB 8.6 mg TAB PO SCH (21:07)
[2023-03-01 07:48] LABS: ABS Basophils 0.1 10^3/uL (0.0-0.1); ABS Eosinophils 0.2 10^3/uL (0.0-0.5); ABS Lymphocytes 1.4 10^3/uL (1.0-4.8); ABS Neutrophils 9.7 10^3/uL (1.5-7.6); Eosinophil % 1.2 %; Hematocrit 30.5 % (38-53); Hemoglobin 10.5 g/dL (13.2-16.3); Lymphocyte % 11.6 %; Mean Corpuscular Hemoglobin 34.5 pg (27-33); Mean Corpuscular Hgb Conc 34.4 g/dL (31-36); Mean Corpuscular Volume 100.3 fL (80-97); Mean Platelet Volume 7.6 fL (7.5-11.2); Platelet Count 177 10^3/uL (150-450); Red Blood Count 3.04 10^6/uL (4.06-5.63); White Blood Count 12.4 10^3/uL (3.6-10.2)
[2023-03-01 07:56] LABS: Creatinine, Serum 0.63 mg/dL (0.67-1.17); Magnesium 1.7 mg/dL (1.9-2.7); Potassium 4.5 mmol/L (3.5-5.0); eGFR CKD-EPI 93.8 (>60)
[2023-03-01] MEDS: Carbidopa/Levodop 25/100 MG TAB PO SCH ×3 (09:39→22:19)
[2023-03-01] MEDS: DULoxetine DR 60 mg CAP PO SCH (09:41)
[2023-03-01] MEDS: cefTRIAXone 1 gm/50 mL D5W 1 GM/50 ML BAG IV SCH (10:04)
[2023-03-01 12:25] LABS: PCO2 Arterial 45 mmHg (35-45); PO2 Arterial 116 mmHg (80-100)
[2023-03-01] MEDS: Senna TAB 8.6 mg TAB PO SCH (22:19)
[2023-03-02 06:26] LABS: ABS Eosinophils 0.1 10^3/uL (0.0-0.5); ABS Lymphocytes 1.4 10^3/uL (1.0-4.8); ABS Monocytes 1.3 10^3/uL (0.0-1.1); ABS Neutrophils 12.5 10^3/uL (1.5-7.6); Eosinophil % 0.6 %; Hematocrit 33.7 % (38-53); Hemoglobin 11.4 g/dL (13.2-16.3); Lymphocyte % 9.1 %; Mean Corpuscular Hgb Conc 33.7 g/dL (31-36); Mean Corpuscular Volume 100.8 fL (80-97); Mean Platelet Volume 7.5 fL (7.5-11.2); Platelet Count 185 10^3/uL (150-450); Red Blood Count 3.34 10^6/uL (4.06-5.63); White Blood Count 15.4 10^3/uL (3.6-10.2)
[2023-03-02 06:46] LABS: Creatinine, Serum 0.75 mg/dL (0.67-1.17); Magnesium 1.7 mg/dL (1.9-2.7)
[2023-03-02] MEDS: cefTRIAXone 1 gm/50 mL D5W 1 GM/50 ML BAG IV SCH (08:26)
[2023-03-02] MEDS: Carbidopa/Levodop 25/100 MG TAB PO SCH ×3 (08:28→20:11)
[2023-03-02] MEDS: DULoxetine DR 60 mg CAP PO SCH (08:28)
[2023-03-02] MEDS ORDERED: Magnesium Sulfate 2 gm BAG 2 GM/50 ML BAG IVPB ONE (11:15)
[2023-03-02] MEDS: Senna TAB 8.6 mg TAB PO SCH (19:26)
[2023-03-02] MEDS: Acetaminophen IV 1 GM/100ML 1,000 MG/100 ML BAG IV PRN (19:46)
[2023-03-02] MEDS: Vancomycin SOL ORALSYR 50 MG/ML ML PO SCH (23:07)
[2023-03-03] MEDS ORDERED: Lactated Ringers 1000 ml BAG 1,000 ML IV ONE ×3 (02:33→22:41)
[2023-03-03] MEDS: Acetaminophen IV 1 GM/100ML 1,000 MG/100 ML BAG IV PRN ×2 (05:38→18:34)
[2023-03-03 06:33] LABS: Calcium 7.5 mg/dL (8.6-10.3); Creatinine, Serum 1.36 mg/dL (0.67-1.17); Magnesium 2.1 mg/dL (1.9-2.7); eGFR CKD-EPI 51.3 (>60)
[2023-03-03 06:39] LABS: ABS Eosinophils 0.1 10^3/uL (0.0-0.5); ABS Lymphocytes 1.2 10^3/uL (1.0-4.8); ABS Monocytes 1.2 10^3/uL (0.0-1.1); ABS Neutrophils 14.5 10^3/uL (1.5-7.6); ABS Nucleated RBC 0.01 10^3/ul; Eosinophil % 0.5 %; Hematocrit 34.7 % (38-53); Hemoglobin 11.6 g/dL (13.2-16.3); Lymphocyte % 6.9 %; Mean Corpuscular Hgb Conc 33.6 g/dL (31-36); Mean Corpuscular Volume 101.3 fL (80-97); Mean Platelet Volume 7.5 fL (7.5-11.2); Platelet Count 162 10^3/uL (150-450); Red Blood Count 3.42 10^6/uL (4.06-5.63); Red Cell Distribution Width 14.8 % (12-17)
[2023-03-03] MEDS: DULoxetine DR 60 mg CAP PO SCH ×2 (11:21→11:32)
[2023-03-03] MEDS: Vancomycin SOL ORALSYR 50 MG/ML ML PO SCH ×5 (11:23→21:52)
[2023-03-03] MEDS: Carbidopa/Levodop 25/100 MG TAB PO SCH ×4 (11:23→21:40)
[2023-03-03] MEDS ORDERED: Lactated Ringers 1000 ml BAG 500 ML IV ONE (20:55)
[2023-03-03 21:43] LABS: Calcium 7.9 mg/dL (8.6-10.3); Creatinine, Serum 1.47 mg/dL (0.67-1.17); Magnesium 2.2 mg/dL (1.9-2.7); Potassium 4.1 mmol/L (3.5-5.0); eGFR CKD-EPI 46.7 (>60)
[2023-03-03] MEDS: Senna TAB 8.6 mg TAB PO SCH (21:49)
[2023-03-03] MEDS ORDERED: Iodixanol (CONTRAST) 320 MG/ML 100 ML SDV IV ONE (23:53)
[2023-03-04] MEDS ORDERED: Cefepime 2 GM in Dextrose 2 GM/50 ML BAG IV SCH
[2023-03-04] MEDS ORDERED: .Amiodarone 24HR ONLY IV Protocol Order Note IV ONE (01:32)
[2023-03-04] MEDS ORDERED: Amiodarone 150 mg IVPREMIX 150 MG/100 ML BAG IV ONE (01:32)
[2023-03-04] MEDS: metroNIDAZOLE IV 500 MG/100ML 500 MG/100 ML BAG IVPB SCH ×3 (01:39→18:38)
[2023-03-04] MEDS ORDERED: Amiodarone 360 MG IVPREMIX 360 MG/200 ML BAG IV SCH (01:45)
[2023-03-04 04:59] LABS: ABS Basophils 0.1 10^3/uL (0.0-0.1); ABS Eosinophils 0.3 10^3/uL (0.0-0.5); ABS Lymphocytes 1.3 10^3/uL (1.0-4.8); ABS Monocytes 0.8 10^3/uL (0.0-1.1); ABS Neutrophils 13.9 10^3/uL (1.5-7.6); Eosinophil % 1.6 %; Hematocrit 30.3 % (38-53); Hemoglobin 10.4 g/dL (13.2-16.3); Lymphocyte % 8.1 %; Mean Corpuscular Hemoglobin 34.3 pg (27-33); Mean Corpuscular Hgb Conc 34.4 g/dL (31-36); Mean Corpuscular Volume 99.8 fL (80-97); Mean Platelet Volume 7.4 fL (7.5-11.2); Platelet Count 182 10^3/uL (150-450); Red Blood Count 3.04 10^6/uL (4.06-5.63); Red Cell Distribution Width 14.7 % (12-17); White Blood Count 16.3 10^3/uL (3.6-10.2)
[2023-03-04 05:01] LABS: Urine Appearance Cloudy; Urine Bilirubin Negative (Negative); Urine Blood Negative (Negative); Urine Color Amber; Urine Glucose Negative (Negative); Urine Ketones Trace (Negative); Urine Nitrite Negative (Negative); Urine Protein Negative (Negative); Urine Specific Gravity 1.029 (1.002-1.030); Urine Urobilinogen Negative (Negative)
[2023-03-04 05:15] LABS: Creatinine, Serum 1.07 mg/dL (0.67-1.17); Magnesium 1.7 mg/dL (1.9-2.7); Potassium 3.1 mmol/L (3.5-5.0); eGFR CKD-EPI 68.4 (>60)
[2023-03-04 05:18] LABS: Calcium 6.1 mg/dL (8.6-10.3)
[2023-03-04] MEDS ORDERED: Magnesium Sulfate 2 gm BAG 2 GM/50 ML BAG IVPB ONE (05:22)
[2023-03-04] MEDS: KCL 20 MEQ/100 ML IVPREMIX 20 MEQ/100 ML BAG IV SCH ×2 (06:24→08:37)
[2023-03-04] MEDS: Amiodarone 360 MG IVPREMIX 360 MG/200 ML BAG IV SCH ×2 (08:35→20:39)
[2023-03-04] MEDS: Carbidopa/Levodop 25/100 MG TAB PO SCH ×3 (08:37→20:37)
[2023-03-04] MEDS: DULoxetine DR 60 mg CAP PO SCH (08:37)
[2023-03-04] MEDS: Vancomycin SOL ORALSYR 50 MG/ML ML PO SCH ×4 (08:51→21:21)
[2023-03-04] MEDS ORDERED: Enoxaparin 40 MG/0.4 ML SYR SUBCUT SCH (09:00)
[2023-03-04 14:55] LABS: Creatinine, Serum 1.22 mg/dL (0.67-1.17); Potassium 4.2 mmol/L (3.5-5.0); eGFR CKD-EPI 58.5 (>60)
[2023-03-04] MEDS: Senna TAB 8.6 mg TAB PO SCH (20:45)
[2023-03-05] MEDS: metroNIDAZOLE IV 500 MG/100ML 500 MG/100 ML BAG IVPB SCH ×3 (00:43→16:14)
[2023-03-05 04:52] LABS: ABS Eosinophils 0.3 10^3/uL (0.0-0.5); ABS Lymphocytes 1.1 10^3/uL (1.0-4.8); ABS Monocytes 0.8 10^3/uL (0.0-1.1); ABS Neutrophils 12.7 10^3/uL (1.5-7.6); ABS Nucleated RBC 0.01 10^3/ul; Eosinophil % 1.8 %; Hematocrit 32.4 % (38-53); Lymphocyte % 7.2 %; Mean Corpuscular Hemoglobin 33.9 pg (27-33); Mean Corpuscular Hgb Conc 34.1 g/dL (31-36); Mean Corpuscular Volume 99.6 fL (80-97); Mean Platelet Volume 7.6 fL (7.5-11.2); Platelet Count 229 10^3/uL (150-450); Red Blood Count 3.26 10^6/uL (4.06-5.63)
[2023-03-05 05:07] LABS: Calcium 7.6 mg/dL (8.6-10.3); Creatinine, Serum 0.91 mg/dL (0.67-1.17); Magnesium 2.4 mg/dL (1.9-2.7); Phosphorus 2.8 mg/dL (2.5-5.0); Potassium 3.7 mmol/L (3.5-5.0); eGFR CKD-EPI 83.1 (>60)
[2023-03-05] MEDS: Vancomycin SOL ORALSYR 50 MG/ML ML PO SCH ×4 (08:25→17:47)
[2023-03-05] MEDS: Carbidopa/Levodop 25/100 MG TAB PO SCH ×3 (08:26→21:06)
[2023-03-05] MEDS: DULoxetine DR 60 mg CAP PO SCH (08:26)
[2023-03-05] MEDS: Senna TAB 8.6 mg TAB PO SCH (22:25)
[2023-03-06] MEDS: metroNIDAZOLE IV 500 MG/100ML 500 MG/100 ML BAG IVPB SCH ×4 (00:33→23:50)
[2023-03-06] MEDS: Vancomycin SOL ORALSYR 50 MG/ML ML PO SCH ×5 (00:33→23:50)
[2023-03-06 04:32] LABS: ABS Basophils 0.1 10^3/uL (0.0-0.1); ABS Eosinophils 0.3 10^3/uL (0.0-0.5); ABS Lymphocytes 1.1 10^3/uL (1.0-4.8); ABS Monocytes 0.5 10^3/uL (0.0-1.1); ABS Neutrophils 7.5 10^3/uL (1.5-7.6); ABS Nucleated RBC 0.01 10^3/ul; Eosinophil % 3.5 %; Hematocrit 32.3 % (38-53); Hemoglobin 11.2 g/dL (13.2-16.3); Lymphocyte % 11.7 %; Mean Corpuscular Hemoglobin 34.4 pg (27-33); Mean Corpuscular Hgb Conc 34.6 g/dL (31-36); Mean Corpuscular Volume 99.4 fL (80-97); Mean Platelet Volume 7.6 fL (7.5-11.2); Nucleated Red Blood Cells % 0.1 /100 WBC (0.0-0.4); Platelet Count 229 10^3/uL (150-450); Red Blood Count 3.25 10^6/uL (4.06-5.63); Red Cell Distribution Width 14.9 % (12-17); White Blood Count 9.5 10^3/uL (3.6-10.2)
[2023-03-06 04:47] LABS: Creatinine, Serum 0.73 mg/dL (0.67-1.17); Magnesium 2.3 mg/dL (1.9-2.7); Phosphorus 2.5 mg/dL (2.5-5.0); Potassium 3.5 mmol/L (3.5-5.0); eGFR CKD-EPI 89.7 (>60)
[2023-03-06] MEDS: Carbidopa/Levodop 25/100 MG TAB PO SCH ×3 (09:15→22:51)
[2023-03-06] MEDS: DULoxetine DR 60 mg CAP PO SCH (09:15)
[2023-03-06] MEDS: Senna TAB 8.6 mg TAB PO SCH (22:51)
[2023-03-07] MEDS: Vancomycin SOL ORALSYR 50 MG/ML ML PO SCH ×4 (05:44→23:13)
[2023-03-07 06:24] LABS: ABS Basophils 0.1 10^3/uL (0.0-0.1); ABS Eosinophils 0.3 10^3/uL (0.0-0.5); ABS Lymphocytes 1.2 10^3/uL (1.0-4.8); ABS Monocytes 0.6 10^3/uL (0.0-1.1); ABS Neutrophils 7.3 10^3/uL (1.5-7.6); Eosinophil % 3.5 %; Hematocrit 30.2 % (38-53); Hemoglobin 10.5 g/dL (13.2-16.3); Lymphocyte % 12.4 %; Mean Corpuscular Hemoglobin 34.7 pg (27-33); Mean Corpuscular Hgb Conc 34.8 g/dL (31-36); Mean Corpuscular Volume 99.7 fL (80-97); Mean Platelet Volume 7.4 fL (7.5-11.2); Platelet Count 259 10^3/uL (150-450); Red Blood Count 3.02 10^6/uL (4.06-5.63); Red Cell Distribution Width 15.1 % (12-17); White Blood Count 9.4 10^3/uL (3.6-10.2)
[2023-03-07 06:42] LABS: Calcium 8.2 mg/dL (8.6-10.3); Creatinine, Serum 0.6 mg/dL (0.67-1.17); Phosphorus 2.5 mg/dL (2.5-5.0); Potassium 3.6 mmol/L (3.5-5.0); eGFR CKD-EPI 95.2 (>60)
[2023-03-07] MEDS: DULoxetine DR 60 mg CAP PO SCH (08:30)
[2023-03-07] MEDS: Carbidopa/Levodop 25/100 MG TAB PO SCH ×3 (08:31→21:20)
[2023-03-07] MEDS: metroNIDAZOLE IV 500 MG/100ML 500 MG/100 ML BAG IVPB SCH ×3 (08:32→23:13)
[2023-03-07] MEDS: Senna TAB 8.6 mg TAB PO SCH (21:21)
[2023-03-08 04:55] LABS: ABS Basophils 0.1 10^3/uL (0.0-0.1); ABS Eosinophils 0.3 10^3/uL (0.0-0.5); ABS Lymphocytes 1.5 10^3/uL (1.0-4.8); ABS Monocytes 0.6 10^3/uL (0.0-1.1); ABS Neutrophils 5.4 10^3/uL (1.5-7.6); Eosinophil % 3.9 %; Hematocrit 30.1 % (38-53); Hemoglobin 10.3 g/dL (13.2-16.3); Lymphocyte % 18.5 %; Mean Corpuscular Hemoglobin 34.5 pg (27-33); Mean Corpuscular Hgb Conc 34.4 g/dL (31-36); Mean Corpuscular Volume 100.5 fL (80-97); Mean Platelet Volume 7.3 fL (7.5-11.2); Nucleated Red Blood Cells % 0.1 /100 WBC (0.0-0.4); Platelet Count 294 10^3/uL (150-450); Red Blood Count 2.99 10^6/uL (4.06-5.63); Red Cell Distribution Width 15.1 % (12-17); White Blood Count 7.8 10^3/uL (3.6-10.2)
[2023-03-08] MEDS: Vancomycin SOL ORALSYR 50 MG/ML ML PO SCH ×4 (05:01→23:21)
[2023-03-08 05:10] LABS: Calcium 8.1 mg/dL (8.6-10.3); Creatinine, Serum 0.55 mg/dL (0.67-1.17); Magnesium 1.9 mg/dL (1.9-2.7); Potassium 3.5 mmol/L (3.5-5.0); eGFR CKD-EPI 97.7 (>60)
[2023-03-08] MEDS: metroNIDAZOLE IV 500 MG/100ML 500 MG/100 ML BAG IVPB SCH ×3 (08:43→23:21)
[2023-03-08] MEDS: DULoxetine DR 60 mg CAP PO SCH (08:46)
[2023-03-08] MEDS: Carbidopa/Levodop 25/100 MG TAB PO SCH ×3 (08:47→20:17)
[2023-03-08] MEDS: Senna TAB 8.6 mg TAB PO SCH (20:18)
[2023-03-09 04:58] LABS: ABS Basophils 0.1 10^3/uL (0.0-0.1); ABS Eosinophils 0.3 10^3/uL (0.0-0.5); ABS Lymphocytes 1.7 10^3/uL (1.0-4.8); ABS Monocytes 0.6 10^3/uL (0.0-1.1); ABS Neutrophils 4.8 10^3/uL (1.5-7.6); ABS Nucleated RBC 0.01 10^3/ul; Eosinophil % 3.8 %; Hematocrit 28.1 % (38-53); Hemoglobin 9.8 g/dL (13.2-16.3); Lymphocyte % 22.6 %; Mean Corpuscular Hemoglobin 34.7 pg (27-33); Mean Corpuscular Hgb Conc 34.8 g/dL (31-36); Mean Corpuscular Volume 99.8 fL (80-97); Nucleated Red Blood Cells % 0.1 /100 WBC (0.0-0.4); Platelet Count 328 10^3/uL (150-450); Red Blood Count 2.82 10^6/uL (4.06-5.63); Red Cell Distribution Width 15.2 % (12-17); White Blood Count 7.5 10^3/uL (3.6-10.2)
[2023-03-09 05:16] LABS: Blood Urea Nitrogen 19 mg/dL (6-24); CO2 Carbon Dioxide 32 mmol/L (22-32); Calcium 8.2 mg/dL (8.6-10.3); Chloride 110 mmol/L (101-111); Creatinine, Serum 0.52 mg/dL (0.67-1.17); Glucose 100 mg/dL (70-100); Magnesium 1.9 mg/dL (1.9-2.7); Phosphorus 2.5 mg/dL (2.5-5.0); Potassium 3.6 mmol/L (3.5-5.0); Sodium 142 mmol/L (135-145); eGFR CKD-EPI 99.4 (>60)
[2023-03-09] MEDS: Vancomycin SOL ORALSYR 50 MG/ML ML PO SCH ×3 (05:59→18:04)
[2023-03-09] MEDS: metroNIDAZOLE IV 500 MG/100ML 500 MG/100 ML BAG IVPB SCH ×2 (08:50→16:00)
[2023-03-09] MEDS: Carbidopa/Levodop 25/100 MG TAB PO SCH ×3 (08:54→20:46)
[2023-03-09] MEDS: DULoxetine DR 60 mg CAP PO SCH (08:55)
[2023-03-10] MEDS: metroNIDAZOLE IV 500 MG/100ML 500 MG/100 ML BAG IVPB SCH ×4 (00:06→23:32)
[2023-03-10] MEDS: Vancomycin SOL ORALSYR 50 MG/ML ML PO SCH ×5 (00:06→23:32)
[2023-03-10] MEDS: Carbidopa/Levodop 25/100 MG TAB PO SCH ×3 (08:13→21:07)
[2023-03-10] MEDS: DULoxetine DR 60 mg CAP PO SCH (08:14)
[2023-03-10] MEDS ORDERED: Polyethylene Glycol 3350 17 GM PACKET PO SCH (09:00)
[2023-03-10] MEDS: Calcium/Vitamin D TAB 250/125 TAB PO SCH ×2 (10:15→21:07)
[2023-03-11 05:11] LABS: ABS Basophils 0.1 10^3/uL (0.0-0.1); ABS Eosinophils 0.3 10^3/uL (0.0-0.5); ABS Lymphocytes 1.9 10^3/uL (1.0-4.8); ABS Monocytes 0.8 10^3/uL (0.0-1.1); ABS Neutrophils 8.3 10^3/uL (1.5-7.6); ABS Nucleated RBC 0.01 10^3/ul; Eosinophil % 2.5 %; Hematocrit 30.2 % (38-53); Hemoglobin 10.4 g/dL (13.2-16.3); Lymphocyte % 16.4 %; Mean Corpuscular Hemoglobin 34.3 pg (27-33); Mean Corpuscular Hgb Conc 34.5 g/dL (31-36); Mean Corpuscular Volume 99.3 fL (80-97); Mean Platelet Volume 7.1 fL (7.5-11.2); Platelet Count 433 10^3/uL (150-450); Red Blood Count 3.05 10^6/uL (4.06-5.63); Red Cell Distribution Width 15.7 % (12-17); White Blood Count 11.3 10^3/uL (3.6-10.2)
[2023-03-11 05:28] LABS: Calcium 8.3 mg/dL (8.6-10.3); Creatinine, Serum 0.57 mg/dL (0.67-1.17); Potassium 3.7 mmol/L (3.5-5.0); eGFR CKD-EPI 96.7 (>60)
[2023-03-11] MEDS: Vancomycin SOL ORALSYR 50 MG/ML ML PO SCH ×2 (06:24→19:35)
[2023-03-11] MEDS: Carbidopa/Levodop 25/100 MG TAB PO SCH ×3 (10:19→22:11)
[2023-03-11] MEDS: DULoxetine DR 60 mg CAP PO SCH (10:23)
[2023-03-11] MEDS: Calcium/Vitamin D TAB 250/125 TAB PO SCH ×2 (10:23→22:10)
[2023-03-11] MEDS: metroNIDAZOLE IV 500 MG/100ML 500 MG/100 ML BAG IVPB SCH ×2 (10:24→17:19)
[2023-03-12] MEDS: metroNIDAZOLE IV 500 MG/100ML 500 MG/100 ML BAG IVPB SCH ×3 (00:21→16:07)
[2023-03-12 06:48] LABS: ABS Eosinophils 0.3 10^3/uL (0.0-0.5); ABS Lymphocytes 1.8 10^3/uL (1.0-4.8); ABS Monocytes 0.7 10^3/uL (0.0-1.1); ABS Neutrophils 7.3 10^3/uL (1.5-7.6); ABS Nucleated RBC 0.02 10^3/ul; Eosinophil % 2.5 %; Hematocrit 29.7 % (38-53); Hemoglobin 10.3 g/dL (13.2-16.3); Lymphocyte % 17.5 %; Mean Corpuscular Hemoglobin 34.5 pg (27-33); Mean Corpuscular Hgb Conc 34.5 g/dL (31-36); Mean Corpuscular Volume 100.2 fL (80-97); Nucleated Red Blood Cells % 0.2 /100 WBC (0.0-0.4); Platelet Count 439 10^3/uL (150-450); Red Blood Count 2.97 10^6/uL (4.06-5.63); Red Cell Distribution Width 15.6 % (12-17)
[2023-03-12 07:03] LABS: Calcium 8.2 mg/dL (8.6-10.3); Creatinine, Serum 0.61 mg/dL (0.67-1.17); Magnesium 1.9 mg/dL (1.9-2.7); Potassium 3.7 mmol/L (3.5-5.0); eGFR CKD-EPI 94.7 (>60)
[2023-03-12] MEDS: Carbidopa/Levodop 25/100 MG TAB PO SCH ×3 (08:33→21:16)
[2023-03-12] MEDS: DULoxetine DR 60 mg CAP PO SCH (08:34)
[2023-03-12] MEDS: Calcium/Vitamin D TAB 250/125 TAB PO SCH ×2 (08:35→21:16)
[2023-03-12 13:03] LABS: Rapid COVID-19 Molecular Undetected (Undetected)
[2023-03-13] MEDS: metroNIDAZOLE IV 500 MG/100ML 500 MG/100 ML BAG IVPB SCH ×2 (00:07→08:03)
[2023-03-13] MEDS: Carbidopa/Levodop 25/100 MG TAB PO SCH ×2 (08:12→12:54)
[2023-03-13] MEDS: Calcium/Vitamin D TAB 250/125 TAB PO SCH (08:12)
[2023-03-13] MEDS: DULoxetine DR 60 mg CAP PO SCH (08:13)
[2023-03-13 12:18] VITALS: BP 119/49
== END 2023-03-13 13:06 | DRG 689 ==
LOC: ED 18:07 → EDHOLD 18:07 → SUATTDRO 21:32 → MED 22:55 → SUATTDRO 02-22 13:00 → ICU 02-24 14:52 → MED 02-27 04:39 → ICU 03-04 02:00 → MEDTELE 03-10 23:37
PROVIDERS: ADMIT Student in an Organized Health Care Education/Training Program; ATTEND Student in an Organized Health Care Education/Training Program

== ENCOUNTER 2023-09-22 12:51 | Inpatient (IN) ==
[2023-09-22 13:41] LABS: ABS Basophils 0.1 10^3/uL (0.0-0.1); ABS Lymphocytes 0.9 10^3/uL (1.0-4.8); ABS Monocytes 0.6 10^3/uL (0.0-1.1); ABS Neutrophils 5.1 10^3/uL (1.5-7.6); ABS Nucleated RBC 0.01 10^3/ul; Eosinophil % 0.7 %; Hemoglobin 12.1 g/dL (13.2-16.3); Lymphocyte % 13.5 %; Mean Corpuscular Hgb Conc 33.6 g/dL (31-36); Mean Corpuscular Volume 101.2 fL (80-97); Mean Platelet Volume 7.3 fL (7.5-11.2); Nucleated Red Blood Cells % 0.1 %/100WBC (0.0-0.8); Platelet Count 141 10^3/uL (150-450); Red Blood Count 3.56 10^6/uL (4.06-5.63); Red Cell Distribution Width 16.1 % (12-17); White Blood Count 6.7 10^3/uL (3.6-10.2)
[2023-09-22 13:59] LABS: INR 1.23 (0.83-1.13)
[2023-09-22 14:21] LABS: Albumin 3.5 g/dL (3.2-5.2); Albumin/Globulin Ratio 1.4 (1-3); Calcium 8.4 mg/dL (8.6-10.3); Creatinine, Serum 1.13 mg/dL (0.67-1.17); Globulin 2.5 g/dL (2-4); Potassium 4.1 mmol/L (3.5-5.0); Total Bilirubin 0.8 mg/dL (0.2-1.0); eGFR CKD-EPI 64.1 (>60)
[2023-09-22 15:13] LABS: High Sensitivity Troponin 1 Hr 19 pg/mL (<20)
[2023-09-22] MEDS: Carbidopa/Levodop 25/100 MG TAB PO SCH (21:27)
[2023-09-22] MEDS ORDERED: Morphine 2 MG/ML SYRINGE IV PRN (21:29)
[2023-09-22] MEDS: Acetaminophen IV 1 GM/100ML 1,000 MG/100 ML BAG IV SCH (21:50)
[2023-09-22] MEDS: Lactated Ringers 1000 ml BAG 1,000 ML IV SCH (22:06)
[2023-09-22] MEDS: Heparin 5000 UNITS/ML 1 mL VIAL SUBCUT ONE (23:32)
[2023-09-23 08:00] LABS: ABS Basophils 0.1 10^3/uL (0.0-0.1); ABS Eosinophils 0.1 10^3/uL (0.0-0.5); ABS Lymphocytes 1.6 10^3/uL (1.0-4.8); ABS Monocytes 0.7 10^3/uL (0.0-1.1); ABS Neutrophils 3.6 10^3/uL (1.5-7.6); Eosinophil % 2.4 %; Hematocrit 32.7 % (38-53); Lymphocyte % 25.8 %; Mean Corpuscular Hemoglobin 34.3 pg (27-33); Mean Corpuscular Hgb Conc 33.6 g/dL (31-36); Mean Corpuscular Volume 101.8 fL (80-97); Nucleated Red Blood Cells % 0.1 %/100WBC (0.0-0.8); Platelet Count 126 10^3/uL (150-450); Red Blood Count 3.21 10^6/uL (4.06-5.63); Red Cell Distribution Width 16.4 % (12-17); White Blood Count 6.1 10^3/uL (3.6-10.2)
[2023-09-23 08:11] LABS: Calcium 8.4 mg/dL (8.6-10.3); Creatinine, Serum 1.36 mg/dL (0.67-1.17); Potassium 4.6 mmol/L (3.5-5.0); eGFR CKD-EPI 51.3 (>60)
[2023-09-23] MEDS: Amiodarone 150 mg IVPREMIX 150 MG/100 ML BAG IV ONE (10:05)
[2023-09-23] MEDS: CRANBERRY 400 MG PO SCH (11:33)
[2023-09-23] MEDS: DULoxetine DR 60 mg CAP PO SCH (11:33)
[2023-09-23] MEDS ORDERED: Lidocaine 2% PF 5 ML VIAL ONE (11:50)
[2023-09-23] MEDS ORDERED: Dexamethasone IV 4 MG/ML VIAL 1 ml VIAL ONE (11:50)
[2023-09-23] MEDS ORDERED: Rocuronium 50 mg VIAL 10 mg/ml 5 ml VIAL (50 mg) ONE (11:50)
[2023-09-23] MEDS ORDERED: Sterile Water for Inj 10 ML ONE (11:50)
[2023-09-23] MEDS ORDERED: fentaNYL 100 mcg/2 ml 50 MCG/ML VIAL ONE (11:50)
[2023-09-23] MEDS ORDERED: Propofol 10 MG/ML 20 ML BTL ONE ×3 (11:50→15:59)
[2023-09-23] MEDS ORDERED: Ondansetron 4 mg VIAL 2 MG/ML 2 ml VIAL ONE (11:50)
[2023-09-23] MEDS ORDERED: ceFAZolin 2 GM PREMIX 2 GM/50 ML BAG ONE (14:10)
[2023-09-23] MEDS ORDERED: Tranexamic Acid 1,000 MG/10 ML SDV ONE (14:24)
[2023-09-23] MEDS ORDERED: Bupivacaine 0.5% PF 10 ML SDV VIAL INJ ONE (15:34)
[2023-09-23] MEDS ORDERED: Glycopyrrolate IV 0.2 MG/ML 1 ML VIAL ONE (15:47)
[2023-09-23] MEDS ORDERED: ROPIVACAINE 5 MG/ML 30 ML BTL (0.5%) ONE (15:49)
[2023-09-23] MEDS ORDERED: Magnesium Hydroxide LIQ 30 ML UDC PO PRN (17:58)
[2023-09-23] MEDS ORDERED: Ondansetron ODT 4 mg TAB 4 MG TAB PO PRN (17:58)
[2023-09-23] MEDS ORDERED: Ondansetron 4 mg VIAL 2 MG/ML 2 ml VIAL IV PRN (17:58)
[2023-09-23] MEDS: Lactated Ringers 1000 ml BAG 1,000 ML IV SCH (20:00)
[2023-09-23] MEDS: Magnesium Hydroxide LIQ 30 ML UDC PO SCH (20:20)
[2023-09-23] MEDS: ceFAZolin 1 GM ADVAN 1 GM in NS 0.9% 50 ML 50 ML IVPB SCH (22:56)
[2023-09-24 06:28] LABS: ABS Lymphocytes 0.9 10^3/uL (1.0-4.8); ABS Monocytes 0.7 10^3/uL (0.0-1.1); ABS Neutrophils 8.5 10^3/uL (1.5-7.6); ABS Nucleated RBC 0.01 10^3/ul; Hematocrit 30.2 % (38-53); Hemoglobin 10.3 g/dL (13.2-16.3); Mean Corpuscular Hemoglobin 34.6 pg (27-33); Mean Corpuscular Hgb Conc 34.2 g/dL (31-36); Mean Corpuscular Volume 101.1 fL (80-97); Mean Platelet Volume 7.7 fL (7.5-11.2); Platelet Count 130 10^3/uL (150-450); Red Blood Count 2.98 10^6/uL (4.06-5.63); Red Cell Distribution Width 15.9 % (12-17); White Blood Count 10.2 10^3/uL (3.6-10.2)
[2023-09-24 06:52] LABS: INR 1.18 (0.83-1.13)
[2023-09-24 07:19] LABS: Albumin 3.2 g/dL (3.2-5.2); Albumin/Globulin Ratio 1.3 (1-3); Calcium 8.3 mg/dL (8.6-10.3); Creatinine, Serum 1.24 mg/dL (0.67-1.17); Globulin 2.4 g/dL (2-4); Potassium 4.6 mmol/L (3.5-5.0); Total Bilirubin 0.5 mg/dL (0.2-1.0); Total Protein 5.6 g/dL (6.4-8.9); eGFR CKD-EPI 57.3 (>60)
[2023-09-24] MEDS: Enoxaparin 40 MG/0.4 ML SYR SUBCUT SCH (08:51)
[2023-09-24] MEDS: Vitamin THERAPEUTIC TAB PO SCH (08:52)
[2023-09-24] MEDS: Calcium/Vitamin D TAB 250/125 TAB PO SCH (08:52)
[2023-09-24 17:07] LABS: Urine Appearance Clear; Urine Bilirubin Negative (Negative); Urine Blood Negative (Negative); Urine Color Yellow; Urine Glucose Negative (Negative); Urine Ketones Trace (Negative); Urine Nitrite Negative (Negative); Urine Protein Negative (Negative); Urine Specific Gravity 1.023 (1.002-1.030); Urine Urobilinogen Negative (Negative)
[2023-09-25 01:42] LABS: Urine Appearance Clear; Urine Bilirubin Negative (Negative); Urine Blood Negative (Negative); Urine Color Yellow; Urine Glucose Negative (Negative); Urine Ketones Trace (Negative); Urine Nitrite Negative (Negative); Urine Protein Negative (Negative); Urine Specific Gravity 1.024 (1.002-1.030); Urine Urobilinogen Negative (Negative); Urine pH 5.5 (5.0-8.0)
[2023-09-25 06:13] LABS: Hematocrit 27.1 % (38-53); Hemoglobin 9.3 g/dL (13.2-16.3); Mean Corpuscular Hemoglobin 34.7 pg (27-33); Mean Corpuscular Hgb Conc 34.2 g/dL (31-36); Mean Corpuscular Volume 101.5 fL (80-97); Mean Platelet Volume 7.9 fL (7.5-11.2); Platelet Count 139 10^3/uL (150-450); Red Blood Count 2.67 10^6/uL (4.06-5.63); Red Cell Distribution Width 16.3 % (12-17); White Blood Count 8.5 10^3/uL (3.6-10.2)
[2023-09-25 06:36] LABS: Albumin/Globulin Ratio 1.4 (1-3); Calcium 8.1 mg/dL (8.6-10.3); Creatinine, Serum 1.09 mg/dL (0.67-1.17); Globulin 2.1 g/dL (2-4); Potassium 4.6 mmol/L (3.5-5.0); Total Bilirubin 0.5 mg/dL (0.2-1.0); Total Protein 5.1 g/dL (6.4-8.9); eGFR CKD-EPI 66.9 (>60)
[2023-09-25] MEDS: Iron Sucrose 200 MG in NS 0.9% 100 ml BAG 100 ML IVPB ONE (10:12)
[2023-09-26 06:23] LABS: Hematocrit 26.6 % (38-53); Hemoglobin 9.2 g/dL (13.2-16.3); Mean Platelet Volume 7.8 fL (7.5-11.2); Platelet Count 167 10^3/uL (150-450)
[2023-09-26] MEDS: Lactulose 30 ml UDC PO PRN (08:56)
[2023-09-26] MEDS: Polyethylene Glycol 3350 17 GM PACKET PO SCH (09:12)
[2023-09-26 10:58] VITALS: BP 117/40
[2023-09-26 12:48] LABS: Rapid COVID-19 Molecular Undetected (Undetected)
== END 2023-09-26 13:25 | DRG 481 ==
LOC: ED 12:51 → SUATTDRO 20:24 → EDHOLD 20:24 → SSU 09-23 09:31 → EDHOLD 09-23 09:32 → SSU 09-23 09:48
PROVIDERS: ADMIT Internal Medicine; ATTEND Hospitalist